=== PATIENT | female | born 1955 | race Caucasian/White ===

== ENCOUNTER 2017-09-29 22:50 | Inpatient (IN) | payer MEDICARE, OTHER ==
[~2017-09-29] VITALS: Ht 162.6 cm; Wt 61.0 kg
[~2017-09-29 22:50] MED LIST: ACET325T9 PO; ASPI-612 PO; BISA10SU2 RC; CALC500T54 PO; CITA20TA9 PO; DOCU-109 PO; FELB400T2 PO; FERR325T14 PO; LACO150T PO; LEVE250T30 PO; LOPE2CAP PO; PHEN32.424 PO; SENN1TAB15 PO; TRAM50TA PO; [UNRECOGNIZED DRUG - CODE] PO
[2017-09-29] MEDS ORDERED: ACETAMINOPHEN 325 MG TABLET PO PRN (23:15)
[2017-09-29] MEDS ORDERED: MAG HYDROX/AL HYDROX/SIMETH 30 ML ORAL.SUSP PO PRN (23:15)
[2017-09-29] MEDS ORDERED: MAGNESIUM HYDROXIDE 2,400 MG/30 ML ORAL.SUSP. PO PRN (23:15)
[2017-09-29] MEDS ORDERED: METHYL SALICYLATE/MENTHOL TOPICAL OINTMENT 29GM TUBE. TP PRN (23:15)
[2017-09-30] MEDS ORDERED: PHEN64.8 PO (00:02)
[2017-09-30] MEDS ORDERED: MULT1TAB57 PO (00:02)
[2017-09-30] MEDS ORDERED: CHOL10003 PO (00:02)
[2017-09-30] MEDS ORDERED: CALC500O PO (00:02)
[2017-09-30] MEDS ORDERED: MAGN400T3 PO (00:02)
[2017-09-30] MEDS ORDERED: POTA10TA10 PO (00:02)
[2017-09-30] MEDS ORDERED: LEVO75TA5 PO (00:02)
[2017-09-30] MEDS ORDERED: PANT40TA5 PO (00:03)
[2017-09-30] MEDS ORDERED: SULF1TAB24 PO (00:03)
[2017-09-30] MEDS ORDERED: MAGN2400 PO (00:03)
[2017-09-30] MEDS ORDERED: VENL37.57 PO (00:03)
[2017-09-30] MEDS ORDERED: ATOR10TA60 PO (00:03)
[2017-09-30] MEDS ORDERED: POLY17PO5 PO (00:03)
[2017-09-30] MEDS ORDERED: QUET25TA5 PO (00:03)
[2017-09-30] MEDS ORDERED: HALO1TAB PO (00:03)
[2017-09-30] MEDS ORDERED: MAGNESIUM OXIDE 400 MG PO SCH (00:15)
[2017-09-30] MEDS ORDERED: NON FORMULARY ITEM (Quetiapine Fumarate (Seroquel) 25 MG) PO SCH (00:15)
[2017-09-30] MEDS ORDERED: SENNOSIDES/DOCUSATE 8.6/50MG TABLET. PO PRN (00:15)
[2017-09-30] MEDS ORDERED: NON FORMULARY ITEM (Polyethylene Glycol 3350 (Miralax) 17 GM) PO PRN (00:15)
[2017-09-30] MEDS ORDERED: CALCIUM CARBONATE PO SCH (00:15)
[2017-09-30] MEDS ORDERED: traMADol 50 MG TABLET PO PRN (00:15)
[2017-09-30] MEDS ORDERED: LACOSAMIDE 150 MG PO SCH (00:15)
[2017-09-30] MEDS ORDERED: LEVETIRACETAM 750 MG PO SCH (00:15)
[2017-09-30] MEDS ORDERED: HALOPERIDOL 1 MG PO SCH (00:15)
[2017-09-30] MEDS ORDERED: NON FORMULARY ITEM (Bisacodyl 10 MG) RC PRN (00:15)
[2017-09-30] MEDS ORDERED: POLYETHYLENE GLYCOL 3350 17 GM PACKET. PO PRN (01:15)
[2017-09-30] MEDS ORDERED: BISACODYL 10 MG SUPP.RECT PR PRN (01:15)
[2017-09-30] MEDS: LEVOTHYROXINE 75 MCG TABLET PO SCH (04:27)
[2017-09-30 08:30] LABS: BASO % 1 % (0-3); EOS # 0.5 x10^3/uL (0.0-0.7); EOS % 12 % (0-3); HEMATOCRIT 37.8 % (36.0-47.0); HEMOGLOBIN 12.9 g/dL (12.0-15.5); LYMPH # 1.4 x10^3/uL (1.0-4.8); LYMPH % 34 % (24-48); MEAN CORPUSCULAR HEMOGLOBIN 31 pg (25-35); MEAN CORPUSCULAR HGB CONC 34 g/dL (31-37); MEAN CORPUSCULAR VOLUME 91 fL (79-100); MONO # 0.4 x10^3/uL (0.0-1.1); MONO % 10 % (0-9); NEUT # 1.8 x10^3uL (1.8-7.7); NEUT % 43 % (31-73); PLATELET COUNT 201 x10^3/uL (140-400); RED BLOOD COUNT 4.14 x10^6/uL (3.50-5.40); RED CELL DISTRIBUTION WIDTH 13.4 % (11.5-14.5); WHITE BLOOD COUNT 4.1 x10^3/uL (4.0-11.0)
[2017-09-30] MEDS ORDERED: NON FORMULARY ITEM (Potassium Chloride 10 MEQ) PO SCH (09:00)
[2017-09-30] MEDS ORDERED: MULTIVITS TH W FE OTHER MIN PO SCH (09:00)
[2017-09-30] MEDS ORDERED: PANTOPRAZOLE SODIUM 40 MG PO SCH (09:00)
[2017-09-30 09:50] LABS: ALBUMIN 3.2 g/dL (3.4-5.0); ALBUMIN/GLOBULIN RATIO 0.9 (1.0-1.7); CALCIUM 9.3 mg/dL (8.5-10.1); CREATININE 0.5 mg/dL (0.6-1.0); GFR 124.2; MAGNESIUM 1.8 mg/dL (1.8-2.4); POTASSIUM 3.8 mmol/L (3.5-5.1); TOTAL BILIRUBIN 0.2 mg/dL (0.2-1.0); TOTAL PROTEIN 6.9 g/dL (6.4-8.2)
[2017-09-30] MEDS: FELBAMATE 400 MG TABLET PO SCH ×3 (10:00→19:47)
[2017-09-30] MEDS: SMZ/TMP 800/160MG TABLET. PO SCH ×2 (10:01→19:47)
[2017-09-30] MEDS: PANTOPRAZOLE 40 MG TABLET. PO SCH ×2 (10:02→16:32)
[2017-09-30] MEDS: HALOPERIDOL 1 MG TABLET PO SCH ×3 (10:02→16:32)
[2017-09-30] MEDS: CHOLECALCIFEROL (VITAMIN D3) 1,000 UNIT TABLET PO SCH (10:02)
[2017-09-30] MEDS: LACOSAMIDE 50 MG TABLET PO SCH ×2 (10:02→16:32)
[2017-09-30] MEDS: levETIRAcetam 250 MG TABLET PO SCH ×2 (10:02→16:32)
[2017-09-30] MEDS: MAGNESIUM OXIDE 400 MG TABLET PO SCH ×3 (10:03→19:43)
[2017-09-30] MEDS: VENLAFAXINE XR 37.5 MG CAP.ER.24H. PO SCH (10:03)
[2017-09-30] MEDS: QUEtiapine 25 MG TABLET. PO SCH ×3 (10:03→19:44)
[2017-09-30] MEDS: FERROUS SULFATE 325 MG TABLET. PO SCH ×2 (10:03→16:32)
[2017-09-30] MEDS: CALCIUM CARBONATE 500 MG TABLET PO SCH ×2 (10:04→16:34)
[2017-09-30 11:46] VITALS: BP 121/76
[2017-09-30 13:52] LABS: THYROID STIM HORMONE (TSH) 0.042 uIU/mL (0.358-3.740)
[2017-09-30 13:54] LABS: PHENOBARB 14.8 mcg/mL (15.0-40.0)
[2017-09-30 16:16] VITALS: BP 102/66
--- NOTE | 2017-09-30 16:58 | EKG ---
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
[2017-09-30] MEDS ORDERED: traZODone 50 MG TABLET. PO PRN (18:45)
[2017-09-30] MEDS: ATORVASTATIN CALCIUM 10 MG TABLET. PO SCH (19:47)
[2017-09-30] MEDS: PHENobarbital 32.4 MG TABLET. PO SCH (19:48)
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
[2017-09-30] MEDS ORDERED: VENLAFAXINE HCL PO SCH (21:00)
[2017-09-30] MEDS ORDERED: ATORVASTATIN CALCIUM 5 MG PO SCH (21:00)
[2017-09-30] MEDS ORDERED: PHENOBARBITAL 64.8 MG PO SCH (21:00)
--- NOTE | 2017-09-30 21:01 | PDOC ---
Exam Note: David Note: Please also refer to the separate dictated note~for this date of service dictated separately.~Patient seen individually. Discussed the patient with Nursing staff reviewed the chart.~Reviewed interim history and current functioning. Reviewed vital signs,~Labs/ Radiology~and current medications noted below. Continue current treatment with the changes noted in the dictated addendum note Assessment: Vital Signs: Vital Signs Date Time Temp Pulse Resp B/P (MAP) Pulse Ox O2 Delivery O2 Flow Rate FiO2 09/30/17 16:16 98.1 68 16 102/66 (78) 95 Room Air 09/30/17 11:46 96.0 Labs: Laboratory Tests Test 09/30/17 08:12 White Blood Count 4.1 x10^3/uL (4.0-11.0) Red Blood Count 4.14 x10^6/uL (3.50-5.40) Hemoglobin 12.9 g/dL (12.0-15.5) Hematocrit 37.8 % (36.0-47.0) Mean Corpuscular Volume 91 fL (79-100) Mean Corpuscular Hemoglobin 31 pg (25-35) Mean Corpuscular Hemoglobin Concent 34 g/dL (31-37) Red Cell Distribution Width 13.4 % (11.5-14.5) Platelet Count 201 x10^3/uL (140-400) Neutrophils (%) (Auto) 43 % (31-73) Lymphocytes (%) (Auto) 34 % (24-48) Monocytes (%) (Auto) 10 % (0-9) H Eosinophils (%) (Auto) 12 % (0-3) H Basophils (%) (Auto) 1 % (0-3) Neutrophils # (Auto) 1.8 x10^3uL (1.8-7.7) Lymphocytes # (Auto) 1.4 x10^3/uL (1.0-4.8) Monocytes # (Auto) 0.4 x10^3/uL (0.0-1.1) Eosinophils # (Auto) 0.5 x10^3/uL (0.0-0.7) Basophils # (Auto) 0.0 x10^3/uL (0.0-0.2) Sodium Level 143 mmol/L (136-145) Potassium Level 3.8 mmol/L (3.5-5.1) Chloride Level 105 mmol/L (98-107) Carbon Dioxide Level 32 mmol/L (21-32) Anion Gap 6 (6-14) Blood Urea Nitrogen 14 mg/dL (7-20) Creatinine 0.5 mg/dL (0.6-1.0) L Estimated GFR (Cockcroft-Gault) 124.2 BUN/Creatinine Ratio 28 (6-20) H Glucose Level 98 mg/dL (70-99) Calcium Level 9.3 mg/dL (8.5-10.1) Magnesium Level 1.8 mg/dL (1.8-2.4) Iron Level 77 ug/dL (50-170) Total Iron Binding Capacity 257 ug/dL (250-450) Iron Saturation 30 % (15-34) Total Bilirubin 0.2 mg/dL (0.2-1.0) Aspartate Amino Transferase (AST) 17 U/L (15-37) Alanine Aminotransferase (ALT) 20 U/L (14-59) Alkaline Phosphatase 136 U/L (46-116) H Total Protein 6.9 g/dL (6.4-8.2) Albumin 3.2 g/dL (3.4-5.0) L Albumin/Globulin Ratio 0.9 (1.0-1.7) L Triglycerides Level 80 mg/dL (0-150) Cholesterol Level 207 mg/dL (0-200) H LDL Cholesterol, Calculated 126 mg/dL (0-100) H VLDL Cholesterol, Calculated 16 mg/dL (0-40) Non-HDL Cholesterol Calculated 142 mg/dL (0-129) H HDL Cholesterol 65 mg/dL (40-60) H Cholesterol/HDL Ratio 3.0 Vitamin B12 Level 263 pg/mL (247-911) 25-Hydroxy Vitamin D Total 37.6 ng/mL (30-100) Thyroid Stimulating Hormone (TSH) 0.042 uIU/mL (0.358-3.740) Phenobarbital Level 14.8 mcg/mL (15.0-40.0) L Phenobarbital Last Dose Date 09/28/17 Phenobarbital Last Dose Time 21:00 Treponema pallidum Antibody Nonreactive (Nonreactive) Current Medications: Meds: Current Medications Acetaminophen (Tylenol) 650 mg PRN Q6HRS PRN PO PAIN / TEMP; Start 09/29/17 at 23:15 Multi-Ingredient Ointment (Analgesic [place]) 1 vale PRN QID PRN TP MUSCLE PAIN; Start 09/29/17 at 23:15 Al Hydroxide/Mg Hydroxide (Mylanta Plus Xs) 15 ml PRN AFTMEALHC PRN PO DYSPEPSIA; Start 09/29/17 at 23:15 Magnesium Hydroxide (Milk Of Magnesia) 2,400 mg PRN QHS PRN PO CONSTIPATION; Start 09/29/17 at 23:15 Non-Formulary Medication (Haloperidol ) 1 mg TID AT 12/26/1699 PO ; Start at 00:15; Stop 09/30/17 at 00:58; Status DC Non-Formulary Medication (Quetiapine Fumarate (Seroquel)) 25 mg TID AT 1999 PO ; Start 09/30/17 at 00:15; Stop 09/30/17 at 00:58; Status DC Non-Formulary Medication (Venlafaxine Hcl (Venlafaxine Hcl Er)) 112.5 mg HS PO ; Start 09/30/17 at 21:00; Stop 09/30/17 at 21:00; Status DC Vitamin D (Vitamin D3) 1,000 unit DAILY PO Last administered on 09/30/17at 10:02 ; Start 09/30/17 at 09:00 Felbamate (Felbatol) 800 mg TID PO Last administered on 09/30/17at 19:47; Start 09/30/17 at 09:00 Ferrous Sulfate (Feosol) 325 mg BIDAFTMEAL PO Last administered on 09/30/17at 16 :32; Start 09/30/17 at 09:00 Levothyroxine Sodium (Synthroid) 75 mcg DAILY06 PO Last administered on at 04:27; Start 09/30/17 at 06:00 Senna/Docusate Sodium (Senna Plus) 1 tab PRN BID PRN PO CONSTIPATION; Start at 00:15 Trimethoprim/ Sulfamethoxazole (Bactrim Ds) 1 tab BID PO Last administered on at 19:47; Start 09/30/17 at 09:00 Tramadol HCl (Ultram) 50 mg PRN Q6HRS PRN PO PAIN; Start 09/30/17 at 00:15 Non-Formulary Medication (Atorvastatin Calcium ) 5 mg QHS PO ; Start 09/30/17 at 21:00; Stop 09/30/17 at 21:00; Status DC Non-Formulary Medication (Bisacodyl ) 10 mg PRN DAILY PRN RC CONSTIPATION; Start 09/30/17 at 00:15; Stop 09/30/17 at 00:58; Status DC Non-Formulary Medication (Calcium Carbonate ) 5 ml BID AT 0600, 1800 PO ; Start 09/30/17 at 00:15; Stop 09/30/17 at 00:58; Status DC Non-Formulary Medication (Lacosamide (Vimpat)) 150 mg BID AT 0900, 1700 PO ; Start 09/30/17 at 00:15; Stop 09/30/17 at 00:58; Status DC Non-Formulary Medication (Levetiracetam (Keppra)) 750 mg BID AT 0900, 1700 PO ; Start 09/30/17 at 00:15; Stop 09/30/17 at 00:58; Status DC Non-Formulary Medication (Magnesium Oxide ) 400 mg TID AT 12/30/2099 PO ; Start 09/30/17 at 00:15; Stop 09/30/17 at 00:58; Status DC Non-Formulary Medication (Multivits,Th W-Fe,Other Min (Therems-M)) 1 tab DAILY PO ; Start 09/30/17 at 09:00; Stop 09/30/17 at 09:00; Status DC Non-Formulary Medication (Pantoprazole Sodium ) 40 mg BID PO ; Start 09/30/17 at 09:00; Stop 09/30/17 at 09:00; Status DC Non-Formulary Medication (Phenobarbital ) 64.8 mg HS PO ; Start 09/30/17 at 21: 00; Stop 09/30/17 at 21:00; Status DC Non-Formulary Medication (Polyethylene Glycol 3350 (Miralax)) 17 gm PRN DAILY PRN PO CONSTIPATION; Start 09/30/17 at 00:15; Stop 09/30/17 at 00:58; Status DC Non-Formulary Medication (Potassium Chloride ) 10 meq DAILY PO ; Start 09/30/17 at 09:00; Stop 09/30/17 at 09:00; Status DC Haloperidol (Haldol) 1 mg TIDPC PO Last administered on 09/30/17 16:32; Start 09/30/17 at 08:30 Quetiapine Fumarate (SEROquel) 25 mg TID PO Last administered on 09/30/17 19: 44; Start 09/30/17 at 09:00 Venlafaxine HCl (Effexor Xr) 112.5 mg DAILY PO Last administered on 09/30/17 10:03; Start 09/30/17 at 09:00 Calcium Carbonate/ Glycine (Oscal) 1,250 mg BID66 PO Last administered on 16:34; Start 09/30/17 at 06:00 Pantoprazole Sodium (Protonix) 40 mg BIDBFRMEAL PO Last administered on 16:32; Start 09/30/17 at 07:30 Magnesium Oxide (Magnesium Oxide) 400 mg TID PO Last administered on 09/30/17 19:43; Start 09/30/17 at 09:00 Atorvastatin Calcium (Lipitor) 5 mg QHS PO Last administered on 09/30/17 19:47 ; Start 09/30/17 at 21:00 Lacosamide (Vimpat) 200 mg BIDAFTMEAL PO Last administered on 09/30/17 16:32; Start 09/30/17 at 09:00 Levetiracetam (Keppra) 750 mg BIDAFTMEAL PO Last administered on 09/30/17 16: 32; Start 09/30/17 at 09:00 Phenobarbital (Luminal) 64.8 mg QHS PO Last administered on 09/30/17 19:48; Start 09/30/17 at 21:00 Polyethylene Glycol (miraLAX) 17 gm PRN DAILY PRN PO CONSTIPATION; Start at 01:15 Bisacodyl (Dulcolax Supp) 10 mg PRN DAILY PRN [place] CONSTIPATION; Start 09/30/17 at 01:15 Trazodone HCl (Desyrel) 50 mg PRN QHS PRN PO INSOMNIA; Start 09/30/17 at 18:45 Active Scripts Active Reported Bactrim Ds Tablet (Sulfamethoxazole/Trimethoprim) 1 Each Tablet 1 Tab PO BID X3 DAYS Miralax (Polyethylene Glycol 3350) 17 Gm Powd.pack 17 Gm PO PRN DAILY PRN Milk Of Magnesia (Magnesium Hydroxide) 2,400 Mg/10 Ml Oral.susp 2,400 Mg PO PRN DAILY PRN Venlafaxine Hcl Er (Venlafaxine Hcl) 37.5 Mg Cap.er.24h 112.5 Mg PO HS Atorvastatin Calcium 10 Mg Tablet 5 Mg PO QHS Seroquel (Quetiapine Fumarate) 25 Mg Tablet 25 Mg PO TID AT 12/28/1999 Haloperidol 1 Mg Tablet 1 Mg PO TID AT 12/26/1699 Pantoprazole Sodium 40 Mg Tablet.dr 40 Mg PO BID Vitamin D3 (Cholecalciferol (Vitamin D3)) 1,000 Unit Tablet 1,000 Unit PO DAILY Therems-M (Multivits, W-,Other Min) 1 Each Tablet 1 Tab PO DAILY Potassium Chloride 10 Meq Tablet.er 10 Meq PO DAILY Levothyroxine Sodium 75 Mcg Tablet 75 Mcg PO DAILYAC Phenobarbital 64.8 Mg Tablet 64.8 Mg PO HS Calcium Carbonate 500 Mg/5 Ml Oral.susp 5 Ml PO BID AT 0600, 1800 Magnesium Oxide 400 Mg Tablet 400 Mg PO TID AT 12/30/2099 Vimpat (Lacosamide) 150 Mg Tablet 150 Mg PO BID AT 0900, 1700 Tylenol (Acetaminophen) 325 Mg Tablet 650 Mg PO PRN Q6HRS PRN Tramadol Hcl (Tramadol HCl) 50 Mg Tablet 50 Mg PO PRN Q6HRS PRN Senna-S Tablet (Sennosides/Docusate Sodium) 1 Each Tablet 1 Tab PO PRN BID PRN Keppra (Levetiracetam) 250 Mg Tablet 750 Mg PO BID AT 0900, 1700 Ferrous Sulfate 325 Mg Tablet 325 Mg PO BIDAFTMEAL Bisacodyl 10 Mg Supp.rect 10 Mg RC PRN DAILY PRN Felbamate 400 Mg Tablet 800 Mg PO TID AT 12/26/1699 I have reviewed the current psychotropics carefully including drug interactions. Risk benefit ratio favors no change other than as noted in my dictated progress note. Diagnosis: Problems: (1) Functional diarrhea (2) urinary tract infection (3) Left hip arthroplasty (4) Severe major depression with psychotic features (5) Adjustment disorder with depressed mood (6) Bipolar affective, mixed (7) Impulse control disorder (8) Dementia, vascular, with delusions (9) Dementia, vascular, with depression HARVEY QUIJANO MD Sep 30, 2017 21:01
[2017-10-01 01:10] LABS: HEMOGLOBIN A1C 5.1 % (4.8-5.6)
[2017-10-01 02:08] LABS: THYROXINE 8.2 ug/dL (4.5-12.0)
[2017-10-01] MEDS: LEVOTHYROXINE 75 MCG TABLET PO SCH (05:58)
[2017-10-01] MEDS: CALCIUM CARBONATE 500 MG TABLET PO SCH ×2 (05:58→17:49)
[2017-10-01 06:08] VITALS: BP 91/61
[2017-10-01] MEDS: MAGNESIUM OXIDE 400 MG TABLET PO SCH ×3 (08:22→20:07)
[2017-10-01] MEDS: SMZ/TMP 800/160MG TABLET. PO SCH ×2 (08:22→20:07)
[2017-10-01] MEDS: HALOPERIDOL 1 MG TABLET PO SCH ×4 (08:22→20:10)
[2017-10-01] MEDS: CHOLECALCIFEROL (VITAMIN D3) 1,000 UNIT TABLET PO SCH (08:23)
[2017-10-01] MEDS: QUEtiapine 25 MG TABLET. PO SCH ×3 (08:23→20:07)
[2017-10-01] MEDS: LACOSAMIDE 50 MG TABLET PO SCH ×2 (08:27→17:48)
[2017-10-01] MEDS: levETIRAcetam 250 MG TABLET PO SCH ×2 (08:27→17:49)
[2017-10-01] MEDS: VENLAFAXINE XR 37.5 MG CAP.ER.24H. PO SCH (08:27)
[2017-10-01] MEDS: FELBAMATE 400 MG TABLET PO SCH ×3 (08:28→20:13)
[2017-10-01] MEDS: PANTOPRAZOLE 40 MG TABLET. PO SCH ×2 (08:30→17:49)
[2017-10-01] MEDS: FERROUS SULFATE 325 MG TABLET. PO SCH ×2 (08:30→17:49)
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
[2017-10-01 15:51] VITALS: BP 102/71
[2017-10-01] MEDS: ATORVASTATIN CALCIUM 10 MG TABLET. PO SCH (20:07)
[2017-10-01] MEDS: PHENobarbital 32.4 MG TABLET. PO SCH (20:10)
[2017-10-01] MEDS: LACTOBACILLUS RHAMNOSUS GG 1 CAPSULE. PO SCH (20:10)
--- NOTE | 2017-10-01 21:01 | PDOC ---
Exam Note: David Note: Please also refer to the separate dictated note~for this date of service dictated separately.~Patient seen individually. Discussed the patient with Nursing staff reviewed the chart.~Reviewed interim history and current functioning. Reviewed vital signs,~Labs/ Radiology~and current medications noted below. Continue current treatment with the changes noted in the dictated addendum note Assessment: Vital Signs: Vital Signs Date Time Temp Pulse Resp B/P (MAP) Pulse Ox O2 Delivery O2 Flow Rate FiO2 10/01/17 15:51 97.8 85 17 102/71 (81) 97 09/30/17 16:16 Room Air 09/30/17 11:46 96.0 I&O Intake and Output 10/01/17 07:00 Intake Total 300 ml Balance 300 ml Intake Oral 300 ml # Bowel Movements 1 Current Medications: Meds: Current Medications Acetaminophen (Tylenol) 650 mg PRN Q6HRS PRN PO PAIN / TEMP; Start 09/29/17 at 23:15 Multi-Ingredient Ointment (Analgesic [place]) 1 vale PRN QID PRN TP MUSCLE PAIN; Start 09/29/17 at 23:15 Al Hydroxide/Mg Hydroxide (Mylanta Plus Xs) 15 ml PRN AFTMEALHC PRN PO DYSPEPSIA; Start 09/29/17 at 23:15 Magnesium Hydroxide (Milk Of Magnesia) 2,400 mg PRN QHS PRN PO CONSTIPATION; Start 09/29/17 at 23:15 Non-Formulary Medication (Haloperidol ) 1 mg TID AT 12/26/1699 PO ; Start at 00:15; Stop 09/30/17 at 00:58; Status DC Non-Formulary Medication (Quetiapine Fumarate (Seroquel)) 25 mg TID AT 1999 PO ; Start 09/30/17 at 00:15; Stop 09/30/17 at 00:58; Status DC Non-Formulary Medication (Venlafaxine Hcl (Venlafaxine Hcl Er)) 112.5 mg HS PO ; Start 09/30/17 at 21:00; Stop 09/30/17 at 21:00; Status DC Vitamin D (Vitamin D3) 1,000 unit DAILY PO Last administered on 10/01/17at 08:23 ; Start 09/30/17 at 09:00 Felbamate (Felbatol) 800 mg TID PO Last administered on 10/01/17at 20:13; Start 09/30/17 at 09:00 Ferrous Sulfate (Feosol) 325 mg BIDAFTMEAL PO Last administered on 10/01/17at 17 :49; Start 09/30/17 at 09:00 Levothyroxine Sodium (Synthroid) 75 mcg DAILY06 PO Last administered on at 05:58; Start 09/30/17 at 06:00 Senna/Docusate Sodium (Senna Plus) 1 tab PRN BID PRN PO CONSTIPATION; Start at 00:15 Trimethoprim/ Sulfamethoxazole (Bactrim Ds) 1 tab BID PO Last administered on at 20:07; Start 09/30/17 at 09:00 Tramadol HCl (Ultram) 50 mg PRN Q6HRS PRN PO PAIN; Start 09/30/17 at 00:15 Non-Formulary Medication (Atorvastatin Calcium ) 5 mg QHS PO ; Start 09/30/17 at 21:00; Stop 09/30/17 at 21:00; Status DC Non-Formulary Medication (Bisacodyl ) 10 mg PRN DAILY PRN RC CONSTIPATION; Start 09/30/17 at 00:15; Stop 09/30/17 at 00:58; Status DC Non-Formulary Medication (Calcium Carbonate ) 5 ml BID AT 0600, 1800 PO ; Start 09/30/17 at 00:15; Stop 09/30/17 at 00:58; Status DC Non-Formulary Medication (Lacosamide (Vimpat)) 150 mg BID AT 0900, 1700 PO ; Start 09/30/17 at 00:15; Stop 09/30/17 at 00:58; Status DC Non-Formulary Medication (Levetiracetam (Keppra)) 750 mg BID AT 0900, 1700 PO ; Start 09/30/17 at 00:15; Stop 09/30/17 at 00:58; Status DC Non-Formulary Medication (Magnesium Oxide ) 400 mg TID AT 12/30/2099 PO ; Start 09/30/17 at 00:15; Stop 09/30/17 at 00:58; Status DC Non-Formulary Medication (Multivits,Th W-Fe,Other Min (Therems-M)) 1 tab DAILY PO ; Start 09/30/17 at 09:00; Stop 09/30/17 at 09:00; Status DC Non-Formulary Medication (Pantoprazole Sodium ) 40 mg BID PO ; Start 09/30/17 at 09:00; Stop 09/30/17 at 09:00; Status DC Non-Formulary Medication (Phenobarbital ) 64.8 mg HS PO ; Start 09/30/17 at 21: 00; Stop 09/30/17 at 21:00; Status DC Non-Formulary Medication (Polyethylene Glycol 3350 (Miralax)) 17 gm PRN DAILY PRN PO CONSTIPATION; Start 09/30/17 at 00:15; Stop 09/30/17 at 00:58; Status DC Non-Formulary Medication (Potassium Chloride ) 10 meq DAILY PO ; Start 09/30/17 at 09:00; Stop 09/30/17 at 09:00; Status DC Haloperidol (Haldol) 1 mg TIDPC PO Last administered on 10/01/17at 17:48; Start 09/30/17 at 08:30; Stop 10/01/17 at 18:14; Status DC Quetiapine Fumarate (SEROquel) 25 mg TID PO Last administered on 10/01/17at 20: 07; Start 09/30/17 at 09:00 Venlafaxine HCl (Effexor Xr) 112.5 mg DAILY PO Last administered on 10/01/17at 08:27; Start 09/30/17 at 09:00; Stop 10/01/17 at 18:14; Status DC Calcium Carbonate/ Glycine (Oscal) 1,250 mg BID66 PO Last administered on at 17:49; Start 09/30/17 at 06:00 Pantoprazole Sodium (Protonix) 40 mg BIDBFRMEAL PO Last administered on at 17:49; Start 09/30/17 at 07:30 Magnesium Oxide (Magnesium Oxide) 400 mg TID PO Last administered on 10/01/17at 20:07; Start 09/30/17 at 09:00 Atorvastatin Calcium (Lipitor) 5 mg QHS PO Last administered on 10/01/17at 20:07 ; Start 09/30/17 at 21:00 Lacosamide (Vimpat) 200 mg BIDAFTMEAL PO Last administered on 10/01/17at 17:48; Start 09/30/17 at 09:00 Levetiracetam (Keppra) 750 mg BIDAFTMEAL PO Last administered on 10/01/17at 17: 49; Start 09/30/17 at 09:00 Phenobarbital (Luminal) 64.8 mg QHS PO Last administered on 10/01/17at 20:10; Start 09/30/17 at 21:00 Polyethylene Glycol (miraLAX) 17 gm PRN DAILY PRN PO CONSTIPATION; Start at 01:15 Bisacodyl (Dulcolax Supp) 10 mg PRN DAILY PRN [place] CONSTIPATION; Start 09/30/17 at 01:15 Trazodone HCl (Desyrel) 50 mg PRN QHS PRN PO INSOMNIA; Start 09/30/17 at 18:45 Lactobacillus Rhamnosus (Culturelle) 1 cap BID PO Last administered on at 20:10; Start 10/01/17 at 21:00 Haloperidol (Haldol) 1 mg BID PO Last administered on 10/01/17at 20:10; Start at 21:00; Stop 10/03/17 at 21:01 Duloxetine HCl (Cymbalta) 30 mg DAILY PO ; Start 10/02/17 at 09:00; Stop at 09:01 Duloxetine HCl (Cymbalta) 60 mg DAILY PO ; Start 10/05/17 at 09:00 Haloperidol (Haldol) 1 mg DAILY PO ; Start 10/04/17 at 09:00; Stop 10/05/17 at 09:01 Active Scripts Active Reported Bactrim Ds Tablet (Sulfamethoxazole/Trimethoprim) 1 Each Tablet 1 Tab PO BID X3 DAYS Miralax (Polyethylene Glycol 3350) 17 Gm Powd.pack 17 Gm PO PRN DAILY PRN Milk Of Magnesia (Magnesium Hydroxide) 2,400 Mg/10 Ml Oral.susp 2,400 Mg PO PRN DAILY PRN Venlafaxine Hcl Er (Venlafaxine Hcl) 37.5 Mg Cap.er.24h 112.5 Mg PO HS Atorvastatin Calcium 10 Mg Tablet 5 Mg PO QHS Seroquel (Quetiapine Fumarate) 25 Mg Tablet 25 Mg PO TID AT 12/28/1999 Haloperidol 1 Mg Tablet 1 Mg PO TID AT 12/26/1699 Pantoprazole Sodium 40 Mg Tablet.dr 40 Mg PO BID Vitamin D3 (Cholecalciferol (Vitamin D3)) 1,000 Unit Tablet 1,000 Unit PO DAILY Therems-M (Multivits,Th W-Fe,Other Min) 1 Each Tablet 1 Tab PO DAILY Potassium Chloride 10 Meq Tablet.er 10 Meq PO DAILY Levothyroxine Sodium 75 Mcg Tablet 75 Mcg PO DAILYAC Phenobarbital 64.8 Mg Tablet 64.8 Mg PO HS Calcium Carbonate 500 Mg/5 Ml Oral.susp 5 Ml PO BID AT 0600, 1800 Magnesium Oxide 400 Mg Tablet 400 Mg PO TID AT 12/30/2099 Vimpat (Lacosamide) 150 Mg Tablet 150 Mg PO BID AT 0900, 1700 Tylenol (Acetaminophen) 325 Mg Tablet 650 Mg PO PRN Q6HRS PRN Tramadol Hcl (Tramadol HCl) 50 Mg Tablet 50 Mg PO PRN Q6HRS PRN Senna-S Tablet (Sennosides/Docusate Sodium) 1 Each Tablet 1 Tab PO PRN BID PRN Keppra (Levetiracetam) 250 Mg Tablet 750 Mg PO BID AT 0900, 1700 Ferrous Sulfate 325 Mg Tablet 325 Mg PO BIDAFTMEAL Bisacodyl 10 Mg Supp.rect 10 Mg RC PRN DAILY PRN Felbamate 400 Mg Tablet 800 Mg PO TID AT 12/26/1699 I have reviewed the current psychotropics carefully including drug interactions. Risk benefit ratio favors no change other than as noted in my dictated progress note. Diagnosis: Problems: (1) Functional diarrhea (2) urinary tract infection (3) Left hip arthroplasty (4) Severe major depression with psychotic features (5) Adjustment disorder with depressed mood (6) Bipolar affective, mixed (7) Impulse control disorder (8) Dementia, vascular, with delusions (9) Dementia, vascular, with depression HARVEY QUIJANO MD Oct 01, 2017 21:01
[2017-10-02 06:03] VITALS: BP 102/65
[2017-10-02] MEDS: LEVOTHYROXINE 75 MCG TABLET PO SCH (06:16)
[2017-10-02] MEDS: CALCIUM CARBONATE 500 MG TABLET PO SCH ×2 (06:17→16:50)
[2017-10-02] MEDS: LACOSAMIDE 50 MG TABLET PO SCH ×2 (09:07→16:54)
[2017-10-02] MEDS: FERROUS SULFATE 325 MG TABLET. PO SCH ×2 (09:07→16:36)
[2017-10-02] MEDS: LACTOBACILLUS RHAMNOSUS GG 1 CAPSULE. PO SCH ×2 (09:07→20:16)
[2017-10-02] MEDS: CHOLECALCIFEROL (VITAMIN D3) 1,000 UNIT TABLET PO SCH (09:07)
[2017-10-02] MEDS: levETIRAcetam 250 MG TABLET PO SCH ×2 (09:07→16:50)
[2017-10-02] MEDS: MAGNESIUM OXIDE 400 MG TABLET PO SCH ×3 (09:07→20:17)
[2017-10-02] MEDS: PANTOPRAZOLE 40 MG TABLET. PO SCH ×2 (09:07→16:30)
[2017-10-02] MEDS: SMZ/TMP 800/160MG TABLET. PO SCH ×2 (09:07→20:16)
[2017-10-02] MEDS: HALOPERIDOL 1 MG TABLET PO SCH ×2 (09:08→20:16)
[2017-10-02] MEDS: QUEtiapine 25 MG TABLET. PO SCH ×3 (09:08→20:17)
[2017-10-02] MEDS: DULoxetine HCL 30 MG CAPSULE.DR PO SCH (09:11)
[2017-10-02] MEDS: FELBAMATE 400 MG TABLET PO SCH ×3 (09:11→16:34)
--- NOTE | 2017-10-02 14:03 | PN ---
DATE: 10/01/2017 PSYCHIATRIC PROGRESS NOTE This late entry 10/01/2017 covers the elements not covered in my initial note. SUBJECTIVE: Per nursing report, the patient has been argumentative, irritable, rude, resistive but compliant to medications at times. Refused her morning meds and assessment. REVIEW OF SYSTEMS: No CV, , pulmonary, eye, ENT system symptoms on review. MENTAL STATUS EXAM: Oriented to herself and situation. Speech moderate latency, often responses monosyllabic. Abstraction fair, computation impaired, language function intact, attention span short. Mood and affect, somewhat depressed. LABORATORY DATA: Reviewed. IMPRESSION: Major depressive disorder with psychotic features; major neurocognitive disorder, Alzheimer, vascular with delusion, depression; anxiety disorder, unspecified. PLAN: We will go ahead and taper the Haldol, which she is currently on 1 mg 3 times a day down to twice a day for 2 days once a day for 2 days and stop it since she is also on Seroquel 25 mg 3 times a day. Stopping the Haldol would avoid unnecessary duplication of antipsychotics. Change the Effexor to Cymbalta 30 mg a day for 3 days and 60 mg a day for her mood, anxiety symptoms. HARVEY QUIJANO MD DR: LOYD/eboni JOB#: [id number] / [id number]
[2017-10-02 17:08] VITALS: BP 90/61
[2017-10-02] MEDS: ATORVASTATIN CALCIUM 10 MG TABLET. PO SCH (20:17)
[2017-10-02] MEDS: PHENobarbital 32.4 MG TABLET. PO SCH (20:17)
--- NOTE | 2017-10-02 20:50 | PDOC ---
Exam Note: David Note: Please also refer to the separate dictated note~for this date of service dictated separately.~Patient seen individually. Discussed the patient with Nursing staff reviewed the chart.~Reviewed interim history and current functioning. Reviewed vital signs,~Labs/ Radiology~and current medications noted below. Continue current treatment with the changes noted in the dictated addendum note Assessment: Vital Signs: Vital Signs Date Time Temp Pulse Resp B/P (MAP) Pulse Ox O2 Delivery O2 Flow Rate FiO2 10/02/17 17:08 97.7 73 18 90/61 (71) 98 09/30/17 16:16 Room Air 09/30/17 11:46 96.0 I&O Intake and Output 10/02/17 07:00 Intake Total 960 ml Balance 960 ml Intake Oral 960 ml # Voids 2 Current Medications: Meds: Current Medications Acetaminophen (Tylenol) 650 mg PRN Q6HRS PRN PO PAIN / TEMP; Start 09/29/17 at 23:15 Multi-Ingredient Ointment (Analgesic [place]) 1 vale PRN QID PRN TP MUSCLE PAIN; Start 09/29/17 at 23:15 Al Hydroxide/Mg Hydroxide (Mylanta Plus Xs) 15 ml PRN AFTMEALHC PRN PO DYSPEPSIA; Start 09/29/17 at 23:15 Magnesium Hydroxide (Milk Of Magnesia) 2,400 mg PRN QHS PRN PO CONSTIPATION; Start 09/29/17 at 23:15 Non-Formulary Medication (Haloperidol ) 1 mg TID AT 12/26/1699 PO ; Start at 00:15; Stop 09/30/17 at 00:58; Status DC Non-Formulary Medication (Quetiapine Fumarate (Seroquel)) 25 mg TID AT 1999 PO ; Start 09/30/17 at 00:15; Stop 09/30/17 at 00:58; Status DC Non-Formulary Medication (Venlafaxine Hcl (Venlafaxine Hcl Er)) 112.5 mg HS PO ; Start 09/30/17 at 21:00; Stop 09/30/17 at 21:00; Status DC Vitamin D (Vitamin D3) 1,000 unit DAILY PO Last administered on 10/02/17at 09:07 ; Start 09/30/17 at 09:00 Felbamate (Felbatol) 800 mg TID PO Last administered on 10/02/17at 16:34; Start 09/30/17 at 09:00 Ferrous Sulfate (Feosol) 325 mg BIDAFTMEAL PO Last administered on 10/02/17at 16 :36; Start 09/30/17 at 09:00 Levothyroxine Sodium (Synthroid) 75 mcg DAILY06 PO Last administered on at 06:16; Start 09/30/17 at 06:00 Senna/Docusate Sodium (Senna Plus) 1 tab PRN BID PRN PO CONSTIPATION; Start at 00:15 Trimethoprim/ Sulfamethoxazole (Bactrim Ds) 1 tab BID PO Last administered on at 20:16; Start 09/30/17 at 09:00 Tramadol HCl (Ultram) 50 mg PRN Q6HRS PRN PO PAIN; Start 09/30/17 at 00:15 Non-Formulary Medication (Atorvastatin Calcium ) 5 mg QHS PO ; Start 09/30/17 at 21:00; Stop 09/30/17 at 21:00; Status DC Non-Formulary Medication (Bisacodyl ) 10 mg PRN DAILY PRN RC CONSTIPATION; Start 09/30/17 at 00:15; Stop 09/30/17 at 00:58; Status DC Non-Formulary Medication (Calcium Carbonate ) 5 ml BID AT 0600, 1800 PO ; Start 09/30/17 at 00:15; Stop 09/30/17 at 00:58; Status DC Non-Formulary Medication (Lacosamide (Vimpat)) 150 mg BID AT 0900, 1700 PO ; Start 09/30/17 at 00:15; Stop 09/30/17 at 00:58; Status DC Non-Formulary Medication (Levetiracetam (Keppra)) 750 mg BID AT 0900, 1700 PO ; Start 09/30/17 at 00:15; Stop 09/30/17 at 00:58; Status DC Non-Formulary Medication (Magnesium Oxide ) 400 mg TID AT 12/30/2099 PO ; Start 09/30/17 at 00:15; Stop 09/30/17 at 00:58; Status DC Non-Formulary Medication (Multivits,Th W-Fe,Other Min (Therems-M)) 1 tab DAILY PO ; Start 09/30/17 at 09:00; Stop 09/30/17 at 09:00; Status DC Non-Formulary Medication (Pantoprazole Sodium ) 40 mg BID PO ; Start 09/30/17 at 09:00; Stop 09/30/17 at 09:00; Status DC Non-Formulary Medication (Phenobarbital ) 64.8 mg HS PO ; Start 09/30/17 at 21: 00; Stop 09/30/17 at 21:00; Status DC Non-Formulary Medication (Polyethylene Glycol 3350 (Miralax)) 17 gm PRN DAILY PRN PO CONSTIPATION; Start 09/30/17 at 00:15; Stop 09/30/17 at 00:58; Status DC Non-Formulary Medication (Potassium Chloride ) 10 meq DAILY PO ; Start 09/30/17 at 09:00; Stop 09/30/17 at 09:00; Status DC Haloperidol (Haldol) 1 mg TIDPC PO Last administered on 10/01/17at 17:48; Start 09/30/17 at 08:30; Stop 10/01/17 at 18:14; Status DC Quetiapine Fumarate (SEROquel) 25 mg TID PO Last administered on 10/02/17at 12: 22; Start 09/30/17 at 09:00; Stop 10/02/17 at 18:09; Status DC Venlafaxine HCl (Effexor Xr) 112.5 mg DAILY PO Last administered on 10/01/17at 08:27; Start 09/30/17 at 09:00; Stop 10/01/17 at 18:14; Status DC Calcium Carbonate/ Glycine (Oscal) 1,250 mg BID66 PO Last administered on at 16:50; Start 09/30/17 at 06:00 Pantoprazole Sodium (Protonix) 40 mg BIDBFRMEAL PO Last administered on at 16:30; Start 09/30/17 at 07:30 Magnesium Oxide (Magnesium Oxide) 400 mg TID PO Last administered on 10/02/17at 20:17; Start 09/30/17 at 09:00 Atorvastatin Calcium (Lipitor) 5 mg QHS PO Last administered on 10/02/17at 20:17 ; Start 09/30/17 at 21:00 Lacosamide (Vimpat) 200 mg BIDAFTMEAL PO Last administered on 10/02/17at 16:54; Start 09/30/17 at 09:00 Levetiracetam (Keppra) 750 mg BIDAFTMEAL PO Last administered on 10/02/17at 16: 50; Start 09/30/17 at 09:00 Phenobarbital (Luminal) 64.8 mg QHS PO Last administered on 10/02/17at 20:17; Start 09/30/17 at 21:00 Polyethylene Glycol (miraLAX) 17 gm PRN DAILY PRN PO CONSTIPATION; Start at 01:15 Bisacodyl (Dulcolax Supp) 10 mg PRN DAILY PRN [place] CONSTIPATION; Start 09/30/17 at 01:15 Trazodone HCl (Desyrel) 50 mg PRN QHS PRN PO INSOMNIA; Start 09/30/17 at 18:45 Lactobacillus Rhamnosus (Culturelle) 1 cap BID PO Last administered on at 20:16; Start 10/01/17 at 21:00 Haloperidol (Haldol) 1 mg BID PO Last administered on 10/02/17at 20:16; Start at 21:00; Stop 10/03/17 at 21:01 Duloxetine HCl (Cymbalta) 30 mg DAILY PO Last administered on 10/02/17at 09:11; Start 10/02/17 at 09:00; Stop 10/04/17 at 09:01 Duloxetine HCl (Cymbalta) 60 mg DAILY PO ; Start 10/05/17 at 09:00 Haloperidol (Haldol) 1 mg DAILY PO ; Start 10/04/17 at 09:00; Stop 10/05/17 at 09:01 Quetiapine Fumarate (SEROquel) 25 mg [id number] PO Last administered on 10/02/17at 20:17; Start 10/02/17 at 21:00 Active Scripts Active Reported Bactrim Ds Tablet (Sulfamethoxazole/Trimethoprim) 1 Each Tablet 1 Tab PO BID X3 DAYS Miralax (Polyethylene Glycol 3350) 17 Gm Powd.pack 17 Gm PO PRN DAILY PRN Milk Of Magnesia (Magnesium Hydroxide) 2,400 Mg/10 Ml Oral.susp 2,400 Mg PO PRN DAILY PRN Venlafaxine Hcl Er (Venlafaxine Hcl) 37.5 Mg Cap.er.24h 112.5 Mg PO HS Atorvastatin Calcium 10 Mg Tablet 5 Mg PO QHS Seroquel (Quetiapine Fumarate) 25 Mg Tablet 25 Mg PO TID AT 12/28/1999 Haloperidol 1 Mg Tablet 1 Mg PO TID AT 12/26/1699 Pantoprazole Sodium 40 Mg Tablet.dr 40 Mg PO BID Vitamin D3 (Cholecalciferol (Vitamin D3)) 1,000 Unit Tablet 1,000 Unit PO DAILY Therems-M (Multivits,Th W-Fe,Other Min) 1 Each Tablet 1 Tab PO DAILY Potassium Chloride 10 Meq Tablet.er 10 Meq PO DAILY Levothyroxine Sodium 75 Mcg Tablet 75 Mcg PO DAILYAC Phenobarbital 64.8 Mg Tablet 64.8 Mg PO HS Calcium Carbonate 500 Mg/5 Ml Oral.susp 5 Ml PO BID AT 0600, 1800 Magnesium Oxide 400 Mg Tablet 400 Mg PO TID AT 12/30/2099 Vimpat (Lacosamide) 150 Mg Tablet 150 Mg PO BID AT 0900, 1700 Tylenol (Acetaminophen) 325 Mg Tablet 650 Mg PO PRN Q6HRS PRN Tramadol Hcl (Tramadol HCl) 50 Mg Tablet 50 Mg PO PRN Q6HRS PRN Senna-S Tablet (Sennosides/Docusate Sodium) 1 Each Tablet 1 Tab PO PRN BID PRN Keppra (Levetiracetam) 250 Mg Tablet 750 Mg PO BID AT 0900, 1700 Ferrous Sulfate 325 Mg Tablet 325 Mg PO BIDAFTMEAL Bisacodyl 10 Mg Supp.rect 10 Mg RC PRN DAILY PRN Felbamate 400 Mg Tablet 800 Mg PO TID AT 12/26/1699 I have reviewed the current psychotropics carefully including drug interactions. Risk benefit ratio favors no change other than as noted in my dictated progress note. Diagnosis: Problems: (1) Functional diarrhea (2) urinary tract infection (3) Left hip arthroplasty (4) Severe major depression with psychotic features (5) Adjustment disorder with depressed mood (6) Bipolar affective, mixed (7) Impulse control disorder (8) Dementia, vascular, with delusions (9) Dementia, vascular, with depression HARVEY QUIJANO MD Oct 02, 2017 20:50
[2017-10-03 05:52] VITALS: BP 94/61
[2017-10-03] MEDS: LEVOTHYROXINE 75 MCG TABLET PO SCH (06:33)
[2017-10-03] MEDS: CALCIUM CARBONATE 500 MG TABLET PO SCH ×2 (06:33→17:08)
[2017-10-03] MEDS: PANTOPRAZOLE 40 MG TABLET. PO SCH ×2 (07:38→16:05)
[2017-10-03] MEDS: FERROUS SULFATE 325 MG TABLET. PO SCH ×2 (09:44→17:08)
[2017-10-03] MEDS: QUEtiapine 25 MG TABLET. PO SCH ×4 (09:44→20:45)
[2017-10-03] MEDS: LACTOBACILLUS RHAMNOSUS GG 1 CAPSULE. PO SCH ×2 (09:44→20:45)
[2017-10-03] MEDS: HALOPERIDOL 1 MG TABLET PO SCH ×2 (09:45→20:45)
[2017-10-03] MEDS: levETIRAcetam 250 MG TABLET PO SCH ×2 (09:46→17:09)
[2017-10-03] MEDS: CHOLECALCIFEROL (VITAMIN D3) 1,000 UNIT TABLET PO SCH (09:46)
[2017-10-03] MEDS: SMZ/TMP 800/160MG TABLET. PO SCH ×2 (09:46→20:45)
[2017-10-03] MEDS: DULoxetine HCL 30 MG CAPSULE.DR PO SCH (09:47)
[2017-10-03] MEDS: MAGNESIUM OXIDE 400 MG TABLET PO SCH ×3 (09:47→20:45)
[2017-10-03] MEDS: FELBAMATE 400 MG TABLET PO SCH ×3 (10:01→20:50)
[2017-10-03] MEDS: LACOSAMIDE 50 MG TABLET PO SCH ×2 (10:01→17:09)
[2017-10-03 16:04] VITALS: BP 109/76
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
[2017-10-03] MEDS: ATORVASTATIN CALCIUM 10 MG TABLET. PO SCH (20:45)
--- NOTE | 2017-10-03 20:48 | PDOC ---
Exam Note: David Note: Please also refer to the separate dictated note~for this date of service dictated separately.~Patient seen individually. Discussed the patient with Nursing staff reviewed the chart.~Reviewed interim history and current functioning. Reviewed vital signs,~Labs/ Radiology~and current medications noted below. Continue current treatment with the changes noted in the dictated addendum note Assessment: Vital Signs: Vital Signs Date Time Temp Pulse Resp B/P (MAP) Pulse Ox O2 Delivery O2 Flow Rate FiO2 10/03/17 16:04 98.0 76 16 109/76 (87) 97 09/30/17 16:16 Room Air 09/30/17 11:46 96.0 I&O Intake and Output 10/03/17 07:00 Intake Total 480 ml Balance 480 ml Intake Oral 480 ml Current Medications: Meds: Current Medications Acetaminophen (Tylenol) 650 mg PRN Q6HRS PRN PO PAIN / TEMP; Start 09/29/17 at 23:15 Multi-Ingredient Ointment (Analgesic [place]) 1 vale PRN QID PRN TP MUSCLE PAIN; Start 09/29/17 at 23:15 Al Hydroxide/Mg Hydroxide (Mylanta Plus Xs) 15 ml PRN AFTMEALHC PRN PO DYSPEPSIA; Start 09/29/17 at 23:15 Magnesium Hydroxide (Milk Of Magnesia) 2,400 mg PRN QHS PRN PO CONSTIPATION; Start 09/29/17 at 23:15 Non-Formulary Medication (Haloperidol ) 1 mg TID AT 12/26/1699 PO ; Start at 00:15; Stop 09/30/17 at 00:58; Status DC Non-Formulary Medication (Quetiapine Fumarate (Seroquel)) 25 mg TID AT 1999 PO ; Start 09/30/17 at 00:15; Stop 09/30/17 at 00:58; Status DC Non-Formulary Medication (Venlafaxine Hcl (Venlafaxine Hcl Er)) 112.5 mg HS PO ; Start 09/30/17 at 21:00; Stop 09/30/17 at 21:00; Status DC Vitamin D (Vitamin D3) 1,000 unit DAILY PO Last administered on 10/03/17at 09:46 ; Start 09/30/17 at 09:00 Felbamate (Felbatol) 800 mg TID PO Last administered on 10/03/17at 13:58; Start 09/30/17 at 09:00 Ferrous Sulfate (Feosol) 325 mg BIDAFTMEAL PO Last administered on 10/03/17at 17 :08; Start 09/30/17 at 09:00 Levothyroxine Sodium (Synthroid) 75 mcg DAILY06 PO Last administered on at 06:33; Start 09/30/17 at 06:00 Senna/Docusate Sodium (Senna Plus) 1 tab PRN BID PRN PO CONSTIPATION; Start at 00:15 Trimethoprim/ Sulfamethoxazole (Bactrim Ds) 1 tab BID PO Last administered on at 09:46; Start 09/30/17 at 09:00 Tramadol HCl (Ultram) 50 mg PRN Q6HRS PRN PO PAIN; Start 09/30/17 at 00:15 Non-Formulary Medication (Atorvastatin Calcium ) 5 mg QHS PO ; Start 09/30/17 at 21:00; Stop 09/30/17 at 21:00; Status DC Non-Formulary Medication (Bisacodyl ) 10 mg PRN DAILY PRN RC CONSTIPATION; Start 09/30/17 at 00:15; Stop 09/30/17 at 00:58; Status DC Non-Formulary Medication (Calcium Carbonate ) 5 ml BID AT 0600, 1800 PO ; Start 09/30/17 at 00:15; Stop 09/30/17 at 00:58; Status DC Non-Formulary Medication (Lacosamide (Vimpat)) 150 mg BID AT 0900, 1700 PO ; Start 09/30/17 at 00:15; Stop 09/30/17 at 00:58; Status DC Non-Formulary Medication (Levetiracetam (Keppra)) 750 mg BID AT 0900, 1700 PO ; Start 09/30/17 at 00:15; Stop 09/30/17 at 00:58; Status DC Non-Formulary Medication (Magnesium Oxide ) 400 mg TID AT 12/30/2099 PO ; Start 09/30/17 at 00:15; Stop 09/30/17 at 00:58; Status DC Non-Formulary Medication (Multivits,Th W-Fe,Other Min (Therems-M)) 1 tab DAILY PO ; Start 09/30/17 at 09:00; Stop 09/30/17 at 09:00; Status DC Non-Formulary Medication (Pantoprazole Sodium ) 40 mg BID PO ; Start 09/30/17 at 09:00; Stop 09/30/17 at 09:00; Status DC Non-Formulary Medication (Phenobarbital ) 64.8 mg HS PO ; Start 09/30/17 at 21: 00; Stop 09/30/17 at 21:00; Status DC Non-Formulary Medication (Polyethylene Glycol 3350 (Miralax)) 17 gm PRN DAILY PRN PO CONSTIPATION; Start 09/30/17 at 00:15; Stop 09/30/17 at 00:58; Status DC Non-Formulary Medication (Potassium Chloride ) 10 meq DAILY PO ; Start 09/30/17 at 09:00; Stop 09/30/17 at 09:00; Status DC Haloperidol (Haldol) 1 mg TIDPC PO Last administered on 10/01/17at 17:48; Start 09/30/17 at 08:30; Stop 10/01/17 at 18:14; Status DC Quetiapine Fumarate (SEROquel) 25 mg TID PO Last administered on 10/02/17at 12: 22; Start 09/30/17 at 09:00; Stop 10/02/17 at 18:09; Status DC Venlafaxine HCl (Effexor Xr) 112.5 mg DAILY PO Last administered on 10/01/17at 08:27; Start 09/30/17 at 09:00; Stop 10/01/17 at 18:14; Status DC Calcium Carbonate/ Glycine (Oscal) 1,250 mg BID66 PO Last administered on at 17:08; Start 09/30/17 at 06:00 Pantoprazole Sodium (Protonix) 40 mg BIDBFRMEAL PO Last administered on at 16:05; Start 09/30/17 at 07:30 Magnesium Oxide (Magnesium Oxide) 400 mg TID PO Last administered on 10/03/17at 13:58; Start 09/30/17 at 09:00 Atorvastatin Calcium (Lipitor) 5 mg QHS PO Last administered on 10/02/17at 20:17 ; Start 09/30/17 at 21:00 Lacosamide (Vimpat) 200 mg BIDAFTMEAL PO Last administered on 10/03/17 17:09; Start 09/30/17 at 09:00 Levetiracetam (Keppra) 750 mg BIDAFTMEAL PO Last administered on 10/03/17at 17: 09; Start 09/30/17 at 09:00 Phenobarbital (Luminal) 64.8 mg QHS PO Last administered on 10/02/17at 20:17; Start 09/30/17 at 21:00 Polyethylene Glycol (miraLAX) 17 gm PRN DAILY PRN PO CONSTIPATION; Start at 01:15 Bisacodyl (Dulcolax Supp) 10 mg PRN DAILY PRN [place] CONSTIPATION; Start 09/30/17 at 01:15 Trazodone HCl (Desyrel) 50 mg PRN QHS PRN PO INSOMNIA; Start 09/30/17 at 18:45 Lactobacillus Rhamnosus (Culturelle) 1 cap BID PO Last administered on at 09:44; Start 10/01/17 at 21:00 Haloperidol (Haldol) 1 mg BID PO Last administered on 10/03/17at 09:45; Start at 21:00; Stop 10/03/17 at 21:01 Duloxetine HCl (Cymbalta) 30 mg DAILY PO Last administered on 10/03/17at 09:47; Start 10/02/17 at 09:00; Stop 10/04/17 at 09:01 Duloxetine HCl (Cymbalta) 60 mg DAILY PO ; Start 10/05/17 at 09:00 Haloperidol (Haldol) 1 mg DAILY PO ; Start 10/04/17 at 09:00; Stop 10/05/17 at 09:01 Quetiapine Fumarate (SEROquel) 25 mg [id number] PO Last administered on 10/03/17at 17:08; Start 10/02/17 at 21:00 Active Scripts Active Reported Bactrim Ds Tablet (Sulfamethoxazole/Trimethoprim) 1 Each Tablet 1 Tab PO BID X3 DAYS Miralax (Polyethylene Glycol 3350) 17 Gm Powd.pack 17 Gm PO PRN DAILY PRN Milk Of Magnesia (Magnesium Hydroxide) 2,400 Mg/10 Ml Oral.susp 2,400 Mg PO PRN DAILY PRN Venlafaxine Hcl Er (Venlafaxine Hcl) 37.5 Mg Cap.er.24h 112.5 Mg PO HS Atorvastatin Calcium 10 Mg Tablet 5 Mg PO QHS Seroquel (Quetiapine Fumarate) 25 Mg Tablet 25 Mg PO TID AT 12/28/1999 Haloperidol 1 Mg Tablet 1 Mg PO TID AT 12/26/1699 Pantoprazole Sodium 40 Mg Tablet.dr 40 Mg PO BID Vitamin D3 (Cholecalciferol (Vitamin D3)) 1,000 Unit Tablet 1,000 Unit PO DAILY Therems-M (Multivits, W-Fe,Other Min) 1 Each Tablet 1 Tab PO DAILY Potassium Chloride 10 Meq Tablet.er 10 Meq PO DAILY Levothyroxine Sodium 75 Mcg Tablet 75 Mcg PO DAILYAC Phenobarbital 64.8 Mg Tablet 64.8 Mg PO HS Calcium Carbonate 500 Mg/5 Ml Oral.susp 5 Ml PO BID AT 0600, 1800 Magnesium Oxide 400 Mg Tablet 400 Mg PO TID AT 12/30/2099 Vimpat (Lacosamide) 150 Mg Tablet 150 Mg PO BID AT 0900, 1700 Tylenol (Acetaminophen) 325 Mg Tablet 650 Mg PO PRN Q6HRS PRN Tramadol Hcl (Tramadol HCl) 50 Mg Tablet 50 Mg PO PRN Q6HRS PRN Senna-S Tablet (Sennosides/Docusate Sodium) 1 Each Tablet 1 Tab PO PRN BID PRN Keppra (Levetiracetam) 250 Mg Tablet 750 Mg PO BID AT 0900, 1700 Ferrous Sulfate 325 Mg Tablet 325 Mg PO BIDAFTMEAL Bisacodyl 10 Mg Supp.rect 10 Mg RC PRN DAILY PRN Felbamate 400 Mg Tablet 800 Mg PO TID AT 12/26/1699 I have reviewed the current psychotropics carefully including drug interactions. Risk benefit ratio favors no change other than as noted in my dictated progress note. Diagnosis: Problems: (1) Functional diarrhea (2) urinary tract infection (3) Left hip arthroplasty (4) Severe major depression with psychotic features (5) Adjustment disorder with depressed mood (6) Bipolar affective, mixed (7) Impulse control disorder (8) Dementia, vascular, with delusions (9) Dementia, vascular, with depression HARVEY QUIJANO MD Oct 03, 2017 20:48
[2017-10-03] MEDS: PHENobarbital 32.4 MG TABLET. PO SCH (20:50)
[2017-10-04 05:46] VITALS: BP 94/54
[2017-10-04] MEDS: LEVOTHYROXINE 75 MCG TABLET PO SCH (06:00)
[2017-10-04] MEDS: CALCIUM CARBONATE 500 MG TABLET PO SCH ×2 (06:00→16:56)
[2017-10-04] MEDS: levETIRAcetam 250 MG TABLET PO SCH ×2 (08:30→16:55)
[2017-10-04] MEDS: LACTOBACILLUS RHAMNOSUS GG 1 CAPSULE. PO SCH ×2 (08:30→19:19)
[2017-10-04] MEDS: PANTOPRAZOLE 40 MG TABLET. PO SCH ×2 (08:30→16:55)
[2017-10-04] MEDS: CHOLECALCIFEROL (VITAMIN D3) 1,000 UNIT TABLET PO SCH (08:30)
[2017-10-04] MEDS: DULoxetine HCL 30 MG CAPSULE.DR PO SCH (08:31)
[2017-10-04] MEDS: QUEtiapine 25 MG TABLET. PO SCH ×4 (08:31→19:26)
[2017-10-04] MEDS: FELBAMATE 400 MG TABLET PO SCH ×3 (08:31→19:32)
[2017-10-04] MEDS: FERROUS SULFATE 325 MG TABLET. PO SCH ×2 (08:32→16:55)
[2017-10-04] MEDS: MAGNESIUM OXIDE 400 MG TABLET PO SCH ×3 (08:32→19:19)
[2017-10-04] MEDS: SMZ/TMP 800/160MG TABLET. PO SCH (08:32)
[2017-10-04] MEDS: HALOPERIDOL 1 MG TABLET PO SCH (08:34)
[2017-10-04] MEDS: LACOSAMIDE 50 MG TABLET PO SCH ×2 (08:36→16:55)
[2017-10-04 16:09] VITALS: BP 98/64
--- NOTE | 2017-10-04 18:34 | PN ---
DATE: 10/03/2017 PSYCHIATRIC PROGRESS NOTE This is a late entry, 10/03/2017, covers elements not covered in my initial note. SUBJECTIVE: I met with the patient in the evening. The patient slept 7-1/2 hours previous evening, was found limp in the morning, later seemed to recover. She does have a history of seizure disorder. We will request consultation with Dr. York for followup and check an EKG. Alert to herself, knew she was in the hospital, not sure where she was, resistive to medications, but takes it in Ensure, later took them whole. REVIEW OF SYSTEMS: No CV, , pulmonary, eye system symptoms on review. Gait is somewhat unsteady. MENTAL STATUS EXAM: Oriented to herself and situation. Speech moderate latency, often responses monosyllabic. Abstraction fair, computation impaired, language function intact, attention span short. Mood and affect remain somewhat labile. LABORATORY DATA: Labs reviewed. IMPRESSION: Major depressive disorder with psychotic features; major neurocognitive disorder, Alzheimer, vascular with delusion, depression, seizure disorder. PLAN: In addition to above, continue psychotropics from initial note. Treat the UTI. Adjust further as clinically indicated. MAN Luis QUIJANO MD DR: LOYD/eboni JOB#: [id number] / [id number]
[2017-10-04] MEDS: ATORVASTATIN CALCIUM 10 MG TABLET. PO SCH (19:19)
[2017-10-04] MEDS: PHENobarbital 32.4 MG TABLET. PO SCH (19:26)
--- NOTE | 2017-10-04 20:48 | PDOC ---
Exam Note: David Note: Please also refer to the separate dictated note~for this date of service dictated separately.~Patient seen individually. Discussed the patient with Nursing staff reviewed the chart.~Reviewed interim history and current functioning. Reviewed vital signs,~Labs/ Radiology~and current medications noted below. Continue current treatment with the changes noted in the dictated addendum note Assessment: Vital Signs: Vital Signs Date Time Temp Pulse Resp B/P (MAP) Pulse Ox O2 Delivery O2 Flow Rate FiO2 10/04/17 16:09 79 18 98/64 (75) 99 10/04/17 05:46 96.9 09/30/17 16:16 Room Air 09/30/17 11:46 96.0 I&O Intake and Output 10/04/17 07:00 Intake Total 660 ml Balance 660 ml Intake Oral 660 ml Current Medications: Meds: Current Medications Acetaminophen (Tylenol) 650 mg PRN Q6HRS PRN PO PAIN / TEMP; Start 09/29/17 at 23:15 Multi-Ingredient Ointment (Analgesic [place]) 1 vale PRN QID PRN TP MUSCLE PAIN; Start 09/29/17 at 23:15 Al Hydroxide/Mg Hydroxide (Mylanta Plus Xs) 15 ml PRN AFTMEALHC PRN PO DYSPEPSIA; Start 09/29/17 at 23:15 Magnesium Hydroxide (Milk Of Magnesia) 2,400 mg PRN QHS PRN PO CONSTIPATION; Start 09/29/17 at 23:15 Non-Formulary Medication (Haloperidol ) 1 mg TID AT 12/26/1699 PO ; Start at 00:15; Stop 09/30/17 at 00:58; Status DC Non-Formulary Medication (Quetiapine Fumarate (Seroquel)) 25 mg TID AT 1999 PO ; Start 09/30/17 at 00:15; Stop 09/30/17 at 00:58; Status DC Non-Formulary Medication (Venlafaxine Hcl (Venlafaxine Hcl Er)) 112.5 mg HS PO ; Start 09/30/17 at 21:00; Stop 09/30/17 at 21:00; Status DC Vitamin D (Vitamin D3) 1,000 unit DAILY PO Last administered on 10/04/17at 08:30 ; Start 09/30/17 at 09:00 Felbamate (Felbatol) 800 mg TID PO Last administered on 10/04/17at 19:32; Start 09/30/17 at 09:00 Ferrous Sulfate (Feosol) 325 mg BIDAFTMEAL PO Last administered on 10/04/17at 16 :55; Start 09/30/17 at 09:00 Levothyroxine Sodium (Synthroid) 75 mcg DAILY06 PO Last administered on at 06:33; Start 09/30/17 at 06:00 Senna/Docusate Sodium (Senna Plus) 1 tab PRN BID PRN PO CONSTIPATION; Start at 00:15 Trimethoprim/ Sulfamethoxazole (Bactrim Ds) 1 tab BID PO Last administered on at 08:32; Start 09/30/17 at 09:00; Stop 10/04/17 at 17:32; Status DC Tramadol HCl (Ultram) 50 mg PRN Q6HRS PRN PO PAIN; Start 09/30/17 at 00:15 Non-Formulary Medication (Atorvastatin Calcium ) 5 mg QHS PO ; Start 09/30/17 at 21:00; Stop 09/30/17 at 21:00; Status DC Non-Formulary Medication (Bisacodyl ) 10 mg PRN DAILY PRN RC CONSTIPATION; Start 09/30/17 at 00:15; Stop 09/30/17 at 00:58; Status DC Non-Formulary Medication (Calcium Carbonate ) 5 ml BID AT 0600, 1800 PO ; Start 09/30/17 at 00:15; Stop 09/30/17 at 00:58; Status DC Non-Formulary Medication (Lacosamide (Vimpat)) 150 mg BID AT 0900, 1700 PO ; Start 09/30/17 at 00:15; Stop 09/30/17 at 00:58; Status DC Non-Formulary Medication (Levetiracetam (Keppra)) 750 mg BID AT 0900, 1700 PO ; Start 09/30/17 at 00:15; Stop 09/30/17 at 00:58; Status DC Non-Formulary Medication (Magnesium Oxide ) 400 mg TID AT 12/30/2099 PO ; Start 09/30/17 at 00:15; Stop 09/30/17 at 00:58; Status DC Non-Formulary Medication (Multivits,Th W-Fe,Other Min (Therems-M)) 1 tab DAILY PO ; Start 09/30/17 at 09:00; Stop 09/30/17 at 09:00; Status DC Non-Formulary Medication (Pantoprazole Sodium ) 40 mg BID PO ; Start 09/30/17 at 09:00; Stop 09/30/17 at 09:00; Status DC Non-Formulary Medication (Phenobarbital ) 64.8 mg HS PO ; Start 09/30/17 at 21: 00; Stop 09/30/17 at 21:00; Status DC Non-Formulary Medication (Polyethylene Glycol 3350 (Miralax)) 17 gm PRN DAILY PRN PO CONSTIPATION; Start 09/30/17 at 00:15; Stop 09/30/17 at 00:58; Status DC Non-Formulary Medication (Potassium Chloride ) 10 meq DAILY PO ; Start 09/30/17 at 09:00; Stop 09/30/17 at 09:00; Status DC Haloperidol (Haldol) 1 mg TIDPC PO Last administered on 10/01/17at 17:48; Start 09/30/17 at 08:30; Stop 10/01/17 at 18:14; Status DC Quetiapine Fumarate (SEROquel) 25 mg TID PO Last administered on 10/02/17at 12: 22; Start 09/30/17 at 09:00; Stop 10/02/17 at 18:09; Status DC Venlafaxine HCl (Effexor Xr) 112.5 mg DAILY PO Last administered on 10/01/17at 08:27; Start 09/30/17 at 09:00; Stop 10/01/17 at 18:14; Status DC Calcium Carbonate/ Glycine (Oscal) 1,250 mg BID66 PO Last administered on at 16:56; Start 09/30/17 at 06:00 Pantoprazole Sodium (Protonix) 40 mg BIDBFRMEAL PO Last administered on at 16:55; Start 09/30/17 at 07:30 Magnesium Oxide (Magnesium Oxide) 400 mg TID PO Last administered on 10/04/17at 19:19; Start 09/30/17 at 09:00 Atorvastatin Calcium (Lipitor) 5 mg QHS PO Last administered on 10/04/17 19:19 ; Start 09/30/17 at 21:00 Lacosamide (Vimpat) 200 mg BIDAFTMEAL PO Last administered on 10/04/17 16:55; Start 09/30/17 at 09:00 Levetiracetam (Keppra) 750 mg BIDAFTMEAL PO Last administered on 10/04/17 16: 55; Start 09/30/17 at 09:00 Phenobarbital (Luminal) 64.8 mg QHS PO Last administered on 10/04/17 19:26; Start 09/30/17 at 21:00 Polyethylene Glycol (miraLAX) 17 gm PRN DAILY PRN PO CONSTIPATION; Start at 01:15 Bisacodyl (Dulcolax Supp) 10 mg PRN DAILY PRN [place] CONSTIPATION; Start 09/30/17 at 01:15 Trazodone HCl (Desyrel) 50 mg PRN QHS PRN PO INSOMNIA; Start 09/30/17 at 18:45 Lactobacillus Rhamnosus (Culturelle) 1 cap BID PO Last administered on 19:19; Start 10/01/17 at 21:00 Haloperidol (Haldol) 1 mg BID PO Last administered on 10/03/17at 20:45; Start at 21:00; Stop 10/03/17 at 21:01; Status DC Duloxetine HCl (Cymbalta) 30 mg DAILY PO Last administered on 10/04/17at 08:31; Start 10/02/17 at 09:00; Stop 10/04/17 at 09:01; Status DC Duloxetine HCl (Cymbalta) 60 mg DAILY PO ; Start 10/05/17 at 09:00 Haloperidol (Haldol) 1 mg DAILY PO Last administered on 10/04/17at 08:34; Start 10/04/17 at 09:00; Stop 10/05/17 at 09:01 Quetiapine Fumarate (SEROquel) 25 mg [id number] PO Last administered on 10/04/17 19:26; Start 10/02/17 at 21:00 Divalproex Sodium (Depakote Sprinkles) 250 mg BID94 PO ; Start 10/05/17 at 09:00 Active Scripts Active Reported Bactrim Ds Tablet (Sulfamethoxazole/Trimethoprim) 1 Each Tablet 1 Tab PO BID X3 DAYS Miralax (Polyethylene Glycol 3350) 17 Gm Powd.pack 17 Gm PO PRN DAILY PRN Milk Of Magnesia (Magnesium Hydroxide) 2,400 Mg/10 Ml Oral.susp 2,400 Mg PO PRN DAILY PRN Venlafaxine Hcl Er (Venlafaxine Hcl) 37.5 Mg Cap.er.24h 112.5 Mg PO HS Atorvastatin Calcium 10 Mg Tablet 5 Mg PO QHS Seroquel (Quetiapine Fumarate) 25 Mg Tablet 25 Mg PO TID AT 12/28/1999 Haloperidol 1 Mg Tablet 1 Mg PO TID AT 12/26/1699 Pantoprazole Sodium 40 Mg Tablet.dr 40 Mg PO BID Vitamin D3 (Cholecalciferol (Vitamin D3)) 1,000 Unit Tablet 1,000 Unit PO DAILY Therems-M (Multivits, W-,Other Min) 1 Each Tablet 1 Tab PO DAILY Potassium Chloride 10 Meq Tablet.er 10 Meq PO DAILY Levothyroxine Sodium 75 Mcg Tablet 75 Mcg PO DAILYAC Phenobarbital 64.8 Mg Tablet 64.8 Mg PO HS Calcium Carbonate 500 Mg/5 Ml Oral.susp 5 Ml PO BID AT 0600, 1800 Magnesium Oxide 400 Mg Tablet 400 Mg PO TID AT 12/30/2099 Vimpat (Lacosamide) 150 Mg Tablet 150 Mg PO BID AT 0900, 1700 Tylenol (Acetaminophen) 325 Mg Tablet 650 Mg PO PRN Q6HRS PRN Tramadol Hcl (Tramadol HCl) 50 Mg Tablet 50 Mg PO PRN Q6HRS PRN Senna-S Tablet (Sennosides/Docusate Sodium) 1 Each Tablet 1 Tab PO PRN BID PRN Keppra (Levetiracetam) 250 Mg Tablet 750 Mg PO BID AT 0900, 1700 Ferrous Sulfate 325 Mg Tablet 325 Mg PO BIDAFTMEAL Bisacodyl 10 Mg Supp.rect 10 Mg RC PRN DAILY PRN Felbamate 400 Mg Tablet 800 Mg PO TID AT 12/26/1699 I have reviewed the current psychotropics carefully including drug interactions. Risk benefit ratio favors no change other than as noted in my dictated progress note. Diagnosis: Problems: (1) Functional diarrhea (2) urinary tract infection (3) Left hip arthroplasty (4) Severe major depression with psychotic features (5) Adjustment disorder with depressed mood (6) Bipolar affective, mixed (7) Impulse control disorder (8) Dementia, vascular, with delusions (9) Dementia, vascular, with depression HARVEY QUIJANO MD Oct 04, 2017 20:48
[2017-10-05 05:49] VITALS: BP 110/62
[2017-10-05] MEDS: CALCIUM CARBONATE 500 MG TABLET PO SCH ×3 (06:09→19:30)
[2017-10-05] MEDS: LEVOTHYROXINE 75 MCG TABLET PO SCH (06:09)
[2017-10-05] MEDS: FELBAMATE 400 MG TABLET PO SCH ×3 (08:57→19:34)
[2017-10-05] MEDS: PANTOPRAZOLE 40 MG TABLET. PO SCH ×2 (08:57→17:30)
[2017-10-05] MEDS: CHOLECALCIFEROL (VITAMIN D3) 1,000 UNIT TABLET PO SCH (08:57)
[2017-10-05] MEDS: QUEtiapine 25 MG TABLET. PO SCH ×4 (08:57→19:32)
[2017-10-05] MEDS: HALOPERIDOL 1 MG TABLET PO SCH (08:57)
[2017-10-05] MEDS: FERROUS SULFATE 325 MG TABLET. PO SCH ×2 (08:58→17:30)
[2017-10-05] MEDS: MAGNESIUM OXIDE 400 MG TABLET PO SCH ×3 (08:58→19:37)
[2017-10-05] MEDS: levETIRAcetam 250 MG TABLET PO SCH ×2 (08:58→17:30)
[2017-10-05] MEDS: LACTOBACILLUS RHAMNOSUS GG 1 CAPSULE. PO SCH ×2 (08:58→19:30)
[2017-10-05] MEDS: LACOSAMIDE 50 MG TABLET PO SCH ×2 (08:59→17:29)
[2017-10-05] MEDS: DULoxetine HCL 60 MG CAPSULE.DR PO SCH (08:59)
[2017-10-05] MEDS: DIVALPROEX 125 MG CAP.SPRINK PO SCH ×2 (08:59→17:29)
[2017-10-05 16:01] VITALS: BP 103/52
[2017-10-05] MEDS: ATORVASTATIN CALCIUM 10 MG TABLET. PO SCH (19:32)
[2017-10-05] MEDS: PHENobarbital 32.4 MG TABLET. PO SCH (19:37)
--- NOTE | 2017-10-05 22:47 | PDOC ---
Exam Note: David Note: Please also refer to the separate dictated note~for this date of service dictated separately.~Patient seen individually. Discussed the patient with Nursing staff reviewed the chart.~Reviewed interim history and current functioning. Reviewed vital signs,~Labs/ Radiology~and current medications noted below. Continue current treatment with the changes noted in the dictated addendum note Assessment: Vital Signs: Vital Signs Date Time Temp Pulse Resp B/P (MAP) Pulse Ox O2 Delivery O2 Flow Rate FiO2 10/05/17 16:01 98.5 84 18 103/52 (69) 98 09/30/17 16:16 Room Air 09/30/17 11:46 96.0 I&O Intake and Output 10/05/17 07:00 Intake Total 840 ml Balance 840 ml Intake Oral 840 ml # Bowel Movements 1 Current Medications: Meds: Current Medications Acetaminophen (Tylenol) 650 mg PRN Q6HRS PRN PO PAIN / TEMP; Start 09/29/17 at 23:15 Multi-Ingredient Ointment (Analgesic [place]) 1 vale PRN QID PRN TP MUSCLE PAIN; Start 09/29/17 at 23:15 Al Hydroxide/Mg Hydroxide (Mylanta Plus Xs) 15 ml PRN AFTMEALHC PRN PO DYSPEPSIA; Start 09/29/17 at 23:15 Magnesium Hydroxide (Milk Of Magnesia) 2,400 mg PRN QHS PRN PO CONSTIPATION; Start 09/29/17 at 23:15 Non-Formulary Medication (Haloperidol ) 1 mg TID AT 12/26/1699 PO ; Start at 00:15; Stop 09/30/17 at 00:58; Status DC Non-Formulary Medication (Quetiapine Fumarate (Seroquel)) 25 mg TID AT 1999 PO ; Start 09/30/17 at 00:15; Stop 09/30/17 at 00:58; Status DC Non-Formulary Medication (Venlafaxine Hcl (Venlafaxine Hcl Er)) 112.5 mg HS PO ; Start 09/30/17 at 21:00; Stop 09/30/17 at 21:00; Status DC Vitamin D (Vitamin D3) 1,000 unit DAILY PO Last administered on 10/05/17at 08:57 ; Start 09/30/17 at 09:00 Felbamate (Felbatol) 800 mg TID PO Last administered on 10/05/17at 19:34; Start 09/30/17 at 09:00 Ferrous Sulfate (Feosol) 325 mg BIDAFTMEAL PO Last administered on 10/05/17at 17 :30; Start 09/30/17 at 09:00 Levothyroxine Sodium (Synthroid) 75 mcg DAILY06 PO Last administered on at 06:09; Start 09/30/17 at 06:00 Senna/Docusate Sodium (Senna Plus) 1 tab PRN BID PRN PO CONSTIPATION; Start at 00:15 Trimethoprim/ Sulfamethoxazole (Bactrim Ds) 1 tab BID PO Last administered on at 08:32; Start 09/30/17 at 09:00; Stop 10/04/17 at 17:32; Status DC Tramadol HCl (Ultram) 50 mg PRN Q6HRS PRN PO PAIN; Start 09/30/17 at 00:15 Non-Formulary Medication (Atorvastatin Calcium ) 5 mg QHS PO ; Start 09/30/17 at 21:00; Stop 09/30/17 at 21:00; Status DC Non-Formulary Medication (Bisacodyl ) 10 mg PRN DAILY PRN RC CONSTIPATION; Start 09/30/17 at 00:15; Stop 09/30/17 at 00:58; Status DC Non-Formulary Medication (Calcium Carbonate ) 5 ml BID AT 0600, 1800 PO ; Start 09/30/17 at 00:15; Stop 09/30/17 at 00:58; Status DC Non-Formulary Medication (Lacosamide (Vimpat)) 150 mg BID AT 0900, 1700 PO ; Start 09/30/17 at 00:15; Stop 09/30/17 at 00:58; Status DC Non-Formulary Medication (Levetiracetam (Keppra)) 750 mg BID AT 0900, 1700 PO ; Start 09/30/17 at 00:15; Stop 09/30/17 at 00:58; Status DC Non-Formulary Medication (Magnesium Oxide ) 400 mg TID AT 12/30/2099 PO ; Start 09/30/17 at 00:15; Stop 09/30/17 at 00:58; Status DC Non-Formulary Medication (Multivits,Th W-Fe,Other Min (Therems-M)) 1 tab DAILY PO ; Start 09/30/17 at 09:00; Stop 09/30/17 at 09:00; Status DC Non-Formulary Medication (Pantoprazole Sodium ) 40 mg BID PO ; Start 09/30/17 at 09:00; Stop 09/30/17 at 09:00; Status DC Non-Formulary Medication (Phenobarbital ) 64.8 mg HS PO ; Start 09/30/17 at 21: 00; Stop 09/30/17 at 21:00; Status DC Non-Formulary Medication (Polyethylene Glycol 3350 (Miralax)) 17 gm PRN DAILY PRN PO CONSTIPATION; Start 09/30/17 at 00:15; Stop 09/30/17 at 00:58; Status DC Non-Formulary Medication (Potassium Chloride ) 10 meq DAILY PO ; Start 09/30/17 at 09:00; Stop 09/30/17 at 09:00; Status DC Haloperidol (Haldol) 1 mg TIDPC PO Last administered on 10/01/17at 17:48; Start 09/30/17 at 08:30; Stop 10/01/17 at 18:14; Status DC Quetiapine Fumarate (SEROquel) 25 mg TID PO Last administered on 10/02/17at 12: 22; Start 09/30/17 at 09:00; Stop 10/02/17 at 18:09; Status DC Venlafaxine HCl (Effexor Xr) 112.5 mg DAILY PO Last administered on 10/01/17at 08:27; Start 09/30/17 at 09:00; Stop 10/01/17 at 18:14; Status DC Calcium Carbonate/ Glycine (Oscal) 1,250 mg [id number] PO Last administered on 19:30; Start 09/30/17 at 06:00 Pantoprazole Sodium (Protonix) 40 mg BIDBFRMEAL PO Last administered on 17:30; Start 09/30/17 at 07:30 Magnesium Oxide (Magnesium Oxide) 400 mg TID PO Last administered on 10/05/17 19:37; Start 09/30/17 at 09:00 Atorvastatin Calcium (Lipitor) 5 mg QHS PO Last administered on 10/05/17 19:32 ; Start 09/30/17 at 21:00 Lacosamide (Vimpat) 200 mg BIDAFTMEAL PO Last administered on 10/05/17 17:29; Start 09/30/17 at 09:00 Levetiracetam (Keppra) 750 mg BIDAFTMEAL PO Last administered on 10/05/17 17: 30; Start 09/30/17 at 09:00 Phenobarbital (Luminal) 64.8 mg QHS PO Last administered on 10/05/17 19:37; Start 09/30/17 at 21:00 Polyethylene Glycol (miraLAX) 17 gm PRN DAILY PRN PO CONSTIPATION; Start at 01:15 Bisacodyl (Dulcolax Supp) 10 mg PRN DAILY PRN [place] CONSTIPATION; Start 09/30/17 at 01:15 Trazodone HCl (Desyrel) 50 mg PRN QHS PRN PO INSOMNIA; Start 09/30/17 at 18:45 Lactobacillus Rhamnosus (Culturelle) 1 cap BID PO Last administered on 19:30; Start 10/01/17 at 21:00 Haloperidol (Haldol) 1 mg BID PO Last administered on 10/03/17 20:45; Start at 21:00; Stop 10/03/17 at 21:01; Status DC Duloxetine HCl (Cymbalta) 30 mg DAILY PO Last administered on 10/04/17 08:31; Start 10/02/17 at 09:00; Stop 10/04/17 at 09:01; Status DC Duloxetine HCl (Cymbalta) 60 mg DAILY PO Last administered on 10/05/17 08:59; Start 10/05/17 at 09:00 Haloperidol (Haldol) 1 mg DAILY PO Last administered on 10/05/17 08:57; Start 10/04/17 at 09:00; Stop 10/05/17 at 09:02; Status DC Quetiapine Fumarate (SEROquel) 25 mg [id number] PO Last administered on 10/05/17 19:32; Start 10/02/17 at 21:00 Divalproex Sodium (Depakote Sprinkles) 250 mg [id number] PO Last administered on 6/ 23/18at 17:29; Start 10/05/17 at 09:00 Active Scripts Active Reported Bactrim Ds Tablet (Sulfamethoxazole/Trimethoprim) 1 Each Tablet 1 Tab PO BID X3 DAYS Miralax (Polyethylene Glycol 3350) 17 Gm Powd.pack 17 Gm PO PRN DAILY PRN Milk Of Magnesia (Magnesium Hydroxide) 2,400 Mg/10 Ml Oral.susp 2,400 Mg PO PRN DAILY PRN Venlafaxine Hcl Er (Venlafaxine Hcl) 37.5 Mg Cap.er.24h 112.5 Mg PO HS Atorvastatin Calcium 10 Mg Tablet 5 Mg PO QHS Seroquel (Quetiapine Fumarate) 25 Mg Tablet 25 Mg PO TID AT 12/28/1999 Haloperidol 1 Mg Tablet 1 Mg PO TID AT 12/26/1699 Pantoprazole Sodium 40 Mg Tablet.dr 40 Mg PO BID Vitamin D3 (Cholecalciferol (Vitamin D3)) 1,000 Unit Tablet 1,000 Unit PO DAILY Therems-M (Multivits, W-Fe,Other Min) 1 Each Tablet 1 Tab PO DAILY Potassium Chloride 10 Meq Tablet.er 10 Meq PO DAILY Levothyroxine Sodium 75 Mcg Tablet 75 Mcg PO DAILYAC Phenobarbital 64.8 Mg Tablet 64.8 Mg PO HS Calcium Carbonate 500 Mg/5 Ml Oral.susp 5 Ml PO BID AT 0600, 1800 Magnesium Oxide 400 Mg Tablet 400 Mg PO TID AT 12/30/2099 Vimpat (Lacosamide) 150 Mg Tablet 150 Mg PO BID AT 0900, 1700 Tylenol (Acetaminophen) 325 Mg Tablet 650 Mg PO PRN Q6HRS PRN Tramadol Hcl (Tramadol HCl) 50 Mg Tablet 50 Mg PO PRN Q6HRS PRN Senna-S Tablet (Sennosides/Docusate Sodium) 1 Each Tablet 1 Tab PO PRN BID PRN Keppra (Levetiracetam) 250 Mg Tablet 750 Mg PO BID AT 0900, 1700 Ferrous Sulfate 325 Mg Tablet 325 Mg PO BIDAFTMEAL Bisacodyl 10 Mg Supp.rect 10 Mg RC PRN DAILY PRN Felbamate 400 Mg Tablet 800 Mg PO TID AT 12/26/1699 I have reviewed the current psychotropics carefully including drug interactions. Risk benefit ratio favors no change other than as noted in my dictated progress note. Diagnosis: Problems: (1) Severe major depression with psychotic features (2) Adjustment disorder with depressed mood (3) Bipolar affective, mixed (4) Impulse control disorder (5) Dementia, vascular, with delusions (6) Dementia, vascular, with depression HARVEY QUIJANO MD Oct 05, 2017 22:47
--- NOTE | 2017-10-06 00:38 | PN ---
DATE: SUBJECTIVE: The patient denies any new medical or neurological complaints. She has not had any seizures since admission. The patient sometimes becomes more agitated and refused taking her medications. She also refused to walk with assistance. Currently, she denies headaches, visual disturbances, nausea, vomiting, chest pain, shortness of breath, palpitation, dysarthria, dysphagia. OBJECTIVE: GENERAL: Well-developed, well-nourished white female, not in acute distress. VITAL SIGNS: Blood pressure 110/62, respiratory rate 20, pulse is 95 regular, temperature 97.6, oxygen saturation is 93% on room air. HEENT: Normocephalic, atraumatic, otherwise unremarkable. NECK: Supple. Negative for carotid bruit, lymphadenopathy or thyromegaly. LUNGS: Clear to A and P. CARDIOVASCULAR: Regular rate and rhythm, normal S1, S2. ABDOMEN: Soft. Bowel sounds positive. EXTREMITIES: Negative for cyanosis, clubbing or pitting edema. NEUROLOGICAL EXAM: Mental Status: The patient is alert and she follows 1-step simple commands. She started talking somewhat, but she could not finish sentences, otherwise unremarkable. Cranial nerves are intact. Motor: No focal muscle bulk was seen. The tone is normal. The strength is 4/5 throughout. Sensory examination revealed normal pinprick and light touch senses throughout. Deep tendon reflexes were symmetric and hypoactive with absent Achilles responses. Gait: The patient is able to stand and walk few steps with assistance. LABORATORY DATA: Initial nonenhanced CT scan revealed no evidence of subdural hematoma at this time, but it showed small vessel ischemic changes along ____ with left basal ganglia, small lacunar infarct, otherwise consistent with generalized atrophy. IMPRESSION: 1. Seizure disorder - stable on current anticonvulsants. 2. Continue with psychiatric care. 3. Physical therapy evaluation. M Fabi MONTIEL MD DR: MURALI/eboni JOB#: [id number] / [id number]
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
[2017-10-06] MEDS: LEVOTHYROXINE 75 MCG TABLET PO SCH (06:08)
[2017-10-06 06:22] VITALS: BP 100/63
[2017-10-06] MEDS: levETIRAcetam 250 MG TABLET PO SCH ×2 (07:42→16:24)
[2017-10-06] MEDS: FERROUS SULFATE 325 MG TABLET. PO SCH ×2 (07:42→16:23)
[2017-10-06] MEDS: DIVALPROEX 125 MG CAP.SPRINK PO SCH ×2 (07:42→16:24)
[2017-10-06] MEDS: CHOLECALCIFEROL (VITAMIN D3) 1,000 UNIT TABLET PO SCH (07:42)
[2017-10-06] MEDS: FELBAMATE 400 MG TABLET PO SCH ×3 (07:42→19:46)
[2017-10-06] MEDS: DULoxetine HCL 60 MG CAPSULE.DR PO SCH (07:42)
[2017-10-06] MEDS: QUEtiapine 25 MG TABLET. PO SCH ×4 (07:42→19:42)
[2017-10-06] MEDS: MAGNESIUM OXIDE 400 MG TABLET PO SCH ×3 (07:42→19:42)
[2017-10-06] MEDS: LACTOBACILLUS RHAMNOSUS GG 1 CAPSULE. PO SCH ×2 (07:42→19:42)
[2017-10-06] MEDS: PANTOPRAZOLE 40 MG TABLET. PO SCH ×2 (07:42→16:23)
[2017-10-06] MEDS: LACOSAMIDE 50 MG TABLET PO SCH ×2 (07:44→16:24)
[2017-10-06 16:13] VITALS: BP 96/58
[2017-10-06] MEDS: CALCIUM CARBONATE 500 MG TABLET PO SCH (16:24)
--- NOTE | 2017-10-06 17:58 | PN ---
DATE: 10/04/2017 This is a late entry for 10/04/2017 and covers the elements not covered in my initial note. SUBJECTIVE: I met with the patient in the evening. Overall, the patient was quite agitated, restless, had to be placed in the West hallway to remove her from external stimuli. She slept 7-1/2 hours. REVIEW OF SYSTEMS: No CV, , pulmonary, eye, ENT system symptoms on review. MENTAL STATUS EXAM: Oriented to herself and situation. Speech is moderate latency, often responses monosyllabic. Abstraction fair, computation impaired, language function intact. Mood and affect remains somewhat labile. LABORATORY DATA: Reviewed. IMPRESSION: Unchanged from initial note including urinary tract infection. PLAN: Treat the UTI. Start Depakote 250 mg twice a day. Check CBC, CMP, valproic acid level in 3 days. Rest unchanged from initial note. MAN Luis QUIJANO MD DR: LOYD/eboni JOB#: [id number] / [id number]
[2017-10-06] MEDS: PHENobarbital 32.4 MG TABLET. PO SCH (19:42)
[2017-10-06] MEDS: ATORVASTATIN CALCIUM 10 MG TABLET. PO SCH (19:42)
--- NOTE | 2017-10-06 20:55 | PDOC ---
Exam Note: David Note: Please also refer to the separate dictated note~for this date of service dictated separately.~Patient seen individually. Discussed the patient with Nursing staff reviewed the chart.~Reviewed interim history and current functioning. Reviewed vital signs,~Labs/ Radiology~and current medications noted below. Continue current treatment with the changes noted in the dictated addendum note Assessment: Vital Signs: Vital Signs Date Time Temp Pulse Resp B/P (MAP) Pulse Ox O2 Delivery O2 Flow Rate FiO2 10/06/17 16:13 97.6 80 20 96/58 (71) 97 09/30/17 16:16 Room Air 09/30/17 11:46 96.0 I&O Intake and Output 10/06/17 07:00 Intake Total 1200 ml Balance 1200 ml Intake Oral 1200 ml Current Medications: Meds: Current Medications Acetaminophen (Tylenol) 650 mg PRN Q6HRS PRN PO PAIN / TEMP; Start 09/29/17 at 23:15 Multi-Ingredient Ointment (Analgesic [place]) 1 vale PRN QID PRN TP MUSCLE PAIN; Start 09/29/17 at 23:15 Al Hydroxide/Mg Hydroxide (Mylanta Plus Xs) 15 ml PRN AFTMEALHC PRN PO DYSPEPSIA; Start 09/29/17 at 23:15 Magnesium Hydroxide (Milk Of Magnesia) 2,400 mg PRN QHS PRN PO CONSTIPATION; Start 09/29/17 at 23:15 Non-Formulary Medication (Haloperidol ) 1 mg TID AT 12/26/1699 PO ; Start at 00:15; Stop 09/30/17 at 00:58; Status DC Non-Formulary Medication (Quetiapine Fumarate (Seroquel)) 25 mg TID AT 1999 PO ; Start 09/30/17 at 00:15; Stop 09/30/17 at 00:58; Status DC Non-Formulary Medication (Venlafaxine Hcl (Venlafaxine Hcl Er)) 112.5 mg HS PO ; Start 09/30/17 at 21:00; Stop 09/30/17 at 21:00; Status DC Vitamin D (Vitamin D3) 1,000 unit DAILY PO Last administered on 10/06/17at 07:42 ; Start 09/30/17 at 09:00 Felbamate (Felbatol) 800 mg TID PO Last administered on 10/06/17 19:46; Start 09/30/17 at 09:00 Ferrous Sulfate (Feosol) 325 mg BIDAFTMEAL PO Last administered on 10/06/17 16 :23; Start 09/30/17 at 09:00 Levothyroxine Sodium (Synthroid) 75 mcg DAILY06 PO Last administered on at 06:08; Start 09/30/17 at 06:00 Senna/Docusate Sodium (Senna Plus) 1 tab PRN BID PRN PO CONSTIPATION; Start at 00:15 Trimethoprim/ Sulfamethoxazole (Bactrim Ds) 1 tab BID PO Last administered on at 08:32; Start 09/30/17 at 09:00; Stop 10/04/17 at 17:32; Status DC Tramadol HCl (Ultram) 50 mg PRN Q6HRS PRN PO PAIN; Start 09/30/17 at 00:15 Non-Formulary Medication (Atorvastatin Calcium ) 5 mg QHS PO ; Start 09/30/17 at 21:00; Stop 09/30/17 at 21:00; Status DC Non-Formulary Medication (Bisacodyl ) 10 mg PRN DAILY PRN RC CONSTIPATION; Start 09/30/17 at 00:15; Stop 09/30/17 at 00:58; Status DC Non-Formulary Medication (Calcium Carbonate ) 5 ml BID AT 0600, 1800 PO ; Start 09/30/17 at 00:15; Stop 09/30/17 at 00:58; Status DC Non-Formulary Medication (Lacosamide (Vimpat)) 150 mg BID AT 0900, 1700 PO ; Start 09/30/17 at 00:15; Stop 09/30/17 at 00:58; Status DC Non-Formulary Medication (Levetiracetam (Keppra)) 750 mg BID AT 0900, 1700 PO ; Start 09/30/17 at 00:15; Stop 09/30/17 at 00:58; Status DC Non-Formulary Medication (Magnesium Oxide ) 400 mg TID AT 12/30/2099 PO ; Start 09/30/17 at 00:15; Stop 09/30/17 at 00:58; Status DC Non-Formulary Medication (Multivits,Th W-Fe,Other Min (Therems-M)) 1 tab DAILY PO ; Start 09/30/17 at 09:00; Stop 09/30/17 at 09:00; Status DC Non-Formulary Medication (Pantoprazole Sodium ) 40 mg BID PO ; Start 09/30/17 at 09:00; Stop 09/30/17 at 09:00; Status DC Non-Formulary Medication (Phenobarbital ) 64.8 mg HS PO ; Start 09/30/17 at 21: 00; Stop 09/30/17 at 21:00; Status DC Non-Formulary Medication (Polyethylene Glycol 3350 (Miralax)) 17 gm PRN DAILY PRN PO CONSTIPATION; Start 09/30/17 at 00:15; Stop 09/30/17 at 00:58; Status DC Non-Formulary Medication (Potassium Chloride ) 10 meq DAILY PO ; Start 09/30/17 at 09:00; Stop 09/30/17 at 09:00; Status DC Haloperidol (Haldol) 1 mg TIDPC PO Last administered on 10/01/17at 17:48; Start 09/30/17 at 08:30; Stop 10/01/17 at 18:14; Status DC Quetiapine Fumarate (SEROquel) 25 mg TID PO Last administered on 10/02/17at 12: 22; Start 09/30/17 at 09:00; Stop 10/02/17 at 18:09; Status DC Venlafaxine HCl (Effexor Xr) 112.5 mg DAILY PO Last administered on 10/01/17at 08:27; Start 09/30/17 at 09:00; Stop 10/01/17 at 18:14; Status DC Calcium Carbonate/ Glycine (Oscal) 1,250 mg BID66 PO Last administered on 16:24; Start 09/30/17 at 06:00 Pantoprazole Sodium (Protonix) 40 mg BIDBFRMEAL PO Last administered on 16:23; Start 09/30/17 at 07:30 Magnesium Oxide (Magnesium Oxide) 400 mg TID PO Last administered on 10/06/17 19:42; Start 09/30/17 at 09:00 Atorvastatin Calcium (Lipitor) 5 mg QHS PO Last administered on 10/06/17 19:42 ; Start 09/30/17 at 21:00 Lacosamide (Vimpat) 200 mg BIDAFTMEAL PO Last administered on 10/06/17 16:24; Start 09/30/17 at 09:00 Levetiracetam (Keppra) 750 mg BIDAFTMEAL PO Last administered on 10/06/17 16: 24; Start 09/30/17 at 09:00 Phenobarbital (Luminal) 64.8 mg QHS PO Last administered on 10/06/17 19:42; Start 09/30/17 at 21:00 Polyethylene Glycol (miraLAX) 17 gm PRN DAILY PRN PO CONSTIPATION; Start at 01:15 Bisacodyl (Dulcolax Supp) 10 mg PRN DAILY PRN [place] CONSTIPATION; Start 09/30/17 at 01:15 Trazodone HCl (Desyrel) 50 mg PRN QHS PRN PO INSOMNIA; Start 09/30/17 at 18:45 Lactobacillus Rhamnosus (Culturelle) 1 cap BID PO Last administered on 19:42; Start 10/01/17 at 21:00 Haloperidol (Haldol) 1 mg BID PO Last administered on 10/03/17 20:45; Start at 21:00; Stop 10/03/17 at 21:01; Status DC Duloxetine HCl (Cymbalta) 30 mg DAILY PO Last administered on 10/04/17 08:31; Start 10/02/17 at 09:00; Stop 10/04/17 at 09:01; Status DC Duloxetine HCl (Cymbalta) 60 mg DAILY PO Last administered on 10/06/17 07:42; Start 10/05/17 at 09:00 Haloperidol (Haldol) 1 mg DAILY PO Last administered on 10/05/17 08:57; Start 10/04/17 at 09:00; Stop 10/05/17 at 09:02; Status DC Quetiapine Fumarate (SEROquel) 25 mg [id number] PO Last administered on 10/06/17 19:42; Start 10/02/17 at 21:00 Divalproex Sodium (Depakote Sprinkles) 250 mg [id number] PO Last administered on 16:24; Start 10/05/17 at 09:00 Active Scripts Active Reported Bactrim Ds Tablet (Sulfamethoxazole/Trimethoprim) 1 Each Tablet 1 Tab PO BID X3 DAYS Miralax (Polyethylene Glycol 3350) 17 Gm Powd.pack 17 Gm PO PRN DAILY PRN Milk Of Magnesia (Magnesium Hydroxide) 2,400 Mg/10 Ml Oral.susp 2,400 Mg PO PRN DAILY PRN Venlafaxine Hcl Er (Venlafaxine Hcl) 37.5 Mg Cap.er.24h 112.5 Mg PO HS Atorvastatin Calcium 10 Mg Tablet 5 Mg PO QHS Seroquel (Quetiapine Fumarate) 25 Mg Tablet 25 Mg PO TID AT 12/28/1999 Haloperidol 1 Mg Tablet 1 Mg PO TID AT 12/26/1699 Pantoprazole Sodium 40 Mg Tablet.dr 40 Mg PO BID Vitamin D3 (Cholecalciferol (Vitamin D3)) 1,000 Unit Tablet 1,000 Unit PO DAILY Therems-M (Multivits, W-Fe,Other Min) 1 Each Tablet 1 Tab PO DAILY Potassium Chloride 10 Meq Tablet.er 10 Meq PO DAILY Levothyroxine Sodium 75 Mcg Tablet 75 Mcg PO DAILYAC Phenobarbital 64.8 Mg Tablet 64.8 Mg PO HS Calcium Carbonate 500 Mg/5 Ml Oral.susp 5 Ml PO BID AT 0600, 1800 Magnesium Oxide 400 Mg Tablet 400 Mg PO TID AT 12/30/2099 Vimpat (Lacosamide) 150 Mg Tablet 150 Mg PO BID AT 0900, 1700 Tylenol (Acetaminophen) 325 Mg Tablet 650 Mg PO PRN Q6HRS PRN Tramadol Hcl (Tramadol HCl) 50 Mg Tablet 50 Mg PO PRN Q6HRS PRN Senna-S Tablet (Sennosides/Docusate Sodium) 1 Each Tablet 1 Tab PO PRN BID PRN Keppra (Levetiracetam) 250 Mg Tablet 750 Mg PO BID AT 0900, 1700 Ferrous Sulfate 325 Mg Tablet 325 Mg PO BIDAFTMEAL Bisacodyl 10 Mg Supp.rect 10 Mg RC PRN DAILY PRN Felbamate 400 Mg Tablet 800 Mg PO TID AT 12/26/1699 I have reviewed the current psychotropics carefully including drug interactions. Risk benefit ratio favors no change other than as noted in my dictated progress note. Diagnosis: Problems: (1) Functional diarrhea (2) urinary tract infection (3) Left hip arthroplasty (4) Severe major depression with psychotic features (5) Adjustment disorder with depressed mood (6) Bipolar affective, mixed (7) Impulse control disorder (8) Dementia, vascular, with delusions (9) Dementia, vascular, with depression HARVEY QUIJANO MD Oct 06, 2017 20:55
--- NOTE | 2017-10-06 22:46 | PN ---
DATE: 10/05/2017 This late entry 10/05/2017 covers elements not covered in my initial note. SUBJECTIVE: Met with the patient in the evening. She has been less irritable, less name calling, somewhat better. Takes her medications whole. No CV, , pulmonary, eye, ENT system symptoms on review. Gait unsteady, in wheelchair. Reliability poor. MENTAL STATUS EXAM: Oriented to herself. Insight, judgment, recent memory is impaired. Language function intact. Attention span short. Mood and affect, lability is improved. LABORATORY DATA: Reviewed. IMPRESSION: Unchanged from initial note. PLAN: Start Depakote 250 mg twice a day. Check CBC, CMP, valproic acid level in 3 days. Continue rest unchanged. Treat the UTI. MAN Luis QUIJANO MD DR: LOYD/eboni JOB#: [id number] / [id number]
--- NOTE | 2017-10-06 23:26 | PN ---
DATE: 10/06/2017 This note covers elements not covered in my initial note. SUBJECTIVE: I met with the patient in the evening. She states she is doing better, but is distressed that she has to come out to the group room. She prefers to work on crossword puzzles and I have discussed with Ismael, nursing staff to provide these for her. REVIEW OF SYSTEMS: Ambulation impaired, in wheelchair. No CV, , pulmonary, eye, ENT system symptoms on review. Reliability poor. MENTAL STATUS EXAM: Oriented to herself and situation. Speech coherent, abstraction fair, computation impaired, language function intact. Mood and affect, lability is improved. Quite verbal forthcoming as I met with her. LABORATORY DATA: Reviewed. IMPRESSION: Unchanged from initial note. PLAN: No change from a psychiatric standpoint. Follow labs level on the Depakote on 10/07/2017. MAN Luis QUIJANO MD DR: LOYD/ebnoi JOB#: [id number] / [id number]
[2017-10-07] MEDS: LEVOTHYROXINE 75 MCG TABLET PO SCH (05:39)
[2017-10-07] MEDS: MAGNESIUM OXIDE 400 MG TABLET PO SCH ×3 (05:39→19:45)
[2017-10-07] MEDS: CALCIUM CARBONATE 500 MG TABLET PO SCH ×2 (05:41→17:30)
[2017-10-07 05:59] VITALS: BP 99/67
[2017-10-07 06:52] LABS: BASO % 1 % (0-3); EOS # 0.3 x10^3/uL (0.0-0.7); EOS % 9 % (0-3); HEMATOCRIT 32.1 % (36.0-47.0); HEMOGLOBIN 10.9 g/dL (12.0-15.5); LYMPH # 1.4 x10^3/uL (1.0-4.8); LYMPH % 39 % (24-48); MEAN CORPUSCULAR HEMOGLOBIN 31 pg (25-35); MEAN CORPUSCULAR HGB CONC 34 g/dL (31-37); MEAN CORPUSCULAR VOLUME 92 fL (79-100); MONO # 0.4 x10^3/uL (0.0-1.1); MONO % 12 % (0-9); NEUT # 1.4 x10^3uL (1.8-7.7); NEUT % 39 % (31-73); PLATELET COUNT 168 x10^3/uL (140-400); RED BLOOD COUNT 3.47 x10^6/uL (3.50-5.40); RED CELL DISTRIBUTION WIDTH 13.6 % (11.5-14.5); WHITE BLOOD COUNT 3.5 x10^3/uL (4.0-11.0)
[2017-10-07 07:05] LABS: ALBUMIN 2.7 g/dL (3.4-5.0); ALBUMIN/GLOBULIN RATIO 0.9 (1.0-1.7); ALK PHOS 127 U/L (46-116); ALT (SGPT) 15 U/L (14-59); ANION GAP 1 (6-14); AST (SGOT) 12 U/L (15-37); BLOOD UREA NITROGEN 30 mg/dL (7-20); BUN/CREATININE RATIO 50 (6-20); CALCIUM 8.6 mg/dL (8.5-10.1); CARBON DIOXIDE 34 mmol/L (21-32); CHLORIDE 107 mmol/L (98-107); CREATININE 0.6 mg/dL (0.6-1.0); GFR 100.6; GLUCOSE 88 mg/dL (70-99); POTASSIUM 3.8 mmol/L (3.5-5.1); SODIUM 142 mmol/L (136-145); TOTAL BILIRUBIN 0.2 mg/dL (0.2-1.0); TOTAL PROTEIN 5.8 g/dL (6.4-8.2)
[2017-10-07 07:12] LABS: VAL ACID 31 mcg/mL (50-100)
[2017-10-07] MEDS: QUEtiapine 25 MG TABLET. PO SCH ×4 (09:52→19:45)
[2017-10-07] MEDS: DULoxetine HCL 60 MG CAPSULE.DR PO SCH (09:52)
[2017-10-07] MEDS: CHOLECALCIFEROL (VITAMIN D3) 1,000 UNIT TABLET PO SCH (09:52)
[2017-10-07] MEDS: FERROUS SULFATE 325 MG TABLET. PO SCH ×2 (09:52→17:31)
[2017-10-07] MEDS: DIVALPROEX 125 MG CAP.SPRINK PO SCH ×2 (09:52→17:31)
[2017-10-07] MEDS: PANTOPRAZOLE 40 MG TABLET. PO SCH ×2 (09:52→17:31)
[2017-10-07] MEDS: levETIRAcetam 250 MG TABLET PO SCH ×2 (09:52→17:37)
[2017-10-07] MEDS: LACTOBACILLUS RHAMNOSUS GG 1 CAPSULE. PO SCH ×2 (09:53→19:45)
[2017-10-07] MEDS: LACOSAMIDE 50 MG TABLET PO SCH ×2 (09:53→17:31)
[2017-10-07] MEDS: FELBAMATE 400 MG TABLET PO SCH ×3 (09:58→19:47)
[2017-10-07 16:26] VITALS: BP 93/71
[2017-10-07] MEDS: ATORVASTATIN CALCIUM 10 MG TABLET. PO SCH (19:44)
[2017-10-07] MEDS: PHENobarbital 32.4 MG TABLET. PO SCH (19:46)
--- NOTE | 2017-10-07 20:54 | PDOC ---
Exam Note: David Note: Please also refer to the separate dictated note~for this date of service dictated separately.~Patient seen individually. Discussed the patient with Nursing staff reviewed the chart.~Reviewed interim history and current functioning. Reviewed vital signs,~Labs/ Radiology~and current medications noted below. Continue current treatment with the changes noted in the dictated addendum note Assessment: Vital Signs: Vital Signs Date Time Temp Pulse Resp B/P (MAP) Pulse Ox O2 Delivery O2 Flow Rate FiO2 10/07/17 16:26 98.1 84 17 93/71 (78) 94 Room Air I&O Intake and Output 10/07/17 07:00 Intake Total 480 ml Balance 480 ml Intake Oral 480 ml # Bowel Movements 1 Labs: Laboratory Tests Test 10/07/17 06:35 White Blood Count 3.5 x10^3/uL (4.0-11.0) L Red Blood Count 3.47 x10^6/uL (3.50-5.40) L Hemoglobin 10.9 g/dL (12.0-15.5) L Hematocrit 32.1 % (36.0-47.0) L Mean Corpuscular Volume 92 fL (79-100) Mean Corpuscular Hemoglobin 31 pg (25-35) Mean Corpuscular Hemoglobin Concent 34 g/dL (31-37) Red Cell Distribution Width 13.6 % (11.5-14.5) Platelet Count 168 x10^3/uL (140-400) Neutrophils (%) (Auto) 39 % (31-73) Lymphocytes (%) (Auto) 39 % (24-48) Monocytes (%) (Auto) 12 % (0-9) H Eosinophils (%) (Auto) 9 % (0-3) H Basophils (%) (Auto) 1 % (0-3) Neutrophils # (Auto) 1.4 x10^3uL (1.8-7.7) L Lymphocytes # (Auto) 1.4 x10^3/uL (1.0-4.8) Monocytes # (Auto) 0.4 x10^3/uL (0.0-1.1) Eosinophils # (Auto) 0.3 x10^3/uL (0.0-0.7) Basophils # (Auto) 0.0 x10^3/uL (0.0-0.2) Sodium Level 142 mmol/L (136-145) Potassium Level 3.8 mmol/L (3.5-5.1) Chloride Level 107 mmol/L (98-107) Carbon Dioxide Level 34 mmol/L (21-32) H Anion Gap 1 (6-14) L Blood Urea Nitrogen 30 mg/dL (7-20) H Creatinine 0.6 mg/dL (0.6-1.0) Estimated GFR (Cockcroft-Gault) 100.6 BUN/Creatinine Ratio 50 (6-20) H Glucose Level 88 mg/dL (70-99) Calcium Level 8.6 mg/dL (8.5-10.1) Total Bilirubin 0.2 mg/dL (0.2-1.0) Aspartate Amino Transferase (AST) 12 U/L (15-37) L Alanine Aminotransferase (ALT) 15 U/L (14-59) Alkaline Phosphatase 127 U/L (46-116) H Total Protein 5.8 g/dL (6.4-8.2) L Albumin 2.7 g/dL (3.4-5.0) L Albumin/Globulin Ratio 0.9 (1.0-1.7) L Valproic Acid Level 31 mcg/mL (50-100) L Valproic Acid Last Dose Date 10/06/2017 Valproic Acid Last Dose Time 0900 Current Medications: Meds: Current Medications Acetaminophen (Tylenol) 650 mg PRN Q6HRS PRN PO PAIN / TEMP; Start 09/29/17 at 23:15 Multi-Ingredient Ointment (Analgesic [place]) 1 vale PRN QID PRN TP MUSCLE PAIN; Start 09/29/17 at 23:15 Al Hydroxide/Mg Hydroxide (Mylanta Plus Xs) 15 ml PRN AFTMEALHC PRN PO DYSPEPSIA; Start 09/29/17 at 23:15 Magnesium Hydroxide (Milk Of Magnesia) 2,400 mg PRN QHS PRN PO CONSTIPATION; Start 09/29/17 at 23:15 Non-Formulary Medication (Haloperidol ) 1 mg TID AT 12/26/1699 PO ; Start at 00:15; Stop 09/30/17 at 00:58; Status DC Non-Formulary Medication (Quetiapine Fumarate (Seroquel)) 25 mg TID AT 1999 PO ; Start 09/30/17 at 00:15; Stop 09/30/17 at 00:58; Status DC Non-Formulary Medication (Venlafaxine Hcl (Venlafaxine Hcl Er)) 112.5 mg HS PO ; Start 09/30/17 at 21:00; Stop 09/30/17 at 21:00; Status DC Vitamin D (Vitamin D3) 1,000 unit DAILY PO Last administered on 10/07/17 09:52 ; Start 09/30/17 at 09:00 Felbamate (Felbatol) 800 mg TID PO Last administered on 10/07/17 19:47; Start 09/30/17 at 09:00 Ferrous Sulfate (Feosol) 325 mg BIDAFTMEAL PO Last administered on 10/07/17 17 :31; Start 09/30/17 at 09:00 Levothyroxine Sodium (Synthroid) 75 mcg DAILY06 PO Last administered on 05:39; Start 09/30/17 at 06:00 Senna/Docusate Sodium (Senna Plus) 1 tab PRN BID PRN PO CONSTIPATION; Start at 00:15 Trimethoprim/ Sulfamethoxazole (Bactrim Ds) 1 tab BID PO Last administered on at 08:32; Start 09/30/17 at 09:00; Stop 10/04/17 at 17:32; Status DC Tramadol HCl (Ultram) 50 mg PRN Q6HRS PRN PO PAIN; Start 09/30/17 at 00:15 Non-Formulary Medication (Atorvastatin Calcium ) 5 mg QHS PO ; Start 09/30/17 at 21:00; Stop 09/30/17 at 21:00; Status DC Non-Formulary Medication (Bisacodyl ) 10 mg PRN DAILY PRN RC CONSTIPATION; Start 09/30/17 at 00:15; Stop 09/30/17 at 00:58; Status DC Non-Formulary Medication (Calcium Carbonate ) 5 ml BID AT 0600, 1800 PO ; Start 09/30/17 at 00:15; Stop 09/30/17 at 00:58; Status DC Non-Formulary Medication (Lacosamide (Vimpat)) 150 mg BID AT 0900, 1700 PO ; Start 09/30/17 at 00:15; Stop 09/30/17 at 00:58; Status DC Non-Formulary Medication (Levetiracetam (Keppra)) 750 mg BID AT 0900, 1700 PO ; Start 09/30/17 at 00:15; Stop 09/30/17 at 00:58; Status DC Non-Formulary Medication (Magnesium Oxide ) 400 mg TID AT 12/30/2099 PO ; Start 09/30/17 at 00:15; Stop 09/30/17 at 00:58; Status DC Non-Formulary Medication (Multivits,Th W-Fe,Other Min (Therems-M)) 1 tab DAILY PO ; Start 09/30/17 at 09:00; Stop 09/30/17 at 09:00; Status DC Non-Formulary Medication (Pantoprazole Sodium ) 40 mg BID PO ; Start 09/30/17 at 09:00; Stop 09/30/17 at 09:00; Status DC Non-Formulary Medication (Phenobarbital ) 64.8 mg HS PO ; Start 09/30/17 at 21: 00; Stop 09/30/17 at 21:00; Status DC Non-Formulary Medication (Polyethylene Glycol 3350 (Miralax)) 17 gm PRN DAILY PRN PO CONSTIPATION; Start 09/30/17 at 00:15; Stop 09/30/17 at 00:58; Status DC Non-Formulary Medication (Potassium Chloride ) 10 meq DAILY PO ; Start 09/30/17 at 09:00; Stop 09/30/17 at 09:00; Status DC Haloperidol (Haldol) 1 mg TIDPC PO Last administered on 10/01/17at 17:48; Start 09/30/17 at 08:30; Stop 10/01/17 at 18:14; Status DC Quetiapine Fumarate (SEROquel) 25 mg TID PO Last administered on 10/02/17at 12: 22; Start 09/30/17 at 09:00; Stop 10/02/17 at 18:09; Status DC Venlafaxine HCl (Effexor Xr) 112.5 mg DAILY PO Last administered on 10/01/17at 08:27; Start 09/30/17 at 09:00; Stop 10/01/17 at 18:14; Status DC Calcium Carbonate/ Glycine (Oscal) 1,250 mg BID66 PO Last administered on 17:30; Start 09/30/17 at 06:00 Pantoprazole Sodium (Protonix) 40 mg BIDBFRMEAL PO Last administered on 17:31; Start 09/30/17 at 07:30 Magnesium Oxide (Magnesium Oxide) 400 mg TID PO Last administered on 10/07/17 19:45; Start 09/30/17 at 09:00 Atorvastatin Calcium (Lipitor) 5 mg QHS PO Last administered on 10/07/17 19:44 ; Start 09/30/17 at 21:00 Lacosamide (Vimpat) 200 mg BIDAFTMEAL PO Last administered on 10/07/17 17:31; Start 09/30/17 at 09:00 Levetiracetam (Keppra) 750 mg BIDAFTMEAL PO Last administered on 10/07/17 17: 37; Start 09/30/17 at 09:00 Phenobarbital (Luminal) 64.8 mg QHS PO Last administered on 10/07/17 19:46; Start 09/30/17 at 21:00 Polyethylene Glycol (miraLAX) 17 gm PRN DAILY PRN PO CONSTIPATION; Start at 01:15 Bisacodyl (Dulcolax Supp) 10 mg PRN DAILY PRN [place] CONSTIPATION; Start 09/30/17 at 01:15 Trazodone HCl (Desyrel) 50 mg PRN QHS PRN PO INSOMNIA; Start 09/30/17 at 18:45 Lactobacillus Rhamnosus (Culturelle) 1 cap BID PO Last administered on 19:45; Start 10/01/17 at 21:00 Haloperidol (Haldol) 1 mg BID PO Last administered on 10/03/17 20:45; Start at 21:00; Stop 10/03/17 at 21:01; Status DC Duloxetine HCl (Cymbalta) 30 mg DAILY PO Last administered on 10/04/17 08:31; Start 10/02/17 at 09:00; Stop 10/04/17 at 09:01; Status DC Duloxetine HCl (Cymbalta) 60 mg DAILY PO Last administered on 10/07/17 09:52; Start 10/05/17 at 09:00 Haloperidol (Haldol) 1 mg DAILY PO Last administered on 10/05/17at 08:57; Start 10/04/17 at 09:00; Stop 10/05/17 at 09:02; Status DC Quetiapine Fumarate (SEROquel) 25 mg [id number] PO Last administered on 10/07/17at 19:45; Start 10/02/17 at 21:00 Divalproex Sodium (Depakote Sprinkles) 250 mg [id number] PO Last administered on at 17:31; Start 10/05/17 at 09:00 Active Scripts Active Reported Bactrim Ds Tablet (Sulfamethoxazole/Trimethoprim) 1 Each Tablet 1 Tab PO BID X3 DAYS Miralax (Polyethylene Glycol 3350) 17 Gm Powd.pack 17 Gm PO PRN DAILY PRN Milk Of Magnesia (Magnesium Hydroxide) 2,400 Mg/10 Ml Oral.susp 2,400 Mg PO PRN DAILY PRN Venlafaxine Hcl Er (Venlafaxine Hcl) 37.5 Mg Cap.er.24h 112.5 Mg PO HS Atorvastatin Calcium 10 Mg Tablet 5 Mg PO QHS Seroquel (Quetiapine Fumarate) 25 Mg Tablet 25 Mg PO TID AT 12/28/1999 Haloperidol 1 Mg Tablet 1 Mg PO TID AT 12/26/1699 Pantoprazole Sodium 40 Mg Tablet.dr 40 Mg PO BID Vitamin D3 (Cholecalciferol (Vitamin D3)) 1,000 Unit Tablet 1,000 Unit PO DAILY Therems-M (Multivits,Th W-Fe,Other Min) 1 Each Tablet 1 Tab PO DAILY Potassium Chloride 10 Meq Tablet.er 10 Meq PO DAILY Levothyroxine Sodium 75 Mcg Tablet 75 Mcg PO DAILYAC Phenobarbital 64.8 Mg Tablet 64.8 Mg PO HS Calcium Carbonate 500 Mg/5 Ml Oral.susp 5 Ml PO BID AT 0600, 1800 Magnesium Oxide 400 Mg Tablet 400 Mg PO TID AT 12/30/2099 Vimpat (Lacosamide) 150 Mg Tablet 150 Mg PO BID AT 0900, 1700 Tylenol (Acetaminophen) 325 Mg Tablet 650 Mg PO PRN Q6HRS PRN Tramadol Hcl (Tramadol HCl) 50 Mg Tablet 50 Mg PO PRN Q6HRS PRN Senna-S Tablet (Sennosides/Docusate Sodium) 1 Each Tablet 1 Tab PO PRN BID PRN Keppra (Levetiracetam) 250 Mg Tablet 750 Mg PO BID AT 0900, 1700 Ferrous Sulfate 325 Mg Tablet 325 Mg PO BIDAFTMEAL Bisacodyl 10 Mg Supp.rect 10 Mg RC PRN DAILY PRN Felbamate 400 Mg Tablet 800 Mg PO TID AT 12/26/1699 I have reviewed the current psychotropics carefully including drug interactions. Risk benefit ratio favors no change other than as noted in my dictated progress note. Diagnosis: Problems: (1) Functional diarrhea (2) urinary tract infection (3) Left hip arthroplasty (4) Severe major depression with psychotic features (5) Adjustment disorder with depressed mood (6) Bipolar affective, mixed (7) Impulse control disorder (8) Dementia, vascular, with delusions (9) Dementia, vascular, with depression HARVEY QUIJANO MD Oct 07, 2017 20:54
[2017-10-08] MEDS: LEVOTHYROXINE 75 MCG TABLET PO SCH (05:45)
[2017-10-08] MEDS: CALCIUM CARBONATE 500 MG TABLET PO SCH ×2 (05:45→16:53)
[2017-10-08 07:27] VITALS: BP 99/61
[2017-10-08] MEDS: DIVALPROEX 125 MG CAP.SPRINK PO SCH ×2 (08:09→16:53)
[2017-10-08] MEDS: levETIRAcetam 250 MG TABLET PO SCH ×2 (08:09→16:54)
[2017-10-08] MEDS: FELBAMATE 400 MG TABLET PO SCH ×3 (08:09→19:56)
[2017-10-08] MEDS: FERROUS SULFATE 325 MG TABLET. PO SCH ×2 (08:10→16:53)
[2017-10-08] MEDS: PANTOPRAZOLE 40 MG TABLET. PO SCH ×2 (08:10→16:53)
[2017-10-08] MEDS: DULoxetine HCL 60 MG CAPSULE.DR PO SCH (08:10)
[2017-10-08] MEDS: CHOLECALCIFEROL (VITAMIN D3) 1,000 UNIT TABLET PO SCH (08:10)
[2017-10-08] MEDS: QUEtiapine 25 MG TABLET. PO SCH ×4 (08:10→19:56)
[2017-10-08] MEDS: MAGNESIUM OXIDE 400 MG TABLET PO SCH ×3 (08:10→16:52)
[2017-10-08] MEDS: LACTOBACILLUS RHAMNOSUS GG 1 CAPSULE. PO SCH ×2 (08:10→19:56)
[2017-10-08] MEDS: LACOSAMIDE 50 MG TABLET PO SCH ×2 (08:13→16:52)
[2017-10-08 16:38] VITALS: BP 99/63
[2017-10-08] MEDS: ATORVASTATIN CALCIUM 10 MG TABLET. PO SCH (19:56)
--- NOTE | 2017-10-08 19:56 | PN ---
DATE: 10/07/2017 PSYCHIATRIC PROGRESS NOTE This is a late entry 10/07/2017 covers elements not covered in my initial note. SUBJECTIVE: I met with the patient in the evening. The patient is compliant with her medications, was somewhat demanding in the morning, but better rest of the day. She is wanting to work on puzzles, nursing staff are arranging this. REVIEW OF SYSTEMS: Ambulation impaired with a wheelchair. No CV, , pulmonary, eye, ENT system symptoms on review. MENTAL STATUS EXAM: Oriented to herself. Insight, judgment, recent and remote memory, attention, concentration, fund of knowledge poor, consistent with her diagnosis mentioned in my initial note. PLAN: Continue current psychotropics including Depakote. Follow labs level. Adjust Depakote to reach therapeutic level. Labs will be repeated on 10/07/2017. MAN Luis QUIJANO MD DR: LOYD/eboni JOB#: [id number] / [id number]
[2017-10-08] MEDS: PHENobarbital 32.4 MG TABLET. PO SCH (19:59)
[2017-10-08] MEDS: DIVALPROEX SODIUM 125 MG TABLET.DR. PO SCH (19:59)
[2017-10-09 05:36] VITALS: BP 102/62
[2017-10-09] MEDS: LEVOTHYROXINE 75 MCG TABLET PO SCH (05:40)
[2017-10-09] MEDS: CALCIUM CARBONATE 500 MG TABLET PO SCH ×2 (05:40→16:49)
[2017-10-09] MEDS: QUEtiapine 25 MG TABLET. PO SCH ×4 (07:45→19:30)
[2017-10-09] MEDS: DIVALPROEX SODIUM 125 MG TABLET.DR. PO SCH ×2 (07:46→19:30)
[2017-10-09] MEDS: levETIRAcetam 250 MG TABLET PO SCH ×2 (07:46→16:48)
[2017-10-09] MEDS: MAGNESIUM OXIDE 400 MG TABLET PO SCH ×3 (07:46→16:49)
[2017-10-09] MEDS: PANTOPRAZOLE 40 MG TABLET. PO SCH ×2 (07:47→16:49)
[2017-10-09] MEDS: FELBAMATE 400 MG TABLET PO SCH ×3 (07:47→19:33)
[2017-10-09] MEDS: FERROUS SULFATE 325 MG TABLET. PO SCH ×2 (07:47→16:49)
[2017-10-09] MEDS: LACTOBACILLUS RHAMNOSUS GG 1 CAPSULE. PO SCH ×2 (07:47→19:30)
[2017-10-09] MEDS: CHOLECALCIFEROL (VITAMIN D3) 1,000 UNIT TABLET PO SCH (07:47)
[2017-10-09] MEDS: DULoxetine HCL 60 MG CAPSULE.DR PO SCH (07:47)
[2017-10-09] MEDS: LACOSAMIDE 50 MG TABLET PO SCH ×2 (07:49→16:48)
[2017-10-09 15:57] VITALS: BP 90/54
[2017-10-09] MEDS: ATORVASTATIN CALCIUM 10 MG TABLET. PO SCH (19:30)
[2017-10-09] MEDS: PHENobarbital 32.4 MG TABLET. PO SCH (19:32)
--- NOTE | 2017-10-09 20:10 | PDOC ---
Exam Note: David Note: Late entry for date of service 08 October 2017. Please also refer to the separate dictated note~for this date of service dictated separately.~Patient seen individually. Discussed the patient with Nursing staff reviewed the chart.~ Reviewed interim history and current functioning. Reviewed vital signs,~Labs/ Radiology~and current medications noted below. Continue current treatment with the changes noted in the dictated addendum note Assessment: Vital Signs: VS - Last 72 Hours, by Label Date Time Temp Pulse Resp B/P (MAP) Pulse Ox O2 Delivery O2 Flow Rate FiO2 10/09/17 15:57 98.3 73 20 90/54 (66) 97 Room Air 10/09/17 05:36 98.4 66 12 102/62 (75) 97 Room Air 10/08/17 16:38 98.0 70 18 99/63 (75) 95 10/08/17 07:27 97.5 72 22 99/61 (74) 96 Room Air 10/07/17 16:26 98.1 84 17 93/71 (78) 94 Room Air 10/07/17 05:59 98.2 76 12 99/67 (78) 97 Room Air Vital Signs Date Time Temp Pulse Resp B/P (MAP) Pulse Ox O2 Delivery O2 Flow Rate FiO2 10/09/17 15:57 98.3 73 20 90/54 (66) 97 Room Air I&O Intake and Output 10/09/17 07:00 Intake Total 360 ml Balance 360 ml Intake Oral 360 ml # Bowel Movements 1 Current Medications: Meds: Current Medications Acetaminophen (Tylenol) 650 mg PRN Q6HRS PRN PO PAIN / TEMP; Start 09/29/17 at 23:15 Multi-Ingredient Ointment (Analgesic [place]) 1 vale PRN QID PRN TP MUSCLE PAIN; Start 09/29/17 at 23:15 Al Hydroxide/Mg Hydroxide (Mylanta Plus Xs) 15 ml PRN AFTMEALHC PRN PO DYSPEPSIA; Start 09/29/17 at 23:15 Magnesium Hydroxide (Milk Of Magnesia) 2,400 mg PRN QHS PRN PO CONSTIPATION; Start 09/29/17 at 23:15 Non-Formulary Medication (Haloperidol ) 1 mg TID AT 12/26/1699 PO ; Start at 00:15; Stop 09/30/17 at 00:58; Status DC Non-Formulary Medication (Quetiapine Fumarate (Seroquel)) 25 mg TID AT 1999 PO ; Start 09/30/17 at 00:15; Stop 09/30/17 at 00:58; Status DC Non-Formulary Medication (Venlafaxine Hcl (Venlafaxine Hcl Er)) 112.5 mg HS PO ; Start 09/30/17 at 21:00; Stop 09/30/17 at 21:00; Status DC Vitamin D (Vitamin D3) 1,000 unit DAILY PO Last administered on 10/09/17at 07:47 ; Start 09/30/17 at 09:00 Felbamate (Felbatol) 800 mg TID PO Last administered on 10/09/17at 19:33; Start 09/30/17 at 09:00 Ferrous Sulfate (Feosol) 325 mg BIDAFTMEAL PO Last administered on 10/09/17at 16 :49; Start 09/30/17 at 09:00 Levothyroxine Sodium (Synthroid) 75 mcg DAILY06 PO Last administered on at 05:40; Start 09/30/17 at 06:00 Senna/Docusate Sodium (Senna Plus) 1 tab PRN BID PRN PO CONSTIPATION; Start at 00:15 Trimethoprim/ Sulfamethoxazole (Bactrim Ds) 1 tab BID PO Last administered on at 08:32; Start 09/30/17 at 09:00; Stop 10/04/17 at 17:32; Status DC Tramadol HCl (Ultram) 50 mg PRN Q6HRS PRN PO PAIN; Start 09/30/17 at 00:15 Non-Formulary Medication (Atorvastatin Calcium ) 5 mg QHS PO ; Start 09/30/17 at 21:00; Stop 09/30/17 at 21:00; Status DC Non-Formulary Medication (Bisacodyl ) 10 mg PRN DAILY PRN RC CONSTIPATION; Start 09/30/17 at 00:15; Stop 09/30/17 at 00:58; Status DC Non-Formulary Medication (Calcium Carbonate ) 5 ml BID AT 0600, 1800 PO ; Start 09/30/17 at 00:15; Stop 09/30/17 at 00:58; Status DC Non-Formulary Medication (Lacosamide (Vimpat)) 150 mg BID AT 0900, 1700 PO ; Start 09/30/17 at 00:15; Stop 09/30/17 at 00:58; Status DC Non-Formulary Medication (Levetiracetam (Keppra)) 750 mg BID AT 0900, 1700 PO ; Start 09/30/17 at 00:15; Stop 09/30/17 at 00:58; Status DC Non-Formulary Medication (Magnesium Oxide ) 400 mg TID AT 12/30/2099 PO ; Start 09/30/17 at 00:15; Stop 09/30/17 at 00:58; Status DC Non-Formulary Medication (Multivits,Th W-Fe,Other Min (Therems-M)) 1 tab DAILY PO ; Start 09/30/17 at 09:00; Stop 09/30/17 at 09:00; Status DC Non-Formulary Medication (Pantoprazole Sodium ) 40 mg BID PO ; Start 09/30/17 at 09:00; Stop 09/30/17 at 09:00; Status DC Non-Formulary Medication (Phenobarbital ) 64.8 mg HS PO ; Start 09/30/17 at 21: 00; Stop 09/30/17 at 21:00; Status DC Non-Formulary Medication (Polyethylene Glycol 3350 (Miralax)) 17 gm PRN DAILY PRN PO CONSTIPATION; Start 09/30/17 at 00:15; Stop 09/30/17 at 00:58; Status DC Non-Formulary Medication (Potassium Chloride ) 10 meq DAILY PO ; Start 09/30/17 at 09:00; Stop 09/30/17 at 09:00; Status DC Haloperidol (Haldol) 1 mg TIDPC PO Last administered on 10/01/17at 17:48; Start 09/30/17 at 08:30; Stop 10/01/17 at 18:14; Status DC Quetiapine Fumarate (SEROquel) 25 mg TID PO Last administered on 10/02/17at 12: 22; Start 09/30/17 at 09:00; Stop 10/02/17 at 18:09; Status DC Venlafaxine HCl (Effexor Xr) 112.5 mg DAILY PO Last administered on 10/01/17at 08:27; Start 09/30/17 at 09:00; Stop 10/01/17 at 18:14; Status DC Calcium Carbonate/ Glycine (Oscal) 1,250 mg BID66 PO Last administered on 16:49; Start 09/30/17 at 06:00 Pantoprazole Sodium (Protonix) 40 mg BIDBFRMEAL PO Last administered on 16:49; Start 09/30/17 at 07:30 Magnesium Oxide (Magnesium Oxide) 400 mg TID PO Last administered on 10/09/17 16:49; Start 09/30/17 at 09:00 Atorvastatin Calcium (Lipitor) 5 mg QHS PO Last administered on 10/09/17 19:30 ; Start 09/30/17 at 21:00 Lacosamide (Vimpat) 200 mg BIDAFTMEAL PO Last administered on 10/09/17 16:48; Start 09/30/17 at 09:00 Levetiracetam (Keppra) 750 mg BIDAFTMEAL PO Last administered on 10/09/17 16: 48; Start 09/30/17 at 09:00 Phenobarbital (Luminal) 64.8 mg QHS PO Last administered on 10/09/17 19:32; Start 09/30/17 at 21:00 Polyethylene Glycol (miraLAX) 17 gm PRN DAILY PRN PO CONSTIPATION; Start at 01:15 Bisacodyl (Dulcolax Supp) 10 mg PRN DAILY PRN [place] CONSTIPATION; Start 09/30/17 at 01:15 Trazodone HCl (Desyrel) 50 mg PRN QHS PRN PO INSOMNIA; Start 09/30/17 at 18:45 Lactobacillus Rhamnosus (Culturelle) 1 cap BID PO Last administered on 19:30; Start 10/01/17 at 21:00 Haloperidol (Haldol) 1 mg BID PO Last administered on 10/03/17at 20:45; Start at 21:00; Stop 10/03/17 at 21:01; Status DC Duloxetine HCl (Cymbalta) 30 mg DAILY PO Last administered on 10/04/17at 08:31; Start 10/02/17 at 09:00; Stop 10/04/17 at 09:01; Status DC Duloxetine HCl (Cymbalta) 60 mg DAILY PO Last administered on 10/09/17at 07:47; Start 10/05/17 at 09:00 Haloperidol (Haldol) 1 mg DAILY PO Last administered on 10/05/17at 08:57; Start 10/04/17 at 09:00; Stop 10/05/17 at 09:02; Status DC Quetiapine Fumarate (SEROquel) 25 mg [id number] PO Last administered on 10/09/17at 19:30; Start 10/02/17 at 21:00 Divalproex Sodium (Depakote Sprinkles) 250 mg [id number] PO Last administered on at 16:53; Start 10/05/17 at 09:00; Stop 10/08/17 at 18:28; Status DC Divalproex Sodium (Depakote) 375 mg BID PO Last administered on 10/09/17at 19:30 ; Start 10/08/17 at 21:00 Active Scripts Active Reported Bactrim Ds Tablet (Sulfamethoxazole/Trimethoprim) 1 Each Tablet 1 Tab PO BID X3 DAYS Miralax (Polyethylene Glycol 3350) 17 Gm Powd.pack 17 Gm PO PRN DAILY PRN Milk Of Magnesia (Magnesium Hydroxide) 2,400 Mg/10 Ml Oral.susp 2,400 Mg PO PRN DAILY PRN Venlafaxine Hcl Er (Venlafaxine Hcl) 37.5 Mg Cap.er.24h 112.5 Mg PO HS Atorvastatin Calcium 10 Mg Tablet 5 Mg PO QHS Seroquel (Quetiapine Fumarate) 25 Mg Tablet 25 Mg PO TID AT 12/28/1999 Haloperidol 1 Mg Tablet 1 Mg PO TID AT 12/26/1699 Pantoprazole Sodium 40 Mg Tablet.dr 40 Mg PO BID Vitamin D3 (Cholecalciferol (Vitamin D3)) 1,000 Unit Tablet 1,000 Unit PO DAILY Therems-M (Multivits, W-Fe,Other Min) 1 Each Tablet 1 Tab PO DAILY Potassium Chloride 10 Meq Tablet.er 10 Meq PO DAILY Levothyroxine Sodium 75 Mcg Tablet 75 Mcg PO DAILYAC Phenobarbital 64.8 Mg Tablet 64.8 Mg PO HS Calcium Carbonate 500 Mg/5 Ml Oral.susp 5 Ml PO BID AT 0600, 1800 Magnesium Oxide 400 Mg Tablet 400 Mg PO TID AT 12/30/2099 Vimpat (Lacosamide) 150 Mg Tablet 150 Mg PO BID AT 0900, 1700 Tylenol (Acetaminophen) 325 Mg Tablet 650 Mg PO PRN Q6HRS PRN Tramadol Hcl (Tramadol HCl) 50 Mg Tablet 50 Mg PO PRN Q6HRS PRN Senna-S Tablet (Sennosides/Docusate Sodium) 1 Each Tablet 1 Tab PO PRN BID PRN Keppra (Levetiracetam) 250 Mg Tablet 750 Mg PO BID AT 0900, 1700 Ferrous Sulfate 325 Mg Tablet 325 Mg PO BIDAFTMEAL Bisacodyl 10 Mg Supp.rect 10 Mg RC PRN DAILY PRN Felbamate 400 Mg Tablet 800 Mg PO TID AT 12/26/1699 I have reviewed the current psychotropics carefully including drug interactions. Risk benefit ratio favors no change other than as noted in my dictated progress note. Diagnosis: Problems: (1) Functional diarrhea (2) urinary tract infection (3) Left hip arthroplasty (4) Severe major depression with psychotic features (5) Adjustment disorder with depressed mood (6) Bipolar affective, mixed (7) Impulse control disorder (8) Dementia, vascular, with delusions (9) Dementia, vascular, with depression HARVEY QUIJANO MD Oct 09, 2017 20:10
--- NOTE | 2017-10-09 20:11 | PDOC ---
Exam Note: David Note: Please also refer to the separate dictated note~for this date of service dictated separately.~Patient seen individually. Discussed the patient with Nursing staff reviewed the chart.~Reviewed interim history and current functioning. Reviewed vital signs,~Labs/ Radiology~and current medications noted below. Continue current treatment with the changes noted in the dictated addendum note Assessment: Vital Signs: Vital Signs Date Time Temp Pulse Resp B/P (MAP) Pulse Ox O2 Delivery O2 Flow Rate FiO2 10/09/17 15:57 98.3 73 20 90/54 (66) 97 Room Air I&O Intake and Output 10/09/17 07:00 Intake Total 360 ml Balance 360 ml Intake Oral 360 ml # Bowel Movements 1 Current Medications: Meds: Current Medications Acetaminophen (Tylenol) 650 mg PRN Q6HRS PRN PO PAIN / TEMP; Start 09/29/17 at 23:15 Multi-Ingredient Ointment (Analgesic [place]) 1 vale PRN QID PRN TP MUSCLE PAIN; Start 09/29/17 at 23:15 Al Hydroxide/Mg Hydroxide (Mylanta Plus Xs) 15 ml PRN AFTMEALHC PRN PO DYSPEPSIA; Start 09/29/17 at 23:15 Magnesium Hydroxide (Milk Of Magnesia) 2,400 mg PRN QHS PRN PO CONSTIPATION; Start 09/29/17 at 23:15 Non-Formulary Medication (Haloperidol ) 1 mg TID AT 12/26/1699 PO ; Start at 00:15; Stop 09/30/17 at 00:58; Status DC Non-Formulary Medication (Quetiapine Fumarate (Seroquel)) 25 mg TID AT 1999 PO ; Start 09/30/17 at 00:15; Stop 09/30/17 at 00:58; Status DC Non-Formulary Medication (Venlafaxine Hcl (Venlafaxine Hcl Er)) 112.5 mg HS PO ; Start 09/30/17 at 21:00; Stop 09/30/17 at 21:00; Status DC Vitamin D (Vitamin D3) 1,000 unit DAILY PO Last administered on 10/09/17at 07:47 ; Start 09/30/17 at 09:00 Felbamate (Felbatol) 800 mg TID PO Last administered on 10/09/17at 19:33; Start 09/30/17 at 09:00 Ferrous Sulfate (Feosol) 325 mg BIDAFTMEAL PO Last administered on 10/09/17at 16 :49; Start 09/30/17 at 09:00 Levothyroxine Sodium (Synthroid) 75 mcg DAILY06 PO Last administered on at 05:40; Start 09/30/17 at 06:00 Senna/Docusate Sodium (Senna Plus) 1 tab PRN BID PRN PO CONSTIPATION; Start at 00:15 Trimethoprim/ Sulfamethoxazole (Bactrim Ds) 1 tab BID PO Last administered on at 08:32; Start 09/30/17 at 09:00; Stop 10/04/17 at 17:32; Status DC Tramadol HCl (Ultram) 50 mg PRN Q6HRS PRN PO PAIN; Start 09/30/17 at 00:15 Non-Formulary Medication (Atorvastatin Calcium ) 5 mg QHS PO ; Start 09/30/17 at 21:00; Stop 09/30/17 at 21:00; Status DC Non-Formulary Medication (Bisacodyl ) 10 mg PRN DAILY PRN [place] CONSTIPATION; Start 09/30/17 at 00:15; Stop 09/30/17 at 00:58; Status DC Non-Formulary Medication (Calcium Carbonate ) 5 ml BID AT 0600, 1800 PO ; Start 09/30/17 at 00:15; Stop 09/30/17 at 00:58; Status DC Non-Formulary Medication (Lacosamide (Vimpat)) 150 mg BID AT 0900, 1700 PO ; Start 09/30/17 at 00:15; Stop 09/30/17 at 00:58; Status DC Non-Formulary Medication (Levetiracetam (Keppra)) 750 mg BID AT 0900, 1700 PO ; Start 09/30/17 at 00:15; Stop 09/30/17 at 00:58; Status DC Non-Formulary Medication (Magnesium Oxide ) 400 mg TID AT 12/30/2099 PO ; Start 09/30/17 at 00:15; Stop 09/30/17 at 00:58; Status DC Non-Formulary Medication (Multivits,Th W-Fe,Other Min (Therems-M)) 1 tab DAILY PO ; Start 09/30/17 at 09:00; Stop 09/30/17 at 09:00; Status DC Non-Formulary Medication (Pantoprazole Sodium ) 40 mg BID PO ; Start 09/30/17 at 09:00; Stop 09/30/17 at 09:00; Status DC Non-Formulary Medication (Phenobarbital ) 64.8 mg HS PO ; Start 09/30/17 at 21: 00; Stop 09/30/17 at 21:00; Status DC Non-Formulary Medication (Polyethylene Glycol 3350 (Miralax)) 17 gm PRN DAILY PRN PO CONSTIPATION; Start 09/30/17 at 00:15; Stop 09/30/17 at 00:58; Status DC Non-Formulary Medication (Potassium Chloride ) 10 meq DAILY PO ; Start 09/30/17 at 09:00; Stop 09/30/17 at 09:00; Status DC Haloperidol (Haldol) 1 mg TIDPC PO Last administered on 10/01/17at 17:48; Start 09/30/17 at 08:30; Stop 10/01/17 at 18:14; Status DC Quetiapine Fumarate (SEROquel) 25 mg TID PO Last administered on 10/02/17at 12: 22; Start 09/30/17 at 09:00; Stop 10/02/17 at 18:09; Status DC Venlafaxine HCl (Effexor Xr) 112.5 mg DAILY PO Last administered on 10/01/17at 08:27; Start 09/30/17 at 09:00; Stop 10/01/17 at 18:14; Status DC Calcium Carbonate/ Glycine (Oscal) 1,250 mg BID66 PO Last administered on at 16:49; Start 09/30/17 at 06:00 Pantoprazole Sodium (Protonix) 40 mg BIDBFRMEAL PO Last administered on at 16:49; Start 09/30/17 at 07:30 Magnesium Oxide (Magnesium Oxide) 400 mg TID PO Last administered on 10/09/17at 16:49; Start 09/30/17 at 09:00 Atorvastatin Calcium (Lipitor) 5 mg QHS PO Last administered on 10/09/17at 19:30 ; Start 09/30/17 at 21:00 Lacosamide (Vimpat) 200 mg BIDAFTMEAL PO Last administered on 10/09/17 16:48; Start 09/30/17 at 09:00 Levetiracetam (Keppra) 750 mg BIDAFTMEAL PO Last administered on 10/09/17 16: 48; Start 09/30/17 at 09:00 Phenobarbital (Luminal) 64.8 mg QHS PO Last administered on 10/09/17 19:32; Start 09/30/17 at 21:00 Polyethylene Glycol (miraLAX) 17 gm PRN DAILY PRN PO CONSTIPATION; Start at 01:15 Bisacodyl (Dulcolax Supp) 10 mg PRN DAILY PRN [place] CONSTIPATION; Start 09/30/17 at 01:15 Trazodone HCl (Desyrel) 50 mg PRN QHS PRN PO INSOMNIA; Start 09/30/17 at 18:45 Lactobacillus Rhamnosus (Culturelle) 1 cap BID PO Last administered on 19:30; Start 10/01/17 at 21:00 Haloperidol (Haldol) 1 mg BID PO Last administered on 10/03/17at 20:45; Start at 21:00; Stop 10/03/17 at 21:01; Status DC Duloxetine HCl (Cymbalta) 30 mg DAILY PO Last administered on 10/04/17at 08:31; Start 10/02/17 at 09:00; Stop 10/04/17 at 09:01; Status DC Duloxetine HCl (Cymbalta) 60 mg DAILY PO Last administered on 10/09/17at 07:47; Start 10/05/17 at 09:00 Haloperidol (Haldol) 1 mg DAILY PO Last administered on 10/05/17 08:57; Start 10/04/17 at 09:00; Stop 10/05/17 at 09:02; Status DC Quetiapine Fumarate (SEROquel) 25 mg [id number] PO Last administered on 10/09/17 19:30; Start 10/02/17 at 21:00 Divalproex Sodium (Depakote Sprinkles) 250 mg [id number] PO Last administered on at 16:53; Start 10/05/17 at 09:00; Stop 10/08/17 at 18:28; Status DC Divalproex Sodium (Depakote) 375 mg BID PO Last administered on 10/09/17at 19:30 ; Start 10/08/17 at 21:00 Active Scripts Active Reported Bactrim Ds Tablet (Sulfamethoxazole/Trimethoprim) 1 Each Tablet 1 Tab PO BID X3 DAYS Miralax (Polyethylene Glycol 3350) 17 Gm Powd.pack 17 Gm PO PRN DAILY PRN Milk Of Magnesia (Magnesium Hydroxide) 2,400 Mg/10 Ml Oral.susp 2,400 Mg PO PRN DAILY PRN Venlafaxine Hcl Er (Venlafaxine Hcl) 37.5 Mg Cap.er.24h 112.5 Mg PO HS Atorvastatin Calcium 10 Mg Tablet 5 Mg PO QHS Seroquel (Quetiapine Fumarate) 25 Mg Tablet 25 Mg PO TID AT 12/28/1999 Haloperidol 1 Mg Tablet 1 Mg PO TID AT 12/26/1699 Pantoprazole Sodium 40 Mg Tablet.dr 40 Mg PO BID Vitamin D3 (Cholecalciferol (Vitamin D3)) 1,000 Unit Tablet 1,000 Unit PO DAILY Therems-M (Multivits,Th W-Fe,Other Min) 1 Each Tablet 1 Tab PO DAILY Potassium Chloride 10 Meq Tablet.er 10 Meq PO DAILY Levothyroxine Sodium 75 Mcg Tablet 75 Mcg PO DAILYAC Phenobarbital 64.8 Mg Tablet 64.8 Mg PO HS Calcium Carbonate 500 Mg/5 Ml Oral.susp 5 Ml PO BID AT 0600, 1800 Magnesium Oxide 400 Mg Tablet 400 Mg PO TID AT 12/30/2099 Vimpat (Lacosamide) 150 Mg Tablet 150 Mg PO BID AT 0900, 1700 Tylenol (Acetaminophen) 325 Mg Tablet 650 Mg PO PRN Q6HRS PRN Tramadol Hcl (Tramadol HCl) 50 Mg Tablet 50 Mg PO PRN Q6HRS PRN Senna-S Tablet (Sennosides/Docusate Sodium) 1 Each Tablet 1 Tab PO PRN BID PRN Keppra (Levetiracetam) 250 Mg Tablet 750 Mg PO BID AT 0900, 1700 Ferrous Sulfate 325 Mg Tablet 325 Mg PO BIDAFTMEAL Bisacodyl 10 Mg Supp.rect 10 Mg RC PRN DAILY PRN Felbamate 400 Mg Tablet 800 Mg PO TID AT 12/26/1699 I have reviewed the current psychotropics carefully including drug interactions. Risk benefit ratio favors no change other than as noted in my dictated progress note. Diagnosis: Problems: (1) Functional diarrhea (2) urinary tract infection (3) Left hip arthroplasty (4) Severe major depression with psychotic features (5) Adjustment disorder with depressed mood (6) Bipolar affective, mixed (7) Impulse control disorder (8) Dementia, vascular, with delusions (9) Dementia, vascular, with depression HARVEY QUIJANO MD Oct 09, 2017 20:11
--- NOTE | 2017-10-09 20:58 | PN ---
DATE: 10/08/2017 PSYCHIATRIC PROGRESS NOTE This is a late entry for 10/08/2017 covers elements not covered in my initial note. SUBJECTIVE: I met with the patient in the evening. The patient slept 6 hours previous evening, somewhat anxious, restless, but overall better, less impulsive and less abrasive. The patient's sister has brought her some puzzle books and she seems to enjoy this. Sister encouraged the patient to walk and nursing staff will follow through on this. REVIEW OF SYSTEMS: No CV, , pulmonary, eye system symptoms on review. Gait unsteady with walker. MENTAL STATUS EXAM: Oriented to herself, situation. Insight, judgment, recent memory is impaired. Language function intact. Attention span short. Mood and affect remain somewhat withdrawn at times, labile, but improved. LABORATORY DATA: Valproic acid level 10/07/2017 was 31, subtherapeutic on Depakote 250 b.i.d. IMPRESSION: Unchanged from initial note. PLAN: Increase Depakote sprinkles to 375 mg twice a day. Check CBC, CMP, valproic acid level in 3 days. Rest unchanged from initial note. MAN Luis QUIJANO MD DR: LOYD/eboni JOB#: [id number] / [id number]
[2017-10-10 05:31] VITALS: BP 86/54
[2017-10-10] MEDS: LEVOTHYROXINE 75 MCG TABLET PO SCH (05:38)
[2017-10-10] MEDS: CALCIUM CARBONATE 500 MG TABLET PO SCH ×2 (05:38→16:44)
[2017-10-10] MEDS: levETIRAcetam 250 MG TABLET PO SCH ×2 (07:25→16:44)
[2017-10-10] MEDS: LACTOBACILLUS RHAMNOSUS GG 1 CAPSULE. PO SCH ×2 (07:26→19:33)
[2017-10-10] MEDS: CHOLECALCIFEROL (VITAMIN D3) 1,000 UNIT TABLET PO SCH (07:26)
[2017-10-10] MEDS: QUEtiapine 25 MG TABLET. PO SCH ×4 (07:26→19:35)
[2017-10-10] MEDS: MAGNESIUM OXIDE 400 MG TABLET PO SCH ×3 (07:26→19:35)
[2017-10-10] MEDS: DULoxetine HCL 60 MG CAPSULE.DR PO SCH (07:26)
[2017-10-10] MEDS: PANTOPRAZOLE 40 MG TABLET. PO SCH ×2 (07:26→16:45)
[2017-10-10] MEDS: FELBAMATE 400 MG TABLET PO SCH ×3 (07:26→19:37)
[2017-10-10] MEDS: LACOSAMIDE 50 MG TABLET PO SCH ×2 (07:26→16:45)
[2017-10-10] MEDS: FERROUS SULFATE 325 MG TABLET. PO SCH ×2 (07:26→16:44)
[2017-10-10] MEDS: DIVALPROEX SODIUM 125 MG TABLET.DR. PO SCH ×2 (07:26→19:33)
[2017-10-10 16:01] VITALS: BP 98/58
[2017-10-10] MEDS: PHENobarbital 32.4 MG TABLET. PO SCH (19:34)
[2017-10-10] MEDS: ATORVASTATIN CALCIUM 10 MG TABLET. PO SCH (19:34)
--- NOTE | 2017-10-10 20:52 | PDOC ---
Exam Note: David Note: Please also refer to the separate dictated note~for this date of service dictated separately.~Patient seen individually. Discussed the patient with Nursing staff reviewed the chart.~Reviewed interim history and current functioning. Reviewed vital signs,~Labs/ Radiology~and current medications noted below. Continue current treatment with the changes noted in the dictated addendum note Assessment: Vital Signs: Vital Signs Date Time Temp Pulse Resp B/P (MAP) Pulse Ox O2 Delivery O2 Flow Rate FiO2 10/10/17 16:01 98.4 72 18 98/58 (71) 98 Room Air I&O Intake and Output 10/10/17 06:59 Intake Total 480 ml Balance 480 ml Intake Oral 480 ml Current Medications: Meds: Current Medications Acetaminophen (Tylenol) 650 mg PRN Q6HRS PRN PO PAIN / TEMP; Start 09/29/17 at 23:15 Multi-Ingredient Ointment (Analgesic [place]) 1 vale PRN QID PRN TP MUSCLE PAIN; Start 09/29/17 at 23:15 Al Hydroxide/Mg Hydroxide (Mylanta Plus Xs) 15 ml PRN AFTMEALHC PRN PO DYSPEPSIA; Start 09/29/17 at 23:15 Magnesium Hydroxide (Milk Of Magnesia) 2,400 mg PRN QHS PRN PO CONSTIPATION; Start 09/29/17 at 23:15 Non-Formulary Medication (Haloperidol ) 1 mg TID AT 12/26/1699 PO ; Start at 00:15; Stop 09/30/17 at 00:58; Status DC Non-Formulary Medication (Quetiapine Fumarate (Seroquel)) 25 mg TID AT 1999 PO ; Start 09/30/17 at 00:15; Stop 09/30/17 at 00:58; Status DC Non-Formulary Medication (Venlafaxine Hcl (Venlafaxine Hcl Er)) 112.5 mg HS PO ; Start 09/30/17 at 21:00; Stop 09/30/17 at 21:00; Status DC Vitamin D (Vitamin D3) 1,000 unit DAILY PO Last administered on 10/10/17at 07:26 ; Start 09/30/17 at 09:00 Felbamate (Felbatol) 800 mg TID PO Last administered on 10/10/17at 19:37; Start 09/30/17 at 09:00 Ferrous Sulfate (Feosol) 325 mg BIDAFTMEAL PO Last administered on 10/10/17at 16 :44; Start 09/30/17 at 09:00 Levothyroxine Sodium (Synthroid) 75 mcg DAILY06 PO Last administered on at 05:38; Start 09/30/17 at 06:00 Senna/Docusate Sodium (Senna Plus) 1 tab PRN BID PRN PO CONSTIPATION; Start at 00:15 Trimethoprim/ Sulfamethoxazole (Bactrim Ds) 1 tab BID PO Last administered on at 08:32; Start 09/30/17 at 09:00; Stop 10/04/17 at 17:32; Status DC Tramadol HCl (Ultram) 50 mg PRN Q6HRS PRN PO PAIN; Start 09/30/17 at 00:15 Non-Formulary Medication (Atorvastatin Calcium ) 5 mg QHS PO ; Start 09/30/17 at 21:00; Stop 09/30/17 at 21:00; Status DC Non-Formulary Medication (Bisacodyl ) 10 mg PRN DAILY PRN RC CONSTIPATION; Start 09/30/17 at 00:15; Stop 09/30/17 at 00:58; Status DC Non-Formulary Medication (Calcium Carbonate ) 5 ml BID AT 0600, 1800 PO ; Start 09/30/17 at 00:15; Stop 09/30/17 at 00:58; Status DC Non-Formulary Medication (Lacosamide (Vimpat)) 150 mg BID AT 0900, 1700 PO ; Start 09/30/17 at 00:15; Stop 09/30/17 at 00:58; Status DC Non-Formulary Medication (Levetiracetam (Keppra)) 750 mg BID AT 0900, 1700 PO ; Start 09/30/17 at 00:15; Stop 09/30/17 at 00:58; Status DC Non-Formulary Medication (Magnesium Oxide ) 400 mg TID AT 12/30/2099 PO ; Start 09/30/17 at 00:15; Stop 09/30/17 at 00:58; Status DC Non-Formulary Medication (Multivits,Th W-Fe,Other Min (Therems-M)) 1 tab DAILY PO ; Start 09/30/17 at 09:00; Stop 09/30/17 at 09:00; Status DC Non-Formulary Medication (Pantoprazole Sodium ) 40 mg BID PO ; Start 09/30/17 at 09:00; Stop 09/30/17 at 09:00; Status DC Non-Formulary Medication (Phenobarbital ) 64.8 mg HS PO ; Start 09/30/17 at 21: 00; Stop 09/30/17 at 21:00; Status DC Non-Formulary Medication (Polyethylene Glycol 3350 (Miralax)) 17 gm PRN DAILY PRN PO CONSTIPATION; Start 09/30/17 at 00:15; Stop 09/30/17 at 00:58; Status DC Non-Formulary Medication (Potassium Chloride ) 10 meq DAILY PO ; Start 09/30/17 at 09:00; Stop 09/30/17 at 09:00; Status DC Haloperidol (Haldol) 1 mg TIDPC PO Last administered on 10/01/17at 17:48; Start 09/30/17 at 08:30; Stop 10/01/17 at 18:14; Status DC Quetiapine Fumarate (SEROquel) 25 mg TID PO Last administered on 10/02/17at 12: 22; Start 09/30/17 at 09:00; Stop 10/02/17 at 18:09; Status DC Venlafaxine HCl (Effexor Xr) 112.5 mg DAILY PO Last administered on 10/01/17at 08:27; Start 09/30/17 at 09:00; Stop 10/01/17 at 18:14; Status DC Calcium Carbonate/ Glycine (Oscal) 1,250 mg BID66 PO Last administered on at 16:44; Start 09/30/17 at 06:00 Pantoprazole Sodium (Protonix) 40 mg BIDBFRMEAL PO Last administered on at 16:45; Start 09/30/17 at 07:30 Magnesium Oxide (Magnesium Oxide) 400 mg TID PO Last administered on 10/10/17at 19:35; Start 09/30/17 at 09:00 Atorvastatin Calcium (Lipitor) 5 mg QHS PO Last administered on 10/10/17at 19:34 ; Start 09/30/17 at 21:00 Lacosamide (Vimpat) 200 mg BIDAFTMEAL PO Last administered on 10/10/17 16:45; Start 09/30/17 at 09:00 Levetiracetam (Keppra) 750 mg BIDAFTMEAL PO Last administered on 10/10/17 16: 44; Start 09/30/17 at 09:00 Phenobarbital (Luminal) 64.8 mg QHS PO Last administered on 10/10/17 19:34; Start 09/30/17 at 21:00 Polyethylene Glycol (miraLAX) 17 gm PRN DAILY PRN PO CONSTIPATION; Start at 01:15 Bisacodyl (Dulcolax Supp) 10 mg PRN DAILY PRN [place] CONSTIPATION; Start 09/30/17 at 01:15 Trazodone HCl (Desyrel) 50 mg PRN QHS PRN PO INSOMNIA; Start 09/30/17 at 18:45 Lactobacillus Rhamnosus (Culturelle) 1 cap BID PO Last administered on 19:33; Start 10/01/17 at 21:00 Haloperidol (Haldol) 1 mg BID PO Last administered on 10/03/17at 20:45; Start at 21:00; Stop 10/03/17 at 21:01; Status DC Duloxetine HCl (Cymbalta) 30 mg DAILY PO Last administered on 10/04/17 08:31; Start 10/02/17 at 09:00; Stop 10/04/17 at 09:01; Status DC Duloxetine HCl (Cymbalta) 60 mg DAILY PO Last administered on 10/10/17at 07:26; Start 10/05/17 at 09:00 Haloperidol (Haldol) 1 mg DAILY PO Last administered on 10/05/17 08:57; Start 10/04/17 at 09:00; Stop 10/05/17 at 09:02; Status DC Quetiapine Fumarate (SEROquel) 25 mg [id number] PO Last administered on 10/10/17 19:35; Start 10/02/17 at 21:00 Divalproex Sodium (Depakote Sprinkles) 250 mg [id number] PO Last administered on 16:53; Start 10/05/17 at 09:00; Stop 6/26/18 at 18:28; Status DC Divalproex Sodium (Depakote) 375 mg BID PO Last administered on 10/10/17at 19:33 ; Start 10/08/17 at 21:00 Active Scripts Active Reported Bactrim Ds Tablet (Sulfamethoxazole/Trimethoprim) 1 Each Tablet 1 Tab PO BID X3 DAYS Miralax (Polyethylene Glycol 3350) 17 Gm Powd.pack 17 Gm PO PRN DAILY PRN Milk Of Magnesia (Magnesium Hydroxide) 2,400 Mg/10 Ml Oral.susp 2,400 Mg PO PRN DAILY PRN Venlafaxine Hcl Er (Venlafaxine Hcl) 37.5 Mg Cap.er.24h 112.5 Mg PO HS Atorvastatin Calcium 10 Mg Tablet 5 Mg PO QHS Seroquel (Quetiapine Fumarate) 25 Mg Tablet 25 Mg PO TID AT 12/28/1999 Haloperidol 1 Mg Tablet 1 Mg PO TID AT 12/26/1699 Pantoprazole Sodium 40 Mg Tablet.dr 40 Mg PO BID Vitamin D3 (Cholecalciferol (Vitamin D3)) 1,000 Unit Tablet 1,000 Unit PO DAILY Therems-M (Multivits, W-Fe,Other Min) 1 Each Tablet 1 Tab PO DAILY Potassium Chloride 10 Meq Tablet.er 10 Meq PO DAILY Levothyroxine Sodium 75 Mcg Tablet 75 Mcg PO DAILYAC Phenobarbital 64.8 Mg Tablet 64.8 Mg PO HS Calcium Carbonate 500 Mg/5 Ml Oral.susp 5 Ml PO BID AT 0600, 1800 Magnesium Oxide 400 Mg Tablet 400 Mg PO TID AT 12/30/2099 Vimpat (Lacosamide) 150 Mg Tablet 150 Mg PO BID AT 0900, 1700 Tylenol (Acetaminophen) 325 Mg Tablet 650 Mg PO PRN Q6HRS PRN Tramadol Hcl (Tramadol HCl) 50 Mg Tablet 50 Mg PO PRN Q6HRS PRN Senna-S Tablet (Sennosides/Docusate Sodium) 1 Each Tablet 1 Tab PO PRN BID PRN Keppra (Levetiracetam) 250 Mg Tablet 750 Mg PO BID AT 0900, 1700 Ferrous Sulfate 325 Mg Tablet 325 Mg PO BIDAFTMEAL Bisacodyl 10 Mg Supp.rect 10 Mg RC PRN DAILY PRN Felbamate 400 Mg Tablet 800 Mg PO TID AT 12/26/1699 I have reviewed the current psychotropics carefully including drug interactions. Risk benefit ratio favors no change other than as noted in my dictated progress note. Diagnosis: Problems: (1) Functional diarrhea (2) urinary tract infection (3) Left hip arthroplasty (4) Severe major depression with psychotic features (5) Adjustment disorder with depressed mood (6) Bipolar affective, mixed (7) Impulse control disorder (8) Dementia, vascular, with delusions (9) Dementia, vascular, with depression HARVEY QUIJANO MD Oct 10, 2017 20:52
[2017-10-11 05:50] VITALS: BP 90/57
[2017-10-11] MEDS: LEVOTHYROXINE 75 MCG TABLET PO SCH (06:05)
[2017-10-11] MEDS: CALCIUM CARBONATE 500 MG TABLET PO SCH ×2 (06:05→17:38)
[2017-10-11 07:16] LABS: HEMATOCRIT 31.7 % (36.0-47.0); HEMOGLOBIN 10.8 g/dL (12.0-15.5); RED BLOOD COUNT 3.42 x10^6/uL (3.50-5.40); RED CELL DISTRIBUTION WIDTH 13.5 % (11.5-14.5); WHITE BLOOD COUNT 3.4 x10^3/uL (4.0-11.0)
[2017-10-11 07:35] LABS: ALBUMIN 2.8 g/dL (3.4-5.0); ALBUMIN/GLOBULIN RATIO 0.9 (1.0-1.7); ALK PHOS 107 U/L (46-116); ALT (SGPT) 14 U/L (14-59); ANION GAP 2 (6-14); AST (SGOT) 13 U/L (15-37); BLOOD UREA NITROGEN 26 mg/dL (7-20); BUN/CREATININE RATIO 43 (6-20); CALCIUM 8.8 mg/dL (8.5-10.1); CARBON DIOXIDE 34 mmol/L (21-32); CHLORIDE 106 mmol/L (98-107); CREATININE 0.6 mg/dL (0.6-1.0); GFR 100.6; GLUCOSE 92 mg/dL (70-99); POTASSIUM 3.8 mmol/L (3.5-5.1); SODIUM 142 mmol/L (136-145); TOTAL BILIRUBIN 0.2 mg/dL (0.2-1.0); TOTAL PROTEIN 5.8 g/dL (6.4-8.2)
[2017-10-11 07:42] LABS: VAL ACID 38 mcg/mL (50-100)
[2017-10-11] MEDS: PANTOPRAZOLE 40 MG TABLET. PO SCH ×2 (08:15→17:37)
[2017-10-11] MEDS: FERROUS SULFATE 325 MG TABLET. PO SCH ×2 (08:15→17:37)
[2017-10-11] MEDS: QUEtiapine 25 MG TABLET. PO SCH ×4 (08:15→19:46)
[2017-10-11] MEDS: MAGNESIUM OXIDE 400 MG TABLET PO SCH ×3 (08:15→19:46)
[2017-10-11] MEDS: DULoxetine HCL 60 MG CAPSULE.DR PO SCH (08:15)
[2017-10-11] MEDS: CHOLECALCIFEROL (VITAMIN D3) 1,000 UNIT TABLET PO SCH (08:15)
[2017-10-11] MEDS: LACTOBACILLUS RHAMNOSUS GG 1 CAPSULE. PO SCH ×2 (08:15→19:45)
[2017-10-11] MEDS: levETIRAcetam 250 MG TABLET PO SCH ×2 (08:16→17:38)
[2017-10-11] MEDS: FELBAMATE 400 MG TABLET PO SCH ×3 (08:16→19:46)
[2017-10-11] MEDS: DIVALPROEX SODIUM 125 MG TABLET.DR. PO SCH ×2 (08:16→19:45)
[2017-10-11] MEDS: LACOSAMIDE 50 MG TABLET PO SCH ×2 (08:17→17:37)
[2017-10-11 15:55] VITALS: BP 106/60
[2017-10-11] MEDS: PHENobarbital 32.4 MG TABLET. PO SCH (19:45)
[2017-10-11] MEDS: ATORVASTATIN CALCIUM 10 MG TABLET. PO SCH (19:45)
--- NOTE | 2017-10-11 19:57 | PDOC ---
Exam Note: David Note: Please also refer to the separate dictated note~for this date of service dictated separately.~Patient seen individually. Discussed the patient with Nursing staff reviewed the chart.~Reviewed interim history and current functioning. Reviewed vital signs,~Labs/ Radiology~and current medications noted below. Continue current treatment with the changes noted in the dictated addendum note Assessment: Vital Signs: Vital Signs Date Time Temp Pulse Resp B/P (MAP) Pulse Ox O2 Delivery O2 Flow Rate FiO2 10/11/17 15:55 98.0 72 16 106/60 (75) 99 10/10/17 16:01 Room Air I&O Intake and Output 10/11/17 06:59 Intake Total 480 ml Balance 480 ml Intake Oral 480 ml # Voids 2 # Bowel Movements 1 Labs: Laboratory Tests Test 10/11/17 06:57 White Blood Count 3.4 x10^3/uL (4.0-11.0) L Red Blood Count 3.42 x10^6/uL (3.50-5.40) L Hemoglobin 10.8 g/dL (12.0-15.5) L Hematocrit 31.7 % (36.0-47.0) L Mean Corpuscular Volume 93 fL (79-100) Mean Corpuscular Hemoglobin 31 pg (25-35) Mean Corpuscular Hemoglobin Concent 34 g/dL (31-37) Red Cell Distribution Width 13.5 % (11.5-14.5) Platelet Count 147 x10^3/uL (140-400) Sodium Level 142 mmol/L (136-145) Potassium Level 3.8 mmol/L (3.5-5.1) Chloride Level 106 mmol/L (98-107) Carbon Dioxide Level 34 mmol/L (21-32) H Anion Gap 2 (6-14) L Blood Urea Nitrogen 26 mg/dL (7-20) H Creatinine 0.6 mg/dL (0.6-1.0) Estimated GFR (Cockcroft-Gault) 100.6 BUN/Creatinine Ratio 43 (6-20) H Glucose Level 92 mg/dL (70-99) Calcium Level 8.8 mg/dL (8.5-10.1) Total Bilirubin 0.2 mg/dL (0.2-1.0) Aspartate Amino Transferase (AST) 13 U/L (15-37) L Alanine Aminotransferase (ALT) 14 U/L (14-59) Alkaline Phosphatase 107 U/L (46-116) Total Protein 5.8 g/dL (6.4-8.2) L Albumin 2.8 g/dL (3.4-5.0) L Albumin/Globulin Ratio 0.9 (1.0-1.7) L Valproic Acid Level 38 mcg/mL (50-100) L Valproic Acid Last Dose Date 10/10/17 Valproic Acid Last Dose Time 2100 Current Medications: Meds: Current Medications Acetaminophen (Tylenol) 650 mg PRN Q6HRS PRN PO PAIN / TEMP; Start 09/29/17 at 23:15 Multi-Ingredient Ointment (Analgesic Alice) 1 vale PRN QID PRN TP MUSCLE PAIN; Start 09/29/17 at 23:15 Al Hydroxide/Mg Hydroxide (Mylanta Plus Xs) 15 ml PRN AFTMEALHC PRN PO DYSPEPSIA; Start 09/29/17 at 23:15 Magnesium Hydroxide (Milk Of Magnesia) 2,400 mg PRN QHS PRN PO CONSTIPATION; Start 09/29/17 at 23:15 Non-Formulary Medication (Haloperidol ) 1 mg TID AT 12/26/1699 PO ; Start at 00:15; Stop 09/30/17 at 00:58; Status DC Non-Formulary Medication (Quetiapine Fumarate (Seroquel)) 25 mg TID AT 1999 PO ; Start 09/30/17 at 00:15; Stop 09/30/17 at 00:58; Status DC Non-Formulary Medication (Venlafaxine Hcl (Venlafaxine Hcl Er)) 112.5 mg HS PO ; Start 09/30/17 at 21:00; Stop 09/30/17 at 21:00; Status DC Vitamin D (Vitamin D3) 1,000 unit DAILY PO Last administered on 10/11/17at 08:15 ; Start 09/30/17 at 09:00 Felbamate (Felbatol) 800 mg TID PO Last administered on 10/11/17at 19:46; Start 09/30/17 at 09:00 Ferrous Sulfate (Feosol) 325 mg BIDAFTMEAL PO Last administered on 10/11/17at 17 :37; Start 09/30/17 at 09:00 Levothyroxine Sodium (Synthroid) 75 mcg DAILY06 PO Last administered on at 06:05; Start 09/30/17 at 06:00 Senna/Docusate Sodium (Senna Plus) 1 tab PRN BID PRN PO CONSTIPATION; Start at 00:15 Trimethoprim/ Sulfamethoxazole (Bactrim Ds) 1 tab BID PO Last administered on at 08:32; Start 09/30/17 at 09:00; Stop 10/04/17 at 17:32; Status DC Tramadol HCl (Ultram) 50 mg PRN Q6HRS PRN PO PAIN; Start 09/30/17 at 00:15 Non-Formulary Medication (Atorvastatin Calcium ) 5 mg QHS PO ; Start 09/30/17 at 21:00; Stop 09/30/17 at 21:00; Status DC Non-Formulary Medication (Bisacodyl ) 10 mg PRN DAILY PRN RC CONSTIPATION; Start 09/30/17 at 00:15; Stop 09/30/17 at 00:58; Status DC Non-Formulary Medication (Calcium Carbonate ) 5 ml BID AT 0600, 1800 PO ; Start 09/30/17 at 00:15; Stop 09/30/17 at 00:58; Status DC Non-Formulary Medication (Lacosamide (Vimpat)) 150 mg BID AT 0900, 1700 PO ; Start 09/30/17 at 00:15; Stop 09/30/17 at 00:58; Status DC Non-Formulary Medication (Levetiracetam (Keppra)) 750 mg BID AT 0900, 1700 PO ; Start 09/30/17 at 00:15; Stop 09/30/17 at 00:58; Status DC Non-Formulary Medication (Magnesium Oxide ) 400 mg TID AT 12/30/2099 PO ; Start 09/30/17 at 00:15; Stop 09/30/17 at 00:58; Status DC Non-Formulary Medication (Multivits,Th W-Fe,Other Min (Therems-M)) 1 tab DAILY PO ; Start 09/30/17 at 09:00; Stop 09/30/17 at 09:00; Status DC Non-Formulary Medication (Pantoprazole Sodium ) 40 mg BID PO ; Start 09/30/17 at 09:00; Stop 09/30/17 at 09:00; Status DC Non-Formulary Medication (Phenobarbital ) 64.8 mg HS PO ; Start 09/30/17 at 21: 00; Stop 09/30/17 at 21:00; Status DC Non-Formulary Medication (Polyethylene Glycol 3350 (Miralax)) 17 gm PRN DAILY PRN PO CONSTIPATION; Start 09/30/17 at 00:15; Stop 09/30/17 at 00:58; Status DC Non-Formulary Medication (Potassium Chloride ) 10 meq DAILY PO ; Start 09/30/17 at 09:00; Stop 09/30/17 at 09:00; Status DC Haloperidol (Haldol) 1 mg TIDPC PO Last administered on 10/01/17at 17:48; Start 09/30/17 at 08:30; Stop 10/01/17 at 18:14; Status DC Quetiapine Fumarate (SEROquel) 25 mg TID PO Last administered on 10/02/17at 12: 22; Start 09/30/17 at 09:00; Stop 10/02/17 at 18:09; Status DC Venlafaxine HCl (Effexor Xr) 112.5 mg DAILY PO Last administered on 10/01/17at 08:27; Start 09/30/17 at 09:00; Stop 10/01/17 at 18:14; Status DC Calcium Carbonate/ Glycine (Oscal) 1,250 mg BID66 PO Last administered on at 17:38; Start 09/30/17 at 06:00 Pantoprazole Sodium (Protonix) 40 mg BIDBFRMEAL PO Last administered on 17:37; Start 09/30/17 at 07:30 Magnesium Oxide (Magnesium Oxide) 400 mg TID PO Last administered on 10/11/17 19:46; Start 09/30/17 at 09:00 Atorvastatin Calcium (Lipitor) 5 mg QHS PO Last administered on 10/11/17 19:45 ; Start 09/30/17 at 21:00 Lacosamide (Vimpat) 200 mg BIDAFTMEAL PO Last administered on 10/11/17 17:37; Start 09/30/17 at 09:00 Levetiracetam (Keppra) 750 mg BIDAFTMEAL PO Last administered on 10/11/17 17: 38; Start 09/30/17 at 09:00 Phenobarbital (Luminal) 64.8 mg QHS PO Last administered on 10/11/17 19:45; Start 09/30/17 at 21:00 Polyethylene Glycol (miraLAX) 17 gm PRN DAILY PRN PO CONSTIPATION; Start at 01:15 Bisacodyl (Dulcolax Supp) [address] CONSTIPATION; Start 09/30/17 at 01:15 Trazodone HCl (Desyrel) 50 mg PRN QHS PRN PO INSOMNIA; Start 09/30/17 at 18:45 Lactobacillus Rhamnosus (Culturelle) 1 cap BID PO Last administered on 19:45; Start 10/01/17 at 21:00 Haloperidol (Haldol) 1 mg BID PO Last administered on 10/03/17at 20:45; Start at 21:00; Stop 10/03/17 at 21:01; Status DC Duloxetine HCl (Cymbalta) 30 mg DAILY PO Last administered on 10/04/17at 08:31; Start 10/02/17 at 09:00; Stop 10/04/17 at 09:01; Status DC Duloxetine HCl (Cymbalta) 60 mg DAILY PO Last administered on 10/11/17 08:15; Start 10/05/17 at 09:00 Haloperidol (Haldol) 1 mg DAILY PO Last administered on 10/05/17at 08:57; Start 10/04/17 at 09:00; Stop 10/05/17 at 09:02; Status DC Quetiapine Fumarate (SEROquel) 25 mg [id number] PO Last administered on 10/11/17 19:46; Start 10/02/17 at 21:00 Divalproex Sodium (Depakote Sprinkles) 250 mg [id number] PO Last administered on at 16:53; Start 10/05/17 at 09:00; Stop 10/08/17 at 18:28; Status DC Divalproex Sodium (Depakote) 375 mg BID PO Last administered on 10/11/17at 08:16 ; Start 10/08/17 at 21:00; Stop 10/11/17 at 18:19; Status DC Divalproex Sodium (Depakote) 500 mg BID PO Last administered on 10/11/17at 19:45 ; Start 10/11/17 at 21:00 Active Scripts Active Reported Bactrim Ds Tablet (Sulfamethoxazole/Trimethoprim) 1 Each Tablet 1 Tab PO BID X3 DAYS Miralax (Polyethylene Glycol 3350) 17 Gm Powd.pack 17 Gm PO PRN DAILY PRN Milk Of Magnesia (Magnesium Hydroxide) 2,400 Mg/10 Ml Oral.susp 2,400 Mg PO PRN DAILY PRN Venlafaxine Hcl Er (Venlafaxine Hcl) 37.5 Mg Cap.er.24h 112.5 Mg PO HS Atorvastatin Calcium 10 Mg Tablet 5 Mg PO QHS Seroquel (Quetiapine Fumarate) 25 Mg Tablet 25 Mg PO TID AT 12/28/1999 Haloperidol 1 Mg Tablet 1 Mg PO TID AT 12/26/1699 Pantoprazole Sodium 40 Mg Tablet.dr 40 Mg PO BID Vitamin D3 (Cholecalciferol (Vitamin D3)) 1,000 Unit Tablet 1,000 Unit PO DAILY Therems-M (Multivits,Th W-Fe,Other Min) 1 Each Tablet 1 Tab PO DAILY Potassium Chloride 10 Meq Tablet.er 10 Meq PO DAILY Levothyroxine Sodium 75 Mcg Tablet 75 Mcg PO DAILYAC Phenobarbital 64.8 Mg Tablet 64.8 Mg PO HS Calcium Carbonate 500 Mg/5 Ml Oral.susp 5 Ml PO BID AT 0600, 1800 Magnesium Oxide 400 Mg Tablet 400 Mg PO TID AT 12/30/2099 Vimpat (Lacosamide) 150 Mg Tablet 150 Mg PO BID AT 0900, 1700 Tylenol (Acetaminophen) 325 Mg Tablet 650 Mg PO PRN Q6HRS PRN Tramadol Hcl (Tramadol HCl) 50 Mg Tablet 50 Mg PO PRN Q6HRS PRN Senna-S Tablet (Sennosides/Docusate Sodium) 1 Each Tablet 1 Tab PO PRN BID PRN Keppra (Levetiracetam) 250 Mg Tablet 750 Mg PO BID AT 0900, 1700 Ferrous Sulfate 325 Mg Tablet 325 Mg PO BIDAFTMEAL Bisacodyl 10 Mg Supp.rect 10 Mg RC PRN DAILY PRN Felbamate 400 Mg Tablet 800 Mg PO TID AT 12/26/1699 I have reviewed the current psychotropics carefully including drug interactions. Risk benefit ratio favors no change other than as noted in my dictated progress note. Diagnosis: Problems: (1) Functional diarrhea (2) urinary tract infection (3) Left hip arthroplasty (4) Severe major depression with psychotic features (5) Adjustment disorder with depressed mood (6) Bipolar affective, mixed (7) Impulse control disorder (8) Dementia, vascular, with delusions (9) Dementia, vascular, with depression HARVEY QUIJANO MD Oct 11, 2017 19:57
--- NOTE | 2017-10-11 23:54 | PN ---
DATE: 10/10/2017 PSYCHIATRIC PROGRESS NOTE This is a late entry 10/10/2017 covers elements not covered in my initial note. SUBJECTIVE: I met with the patient in the evening, staffed at a treatment team meeting with the entire team in the morning. The patient's appetite around 70%, slept 6-1/4 hours. She has been less agitated working on her crossword puzzles as I met with her. REVIEW OF SYSTEMS: Ambulation impaired, in wheelchair. No CV, , pulmonary, eye, ENT system symptoms on review. Reliability poor. MENTAL STATUS EXAM: Oriented to herself. Insight, judgment, recent memory is impaired. Language function intact. Attention span short. Mood and affect withdrawn. Speech moderate latency, often responses monosyllabic, low in volume. IMPRESSION: Bipolar 1 disorder, mixed versus depressed with history of psychotic features. Major neurocognitive disorder, Alzheimer, vascular with depression, delusions. PLAN: Continue current psychotropics. Check CBC, CMP, valproic acid level 10/11/2017. Adjust Depakote thereafter to reach therapeutic level. MAN Luis QUIJANO MD DR: LOYD/eboni JOB#: [id number] / [id number]
--- NOTE | 2017-10-12 00:04 | PN ---
DATE: 10/09/2017 PSYCHIATRIC PROGRESS NOTE This is a late entry of 10/09/2017, covers elements not covered in my initial note. SUBJECTIVE: I met with the patient in the evening. The patient slept 6-3/4 hours previous evening. Her sister has brought her some crossword puzzles and she is working on these, seemed calmer, both with this and having had her UTI treated. REVIEW OF SYSTEMS: Ambulation impaired, in wheelchair. No CV, , pulmonary, eye system symptoms on review. Reliability is poor. She is not very verbal. MENTAL STATUS EXAM: Oriented to herself. Insight, judgment, recent and remote memory, attention, concentration, fund of knowledge poor, consistent with her diagnosis. IMPRESSION: Major depressive disorder versus bipolar 1 disorder, mixed with psychotic features; major neurocognitive disorder, Alzheimer, vascular with delusion, depression. Rest unchanged. PLAN: Continue psychotropics from initial note including Keppra and phenobarbital for her seizure disorder. MAN Luis QUIJANO MD DR: LOYD/eboni JOB#: [id number] / [id number]
[2017-10-12 05:55] VITALS: BP 93/59
[2017-10-12] MEDS: CALCIUM CARBONATE 500 MG TABLET PO SCH ×2 (06:00→16:36)
[2017-10-12] MEDS: LEVOTHYROXINE 75 MCG TABLET PO SCH (06:00)
[2017-10-12] MEDS: LACOSAMIDE 50 MG TABLET PO SCH ×2 (08:07→16:36)
[2017-10-12] MEDS: DULoxetine HCL 60 MG CAPSULE.DR PO SCH (08:07)
[2017-10-12] MEDS: PANTOPRAZOLE 40 MG TABLET. PO SCH ×2 (08:07→16:36)
[2017-10-12] MEDS: FERROUS SULFATE 325 MG TABLET. PO SCH ×2 (08:07→16:38)
[2017-10-12] MEDS: QUEtiapine 25 MG TABLET. PO SCH ×4 (08:07→19:52)
[2017-10-12] MEDS: LACTOBACILLUS RHAMNOSUS GG 1 CAPSULE. PO SCH ×2 (08:07→19:53)
[2017-10-12] MEDS: CHOLECALCIFEROL (VITAMIN D3) 1,000 UNIT TABLET PO SCH (08:08)
[2017-10-12] MEDS: DIVALPROEX SODIUM 125 MG TABLET.DR. PO SCH ×2 (08:08→19:52)
[2017-10-12] MEDS: MAGNESIUM OXIDE 400 MG TABLET PO SCH ×3 (08:08→16:36)
[2017-10-12] MEDS: levETIRAcetam 250 MG TABLET PO SCH ×2 (08:08→16:36)
[2017-10-12] MEDS: FELBAMATE 400 MG TABLET PO SCH ×3 (08:09→16:35)
[2017-10-12 16:14] VITALS: BP 99/67
[2017-10-12] MEDS: ATORVASTATIN CALCIUM 10 MG TABLET. PO SCH (19:52)
[2017-10-12] MEDS: PHENobarbital 32.4 MG TABLET. PO SCH (19:53)
--- NOTE | 2017-10-12 22:26 | PDOC ---
Exam Note: David Note: Please also refer to the separate dictated note~for this date of service dictated separately.~Patient seen individually. Discussed the patient with Nursing staff reviewed the chart.~Reviewed interim history and current functioning. Reviewed vital signs,~Labs/ Radiology~and current medications noted below. Continue current treatment with the changes noted in the dictated addendum note Assessment: Vital Signs: Vital Signs Date Time Temp Pulse Resp B/P (MAP) Pulse Ox O2 Delivery O2 Flow Rate FiO2 10/12/17 16:14 97.8 67 18 99/67 (78) 97 10/10/17 16:01 Room Air I&O Intake and Output 10/12/17 06:59 Intake Total 360 ml Balance 360 ml Intake Oral 360 ml # Voids 2 # Bowel Movements 1 Current Medications: Meds: Current Medications Acetaminophen (Tylenol) 650 mg PRN Q6HRS PRN PO PAIN / TEMP; Start 09/29/17 at 23:15 Multi-Ingredient Ointment (Analgesic Bryant) 1 vale PRN QID PRN TP MUSCLE PAIN; Start 09/29/17 at 23:15 Al Hydroxide/Mg Hydroxide (Mylanta Plus Xs) 15 ml PRN AFTMEALHC PRN PO DYSPEPSIA; Start 09/29/17 at 23:15 Magnesium Hydroxide (Milk Of Magnesia) 2,400 mg PRN QHS PRN PO CONSTIPATION; Start 09/29/17 at 23:15 Non-Formulary Medication (Haloperidol ) 1 mg TID AT 12/26/1699 PO ; Start at 00:15; Stop 09/30/17 at 00:58; Status DC Non-Formulary Medication (Quetiapine Fumarate (Seroquel)) 25 mg TID AT 1999 PO ; Start 09/30/17 at 00:15; Stop 09/30/17 at 00:58; Status DC Non-Formulary Medication (Venlafaxine Hcl (Venlafaxine Hcl Er)) 112.5 mg HS PO ; Start 09/30/17 at 21:00; Stop 09/30/17 at 21:00; Status DC Vitamin D (Vitamin D3) 1,000 unit DAILY PO Last administered on 10/12/17at 08:08 ; Start 09/30/17 at 09:00 Felbamate (Felbatol) 800 mg TID PO Last administered on 10/12/17 16:35; Start 09/30/17 at 09:00 Ferrous Sulfate (Feosol) 325 mg BIDAFTMEAL PO Last administered on 10/12/17 16 :38; Start 09/30/17 at 09:00 Levothyroxine Sodium (Synthroid) 75 mcg DAILY06 PO Last administered on 06:00; Start 09/30/17 at 06:00 Senna/Docusate Sodium (Senna Plus) 1 tab PRN BID PRN PO CONSTIPATION; Start at 00:15 Trimethoprim/ Sulfamethoxazole (Bactrim Ds) 1 tab BID PO Last administered on 08:32; Start 09/30/17 at 09:00; Stop 10/04/17 at 17:32; Status DC Tramadol HCl (Ultram) 50 mg PRN Q6HRS PRN PO PAIN; Start 09/30/17 at 00:15 Non-Formulary Medication (Atorvastatin Calcium ) 5 mg QHS PO ; Start 09/30/17 at 21:00; Stop 09/30/17 at 21:00; Status DC Non-Formulary Medication (Bisacodyl ) 10 mg PRN DAILY PRN RC CONSTIPATION; Start 09/30/17 at 00:15; Stop 09/30/17 at 00:58; Status DC Non-Formulary Medication (Calcium Carbonate ) 5 ml BID AT 0600, 1800 PO ; Start 09/30/17 at 00:15; Stop 09/30/17 at 00:58; Status DC Non-Formulary Medication (Lacosamide (Vimpat)) 150 mg BID AT 0900, 1700 PO ; Start 09/30/17 at 00:15; Stop 09/30/17 at 00:58; Status DC Non-Formulary Medication (Levetiracetam (Keppra)) 750 mg BID AT 0900, 1700 PO ; Start 09/30/17 at 00:15; Stop 09/30/17 at 00:58; Status DC Non-Formulary Medication (Magnesium Oxide ) 400 mg TID AT 12/30/2099 PO ; Start 09/30/17 at 00:15; Stop 09/30/17 at 00:58; Status DC Non-Formulary Medication (Multivits,Th W-Fe,Other Min (Therems-M)) 1 tab DAILY PO ; Start 09/30/17 at 09:00; Stop 09/30/17 at 09:00; Status DC Non-Formulary Medication (Pantoprazole Sodium ) 40 mg BID PO ; Start 09/30/17 at 09:00; Stop 09/30/17 at 09:00; Status DC Non-Formulary Medication (Phenobarbital ) 64.8 mg HS PO ; Start 09/30/17 at 21: 00; Stop 09/30/17 at 21:00; Status DC Non-Formulary Medication (Polyethylene Glycol 3350 (Miralax)) 17 gm PRN DAILY PRN PO CONSTIPATION; Start 09/30/17 at 00:15; Stop 09/30/17 at 00:58; Status DC Non-Formulary Medication (Potassium Chloride ) 10 meq DAILY PO ; Start 09/30/17 at 09:00; Stop 09/30/17 at 09:00; Status DC Haloperidol (Haldol) 1 mg TIDPC PO Last administered on 10/01/17at 17:48; Start 09/30/17 at 08:30; Stop 10/01/17 at 18:14; Status DC Quetiapine Fumarate (SEROquel) 25 mg TID PO Last administered on 10/02/17at 12: 22; Start 09/30/17 at 09:00; Stop 10/02/17 at 18:09; Status DC Venlafaxine HCl (Effexor Xr) 112.5 mg DAILY PO Last administered on 10/01/17at 08:27; Start 09/30/17 at 09:00; Stop 10/01/17 at 18:14; Status DC Calcium Carbonate/ Glycine (Oscal) 1,250 mg BID66 PO Last administered on at 16:36; Start 09/30/17 at 06:00 Pantoprazole Sodium (Protonix) 40 mg BIDBFRMEAL PO Last administered on 16:36; Start 09/30/17 at 07:30 Magnesium Oxide (Magnesium Oxide) 400 mg TID PO Last administered on 10/12/17 16:36; Start 09/30/17 at 09:00 Atorvastatin Calcium (Lipitor) 5 mg QHS PO Last administered on 10/12/17at 19:52 ; Start 09/30/17 at 21:00 Lacosamide (Vimpat) 200 mg BIDAFTMEAL PO Last administered on 10/12/17 16:36; Start 09/30/17 at 09:00 Levetiracetam (Keppra) 750 mg BIDAFTMEAL PO Last administered on 10/12/17 16: 36; Start 09/30/17 at 09:00 Phenobarbital (Luminal) 64.8 mg QHS PO Last administered on 10/12/17 19:53; Start 09/30/17 at 21:00 Polyethylene Glycol (miraLAX) 17 gm PRN DAILY PRN PO CONSTIPATION; Start at 01:15 Bisacodyl (Dulcolax Supp) 10 mg PRN DAILY PRN [place] CONSTIPATION; Start 09/30/17 at 01:15 Trazodone HCl (Desyrel) 50 mg PRN QHS PRN PO INSOMNIA; Start 09/30/17 at 18:45 Lactobacillus Rhamnosus (Culturelle) 1 cap BID PO Last administered on 19:53; Start 10/01/17 at 21:00 Haloperidol (Haldol) 1 mg BID PO Last administered on 10/03/17 20:45; Start at 21:00; Stop 10/03/17 at 21:01; Status DC Duloxetine HCl (Cymbalta) 30 mg DAILY PO Last administered on 10/04/17 08:31; Start 10/02/17 at 09:00; Stop 10/04/17 at 09:01; Status DC Duloxetine HCl (Cymbalta) 60 mg DAILY PO Last administered on 10/12/17 08:07; Start 10/05/17 at 09:00 Haloperidol (Haldol) 1 mg DAILY PO Last administered on 10/05/17 08:57; Start 10/04/17 at 09:00; Stop 10/05/17 at 09:02; Status DC Quetiapine Fumarate (SEROquel) 25 mg [id number] PO Last administered on 10/12/17 19:52; Start 10/02/17 at 21:00 Divalproex Sodium (Depakote Sprinkles) 250 mg BID94 PO Last administered on at 16:53; Start 10/05/17 at 09:00; Stop 10/08/17 at 18:28; Status DC Divalproex Sodium (Depakote) 375 mg BID PO Last administered on 10/11/17at 08:16 ; Start 10/08/17 at 21:00; Stop 10/11/17 at 18:19; Status DC Divalproex Sodium (Depakote) 500 mg BID PO Last administered on 10/12/17at 19:52 ; Start 10/11/17 at 21:00 Active Scripts Active Reported Bactrim Ds Tablet (Sulfamethoxazole/Trimethoprim) 1 Each Tablet 1 Tab PO BID X3 DAYS Miralax (Polyethylene Glycol 3350) 17 Gm Powd.pack 17 Gm PO PRN DAILY PRN Milk Of Magnesia (Magnesium Hydroxide) 2,400 Mg/10 Ml Oral.susp 2,400 Mg PO PRN DAILY PRN Venlafaxine Hcl Er (Venlafaxine Hcl) 37.5 Mg Cap.er.24h 112.5 Mg PO HS Atorvastatin Calcium 10 Mg Tablet 5 Mg PO QHS Seroquel (Quetiapine Fumarate) 25 Mg Tablet 25 Mg PO TID AT 12/28/1999 Haloperidol 1 Mg Tablet 1 Mg PO TID AT 12/26/1699 Pantoprazole Sodium 40 Mg Tablet.dr 40 Mg PO BID Vitamin D3 (Cholecalciferol (Vitamin D3)) 1,000 Unit Tablet 1,000 Unit PO DAILY Therems-M (Multivits, W-Fe,Other Min) 1 Each Tablet 1 Tab PO DAILY Potassium Chloride 10 Meq Tablet.er 10 Meq PO DAILY Levothyroxine Sodium 75 Mcg Tablet 75 Mcg PO DAILYAC Phenobarbital 64.8 Mg Tablet 64.8 Mg PO HS Calcium Carbonate 500 Mg/5 Ml Oral.susp 5 Ml PO BID AT 0600, 1800 Magnesium Oxide 400 Mg Tablet 400 Mg PO TID AT 12/30/2099 Vimpat (Lacosamide) 150 Mg Tablet 150 Mg PO BID AT 0900, 1700 Tylenol (Acetaminophen) 325 Mg Tablet 650 Mg PO PRN Q6HRS PRN Tramadol Hcl (Tramadol HCl) 50 Mg Tablet 50 Mg PO PRN Q6HRS PRN Senna-S Tablet (Sennosides/Docusate Sodium) 1 Each Tablet 1 Tab PO PRN BID PRN Keppra (Levetiracetam) 250 Mg Tablet 750 Mg PO BID AT 0900, 1700 Ferrous Sulfate 325 Mg Tablet 325 Mg PO BIDAFTMEAL Bisacodyl 10 Mg Supp.rect 10 Mg RC PRN DAILY PRN Felbamate 400 Mg Tablet 800 Mg PO TID AT 12/26/1699 I have reviewed the current psychotropics carefully including drug interactions. Risk benefit ratio favors no change other than as noted in my dictated progress note. Diagnosis: Problems: (1) Severe major depression with psychotic features (2) Adjustment disorder with depressed mood (3) Bipolar affective, mixed (4) Impulse control disorder (5) Dementia, vascular, with delusions (6) Dementia, vascular, with depression HARVEY QUIJANO MD Oct 12, 2017 22:26
[2017-10-13 06:05] VITALS: BP 93/60
[2017-10-13] MEDS: LEVOTHYROXINE 75 MCG TABLET PO SCH (06:17)
[2017-10-13] MEDS: CALCIUM CARBONATE 500 MG TABLET PO SCH ×2 (06:18→08:45)
[2017-10-13] MEDS: DULoxetine HCL 60 MG CAPSULE.DR PO SCH (08:40)
[2017-10-13] MEDS: PANTOPRAZOLE 40 MG TABLET. PO SCH ×2 (08:40→17:13)
[2017-10-13] MEDS: DIVALPROEX SODIUM 125 MG TABLET.DR. PO SCH ×2 (08:40→20:51)
[2017-10-13] MEDS: LACTOBACILLUS RHAMNOSUS GG 1 CAPSULE. PO SCH ×2 (08:40→20:51)
[2017-10-13] MEDS: FELBAMATE 400 MG TABLET PO SCH ×3 (08:42→20:50)
[2017-10-13] MEDS: FERROUS SULFATE 325 MG TABLET. PO SCH ×2 (08:43→17:14)
[2017-10-13] MEDS: levETIRAcetam 250 MG TABLET PO SCH ×2 (08:43→17:14)
[2017-10-13] MEDS: CHOLECALCIFEROL (VITAMIN D3) 1,000 UNIT TABLET PO SCH (08:43)
[2017-10-13] MEDS: MAGNESIUM OXIDE 400 MG TABLET PO SCH ×3 (08:43→20:52)
[2017-10-13] MEDS: QUEtiapine 25 MG TABLET. PO SCH ×4 (08:43→20:51)
[2017-10-13] MEDS: LACOSAMIDE 50 MG TABLET PO SCH ×2 (08:45→17:14)
[2017-10-13 16:19] VITALS: BP 94/61
[2017-10-13] MEDS: PHENobarbital 32.4 MG TABLET. PO SCH (20:50)
[2017-10-13] MEDS: ATORVASTATIN CALCIUM 10 MG TABLET. PO SCH (20:52)
--- NOTE | 2017-10-13 20:58 | PDOC ---
Exam Note: David Note: Please also refer to the separate dictated note~for this date of service dictated separately.~Patient seen individually. Discussed the patient with Nursing staff reviewed the chart.~Reviewed interim history and current functioning. Reviewed vital signs,~Labs/ Radiology~and current medications noted below. Continue current treatment with the changes noted in the dictated addendum note Assessment: Vital Signs: Vital Signs Date Time Temp Pulse Resp B/P (MAP) Pulse Ox O2 Delivery O2 Flow Rate FiO2 10/13/17 16:19 97.4 71 18 94/61 (72) 97 10/13/17 06:05 Room Air I&O Intake and Output 10/13/17 07:00 Intake Total 360 ml Balance 360 ml Intake Oral 360 ml # Voids 2 # Bowel Movements 2 Current Medications: Meds: Current Medications Acetaminophen (Tylenol) 650 mg PRN Q6HRS PRN PO PAIN / TEMP; Start 09/29/17 at 23:15 Multi-Ingredient Ointment (Analgesic Carmen) 1 vale PRN QID PRN TP MUSCLE PAIN; Start 09/29/17 at 23:15 Al Hydroxide/Mg Hydroxide (Mylanta Plus Xs) 15 ml PRN AFTMEALHC PRN PO DYSPEPSIA; Start 09/29/17 at 23:15 Magnesium Hydroxide (Milk Of Magnesia) 2,400 mg PRN QHS PRN PO CONSTIPATION; Start 09/29/17 at 23:15 Non-Formulary Medication (Haloperidol ) 1 mg TID AT 12/26/1699 PO ; Start at 00:15; Stop 09/30/17 at 00:58; Status DC Non-Formulary Medication (Quetiapine Fumarate (Seroquel)) 25 mg TID AT 1999 PO ; Start 09/30/17 at 00:15; Stop 09/30/17 at 00:58; Status DC Non-Formulary Medication (Venlafaxine Hcl (Venlafaxine Hcl Er)) 112.5 mg HS PO ; Start 09/30/17 at 21:00; Stop 09/30/17 at 21:00; Status DC Vitamin D (Vitamin D3) 1,000 unit DAILY PO Last administered on 10/13/17at 08:43 ; Start 09/30/17 at 09:00 Felbamate (Felbatol) 800 mg TID PO Last administered on 10/13/17at 20:50; Start 09/30/17 at 09:00 Ferrous Sulfate (Feosol) 325 mg BIDAFTMEAL PO Last administered on 10/13/17 17: 14; Start 09/30/17 at 09:00 Levothyroxine Sodium (Synthroid) 75 mcg DAILY06 PO Last administered on at 06:17; Start 09/30/17 at 06:00 Senna/Docusate Sodium (Senna Plus) 1 tab PRN BID PRN PO CONSTIPATION; Start at 00:15 Trimethoprim/ Sulfamethoxazole (Bactrim Ds) 1 tab BID PO Last administered on at 08:32; Start 09/30/17 at 09:00; Stop 10/04/17 at 17:32; Status DC Tramadol HCl (Ultram) 50 mg PRN Q6HRS PRN PO PAIN; Start 09/30/17 at 00:15 Non-Formulary Medication (Atorvastatin Calcium ) 5 mg QHS PO ; Start 09/30/17 at 21:00; Stop 09/30/17 at 21:00; Status DC Non-Formulary Medication (Bisacodyl ) 10 mg PRN DAILY PRN RC CONSTIPATION; Start 09/30/17 at 00:15; Stop 09/30/17 at 00:58; Status DC Non-Formulary Medication (Calcium Carbonate ) 5 ml BID AT 0600, 1800 PO ; Start 09/30/17 at 00:15; Stop 09/30/17 at 00:58; Status DC Non-Formulary Medication (Lacosamide (Vimpat)) 150 mg BID AT 0900, 1700 PO ; Start 09/30/17 at 00:15; Stop 09/30/17 at 00:58; Status DC Non-Formulary Medication (Levetiracetam (Keppra)) 750 mg BID AT 0900, 1700 PO ; Start 09/30/17 at 00:15; Stop 09/30/17 at 00:58; Status DC Non-Formulary Medication (Magnesium Oxide ) 400 mg TID AT 12/30/2099 PO ; Start 09/30/17 at 00:15; Stop 09/30/17 at 00:58; Status DC Non-Formulary Medication (Multivits,Th W-Fe,Other Min (Therems-M)) 1 tab DAILY PO ; Start 09/30/17 at 09:00; Stop 09/30/17 at 09:00; Status DC Non-Formulary Medication (Pantoprazole Sodium ) 40 mg BID PO ; Start 09/30/17 at 09:00; Stop 09/30/17 at 09:00; Status DC Non-Formulary Medication (Phenobarbital ) 64.8 mg HS PO ; Start 09/30/17 at 21: 00; Stop 09/30/17 at 21:00; Status DC Non-Formulary Medication (Polyethylene Glycol 3350 (Miralax)) 17 gm PRN DAILY PRN PO CONSTIPATION; Start 09/30/17 at 00:15; Stop 09/30/17 at 00:58; Status DC Non-Formulary Medication (Potassium Chloride ) 10 meq DAILY PO ; Start 09/30/17 at 09:00; Stop 09/30/17 at 09:00; Status DC Haloperidol (Haldol) 1 mg TIDPC PO Last administered on 10/01/17at 17:48; Start 09/30/17 at 08:30; Stop 10/01/17 at 18:14; Status DC Quetiapine Fumarate (SEROquel) 25 mg TID PO Last administered on 10/02/17at 12: 22; Start 09/30/17 at 09:00; Stop 10/02/17 at 18:09; Status DC Venlafaxine HCl (Effexor Xr) 112.5 mg DAILY PO Last administered on 10/01/17at 08:27; Start 09/30/17 at 09:00; Stop 10/01/17 at 18:14; Status DC Calcium Carbonate/ Glycine (Oscal) 1,250 mg BID66 PO Last administered on at 08:45; Start 09/30/17 at 06:00 Pantoprazole Sodium (Protonix) 40 mg BIDBFRMEAL PO Last administered on at 17:13; Start 09/30/17 at 07:30 Magnesium Oxide (Magnesium Oxide) 400 mg TID PO Last administered on 10/13/17 20:52; Start 09/30/17 at 09:00 Atorvastatin Calcium (Lipitor) 5 mg QHS PO Last administered on 10/13/17at 20:52 ; Start 09/30/17 at 21:00 Lacosamide (Vimpat) 200 mg BIDAFTMEAL PO Last administered on 10/13/17 17:14; Start 09/30/17 at 09:00 Levetiracetam (Keppra) 750 mg BIDAFTMEAL PO Last administered on 10/13/17 17:14 ; Start 09/30/17 at 09:00 Phenobarbital (Luminal) 64.8 mg QHS PO Last administered on 10/13/17 20:50; Start 09/30/17 at 21:00 Polyethylene Glycol (miraLAX) 17 gm PRN DAILY PRN PO CONSTIPATION; Start at 01:15 Bisacodyl (Dulcolax Supp) 10 mg PRN DAILY PRN DC CONSTIPATION; Start 09/30/17 at 01:15 Trazodone HCl (Desyrel) 50 mg PRN QHS PRN PO INSOMNIA; Start 09/30/17 at 18:45 Lactobacillus Rhamnosus (Culturelle) 1 cap BID PO Last administered on 20:51; Start 10/01/17 at 21:00 Haloperidol (Haldol) 1 mg BID PO Last administered on 10/03/17at 20:45; Start at 21:00; Stop 10/03/17 at 21:01; Status DC Duloxetine HCl (Cymbalta) 30 mg DAILY PO Last administered on 10/04/17at 08:31; Start 10/02/17 at 09:00; Stop 10/04/17 at 09:01; Status DC Duloxetine HCl (Cymbalta) 60 mg DAILY PO Last administered on 10/13/17at 08:40; Start 10/05/17 at 09:00 Haloperidol (Haldol) 1 mg DAILY PO Last administered on 10/05/17 08:57; Start 10/04/17 at 09:00; Stop 10/05/17 at 09:02; Status DC Quetiapine Fumarate (SEROquel) 25 mg [id number] PO Last administered on 10/13/17 20:51; Start 10/02/17 at 21:00 Divalproex Sodium (Depakote Sprinkles) 250 mg [id number] PO Last administered on at 16:53; Start 10/05/17 at 09:00; Stop 10/08/17 at 18:28; Status DC Divalproex Sodium (Depakote) 375 mg BID PO Last administered on 10/11/17at 08:16 ; Start 10/08/17 at 21:00; Stop 10/11/17 at 18:19; Status DC Divalproex Sodium (Depakote) 500 mg BID PO Last administered on 10/13/17at 20:51 ; Start 10/11/17 at 21:00 Active Scripts Active Reported Bactrim Ds Tablet (Sulfamethoxazole/Trimethoprim) 1 Each Tablet 1 Tab PO BID X3 DAYS Miralax (Polyethylene Glycol 3350) 17 Gm Powd.pack 17 Gm PO PRN DAILY PRN Milk Of Magnesia (Magnesium Hydroxide) 2,400 Mg/10 Ml Oral.susp 2,400 Mg PO PRN DAILY PRN Venlafaxine Hcl Er (Venlafaxine Hcl) 37.5 Mg Cap.er.24h 112.5 Mg PO HS Atorvastatin Calcium 10 Mg Tablet 5 Mg PO QHS Seroquel (Quetiapine Fumarate) 25 Mg Tablet 25 Mg PO TID AT 12/28/1999 Haloperidol 1 Mg Tablet 1 Mg PO TID AT 12/26/1699 Pantoprazole Sodium 40 Mg Tablet.dr 40 Mg PO BID Vitamin D3 (Cholecalciferol (Vitamin D3)) 1,000 Unit Tablet 1,000 Unit PO DAILY Therems-M (Multivits, W-Fe,Other Min) 1 Each Tablet 1 Tab PO DAILY Potassium Chloride 10 Meq Tablet.er 10 Meq PO DAILY Levothyroxine Sodium 75 Mcg Tablet 75 Mcg PO DAILYAC Phenobarbital 64.8 Mg Tablet 64.8 Mg PO HS Calcium Carbonate 500 Mg/5 Ml Oral.susp 5 Ml PO BID AT 0600, 1800 Magnesium Oxide 400 Mg Tablet 400 Mg PO TID AT 12/30/2099 Vimpat (Lacosamide) 150 Mg Tablet 150 Mg PO BID AT 0900, 1700 Tylenol (Acetaminophen) 325 Mg Tablet 650 Mg PO PRN Q6HRS PRN Tramadol Hcl (Tramadol HCl) 50 Mg Tablet 50 Mg PO PRN Q6HRS PRN Senna-S Tablet (Sennosides/Docusate Sodium) 1 Each Tablet 1 Tab PO PRN BID PRN Keppra (Levetiracetam) 250 Mg Tablet 750 Mg PO BID AT 0900, 1700 Ferrous Sulfate 325 Mg Tablet 325 Mg PO BIDAFTMEAL Bisacodyl 10 Mg Supp.rect 10 Mg RC PRN DAILY PRN Felbamate 400 Mg Tablet 800 Mg PO TID AT 12/26/1699 I have reviewed the current psychotropics carefully including drug interactions. Risk benefit ratio favors no change other than as noted in my dictated progress note. Diagnosis: Problems: (1) Functional diarrhea (2) urinary tract infection (3) Left hip arthroplasty (4) Severe major depression with psychotic features (5) Adjustment disorder with depressed mood (6) Bipolar affective, mixed (7) Impulse control disorder (8) Dementia, vascular, with delusions (9) Dementia, vascular, with depression HARVEY QUIJANO MD Oct 13, 2017 20:58
--- NOTE | 2017-10-14 00:02 | PN ---
DATE: 10/11/2017 PSYCHIATRIC PROGRESS NOTE This is a late entry 10/11/2017, covers elements not covered in my initial note. SUBJECTIVE: I met with the patient evening of 10/11/2017. The patient slept 8 hours previous evening, somewhat irritable, sarcastic at times, refusing medications. REVIEW OF SYSTEMS: Ambulation impaired, in wheelchair. No CV, , pulmonary, eye, ENT system symptoms on review. MENTAL STATUS EXAM: Oriented to herself and situation. Speech moderate latency, often responses monosyllabic. Abstraction fair, computation impaired, language function intact, attention span short. Mood and affect remain somewhat labile. LABORATORY DATA: Reviewed. IMPRESSION: Unchanged from initial note. PLAN: Valproic acid level is 38, on Depakote 375 b.i.d. We will increase this to 500 mg b.i.d. Check CBC, CMP, valproic acid level in 3 days. Rest unchanged from initial note. HARVEY QUIJANO MD DR: LOYD/eboni JOB#: [id number] / [id number]
--- NOTE | 2017-10-14 00:05 | PN ---
DATE: 10/13/2017 PSYCHIATRIC PROGRESS NOTE This note covers elements not covered in my initial note 10/13/2017. SUBJECTIVE: I met with the patient in the evening of 10/13/2017. Per nursing report, the patient slept 9-1/4 hours previous evening. She is somewhat resistive to medications, but less irritable, less labile. REVIEW OF SYSTEMS: Ambulation impaired, in wheelchair. No CV, , pulmonary, eye, ENT system symptoms on review. MENTAL STATUS EXAM: Oriented to herself and situation. Speech has some latency, coherent, often responses monosyllabic. Abstraction fair, computation impaired, language function intact, attention span short. Mood and affect less labile and irritable. LABORATORY DATA: Labs to be repeated on 10/14/2017. IMPRESSION: Unchanged from initial note. PLAN: Continue current psychotropics. Repeat valproic acid level on 10/14/2017 and adjust further. MAN Luis QUIJANO MD DR: LOYD/eboni JOB#: [id number] / [id number]
--- NOTE | 2017-10-14 00:12 | PN ---
DATE: 10/12/2017 This is a late entry, 10/12/2017, covers the elements not covered in my initial note. SUBJECTIVE: I met with the patient evening of 10/12/2017. The patient slept 7 hours the previous evening, compliant with medications, irritable, isolated, sarcastic at times, but improved from before. REVIEW OF SYSTEMS: No CV, , pulmonary, eye, ENT system symptoms on review. Reliability poor. MENTAL STATUS EXAM: Oriented to herself and situation. Speech moderate latency, often response is monosyllabic. Abstraction fair, computation impaired, language function intact. Mood and affect remained somewhat withdrawn. LABORATORY DATA: Reviewed. IMPRESSION: Unchanged from initial note. PLAN: Continue psychotropics from initial note. Repeat valproic acid level and labs for the Depakote before adjusting further. MAN Luis QUIJANO MD DR: LOYD/eboni JOB#: [id number] / [id number]
--- NOTE | 2017-10-14 01:29 | PN ---
DATE: 10/07/2017 SUBJECTIVE: The patient denies any recurrent seizures since admission. She denies any other new medical complaints. OBJECTIVE: GENERAL: Well-developed, well-nourished white female, not in acute distress. VITAL SIGNS: Blood pressure 103/52, respiratory rate 18, pulse is 84 regular, temperature 98.5, and oxygen saturation 98% on room air. HEENT: Normocephalic, atraumatic, otherwise unremarkable. NECK: Supple. Negative for carotid bruit, lymphadenopathy or thyromegaly. LUNGS: Clear to A and P. CARDIOVASCULAR: Regular rate and rhythm, normal S1, S2. There is no S3, S4, or murmur. ABDOMEN: Soft. Bowel sounds positive. EXTREMITIES: Negative for cyanosis, clubbing or pitting edema. NEUROLOGICAL EXAM: Mental Status: The patient is alert and disoriented to time. Speech is fluent, but slow. There is no language dysfunction. Cranial nerves are grossly intact. No focal muscle bulk was seen. The strength was 4/5 throughout. Sensory examination revealed normal pinprick and light touch senses throughout. Deep tendon reflexes were symmetric and hypoactive with absent Achilles responses. Gait: The patient refused to stand up and walk. LABORATORY DATA: CBC revealed white blood cells of 3500, hemoglobin 10.9, hematocrit 32.1, platelet count 168,000. Chemistry revealed a sodium of 142, potassium 3.8, chloride 107, CO2 of 34, BUN 30, creatinine 0.6, glucose is 88, calcium 8.6. Vitamin B12 is low at 263. Vitamin D is 37.6, with a normal free T4. IMPRESSION: 1. A longstanding history of seizure disorder. Currently, she is stable on anticonvulsants. 2. Multiple psychiatric problems, anxiety, dementia, and depression. 3. Multiple medical problems include dehydration/renal insufficiency, gastroesophageal reflux disease, urinary tract infections, and vitamin B12 deficiency. RECOMMENDATIONS: 1. Continue with current medical and psychiatric care. 2. Vitamin B12 supplements. 3. Physical therapy as tolerated. . M Fabi MONTIEL MD DR: MURALI/eboni JOB#: [id number] / [id number]
--- NOTE | 2017-10-14 01:38 | PN ---
DATE: 10/11/2017 SUBJECTIVE: The patient denies any new medical or neurological complaints. She has not had any recurrent seizures since admission; however, the patient has been less agitated. OBJECTIVE: GENERAL: Well-developed, well-nourished right-handed female, not in acute distress. VITAL SIGNS: Blood pressure 106/60, respiratory rate 16, pulse is 72, temperature 98 and oxygen saturation 99% on room air. HEENT: Normocephalic, atraumatic, otherwise unremarkable. NECK: Supple, negative for carotid bruit, lymphadenopathy or thyromegaly. LUNGS: Clear to A and P. CARDIOVASCULAR: Regular rhythm, normal S1, S2. ABDOMEN: Soft. Bowel sounds positive. EXTREMITIES: Negative for cyanosis, clubbing or pitting edema. NEUROLOGICAL EXAM: Mental Status: The patient is alert and oriented to herself and place. She is disoriented to time. Speech is slow, but coherent. There is no language dysfunction. Memory, judgment, and abstract thinking are fair. The patient denies hallucinations or delusions. Cranial nerves are grossly intact. No focal motor or sensory deficit. Deep tendon reflexes are symmetric and active with absent acute responses. Sensory examination revealed normal pinprick and light touch senses throughout. Gait: The patient stays in the chair all the time, but she is able to stand up and walk a few steps in the room. LABORATORY DATA: CBC reveals white blood cells of 3.4 thousands, hemoglobin 10.8, hematocrit 31.7 and platelet count 147,000. Chemistry revealed sodium of 142, potassium 3.8, chloride 106, CO2 of 34, BUN 26, creatinine 0.6, glucose 92 and calcium is 8.8. Valproic acid is low at 38 from today. IMPRESSION: 1. History of seizure disorder, no recurrence since admission. 2. Multiple psychiatric problems including dementia, depression and anxiety. 3. Multiple medical problems include gastroesophageal reflux disease, renal insufficiency, history of urinary tract infections, history of subdural hematoma may have contributed to the current ones in the past. RECOMMENDATIONS: 1. Continue with current medical and psychiatric care. 2. Physical therapy as tolerated. M Fabi MONTIEL MD DR: MURALI/eboni JOB#: [id number] / [id number]
--- NOTE | 2017-10-14 01:55 | PN ---
DATE: 10/13/2017 SUBJECTIVE: The patient denies any new medical or neurological complaints. She has not had any recurrent seizures since admission. The patient has been less agitated. She is more cooperative. OBJECTIVE: GENERAL: Well-developed, well-nourished female, not in any acute distress. VITAL SIGNS: Blood pressure 93/60, respiratory rate 20, pulse is 73, oxygen saturation is 97% on room air and temperature is 97.5. HEENT: Normocephalic, atraumatic, otherwise unremarkable. NECK: Supple. Negative for carotid bruit, lymphadenopathy or thyromegaly. LUNGS: Clear to A and P. CARDIOVASCULAR: Regular rhythm. Normal S1, S2. ABDOMEN: Soft. Bowel sounds positive. EXTREMITIES: Negative for cyanosis, clubbing or pitting edema. NEUROLOGICAL EXAMINATION: Mental Status, the patient is alert and oriented to herself. She is not oriented to time and place and to date. She is busy with a puzzle. Cranial nerves, pupils are reactive to light and accommodation. The extraocular movements are intact. There is no nystagmus. There is no facial, motor or sensory deficit. Motor examination revealed no focal muscle bulk was seen. The tone is normal. The strength is 4/5 throughout. The sensory examination revealed normal pinprick and light touch senses throughout. Deep tendon reflexes were symmetric and hypoactive with absent Achilles responses. Gait, the patient is able to stand up, but she is unsteady. ____ IMPRESSION: 1. History of subdural hematoma and seizure disorder, which have been stable since admission. 2. Multiple psychiatric problems to include depressions, dementia, anxiety disorder. 3. Multiple medical problems to include gastroesophageal reflux disease and a history of urinary tract infections. RECOMMENDATION: We will continue with current medical and psychiatric care. The patient is neurologically stable. M Fabi MONTIEL MD DR: MURALI/eboni JOB#: [id number] / [id number]
[2017-10-14] MEDS ORDERED: CALC500T13 PO (02:09)
[2017-10-14] MEDS ORDERED: DIVA-53 PO (02:11)
[2017-10-14] MEDS ORDERED: DULO60CA6 PO (02:12)
[2017-10-14] MEDS ORDERED: LACO200T PO (02:15)
[2017-10-14] MEDS ORDERED: LACT1CAP21 PO (02:16)
[2017-10-14] MEDS ORDERED: MAG30ORA2 PO (02:19)
[2017-10-14] MEDS ORDERED: METH29OI TP (02:21)
[2017-10-14] MEDS ORDERED: TRAZ-85 PO (02:26)
[2017-10-14] MEDS: CALCIUM CARBONATE 500 MG TABLET PO SCH ×2 (06:00→08:38)
[2017-10-14] MEDS: LEVOTHYROXINE 75 MCG TABLET PO SCH (06:07)
[2017-10-14 06:19] VITALS: BP 101/55
[2017-10-14 07:27] LABS: BASO % 1 % (0-3); EOS # 0.4 x10^3/uL (0.0-0.7); EOS % 12 % (0-3); HEMATOCRIT 32.7 % (36.0-47.0); HEMOGLOBIN 11.2 g/dL (12.0-15.5); LYMPH # 1.4 x10^3/uL (1.0-4.8); LYMPH % 43 % (24-48); MEAN CORPUSCULAR HEMOGLOBIN 32 pg (25-35); MEAN CORPUSCULAR HGB CONC 34 g/dL (31-37); MEAN CORPUSCULAR VOLUME 92 fL (79-100); MONO # 0.4 x10^3/uL (0.0-1.1); MONO % 12 % (0-9); NEUT % 32 % (31-73); PLATELET COUNT 158 x10^3/uL (140-400); RED BLOOD COUNT 3.54 x10^6/uL (3.50-5.40); RED CELL DISTRIBUTION WIDTH 13.5 % (11.5-14.5); WHITE BLOOD COUNT 3.2 x10^3/uL (4.0-11.0)
[2017-10-14 07:36] LABS: ALBUMIN 2.8 g/dL (3.4-5.0); ALBUMIN/GLOBULIN RATIO 0.9 (1.0-1.7); ALK PHOS 104 U/L (46-116); ALT (SGPT) 16 U/L (14-59); ANION GAP 1 (6-14); AST (SGOT) 13 U/L (15-37); BLOOD UREA NITROGEN 30 mg/dL (7-20); BUN/CREATININE RATIO 50 (6-20); CALCIUM 9.1 mg/dL (8.5-10.1); CARBON DIOXIDE 34 mmol/L (21-32); CHLORIDE 108 mmol/L (98-107); CREATININE 0.6 mg/dL (0.6-1.0); GFR 100.6; GLUCOSE 90 mg/dL (70-99); POTASSIUM 3.9 mmol/L (3.5-5.1); SODIUM 143 mmol/L (136-145); TOTAL BILIRUBIN 0.2 mg/dL (0.2-1.0); TOTAL PROTEIN 5.8 g/dL (6.4-8.2)
[2017-10-14 07:44] LABS: VAL ACID 47 mcg/mL (50-100)
[2017-10-14] MEDS: DULoxetine HCL 60 MG CAPSULE.DR PO SCH (08:28)
[2017-10-14] MEDS: PANTOPRAZOLE 40 MG TABLET. PO SCH (08:28)
[2017-10-14] MEDS: LACTOBACILLUS RHAMNOSUS GG 1 CAPSULE. PO SCH (08:28)
[2017-10-14] MEDS: DIVALPROEX SODIUM 125 MG TABLET.DR. PO SCH (08:29)
[2017-10-14] MEDS: FERROUS SULFATE 325 MG TABLET. PO SCH (08:30)
[2017-10-14] MEDS: FELBAMATE 400 MG TABLET PO SCH ×2 (08:30→12:32)
[2017-10-14] MEDS: levETIRAcetam 250 MG TABLET PO SCH (08:36)
[2017-10-14] MEDS: MAGNESIUM OXIDE 400 MG TABLET PO SCH ×2 (08:36→12:32)
[2017-10-14] MEDS: QUEtiapine 25 MG TABLET. PO SCH ×2 (08:36→12:32)
[2017-10-14] MEDS: CHOLECALCIFEROL (VITAMIN D3) 1,000 UNIT TABLET PO SCH (08:37)
[2017-10-14] MEDS: LACOSAMIDE 50 MG TABLET PO SCH (08:37)
--- NOTE | 2017-10-14 18:38 | PDOC ---
Exam Note: David Note: Please also refer to the separate dictated note~for this date of service dictated separately.~Patient seen individually. Discussed the patient with Nursing staff reviewed the chart.~Reviewed interim history and current functioning. Reviewed vital signs,~Labs/ Radiology~and current medications noted below. Continue current treatment with the changes noted in the dictated addendum note Assessment: Vital Signs: Vital Signs Date Time Temp Pulse Resp B/P (MAP) Pulse Ox O2 Delivery O2 Flow Rate FiO2 10/14/17 06:19 98.0 69 16 101/55 (70) 96 Room Air I&O Intake and Output 10/14/17 07:00 Intake Total 460 ml Balance 460 ml Intake Oral 460 ml # Voids 2 # Bowel Movements 1 Labs: Laboratory Tests Test 10/14/17 07:02 White Blood Count 3.2 x10^3/uL (4.0-11.0) L Red Blood Count 3.54 x10^6/uL (3.50-5.40) Hemoglobin 11.2 g/dL (12.0-15.5) L Hematocrit 32.7 % (36.0-47.0) L Mean Corpuscular Volume 92 fL (79-100) Mean Corpuscular Hemoglobin 32 pg (25-35) Mean Corpuscular Hemoglobin Concent 34 g/dL (31-37) Red Cell Distribution Width 13.5 % (11.5-14.5) Platelet Count 158 x10^3/uL (140-400) Neutrophils (%) (Auto) 32 % (31-73) Lymphocytes (%) (Auto) 43 % (24-48) Monocytes (%) (Auto) 12 % (0-9) H Eosinophils (%) (Auto) 12 % (0-3) H Basophils (%) (Auto) 1 % (0-3) Neutrophils # (Auto) 1.0 x10^3uL (1.8-7.7) L Lymphocytes # (Auto) 1.4 x10^3/uL (1.0-4.8) Monocytes # (Auto) 0.4 x10^3/uL (0.0-1.1) Eosinophils # (Auto) 0.4 x10^3/uL (0.0-0.7) Basophils # (Auto) 0.0 x10^3/uL (0.0-0.2) Sodium Level 143 mmol/L (136-145) Potassium Level 3.9 mmol/L (3.5-5.1) Chloride Level 108 mmol/L (98-107) H Carbon Dioxide Level 34 mmol/L (21-32) H Anion Gap 1 (6-14) L Blood Urea Nitrogen 30 mg/dL (7-20) H Creatinine 0.6 mg/dL (0.6-1.0) Estimated GFR (Cockcroft-Gault) 100.6 BUN/Creatinine Ratio 50 (6-20) H Glucose Level 90 mg/dL (70-99) Calcium Level 9.1 mg/dL (8.5-10.1) Total Bilirubin 0.2 mg/dL (0.2-1.0) Aspartate Amino Transferase (AST) 13 U/L (15-37) L Alanine Aminotransferase (ALT) 16 U/L (14-59) Alkaline Phosphatase 104 U/L (46-116) Total Protein 5.8 g/dL (6.4-8.2) L Albumin 2.8 g/dL (3.4-5.0) L Albumin/Globulin Ratio 0.9 (1.0-1.7) L Valproic Acid Level 47 mcg/mL (50-100) L Valproic Acid Last Dose Date 10/13/17 Valproic Acid Last Dose Time 2100 Current Medications: Meds: Current Medications Acetaminophen (Tylenol) 650 mg PRN Q6HRS PRN PO PAIN / TEMP; Start 09/29/17 at 23:15; Stop 10/14/17 at 14:23; Status DC Multi-Ingredient Ointment (Analgesic [place]) 1 radha PRN QID PRN TP MUSCLE PAIN; Start 09/29/17 at 23:15; Stop 10/14/17 at 14:23; Status DC Al Hydroxide/Mg Hydroxide (Mylanta Plus Xs) 15 ml PRN AFTMEALHC PRN PO DYSPEPSIA; Start 09/29/17 at 23:15; Stop 10/14/17 at 14:23; Status DC Magnesium Hydroxide (Milk Of Magnesia) 2,400 mg PRN QHS PRN PO CONSTIPATION; Start 09/29/17 at 23:15; Stop 10/14/17 at 14:23; Status DC Non-Formulary Medication (Haloperidol ) 1 mg TID AT 12/26/1699 PO ; Start at 00:15; Stop 09/30/17 at 00:58; Status DC Non-Formulary Medication (Quetiapine Fumarate (Seroquel)) 25 mg TID AT 1999 PO ; Start 09/30/17 at 00:15; Stop 09/30/17 at 00:58; Status DC Non-Formulary Medication (Venlafaxine Hcl (Venlafaxine Hcl Er)) 112.5 mg HS PO ; Start 09/30/17 at 21:00; Stop 09/30/17 at 21:00; Status DC Vitamin D (Vitamin D3) 1,000 unit DAILY PO Last administered on 10/14/17at 08:37 ; Start 09/30/17 at 09:00; Stop 10/14/17 at 14:23; Status DC Felbamate (Felbatol) 800 mg TID PO Last administered on 10/14/17at 12:32; Start 09/30/17 at 09:00; Stop 10/14/17 at 14:23; Status DC Ferrous Sulfate (Feosol) 325 mg BIDAFTMEAL PO Last administered on 10/14/17at 08: 30; Start 09/30/17 at 09:00; Stop 10/14/17 at 14:23; Status DC Levothyroxine Sodium (Synthroid) 75 mcg DAILY06 PO Last administered on at 06:07; Start 09/30/17 at 06:00; Stop 10/14/17 at 14:23; Status DC Senna/Docusate Sodium (Senna Plus) 1 tab PRN BID PRN PO CONSTIPATION; Start at 00:15; Stop 10/14/17 at 14:23; Status DC Trimethoprim/ Sulfamethoxazole (Bactrim Ds) 1 tab BID PO Last administered on at 08:32; Start 09/30/17 at 09:00; Stop 10/04/17 at 17:32; Status DC Tramadol HCl (Ultram) 50 mg PRN Q6HRS PRN PO PAIN; Start 09/30/17 at 00:15; Stop 10/14/17 at 14:23; Status DC Non-Formulary Medication (Atorvastatin Calcium ) 5 mg QHS PO ; Start 09/30/17 at 21:00; Stop 09/30/17 at 21:00; Status DC Non-Formulary Medication (Bisacodyl ) 10 mg PRN DAILY PRN RC CONSTIPATION; Start 09/30/17 at 00:15; Stop 09/30/17 at 00:58; Status DC Non-Formulary Medication (Calcium Carbonate ) 5 ml BID AT 0600, 1800 PO ; Start 09/30/17 at 00:15; Stop 09/30/17 at 00:58; Status DC Non-Formulary Medication (Lacosamide (Vimpat)) 150 mg BID AT 0900, 1700 PO ; Start 09/30/17 at 00:15; Stop 09/30/17 at 00:58; Status DC Non-Formulary Medication (Levetiracetam (Keppra)) 750 mg BID AT 0900, 1700 PO ; Start 09/30/17 at 00:15; Stop 09/30/17 at 00:58; Status DC Non-Formulary Medication (Magnesium Oxide ) 400 mg TID AT 12/30/2099 PO ; Start 09/30/17 at 00:15; Stop 09/30/17 at 00:58; Status DC Non-Formulary Medication (Multivits,Th W-Fe,Other Min (Therems-M)) 1 tab DAILY PO ; Start 09/30/17 at 09:00; Stop 09/30/17 at 09:00; Status DC Non-Formulary Medication (Pantoprazole Sodium ) 40 mg BID PO ; Start 09/30/17 at 09:00; Stop 09/30/17 at 09:00; Status DC Non-Formulary Medication (Phenobarbital ) 64.8 mg HS PO ; Start 09/30/17 at 21: 00; Stop 09/30/17 at 21:00; Status DC Non-Formulary Medication (Polyethylene Glycol 3350 (Miralax)) 17 gm PRN DAILY PRN PO CONSTIPATION; Start 09/30/17 at 00:15; Stop 09/30/17 at 00:58; Status DC Non-Formulary Medication (Potassium Chloride ) 10 meq DAILY PO ; Start 09/30/17 at 09:00; Stop 09/30/17 at 09:00; Status DC Haloperidol (Haldol) 1 mg TIDPC PO Last administered on 10/01/17at 17:48; Start 09/30/17 at 08:30; Stop 10/01/17 at 18:14; Status DC Quetiapine Fumarate (SEROquel) 25 mg TID PO Last administered on 10/02/17at 12: 22; Start 09/30/17 at 09:00; Stop 10/02/17 at 18:09; Status DC Venlafaxine HCl (Effexor Xr) 112.5 mg DAILY PO Last administered on 10/01/17at 08:27; Start 09/30/17 at 09:00; Stop 10/01/17 at 18:14; Status DC Calcium Carbonate/ Glycine (Oscal) 1,250 mg BID66 PO Last administered on 08:38; Start 09/30/17 at 06:00; Stop 10/14/17 at 14:23; Status DC Pantoprazole Sodium (Protonix) 40 mg BIDBFRMEAL PO Last administered on 08:28; Start 09/30/17 at 07:30; Stop 10/14/17 at 14:23; Status DC Magnesium Oxide (Magnesium Oxide) 400 mg TID PO Last administered on 10/14/17 12:32; Start 09/30/17 at 09:00; Stop 10/14/17 at 14:23; Status DC Atorvastatin Calcium (Lipitor) 5 mg QHS PO Last administered on 10/13/17 20:52 ; Start 09/30/17 at 21:00; Stop 10/14/17 at 14:23; Status DC Lacosamide (Vimpat) 200 mg BIDAFTMEAL PO Last administered on 10/14/17at 08:37; Start 09/30/17 at 09:00; Stop 10/14/17 at 14:23; Status DC Levetiracetam (Keppra) 750 mg BIDAFTMEAL PO Last administered on 10/14/17 08:36 ; Start 09/30/17 at 09:00; Stop 10/14/17 at 14:23; Status DC Phenobarbital (Luminal) 64.8 mg QHS PO Last administered on 10/13/17 20:50; Start 09/30/17 at 21:00; Stop 10/14/17 at 14:23; Status DC Polyethylene Glycol (miraLAX) 17 gm PRN DAILY PRN PO CONSTIPATION; Start at 01:15; Stop 10/14/17 at 14:23; Status DC Bisacodyl (Dulcolax Supp) 10 mg PRN DAILY PRN WI CONSTIPATION; Start 09/30/17 at 01:15; Stop 10/14/17 at 14:23; Status DC Trazodone HCl (Desyrel) 50 mg PRN QHS PRN PO INSOMNIA; Start 09/30/17 at 18:45 ; Stop 10/14/17 at 14:23; Status DC Lactobacillus Rhamnosus (Culturelle) 1 cap BID PO Last administered on at 08:28; Start 10/01/17 at 21:00; Stop 10/14/17 at 14:23; Status DC Haloperidol (Haldol) 1 mg BID PO Last administered on 10/03/17at 20:45; Start at 21:00; Stop 10/03/17 at 21:01; Status DC Duloxetine HCl (Cymbalta) 30 mg DAILY PO Last administered on 10/04/17at 08:31; Start 10/02/17 at 09:00; Stop 10/04/17 at 09:01; Status DC Duloxetine HCl (Cymbalta) 60 mg DAILY PO Last administered on 10/14/17at 08:28; Start 10/05/17 at 09:00; Stop 10/14/17 at 14:23; Status DC Haloperidol (Haldol) 1 mg DAILY PO Last administered on 10/05/17at 08:57; Start 10/04/17 at 09:00; Stop 10/05/17 at 09:02; Status DC Quetiapine Fumarate (SEROquel) 25 mg [id number] PO Last administered on 10/14/17at 12:32; Start 10/02/17 at 21:00; Stop 10/14/17 at 14:23; Status DC Divalproex Sodium (Depakote Sprinkles) 250 mg BID94 PO Last administered on at 16:53; Start 10/05/17 at 09:00; Stop 10/08/17 at 18:28; Status DC Divalproex Sodium (Depakote) 375 mg BID PO Last administered on 10/11/17at 08:16 ; Start 10/08/17 at 21:00; Stop 10/11/17 at 18:19; Status DC Divalproex Sodium (Depakote) 500 mg BID PO Last administered on 10/14/17at 08:29 ; Start 10/11/17 at 21:00; Stop 10/14/17 at 14:23; Status DC Active Scripts Active Reported Trazodone Hcl 50 Mg Tablet 50 Mg PO PRN QHS PRN Analgesic [place] (Methyl Salicylate/Menthol) 28 Gm Oint...g. 1 Radha TP PRN QID PRN Mag-Al Plus Xs Suspension (Mag Hydrox/Al Hydrox/Simeth) 30 Ml Oral.susp 15 Ml PO PRN AFTMEALHC PRN Culturelle (Lactobacillus Rhamnosus Gg) 1 Each Capsule 1 Each PO BID Vimpat (Lacosamide) 200 Mg Tablet 200 Mg PO BIDAFTMEAL Cymbalta (Duloxetine Hcl) 60 Mg Capsule.dr 60 Mg PO DAILY06 Divalproex Sodium 500 Mg Tablet.dr 500 Mg PO BID Oyster Shell Calcium (Calcium Carbonate) 500 Mg Tablet 1,250 Mg PO BID66 Miralax (Polyethylene Glycol 3350) 17 Gm Powd.pack 17 Gm PO PRN DAILY PRN Milk Of Magnesia (Magnesium Hydroxide) 2,400 Mg/10 Ml Oral.susp 2,400 Mg PO PRN QHS PRN Atorvastatin Calcium 10 Mg Tablet 5 Mg PO QHS Seroquel (Quetiapine Fumarate) 25 Mg Tablet 25 Mg PO [id number] Pantoprazole Sodium 40 Mg Tablet.dr 40 Mg PO BIDBFRMEAL Vitamin D3 (Cholecalciferol (Vitamin D3)) 1,000 Unit Tablet 1,000 Unit PO DAILY Levothyroxine Sodium 75 Mcg Tablet 75 Mcg PO DAILY06 Phenobarbital 64.8 Mg Tablet 64.8 Mg PO HS Magnesium Oxide 400 Mg Tablet 400 Mg PO TID Tylenol (Acetaminophen) 325 Mg Tablet 650 Mg PO PRN Q6HRS PRN Tramadol Hcl (Tramadol HCl) 50 Mg Tablet 50 Mg PO PRN Q6HRS PRN Senna-S Tablet (Sennosides/Docusate Sodium) 1 Each Tablet 1 Tab PO PRN BID PRN Keppra (Levetiracetam) 250 Mg Tablet 750 Mg PO BIDAFTMEAL Ferrous Sulfate 325 Mg Tablet 325 Mg PO BIDAFTMEAL Bisacodyl 10 Mg Supp.rect 10 Mg RC PRN DAILY PRN Felbamate 400 Mg Tablet 800 Mg PO TID I have reviewed the current psychotropics carefully including drug interactions. Risk benefit ratio favors no change other than as noted in my dictated progress note. Diagnosis: Problems: (1) Bipolar affective, mixed (2) Impulse control disorder (3) Dementia, vascular, with delusions (4) Severe major depression with psychotic features (5) Adjustment disorder with depressed mood HARVEY QUIJANO MD Oct 14, 2017 18:38
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
== END 2017-10-14 14:22 | DRG 885 ==
LOC: GEROPSY 22:58
PROVIDERS: ADMIT Psychiatry & Neurology Psychiatry; ATTEND Psychiatry & Neurology Psychiatry
DX: F31.64 Bipolar disorder, current episode mixed, severe, with psychotic features (principal); N39.0 Urinary tract infection, site not specified; F01.51 Vascular dementia, unspecified severity, with behavioral disturbance; F02.81 Dementia in other diseases classified elsewhere, unspecified severity, with behavioral disturbance; E53.8 Deficiency of other specified B group vitamins; E86.0 Dehydration; F43.21 Adjustment disorder with depressed mood; F63.9 Impulse disorder, unspecified; F41.9 Anxiety disorder, unspecified; G30.9 Alzheimer's disease, unspecified; G40.909 Epilepsy, unspecified, not intractable, without status epilepticus; G47.00 Insomnia, unspecified; K21.9 Gastro-esophageal reflux disease without esophagitis; K59.1 Functional diarrhea; Z96.642 Presence of left artificial hip joint; Z96.653 Presence of artificial knee joint, bilateral; N28.9 Disorder of kidney and ureter, unspecified; Z79.899 Other long term (current) drug therapy; Z87.440 Personal history of urinary (tract) infections
CPT/HCPCS: 36415; 80053; 80061; 80164; 80177; 80184; 82306; 82607; 83036; 83540; 83550; 83735; 84436; 84439; 84443; 84480; 85025; 85027; 86592; 93005

== ENCOUNTER 2017-10-27 15:07 | Inpatient (IN) | payer MEDICARE, OTHER ==
[~2017-10-27] VITALS: Ht 162.6 cm; Wt 58.2 kg
[~2017-10-27 15:07] MED LIST changes: +ATOR10TA60 PO; +CALC500O PO; +CALC500T13 PO; +CHOL10003 PO; +DIVA-53 PO; +DULO60CA6 PO; +HALO1TAB PO; +LACO200T PO; +LACT1CAP21 PO; +LEVO75TA5 PO; +MAG30ORA2 PO; +MAGN2400 PO; +MAGN400T3 PO; +METH29OI TP; +MULT1TAB57 PO; +PANT40TA5 PO; +PHEN64.8 PO; +POLY17PO5 PO; +POTA10TA10 PO; +QUET25TA5 PO; +SULF1TAB24 PO; +TRAZ-85 PO; +VENL37.57 PO
[2017-10-27 15:47] LABS: BASO # 0.1 x10^3/uL (0.0-0.2); BASO % 1 % (0-3); EOS # 0.2 x10^3/uL (0.0-0.7); EOS % 4 % (0-3); HEMATOCRIT 34.5 % (36.0-47.0); HEMOGLOBIN 11.7 g/dL (12.0-15.5); LYMPH # 1.2 x10^3/uL (1.0-4.8); LYMPH % 21 % (24-48); MEAN CORPUSCULAR HEMOGLOBIN 31 pg (25-35); MEAN CORPUSCULAR HGB CONC 34 g/dL (31-37); MEAN CORPUSCULAR VOLUME 92 fL (79-100); MONO # 0.9 x10^3/uL (0.0-1.1); MONO % 16 % (0-9); NEUT # 3.3 x10^3uL (1.8-7.7); NEUT % 58 % (31-73); PLATELET COUNT 233 x10^3/uL (140-400); RED BLOOD COUNT 3.77 x10^6/uL (3.50-5.40); RED CELL DISTRIBUTION WIDTH 13.3 % (11.5-14.5); WHITE BLOOD COUNT 5.7 x10^3/uL (4.0-11.0)
[2017-10-27 16:00] LABS: ALBUMIN 2.8 g/dL (3.4-5.0); ALBUMIN/GLOBULIN RATIO 0.7 (1.0-1.7); CALCIUM 8.7 mg/dL (8.5-10.1); CREATININE 0.9 mg/dL (0.6-1.0); POTASSIUM 3.8 mmol/L (3.5-5.1); TOTAL BILIRUBIN 0.2 mg/dL (0.2-1.0); TOTAL PROTEIN 6.7 g/dL (6.4-8.2)
--- NOTE | 2017-10-27 16:37 | PHYS DOC ---
Past History Past Medical History: Anemia, Constipation, Dementia, Depression, Seizure Past Surgical History: Hip Replacement Adult General Chief Complaint Chief Complaint: PSYCH EVALUATION HPI HPI 62-year-old female presents [facility] brought in by EMS for medical clearance for psych admission. Patient cussing to staff and refused to answer the question or co- operate for physical exam. Review of Systems Review of Systems Patient refuses to answer Allergies Allergies Allergies Coded Allergies Type Severity Reaction Last Updated Verified clobazam Allergy Intermediate 10/10/17 Yes hydrocodone Allergy Intermediate 10/10/17 Yes vancomycin Allergy Intermediate 10/10/17 Yes Physical Exam Physical Exam Constitutional: Well l nourished, anxious HENT: Normocephalic, atraumatic Eyes: PERRLA, EOMI, conjunctiva normal, no discharge. [] Neck: Normal range of motion Cardiovascular:Heart rate regular rhythm, no murmur [] Lungs & Thorax: Bilateral breath sounds clear to auscultation [] Extremities: No tenderness, no cyanosis, no clubbing, ROM intact, no edema. [] Neurologic: Alert and oriented , normal motor function,, limited exam because of uncooperative patient Current Patient Data Lab Results Laboratory Tests Test 10/27/17 15:30 White Blood Count 5.7 x10^3/uL (4.0-11.0) Red Blood Count 3.77 x10^6/uL (3.50-5.40) Hemoglobin 11.7 g/dL (12.0-15.5) L Hematocrit 34.5 % (36.0-47.0) L Mean Corpuscular Volume 92 fL (79-100) Mean Corpuscular Hemoglobin 31 pg (25-35) Mean Corpuscular Hemoglobin Concent 34 g/dL (31-37) Red Cell Distribution Width 13.3 % (11.5-14.5) Platelet Count 233 x10^3/uL (140-400) Neutrophils (%) (Auto) 58 % (31-73) Lymphocytes (%) (Auto) 21 % (24-48) L Monocytes (%) (Auto) 16 % (0-9) H Eosinophils (%) (Auto) 4 % (0-3) H Basophils (%) (Auto) 1 % (0-3) Neutrophils # (Auto) 3.3 x10^3uL (1.8-7.7) Lymphocytes # (Auto) 1.2 x10^3/uL (1.0-4.8) Monocytes # (Auto) 0.9 x10^3/uL (0.0-1.1) Eosinophils # (Auto) 0.2 x10^3/uL (0.0-0.7) Basophils # (Auto) 0.1 x10^3/uL (0.0-0.2) Sodium Level 139 mmol/L (136-145) Potassium Level 3.8 mmol/L (3.5-5.1) Chloride Level 104 mmol/L (98-107) Carbon Dioxide Level 32 mmol/L (21-32) Anion Gap 3 (6-14) L Blood Urea Nitrogen 24 mg/dL (7-20) H Creatinine 0.9 mg/dL (0.6-1.0) Estimated GFR (Cockcroft-Gault) 63.0 BUN/Creatinine Ratio 27 (6-20) H Glucose Level 166 mg/dL (70-99) H Calcium Level 8.7 mg/dL (8.5-10.1) Magnesium Level 2.0 mg/dL (1.8-2.4) Total Bilirubin 0.2 mg/dL (0.2-1.0) Aspartate Amino Transferase (AST) 19 U/L (15-37) Alanine Aminotransferase (ALT) 18 U/L (14-59) Alkaline Phosphatase 104 U/L (46-116) Total Protein 6.7 g/dL (6.4-8.2) Albumin 2.8 g/dL (3.4-5.0) L Albumin/Globulin Ratio 0.7 (1.0-1.7) L EKG EKG Patient refused to have EKG[] Radiology/Procedures Radiology/Procedures [] Course & Med Decision Making Course & Med Decision Making Pertinent Labs reviewed. (See chart for details) She refused EKG. Patient did not have urine sample and [facility] informed about following the results. She was medically cleared for psych admission except for EKG and UA pending results. Dragon Disclaimer Dragon Disclaimer This electronic medical record was generated, in whole or in part, using a voice recognition dictation system. Departure Departure: Impression: Primary Impression: Medical clearance for psychiatric admission Additional Impressions: Behavior disturbance Uncooperative behavior Disposition: ADMITTED INPATIENT (to senior behavioral unit) Condition: STABLE Referrals: PEGGY ENGLE MPH, MD (PCP) Problem Qualifiers JOSE DELGADO MD Oct 27, 2017 16:37
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
[2017-10-27 18:50] LABS: VAL ACID 48 mcg/mL (50-100)
[2017-10-27] MEDS ORDERED: traMADol 50 MG TABLET PO PRN (20:00)
[2017-10-27] MEDS ORDERED: ACETAMINOPHEN 325 MG TABLET PO PRN (20:00)
[2017-10-27] MEDS ORDERED: METHYL SALICYLATE/MENTHOL TOPICAL OINTMENT 29GM TUBE. TP PRN (20:00)
[2017-10-27] MEDS ORDERED: SENNOSIDES/DOCUSATE 8.6/50MG TABLET. PO PRN (20:00)
[2017-10-27] MEDS ORDERED: MAG HYDROX/AL HYDROX/SIMETH 30 ML ORAL.SUSP PO PRN (20:00)
[2017-10-27] MEDS ORDERED: traZODone 50 MG TABLET. PO PRN (20:15)
[2017-10-27] MEDS ORDERED: BISACODYL 10 MG SUPP.RECT PR PRN (20:15)
[2017-10-27] MEDS ORDERED: MAGNESIUM HYDROXIDE 2,400 MG/30 ML ORAL.SUSP. PO PRN (20:15)
--- NOTE | 2017-10-27 20:54 | PDOC ---
Exam Note: David Note: Please also refer to the separate dictated note~for this date of service dictated separately.~Patient seen individually. Discussed the patient with Nursing staff reviewed the chart.~Reviewed interim history and current functioning. Reviewed vital signs,~Labs/ Radiology~and current medications noted below. Continue current treatment with the changes noted in the dictated addendum note Assessment: Vital Signs: Vital Signs Date Time Temp Pulse Resp B/P (MAP) Pulse Ox O2 Delivery O2 Flow Rate FiO2 10/27/17 17:08 80 18 95/51 (66) 97 Room Air 10/27/17 17:07 97.8 Labs: Laboratory Tests Test 10/27/17 15:30 White Blood Count 5.7 x10^3/uL (4.0-11.0) Red Blood Count 3.77 x10^6/uL (3.50-5.40) Hemoglobin 11.7 g/dL (12.0-15.5) L Hematocrit 34.5 % (36.0-47.0) L Mean Corpuscular Volume 92 fL (79-100) Mean Corpuscular Hemoglobin 31 pg (25-35) Mean Corpuscular Hemoglobin Concent 34 g/dL (31-37) Red Cell Distribution Width 13.3 % (11.5-14.5) Platelet Count 233 x10^3/uL (140-400) Neutrophils (%) (Auto) 58 % (31-73) Lymphocytes (%) (Auto) 21 % (24-48) L Monocytes (%) (Auto) 16 % (0-9) H Eosinophils (%) (Auto) 4 % (0-3) H Basophils (%) (Auto) 1 % (0-3) Neutrophils # (Auto) 3.3 x10^3uL (1.8-7.7) Lymphocytes # (Auto) 1.2 x10^3/uL (1.0-4.8) Monocytes # (Auto) 0.9 x10^3/uL (0.0-1.1) Eosinophils # (Auto) 0.2 x10^3/uL (0.0-0.7) Basophils # (Auto) 0.1 x10^3/uL (0.0-0.2) Sodium Level 139 mmol/L (136-145) Potassium Level 3.8 mmol/L (3.5-5.1) Chloride Level 104 mmol/L (98-107) Carbon Dioxide Level 32 mmol/L (21-32) Anion Gap 3 (6-14) L Blood Urea Nitrogen 24 mg/dL (7-20) H Creatinine 0.9 mg/dL (0.6-1.0) Estimated GFR (Cockcroft-Gault) 63.0 BUN/Creatinine Ratio 27 (6-20) H Glucose Level 166 mg/dL (70-99) H Calcium Level 8.7 mg/dL (8.5-10.1) Magnesium Level 2.0 mg/dL (1.8-2.4) Total Bilirubin 0.2 mg/dL (0.2-1.0) Aspartate Amino Transferase (AST) 19 U/L (15-37) Alanine Aminotransferase (ALT) 18 U/L (14-59) Alkaline Phosphatase 104 U/L (46-116) Total Protein 6.7 g/dL (6.4-8.2) Albumin 2.8 g/dL (3.4-5.0) L Albumin/Globulin Ratio 0.7 (1.0-1.7) L Valproic Acid Level 48 mcg/mL (50-100) L Valproic Acid Last Dose Date 10/27/17 Valproic Acid Last Dose Time 0800 Current Medications: Meds: Current Medications Divalproex Sodium (Depakote) 500 mg BID PO ; Start 10/27/17 at 21:00 Duloxetine HCl (Cymbalta) 60 mg DAILY06 PO ; Start 10/28/17 at 06:00 Quetiapine Fumarate (SEROquel) 25 mg [id number] PO ; Start 10/27/17 at 21:00 Trazodone HCl (Desyrel) 50 mg PRN QHS PRN PO INSOMNIA, MAY REPEAT X1; Start at 20:15 Acetaminophen (Tylenol) 650 mg PRN Q6HRS PRN PO MILD PAIN / TEMP; Start at 20:00 Calcium Carbonate/ Glycine (Oscal) 1,250 mg BID66 PO ; Start 10/28/17 at 06:00 Vitamin D (Vitamin D3) 1,000 unit DAILY PO ; Start 10/28/17 at 09:00 Felbamate (Felbatol) 800 mg TID PO ; Start 10/27/17 at 21:00 Ferrous Sulfate (Feosol) 325 mg BIDAFTMEAL PO ; Start 10/28/17 at 09:00 Levothyroxine Sodium (Synthroid) 75 mcg DAILY06 PO ; Start 10/28/17 at 06:00 Al Hydroxide/Mg Hydroxide (Mylanta Plus Xs) 15 ml PRN AFTMEALHC PRN PO DYSPEPSIA; Start 10/27/17 at 20:00 Multi-Ingredient Ointment (Analgesic Independence) 1 radha PRN QID PRN TP MUSCLE PAIN; Start 10/27/17 at 20:00 Senna/Docusate Sodium (Senna Plus) 1 tab PRN BID PRN PO CONSTIPATION 3RD CHOICE ; Start 10/27/17 at 20:00 Tramadol HCl (Ultram) 50 mg PRN Q6HRS PRN PO MODERATE PAIN; Start 10/27/17 at 20:00 Atorvastatin Calcium (Lipitor) 5 mg QHS PO ; Start 10/27/17 at 21:00 Bisacodyl (Dulcolax Supp) 10 mg PRN DAILY PRN ND CONSTIPATION; Start 10/27/17 at 20:15 Lacosamide (Vimpat) 200 mg BIDAFTMEAL PO ; Start 10/27/17 at 21:00 Lactobacillus Rhamnosus (Culturelle) 1 cap BID PO ; Start 10/27/17 at 21:00 Levetiracetam (Keppra) 750 mg BIDAFTMEAL PO ; Start 10/27/17 at 21:00 Magnesium Hydroxide (Milk Of Magnesia) 2,400 mg PRN Q4HRS PRN PO CONSTIPATION 2ND CHOICE; Start 10/27/17 at 20:15 Magnesium Oxide (Magnesium Oxide) 400 mg TID PO ; Start 10/27/17 at 21:00 Pantoprazole Sodium (Protonix) 40 mg BIDBFRMEAL PO ; Start 10/28/17 at 07:30 Phenobarbital (Luminal) 64.8 mg QHS PO ; Start 10/27/17 at 21:00 Polyethylene Glycol (miraLAX) 17 gm PRN DAILY PRN PO CONSTIPATION 1ST CHOICE; Start 10/28/17 at 09:00 Active Scripts Active Reported Trazodone Hcl 50 Mg Tablet 50 Mg PO PRN QHS PRN Analgesic Independence (Methyl Salicylate/Menthol) 28 Gm Oint...g. 1 Radha TP PRN QID PRN Mag-Al Plus Xs Suspension (Mag Hydrox/Al Hydrox/Simeth) 30 Ml Oral.susp 15 Ml PO PRN AFTMEALHC PRN Culturelle (Lactobacillus Rhamnosus Gg) 1 Each Capsule 1 Each PO BID Vimpat (Lacosamide) 200 Mg Tablet 200 Mg PO BIDAFTMEAL Cymbalta (Duloxetine Hcl) 60 Mg Capsule.dr 60 Mg PO DAILY06 Divalproex Sodium 500 Mg Tablet.dr 500 Mg PO BID Oyster Shell Calcium (Calcium Carbonate) 500 Mg Tablet 1,250 Mg PO BID66 Miralax (Polyethylene Glycol 3350) 17 Gm Powd.pack 17 Gm PO PRN DAILY PRN Milk Of Magnesia (Magnesium Hydroxide) 2,400 Mg/10 Ml Oral.susp 2,400 Mg PO PRN QHS PRN Atorvastatin Calcium 10 Mg Tablet 5 Mg PO QHS Seroquel (Quetiapine Fumarate) 25 Mg Tablet 25 Mg PO [id number] Pantoprazole Sodium 40 Mg Tablet.dr 40 Mg PO BIDBFRMEAL Vitamin D3 (Cholecalciferol (Vitamin D3)) 1,000 Unit Tablet 1,000 Unit PO DAILY Levothyroxine Sodium 75 Mcg Tablet 75 Mcg PO DAILY06 Phenobarbital 64.8 Mg Tablet 64.8 Mg PO HS Magnesium Oxide 400 Mg Tablet 400 Mg PO TID Tylenol (Acetaminophen) 325 Mg Tablet 650 Mg PO PRN Q6HRS PRN Tramadol Hcl (Tramadol HCl) 50 Mg Tablet 50 Mg PO PRN Q6HRS PRN Senna-S Tablet (Sennosides/Docusate Sodium) 1 Each Tablet 1 Tab PO PRN BID PRN Keppra (Levetiracetam) 250 Mg Tablet 750 Mg PO BIDAFTMEAL Ferrous Sulfate 325 Mg Tablet 325 Mg PO BIDAFTMEAL Bisacodyl 10 Mg Supp.rect 10 Mg RC PRN DAILY PRN Felbamate 400 Mg Tablet 800 Mg PO TID I have reviewed the current psychotropics carefully including drug interactions. Risk benefit ratio favors no change other than as noted in my dictated progress note. Diagnosis: Problems: (1) Functional diarrhea (2) urinary tract infection (3) Left hip arthroplasty (4) Severe major depression with psychotic features (5) Adjustment disorder with depressed mood (6) Bipolar affective, mixed (7) Impulse control disorder (8) Dementia, vascular, with delusions (9) Dementia, vascular, with depression (10) Uncooperative behavior (11) Behavior disturbance (12) Medical clearance for psychiatric admission HARVEY QUIJANO MD Oct 27, 2017 20:54
[2017-10-27] MEDS: MAGNESIUM OXIDE 400 MG TABLET PO SCH (20:56)
[2017-10-27] MEDS: ATORVASTATIN CALCIUM 10 MG TABLET. PO SCH (20:57)
[2017-10-27] MEDS: LACTOBACILLUS RHAMNOSUS GG 1 CAPSULE. PO SCH (20:57)
[2017-10-27] MEDS: PHENobarbital 32.4 MG TABLET. PO SCH (20:58)
[2017-10-27] MEDS: FELBAMATE 400 MG TABLET PO SCH (21:00)
[2017-10-27] MEDS ORDERED: DIVALPROEX SODIUM 250 MG TABLET.DR. PO SCH (21:00)
[2017-10-27] MEDS: levETIRAcetam 250 MG TABLET PO SCH (21:00)
[2017-10-27] MEDS: LACOSAMIDE 50 MG TABLET PO SCH (21:00)
[2017-10-27] MEDS: QUEtiapine 25 MG TABLET. PO SCH (21:00)
[2017-10-27] MEDS: DIVALPROEX 125 MG CAP.SPRINK PO SCH (21:06)
[2017-10-27 21:12] LABS: BACTERIA,URINE 0 /HPF (0-FEW); BILIRUBIN,URINE NEG (NEG); CLARITY,URINE HAZY; COLOR,URINE YELLOW; GLUCOSE,URINE NEG (NEG); NITRITE,URINE NEG (NEG); SQUAMOUS EPITHELIAL CELL,UR FEW /LPF; UROBILINOGEN,URINE 2 mg/dL (0.2 mg/dL)
[2017-10-28 00:51] VITALS: BP 98/60
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
[2017-10-28 05:59] VITALS: BP 106/65
[2017-10-28] MEDS: DULoxetine HCL 60 MG CAPSULE.DR PO SCH (06:13)
[2017-10-28] MEDS: LEVOTHYROXINE 75 MCG TABLET PO SCH (06:13)
[2017-10-28] MEDS: CALCIUM CARBONATE 500 MG TABLET PO SCH ×2 (06:13→18:02)
--- NOTE | 2017-10-28 06:34 | EKG ---
[address] [address] Test Date: 2017-10-28 Test Time: 06:21:47 Pat Name: LUZMA BALDERAS Department: Room: [address] [place] [address] Gender: F Rn Ortho: BRE : 1955 Requested By: JOSE DELGADO Order Number: [id number] Reading MD: Chato Dugan MD Measurements Intervals [place] Rate: 62 P: 59 MO: 184 QRS: 70 QRSD: 88 T: 77 QT: 422 QTc: 431 Interpretive Statements SINUS RHYTHM Electronically Signed On 11-05-2017 11:55:14 CDT by Chato Dugan MD
[2017-10-28] MEDS: LACOSAMIDE 50 MG TABLET PO SCH ×2 (08:28→18:04)
[2017-10-28] MEDS: levETIRAcetam 250 MG TABLET PO SCH ×2 (08:28→18:02)
[2017-10-28] MEDS: DIVALPROEX 125 MG CAP.SPRINK PO SCH ×2 (08:28→19:50)
[2017-10-28] MEDS: MAGNESIUM OXIDE 400 MG TABLET PO SCH ×3 (08:28→19:50)
[2017-10-28] MEDS: LACTOBACILLUS RHAMNOSUS GG 1 CAPSULE. PO SCH ×2 (08:28→19:50)
[2017-10-28] MEDS: CHOLECALCIFEROL (VITAMIN D3) 1,000 UNIT TABLET PO SCH (08:31)
[2017-10-28] MEDS: PANTOPRAZOLE 40 MG TABLET. PO SCH ×2 (08:31→18:02)
[2017-10-28] MEDS: FERROUS SULFATE 325 MG TABLET. PO SCH ×2 (08:31→18:02)
[2017-10-28] MEDS: FELBAMATE 400 MG TABLET PO SCH ×4 (08:48→19:53)
[2017-10-28] MEDS: QUEtiapine 25 MG TABLET. PO SCH ×4 (08:48→19:50)
[2017-10-28] MEDS ORDERED: POLYETHYLENE GLYCOL 3350 17 GM PACKET. PO PRN (09:00)
--- NOTE | 2017-10-28 10:00 | NUR ---
Dr. Ackerman notified of pt's Left hand xray. No new orders received.
--- NOTE | 2017-10-28 10:26 | RAD ---
History: Possible injury to the hand. Swelling and redness. Comparison: None. Findings: PA, lateral, and oblique views of the left hand. Slightly displaced fracture of the distal 4th metacarpal shaft is seen, best appreciated on the frontal and oblique images. Acuity is uncertain, but no convincing calcification is identified, suggesting that it may be acute. There is soft tissue swelling of the hand. There is evidence of volar subluxation at the 1st MCP joint. Impression: 1. Slightly displaced 4th metacarpal shaft fracture, may be acute. 2. Subluxation at the 1st MCP joint. Electronically signed by: Tez Randolph MD (10/28/2017 10:23 AM) [facility]
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
--- NOTE | 2017-10-28 11:08 | NUR ---
Behavior Intervention Response and Plan: BIRP Note: Behavior: Assumed Care of patient, patient located in Dining Room at shift change. Patient exhibited the following behavior Disorganized, Irritable, Resistive. Brief assessment on rounds of vital signs, medication needs, lab studies, and pain. Treatment plan problems 1-2. Intervention: Patient assessed and the following interventions initiated safety checks 15 Minute Checks Personal Alarm in place , Cognitive Assessment , Head to toe Assessment. Response: After interactions and interventions patient responded in the following manner, Disorganized , Withdrawn ,Compulsive. Continue to assess behaviors and condition will continue to monitor throughout the shift as needed. Patient educated on ADL's, and hand hygiene. Plan: Continue to monitor Master Treatment Plan for patient's progress toward short term goals of Decreased Agitation, Decreased Aggression, manager terminal goals to return to previous living setting vs placement. Continue to assess patient for changes in above assessment. Monitor for medication needs, pain, and safety concerns. Hourly rounding performed to ensure safe environment.
[2017-10-28 16:02] VITALS: BP 94/66
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
--- NOTE | 2017-10-28 17:37 | NUR ---
Pt has been compliant w whole medications. Pt withdrawn most of the day, making rude/ sarcastic comments at times.
[2017-10-28] MEDS: ATORVASTATIN CALCIUM 10 MG TABLET. PO SCH (19:51)
[2017-10-28] MEDS: PHENobarbital 32.4 MG TABLET. PO SCH (19:53)
--- NOTE | 2017-10-28 20:26 | PDOC ---
Exam Note: David Note: Please also refer to the separate dictated note~for this date of service dictated separately.~Patient seen individually. Discussed the patient with Nursing staff reviewed the chart.~Reviewed interim history and current functioning. Reviewed vital signs,~Labs/ Radiology~and current medications noted below. Continue current treatment with the changes noted in the dictated addendum note Assessment: Vital Signs: Vital Signs Date Time Temp Pulse Resp B/P (MAP) Pulse Ox O2 Delivery O2 Flow Rate FiO2 10/28/17 16:02 96.9 70 18 94/66 (75) 98 10/28/17 05:59 Room Air I&O Intake and Output 10/28/17 06:59 Intake Total 120 ml Output Total 40 ml Balance 80 ml Intake Oral 120 ml Output Urine Total 40 ml # Bowel Movements 1 Current Medications: Meds: Current Medications Divalproex Sodium (Depakote) 500 mg BID PO ; Start 10/27/17 at 21:00; Stop 10/27 at 21:00; Status DC Duloxetine HCl (Cymbalta) 60 mg DAILY06 PO Last administered on 10/28/17at 06:13 ; Start 10/28/17 at 06:00 Quetiapine Fumarate (SEROquel) 25 mg [id number] PO Last administered on 10/28/17at 19:50; Start 10/27/17 at 21:00 Trazodone HCl (Desyrel) 50 mg PRN QHS PRN PO INSOMNIA, MAY REPEAT X1 Last administered on 10/27/17at 20:56; Start 10/27/17 at 20:15 Acetaminophen (Tylenol) 650 mg PRN Q6HRS PRN PO MILD PAIN / TEMP; Start at 20:00 Calcium Carbonate/ Glycine (Oscal) 1,250 mg BID66 PO Last administered on at 18:02; Start 10/28/17 at 06:00 Vitamin D (Vitamin D3) 1,000 unit DAILY PO Last administered on 10/28/17at 08:31 ; Start 10/28/17 at 09:00 Felbamate (Felbatol) 800 mg TID PO Last administered on 10/28/17at 19:53; Start 10/27/17 at 21:00 Ferrous Sulfate (Feosol) 325 mg BIDAFTMEAL PO Last administered on 10/28/17 18 :02; Start 10/28/17 at 09:00 Levothyroxine Sodium (Synthroid) 75 mcg DAILY06 PO Last administered on at 06:13; Start 10/28/17 at 06:00 Al Hydroxide/Mg Hydroxide (Mylanta Plus Xs) 15 ml PRN AFTMEALHC PRN PO DYSPEPSIA; Start 10/27/17 at 20:00 Multi-Ingredient Ointment (Analgesic [place]) 1 radha PRN QID PRN TP MUSCLE PAIN; Start 10/27/17 at 20:00 Senna/Docusate Sodium (Senna Plus) 1 tab PRN BID PRN PO CONSTIPATION 3RD CHOICE ; Start 10/27/17 at 20:00 Tramadol HCl (Ultram) 50 mg PRN Q6HRS PRN PO MODERATE PAIN Last administered on 10/27/17at 20:57; Start 10/27/17 at 20:00 Atorvastatin Calcium (Lipitor) 5 mg QHS PO Last administered on 10/28/17at 19:51 ; Start 10/27/17 at 21:00 Bisacodyl (Dulcolax Supp) 10 mg PRN DAILY PRN [place] CONSTIPATION; Start 10/27/17 at 20:15 Lacosamide (Vimpat) 200 mg BIDAFTMEAL PO Last administered on 10/28/17at 18:04; Start 10/27/17 at 21:00 Lactobacillus Rhamnosus (Culturelle) 1 cap BID PO Last administered on at 19:50; Start 10/27/17 at 21:00 Levetiracetam (Keppra) 750 mg BIDAFTMEAL PO Last administered on 10/28/17at 18: 02; Start 10/27/17 at 21:00 Magnesium Hydroxide (Milk Of Magnesia) 2,400 mg PRN Q4HRS PRN PO CONSTIPATION 2ND CHOICE; Start 10/27/17 at 20:15 Magnesium Oxide (Magnesium Oxide) 400 mg TID PO Last administered on 10/28/17at 19:50; Start 10/27/17 at 21:00 Pantoprazole Sodium (Protonix) 40 mg BIDBFRMEAL PO Last administered on at 18:02; Start 10/28/17 at 07:30 Phenobarbital (Luminal) 64.8 mg QHS PO Last administered on 10/28/17at 19:53; Start 10/27/17 at 21:00 Polyethylene Glycol (miraLAX) 17 gm PRN DAILY PRN PO CONSTIPATION 1ST CHOICE; Start 10/28/17 at 09:00 Divalproex Sodium (Depakote Sprinkles) 500 mg BID PO Last administered on at 08:28; Start 10/27/17 at 21:00; Stop 10/28/17 at 18:25; Status DC Divalproex Sodium (Depakote Sprinkles) 500 mg DAILY PO ; Start 10/29/17 at 09:00 Divalproex Sodium (Depakote Sprinkles) 750 mg HS PO Last administered on at 19:50; Start 10/28/17 at 21:00 Active Scripts Active Reported Trazodone Hcl 50 Mg Tablet 50 Mg PO PRN QHS PRN Analgesic [place] (Methyl Salicylate/Menthol) 28 Gm Oint...g. 1 Radha TP PRN QID PRN Mag-Al Plus Xs Suspension (Mag Hydrox/Al Hydrox/Simeth) 30 Ml Oral.susp 15 Ml PO PRN AFTMEALHC PRN Culturelle (Lactobacillus Rhamnosus Gg) 1 Each Capsule 1 Each PO BID Vimpat (Lacosamide) 200 Mg Tablet 200 Mg PO BIDAFTMEAL Cymbalta (Duloxetine Hcl) 60 Mg Capsule.dr 60 Mg PO DAILY06 Divalproex Sodium 500 Mg Tablet.dr 500 Mg PO BID Oyster Shell Calcium (Calcium Carbonate) 500 Mg Tablet 1,250 Mg PO BID66 Miralax (Polyethylene Glycol 3350) 17 Gm Powd.pack 17 Gm PO PRN DAILY PRN Milk Of Magnesia (Magnesium Hydroxide) 2,400 Mg/10 Ml Oral.susp 2,400 Mg PO PRN QHS PRN Atorvastatin Calcium 10 Mg Tablet 5 Mg PO QHS Seroquel (Quetiapine Fumarate) 25 Mg Tablet 25 Mg PO [id number] Pantoprazole Sodium 40 Mg Tablet.dr 40 Mg PO BIDBFRMEAL Vitamin D3 (Cholecalciferol (Vitamin D3)) 1,000 Unit Tablet 1,000 Unit PO DAILY Levothyroxine Sodium 75 Mcg Tablet 75 Mcg PO DAILY06 Phenobarbital 64.8 Mg Tablet 64.8 Mg PO HS Magnesium Oxide 400 Mg Tablet 400 Mg PO TID Tylenol (Acetaminophen) 325 Mg Tablet 650 Mg PO PRN Q6HRS PRN Tramadol Hcl (Tramadol HCl) 50 Mg Tablet 50 Mg PO PRN Q6HRS PRN Senna-S Tablet (Sennosides/Docusate Sodium) 1 Each Tablet 1 Tab PO PRN BID PRN Keppra (Levetiracetam) 250 Mg Tablet 750 Mg PO BIDAFTMEAL Ferrous Sulfate 325 Mg Tablet 325 Mg PO BIDAFTMEAL Bisacodyl 10 Mg Supp.rect 10 Mg RC PRN DAILY PRN Felbamate 400 Mg Tablet 800 Mg PO TID I have reviewed the current psychotropics carefully including drug interactions. Risk benefit ratio favors no change other than as noted in my dictated progress note. Diagnosis: Problems: (1) Functional diarrhea (2) urinary tract infection (3) Left hip arthroplasty (4) Severe major depression with psychotic features (5) Adjustment disorder with depressed mood (6) Bipolar affective, mixed (7) Impulse control disorder (8) Dementia, vascular, with delusions (9) Dementia, vascular, with depression (10) Uncooperative behavior (11) Behavior disturbance (12) Medical clearance for psychiatric admission HARVEY QUIJANO MD Oct 28, 2017 20:26
--- NOTE | 2017-10-29 00:47 | NUR ---
Behavior Intervention Response and Plan: BIRP Note: Behavior: Assumed Care of patient, patient located in Patient Room at shift change. Patient exhibited the following behavior Calm, Disorganized, Compliant. Brief assessment on rounds of vital signs, medication needs, lab studies, and pain. Treatment plan problems . Intervention: Patient assessed and the following interventions initiated safety checks 15 Minute Checks Cognitive Assessment , Head to toe Assessment , Medications. Response: After interactions and interventions patient responded in the following manner, Drowsy , Withdrawn ,Sleeping. Continue to assess behaviors and condition will continue to monitor throughout the shift as needed. Patient educated on ADL's, and hand hygiene. 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 Continue to assess patient for changes in above assessment. Monitor for medication needs, pain, and safety concerns. Hourly rounding performed to ensure safe environment.
[2017-10-29] MEDS: CALCIUM CARBONATE 500 MG TABLET PO SCH ×2 (05:52→17:56)
[2017-10-29] MEDS: DULoxetine HCL 60 MG CAPSULE.DR PO SCH (05:52)
[2017-10-29] MEDS: LEVOTHYROXINE 75 MCG TABLET PO SCH (05:52)
[2017-10-29 06:30] VITALS: BP 108/69
[2017-10-29 06:54] LABS: CALCIUM 9.4 mg/dL (8.5-10.1); CREATININE 0.6 mg/dL (0.6-1.0); GFR 100.6; POTASSIUM 3.8 mmol/L (3.5-5.1)
[2017-10-29] MEDS: MAGNESIUM OXIDE 400 MG TABLET PO SCH ×3 (07:55→20:10)
[2017-10-29] MEDS: QUEtiapine 25 MG TABLET. PO SCH ×4 (07:55→20:10)
[2017-10-29] MEDS: PANTOPRAZOLE 40 MG TABLET. PO SCH ×2 (07:55→17:55)
[2017-10-29] MEDS: FERROUS SULFATE 325 MG TABLET. PO SCH ×2 (07:55→17:55)
[2017-10-29] MEDS: LACTOBACILLUS RHAMNOSUS GG 1 CAPSULE. PO SCH ×2 (07:55→20:10)
[2017-10-29] MEDS: CHOLECALCIFEROL (VITAMIN D3) 1,000 UNIT TABLET PO SCH (07:55)
[2017-10-29] MEDS: levETIRAcetam 250 MG TABLET PO SCH ×2 (07:56→17:55)
[2017-10-29] MEDS: FELBAMATE 400 MG TABLET PO SCH ×3 (07:56→20:12)
[2017-10-29] MEDS: DIVALPROEX 125 MG CAP.SPRINK PO SCH ×2 (07:58→20:09)
[2017-10-29] MEDS: LACOSAMIDE 50 MG TABLET PO SCH ×2 (08:04→17:56)
--- NOTE | 2017-10-29 09:43 | NUR ---
SW reviewed pt insurance, per facesheet, [employer] and intake pt has Medicare primary.
--- NOTE | 2017-10-29 11:27 | NUR ---
Behavior Intervention Response and Plan: BIRP Note: Behavior: Assumed Care of patient, patient located in Hallway at shift change. Patient exhibited the following behavior Disorganized, Calm, Irritable. Brief assessment on rounds of vital signs, medication needs, lab studies, and pain. Treatment plan problems 1-2. Intervention: Patient assessed and the following interventions initiated safety checks 15 Minute Checks Personal Alarm in place , Cognitive Assessment , Head to toe Assessment. Response: After interactions and interventions patient responded in the following manner, Disorganized , Withdrawn ,Irritable. Continue to assess behaviors and condition will continue to monitor throughout the shift as needed. Patient educated on ADL's, and hand hygiene. 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 Continue to assess patient for changes in above assessment. Monitor for medication needs, pain, and safety concerns. Hourly rounding performed to ensure safe environment.
--- NOTE | 2017-10-29 13:35 | NUR ---
ACTIVITY THERAPY ASSESSMENT Completed based on interview, observation and information from previous admission on 09/30/2017. On this day at this time, Pt. seemed to move and talk very slowly. She stated she is "tired all the time." She had poor eye contact and stared throughout the assessment. Pt. was able to answer yes or no questions about leisure interests. She said she liked: making things and arts/ crafts. She stated she did not like watching TV and not very interested in music. Pt's sister, , chat with INTERNET AND E BUSINESS PROJECT MANAGER during visiting hours that afternoon and explained her sister liked to read and work on wordsearches. Her sister did not know what she meant by make things. Early in this day, Pt. was more alert, made negative remarks, answered questions that were not directed towards her, moves self around, rolls back and forth in wheelchair and often puts self in the middle of groups. Initial goal aimed to increase engagement and healthy social interaction: Pt. will participate in two individual activities fully before discharge. Activity Therapy Assessment from 10/04/2017 at 1055 from admission on 09/30/2017- Completed based on observation and interview . Pt. was in the secured hallway following a behavioral incident that therapist did not observe. Pt. was teary and upset with having to have her nails trimmed. She expressed disliking men and that the other staff are 'being mean to her'. Throughout assessment, Pt. was able to answer all questions and respond to prompts. She told therapist that her son and two grandchildren live far away and she does not see them often. She expressed that she does not have many friends and does not like being here. Pt. answer assessment questions while roaming in her wheelchair in a clear pattern that indicates a stimming-like behavior. She expressed that she likes to color, 'make things', and read but 'can't do that here'. Pt. is able to articulate wants/needs clearly and identify problems but faces difficulty in finding solutions to them. Overall affect is negative; Pt. seems lonely, depressed, and unmotivated/disinterested. During groups, Pt. frequently makes negative comments and has been observed kicking, running into, and scratching other patients. Initial goal aimed to increase engagement and healthy social interaction: Pt. will participate in two individual activities fully before discharge. Addendum: 10/30/17 at 0857 by ANDREW ABARCA ACT Pt's sister Frannie. Addendum: 11/07/17 at 1633 by NANCY RIDER ACT Goal changed 11/06: Pt. will participate in at least one group or individual activity per day, with staff assistance as need be
--- NOTE | 2017-10-29 14:32 | PN ---
DATE: 10/28/2017 PSYCHIATRIC PROGRESS NOTE This is a late entry 10/28/2017, covers elements not covered in my initial note. SUBJECTIVE: I met with the patient in the evening. The patient slept 6 hours previous evening, had a very "bad night" per nursing report. She came in and was dirty, refused a shower, was cursing at staff, hitting striking out, then did better. She has done better during the day 10/28/2017. REVIEW OF SYSTEMS: Ambulation impaired, in wheelchair. No CV, , pulmonary, eye, ENT system symptoms on review. MENTAL STATUS EXAM: Oriented to herself. Insight, judgment, recent and remote memory, attention, concentration, fund of knowledge poor, consistent with her diagnoses mentioned in my initial note. Valproic acid level subtherapeutic at 48. PLAN: Increase Depakote from 500 mg b.i.d. to 500 a.m., 750 at bedtime. Check CBC, CMP, valproic acid level in 3 days to reach therapeutic level. Continue Cymbalta 60 mg a day, Seroquel 25 mg 4 times a day and she is on Keppra 250 b.i.d. for seizures, trazodone 50 mg at bedtime p.r.n., may repeat x 1 for insomnia. HARVEY QUIJANO MD DR: LOYD/eboni JOB#: [id number] / [id number]
[2017-10-29 16:47] VITALS: BP 96/64
--- NOTE | 2017-10-29 20:00 | NUR ---
Behavior Intervention Response and Plan: BIRP Note: Behavior: Assumed Care of patient, patient located in Day Room at shift change. Patient exhibited the following behavior Calm, Social, Cooperative. Brief assessment on rounds of vital signs, medication needs, lab studies, and pain. Treatment plan problems . Intervention: Patient assessed and the following interventions initiated safety checks 15 Minute Checks Cognitive Assessment , Head to toe Assessment , Medications. Response: After interactions and interventions patient responded in the following manner, Compliant , Cooperative ,Social. Continue to assess behaviors and condition will continue to monitor throughout the shift as needed. Patient educated on ADL's, and hand hygiene. 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 Continue to assess patient for changes in above assessment. Monitor for medication needs, pain, and safety concerns. Hourly rounding performed to ensure safe environment.
[2017-10-29] MEDS: ATORVASTATIN CALCIUM 10 MG TABLET. PO SCH (20:10)
--- NOTE | 2017-10-29 20:57 | PDOC ---
Exam Note: David Note: Please also refer to the separate dictated note~for this date of service dictated separately.~Patient seen individually. Discussed the patient with Nursing staff reviewed the chart.~Reviewed interim history and current functioning. Reviewed vital signs,~Labs/ Radiology~and current medications noted below. Continue current treatment with the changes noted in the dictated addendum note Assessment: Vital Signs: Vital Signs Date Time Temp Pulse Resp B/P (MAP) Pulse Ox O2 Delivery O2 Flow Rate FiO2 10/29/17 16:47 97.0 69 18 96/64 (75) 97 10/28/17 05:59 Room Air I&O Intake and Output 10/29/17 06:59 Intake Total 940 ml Balance 940 ml Intake Oral 940 ml Labs: Laboratory Tests Test 10/29/17 06:25 Sodium Level 142 mmol/L (136-145) Potassium Level 3.8 mmol/L (3.5-5.1) Chloride Level 105 mmol/L (98-107) Carbon Dioxide Level 31 mmol/L (21-32) Anion Gap 6 (6-14) Blood Urea Nitrogen 17 mg/dL (7-20) Creatinine 0.6 mg/dL (0.6-1.0) Estimated GFR (Cockcroft-Gault) 100.6 Glucose Level 82 mg/dL (70-99) Calcium Level 9.4 mg/dL (8.5-10.1) Current Medications: Meds: Current Medications Divalproex Sodium (Depakote) 500 mg BID PO ; Start 10/27/17 at 21:00; Stop 10/27 at 21:00; Status DC Duloxetine HCl (Cymbalta) 60 mg DAILY06 PO Last administered on 10/29/17at 05:52 ; Start 10/28/17 at 06:00 Quetiapine Fumarate (SEROquel) 25 mg [id number] PO Last administered on 10/29/17at 20:10; Start 10/27/17 at 21:00 Trazodone HCl (Desyrel) 50 mg PRN QHS PRN PO INSOMNIA, MAY REPEAT X1 Last administered on 10/27/17at 20:56; Start 10/27/17 at 20:15 Acetaminophen (Tylenol) 650 mg PRN Q6HRS PRN PO MILD PAIN / TEMP; Start at 20:00 Calcium Carbonate/ Glycine (Oscal) 1,250 mg BID66 PO Last administered on at 17:56; Start 10/28/17 at 06:00 Vitamin D (Vitamin D3) 1,000 unit DAILY PO Last administered on 10/29/17at 07:55 ; Start 10/28/17 at 09:00 Felbamate (Felbatol) 800 mg TID PO Last administered on 10/29/17at 20:12; Start 10/27/17 at 21:00 Ferrous Sulfate (Feosol) 325 mg BIDAFTMEAL PO Last administered on 10/29/17at 17 :55; Start 10/28/17 at 09:00 Levothyroxine Sodium (Synthroid) 75 mcg DAILY06 PO Last administered on at 05:52; Start 10/28/17 at 06:00 Al Hydroxide/Mg Hydroxide (Mylanta Plus Xs) 15 ml PRN AFTMEALHC PRN PO DYSPEPSIA; Start 10/27/17 at 20:00 Multi-Ingredient Ointment (Analgesic [place]) 1 radha PRN QID PRN TP MUSCLE PAIN; Start 10/27/17 at 20:00 Senna/Docusate Sodium (Senna Plus) 1 tab PRN BID PRN PO CONSTIPATION 3RD CHOICE ; Start 10/27/17 at 20:00 Tramadol HCl (Ultram) 50 mg PRN Q6HRS PRN PO MODERATE PAIN Last administered on 10/27/17at 20:57; Start 10/27/17 at 20:00 Atorvastatin Calcium (Lipitor) 5 mg QHS PO Last administered on 10/29/17at 20:10 ; Start 10/27/17 at 21:00 Bisacodyl (Dulcolax Supp) 10 mg PRN DAILY PRN [place] CONSTIPATION; Start 10/27/17 at 20:15 Lacosamide (Vimpat) 200 mg BIDAFTMEAL PO Last administered on 10/29/17at 17:56; Start 10/27/17 at 21:00 Lactobacillus Rhamnosus (Culturelle) 1 cap BID PO Last administered on at 20:10; Start 10/27/17 at 21:00 Levetiracetam (Keppra) 750 mg BIDAFTMEAL PO Last administered on 10/29/17at 17: 55; Start 10/27/17 at 21:00 Magnesium Hydroxide (Milk Of Magnesia) 2,400 mg PRN Q4HRS PRN PO CONSTIPATION 2ND CHOICE; Start 10/27/17 at 20:15 Magnesium Oxide (Magnesium Oxide) 400 mg TID PO Last administered on 10/29/17at 20:10; Start 10/27/17 at 21:00 Pantoprazole Sodium (Protonix) 40 mg BIDBFRMEAL PO Last administered on at 17:55; Start 10/28/17 at 07:30 Phenobarbital (Luminal) 64.8 mg QHS PO Last administered on 10/28/17at 19:53; Start 10/27/17 at 21:00 Polyethylene Glycol (miraLAX) 17 gm PRN DAILY PRN PO CONSTIPATION 1ST CHOICE; Start 10/28/17 at 09:00 Divalproex Sodium (Depakote Sprinkles) 500 mg BID PO Last administered on at 08:28; Start 10/27/17 at 21:00; Stop 10/28/17 at 18:25; Status DC Divalproex Sodium (Depakote Sprinkles) 500 mg DAILY PO Last administered on at 07:58; Start 10/29/17 at 09:00 Divalproex Sodium (Depakote Sprinkles) 750 mg HS PO Last administered on at 20:09; Start 10/28/17 at 21:00 Active Scripts Active Reported Trazodone Hcl 50 Mg Tablet 50 Mg PO PRN QHS PRN Analgesic [place] (Methyl Salicylate/Menthol) 28 Gm Oint...g. 1 Radha TP PRN QID PRN Mag-Al Plus Xs Suspension (Mag Hydrox/Al Hydrox/Simeth) 30 Ml Oral.susp 15 Ml PO PRN AFTMEALHC PRN Culturelle (Lactobacillus Rhamnosus Gg) 1 Each Capsule 1 Each PO BID Vimpat (Lacosamide) 200 Mg Tablet 200 Mg PO BIDAFTMEAL Cymbalta (Duloxetine Hcl) 60 Mg Capsule.dr 60 Mg PO DAILY06 Divalproex Sodium 500 Mg Tablet.dr 500 Mg PO BID Oyster Shell Calcium (Calcium Carbonate) 500 Mg Tablet 1,250 Mg PO BID66 Miralax (Polyethylene Glycol 3350) 17 Gm Powd.pack 17 Gm PO PRN DAILY PRN Milk Of Magnesia (Magnesium Hydroxide) 2,400 Mg/10 Ml Oral.susp 2,400 Mg PO PRN QHS PRN Atorvastatin Calcium 10 Mg Tablet 5 Mg PO QHS Seroquel (Quetiapine Fumarate) 25 Mg Tablet 25 Mg PO [id number] Pantoprazole Sodium 40 Mg Tablet.dr 40 Mg PO BIDBFRMEAL Vitamin D3 (Cholecalciferol (Vitamin D3)) 1,000 Unit Tablet 1,000 Unit PO DAILY Levothyroxine Sodium 75 Mcg Tablet 75 Mcg PO DAILY06 Phenobarbital 64.8 Mg Tablet 64.8 Mg PO HS Magnesium Oxide 400 Mg Tablet 400 Mg PO TID Tylenol (Acetaminophen) 325 Mg Tablet 650 Mg PO PRN Q6HRS PRN Tramadol Hcl (Tramadol HCl) 50 Mg Tablet 50 Mg PO PRN Q6HRS PRN Senna-S Tablet (Sennosides/Docusate Sodium) 1 Each Tablet 1 Tab PO PRN BID PRN Keppra (Levetiracetam) 250 Mg Tablet 750 Mg PO BIDAFTMEAL Ferrous Sulfate 325 Mg Tablet 325 Mg PO BIDAFTMEAL Bisacodyl 10 Mg Supp.rect 10 Mg RC PRN DAILY PRN Felbamate 400 Mg Tablet 800 Mg PO TID I have reviewed the current psychotropics carefully including drug interactions. Risk benefit ratio favors no change other than as noted in my dictated progress note. Diagnosis: Problems: (1) Functional diarrhea (2) urinary tract infection (3) Left hip arthroplasty (4) Severe major depression with psychotic features (5) Adjustment disorder with depressed mood (6) Bipolar affective, mixed (7) Impulse control disorder (8) Dementia, vascular, with delusions (9) Dementia, vascular, with depression (10) Uncooperative behavior (11) Behavior disturbance (12) Medical clearance for psychiatric admission HARVEY QUIJANO MD Oct 29, 2017 20:57
[2017-10-29] MEDS: PHENobarbital 32.4 MG TABLET. PO SCH (21:13)
[2017-10-30 02:12] LABS: HEMOGLOBIN A1C 5.2 % (4.8-5.6)
[2017-10-30] MEDS: DULoxetine HCL 60 MG CAPSULE.DR PO SCH (05:50)
[2017-10-30] MEDS: LEVOTHYROXINE 75 MCG TABLET PO SCH (05:50)
[2017-10-30] MEDS: CALCIUM CARBONATE 500 MG TABLET PO SCH ×2 (05:51→17:04)
[2017-10-30 06:01] VITALS: BP 135/67
[2017-10-30] MEDS: LACTOBACILLUS RHAMNOSUS GG 1 CAPSULE. PO SCH ×2 (08:33→20:04)
[2017-10-30] MEDS: FERROUS SULFATE 325 MG TABLET. PO SCH ×2 (08:33→17:04)
[2017-10-30] MEDS: CHOLECALCIFEROL (VITAMIN D3) 1,000 UNIT TABLET PO SCH (08:33)
[2017-10-30] MEDS: QUEtiapine 25 MG TABLET. PO SCH ×4 (08:33→20:05)
[2017-10-30] MEDS: PANTOPRAZOLE 40 MG TABLET. PO SCH ×2 (08:33→17:04)
[2017-10-30] MEDS: MAGNESIUM OXIDE 400 MG TABLET PO SCH ×3 (08:33→20:04)
[2017-10-30] MEDS: DIVALPROEX 125 MG CAP.SPRINK PO SCH ×2 (08:37→20:04)
[2017-10-30] MEDS: levETIRAcetam 250 MG TABLET PO SCH ×2 (08:37→17:04)
[2017-10-30] MEDS: LACOSAMIDE 50 MG TABLET PO SCH ×2 (08:37→17:04)
[2017-10-30] MEDS: FELBAMATE 400 MG TABLET PO SCH ×3 (08:37→20:06)
--- NOTE | 2017-10-30 10:37 | NUR ---
Behavior Intervention Response and Plan: BIRP Note: Behavior: Assumed Care of patient, patient located in Hallway at shift change. Patient exhibited the following behavior Calm, Compliant, Withdrawn. Brief assessment on rounds of vital signs, medication needs, lab studies, and pain. Treatment plan problems 1-2. Intervention: Patient assessed and the following interventions initiated safety checks 15 Minute Checks Personal Alarm in place , Cognitive Assessment , Head to toe Assessment. Response: After interactions and interventions patient responded in the following manner, Cooperative , Calm ,Compliant. Continue to assess behaviors and condition will continue to monitor throughout the shift as needed. Patient educated on ADL's, and hand hygiene. 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 Continue to assess patient for changes in above assessment. Monitor for medication needs, pain, and safety concerns. Hourly rounding performed to ensure safe environment.
--- NOTE | 2017-10-30 12:00 | NUR ---
SW had message from pt son yesterday asking for SW to call him regarding discharge planning. SW returned son's call. Pt son states he would like SW to reach out to regarding pt possibly returning to them for care. He states his mother had been there for about 5 years prior to moving to [facility]. He states his mother is not happy at her current placement and would like to return back to . 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 Pt son states they had moved pt to [place] with him and his , however they could not find a place for her that she or they were happy with that wasn't private pay. Pt son reports they moved her back to [facility] into where his Aunt and other family members could visit. Pt son states only his aunt Visits and those visits have decreased recently due to other issues. Pt son states he would like to move her to the [place] area so pt could be close to him and his children. SW suggested that he look into the Medicaid rules prior to going any further. Pt son states if unable to accept pt back he would then like her to return back to [place] at this time.
--- NOTE | 2017-10-30 15:00 | NUR ---
WEEKLY ACTIVITY THERAPY NOTE Date of Admission: 10/27/2017 Date of AT Assessment: 10/29/2017 Goal aimed: to increase engagement and healthy social interaction Initial goal: Pt. will participate in two individual activities fully before discharge. Weekly progress towards goal: on track Group participation level: zero to minimal Behaviors observed: Saturday and Saturday, Pt. was more alert, often made negative remarks, rolled herself back and forth in her wheelchair, moved herself to be in the middle of groups. Saturday and Saturday, Pt. is more withdrawn, less alert, slower movements and quieter speech. Plan: no change to goal
[2017-10-30 15:51] VITALS: BP 98/71
--- NOTE | 2017-10-30 20:00 | NUR ---
Behavior Intervention Response and Plan: BIRP Note: Behavior: Assumed Care of patient, patient located in Day Room at shift change. Patient exhibited the following behavior Calm, Compliant, Drowsy. Brief assessment on rounds of vital signs, medication needs, lab studies, and pain. Treatment plan problems . Intervention: Patient assessed and the following interventions initiated safety checks 15 Minute Checks Cognitive Assessment , Head to toe Assessment , Medications. Response: After interactions and interventions patient responded in the following manner, Cooperative , Compliant ,Interactive. Continue to assess behaviors and condition will continue to monitor throughout the shift as needed. Patient educated on ADL's, and hand hygiene. Plan: Continue to monitor Master Treatment Plan for patient's progress toward short term goals of Decreased Agitation, Decreased Anxiety, care home goals to return to previous living setting vs placement. Continue to assess patient for changes in above assessment. Monitor for medication needs, pain, and safety concerns. Hourly rounding performed to ensure safe environment.
[2017-10-30] MEDS: ATORVASTATIN CALCIUM 10 MG TABLET. PO SCH (20:05)
[2017-10-30] MEDS: PHENobarbital 32.4 MG TABLET. PO SCH (20:05)
--- NOTE | 2017-10-30 20:18 | PN ---
DATE: 10/29/2017 This late entry 10/29/2017 covers elements not covered in my initial note. SUBJECTIVE: I met with the patient in the evening. The patient slept 5-1/2 hours previous evening, compliant with medications. Appetite fair. She has been somewhat withdrawn, tired. Family visited her. UA has reflex to culture. May need to be treated. REVIEW OF SYSTEMS: Ambulation impaired, in wheelchair. No CV, , pulmonary, eye, ENT system symptoms on review. Reliability varies. MENTAL STATUS EXAM: Oriented to herself and situation. Speech coherent, has some latency. Abstraction fair, computation impaired, language function intact, attention span short. Mood and affect remain somewhat withdrawn, little irritable at times. LABORATORY DATA: Reviewed. IMPRESSION: Bipolar 1 disorder, mixed with psychotic features; anxiety disorder, unspecified; cognitive disorder, unspecified. PLAN: Await urine culture. Treat UTI. Continue psychotropics per initial note. May need to increase Seroquel gradually. MAN Luis QUIJANO MD DR: LOYD/eboni JOB#: [id number] / [id number]
--- NOTE | 2017-10-30 20:37 | PDOC ---
Exam Note: David Note: Please also refer to the separate dictated note~for this date of service dictated separately.~Patient seen individually. Discussed the patient with Nursing staff reviewed the chart.~Reviewed interim history and current functioning. Reviewed vital signs,~Labs/ Radiology~and current medications noted below. Continue current treatment with the changes noted in the dictated addendum note Assessment: Vital Signs: Vital Signs Date Time Temp Pulse Resp B/P (MAP) Pulse Ox O2 Delivery O2 Flow Rate FiO2 10/30/17 15:51 97.8 77 16 98/71 (80) 98 10/28/17 05:59 Room Air I&O Intake and Output 10/30/17 06:59 Intake Total 940 ml Balance 940 ml Intake Oral 940 ml Current Medications: Meds: Current Medications Divalproex Sodium (Depakote) 500 mg BID PO ; Start 10/27/17 at 21:00; Stop 10/27 at 21:00; Status DC Duloxetine HCl (Cymbalta) 60 mg DAILY06 PO Last administered on 10/30/17at 05:50 ; Start 10/28/17 at 06:00 Quetiapine Fumarate (SEROquel) 25 mg [id number] PO Last administered on 10/30/17at 20:05; Start 10/27/17 at 21:00 Trazodone HCl (Desyrel) 50 mg PRN QHS PRN PO INSOMNIA, MAY REPEAT X1 Last administered on 10/27/17at 20:56; Start 10/27/17 at 20:15 Acetaminophen (Tylenol) 650 mg PRN Q6HRS PRN PO MILD PAIN / TEMP; Start at 20:00 Calcium Carbonate/ Glycine (Oscal) 1,250 mg BID66 PO Last administered on at 17:04; Start 10/28/17 at 06:00 Vitamin D (Vitamin D3) 1,000 unit DAILY PO Last administered on 10/30/17at 08:33 ; Start 10/28/17 at 09:00 Felbamate (Felbatol) 800 mg TID PO Last administered on 10/30/17at 20:06; Start 10/27/17 at 21:00 Ferrous Sulfate (Feosol) 325 mg BIDAFTMEAL PO Last administered on 10/30/17at 17 :04; Start 10/28/17 at 09:00 Levothyroxine Sodium (Synthroid) 75 mcg DAILY06 PO Last administered on at 05:50; Start 10/28/17 at 06:00 Al Hydroxide/Mg Hydroxide (Mylanta Plus Xs) 15 ml PRN AFTMEALHC PRN PO DYSPEPSIA; Start 10/27/17 at 20:00 Multi-Ingredient Ointment (Analgesic [place]) 1 radha PRN QID PRN TP MUSCLE PAIN; Start 10/27/17 at 20:00 Senna/Docusate Sodium (Senna Plus) 1 tab PRN BID PRN PO CONSTIPATION 3RD CHOICE ; Start 10/27/17 at 20:00 Tramadol HCl (Ultram) 50 mg PRN Q6HRS PRN PO MODERATE PAIN Last administered on 10/27/17at 20:57; Start 10/27/17 at 20:00 Atorvastatin Calcium (Lipitor) 5 mg QHS PO Last administered on 10/30/17at 20:05 ; Start 10/27/17 at 21:00 Bisacodyl (Dulcolax Supp) 10 mg PRN DAILY PRN [place] CONSTIPATION; Start 10/27/17 at 20:15 Lacosamide (Vimpat) 200 mg BIDAFTMEAL PO Last administered on 10/30/17at 17:04; Start 10/27/17 at 21:00 Lactobacillus Rhamnosus (Culturelle) 1 cap BID PO Last administered on at 20:04; Start 10/27/17 at 21:00 Levetiracetam (Keppra) 750 mg BIDAFTMEAL PO Last administered on 10/30/17at 17: 04; Start 10/27/17 at 21:00 Magnesium Hydroxide (Milk Of Magnesia) 2,400 mg PRN Q4HRS PRN PO CONSTIPATION 2ND CHOICE; Start 10/27/17 at 20:15 Magnesium Oxide (Magnesium Oxide) 400 mg TID PO Last administered on 10/30/17at 20:04; Start 10/27/17 at 21:00 Pantoprazole Sodium (Protonix) 40 mg BIDBFRMEAL PO Last administered on at 17:04; Start 10/28/17 at 07:30 Phenobarbital (Luminal) 64.8 mg QHS PO Last administered on 10/30/17at 20:05; Start 10/27/17 at 21:00 Polyethylene Glycol (miraLAX) 17 gm PRN DAILY PRN PO CONSTIPATION 1ST CHOICE; Start 10/28/17 at 09:00 Divalproex Sodium (Depakote Sprinkles) 500 mg BID PO Last administered on at 08:28; Start 10/27/17 at 21:00; Stop 10/28/17 at 18:25; Status DC Divalproex Sodium (Depakote Sprinkles) 500 mg DAILY PO Last administered on at 08:37; Start 10/29/17 at 09:00 Divalproex Sodium (Depakote Sprinkles) 750 mg HS PO Last administered on at 20:04; Start 10/28/17 at 21:00 Active Scripts Active Reported Trazodone Hcl 50 Mg Tablet 50 Mg PO PRN QHS PRN Analgesic [place] (Methyl Salicylate/Menthol) 28 Gm Oint...g. 1 Radha TP PRN QID PRN Mag-Al Plus Xs Suspension (Mag Hydrox/Al Hydrox/Simeth) 30 Ml Oral.susp 15 Ml PO PRN AFTMEALHC PRN Culturelle (Lactobacillus Rhamnosus Gg) 1 Each Capsule 1 Each PO BID Vimpat (Lacosamide) 200 Mg Tablet 200 Mg PO BIDAFTMEAL Cymbalta (Duloxetine Hcl) 60 Mg Capsule.dr 60 Mg PO DAILY06 Divalproex Sodium 500 Mg Tablet.dr 500 Mg PO BID Oyster Shell Calcium (Calcium Carbonate) 500 Mg Tablet 1,250 Mg PO BID66 Miralax (Polyethylene Glycol 3350) 17 Gm Powd.pack 17 Gm PO PRN DAILY PRN Milk Of Magnesia (Magnesium Hydroxide) 2,400 Mg/10 Ml Oral.susp 2,400 Mg PO PRN QHS PRN Atorvastatin Calcium 10 Mg Tablet 5 Mg PO QHS Seroquel (Quetiapine Fumarate) 25 Mg Tablet 25 Mg PO [id number] Pantoprazole Sodium 40 Mg Tablet.dr 40 Mg PO BIDBFRMEAL Vitamin D3 (Cholecalciferol (Vitamin D3)) 1,000 Unit Tablet 1,000 Unit PO DAILY Levothyroxine Sodium 75 Mcg Tablet 75 Mcg PO DAILY06 Phenobarbital 64.8 Mg Tablet 64.8 Mg PO HS Magnesium Oxide 400 Mg Tablet 400 Mg PO TID Tylenol (Acetaminophen) 325 Mg Tablet 650 Mg PO PRN Q6HRS PRN Tramadol Hcl (Tramadol HCl) 50 Mg Tablet 50 Mg PO PRN Q6HRS PRN Senna-S Tablet (Sennosides/Docusate Sodium) 1 Each Tablet 1 Tab PO PRN BID PRN Keppra (Levetiracetam) 250 Mg Tablet 750 Mg PO BIDAFTMEAL Ferrous Sulfate 325 Mg Tablet 325 Mg PO BIDAFTMEAL Bisacodyl 10 Mg Supp.rect 10 Mg RC PRN DAILY PRN Felbamate 400 Mg Tablet 800 Mg PO TID I have reviewed the current psychotropics carefully including drug interactions. Risk benefit ratio favors no change other than as noted in my dictated progress note. Diagnosis: Problems: (1) Functional diarrhea (2) urinary tract infection (3) Left hip arthroplasty (4) Severe major depression with psychotic features (5) Adjustment disorder with depressed mood (6) Bipolar affective, mixed (7) Impulse control disorder (8) Dementia, vascular, with delusions (9) Dementia, vascular, with depression (10) Uncooperative behavior (11) Behavior disturbance (12) Medical clearance for psychiatric admission HARVEY QUIJANO MD Oct 30, 2017 20:37
[2017-10-31 05:35] VITALS: BP 99/57
[2017-10-31] MEDS: DULoxetine HCL 60 MG CAPSULE.DR PO SCH (06:01)
[2017-10-31] MEDS: LEVOTHYROXINE 75 MCG TABLET PO SCH (06:01)
[2017-10-31] MEDS: CALCIUM CARBONATE 500 MG TABLET PO SCH ×2 (06:02→17:18)
[2017-10-31 07:37] LABS: BASO # 0.1 x10^3/uL (0.0-0.2); BASO % 1 % (0-3); EOS # 0.4 x10^3/uL (0.0-0.7); EOS % 10 % (0-3); HEMATOCRIT 35.7 % (36.0-47.0); LYMPH # 1.6 x10^3/uL (1.0-4.8); LYMPH % 44 % (24-48); MEAN CORPUSCULAR HEMOGLOBIN 31 pg (25-35); MEAN CORPUSCULAR HGB CONC 34 g/dL (31-37); MEAN CORPUSCULAR VOLUME 93 fL (79-100); MONO # 0.5 x10^3/uL (0.0-1.1); MONO % 14 % (0-9); NEUT # 1.1 x10^3uL (1.8-7.7); NEUT % 31 % (31-73); PLATELET COUNT 242 x10^3/uL (140-400); RED BLOOD COUNT 3.84 x10^6/uL (3.50-5.40); RED CELL DISTRIBUTION WIDTH 13.9 % (11.5-14.5); WHITE BLOOD COUNT 3.6 x10^3/uL (4.0-11.0)
[2017-10-31 07:40] LABS: ALBUMIN 2.7 g/dL (3.4-5.0); ALBUMIN/GLOBULIN RATIO 0.8 (1.0-1.7); ALK PHOS 91 U/L (46-116); ALT (SGPT) 15 U/L (14-59); ANION GAP 1 (6-14); AST (SGOT) 13 U/L (15-37); BLOOD UREA NITROGEN 19 mg/dL (7-20); BUN/CREATININE RATIO 32 (6-20); CALCIUM 9.1 mg/dL (8.5-10.1); CARBON DIOXIDE 38 mmol/L (21-32); CHLORIDE 107 mmol/L (98-107); CREATININE 0.6 mg/dL (0.6-1.0); GFR 100.6; GLUCOSE 86 mg/dL (70-99); POTASSIUM 3.7 mmol/L (3.5-5.1); SODIUM 146 mmol/L (136-145); TOTAL BILIRUBIN 0.2 mg/dL (0.2-1.0); TOTAL PROTEIN 6.3 g/dL (6.4-8.2)
[2017-10-31 07:42] LABS: VAL ACID 58 mcg/mL (50-100)
[2017-10-31] MEDS: LACOSAMIDE 50 MG TABLET PO SCH ×2 (08:14→17:17)
[2017-10-31] MEDS: DIVALPROEX 125 MG CAP.SPRINK PO SCH ×2 (08:14→19:57)
[2017-10-31] MEDS: FERROUS SULFATE 325 MG TABLET. PO SCH ×2 (08:15→17:18)
[2017-10-31] MEDS: CHOLECALCIFEROL (VITAMIN D3) 1,000 UNIT TABLET PO SCH (08:15)
[2017-10-31] MEDS: levETIRAcetam 250 MG TABLET PO SCH ×2 (08:15→17:17)
[2017-10-31] MEDS: QUEtiapine 25 MG TABLET. PO SCH ×4 (08:15→19:57)
[2017-10-31] MEDS: LACTOBACILLUS RHAMNOSUS GG 1 CAPSULE. PO SCH ×2 (08:15→19:56)
[2017-10-31] MEDS: MAGNESIUM OXIDE 400 MG TABLET PO SCH ×3 (08:15→19:58)
[2017-10-31] MEDS: PANTOPRAZOLE 40 MG TABLET. PO SCH ×2 (08:15→17:17)
[2017-10-31] MEDS: FELBAMATE 400 MG TABLET PO SCH ×3 (08:16→19:59)
--- NOTE | 2017-10-31 08:40 | NUR ---
Behavior Intervention Response and Plan: BIRP Note: Behavior: Assumed Care of patient, patient located in Dining Room at shift change. Patient exhibited the following behavior Restless, Disorganized, Compulsive. Brief assessment on rounds of vital signs, medication needs, lab studies, and pain. Treatment plan problems 1 & 2. Intervention: Patient assessed and the following interventions initiated safety checks 15 Minute Checks Cognitive Assessment , Head to toe Assessment , Medications. Response: After interactions and interventions patient responded in the following manner, Calm , Appropriate ,Compliant. Continue to assess behaviors and condition will continue to monitor throughout the shift as needed. Patient educated on ADL's, and hand hygiene. 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 Continue to assess patient for changes in above assessment. Monitor for medication needs, pain, and safety concerns. Hourly rounding performed to ensure safe environment.
--- NOTE | 2017-10-31 14:30 | NUR ---
1430 Group. In today's group, patient spent time doing a crossword puzzel with staff. She was able to engage 1 on 1 with staff while doing a word puzzel. Patient was quiet and spent most of her time focusing to find words, or conversing with staff for assistance.
[2017-10-31 16:13] VITALS: BP 100/70
--- NOTE | 2017-10-31 18:15 | NUR ---
Patient works great with 1 on 1 interaction with staff. Patient likes to do word searches and may need assistance but will enjoy the company.
[2017-10-31] MEDS: ATORVASTATIN CALCIUM 10 MG TABLET. PO SCH (19:57)
[2017-10-31] MEDS: PHENobarbital 32.4 MG TABLET. PO SCH (19:59)
--- NOTE | 2017-10-31 20:37 | PDOC ---
Exam Note: David Note: Please also refer to the separate dictated note~for this date of service dictated separately.~Patient seen individually. Discussed the patient with Nursing staff reviewed the chart.~Reviewed interim history and current functioning. Reviewed vital signs,~Labs/ Radiology~and current medications noted below. Continue current treatment with the changes noted in the dictated addendum note Assessment: Vital Signs: Vital Signs Date Time Temp Pulse Resp B/P (MAP) Pulse Ox O2 Delivery O2 Flow Rate FiO2 10/31/17 16:13 98.0 68 17 100/70 (80) 99 Room Air I&O Intake and Output 10/31/17 06:59 Intake Total 420 ml Balance 420 ml Intake Oral 420 ml # Voids 1 Labs: Laboratory Tests Test 10/31/17 07:10 White Blood Count 3.6 x10^3/uL (4.0-11.0) L Red Blood Count 3.84 x10^6/uL (3.50-5.40) Hemoglobin 12.0 g/dL (12.0-15.5) Hematocrit 35.7 % (36.0-47.0) L Mean Corpuscular Volume 93 fL (79-100) Mean Corpuscular Hemoglobin 31 pg (25-35) Mean Corpuscular Hemoglobin Concent 34 g/dL (31-37) Red Cell Distribution Width 13.9 % (11.5-14.5) Platelet Count 242 x10^3/uL (140-400) Neutrophils (%) (Auto) 31 % (31-73) Lymphocytes (%) (Auto) 44 % (24-48) Monocytes (%) (Auto) 14 % (0-9) H Eosinophils (%) (Auto) 10 % (0-3) H Basophils (%) (Auto) 1 % (0-3) Neutrophils # (Auto) 1.1 x10^3uL (1.8-7.7) L Lymphocytes # (Auto) 1.6 x10^3/uL (1.0-4.8) Monocytes # (Auto) 0.5 x10^3/uL (0.0-1.1) Eosinophils # (Auto) 0.4 x10^3/uL (0.0-0.7) Basophils # (Auto) 0.1 x10^3/uL (0.0-0.2) Sodium Level 146 mmol/L (136-145) H Potassium Level 3.7 mmol/L (3.5-5.1) Chloride Level 107 mmol/L (98-107) Carbon Dioxide Level 38 mmol/L (21-32) H Anion Gap 1 (6-14) L Blood Urea Nitrogen 19 mg/dL (7-20) Creatinine 0.6 mg/dL (0.6-1.0) Estimated GFR (Cockcroft-Gault) 100.6 BUN/Creatinine Ratio 32 (6-20) H Glucose Level 86 mg/dL (70-99) Calcium Level 9.1 mg/dL (8.5-10.1) Total Bilirubin 0.2 mg/dL (0.2-1.0) Aspartate Amino Transferase (AST) 13 U/L (15-37) L Alanine Aminotransferase (ALT) 15 U/L (14-59) Alkaline Phosphatase 91 U/L (46-116) Total Protein 6.3 g/dL (6.4-8.2) L Albumin 2.7 g/dL (3.4-5.0) L Albumin/Globulin Ratio 0.8 (1.0-1.7) L Valproic Acid Level 58 mcg/mL (50-100) Valproic Acid Last Dose Date 10/30/2017 Valproic Acid Last Dose Time 2100 Current Medications: Meds: Current Medications Divalproex Sodium (Depakote) 500 mg BID PO ; Start 10/27/17 at 21:00; Stop 10/27 at 21:00; Status DC Duloxetine HCl (Cymbalta) 60 mg DAILY06 PO Last administered on 10/31/17at 06:01 ; Start 10/28/17 at 06:00 Quetiapine Fumarate (SEROquel) 25 mg [id number] PO Last administered on 10/31/17at 19:57; Start 10/27/17 at 21:00 Trazodone HCl (Desyrel) 50 mg PRN QHS PRN PO INSOMNIA, MAY REPEAT X1 Last administered on 10/27/17at 20:56; Start 10/27/17 at 20:15 Acetaminophen (Tylenol) 650 mg PRN Q6HRS PRN PO MILD PAIN / TEMP; Start at 20:00 Calcium Carbonate/ Glycine (Oscal) 1,250 mg BID66 PO Last administered on 17:18; Start 10/28/17 at 06:00 Vitamin D (Vitamin D3) 1,000 unit DAILY PO Last administered on 10/31/17at 08:15 ; Start 10/28/17 at 09:00 Felbamate (Felbatol) 800 mg TID PO Last administered on 10/31/17at 19:59; Start 10/27/17 at 21:00 Ferrous Sulfate (Feosol) 325 mg BIDAFTMEAL PO Last administered on 10/31/17at 17 :18; Start 10/28/17 at 09:00 Levothyroxine Sodium (Synthroid) 75 mcg DAILY06 PO Last administered on at 06:01; Start 10/28/17 at 06:00 Al Hydroxide/Mg Hydroxide (Mylanta Plus Xs) 15 ml PRN AFTMEALHC PRN PO DYSPEPSIA; Start 10/27/17 at 20:00 Multi-Ingredient Ointment (Analgesic [place]) 1 radha PRN QID PRN TP MUSCLE PAIN; Start 10/27/17 at 20:00 Senna/Docusate Sodium (Senna Plus) 1 tab PRN BID PRN PO CONSTIPATION 3RD CHOICE ; Start 10/27/17 at 20:00 Tramadol HCl (Ultram) 50 mg PRN Q6HRS PRN PO MODERATE PAIN Last administered on 10/27/17at 20:57; Start 10/27/17 at 20:00 Atorvastatin Calcium (Lipitor) 5 mg QHS PO Last administered on 10/31/17at 19:57 ; Start 10/27/17 at 21:00 Bisacodyl (Dulcolax Supp) 10 mg PRN DAILY PRN [place] CONSTIPATION; Start 10/27/17 at 20:15 Lacosamide (Vimpat) 200 mg BIDAFTMEAL PO Last administered on 10/31/17at 17:17; Start 10/27/17 at 21:00 Lactobacillus Rhamnosus (Culturelle) 1 cap BID PO Last administered on at 19:56; Start 10/27/17 at 21:00 Levetiracetam (Keppra) 750 mg BIDAFTMEAL PO Last administered on 10/31/17at 17: 17; Start 10/27/17 at 21:00 Magnesium Hydroxide (Milk Of Magnesia) 2,400 mg PRN Q4HRS PRN PO CONSTIPATION 2ND CHOICE; Start 10/27/17 at 20:15 Magnesium Oxide (Magnesium Oxide) 400 mg TID PO Last administered on 10/31/17 19:58; Start 10/27/17 at 21:00 Pantoprazole Sodium (Protonix) 40 mg BIDBFRMEAL PO Last administered on at 17:17; Start 10/28/17 at 07:30 Phenobarbital (Luminal) 64.8 mg QHS PO Last administered on 10/31/17at 19:59; Start 10/27/17 at 21:00 Polyethylene Glycol (miraLAX) 17 gm PRN DAILY PRN PO CONSTIPATION 1ST CHOICE; Start 10/28/17 at 09:00 Divalproex Sodium (Depakote Sprinkles) 500 mg BID PO Last administered on at 08:28; Start 10/27/17 at 21:00; Stop 10/28/17 at 18:25; Status DC Divalproex Sodium (Depakote Sprinkles) 500 mg DAILY PO Last administered on at 08:14; Start 10/29/17 at 09:00 Divalproex Sodium (Depakote Sprinkles) 750 mg HS PO Last administered on 19:57; Start 10/28/17 at 21:00 Active Scripts Active Reported Trazodone Hcl 50 Mg Tablet 50 Mg PO PRN QHS PRN Analgesic [place] (Methyl Salicylate/Menthol) 28 Gm Oint...g. 1 Radha TP PRN QID PRN Mag-Al Plus Xs Suspension (Mag Hydrox/Al Hydrox/Simeth) 30 Ml Oral.susp 15 Ml PO PRN AFTMEALHC PRN Culturelle (Lactobacillus Rhamnosus Gg) 1 Each Capsule 1 Each PO BID Vimpat (Lacosamide) 200 Mg Tablet 200 Mg PO BIDAFTMEAL Cymbalta (Duloxetine Hcl) 60 Mg Capsule.dr 60 Mg PO DAILY06 Divalproex Sodium 500 Mg Tablet.dr 500 Mg PO BID Oyster Shell Calcium (Calcium Carbonate) 500 Mg Tablet 1,250 Mg PO BID66 Miralax (Polyethylene Glycol 3350) 17 Gm Powd.pack 17 Gm PO PRN DAILY PRN Milk Of Magnesia (Magnesium Hydroxide) 2,400 Mg/10 Ml Oral.susp 2,400 Mg PO PRN QHS PRN Atorvastatin Calcium 10 Mg Tablet 5 Mg PO QHS Seroquel (Quetiapine Fumarate) 25 Mg Tablet 25 Mg PO [id number] Pantoprazole Sodium 40 Mg Tablet.dr 40 Mg PO BIDBFRMEAL Vitamin D3 (Cholecalciferol (Vitamin D3)) 1,000 Unit Tablet 1,000 Unit PO DAILY Levothyroxine Sodium 75 Mcg Tablet 75 Mcg PO DAILY06 Phenobarbital 64.8 Mg Tablet 64.8 Mg PO HS Magnesium Oxide 400 Mg Tablet 400 Mg PO TID Tylenol (Acetaminophen) 325 Mg Tablet 650 Mg PO PRN Q6HRS PRN Tramadol Hcl (Tramadol HCl) 50 Mg Tablet 50 Mg PO PRN Q6HRS PRN Senna-S Tablet (Sennosides/Docusate Sodium) 1 Each Tablet 1 Tab PO PRN BID PRN Keppra (Levetiracetam) 250 Mg Tablet 750 Mg PO BIDAFTMEAL Ferrous Sulfate 325 Mg Tablet 325 Mg PO BIDAFTMEAL Bisacodyl 10 Mg Supp.rect 10 Mg RC PRN DAILY PRN Felbamate 400 Mg Tablet 800 Mg PO TID I have reviewed the current psychotropics carefully including drug interactions. Risk benefit ratio favors no change other than as noted in my dictated progress note. Diagnosis: Problems: (1) Functional diarrhea (2) urinary tract infection (3) Left hip arthroplasty (4) Severe major depression with psychotic features (5) Adjustment disorder with depressed mood (6) Bipolar affective, mixed (7) Impulse control disorder (8) Dementia, vascular, with delusions (9) Dementia, vascular, with depression (10) Uncooperative behavior (11) Behavior disturbance (12) Medical clearance for psychiatric admission HARVEY QUIJANO MD Oct 31, 2017 20:37
--- NOTE | 2017-10-31 23:11 | NUR ---
Behavior Intervention Response and Plan: BIRP Note: Behavior: Assumed Care of patient, patient located in Patient Room at shift change. Patient exhibited the following behavior Calm, Compliant, Drowsy. Brief assessment on rounds of vital signs, medication needs, lab studies, and pain. Treatment plan problems 1-2. Intervention: Patient assessed and the following interventions initiated safety checks 15 Minute Checks Cognitive Assessment , Head to toe Assessment , Medications. Response: After interactions and interventions patient responded in the following manner, Cooperative , Resting. Continue to assess behaviors and condition will continue to monitor throughout the shift as needed. Patient educated on ADL's, and hand hygiene. Plan: Continue to monitor Master Treatment Plan for patient's progress toward short term goals of Decreased Agitation, Decreased Anxiety, mcc goals to return to previous living setting vs placement. Continue to assess patient for changes in above assessment. Monitor for medication needs, pain, and safety concerns. Hourly rounding performed to ensure safe environment.
[2017-11-01] MEDS: LEVOTHYROXINE 75 MCG TABLET PO SCH (05:06)
[2017-11-01] MEDS: DULoxetine HCL 60 MG CAPSULE.DR PO SCH (05:06)
[2017-11-01] MEDS: CALCIUM CARBONATE 500 MG TABLET PO SCH ×2 (05:06→17:21)
[2017-11-01 06:23] VITALS: BP 106/71
[2017-11-01] MEDS: FERROUS SULFATE 325 MG TABLET. PO SCH ×2 (08:08→17:21)
[2017-11-01] MEDS: QUEtiapine 25 MG TABLET. PO SCH ×4 (08:08→19:44)
[2017-11-01] MEDS: DIVALPROEX 125 MG CAP.SPRINK PO SCH ×2 (08:08→19:44)
[2017-11-01] MEDS: PANTOPRAZOLE 40 MG TABLET. PO SCH ×2 (08:08→17:22)
[2017-11-01] MEDS: LACTOBACILLUS RHAMNOSUS GG 1 CAPSULE. PO SCH ×2 (08:08→19:44)
[2017-11-01] MEDS: FELBAMATE 400 MG TABLET PO SCH ×3 (08:08→19:47)
[2017-11-01] MEDS: CHOLECALCIFEROL (VITAMIN D3) 1,000 UNIT TABLET PO SCH (08:08)
[2017-11-01] MEDS: MAGNESIUM OXIDE 400 MG TABLET PO SCH ×3 (08:08→19:45)
[2017-11-01] MEDS: levETIRAcetam 250 MG TABLET PO SCH ×2 (08:09→17:21)
[2017-11-01] MEDS: LACOSAMIDE 50 MG TABLET PO SCH ×2 (08:13→17:21)
[2017-11-01 15:50] VITALS: BP 89/60
[2017-11-01] MEDS: ATORVASTATIN CALCIUM 10 MG TABLET. PO SCH (19:45)
[2017-11-01] MEDS: PHENobarbital 32.4 MG TABLET. PO SCH (19:47)
--- NOTE | 2017-11-01 20:00 | NUR ---
Behavior Intervention Response and Plan: BIRP Note: Behavior: Assumed Care of patient, patient located in Hallway at shift change. Patient exhibited the following behavior Wandering, Calm, Compliant. Brief assessment on rounds of vital signs, medication needs, lab studies, and pain. Treatment plan problems . Intervention: Patient assessed and the following interventions initiated safety checks 15 Minute Checks Cognitive Assessment , Head to toe Assessment , Medications. Response: After interactions and interventions patient responded in the following manner, Restless , Compliant ,Cooperative. Continue to assess behaviors and condition will continue to monitor throughout the shift as needed. Patient educated on ADL's, and hand hygiene. 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 Continue to assess patient for changes in above assessment. Monitor for medication needs, pain, and safety concerns. Hourly rounding performed to ensure safe environment.
--- NOTE | 2017-11-01 20:44 | PDOC ---
Exam Note: David Note: Please also refer to the separate dictated note~for this date of service dictated separately.~Patient seen individually. Discussed the patient with Nursing staff reviewed the chart.~Reviewed interim history and current functioning. Reviewed vital signs,~Labs/ Radiology~and current medications noted below. Continue current treatment with the changes noted in the dictated addendum note Assessment: Vital Signs: Vital Signs Date Time Temp Pulse Resp B/P (MAP) Pulse Ox O2 Delivery O2 Flow Rate FiO2 11/01/17 15:50 96.7 68 16 89/60 (70) 97 11/01/17 06:23 Room Air I&O Intake and Output 11/01/17 07:00 Intake Total 600 ml Balance 600 ml Intake Oral 600 ml Current Medications: Meds: Current Medications Divalproex Sodium (Depakote) 500 mg BID PO ; Start 10/27/17 at 21:00; Stop 10/27 at 21:00; Status DC Duloxetine HCl (Cymbalta) 60 mg DAILY06 PO Last administered on 11/01/17at 05:06 ; Start 10/28/17 at 06:00 Quetiapine Fumarate (SEROquel) 25 mg [id number] PO Last administered on 11/01/17at 19:44; Start 10/27/17 at 21:00 Trazodone HCl (Desyrel) 50 mg PRN QHS PRN PO INSOMNIA, MAY REPEAT X1 Last administered on 10/27/17at 20:56; Start 10/27/17 at 20:15 Acetaminophen (Tylenol) 650 mg PRN Q6HRS PRN PO MILD PAIN / TEMP; Start at 20:00 Calcium Carbonate/ Glycine (Oscal) 1,250 mg BID66 PO Last administered on 17:21; Start 10/28/17 at 06:00 Vitamin D (Vitamin D3) 1,000 unit DAILY PO Last administered on 11/01/17at 08:08 ; Start 10/28/17 at 09:00 Felbamate (Felbatol) 800 mg TID PO Last administered on 11/01/17at 19:47; Start 10/27/17 at 21:00 Ferrous Sulfate (Feosol) 325 mg BIDAFTMEAL PO Last administered on 11/01/17at 17 :21; Start 10/28/17 at 09:00 Levothyroxine Sodium (Synthroid) 75 mcg DAILY06 PO Last administered on at 05:06; Start 10/28/17 at 06:00 Al Hydroxide/Mg Hydroxide (Mylanta Plus Xs) 15 ml PRN AFTMEALHC PRN PO DYSPEPSIA; Start 10/27/17 at 20:00 Multi-Ingredient Ointment (Analgesic [place]) 1 radha PRN QID PRN TP MUSCLE PAIN; Start 10/27/17 at 20:00 Senna/Docusate Sodium (Senna Plus) 1 tab PRN BID PRN PO CONSTIPATION 3RD CHOICE ; Start 10/27/17 at 20:00 Tramadol HCl (Ultram) 50 mg PRN Q6HRS PRN PO MODERATE PAIN Last administered on 10/27/17at 20:57; Start 10/27/17 at 20:00 Atorvastatin Calcium (Lipitor) 5 mg QHS PO Last administered on 11/01/17at 19:45 ; Start 10/27/17 at 21:00 Bisacodyl (Dulcolax Supp) 10 mg PRN DAILY PRN [place] CONSTIPATION; Start 10/27/17 at 20:15 Lacosamide (Vimpat) 200 mg BIDAFTMEAL PO Last administered on 11/01/17 17:21; Start 10/27/17 at 21:00 Lactobacillus Rhamnosus (Culturelle) 1 cap BID PO Last administered on at 19:44; Start 10/27/17 at 21:00 Levetiracetam (Keppra) 750 mg BIDAFTMEAL PO Last administered on 11/01/17at 17: 21; Start 10/27/17 at 21:00 Magnesium Hydroxide (Milk Of Magnesia) 2,400 mg PRN Q4HRS PRN PO CONSTIPATION 2ND CHOICE; Start 10/27/17 at 20:15 Magnesium Oxide (Magnesium Oxide) 400 mg TID PO Last administered on 11/01/17at 19:45; Start 10/27/17 at 21:00 Pantoprazole Sodium (Protonix) 40 mg BIDBFRMEAL PO Last administered on at 17:22; Start 10/28/17 at 07:30 Phenobarbital (Luminal) 64.8 mg QHS PO Last administered on 11/01/17at 19:47; Start 10/27/17 at 21:00 Polyethylene Glycol (miraLAX) 17 gm PRN DAILY PRN PO CONSTIPATION 1ST CHOICE; Start 10/28/17 at 09:00 Divalproex Sodium (Depakote Sprinkles) 500 mg BID PO Last administered on at 08:28; Start 10/27/17 at 21:00; Stop 10/28/17 at 18:25; Status DC Divalproex Sodium (Depakote Sprinkles) 500 mg DAILY PO Last administered on at 08:08; Start 10/29/17 at 09:00 Divalproex Sodium (Depakote Sprinkles) 750 mg HS PO Last administered on at 19:44; Start 10/28/17 at 21:00 Active Scripts Active Reported Trazodone Hcl 50 Mg Tablet 50 Mg PO PRN QHS PRN Analgesic [place] (Methyl Salicylate/Menthol) 28 Gm Oint...g. 1 Radha TP PRN QID PRN Mag-Al Plus Xs Suspension (Mag Hydrox/Al Hydrox/Simeth) 30 Ml Oral.susp 15 Ml PO PRN AFTMEALHC PRN Culturelle (Lactobacillus Rhamnosus Gg) 1 Each Capsule 1 Each PO BID Vimpat (Lacosamide) 200 Mg Tablet 200 Mg PO BIDAFTMEAL Cymbalta (Duloxetine Hcl) 60 Mg Capsule.dr 60 Mg PO DAILY06 Divalproex Sodium 500 Mg Tablet.dr 500 Mg PO BID Oyster Shell Calcium (Calcium Carbonate) 500 Mg Tablet 1,250 Mg PO BID66 Miralax (Polyethylene Glycol 3350) 17 Gm Powd.pack 17 Gm PO PRN DAILY PRN Milk Of Magnesia (Magnesium Hydroxide) 2,400 Mg/10 Ml Oral.susp 2,400 Mg PO PRN QHS PRN Atorvastatin Calcium 10 Mg Tablet 5 Mg PO QHS Seroquel (Quetiapine Fumarate) 25 Mg Tablet 25 Mg PO [id number] Pantoprazole Sodium 40 Mg Tablet.dr 40 Mg PO BIDBFRMEAL Vitamin D3 (Cholecalciferol (Vitamin D3)) 1,000 Unit Tablet 1,000 Unit PO DAILY Levothyroxine Sodium 75 Mcg Tablet 75 Mcg PO DAILY06 Phenobarbital 64.8 Mg Tablet 64.8 Mg PO HS Magnesium Oxide 400 Mg Tablet 400 Mg PO TID Tylenol (Acetaminophen) 325 Mg Tablet 650 Mg PO PRN Q6HRS PRN Tramadol Hcl (Tramadol HCl) 50 Mg Tablet 50 Mg PO PRN Q6HRS PRN Senna-S Tablet (Sennosides/Docusate Sodium) 1 Each Tablet 1 Tab PO PRN BID PRN Keppra (Levetiracetam) 250 Mg Tablet 750 Mg PO BIDAFTMEAL Ferrous Sulfate 325 Mg Tablet 325 Mg PO BIDAFTMEAL Bisacodyl 10 Mg Supp.rect 10 Mg RC PRN DAILY PRN Felbamate 400 Mg Tablet 800 Mg PO TID I have reviewed the current psychotropics carefully including drug interactions. Risk benefit ratio favors no change other than as noted in my dictated progress note. Diagnosis: Problems: (1) Functional diarrhea (2) urinary tract infection (3) Left hip arthroplasty (4) Severe major depression with psychotic features (5) Adjustment disorder with depressed mood (6) Bipolar affective, mixed (7) Impulse control disorder (8) Dementia, vascular, with delusions (9) Dementia, vascular, with depression (10) Uncooperative behavior (11) Behavior disturbance (12) Medical clearance for psychiatric admission HARVEY QUIJANO MD Nov 01, 2017 20:44
--- NOTE | 2017-11-01 23:38 | PN ---
DATE: 10/31/2017 This is a late entry for 10/31/2017 covers elements not covered in my initial note. SUBJECTIVE: I met with the patient in the evening. The patient was staffed at a treatment team meeting with the entire team in the morning and the patient's son, Kaushik attended the treatment team meeting. We discussed the patient's diagnosis, progress, adjustments in her psychotropics causing some temporary sedation and we are adjusting this. She slept 6-1/4 hours, works on her crossword puzzles. REVIEW OF SYSTEMS: Ambulation impaired, in wheelchair. No CV, , pulmonary, eye, ENT system symptoms on review. MENTAL STATUS EXAM: Oriented to herself and situation. Speech, moderate latency, coherent, often responses monosyllabic. Abstraction fair, computation impaired, language function intact. Mood and affect somewhat withdrawn. LABORATORY DATA: Reviewed. IMPRESSION: Unchanged from initial note. PLAN: Continue psychotropics from initial note with the recent adjustments noted previously. HARVEY QUIJANO MD DR: LOYD/eboni JOB#: [id number] / [id number]
--- NOTE | 2017-11-01 23:39 | PN ---
DATE: 10/30/2017 This is a late entry, 10/30/2017, covers the elements not covered in my initial note. SUBJECTIVE: I met with the patient in the evening. The patient slept 6-1/2 hours previous evening, irritability is better. No active aggression. No suicidal ideation. Nursing staff reported the patient's niece feels the patient is overly sedated. We have discussed that we are adjusting her psychotropics and temporarily, we may deal with over sedation and the body should adjust to this. REVIEW OF SYSTEMS: Ambulation impaired, in wheelchair. No CV, , pulmonary, eye, ENT system symptoms on review. MENTAL STATUS EXAM: Oriented to herself and situation. Speech has some latency, often responses monosyllabic. Abstraction fair, computation impaired, language function intact, attention span short. Mood and affect remain somewhat withdrawn. LABORATORY DATA: Reviewed. IMPRESSION: Unchanged from initial note. PLAN: Continue psychotropics from my initial note. HARVEY QUIJANO MD DR: LOYD/eboni JOB#: [id number] / [id number]
[2017-11-02 05:41] VITALS: BP 94/62
[2017-11-02] MEDS: LEVOTHYROXINE 75 MCG TABLET PO SCH (06:12)
[2017-11-02] MEDS: DULoxetine HCL 60 MG CAPSULE.DR PO SCH (06:12)
[2017-11-02] MEDS: CALCIUM CARBONATE 500 MG TABLET PO SCH ×2 (06:13→17:54)
[2017-11-02] MEDS: MAGNESIUM OXIDE 400 MG TABLET PO SCH ×3 (07:33→20:08)
[2017-11-02] MEDS: PANTOPRAZOLE 40 MG TABLET. PO SCH ×2 (07:33→17:54)
[2017-11-02] MEDS: FERROUS SULFATE 325 MG TABLET. PO SCH ×2 (07:33→17:54)
[2017-11-02] MEDS: CHOLECALCIFEROL (VITAMIN D3) 1,000 UNIT TABLET PO SCH (07:33)
[2017-11-02] MEDS: levETIRAcetam 250 MG TABLET PO SCH ×2 (07:33→17:54)
[2017-11-02] MEDS: LACOSAMIDE 50 MG TABLET PO SCH ×2 (07:33→17:55)
[2017-11-02] MEDS: QUEtiapine 25 MG TABLET. PO SCH ×4 (07:33→20:09)
[2017-11-02] MEDS: DIVALPROEX 125 MG CAP.SPRINK PO SCH ×2 (07:33→20:07)
[2017-11-02] MEDS: LACTOBACILLUS RHAMNOSUS GG 1 CAPSULE. PO SCH ×2 (07:33→20:08)
[2017-11-02] MEDS: FELBAMATE 400 MG TABLET PO SCH ×3 (07:34→21:16)
--- NOTE | 2017-11-02 10:36 | NUR ---
Behavior Intervention Response and Plan: BIRP Note: Behavior: Assumed Care of patient, patient located in Dining Room at shift change. Patient exhibited the following behavior Disorganized, Calm, Withdrawn. Brief assessment on rounds of vital signs, medication needs, lab studies, and pain. Treatment plan problems . Intervention: Patient assessed and the following interventions initiated safety checks 15 Minute Checks Cognitive Assessment , Head to toe Assessment , Medications. Response: After interactions and interventions patient responded in the following manner, Disorganized , Calm ,Compliant. Continue to assess behaviors and condition will continue to monitor throughout the shift as needed. Patient educated on ADL's, and hand hygiene. 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 Continue to assess patient for changes in above assessment. Monitor for medication needs, pain, and safety concerns. Hourly rounding performed to ensure safe environment.
[2017-11-02 15:55] VITALS: BP 103/71
--- NOTE | 2017-11-02 16:43 | NUR ---
pt up in [place] for meals. out to day room for groups. participates in groups. quiet. withdrawn.
[2017-11-02] MEDS: ATORVASTATIN CALCIUM 10 MG TABLET. PO SCH (20:08)
[2017-11-02] MEDS: PHENobarbital 32.4 MG TABLET. PO SCH (20:08)
--- NOTE | 2017-11-02 22:03 | PN ---
DATE: 11/01/2017 PSYCHIATRIC PROGRESS NOTE This late entry 11/01/2017 covers elements not covered in my initial note. SUBJECTIVE: The patient slept 7-1/2 hours previous evening, somewhat quiet, withdrawn. REVIEW OF SYSTEMS: Ambulation is impaired, in wheelchair. No CV, , pulmonary, eye, ENT system symptoms on review. MENTAL STATUS EXAM: Oriented to herself, situation. Speech moderate latency, often responses monosyllabic. Abstraction fair, computation impaired, language function is intact, attention span short. Mood and affect somewhat withdrawn. She is quiet. LABORATORY DATA: Her labs reviewed. IMPRESSION: Unchanged from initial note. PLAN: Continue current psychotropics. Valproic acid level is therapeutic at 58. MAN Luis QUIJANO MD DR: LOYD/eboni JOB#: [id number] / [id number]
--- NOTE | 2017-11-02 22:09 | PN ---
DATE: 11/02/2017 PSYCHIATRIC PROGRESS NOTE This note covers elements not covered in my initial note of 11/02/2017. SUBJECTIVE: Met with the patient in the afternoon. The patient slept 8 hours previous evening, remains somewhat withdrawn, oriented to herself, situation, compliant with medication, does go for groups. REVIEW OF SYSTEMS: Ambulation is impaired, in wheelchair. No CV, , pulmonary, eye, ENT system symptoms on review. MENTAL STATUS EXAM: Oriented to herself, situation. Speech moderate latency, often responses monosyllabic, low in rate and rhythm, low in volume. Insight is somewhat limited, judgment marginal, language function intact, attention span short. Mood and affect somewhat dysphoric. LABORATORY DATA: Reviewed. IMPRESSION: Unchanged from initial note. PLAN: No change from initial note. MAN Luis QUIJANO MD DR: LOYD/eboni JOB#: [id number] / [id number]
--- NOTE | 2017-11-02 23:00 | PDOC ---
Exam Note: David Note: Please also refer to the separate dictated note~for this date of service dictated separately.~Patient seen individually. Discussed the patient with Nursing staff reviewed the chart.~Reviewed interim history and current functioning. Reviewed vital signs,~Labs/ Radiology~and current medications noted below. Continue current treatment with the changes noted in the dictated addendum note Assessment: Vital Signs: Vital Signs Date Time Temp Pulse Resp B/P (MAP) Pulse Ox O2 Delivery O2 Flow Rate FiO2 11/02/17 15:55 97.0 76 16 103/71 (82) 97 Room Air I&O Intake and Output 11/02/17 06:59 Intake Total 360 ml Balance 360 ml Intake Oral 360 ml Current Medications: Meds: Current Medications Divalproex Sodium (Depakote) 500 mg BID PO ; Start 10/27/17 at 21:00; Stop 10/27 at 21:00; Status DC Duloxetine HCl (Cymbalta) 60 mg DAILY06 PO Last administered on 11/02/17at 06:12 ; Start 10/28/17 at 06:00 Quetiapine Fumarate (SEROquel) 25 mg [id number] PO Last administered on 11/02/17at 20:09; Start 10/27/17 at 21:00 Trazodone HCl (Desyrel) 50 mg PRN QHS PRN PO INSOMNIA, MAY REPEAT X1 Last administered on 10/27/17at 20:56; Start 10/27/17 at 20:15 Acetaminophen (Tylenol) 650 mg PRN Q6HRS PRN PO MILD PAIN / TEMP; Start at 20:00 Calcium Carbonate/ Glycine (Oscal) 1,250 mg BID66 PO Last administered on at 17:54; Start 10/28/17 at 06:00 Vitamin D (Vitamin D3) 1,000 unit DAILY PO Last administered on 11/02/17at 07:33 ; Start 10/28/17 at 09:00 Felbamate (Felbatol) 800 mg TID PO Last administered on 11/02/17at 21:16; Start 10/27/17 at 21:00 Ferrous Sulfate (Feosol) 325 mg BIDAFTMEAL PO Last administered on 11/02/17at 17 :54; Start 10/28/17 at 09:00 Levothyroxine Sodium (Synthroid) 75 mcg DAILY06 PO Last administered on at 06:12; Start 10/28/17 at 06:00 Al Hydroxide/Mg Hydroxide (Mylanta Plus Xs) 15 ml PRN AFTMEALHC PRN PO DYSPEPSIA; Start 10/27/17 at 20:00 Multi-Ingredient Ointment (Analgesic [place]) 1 ardha PRN QID PRN TP MUSCLE PAIN; Start 10/27/17 at 20:00 Senna/Docusate Sodium (Senna Plus) 1 tab PRN BID PRN PO CONSTIPATION 3RD CHOICE ; Start 10/27/17 at 20:00 Tramadol HCl (Ultram) 50 mg PRN Q6HRS PRN PO MODERATE PAIN Last administered on 10/27/17at 20:57; Start 10/27/17 at 20:00 Atorvastatin Calcium (Lipitor) 5 mg QHS PO Last administered on 11/02/17at 20:08 ; Start 10/27/17 at 21:00 Bisacodyl (Dulcolax Supp) 10 mg PRN DAILY PRN [place] CONSTIPATION; Start 10/27/17 at 20:15 Lacosamide (Vimpat) 200 mg BIDAFTMEAL PO Last administered on 11/02/17at 17:55; Start 10/27/17 at 21:00 Lactobacillus Rhamnosus (Culturelle) 1 cap BID PO Last administered on at 20:08; Start 10/27/17 at 21:00 Levetiracetam (Keppra) 750 mg BIDAFTMEAL PO Last administered on 11/02/17at 17: 54; Start 10/27/17 at 21:00 Magnesium Hydroxide (Milk Of Magnesia) 2,400 mg PRN Q4HRS PRN PO CONSTIPATION 2ND CHOICE; Start 10/27/17 at 20:15 Magnesium Oxide (Magnesium Oxide) 400 mg TID PO Last administered on 11/02/17at 20:08; Start 10/27/17 at 21:00 Pantoprazole Sodium (Protonix) 40 mg BIDBFRMEAL PO Last administered on at 17:54; Start 10/28/17 at 07:30 Phenobarbital (Luminal) 64.8 mg QHS PO Last administered on 11/02/17at 20:08; Start 10/27/17 at 21:00 Polyethylene Glycol (miraLAX) 17 gm PRN DAILY PRN PO CONSTIPATION 1ST CHOICE; Start 10/28/17 at 09:00 Divalproex Sodium (Depakote Sprinkles) 500 mg BID PO Last administered on at 08:28; Start 10/27/17 at 21:00; Stop 10/28/17 at 18:25; Status DC Divalproex Sodium (Depakote Sprinkles) 500 mg DAILY PO Last administered on at 07:33; Start 10/29/17 at 09:00 Divalproex Sodium (Depakote Sprinkles) 750 mg HS PO Last administered on at 20:07; Start 10/28/17 at 21:00 Active Scripts Active Reported Trazodone Hcl 50 Mg Tablet 50 Mg PO PRN QHS PRN Analgesic [place] (Methyl Salicylate/Menthol) 28 Gm Oint...g. 1 Radha TP PRN QID PRN Mag-Al Plus Xs Suspension (Mag Hydrox/Al Hydrox/Simeth) 30 Ml Oral.susp 15 Ml PO PRN AFTMEALHC PRN Culturelle (Lactobacillus Rhamnosus Gg) 1 Each Capsule 1 Each PO BID Vimpat (Lacosamide) 200 Mg Tablet 200 Mg PO BIDAFTMEAL Cymbalta (Duloxetine Hcl) 60 Mg Capsule.dr 60 Mg PO DAILY06 Divalproex Sodium 500 Mg Tablet.dr 500 Mg PO BID Oyster Shell Calcium (Calcium Carbonate) 500 Mg Tablet 1,250 Mg PO BID66 Miralax (Polyethylene Glycol 3350) 17 Gm Powd.pack 17 Gm PO PRN DAILY PRN Milk Of Magnesia (Magnesium Hydroxide) 2,400 Mg/10 Ml Oral.susp 2,400 Mg PO PRN QHS PRN Atorvastatin Calcium 10 Mg Tablet 5 Mg PO QHS Seroquel (Quetiapine Fumarate) 25 Mg Tablet 25 Mg PO [id number] Pantoprazole Sodium 40 Mg Tablet.dr 40 Mg PO BIDBFRMEAL Vitamin D3 (Cholecalciferol (Vitamin D3)) 1,000 Unit Tablet 1,000 Unit PO DAILY Levothyroxine Sodium 75 Mcg Tablet 75 Mcg PO DAILY06 Phenobarbital 64.8 Mg Tablet 64.8 Mg PO HS Magnesium Oxide 400 Mg Tablet 400 Mg PO TID Tylenol (Acetaminophen) 325 Mg Tablet 650 Mg PO PRN Q6HRS PRN Tramadol Hcl (Tramadol HCl) 50 Mg Tablet 50 Mg PO PRN Q6HRS PRN Senna-S Tablet (Sennosides/Docusate Sodium) 1 Each Tablet 1 Tab PO PRN BID PRN Keppra (Levetiracetam) 250 Mg Tablet 750 Mg PO BIDAFTMEAL Ferrous Sulfate 325 Mg Tablet 325 Mg PO BIDAFTMEAL Bisacodyl 10 Mg Supp.rect 10 Mg RC PRN DAILY PRN Felbamate 400 Mg Tablet 800 Mg PO TID I have reviewed the current psychotropics carefully including drug interactions. Risk benefit ratio favors no change other than as noted in my dictated progress note. Diagnosis: Problems: (1) Severe major depression with psychotic features (2) Adjustment disorder with depressed mood (3) Bipolar affective, mixed (4) Impulse control disorder (5) Dementia, vascular, with delusions (6) Dementia, vascular, with depression (7) Uncooperative behavior (8) Behavior disturbance (9) Medical clearance for psychiatric admission HARVEY QUIJANO MD Nov 02, 2017 23:00
--- NOTE | 2017-11-03 | NUR ---
Pt in bed before start of this shift, pt woke up and was fully med compliant.
[2017-11-03] MEDS: DULoxetine HCL 60 MG CAPSULE.DR PO SCH (05:29)
[2017-11-03] MEDS: LEVOTHYROXINE 75 MCG TABLET PO SCH (05:29)
[2017-11-03] MEDS: CALCIUM CARBONATE 500 MG TABLET PO SCH ×2 (05:29→17:53)
[2017-11-03 05:34] VITALS: BP 98/59
[2017-11-03] MEDS: MAGNESIUM OXIDE 400 MG TABLET PO SCH ×3 (07:16→19:34)
[2017-11-03] MEDS: FERROUS SULFATE 325 MG TABLET. PO SCH ×2 (07:16→17:54)
[2017-11-03] MEDS: FELBAMATE 400 MG TABLET PO SCH ×3 (07:16→19:36)
[2017-11-03] MEDS: PANTOPRAZOLE 40 MG TABLET. PO SCH ×2 (07:16→17:54)
[2017-11-03] MEDS: LACTOBACILLUS RHAMNOSUS GG 1 CAPSULE. PO SCH ×2 (07:16→19:34)
[2017-11-03] MEDS: levETIRAcetam 250 MG TABLET PO SCH ×2 (07:16→17:54)
[2017-11-03] MEDS: QUEtiapine 25 MG TABLET. PO SCH ×4 (07:16→19:34)
[2017-11-03] MEDS: DIVALPROEX 125 MG CAP.SPRINK PO SCH ×2 (07:17→19:35)
[2017-11-03] MEDS: CHOLECALCIFEROL (VITAMIN D3) 1,000 UNIT TABLET PO SCH (07:17)
[2017-11-03] MEDS: LACOSAMIDE 50 MG TABLET PO SCH ×2 (07:20→17:53)
--- NOTE | 2017-11-03 10:13 | NUR ---
Behavior Intervention Response and Plan: BIRP Note: Behavior: Assumed Care of patient, patient located in Dining Room at shift change. Patient exhibited the following behavior Disorganized, Calm, Withdrawn. Brief assessment on rounds of vital signs, medication needs, lab studies, and pain. Treatment plan problems . Intervention: Patient assessed and the following interventions initiated safety checks 15 Minute Checks Cognitive Assessment , Head to toe Assessment , Medications. Response: After interactions and interventions patient responded in the following manner, Disorganized , Calm ,Compliant. Continue to assess behaviors and condition will continue to monitor throughout the shift as needed. Patient educated on ADL's, and hand hygiene. 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 Continue to assess patient for changes in above assessment. Monitor for medication needs, pain, and safety concerns. Hourly rounding performed to ensure safe environment.
[2017-11-03 15:58] VITALS: BP 107/74
--- NOTE | 2017-11-03 18:45 | NUR ---
pt up for meals. has been more drowsy today. appetite fair. compliant with meds. no behaviors.
[2017-11-03] MEDS: ATORVASTATIN CALCIUM 10 MG TABLET. PO SCH (19:34)
[2017-11-03] MEDS: PHENobarbital 32.4 MG TABLET. PO SCH (19:35)
--- NOTE | 2017-11-03 20:07 | PDOC ---
Exam Note: David Note: Please also refer to the separate dictated note~for this date of service dictated separately.~Patient seen individually. Discussed the patient with Nursing staff reviewed the chart.~Reviewed interim history and current functioning. Reviewed vital signs,~Labs/ Radiology~and current medications noted below. Continue current treatment with the changes noted in the dictated addendum note Assessment: Vital Signs: Vital Signs Date Time Temp Pulse Resp B/P (MAP) Pulse Ox O2 Delivery O2 Flow Rate FiO2 11/03/17 15:58 96.7 64 18 107/74 (85) 97 11/02/17 15:55 Room Air I&O Intake and Output 11/03/17 06:59 Intake Total 960 ml Balance 960 ml Intake Oral 960 ml Current Medications: Meds: Current Medications Divalproex Sodium (Depakote) 500 mg BID PO ; Start 10/27/17 at 21:00; Stop 10/27 at 21:00; Status DC Duloxetine HCl (Cymbalta) 60 mg DAILY06 PO Last administered on 11/03/17at 05:29 ; Start 10/28/17 at 06:00 Quetiapine Fumarate (SEROquel) 25 mg [id number] PO Last administered on 11/03/17 19:34; Start 10/27/17 at 21:00 Trazodone HCl (Desyrel) 50 mg PRN QHS PRN PO INSOMNIA, MAY REPEAT X1 Last administered on 10/27/17at 20:56; Start 10/27/17 at 20:15 Acetaminophen (Tylenol) 650 mg PRN Q6HRS PRN PO MILD PAIN / TEMP; Start at 20:00 Calcium Carbonate/ Glycine (Oscal) 1,250 mg BID66 PO Last administered on at 17:53; Start 10/28/17 at 06:00 Vitamin D (Vitamin D3) 1,000 unit DAILY PO Last administered on 11/03/17 07:17 ; Start 10/28/17 at 09:00 Felbamate (Felbatol) 800 mg TID PO Last administered on 11/03/17 19:36; Start 10/27/17 at 21:00 Ferrous Sulfate (Feosol) 325 mg BIDAFTMEAL PO Last administered on 11/03/17at 17 :54; Start 10/28/17 at 09:00 Levothyroxine Sodium (Synthroid) 75 mcg DAILY06 PO Last administered on 05:29; Start 10/28/17 at 06:00 Al Hydroxide/Mg Hydroxide (Mylanta Plus Xs) 15 ml PRN AFTMEALHC PRN PO DYSPEPSIA; Start 10/27/17 at 20:00 Multi-Ingredient Ointment (Analgesic [place]) 1 radha PRN QID PRN TP MUSCLE PAIN; Start 10/27/17 at 20:00 Senna/Docusate Sodium (Senna Plus) 1 tab PRN BID PRN PO CONSTIPATION 3RD CHOICE ; Start 10/27/17 at 20:00 Tramadol HCl (Ultram) 50 mg PRN Q6HRS PRN PO MODERATE PAIN Last administered on 10/27/17at 20:57; Start 10/27/17 at 20:00 Atorvastatin Calcium (Lipitor) 5 mg QHS PO Last administered on 11/03/17 19:34 ; Start 10/27/17 at 21:00 Bisacodyl (Dulcolax Supp) 10 mg PRN DAILY PRN [place] CONSTIPATION; Start 10/27/17 at 20:15 Lacosamide (Vimpat) 200 mg BIDAFTMEAL PO Last administered on 11/03/17 17:53; Start 10/27/17 at 21:00 Lactobacillus Rhamnosus (Culturelle) 1 cap BID PO Last administered on 19:34; Start 10/27/17 at 21:00 Levetiracetam (Keppra) 750 mg BIDAFTMEAL PO Last administered on 11/03/17 17: 54; Start 10/27/17 at 21:00 Magnesium Hydroxide (Milk Of Magnesia) 2,400 mg PRN Q4HRS PRN PO CONSTIPATION 2ND CHOICE; Start 10/27/17 at 20:15 Magnesium Oxide (Magnesium Oxide) 400 mg TID PO Last administered on 11/03/17 19:34; Start 10/27/17 at 21:00 Pantoprazole Sodium (Protonix) 40 mg BIDBFRMEAL PO Last administered on 17:54; Start 10/28/17 at 07:30 Phenobarbital (Luminal) 64.8 mg QHS PO Last administered on 7/22/18at 19:35; Start 10/27/17 at 21:00 Polyethylene Glycol (miraLAX) 17 gm PRN DAILY PRN PO CONSTIPATION 1ST CHOICE; Start 10/28/17 at 09:00 Divalproex Sodium (Depakote Sprinkles) 500 mg BID PO Last administered on at 08:28; Start 10/27/17 at 21:00; Stop 10/28/17 at 18:25; Status DC Divalproex Sodium (Depakote Sprinkles) 500 mg DAILY PO Last administered on at 07:17; Start 10/29/17 at 09:00 Divalproex Sodium (Depakote Sprinkles) 750 mg HS PO Last administered on at 19:35; Start 10/28/17 at 21:00 Active Scripts Active Reported Trazodone Hcl 50 Mg Tablet 50 Mg PO PRN QHS PRN Analgesic [place] (Methyl Salicylate/Menthol) 28 Gm Oint...g. 1 Radha TP PRN QID PRN Mag-Al Plus Xs Suspension (Mag Hydrox/Al Hydrox/Simeth) 30 Ml Oral.susp 15 Ml PO PRN AFTMEALHC PRN Culturelle (Lactobacillus Rhamnosus Gg) 1 Each Capsule 1 Each PO BID Vimpat (Lacosamide) 200 Mg Tablet 200 Mg PO BIDAFTMEAL Cymbalta (Duloxetine Hcl) 60 Mg Capsule.dr 60 Mg PO DAILY06 Divalproex Sodium 500 Mg Tablet.dr 500 Mg PO BID Oyster Shell Calcium (Calcium Carbonate) 500 Mg Tablet 1,250 Mg PO BID66 Miralax (Polyethylene Glycol 3350) 17 Gm Powd.pack 17 Gm PO PRN DAILY PRN Milk Of Magnesia (Magnesium Hydroxide) 2,400 Mg/10 Ml Oral.susp 2,400 Mg PO PRN QHS PRN Atorvastatin Calcium 10 Mg Tablet 5 Mg PO QHS Seroquel (Quetiapine Fumarate) 25 Mg Tablet 25 Mg PO [id number] Pantoprazole Sodium 40 Mg Tablet.dr 40 Mg PO BIDBFRMEAL Vitamin D3 (Cholecalciferol (Vitamin D3)) 1,000 Unit Tablet 1,000 Unit PO DAILY Levothyroxine Sodium 75 Mcg Tablet 75 Mcg PO DAILY06 Phenobarbital 64.8 Mg Tablet 64.8 Mg PO HS Magnesium Oxide 400 Mg Tablet 400 Mg PO TID Tylenol (Acetaminophen) 325 Mg Tablet 650 Mg PO PRN Q6HRS PRN Tramadol Hcl (Tramadol HCl) 50 Mg Tablet 50 Mg PO PRN Q6HRS PRN Senna-S Tablet (Sennosides/Docusate Sodium) 1 Each Tablet 1 Tab PO PRN BID PRN Keppra (Levetiracetam) 250 Mg Tablet 750 Mg PO BIDAFTMEAL Ferrous Sulfate 325 Mg Tablet 325 Mg PO BIDAFTMEAL Bisacodyl 10 Mg Supp.rect 10 Mg RC PRN DAILY PRN Felbamate 400 Mg Tablet 800 Mg PO TID I have reviewed the current psychotropics carefully including drug interactions. Risk benefit ratio favors no change other than as noted in my dictated progress note. Diagnosis: Problems: (1) Functional diarrhea (2) urinary tract infection (3) Left hip arthroplasty (4) Severe major depression with psychotic features (5) Adjustment disorder with depressed mood (6) Bipolar affective, mixed (7) Impulse control disorder (8) Dementia, vascular, with delusions (9) Dementia, vascular, with depression (10) Uncooperative behavior (11) Behavior disturbance (12) Medical clearance for psychiatric admission HARVEY QUIJANO MD Nov 03, 2017 20:07
--- NOTE | 2017-11-03 23:14 | NUR ---
Pt wheeled around in WC by other pts and staff. Pt social with staff and peers this shift, compliant with meds, no behaviors noted.
[2017-11-04] MEDS: LEVOTHYROXINE 75 MCG TABLET PO SCH (05:46)
[2017-11-04] MEDS: CALCIUM CARBONATE 500 MG TABLET PO SCH ×2 (05:46→16:38)
[2017-11-04] MEDS: DULoxetine HCL 60 MG CAPSULE.DR PO SCH (05:46)
[2017-11-04 06:15] VITALS: BP 94/60
[2017-11-04] MEDS: levETIRAcetam 250 MG TABLET PO SCH ×2 (08:34→16:39)
[2017-11-04] MEDS: CHOLECALCIFEROL (VITAMIN D3) 1,000 UNIT TABLET PO SCH (08:34)
[2017-11-04] MEDS: DIVALPROEX 125 MG CAP.SPRINK PO SCH ×2 (08:34→19:36)
[2017-11-04] MEDS: QUEtiapine 25 MG TABLET. PO SCH ×4 (08:34→19:38)
[2017-11-04] MEDS: LACTOBACILLUS RHAMNOSUS GG 1 CAPSULE. PO SCH ×2 (08:34→19:38)
[2017-11-04] MEDS: FELBAMATE 400 MG TABLET PO SCH ×3 (08:34→19:38)
[2017-11-04] MEDS: FERROUS SULFATE 325 MG TABLET. PO SCH ×2 (08:34→16:39)
[2017-11-04] MEDS: PANTOPRAZOLE 40 MG TABLET. PO SCH ×2 (08:34→16:38)
[2017-11-04] MEDS: MAGNESIUM OXIDE 400 MG TABLET PO SCH ×3 (08:34→19:38)
[2017-11-04] MEDS: LACOSAMIDE 50 MG TABLET PO SCH ×2 (08:36→16:38)
--- NOTE | 2017-11-04 15:12 | NUR ---
Behavior Intervention Response and Plan: BIRP Note: Behavior: Assumed Care of patient, patient located in Day Room at shift change. Patient exhibited the following behavior Calm, Withdrawn, . Brief assessment on rounds of vital signs, medication needs, lab studies, and pain. Treatment plan problems 1 and 2. Intervention: Patient assessed and the following interventions initiated safety checks 15 Minute Checks Cognitive Assessment , Head to toe Assessment , Medications. Response: After interactions and interventions patient responded in the following manner, Calm , Compliant ,Withdrawn. Continue to assess behaviors and condition will continue to monitor throughout the shift as needed. Patient educated on ADL's, and hand hygiene. 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 Continue to assess patient for changes in above assessment. Monitor for medication needs, pain, and safety concerns. Hourly rounding performed to ensure safe environment.
[2017-11-04 15:25] LABS: ALBUMIN 2.9 g/dL (3.4-5.0); ALBUMIN/GLOBULIN RATIO 0.8 (1.0-1.7); CALCIUM 9.3 mg/dL (8.5-10.1); CREATININE 0.6 mg/dL (0.6-1.0); GFR 100.6; POTASSIUM 3.8 mmol/L (3.5-5.1); TOTAL BILIRUBIN 0.2 mg/dL (0.2-1.0); TOTAL PROTEIN 6.6 g/dL (6.4-8.2)
[2017-11-04 15:58] VITALS: BP 98/66
[2017-11-04] MEDS: ATORVASTATIN CALCIUM 10 MG TABLET. PO SCH (19:39)
--- NOTE | 2017-11-04 20:00 | NUR ---
Behavior Intervention Response and Plan: BIRP Note: Behavior: Assumed Care of patient, patient located in Hallway at shift change. Patient exhibited the following behavior Calm, Withdrawn, Compliant. Brief assessment on rounds of vital signs, medication needs, lab studies, and pain. Treatment plan problems . Intervention: Patient assessed and the following interventions initiated safety checks 15 Minute Checks Cognitive Assessment , Head to toe Assessment , Medications. Response: After interactions and interventions patient responded in the following manner, Calm , Compliant ,Cooperative. Continue to assess behaviors and condition will continue to monitor throughout the shift as needed. Patient educated on ADL's, and hand hygiene. 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 Continue to assess patient for changes in above assessment. Monitor for medication needs, pain, and safety concerns. Hourly rounding performed to ensure safe environment.
--- NOTE | 2017-11-04 20:31 | PDOC ---
Exam Note: David Note: Please also refer to the separate dictated note~for this date of service dictated separately.~Patient seen individually. Discussed the patient with Nursing staff reviewed the chart.~Reviewed interim history and current functioning. Reviewed vital signs,~Labs/ Radiology~and current medications noted below. Continue current treatment with the changes noted in the dictated addendum note Assessment: Vital Signs: Vital Signs Date Time Temp Pulse Resp B/P (MAP) Pulse Ox O2 Delivery O2 Flow Rate FiO2 11/04/17 15:58 97.8 62 18 98/66 (77) 99 11/02/17 15:55 Room Air I&O Intake and Output 11/04/17 07:00 Intake Total 905 ml Balance 905 ml Intake Oral 905 ml # Bowel Movements 1 Labs: Laboratory Tests Test 11/04/17 14:30 Sodium Level 144 mmol/L (136-145) Potassium Level 3.8 mmol/L (3.5-5.1) Chloride Level 107 mmol/L (98-107) Carbon Dioxide Level 34 mmol/L (21-32) H Anion Gap 3 (6-14) L Blood Urea Nitrogen 34 mg/dL (7-20) H Creatinine 0.6 mg/dL (0.6-1.0) Estimated GFR (Cockcroft-Gault) 100.6 BUN/Creatinine Ratio 57 (6-20) H Glucose Level 125 mg/dL (70-99) H Calcium Level 9.3 mg/dL (8.5-10.1) Total Bilirubin 0.2 mg/dL (0.2-1.0) Aspartate Amino Transferase (AST) 13 U/L (15-37) L Alanine Aminotransferase (ALT) 15 U/L (14-59) Alkaline Phosphatase 94 U/L (46-116) Total Protein 6.6 g/dL (6.4-8.2) Albumin 2.9 g/dL (3.4-5.0) L Albumin/Globulin Ratio 0.8 (1.0-1.7) L Current Medications: Meds: Current Medications Divalproex Sodium (Depakote) 500 mg BID PO ; Start 10/27/17 at 21:00; Stop 10/27 at 21:00; Status DC Duloxetine HCl (Cymbalta) 60 mg DAILY06 PO Last administered on 11/04/17at 05:46 ; Start 10/28/17 at 06:00 Quetiapine Fumarate (SEROquel) 25 mg [id number] PO Last administered on 11/04/17at 16:39; Start 10/27/17 at 21:00; Stop 11/04/17 at 18:26; Status DC Trazodone HCl (Desyrel) 50 mg PRN QHS PRN PO INSOMNIA, MAY REPEAT X1 Last administered on 10/27/17at 20:56; Start 10/27/17 at 20:15 Acetaminophen (Tylenol) 650 mg PRN Q6HRS PRN PO MILD PAIN / TEMP Last administered on 11/04/17 08:52; Start 10/27/17 at 20:00 Calcium Carbonate/ Glycine (Oscal) 1,250 mg BID66 PO Last administered on at 16:38; Start 10/28/17 at 06:00 Vitamin D (Vitamin D3) 1,000 unit DAILY PO Last administered on 11/04/17at 08:34 ; Start 10/28/17 at 09:00 Felbamate (Felbatol) 800 mg TID PO Last administered on 11/04/17 19:38; Start 10/27/17 at 21:00 Ferrous Sulfate (Feosol) 325 mg BIDAFTMEAL PO Last administered on 11/04/17at 16 :39; Start 10/28/17 at 09:00 Levothyroxine Sodium (Synthroid) 75 mcg DAILY06 PO Last administered on at 05:46; Start 10/28/17 at 06:00 Al Hydroxide/Mg Hydroxide (Mylanta Plus Xs) 15 ml PRN AFTMEALHC PRN PO DYSPEPSIA; Start 10/27/17 at 20:00 Multi-Ingredient Ointment (Analgesic [place]) 1 radha PRN QID PRN TP MUSCLE PAIN; Start 10/27/17 at 20:00 Senna/Docusate Sodium (Senna Plus) 1 tab PRN BID PRN PO CONSTIPATION 3RD CHOICE ; Start 10/27/17 at 20:00 Tramadol HCl (Ultram) 50 mg PRN Q6HRS PRN PO MODERATE PAIN Last administered on 10/27/17at 20:57; Start 10/27/17 at 20:00 Atorvastatin Calcium (Lipitor) 5 mg QHS PO Last administered on 11/04/17 19:39 ; Start 10/27/17 at 21:00 Bisacodyl (Dulcolax Supp) 10 mg PRN DAILY PRN [place] CONSTIPATION; Start 10/27/17 at 20:15 Lacosamide (Vimpat) 200 mg BIDAFTMEAL PO Last administered on 11/04/17 16:38; Start 10/27/17 at 21:00 Lactobacillus Rhamnosus (Culturelle) 1 cap BID PO Last administered on 19:38; Start 10/27/17 at 21:00 Levetiracetam (Keppra) 750 mg BIDAFTMEAL PO Last administered on 11/04/17 16: 39; Start 10/27/17 at 21:00 Magnesium Hydroxide (Milk Of Magnesia) 2,400 mg PRN Q4HRS PRN PO CONSTIPATION 2ND CHOICE; Start 10/27/17 at 20:15 Magnesium Oxide (Magnesium Oxide) 400 mg TID PO Last administered on 11/04/17 19:38; Start 10/27/17 at 21:00 Pantoprazole Sodium (Protonix) 40 mg BIDBFRMEAL PO Last administered on 16:38; Start 10/28/17 at 07:30 Phenobarbital (Luminal) 64.8 mg QHS PO Last administered on 11/03/17 19:35; Start 10/27/17 at 21:00 Polyethylene Glycol (miraLAX) 17 gm PRN DAILY PRN PO CONSTIPATION 1ST CHOICE; Start 10/28/17 at 09:00 Divalproex Sodium (Depakote Sprinkles) 500 mg BID PO Last administered on 08:28; Start 10/27/17 at 21:00; Stop 10/28/17 at 18:25; Status DC Divalproex Sodium (Depakote Sprinkles) 500 mg DAILY PO Last administered on 08:34; Start 10/29/17 at 09:00 Divalproex Sodium (Depakote Sprinkles) 750 mg HS PO Last administered on 19:36; Start 10/28/17 at 21:00 Quetiapine Fumarate (SEROquel) 12.5 mg [id number] PO Last administered on 7/23/ 18at 19:38; Start 11/04/17 at 21:00 Active Scripts Active Reported Trazodone Hcl 50 Mg Tablet 50 Mg PO PRN QHS PRN Analgesic [place] (Methyl Salicylate/Menthol) 28 Gm Oint...g. 1 Radha TP PRN QID PRN Mag-Al Plus Xs Suspension (Mag Hydrox/Al Hydrox/Simeth) 30 Ml Oral.susp 15 Ml PO PRN AFTMEALHC PRN Culturelle (Lactobacillus Rhamnosus Gg) 1 Each Capsule 1 Each PO BID Vimpat (Lacosamide) 200 Mg Tablet 200 Mg PO BIDAFTMEAL Cymbalta (Duloxetine Hcl) 60 Mg Capsule.dr 60 Mg PO DAILY06 Divalproex Sodium 500 Mg Tablet.dr 500 Mg PO BID Oyster Shell Calcium (Calcium Carbonate) 500 Mg Tablet 1,250 Mg PO BID66 Miralax (Polyethylene Glycol 3350) 17 Gm Powd.pack 17 Gm PO PRN DAILY PRN Milk Of Magnesia (Magnesium Hydroxide) 2,400 Mg/10 Ml Oral.susp 2,400 Mg PO PRN QHS PRN Atorvastatin Calcium 10 Mg Tablet 5 Mg PO QHS Seroquel (Quetiapine Fumarate) 25 Mg Tablet 25 Mg PO [id number] Pantoprazole Sodium 40 Mg Tablet.dr 40 Mg PO BIDBFRMEAL Vitamin D3 (Cholecalciferol (Vitamin D3)) 1,000 Unit Tablet 1,000 Unit PO DAILY Levothyroxine Sodium 75 Mcg Tablet 75 Mcg PO DAILY06 Phenobarbital 64.8 Mg Tablet 64.8 Mg PO HS Magnesium Oxide 400 Mg Tablet 400 Mg PO TID Tylenol (Acetaminophen) 325 Mg Tablet 650 Mg PO PRN Q6HRS PRN Tramadol Hcl (Tramadol HCl) 50 Mg Tablet 50 Mg PO PRN Q6HRS PRN Senna-S Tablet (Sennosides/Docusate Sodium) 1 Each Tablet 1 Tab PO PRN BID PRN Keppra (Levetiracetam) 250 Mg Tablet 750 Mg PO BIDAFTMEAL Ferrous Sulfate 325 Mg Tablet 325 Mg PO BIDAFTMEAL Bisacodyl 10 Mg Supp.rect 10 Mg RC PRN DAILY PRN Felbamate 400 Mg Tablet 800 Mg PO TID I have reviewed the current psychotropics carefully including drug interactions. Risk benefit ratio favors no change other than as noted in my dictated progress note. Diagnosis: Problems: (1) Functional diarrhea (2) urinary tract infection (3) Left hip arthroplasty (4) Severe major depression with psychotic features (5) Adjustment disorder with depressed mood (6) Bipolar affective, mixed (7) Impulse control disorder (8) Dementia, vascular, with delusions (9) Dementia, vascular, with depression (10) Uncooperative behavior (11) Behavior disturbance (12) Medical clearance for psychiatric admission HARVEY QUIJANO MD Nov 04, 2017 20:31
--- NOTE | 2017-11-04 20:52 | PN ---
DATE: 11/03/2017 This is a late entry for 11/03/2017 covers elements not covered in my initial note. SUBJECTIVE: I met with the patient in the evening. The patient has been somewhat drowsy. Appetite is poor. We will check a CMP in the morning of 11/04/2017. She has not been aggressive; however. REVIEW OF SYSTEMS: Ambulation impaired, in wheelchair. No CV, , pulmonary, eye, ENT system symptoms on review. MENTAL STATUS EXAM: Oriented to herself and situation. Speech moderate latency, low in rate and rhythm, low in volume. Abstraction fair, computation impaired, language function intact. Mood and affect withdrawn. IMPRESSION: Unchanged from initial note. PLAN: No change from a psychiatric standpoint from initial note. MAN Luis QUIJANO MD DR: LOYD/eboni JOB#: [id number] / [id number]
[2017-11-04] MEDS: PHENobarbital 32.4 MG TABLET. PO SCH (21:04)
[2017-11-05 05:45] VITALS: BP 96/61
[2017-11-05] MEDS: CALCIUM CARBONATE 500 MG TABLET PO SCH ×2 (05:48→17:23)
[2017-11-05] MEDS: LEVOTHYROXINE 75 MCG TABLET PO SCH (05:48)
[2017-11-05] MEDS: DULoxetine HCL 60 MG CAPSULE.DR PO SCH (05:52)
[2017-11-05] MEDS: LACTOBACILLUS RHAMNOSUS GG 1 CAPSULE. PO SCH ×2 (08:05→20:52)
[2017-11-05] MEDS: FERROUS SULFATE 325 MG TABLET. PO SCH ×2 (08:06→17:25)
[2017-11-05] MEDS: QUEtiapine 25 MG TABLET. PO SCH ×4 (08:06→19:57)
[2017-11-05] MEDS: CHOLECALCIFEROL (VITAMIN D3) 1,000 UNIT TABLET PO SCH (08:06)
[2017-11-05] MEDS: levETIRAcetam 250 MG TABLET PO SCH ×2 (08:06→17:21)
[2017-11-05] MEDS: PANTOPRAZOLE 40 MG TABLET. PO SCH ×2 (08:07→17:21)
[2017-11-05] MEDS: LACOSAMIDE 50 MG TABLET PO SCH ×2 (08:07→17:24)
[2017-11-05] MEDS: MAGNESIUM OXIDE 400 MG TABLET PO SCH ×3 (08:07→20:52)
[2017-11-05] MEDS: DIVALPROEX 125 MG CAP.SPRINK PO SCH ×2 (08:08→19:55)
[2017-11-05] MEDS: FELBAMATE 400 MG TABLET PO SCH ×3 (08:11→20:52)
--- NOTE | 2017-11-05 15:14 | NUR ---
Behavior Intervention Response and Plan: BIRP Note: Behavior: Assumed Care of patient, patient located in Day Room at shift change. Patient exhibited the following behavior Calm, Withdrawn, compliant . Brief assessment on rounds of vital signs, medication needs, lab studies, and pain. Treatment plan problems 1 and 2. Intervention: Patient assessed and the following interventions initiated safety checks 15 Minute Checks Cognitive Assessment , Head to toe Assessment , Medications. Response: After interactions and interventions patient responded in the following manner, Calm , Compliant ,Withdrawn. Continue to assess behaviors and condition will continue to monitor throughout the shift as needed. Patient educated on ADL's, and hand hygiene. 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 Continue to assess patient for changes in above assessment. Monitor for medication needs, pain, and safety concerns. Hourly rounding performed to ensure safe environment.
[2017-11-05 15:55] VITALS: BP 96/65
[2017-11-05] MEDS: PHENobarbital 32.4 MG TABLET. PO SCH (19:56)
--- NOTE | 2017-11-05 20:00 | NUR ---
Behavior Intervention Response and Plan: BIRP Note: Behavior: Assumed Care of patient, patient located in Patient Room at shift change. Patient exhibited the following behavior Calm, Drowsy, Cooperative. Brief assessment on rounds of vital signs, medication needs, lab studies, and pain. Treatment plan problems . Intervention: Patient assessed and the following interventions initiated safety checks 15 Minute Checks Cognitive Assessment , Head to toe Assessment , Medications. Response: After interactions and interventions patient responded in the following manner, Drowsy , Calm ,Compliant. Continue to assess behaviors and condition will continue to monitor throughout the shift as needed. Patient educated on ADL's, and hand hygiene. 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 Continue to assess patient for changes in above assessment. Monitor for medication needs, pain, and safety concerns. Hourly rounding performed to ensure safe environment.
[2017-11-05] MEDS: ATORVASTATIN CALCIUM 10 MG TABLET. PO SCH (20:52)
--- NOTE | 2017-11-05 21:14 | PDOC ---
Exam Note: David Note: Please also refer to the separate dictated note~for this date of service dictated separately.~Patient seen individually. Discussed the patient with Nursing staff reviewed the chart.~Reviewed interim history and current functioning. Reviewed vital signs,~Labs/ Radiology~and current medications noted below. Continue current treatment with the changes noted in the dictated addendum note Assessment: Vital Signs: Vital Signs Date Time Temp Pulse Resp B/P (MAP) Pulse Ox O2 Delivery O2 Flow Rate FiO2 11/05/17 15:55 97.9 68 18 96/65 (75) 97 11/02/17 15:55 Room Air I&O Intake and Output 11/05/17 07:00 Intake Total 360 ml Balance 360 ml Intake Oral 360 ml Current Medications: Meds: Current Medications Divalproex Sodium (Depakote) 500 mg BID PO ; Start 10/27/17 at 21:00; Stop 10/27 at 21:00; Status DC Duloxetine HCl (Cymbalta) 60 mg DAILY06 PO Last administered on 11/05/17at 05:52 ; Start 10/28/17 at 06:00 Quetiapine Fumarate (SEROquel) 25 mg [id number] PO Last administered on 11/04/17at 16:39; Start 10/27/17 at 21:00; Stop 11/04/17 at 18:26; Status DC Trazodone HCl (Desyrel) 50 mg PRN QHS PRN PO INSOMNIA, MAY REPEAT X1 Last administered on 10/27/17at 20:56; Start 10/27/17 at 20:15 Acetaminophen (Tylenol) 650 mg PRN Q6HRS PRN PO MILD PAIN / TEMP Last administered on 11/04/17at 08:52; Start 10/27/17 at 20:00 Calcium Carbonate/ Glycine (Oscal) 1,250 mg BID66 PO Last administered on at 17:23; Start 10/28/17 at 06:00 Vitamin D (Vitamin D3) 1,000 unit DAILY PO Last administered on 11/05/17at 08:06 ; Start 10/28/17 at 09:00 Felbamate (Felbatol) 800 mg TID PO Last administered on 11/05/17at 20:52; Start 10/27/17 at 21:00 Ferrous Sulfate (Feosol) 325 mg BIDAFTMEAL PO Last administered on 11/05/17 17 :25; Start 10/28/17 at 09:00 Levothyroxine Sodium (Synthroid) 75 mcg DAILY06 PO Last administered on 05:48; Start 10/28/17 at 06:00 Al Hydroxide/Mg Hydroxide (Mylanta Plus Xs) 15 ml PRN AFTMEALHC PRN PO DYSPEPSIA; Start 10/27/17 at 20:00 Multi-Ingredient Ointment (Analgesic Iaeger) 1 radha PRN QID PRN TP MUSCLE PAIN; Start 10/27/17 at 20:00 Senna/Docusate Sodium (Senna Plus) 1 tab PRN BID PRN PO CONSTIPATION 3RD CHOICE ; Start 10/27/17 at 20:00 Tramadol HCl (Ultram) 50 mg PRN Q6HRS PRN PO MODERATE PAIN Last administered on 10/27/17 20:57; Start 10/27/17 at 20:00 Atorvastatin Calcium (Lipitor) 5 mg QHS PO Last administered on 11/05/17 20:52 ; Start 10/27/17 at 21:00 Bisacodyl (Dulcolax Supp) 10 mg PRN DAILY PRN DC CONSTIPATION; Start 10/27/17 at 20:15 Lacosamide (Vimpat) 200 mg BIDAFTMEAL PO Last administered on 11/05/17 17:24; Start 10/27/17 at 21:00 Lactobacillus Rhamnosus (Culturelle) 1 cap BID PO Last administered on 20:52; Start 10/27/17 at 21:00 Levetiracetam (Keppra) 750 mg BIDAFTMEAL PO Last administered on 11/05/17 17: 21; Start 10/27/17 at 21:00 Magnesium Hydroxide (Milk Of Magnesia) 2,400 mg PRN Q4HRS PRN PO CONSTIPATION 2ND CHOICE; Start 10/27/17 at 20:15 Magnesium Oxide (Magnesium Oxide) 400 mg TID PO Last administered on 11/05/17 20:52; Start 10/27/17 at 21:00 Pantoprazole Sodium (Protonix) 40 mg BIDBFRMEAL PO Last administered on 17:21; Start 7/16/18 at 07:30 Phenobarbital (Luminal) 64.8 mg QHS PO Last administered on 11/05/17 19:56; Start 10/27/17 at 21:00 Polyethylene Glycol (miraLAX) 17 gm PRN DAILY PRN PO CONSTIPATION 1ST CHOICE; Start 10/28/17 at 09:00 Divalproex Sodium (Depakote Sprinkles) 500 mg BID PO Last administered on 08:28; Start 10/27/17 at 21:00; Stop 10/28/17 at 18:25; Status DC Divalproex Sodium (Depakote Sprinkles) 500 mg DAILY PO Last administered on 08:08; Start 10/29/17 at 09:00 Divalproex Sodium (Depakote Sprinkles) 750 mg HS PO Last administered on 19:55; Start 10/28/17 at 21:00 Quetiapine Fumarate (SEROquel) 12.5 mg [id number] PO Last administered on 19:57; Start 11/04/17 at 21:00 Active Scripts Active Reported Trazodone Hcl 50 Mg Tablet 50 Mg PO PRN QHS PRN Analgesic Iaeger (Methyl Salicylate/Menthol) 28 Gm Oint...g. 1 Radha TP PRN QID PRN Mag-Al Plus Xs Suspension (Mag Hydrox/Al Hydrox/Simeth) 30 Ml Oral.susp 15 Ml PO PRN AFTMEALHC PRN Culturelle (Lactobacillus Rhamnosus Gg) 1 Each Capsule 1 Each PO BID Vimpat (Lacosamide) 200 Mg Tablet 200 Mg PO BIDAFTMEAL Cymbalta (Duloxetine Hcl) 60 Mg Capsule.dr 60 Mg PO DAILY06 Divalproex Sodium 500 Mg Tablet.dr 500 Mg PO BID Oyster Shell Calcium (Calcium Carbonate) 500 Mg Tablet 1,250 Mg PO BID66 Miralax (Polyethylene Glycol 3350) 17 Gm Powd.pack 17 Gm PO PRN DAILY PRN Milk Of Magnesia (Magnesium Hydroxide) 2,400 Mg/10 Ml Oral.susp 2,400 Mg PO PRN QHS PRN Atorvastatin Calcium 10 Mg Tablet 5 Mg PO QHS Seroquel (Quetiapine Fumarate) 25 Mg Tablet 25 Mg PO [id number] Pantoprazole Sodium 40 Mg Tablet.dr 40 Mg PO BIDBFRMEAL Vitamin D3 (Cholecalciferol (Vitamin D3)) 1,000 Unit Tablet 1,000 Unit PO DAILY Levothyroxine Sodium 75 Mcg Tablet 75 Mcg PO DAILY06 Phenobarbital 64.8 Mg Tablet 64.8 Mg PO HS Magnesium Oxide 400 Mg Tablet 400 Mg PO TID Tylenol (Acetaminophen) 325 Mg Tablet 650 Mg PO PRN Q6HRS PRN Tramadol Hcl (Tramadol HCl) 50 Mg Tablet 50 Mg PO PRN Q6HRS PRN Senna-S Tablet (Sennosides/Docusate Sodium) 1 Each Tablet 1 Tab PO PRN BID PRN Keppra (Levetiracetam) 250 Mg Tablet 750 Mg PO BIDAFTMEAL Ferrous Sulfate 325 Mg Tablet 325 Mg PO BIDAFTMEAL Bisacodyl 10 Mg Supp.rect 10 Mg RC PRN DAILY PRN Felbamate 400 Mg Tablet 800 Mg PO TID I have reviewed the current psychotropics carefully including drug interactions. Risk benefit ratio favors no change other than as noted in my dictated progress note. Diagnosis: Problems: (1) Functional diarrhea (2) urinary tract infection (3) Left hip arthroplasty (4) Severe major depression with psychotic features (5) Adjustment disorder with depressed mood (6) Bipolar affective, mixed (7) Impulse control disorder (8) Dementia, vascular, with delusions (9) Dementia, vascular, with depression (10) Uncooperative behavior (11) Behavior disturbance (12) Medical clearance for psychiatric admission HARVEY QUIJANO MD Nov 05, 2017 21:14
--- NOTE | 2017-11-05 21:53 | PN ---
DATE: 11/04/2017 This is a late entry 11/04/2017 covers elements not covered in my initial note. SUBJECTIVE: I met with the patient in the evening. The patient slept 7-3/4 hours previous evening. The patient's sister visited and expressed concern about the patient's sedation. In fact, we have been monitoring this closely. Valproic acid level is therapeutic at 58 and Seroquel has been necessary so far given the fact she has been referred back to us a couple of times from her residential due to aggression needing mood stabilization. REVIEW OF SYSTEMS: Ambulation impaired, in wheelchair. No CV, , pulmonary, eye, ENT system symptoms on review. Reliability fair. MENTAL STATUS EXAM: Oriented to herself and situation. Speech moderate latency, often responses monosyllabic. Abstraction fair, computation impaired, language function intact, attention span short. Mood and affect somewhat withdrawn, not very verbally interactive as I met with her. Eye contact is poor. LABORATORY DATA: Reviewed. IMPRESSION: Bipolar 1 disorder, mixed with psychotic features; cognitive disorder, unspecified. Rest unchanged. PLAN: We will address the family's concerns about over sedation, reduce the Seroquel from 25 mg 4 times a day to 12.5 mg 4 times a day. Continue rest unchanged. If aggression resurfaces, we may have to undo this. HARVEY QUIJANO MD DR: LOYD/eboni JOB#: [id number] / [id number]
[2017-11-06] MEDS: DULoxetine HCL 60 MG CAPSULE.DR PO SCH (05:52)
[2017-11-06] MEDS: LEVOTHYROXINE 75 MCG TABLET PO SCH (05:52)
[2017-11-06] MEDS: CALCIUM CARBONATE 500 MG TABLET PO SCH ×2 (05:53→17:17)
[2017-11-06 05:59] VITALS: BP 130/45
[2017-11-06] MEDS: MAGNESIUM OXIDE 400 MG TABLET PO SCH ×3 (07:43→19:42)
[2017-11-06] MEDS: LACOSAMIDE 50 MG TABLET PO SCH ×2 (07:43→17:18)
[2017-11-06] MEDS: FERROUS SULFATE 325 MG TABLET. PO SCH ×2 (07:43→17:17)
[2017-11-06] MEDS: CHOLECALCIFEROL (VITAMIN D3) 1,000 UNIT TABLET PO SCH (07:43)
[2017-11-06] MEDS: LACTOBACILLUS RHAMNOSUS GG 1 CAPSULE. PO SCH ×2 (07:44→19:42)
[2017-11-06] MEDS: PANTOPRAZOLE 40 MG TABLET. PO SCH ×2 (07:44→17:17)
[2017-11-06] MEDS: levETIRAcetam 250 MG TABLET PO SCH ×2 (07:44→17:18)
[2017-11-06] MEDS: QUEtiapine 25 MG TABLET. PO SCH ×4 (07:45→19:42)
[2017-11-06] MEDS: DIVALPROEX 125 MG CAP.SPRINK PO SCH ×2 (07:45→19:42)
[2017-11-06] MEDS: FELBAMATE 400 MG TABLET PO SCH ×3 (07:48→21:00)
--- NOTE | 2017-11-06 10:42 | NUR ---
Call placed to Kamille at [facility], to coordinate d/c planning for 11/08/17. Faxed recent health care information to Kamille for review. Kamille indicated she would call this worker back with transport time. Awaiting return phone call. Call placed to Kaushik, son/POA, message left to inform that d/c was being arranged for 11/08/17. Requested Kaushik phone this worker back to confirm he received the message.
--- NOTE | 2017-11-06 11:00 | NUR ---
[facility] Social Work Discharge Planning Form Patient Name LUZMA BALDERAS Admit Date: 10/27/2017 DISCHARGE PLAN Discharge Destination: [facility], [facility] Assessment: previously completed Transportation: [facility] to transport, they will call with picking table worker time Special Instructions/Notes: Arrange for follow up with Dr. Newberry and Dr. Lopes within 7-10 days. DISCHARGE TO FACILITY Facility: [facility] Address: [address] [place] [id number] Contact Name: ALANIS Roth Contact Name: PATTI Cheek PCP: Dr. Newberry [phone] Psychiatrist: Dr. Lopes [phone]
--- NOTE | 2017-11-06 11:16 | NUR ---
Behavior Intervention Response and Plan: BIRP Note: Behavior: Assumed Care of patient, patient located in Day Room at shift change. Patient exhibited the following behavior Calm, Withdrawn, compliant . Brief assessment on rounds of vital signs, medication needs, lab studies, and pain. Treatment plan problems 1 and 2. Intervention: Patient assessed and the following interventions initiated safety checks 15 Minute Checks Cognitive Assessment , Head to toe Assessment , Medications. Response: After interactions and interventions patient responded in the following manner, Calm , Compliant ,Withdrawn. Continue to assess behaviors and condition will continue to monitor throughout the shift as needed. Patient educated on ADL's, and hand hygiene. Plan: Continue to monitor Master Treatment Plan for patient's progress toward short term goals of Decreased Agitation, Decreased Aggression, group home goals to return to previous living setting vs placement. Continue to assess patient for changes in above assessment. Monitor for medication needs, pain, and safety concerns. Hourly rounding performed to ensure safe environment.
--- NOTE | 2017-11-06 13:43 | PN ---
DATE: 11/05/2017 This is a late entry 11/05/2017, covers the elements not covered in my initial note. SUBJECTIVE: I met with the patient in the evening. The patient slept 8-1/4 hours previous evening. She is less tired and withdrawn since the Seroquel was reduced. REVIEW OF SYSTEMS: Ambulation impaired, in wheelchair. No CV, , pulmonary, eye system symptoms on review. MENTAL STATUS EXAM: Reasonably oriented. Speech, low in rate and rhythm, low in volume. Seated in wheelchair, bent forward, less tired. Abstraction fair, computation impaired, language function intact. No suicidal or homicidal ideation. LABORATORY DATA: Reviewed. IMPRESSION: Bipolar 1 disorder, mixed versus depressed; anxiety disorder, unspecified; cognitive disorder, unspecified. PLAN: Continue psychotropics from initial note for now. MAN Luis QUIJANO MD DR: LOYD/eboni JOB#: [id number] / [id number]
--- NOTE | 2017-11-06 15:00 | NUR ---
WEEKLY ACTIVITY THERAPY NOTE Date of Admission: 10/27/2017 Date of AT Assessment: 10/29/2017 Goal aimed: to increase engagement and healthy social interaction Initial goal: Pt. will participate in two individual activities fully before discharge. Weekly progress towards goal: exceeded Group participation level: varies Behaviors observed: Pt. is slow to respond and benefits from one on one interactions with therapist; When engaged, Pt. is friendly but quiet and soft spoken; When not engaged, Pt. sleeps through groups; Pt. seems to enjoy crossword puzzles and arts and crafts as well as spending time outside 11/05- move to music min., horseshoes and music/tea social mod., 11/04- Jazz and Bingo min., summer coloring full (crosswords), movie mod.; 11/02- decorating flower pots full; 10/31- music min., one on one crosswords full, Fitness full, tea social full Plan: change goal- Pt. will participate in at least one group or individual activity per day, with staff assistance as need be
[2017-11-06 16:15] VITALS: BP 105/71
[2017-11-06] MEDS: ATORVASTATIN CALCIUM 10 MG TABLET. PO SCH (19:42)
--- NOTE | 2017-11-06 20:57 | PDOC ---
Exam Note: David Note: Please also refer to the separate dictated note~for this date of service dictated separately.~Patient seen individually. Discussed the patient with Nursing staff reviewed the chart.~Reviewed interim history and current functioning. Reviewed vital signs,~Labs/ Radiology~and current medications noted below. Continue current treatment with the changes noted in the dictated addendum note Assessment: Vital Signs: Vital Signs Date Time Temp Pulse Resp B/P (MAP) Pulse Ox O2 Delivery O2 Flow Rate FiO2 11/06/17 16:15 98.7 74 18 105/71 (82) 98 Room Air I&O Intake and Output 11/06/17 07:00 Intake Total 0 ml Balance 0 ml Intake Oral 0 ml Current Medications: Meds: Current Medications Divalproex Sodium (Depakote) 500 mg BID PO ; Start 10/27/17 at 21:00; Stop 10/27 at 21:00; Status DC Duloxetine HCl (Cymbalta) 60 mg DAILY06 PO Last administered on 11/06/17at 05:52 ; Start 10/28/17 at 06:00 Quetiapine Fumarate (SEROquel) 25 mg [id number] PO Last administered on 11/04/17at 16:39; Start 10/27/17 at 21:00; Stop 11/04/17 at 18:26; Status DC Trazodone HCl (Desyrel) 50 mg PRN QHS PRN PO INSOMNIA, MAY REPEAT X1 Last administered on 10/27/17at 20:56; Start 10/27/17 at 20:15 Acetaminophen (Tylenol) 650 mg PRN Q6HRS PRN PO MILD PAIN / TEMP Last administered on 11/04/17at 08:52; Start 10/27/17 at 20:00 Calcium Carbonate/ Glycine (Oscal) 1,250 mg BID66 PO Last administered on 17:17; Start 10/28/17 at 06:00 Vitamin D (Vitamin D3) 1,000 unit DAILY PO Last administered on 11/06/17 07:43 ; Start 10/28/17 at 09:00 Felbamate (Felbatol) 800 mg TID PO Last administered on 11/06/17at 14:45; Start 10/27/17 at 21:00 Ferrous Sulfate (Feosol) 325 mg BIDAFTMEAL PO Last administered on 11/06/17 17 :17; Start 10/28/17 at 09:00 Levothyroxine Sodium (Synthroid) 75 mcg DAILY06 PO Last administered on 05:52; Start 10/28/17 at 06:00 Al Hydroxide/Mg Hydroxide (Mylanta Plus Xs) 15 ml PRN AFTMEALHC PRN PO DYSPEPSIA; Start 10/27/17 at 20:00 Multi-Ingredient Ointment (Analgesic Leivasy) 1 radha PRN QID PRN TP MUSCLE PAIN; Start 10/27/17 at 20:00 Senna/Docusate Sodium (Senna Plus) 1 tab PRN BID PRN PO CONSTIPATION 3RD CHOICE ; Start 10/27/17 at 20:00 Tramadol HCl (Ultram) 50 mg PRN Q6HRS PRN PO MODERATE PAIN Last administered on 10/27/17at 20:57; Start 10/27/17 at 20:00 Atorvastatin Calcium (Lipitor) 5 mg QHS PO Last administered on 11/06/17 19:42 ; Start 10/27/17 at 21:00 Bisacodyl (Dulcolax Supp) 10 mg PRN DAILY PRN TN CONSTIPATION; Start 10/27/17 at 20:15 Lacosamide (Vimpat) 200 mg BIDAFTMEAL PO Last administered on 11/06/17 17:18; Start 10/27/17 at 21:00 Lactobacillus Rhamnosus (Culturelle) 1 cap BID PO Last administered on 19:42; Start 10/27/17 at 21:00 Levetiracetam (Keppra) 750 mg BIDAFTMEAL PO Last administered on 11/06/17 17: 18; Start 10/27/17 at 21:00 Magnesium Hydroxide (Milk Of Magnesia) 2,400 mg PRN Q4HRS PRN PO CONSTIPATION 2ND CHOICE; Start 10/27/17 at 20:15 Magnesium Oxide (Magnesium Oxide) 400 mg TID PO Last administered on 11/06/17 19:42; Start 10/27/17 at 21:00 Pantoprazole Sodium (Protonix) 40 mg BIDBFRMEAL PO Last administered on 17:17; Start 10/28/17 at 07:30 Phenobarbital (Luminal) 64.8 mg QHS PO Last administered on 11/05/17 19:56; Start 10/27/17 at 21:00 Polyethylene Glycol (miraLAX) 17 gm PRN DAILY PRN PO CONSTIPATION 1ST CHOICE; Start 10/28/17 at 09:00 Divalproex Sodium (Depakote Sprinkles) 500 mg BID PO Last administered on at 08:28; Start 10/27/17 at 21:00; Stop 10/28/17 at 18:25; Status DC Divalproex Sodium (Depakote Sprinkles) 500 mg DAILY PO Last administered on 07:45; Start 10/29/17 at 09:00 Divalproex Sodium (Depakote Sprinkles) 750 mg HS PO Last administered on 19:42; Start 10/28/17 at 21:00 Quetiapine Fumarate (SEROquel) 12.5 mg [id number] PO Last administered on 19:42; Start 11/04/17 at 21:00 Active Scripts Active Reported Trazodone Hcl 50 Mg Tablet 50 Mg PO PRN QHS PRN Analgesic Leivasy (Methyl Salicylate/Menthol) 28 Gm Oint...g. 1 Radha TP PRN QID PRN Mag-Al Plus Xs Suspension (Mag Hydrox/Al Hydrox/Simeth) 30 Ml Oral.susp 15 Ml PO PRN AFTMEALHC PRN Culturelle (Lactobacillus Rhamnosus Gg) 1 Each Capsule 1 Each PO BID Vimpat (Lacosamide) 200 Mg Tablet 200 Mg PO BIDAFTMEAL Cymbalta (Duloxetine Hcl) 60 Mg Capsule.dr 60 Mg PO DAILY06 Divalproex Sodium 500 Mg Tablet.dr 500 Mg PO BID Oyster Shell Calcium (Calcium Carbonate) 500 Mg Tablet 1,250 Mg PO BID66 Miralax (Polyethylene Glycol 3350) 17 Gm Powd.pack 17 Gm PO PRN DAILY PRN Milk Of Magnesia (Magnesium Hydroxide) 2,400 Mg/10 Ml Oral.susp 2,400 Mg PO PRN QHS PRN Atorvastatin Calcium 10 Mg Tablet 5 Mg PO QHS Seroquel (Quetiapine Fumarate) 25 Mg Tablet 25 Mg PO [id number] Pantoprazole Sodium 40 Mg Tablet.dr 40 Mg PO BIDBFRMEAL Vitamin D3 (Cholecalciferol (Vitamin D3)) 1,000 Unit Tablet 1,000 Unit PO DAILY Levothyroxine Sodium 75 Mcg Tablet 75 Mcg PO DAILY06 Phenobarbital 64.8 Mg Tablet 64.8 Mg PO HS Magnesium Oxide 400 Mg Tablet 400 Mg PO TID Tylenol (Acetaminophen) 325 Mg Tablet 650 Mg PO PRN Q6HRS PRN Tramadol Hcl (Tramadol HCl) 50 Mg Tablet 50 Mg PO PRN Q6HRS PRN Senna-S Tablet (Sennosides/Docusate Sodium) 1 Each Tablet 1 Tab PO PRN BID PRN Keppra (Levetiracetam) 250 Mg Tablet 750 Mg PO BIDAFTMEAL Ferrous Sulfate 325 Mg Tablet 325 Mg PO BIDAFTMEAL Bisacodyl 10 Mg Supp.rect 10 Mg RC PRN DAILY PRN Felbamate 400 Mg Tablet 800 Mg PO TID I have reviewed the current psychotropics carefully including drug interactions. Risk benefit ratio favors no change other than as noted in my dictated progress note. Diagnosis: Problems: (1) Functional diarrhea (2) urinary tract infection (3) Left hip arthroplasty (4) Severe major depression with psychotic features (5) Adjustment disorder with depressed mood (6) Bipolar affective, mixed (7) Impulse control disorder (8) Dementia, vascular, with delusions (9) Dementia, vascular, with depression (10) Uncooperative behavior (11) Behavior disturbance (12) Medical clearance for psychiatric admission HARVEY QUIJANO MD Nov 06, 2017 20:57
[2017-11-06] MEDS: PHENobarbital 32.4 MG TABLET. PO SCH (21:00)
--- NOTE | 2017-11-07 01:20 | NUR ---
Behavior Intervention Response and Plan: BIRP Note: Behavior: Assumed Care of patient, patient located in Hallway at shift change. Patient exhibited the following behavior Wandering, Disorganized, Attention Seeking. Brief assessment on rounds of vital signs, medication needs, lab studies, and pain. Treatment plan problems . Intervention: Patient assessed and the following interventions initiated safety checks 15 Minute Checks Cognitive Assessment , Head to toe Assessment , Medications. Response: After interactions and interventions patient responded in the following manner, Drowsy , Interactive ,Interactive. Continue to assess behaviors and condition will continue to monitor throughout the shift as needed. Patient educated on ADL's, and hand hygiene. Plan: Continue to monitor Master Treatment Plan for patient's progress toward short term goals of Decreased Agitation, Decreased Anxiety, manager terminal goals to return to previous living setting vs placement. Continue to assess patient for changes in above assessment. Monitor for medication needs, pain, and safety concerns. Hourly rounding performed to ensure safe environment.
[2017-11-07] MEDS: DULoxetine HCL 60 MG CAPSULE.DR PO SCH (05:38)
[2017-11-07] MEDS: LEVOTHYROXINE 75 MCG TABLET PO SCH (05:38)
[2017-11-07] MEDS: CALCIUM CARBONATE 500 MG TABLET PO SCH ×2 (05:38→16:59)
[2017-11-07 06:00] VITALS: BP 104/66
[2017-11-07] MEDS: FERROUS SULFATE 325 MG TABLET. PO SCH ×2 (09:42→16:59)
[2017-11-07] MEDS: LACTOBACILLUS RHAMNOSUS GG 1 CAPSULE. PO SCH ×2 (09:42→20:23)
[2017-11-07] MEDS: levETIRAcetam 250 MG TABLET PO SCH ×2 (09:42→17:00)
[2017-11-07] MEDS: PANTOPRAZOLE 40 MG TABLET. PO SCH ×2 (09:43→16:59)
[2017-11-07] MEDS: QUEtiapine 25 MG TABLET. PO SCH ×4 (09:43→20:25)
[2017-11-07] MEDS: CHOLECALCIFEROL (VITAMIN D3) 1,000 UNIT TABLET PO SCH (09:43)
[2017-11-07] MEDS: LACOSAMIDE 50 MG TABLET PO SCH ×2 (09:43→17:00)
[2017-11-07] MEDS: MAGNESIUM OXIDE 400 MG TABLET PO SCH ×3 (09:43→17:00)
[2017-11-07] MEDS: DIVALPROEX 125 MG CAP.SPRINK PO SCH ×2 (09:45→20:24)
[2017-11-07] MEDS: FELBAMATE 400 MG TABLET PO SCH ×3 (10:04→20:27)
--- NOTE | 2017-11-07 10:54 | NUR ---
Behavior Intervention Response and Plan: BIRP Note: Behavior: Assumed Care of patient, patient located in Day Room at shift change. Patient exhibited the following behavior Calm, Withdrawn, compliant . Brief assessment on rounds of vital signs, medication needs, lab studies, and pain. Treatment plan problems 1 and 2. Intervention: Patient assessed and the following interventions initiated safety checks 15 Minute Checks Cognitive Assessment , Head to toe Assessment , Medications. Response: After interactions and interventions patient responded in the following manner, Calm , Compliant ,Withdrawn. Continue to assess behaviors and condition will continue to monitor throughout the shift as needed. Patient educated on ADL's, and hand hygiene. Plan: Continue to monitor Master Treatment Plan for patient's progress toward short term goals of Decreased Agitation, Decreased Aggression, correction goals to return to previous living setting vs placement. Continue to assess patient for changes in above assessment. Monitor for medication needs, pain, and safety concerns. Hourly rounding performed to ensure safe environment.
--- NOTE | 2017-11-07 11:12 | NUR ---
Per Kaushik's (son/POA) request, faxed referral to Kimberlee at [facility] for review for possible placement for residential care. Kimberlee indicated she would let this worker know admit decision. Awaiting outcome.
[2017-11-07 15:58] VITALS: BP 102/69
--- NOTE | 2017-11-07 16:15 | NUR ---
Received message from Kamille, music education director, at [facility] indicating that [employer] transport will pick Marycruz up on 11/08/17 at 10am for return back to [facility].
[2017-11-07] MEDS: ATORVASTATIN CALCIUM 10 MG TABLET. PO SCH (20:24)
[2017-11-07] MEDS: PHENobarbital 32.4 MG TABLET. PO SCH (20:27)
--- NOTE | 2017-11-07 20:39 | PDOC ---
Exam Note: David Note: Please also refer to the separate dictated note~for this date of service dictated separately.~Patient seen individually. Discussed the patient with Nursing staff reviewed the chart.~Reviewed interim history and current functioning. Reviewed vital signs,~Labs/ Radiology~and current medications noted below. Continue current treatment with the changes noted in the dictated addendum note Assessment: Vital Signs: Vital Signs Date Time Temp Pulse Resp B/P (MAP) Pulse Ox O2 Delivery O2 Flow Rate FiO2 11/07/17 15:58 97.2 66 16 102/69 (80) 97 11/06/17 16:15 Room Air I&O Intake and Output 11/07/17 06:59 Intake Total 480 ml Balance 480 ml Intake Oral 480 ml Current Medications: Meds: Current Medications Divalproex Sodium (Depakote) 500 mg BID PO ; Start 10/27/17 at 21:00; Stop 10/27 at 21:00; Status DC Duloxetine HCl (Cymbalta) 60 mg DAILY06 PO Last administered on 11/07/17at 05:38 ; Start 10/28/17 at 06:00 Quetiapine Fumarate (SEROquel) 25 mg [id number] PO Last administered on 11/04/17at 16:39; Start 10/27/17 at 21:00; Stop 11/04/17 at 18:26; Status DC Trazodone HCl (Desyrel) 50 mg PRN QHS PRN PO INSOMNIA, MAY REPEAT X1 Last administered on 10/27/17at 20:56; Start 10/27/17 at 20:15 Acetaminophen (Tylenol) 650 mg PRN Q6HRS PRN PO MILD PAIN / TEMP Last administered on 11/04/17at 08:52; Start 10/27/17 at 20:00 Calcium Carbonate/ Glycine (Oscal) 1,250 mg BID66 PO Last administered on at 16:59; Start 10/28/17 at 06:00 Vitamin D (Vitamin D3) 1,000 unit DAILY PO Last administered on 11/07/17at 09:43 ; Start 10/28/17 at 09:00 Felbamate (Felbatol) 800 mg TID PO Last administered on 11/07/17at 20:27; Start 10/27/17 at 21:00 Ferrous Sulfate (Feosol) 325 mg BIDAFTMEAL PO Last administered on 11/07/17 16 :59; Start 10/28/17 at 09:00 Levothyroxine Sodium (Synthroid) 75 mcg DAILY06 PO Last administered on 05:38; Start 10/28/17 at 06:00 Al Hydroxide/Mg Hydroxide (Mylanta Plus Xs) 15 ml PRN AFTMEALHC PRN PO DYSPEPSIA; Start 10/27/17 at 20:00 Multi-Ingredient Ointment (Analgesic [place]) 1 radha PRN QID PRN TP MUSCLE PAIN; Start 10/27/17 at 20:00 Senna/Docusate Sodium (Senna Plus) 1 tab PRN BID PRN PO CONSTIPATION 3RD CHOICE ; Start 10/27/17 at 20:00 Tramadol HCl (Ultram) 50 mg PRN Q6HRS PRN PO MODERATE PAIN Last administered on 10/27/17 20:57; Start 10/27/17 at 20:00 Atorvastatin Calcium (Lipitor) 5 mg QHS PO Last administered on 11/07/17at 20:24 ; Start 10/27/17 at 21:00 Bisacodyl (Dulcolax Supp) 10 mg PRN DAILY PRN DE CONSTIPATION; Start 10/27/17 at 20:15 Lacosamide (Vimpat) 200 mg BIDAFTMEAL PO Last administered on 11/07/17 17:00; Start 10/27/17 at 21:00 Lactobacillus Rhamnosus (Culturelle) 1 cap BID PO Last administered on 20:23; Start 10/27/17 at 21:00 Levetiracetam (Keppra) 750 mg BIDAFTMEAL PO Last administered on 11/07/17 17: 00; Start 10/27/17 at 21:00 Magnesium Hydroxide (Milk Of Magnesia) 2,400 mg PRN Q4HRS PRN PO CONSTIPATION 2ND CHOICE; Start 10/27/17 at 20:15 Magnesium Oxide (Magnesium Oxide) 400 mg TID PO Last administered on 11/07/17 17:00; Start 10/27/17 at 21:00 Pantoprazole Sodium (Protonix) 40 mg BIDBFRMEAL PO Last administered on at 16:59; Start 10/28/17 at 07:30 Phenobarbital (Luminal) 64.8 mg QHS PO Last administered on 11/07/17at 20:27; Start 10/27/17 at 21:00 Polyethylene Glycol (miraLAX) 17 gm PRN DAILY PRN PO CONSTIPATION 1ST CHOICE; Start 10/28/17 at 09:00 Divalproex Sodium (Depakote Sprinkles) 500 mg BID PO Last administered on at 08:28; Start 10/27/17 at 21:00; Stop 10/28/17 at 18:25; Status DC Divalproex Sodium (Depakote Sprinkles) 500 mg DAILY PO Last administered on at 09:45; Start 10/29/17 at 09:00 Divalproex Sodium (Depakote Sprinkles) 750 mg HS PO Last administered on at 20:24; Start 10/28/17 at 21:00 Quetiapine Fumarate (SEROquel) 12.5 mg [id number] PO Last administered on at 20:25; Start 11/04/17 at 21:00 Active Scripts Active Reported Trazodone Hcl 50 Mg Tablet 50 Mg PO PRN QHS PRN Analgesic [place] (Methyl Salicylate/Menthol) 28 Gm Oint...g. 1 Radha TP PRN QID PRN Mag-Al Plus Xs Suspension (Mag Hydrox/Al Hydrox/Simeth) 30 Ml Oral.susp 15 Ml PO PRN AFTMEALHC PRN Culturelle (Lactobacillus Rhamnosus Gg) 1 Each Capsule 1 Each PO BID Vimpat (Lacosamide) 200 Mg Tablet 200 Mg PO BIDAFTMEAL Cymbalta (Duloxetine Hcl) 60 Mg Capsule.dr 60 Mg PO DAILY06 Divalproex Sodium 500 Mg Tablet.dr 500 Mg PO BID Oyster Shell Calcium (Calcium Carbonate) 500 Mg Tablet 1,250 Mg PO BID66 Miralax (Polyethylene Glycol 3350) 17 Gm Powd.pack 17 Gm PO PRN DAILY PRN Milk Of Magnesia (Magnesium Hydroxide) 2,400 Mg/10 Ml Oral.susp 2,400 Mg PO PRN QHS PRN Atorvastatin Calcium 10 Mg Tablet 5 Mg PO QHS Seroquel (Quetiapine Fumarate) 25 Mg Tablet 25 Mg PO [id number] Pantoprazole Sodium 40 Mg Tablet.dr 40 Mg PO BIDBFRMEAL Vitamin D3 (Cholecalciferol (Vitamin D3)) 1,000 Unit Tablet 1,000 Unit PO DAILY Levothyroxine Sodium 75 Mcg Tablet 75 Mcg PO DAILY06 Phenobarbital 64.8 Mg Tablet 64.8 Mg PO HS Magnesium Oxide 400 Mg Tablet 400 Mg PO TID Tylenol (Acetaminophen) 325 Mg Tablet 650 Mg PO PRN Q6HRS PRN Tramadol Hcl (Tramadol HCl) 50 Mg Tablet 50 Mg PO PRN Q6HRS PRN Senna-S Tablet (Sennosides/Docusate Sodium) 1 Each Tablet 1 Tab PO PRN BID PRN Keppra (Levetiracetam) 250 Mg Tablet 750 Mg PO BIDAFTMEAL Ferrous Sulfate 325 Mg Tablet 325 Mg PO BIDAFTMEAL Bisacodyl 10 Mg Supp.rect 10 Mg RC PRN DAILY PRN Felbamate 400 Mg Tablet 800 Mg PO TID I have reviewed the current psychotropics carefully including drug interactions. Risk benefit ratio favors no change other than as noted in my dictated progress note. Diagnosis: Problems: (1) Functional diarrhea (2) urinary tract infection (3) Left hip arthroplasty (4) Severe major depression with psychotic features (5) Adjustment disorder with depressed mood (6) Bipolar affective, mixed (7) Impulse control disorder (8) Dementia, vascular, with delusions (9) Dementia, vascular, with depression (10) Uncooperative behavior (11) Behavior disturbance (12) Medical clearance for psychiatric admission HARVEY QUIJANO MD Nov 07, 2017 20:39
--- NOTE | 2017-11-07 22:02 | NUR ---
Nursing note: Assumed care of patient in day room. She was pleasant, cooperative, and compliant w/assessment & meds, whole, floated in applesauce. Pt was smiling and interactive.
[2017-11-07] MEDS ORDERED: DIVA125C PO (23:21)
[2017-11-08] MEDS: DULoxetine HCL 60 MG CAPSULE.DR PO SCH (05:35)
[2017-11-08] MEDS: CALCIUM CARBONATE 500 MG TABLET PO SCH (05:35)
[2017-11-08] MEDS: LEVOTHYROXINE 75 MCG TABLET PO SCH (05:35)
[2017-11-08 05:38] VITALS: BP 104/62
[2017-11-08] MEDS: FERROUS SULFATE 325 MG TABLET. PO SCH (08:08)
[2017-11-08] MEDS: DIVALPROEX 125 MG CAP.SPRINK PO SCH (08:09)
[2017-11-08] MEDS: levETIRAcetam 250 MG TABLET PO SCH (08:09)
[2017-11-08] MEDS: LACOSAMIDE 50 MG TABLET PO SCH (08:09)
[2017-11-08] MEDS: CHOLECALCIFEROL (VITAMIN D3) 1,000 UNIT TABLET PO SCH (08:09)
[2017-11-08] MEDS: PANTOPRAZOLE 40 MG TABLET. PO SCH (08:10)
[2017-11-08] MEDS: QUEtiapine 25 MG TABLET. PO SCH (08:10)
[2017-11-08] MEDS: LACTOBACILLUS RHAMNOSUS GG 1 CAPSULE. PO SCH (08:10)
[2017-11-08] MEDS: MAGNESIUM OXIDE 400 MG TABLET PO SCH (08:10)
[2017-11-08] MEDS: FELBAMATE 400 MG TABLET PO SCH (08:11)
--- NOTE | 2017-11-08 08:50 | NUR ---
Behavior Intervention Response and Plan: BIRP Note: Behavior: Assumed Care of patient, patient located in Patient Room at shift change. Patient exhibited the following behavior Interactive, Compulsive, Withdrawn. Brief assessment on rounds of vital signs, medication needs, lab studies, and pain. Treatment plan problems 1 & 2. Intervention: Patient assessed and the following interventions initiated safety checks 15 Minute Checks Cognitive Assessment , Head to toe Assessment , Medications. Response: After interactions and interventions patient responded in the following manner, Calm , Appropriate ,Compliant. Continue to assess behaviors and condition will continue to monitor throughout the shift as needed. Patient educated on ADL's, and hand hygiene. Plan: Continue to monitor Master Treatment Plan for patient's progress toward short term goals of Decreased Agitation, No harm To self/ others, terminal supervisor goals to return to previous living setting vs placement. Continue to assess patient for changes in above assessment. Monitor for medication needs, pain, and safety concerns. Hourly rounding performed to ensure safe environment.
--- NOTE | 2017-11-08 10:15 | NUR ---
Transition Record was faxed to follow-up provider with the following elements: Reason for admission, procedures, tests, principal diagnosis, pending studies, patient instructions, 05/11 contact information for unit, phone number to obtain pending test results, plan for follow-up care, physician follow-up, advanced directive information, and medication list with dose, duration and instructions. This information was included in the following documents: History and physical, lab results, study results, progress notes, social work planning form, DC instruction form, patient visit summary, and medication reconciliation form. Date & time record faxed: 10:00 08 November 2017 Record faxed to: [facility] Record discussed with/ report given to: LION Hoover at [facility]
--- NOTE | 2017-11-08 20:30 | PDOC ---
Exam Note: David Note: Please also refer to the separate dictated note~for this date of service dictated separately.~Patient seen individually. Discussed the patient with Nursing staff reviewed the chart.~Reviewed interim history and current functioning. Reviewed vital signs,~Labs/ Radiology~and current medications noted below. Continue current treatment with the changes noted in the dictated addendum note Assessment: Vital Signs: Vital Signs Date Time Temp Pulse Resp B/P (MAP) Pulse Ox O2 Delivery O2 Flow Rate FiO2 11/08/17 05:38 96.9 63 17 104/62 (76) 94 11/06/17 16:15 Room Air I&O Intake and Output 11/08/17 06:59 Intake Total 540 ml Balance 540 ml Intake Oral 540 ml Current Medications: Meds: Current Medications Divalproex Sodium (Depakote) 500 mg BID PO ; Start 10/27/17 at 21:00; Stop 10/27 at 21:00; Status DC Duloxetine HCl (Cymbalta) 60 mg DAILY06 PO Last administered on 11/08/17at 05:35 ; Start 10/28/17 at 06:00; Stop 11/08/17 at 11:21; Status DC Quetiapine Fumarate (SEROquel) 25 mg [id number] PO Last administered on 11/04/17at 16:39; Start 10/27/17 at 21:00; Stop 11/04/17 at 18:26; Status DC Trazodone HCl (Desyrel) 50 mg PRN QHS PRN PO INSOMNIA, MAY REPEAT X1 Last administered on 10/27/17at 20:56; Start 10/27/17 at 20:15; Stop 11/08/17 at 11:21 ; Status DC Acetaminophen (Tylenol) 650 mg PRN Q6HRS PRN PO MILD PAIN / TEMP Last administered on 11/04/17at 08:52; Start 10/27/17 at 20:00; Stop 11/08/17 at 11:21 ; Status DC Calcium Carbonate/ Glycine (Oscal) 1,250 mg BID66 PO Last administered on at 05:35; Start 10/28/17 at 06:00; Stop 11/08/17 at 11:21; Status DC Vitamin D (Vitamin D3) 1,000 unit DAILY PO Last administered on 11/08/17at 08:09 ; Start 10/28/17 at 09:00; Stop 11/08/17 at 11:21; Status DC Felbamate (Felbatol) 800 mg TID PO Last administered on 11/08/17at 08:11; Start 10/27/17 at 21:00; Stop 11/08/17 at 11:21; Status DC Ferrous Sulfate (Feosol) 325 mg BIDAFTMEAL PO Last administered on 11/08/17at 08 :08; Start 10/28/17 at 09:00; Stop 11/08/17 at 11:21; Status DC Levothyroxine Sodium (Synthroid) 75 mcg DAILY06 PO Last administered on at 05:35; Start 10/28/17 at 06:00; Stop 11/08/17 at 11:21; Status DC Al Hydroxide/Mg Hydroxide (Mylanta Plus Xs) 15 ml PRN AFTMEALHC PRN PO DYSPEPSIA; Start 10/27/17 at 20:00; Stop 11/08/17 at 11:21; Status DC Multi-Ingredient Ointment (Analgesic [place]) 1 radha PRN QID PRN TP MUSCLE PAIN; Start 10/27/17 at 20:00; Stop 11/08/17 at 11:21; Status DC Senna/Docusate Sodium (Senna Plus) 1 tab PRN BID PRN PO CONSTIPATION 3RD CHOICE ; Start 10/27/17 at 20:00; Stop 11/08/17 at 11:21; Status DC Tramadol HCl (Ultram) 50 mg PRN Q6HRS PRN PO MODERATE PAIN Last administered on 10/27/17at 20:57; Start 10/27/17 at 20:00; Stop 11/08/17 at 11:21; Status DC Atorvastatin Calcium (Lipitor) 5 mg QHS PO Last administered on 11/07/17at 20:24 ; Start 10/27/17 at 21:00; Stop 11/08/17 at 11:21; Status DC Bisacodyl (Dulcolax Supp) 10 mg PRN DAILY PRN SC CONSTIPATION; Start 10/27/17 at 20:15; Stop 11/08/17 at 11:21; Status DC Lacosamide (Vimpat) 200 mg BIDAFTMEAL PO Last administered on 11/08/17at 08:09; Start 10/27/17 at 21:00; Stop 11/08/17 at 11:21; Status DC Lactobacillus Rhamnosus (Culturelle) 1 cap BID PO Last administered on at 08:10; Start 10/27/17 at 21:00; Stop 11/08/17 at 11:21; Status DC Levetiracetam (Keppra) 750 mg BIDAFTMEAL PO Last administered on 11/08/17at 08: 09; Start 10/27/17 at 21:00; Stop 11/08/17 at 11:21; Status DC Magnesium Hydroxide (Milk Of Magnesia) 2,400 mg PRN Q4HRS PRN PO CONSTIPATION 2ND CHOICE; Start 10/27/17 at 20:15; Stop 11/08/17 at 11:21; Status DC Magnesium Oxide (Magnesium Oxide) 400 mg TID PO Last administered on 11/08/17at 08:10; Start 10/27/17 at 21:00; Stop 11/08/17 at 11:21; Status DC Pantoprazole Sodium (Protonix) 40 mg BIDBFRMEAL PO Last administered on at 08:10; Start 10/28/17 at 07:30; Stop 11/08/17 at 11:21; Status DC Phenobarbital (Luminal) 64.8 mg QHS PO Last administered on 11/07/17at 20:27; Start 10/27/17 at 21:00; Stop 11/08/17 at 11:21; Status DC Polyethylene Glycol (miraLAX) 17 gm PRN DAILY PRN PO CONSTIPATION 1ST CHOICE; Start 10/28/17 at 09:00; Stop 11/08/17 at 11:21; Status DC Divalproex Sodium (Depakote Sprinkles) 500 mg BID PO Last administered on at 08:28; Start 10/27/17 at 21:00; Stop 10/28/17 at 18:25; Status DC Divalproex Sodium (Depakote Sprinkles) 500 mg DAILY PO Last administered on at 08:09; Start 10/29/17 at 09:00; Stop 11/08/17 at 11:21; Status DC Divalproex Sodium (Depakote Sprinkles) 750 mg HS PO Last administered on at 20:24; Start 10/28/17 at 21:00; Stop 11/08/17 at 11:21; Status DC Quetiapine Fumarate (SEROquel) 12.5 mg [id number] PO Last administered on at 08:10; Start 11/04/17 at 21:00; Stop 11/08/17 at 11:21; Status DC Active Scripts Active Reported Depakote Sprinkle (Divalproex Sodium) 125 Mg Cap.sprink 750 Mg PO QHS Trazodone Hcl 50 Mg Tablet 50 Mg PO PRN QHS PRN Analgesic [place] (Methyl Salicylate/Menthol) 28 Gm Oint...g. 1 Radha TP PRN QID PRN Mag-Al Plus Xs Suspension (Mag Hydrox/Al Hydrox/Simeth) 30 Ml Oral.susp 15 Ml PO PRN AFTMEALHC PRN Culturelle (Lactobacillus Rhamnosus Gg) 1 Each Capsule 1 Each PO BID Vimpat (Lacosamide) 200 Mg Tablet 200 Mg PO BIDAFTMEAL Cymbalta (Duloxetine Hcl) 60 Mg Capsule.dr 60 Mg PO DAILY06 Divalproex Sodium 500 Mg Tablet.dr 500 Mg PO DAILY Oyster Shell Calcium (Calcium Carbonate) 500 Mg Tablet 1,250 Mg PO BID66 Miralax (Polyethylene Glycol 3350) 17 Gm Powd.pack 17 Gm PO PRN DAILY PRN Milk Of Magnesia (Magnesium Hydroxide) 2,400 Mg/10 Ml Oral.susp 2,400 Mg PO PRN QHS PRN Atorvastatin Calcium 10 Mg Tablet 5 Mg PO QHS Seroquel (Quetiapine Fumarate) 25 Mg Tablet 12.5 Mg PO [id number] Pantoprazole Sodium 40 Mg Tablet.dr 40 Mg PO BIDBFRMEAL Vitamin D3 (Cholecalciferol (Vitamin D3)) 1,000 Unit Tablet 1,000 Unit PO DAILY Levothyroxine Sodium 75 Mcg Tablet 75 Mcg PO DAILY06 Phenobarbital 64.8 Mg Tablet 64.8 Mg PO HS Magnesium Oxide 400 Mg Tablet 400 Mg PO TID Tylenol (Acetaminophen) 325 Mg Tablet 650 Mg PO PRN Q6HRS PRN Tramadol Hcl (Tramadol HCl) 50 Mg Tablet 50 Mg PO PRN Q6HRS PRN Senna-S Tablet (Sennosides/Docusate Sodium) 1 Each Tablet 1 Tab PO PRN BID PRN Keppra (Levetiracetam) 250 Mg Tablet 750 Mg PO BIDAFTMEAL Ferrous Sulfate 325 Mg Tablet 325 Mg PO BIDAFTMEAL Bisacodyl 10 Mg Supp.rect 10 Mg RC PRN DAILY PRN Felbamate 400 Mg Tablet 800 Mg PO TID I have reviewed the current psychotropics carefully including drug interactions. Risk benefit ratio favors no change other than as noted in my dictated progress note. Diagnosis: Problems: (1) Functional diarrhea (2) urinary tract infection (3) Left hip arthroplasty (4) Severe major depression with psychotic features (5) Adjustment disorder with depressed mood (6) Bipolar affective, mixed (7) Impulse control disorder (8) Dementia, vascular, with delusions (9) Dementia, vascular, with depression HARVEY QUIJANO MD Nov 08, 2017 20:30
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
--- NOTE | 2017-11-09 11:28 | PN ---
DATE: 11/07/2017 This is a late entry for 11/07/2017 and covers elements not covered in my initial note. SUBJECTIVE: I met with the patient in the evening and staffed at a treatment team meeting with the entire team in the morning. The patient remains somewhat withdrawn, but not aggressive. She does redirect. Appetite is fair, slept 7 hours previous evening. REVIEW OF SYSTEMS: Ambulation impaired, in wheelchair. No CV, , pulmonary, eye, ENT system symptoms on review. MENTAL STATUS EXAM: Oriented to herself and situation. Speech moderate latency, often responses monosyllabic. Abstraction fair, computation impaired, language function intact. Mood and affect somewhat withdrawn, but less sedated. LABORATORY DATA: Reviewed. IMPRESSION: Unchanged from initial note. PLAN: Continue current psychotropics with possible transition to jail on 11/08/2017. MAN Luis QUIJANO MD DR: LOYD/eboni JOB#: [id number] / [id number]
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
== END 2017-11-08 10:15 | DRG 885 ==
LOC: ER 15:07 → GEROPSY 17:16
PROVIDERS: ADMIT Psychiatry & Neurology Psychiatry; ATTEND Psychiatry & Neurology Psychiatry
DX: F31.64 Bipolar disorder, current episode mixed, severe, with psychotic features (principal); E44.0 Moderate protein-calorie malnutrition; N39.0 Urinary tract infection, site not specified; F01.51 Vascular dementia, unspecified severity, with behavioral disturbance; F02.81 Dementia in other diseases classified elsewhere, unspecified severity, with behavioral disturbance; G30.9 Alzheimer's disease, unspecified; Z68.22 Body mass index [BMI] 22.0-22.9, adult; D63.1 Anemia in chronic kidney disease; E03.9 Hypothyroidism, unspecified; E78.5 Hyperlipidemia, unspecified; F41.9 Anxiety disorder, unspecified; F43.21 Adjustment disorder with depressed mood; D64.9 Anemia, unspecified; M19.90 Unspecified osteoarthritis, unspecified site; F63.9 Impulse disorder, unspecified; G40.909 Epilepsy, unspecified, not intractable, without status epilepticus; K21.9 Gastro-esophageal reflux disease without esophagitis; G47.00 Insomnia, unspecified; K59.1 Functional diarrhea; Z96.653 Presence of artificial knee joint, bilateral; Z96.642 Presence of left artificial hip joint; N18.9 Chronic kidney disease, unspecified; Z87.440 Personal history of urinary (tract) infections; Z91.14 Patient's other noncompliance with medication regimen
CPT/HCPCS: 36415; 51702; 73130; 80048; 80053; 80164; 81001; 83036; 83735; 85025; 87086; 93005; 97110; 97530; 99285-25

== ENCOUNTER 2017-12-19 17:52 | Inpatient (IN) | payer MEDICARE, OTHER ==
--- NOTE | 2017-12-18 09:15 | NUR ---
PSYCHOSOCIAL UPDATE: PATTI received a call from pt son Kaushik, who wanted to get an update on pt. PATTI explained to Kaushik that his mother did not come up to the unit as planned. Pt had a seizure and the physician wanted her under observation prior to admission to [facility]. Pt son reports that he would like for pt to not return to [facility] at the time of discharge and prefers for pt to go to [facility] in [facility]; pt has been there before and pt son felt that it was a better fit for the pt. Pt reports that she is one of 4 sisters; all have passed but one sister Frannie. Pt parents are both ; her from Systemic Amyloidosis. Pt son reports that his Mom was a stay at home mother and did not work due to having seizures. He reports that it was a daily occurrence for pt to have a seizure and he would be at home to witness more than half of them. Pt has had a few procedures; including a hematoma due to a fall. She stayed at [facility] for one month before being discharged due to complications. Pt son questions if some of her behavior is from her TBI or if it is the Dementia. Kaushik reports that his mother is fairly talkative, can be stubborn and has a sharp sense of humor. Pt used to do word searches, cheryl and knitting and loves watching sports. However, pt has stopped watching tv; she gets irritated by it and Kaushik supposed that this is due to pt no longer being able to follow things. "She used to follow the [employer] teams and keep track of statistics. It made her happy". Pt met her in [place], [place] and they moved to [facility] and then lived the rest of the time in [place], [place]. Kaushik reports that a couple of her other sisters also suffered from seizures. Pt son will plan to be here in a few weeks and will attempt to move his mother at that time if possible. PATTI will contact Kaushik for team conference on .
[~2017-12-19] VITALS: Ht 162.6 cm; Wt 62.8 kg
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
[~2017-12-19 17:52] MED LIST changes: +CEFT1VIA13 IM/IV; +DIVA125C2 PO; +LEVO50TA5 PO
[2017-12-19 18:03] VITALS: BP 92/60
[2017-12-19] MEDS ORDERED: METHYL SALICYLATE/MENTHOL TOPICAL OINTMENT 29GM TUBE. TP PRN ×2 (18:15)
[2017-12-19] MEDS ORDERED: NON FORMULARY ITEM (Magnesium Hydroxide (Milk Of Magnesia) 2,400 MG) PO PRN (18:15)
[2017-12-19] MEDS ORDERED: SENNOSIDES/DOCUSATE 8.6/50MG TABLET. PO PRN (18:15)
[2017-12-19] MEDS ORDERED: ACETAMINOPHEN 325 MG TABLET PO PRN ×2 (18:15)
[2017-12-19] MEDS ORDERED: MAG HYDROX/AL HYDROX/SIMETH 30 ML ORAL.SUSP PO PRN ×2 (18:15)
[2017-12-19] MEDS ORDERED: BISACODYL 10 MG SUPP.RECT PR PRN (18:45)
[2017-12-19 18:59] LABS: VAL ACID 22 mcg/mL (50-100)
[2017-12-19] MEDS ORDERED: traZODone 50 MG TABLET. PO PRN (19:00)
[2017-12-19] MEDS ORDERED: 0.9 % SODIUM CHLORIDE 10 ML DISP.SYRIN. IV PRN (19:45)
[2017-12-19] MEDS: LACTOBACILLUS RHAMNOSUS GG 1 CAPSULE. PO SCH (20:18)
[2017-12-19] MEDS: DIVALPROEX 125 MG CAP.SPRINK PO SCH (20:18)
[2017-12-19] MEDS: PHENobarbital 32.4 MG TABLET. PO SCH (20:18)
[2017-12-19] MEDS: ATORVASTATIN CALCIUM 10 MG TABLET. PO SCH (20:20)
[2017-12-19] MEDS: MAGNESIUM OXIDE 400 MG TABLET PO SCH (20:21)
[2017-12-19] MEDS: QUEtiapine 25 MG TABLET. PO SCH (20:21)
[2017-12-19] MEDS: LACOSAMIDE 50 MG TABLET PO SCH (20:23)
--- NOTE | 2017-12-19 20:58 | PDOC ---
Exam Note: David Note: Please also refer to the separate dictated note~for this date of service dictated separately.~Patient seen individually. Discussed the patient with Nursing staff reviewed the chart.~Reviewed interim history and current functioning. Reviewed vital signs,~Labs/ Radiology~and current medications noted below. Continue current treatment with the changes noted in the dictated addendum note Assessment: Vital Signs: Vital Signs Date Time Temp Pulse Resp B/P (MAP) Pulse Ox O2 Delivery O2 Flow Rate FiO2 12/19/17 18:03 97.8 76 18 92/60 (71) 97 Labs: Laboratory Tests Test 12/19/17 18:30 Magnesium Level 2.1 mg/dL (1.8-2.4) Valproic Acid Level 22 mcg/mL (50-100) L Valproic Acid Last Dose Date 12/19/17 Valproic Acid Last Dose Time 0900 Current Medications: Meds: Current Medications Acetaminophen (Tylenol) 650 mg PRN Q6HRS PRN PO PAIN / TEMP; Start 12/19/17 at 18:15 Multi-Ingredient Ointment (Analgesic [place]) 1 radha PRN QID PRN TP MUSCLE PAIN; Start 12/19/17 at 18:15 Al Hydroxide/Mg Hydroxide (Mylanta Plus Xs) 15 ml PRN AFTMEALHC PRN PO DYSPEPSIA; Start 12/19/17 at 18:15 Magnesium Hydroxide (Milk Of Magnesia) 2,400 mg PRN QHS PRN PO CONSTIPATION; Start 12/19/17 at 18:15 Acetaminophen (Tylenol) 650 mg PRN Q6HRS PRN PO PAIN / TEMP; Start 12/19/17 at 18:15; Status UNV Calcium Carbonate/ Glycine (Oscal) 500 mg BIDWMEALS PO ; Start 12/20/17 at 08:00 Ceftriaxone Sodium (Rocephin) 1 gm DAILY16 IV ; Start 12/20/17 at 16:00; Status UNV Vitamin D (Vitamin D3) 1,000 unit DAILY PO ; Start 12/20/17 at 09:00 Felbamate (Felbatol) 800 mg TID PO ; Start 12/19/17 at 21:00 Ferrous Sulfate (Feosol) 325 mg BIDAFTMEAL PO ; Start 12/20/17 at 09:00 Al Hydroxide/Mg Hydroxide (Mylanta Plus Xs) 15 ml PRN AFTMEALHC PRN PO DYSPEPSIA; Start 12/19/17 at 18:15; Status UNV Multi-Ingredient Ointment (Analgesic [place]) 1 radha PRN QID PRN TP MUSCLE PAIN; Start 12/19/17 at 18:15; Status UNV Senna/Docusate Sodium (Senna Plus) 1 tab PRN BID PRN PO CONSTIPATION; Start 12/19/17 at 18:15 Tramadol HCl (Ultram) 50 mg PRN Q6HRS PRN PO PAIN; Start 12/19/17 at 18:15 Atorvastatin Calcium (Lipitor) 5 mg QHS PO Last administered on 12/19/17at 20:20 ; Start 12/19/17 at 21:00 Bisacodyl (Dulcolax Supp) 10 mg PRN DAILY PRN [place] CONSTIPATION; Start 12/19/17 at 18:45 Divalproex Sodium (Depakote Sprinkles) 500 mg DAILY PO ; Start 12/20/17 at 09:00 Divalproex Sodium (Depakote Sprinkles) 750 mg QHS PO Last administered on at 20:18; Start 12/19/17 at 21:00 Duloxetine HCl (Cymbalta) 60 mg DAILY PO ; Start 12/20/17 at 09:00 Lacosamide (Vimpat) 200 mg BIDAFTMEAL PO Last administered on 12/19/17at 20:23; Start 12/19/17 at 21:00 Lactobacillus Rhamnosus (Culturelle) 1 cap BID PO Last administered on at 20:18; Start 12/19/17 at 21:00 Levetiracetam (Keppra) 750 mg BIDAFTMEAL PO ; Start 12/20/17 at 09:00 Levothyroxine Sodium (Synthroid) 50 mcg DAILY06 PO ; Start 12/20/17 at 06:00 Non-Formulary Medication (Magnesium Hydroxide (Milk Of Magnesia)) 2,400 mg PRN QHS PRN PO CONSTIPATION; Start 12/19/17 at 18:15; Status UNV Magnesium Oxide (Magnesium Oxide) 400 mg TID PO Last administered on 12/19/17at 20:21; Start 12/19/17 at 21:00 Pantoprazole Sodium (Protonix) 40 mg BIDBFRMEAL PO ; Start 12/20/17 at 07:30 Phenobarbital (Luminal) 64.8 mg QHS PO Last administered on 12/19/17at 20:18; Start 12/19/17 at 21:00 Polyethylene Glycol (miraLAX) 17 gm PRN DAILY PRN PO CONSTIPATION; Start at 09:00 Quetiapine Fumarate (SEROquel) 12.5 mg QID PO Last administered on 12/19/17at 20: 21; Start 12/19/17 at 21:00 Trazodone HCl (Desyrel) 50 mg PRN QHS PRN PO INSOMNIA, MAY REPEAT X1; Start 12/19/17 at 19:00 Ceftriaxone Sodium (Rocephin) 1 gm Q24H IVP ; Start 12/20/17 at 16:00 Sodium Chloride (Normal Saline Flush) 10 ml BID IV ; Start 12/19/17 at 21:00 Sodium Chloride (Normal Saline Flush) 10 ml PRN DAILY PRN IV SEE COMMENTS; Start 12/19/17 at 19:45 Active Scripts Active Reported Ceftriaxone (Ceftriaxone Sodium) 1 Gm Vial 1 Gm IM/IV DAILY16 Levothyroxine Sodium 50 Mcg Tablet 50 Mcg PO DAILYAC Depakote Sprinkle (Divalproex Sodium) 125 Mg Cap.sprink 750 Mg PO QHS Trazodone Hcl 50 Mg Tablet 50 Mg PO PRN QHS PRN Analgesic [place] (Methyl Salicylate/Menthol) 28 Gm Oint...g. 1 Radha TP PRN QID PRN Mag-Al Plus Xs Suspension (Mag Hydrox/Al Hydrox/Simeth) 30 Ml Oral.susp 15 Ml PO PRN AFTMEALHC PRN Culturelle (Lactobacillus Rhamnosus Gg) 1 Each Capsule 1 Cap PO BID Vimpat (Lacosamide) 200 Mg Tablet 200 Mg PO BIDAFTMEAL Cymbalta (Duloxetine Hcl) 60 Mg Capsule.dr 60 Mg PO DAILY Divalproex Sodium 500 Mg Tablet.dr 500 Mg PO DAILY Oyster Shell Calcium (Calcium Carbonate) 500 Mg Tablet 1 Tab PO BIDWMEALS Miralax (Polyethylene Glycol 3350) 17 Gm Powd.pack 17 Gm PO PRN DAILY PRN Milk Of Magnesia (Magnesium Hydroxide) 2,400 Mg/10 Ml Oral.susp 2,400 Mg PO PRN QHS PRN Atorvastatin Calcium 10 Mg Tablet 5 Mg PO QHS Seroquel (Quetiapine Fumarate) 25 Mg Tablet 12.5 Mg PO [id number] Pantoprazole Sodium 40 Mg Tablet.dr 40 Mg PO BIDBFRMEAL Vitamin D3 (Cholecalciferol (Vitamin D3)) 1,000 Unit Tablet 1,000 Unit PO DAILY Phenobarbital 64.8 Mg Tablet 64.8 Mg PO HS Magnesium Oxide 400 Mg Tablet 400 Mg PO TID Tylenol (Acetaminophen) 325 Mg Tablet 650 Mg PO PRN Q6HRS PRN Tramadol Hcl (Tramadol HCl) 50 Mg Tablet 50 Mg PO PRN Q6HRS PRN Senna-S Tablet (Sennosides/Docusate Sodium) 1 Each Tablet 1 Tab PO PRN BID PRN Keppra (Levetiracetam) 250 Mg Tablet 750 Mg PO BIDAFTMEAL Ferrous Sulfate 325 Mg Tablet 325 Mg PO BIDAFTMEAL Bisacodyl 10 Mg Supp.rect 10 Mg RC PRN DAILY PRN Felbamate 400 Mg Tablet 800 Mg PO TID I have reviewed the current psychotropics carefully including drug interactions. Risk benefit ratio favors no change other than as noted in my dictated progress note. Diagnosis: Problems: (1) Functional diarrhea (2) urinary tract infection (3) Left hip arthroplasty (4) Severe major depression with psychotic features (5) Adjustment disorder with depressed mood (6) Bipolar affective, mixed (7) Impulse control disorder (8) Dementia, vascular, with delusions (9) Dementia, vascular, with depression HARVEY QUIJANO MD Dec 19, 2017 20:58
[2017-12-19] MEDS: FELBAMATE 400 MG TABLET PO SCH (23:39)
[2017-12-19] MEDS: 0.9 % SODIUM CHLORIDE 10 ML DISP.SYRIN. IV SCH (23:41)
[2017-12-20 03:17] LABS: HEMOGLOBIN A1C 4.8 % (4.8-5.6)
--- NOTE | 2017-12-20 03:28 | NUR ---
Nursing Note Patient is located in hallway for shift assessment and medication pass. Patient is compliant with all cares and medications. Patient takes her medications whole. Patient is alert and oriented to self only. Patient is interactive with staff during interactions. Patient is appropriate with staff and peers. Patient is currently located in patient room sleeping.
[2017-12-20 04:13] LABS: THYROXINE 5.8 ug/dL (4.5-12.0)
--- NOTE | 2017-12-20 04:56 | HP ---
ADMIT DATE: 12/19/2017 PSYCHIATRIC ADMISSION HISTORY AND EVALUATION This note covers elements not covered in my initial note of ____. IDENTIFYING DATA: The patient is a 62-year-old female, who was transferred to us from room 125, [address] [place] [address], [facility] by Dr. Ackerman after she was medically stabilized for her UTI and seizure disorder following her admission to [address] [place] [address] referred from the [facility], Dr. Newberry, her primary care physician on account of physical aggression, disruptive behaviors within the context of her diagnosis of bipolar disorder, worsening psychotic symptoms, unmanageable behaviors at the snf. CHIEF COMPLAINT: "I am better." HISTORY OF PRESENT ILLNESS: The patient has a long history of bipolar disorder. She has had periods of elation, racing thoughts alternating with depression, paranoia along with worsening cognition and short-term memory deficits. She has been an inpatient with us in the past and most recently has been back at the [facility] doing quite well. Over the last several days, she has become increasingly disruptive, aggressive, was verbally attacking others, noncompliant with medications, much worse over the weekend when she was kicking, hitting, punching staff and residents. She had failed outpatient psychiatric interventions. She was placed on one-on-one status and then sent to the ER without us being informed. In the ER, she was found to have a UTI, transferred to [address] [place] [address], medically stabilized overnight. Behaviors persisted, thus resulting in this referral. PAST PSYCHIATRIC HISTORY: As above. PAST MEDICAL HISTORY: Positive for UTI, seizure disorder, hyperlipidemia. History of subdural hematoma, traumatic; history of GI hemorrhage, muscle weakness, repeated falls, status post fracture of T1 vertebrae. DRUG ALLERGIES: Clobazam, hydrocodone, and vancomycin. FAMILY HISTORY: Noncontributory. SOCIAL HISTORY: No alcohol, drug abuse, physical, sexual or elder abuse history is noted. Not known to be a perpetrator. REACTION TO HOSPITALIZATION: The patient accepting of it. ASSETS: Stable living at the [facility]. REVIEW OF SYSTEMS: No CV, , pulmonary, eye, ENT system symptoms on review. Gait unsteady. MENTAL STATUS EXAMINATION: The patient is oriented to herself and situation. Speech has some latency, often responses monosyllabic. Abstraction fair, computation impaired, language function intact. Speech has moderate latency, low in rate and rhythm. No active suicidal or homicidal ideation. She remains somewhat irritable, labile at times. LABORATORY DATA: Labs reviewed. IMPRESSION: Bipolar 1 disorder, mixed with psychotic features; anxiety disorder, unspecified; impulse control disorder, unspecified; mild cognitive impairment. Rest as above including urinary tract infection and seizure disorder. PLAN: Admit to Geropsychiatry Unit at [facility]. I will see the patient daily individually from a psychiatric standpoint. Medically, she will be followed by Dr. Ackerman/Dr. Townsend. Continue current psychotropics, observe baseline, adjust further as clinically indicated. Estimated length of stay 10-12 days. DISPOSITION: Plan is back to the above snf. MAN Luis QUIJANO MD DR: LOYD/eboni JOB#: [id number] / [id number]
[2017-12-20] MEDS: LEVOTHYROXINE 50 MCG TABLET PO SCH (06:46)
[2017-12-20 06:58] VITALS: BP 108/69
[2017-12-20] MEDS: LACTOBACILLUS RHAMNOSUS GG 1 CAPSULE. PO SCH ×2 (07:36→19:40)
[2017-12-20] MEDS: QUEtiapine 25 MG TABLET. PO SCH ×4 (07:36→19:41)
[2017-12-20] MEDS: MAGNESIUM OXIDE 400 MG TABLET PO SCH ×3 (07:36→19:40)
[2017-12-20] MEDS: DIVALPROEX 125 MG CAP.SPRINK PO SCH ×2 (08:12→19:41)
[2017-12-20] MEDS: FERROUS SULFATE 325 MG TABLET. PO SCH ×2 (08:12→14:52)
[2017-12-20] MEDS: FELBAMATE 400 MG TABLET PO SCH ×3 (08:13→20:08)
[2017-12-20] MEDS: CHOLECALCIFEROL (VITAMIN D3) 1,000 UNIT TABLET PO SCH (08:13)
[2017-12-20] MEDS: DULoxetine HCL 60 MG CAPSULE.DR PO SCH (08:13)
[2017-12-20] MEDS: levETIRAcetam 250 MG TABLET PO SCH ×2 (08:13→14:52)
[2017-12-20] MEDS: PANTOPRAZOLE 40 MG TABLET. PO SCH ×2 (08:13→14:52)
[2017-12-20] MEDS: CALCIUM CARBONATE 500 MG TABLET PO SCH ×2 (08:13→14:52)
[2017-12-20] MEDS: 0.9 % SODIUM CHLORIDE 10 ML DISP.SYRIN. IV SCH ×2 (08:14→19:45)
[2017-12-20] MEDS: LACOSAMIDE 50 MG TABLET PO SCH ×2 (08:17→14:51)
[2017-12-20] MEDS ORDERED: POLYETHYLENE GLYCOL 3350 17 GM PACKET. PO PRN (09:00)
--- NOTE | 2017-12-20 09:18 | NUR ---
Nursing Note Pt pleasant calm and cooperative, compliant with meds no behaviors.
--- NOTE | 2017-12-20 14:26 | NUR ---
Dr Requested that Dr Malik look at new xray of L wrist based on changes and make recommendations. Ortho out of office till Saturday. Left referral for Saturday. ABT clarified to be taken x 10 days.
[2017-12-20] MEDS: cefTRIAXone IV Push 1 GM VIAL. IVP SCH (15:40)
[2017-12-20] MEDS ORDERED: cefTRIAXone SODIUM 1 GM VIAL IV SCH (16:00)
[2017-12-20 16:02] VITALS: BP 108/74
[2017-12-20 17:57] LABS: THYROID STIM HORMONE (TSH) 3.926 uIU/mL (0.358-3.740)
[2017-12-20] MEDS: PHENobarbital 32.4 MG TABLET. PO SCH (19:40)
[2017-12-20] MEDS: MAGNESIUM HYDROXIDE 2,400 MG/30 ML ORAL.SUSP. PO PRN (19:40)
[2017-12-20] MEDS: ATORVASTATIN CALCIUM 10 MG TABLET. PO SCH (19:41)
--- NOTE | 2017-12-20 20:48 | PDOC ---
Exam Note: David Note: Please also refer to the separate dictated note~for this date of service dictated separately.~Patient seen individually. Discussed the patient with Nursing staff reviewed the chart.~Reviewed interim history and current functioning. Reviewed vital signs,~Labs/ Radiology~and current medications noted below. Continue current treatment with the changes noted in the dictated addendum note Assessment: Vital Signs: Vital Signs Date Time Temp Pulse Resp B/P (MAP) Pulse Ox O2 Delivery O2 Flow Rate FiO2 12/20/17 16:02 98.2 65 18 108/74 (85) 99 I&O Intake and Output 12/20/17 07:00 Intake Total 360 ml Balance 360 ml Intake Oral 360 ml # Voids 1 Current Medications: Meds: Current Medications Acetaminophen (Tylenol) 650 mg PRN Q6HRS PRN PO PAIN / TEMP; Start 12/19/17 at 18:15 Multi-Ingredient Ointment (Analgesic [place]) 1 radha PRN QID PRN TP MUSCLE PAIN; Start 12/19/17 at 18:15 Al Hydroxide/Mg Hydroxide (Mylanta Plus Xs) 15 ml PRN AFTMEALHC PRN PO DYSPEPSIA; Start 12/19/17 at 18:15 Magnesium Hydroxide (Milk Of Magnesia) 2,400 mg PRN QHS PRN PO CONSTIPATION Last administered on 12/20/17at 19:40; Start 12/19/17 at 18:15 Acetaminophen (Tylenol) 650 mg PRN Q6HRS PRN PO PAIN / TEMP; Start 12/19/17 at 18:15; Status UNV Calcium Carbonate/ Glycine (Oscal) 500 mg BIDWMEALS PO Last administered on 12/20at 14:52; Start 12/20/17 at 08:00 Ceftriaxone Sodium (Rocephin) 1 gm DAILY16 IV ; Start 12/20/17 at 16:00; Status UNV Vitamin D (Vitamin D3) 1,000 unit DAILY PO Last administered on 12/20/17at 08:13 ; Start 12/20/17 at 09:00 Felbamate (Felbatol) 800 mg TID PO Last administered on 12/20/17at 20:08; Start 12/19/17 at 21:00 Ferrous Sulfate (Feosol) 325 mg BIDAFTMEAL PO Last administered on 12/20/17at 14: 52; Start 12/20/17 at 09:00 Al Hydroxide/Mg Hydroxide (Mylanta Plus Xs) 15 ml PRN AFTMEALHC PRN PO DYSPEPSIA; Start 12/19/17 at 18:15; Status UNV Multi-Ingredient Ointment (Analgesic [place]) 1 radha PRN QID PRN TP MUSCLE PAIN; Start 12/19/17 at 18:15; Status UNV Senna/Docusate Sodium (Senna Plus) 1 tab PRN BID PRN PO CONSTIPATION; Start 12/19/17 at 18:15 Tramadol HCl (Ultram) 50 mg PRN Q6HRS PRN PO PAIN; Start 12/19/17 at 18:15 Atorvastatin Calcium (Lipitor) 5 mg QHS PO Last administered on 12/20/17 19:41 ; Start 12/19/17 at 21:00 Bisacodyl (Dulcolax Supp) 10 mg PRN DAILY PRN [place] CONSTIPATION; Start 12/19/17 at 18:45 Divalproex Sodium (Depakote Sprinkles) 500 mg DAILY PO Last administered on 12/20at 08:12; Start 12/20/17 at 09:00 Divalproex Sodium (Depakote Sprinkles) 750 mg QHS PO Last administered on 19:41; Start 12/19/17 at 21:00 Duloxetine HCl (Cymbalta) 60 mg DAILY PO Last administered on 12/20/17at 08:13; Start 12/20/17 at 09:00 Lacosamide (Vimpat) 200 mg BIDAFTMEAL PO Last administered on 12/20/17 14:51; Start 12/19/17 at 21:00 Lactobacillus Rhamnosus (Culturelle) 1 cap BID PO Last administered on 19:40; Start 12/19/17 at 21:00 Levetiracetam (Keppra) 750 mg BIDAFTMEAL PO Last administered on 12/20/17 14:52 ; Start 12/20/17 at 09:00 Levothyroxine Sodium (Synthroid) 50 mcg DAILY06 PO Last administered on 06:46; Start 12/20/17 at 06:00 Non-Formulary Medication (Magnesium Hydroxide (Milk Of Magnesia)) 2,400 mg PRN QHS PRN PO CONSTIPATION; Start 12/19/17 at 18:15; Status UNV Magnesium Oxide (Magnesium Oxide) 400 mg TID PO Last administered on 12/20/17at 19:40; Start 12/19/17 at 21:00 Pantoprazole Sodium (Protonix) 40 mg BIDBFRMEAL PO Last administered on at 14:52; Start 12/20/17 at 07:30 Phenobarbital (Luminal) 64.8 mg QHS PO Last administered on 12/20/17 19:40; Start 12/19/17 at 21:00 Polyethylene Glycol (miraLAX) 17 gm PRN DAILY PRN PO CONSTIPATION; Start at 09:00 Quetiapine Fumarate (SEROquel) 12.5 mg QID PO Last administered on 12/20/17at 19: 41; Start 12/19/17 at 21:00 Trazodone HCl (Desyrel) 50 mg PRN QHS PRN PO INSOMNIA, MAY REPEAT X1; Start 12/19/17 at 19:00 Ceftriaxone Sodium (Rocephin) 1 gm Q24H IVP Last administered on 12/20/17at 15:40 ; Start 12/20/17 at 16:00 Sodium Chloride (Normal Saline Flush) 10 ml BID IV Last administered on 19:45; Start 12/19/17 at 21:00 Sodium Chloride (Normal Saline Flush) 10 ml PRN DAILY PRN IV SEE COMMENTS; Start 12/19/17 at 19:45 Active Scripts Active Reported Ceftriaxone (Ceftriaxone Sodium) 1 Gm Vial 1 Gm IM/IV DAILY16 Levothyroxine Sodium 50 Mcg Tablet 50 Mcg PO DAILYAC Depakote Sprinkle (Divalproex Sodium) 125 Mg Cap.sprink 750 Mg PO QHS Trazodone Hcl 50 Mg Tablet 50 Mg PO PRN QHS PRN Analgesic [place] (Methyl Salicylate/Menthol) 28 Gm Oint...g. 1 Radha TP PRN QID PRN Mag-Al Plus Xs Suspension (Mag Hydrox/Al Hydrox/Simeth) 30 Ml Oral.susp 15 Ml PO PRN AFTMEALHC PRN Culturelle (Lactobacillus Rhamnosus Gg) 1 Each Capsule 1 Cap PO BID Vimpat (Lacosamide) 200 Mg Tablet 200 Mg PO BIDAFTMEAL Cymbalta (Duloxetine Hcl) 60 Mg Capsule.dr 60 Mg PO DAILY Divalproex Sodium 500 Mg Tablet.dr 500 Mg PO DAILY Oyster Shell Calcium (Calcium Carbonate) 500 Mg Tablet 1 Tab PO BIDWMEALS Miralax (Polyethylene Glycol 3350) 17 Gm Powd.pack 17 Gm PO PRN DAILY PRN Milk Of Magnesia (Magnesium Hydroxide) 2,400 Mg/10 Ml Oral.susp 2,400 Mg PO PRN QHS PRN Atorvastatin Calcium 10 Mg Tablet 5 Mg PO QHS Seroquel (Quetiapine Fumarate) 25 Mg Tablet 12.5 Mg PO [id number] Pantoprazole Sodium 40 Mg Tablet.dr 40 Mg PO BIDBFRMEAL Vitamin D3 (Cholecalciferol (Vitamin D3)) 1,000 Unit Tablet 1,000 Unit PO DAILY Phenobarbital 64.8 Mg Tablet 64.8 Mg PO HS Magnesium Oxide 400 Mg Tablet 400 Mg PO TID Tylenol (Acetaminophen) 325 Mg Tablet 650 Mg PO PRN Q6HRS PRN Tramadol Hcl (Tramadol HCl) 50 Mg Tablet 50 Mg PO PRN Q6HRS PRN Senna-S Tablet (Sennosides/Docusate Sodium) 1 Each Tablet 1 Tab PO PRN BID PRN Keppra (Levetiracetam) 250 Mg Tablet 750 Mg PO BIDAFTMEAL Ferrous Sulfate 325 Mg Tablet 325 Mg PO BIDAFTMEAL Bisacodyl 10 Mg Supp.rect 10 Mg RC PRN DAILY PRN Felbamate 400 Mg Tablet 800 Mg PO TID I have reviewed the current psychotropics carefully including drug interactions. Risk benefit ratio favors no change other than as noted in my dictated progress note. Diagnosis: Problems: (1) Functional diarrhea (2) urinary tract infection (3) Left hip arthroplasty (4) Severe major depression with psychotic features (5) Adjustment disorder with depressed mood (6) Bipolar affective, mixed (7) Impulse control disorder (8) Dementia, vascular, with delusions (9) Dementia, vascular, with depression HARVEY QUIJANO MD Dec 20, 2017 20:48
--- NOTE | 2017-12-20 22:36 | NUR ---
Pt in day room at shift change sitting quietly watching a movie. Pt calm, pleasant, cooperative with meds and assessment. 20G IV R hand patent, dressing C/D/I.
--- NOTE | 2017-12-21 01:51 | CONS ---
DATE OF CONSULTATION: 12/20/2017 REASON FOR CONSULTATION: Medical management. HISTORY OF PRESENT ILLNESS: The patient is a 62-year-old female patient who was admitted to [address] [place] [address] and she had a urinary tract infection, treated with IV Rocephin. She apparently has seizure disorder and the plan originally was to [facility] on account of physical aggression, disruptive behavior within the context of her diagnosis of bipolar disorder, worsening psychotic symptoms, unmanageable behavior at the detention. While at [address] [place] [address], she continued to refuse her medication, uncooperative and noncompliant, and she developed breakthrough seizures for which she was given her antiepileptic medications intravenously and once stabilized, she was transferred to [facility] for inpatient psychiatric stabilization. Her urine culture has grown more than 100,000 colony forming units per mL of gram-negative rods. The identification and sensitivity is still pending at the time of this dictation, although clinically she seems to be responding to that. PAST PSYCHIATRIC HISTORY: Significant for bipolar disorder with worsening psychotic symptoms. PAST MEDICAL HISTORY: Significant for seizure disorder, hyperlipidemia, traumatic subdural hematoma, history of GI hemorrhage muscle weakness, recurrent falls, status post fracture of T1 vertebrae. FAMILY HISTORY: Noncontributory. SOCIAL HISTORY: She is a resident at a half-way facility. She does not smoke, drink alcohol or recreational drugs. REVIEW OF SYSTEMS: As per history of present illness. PHYSICAL EXAMINATION: GENERAL: On examining her, she looked well and was clearly in no apparent respiratory distress. She was pale, but no jaundice, cyanosis, or thyromegaly. No jugular venous distension. No limb edema. VITAL SIGNS: Her heart rate was 65, blood pressure 108/74, temperature was 98.2, respiratory rate was 18 and oxygen saturation was 99%. HEAD, EYES, EARS, NOSE AND THROAT: Showed normocephalic, atraumatic. NECK: Supple. HEART: Showed normal first and second sounds. No gallop, rub or murmur. CHEST: Clear to auscultation. No crepitation or rhonchi. ABDOMEN: Distended, soft, nontender. No guarding or rigidity. No organomegaly. Hernial orifice intact. Bowel sounds normal. NEUROLOGIC: She was awake, alert, responding appropriately. LABORATORY DATA: Showed that her hemoglobin A1c was 4.8%. Magnesium was 2.1. Serum iron 55, TIBC was 246, percent saturation was 22, total T4 of 5.8. Total T3 was 85. Her most recent urine culture showed growth of more than 100,000 colony forming units per mL of gram-negative rods. The identification and sensitivity is still pending at the time of this dictation. ASSESSMENT AND PLAN: In summary, this is a 62-year-old female patient who was transferred to [address] [place] [address] after she was treated for breakthrough seizure and urinary tract infection is here for inpatient psychiatric stabilization. All her lab work and vital signs are stable. I will continue to monitor the culture and sensitivity to find out the identification and sensitivity and eventually switched her to oral antibiotic finished the treatment. Thank you, Dr. Lopes for allowing me to participate in the care of this patient. JOHNIE LANDERS MD DR: DORIAN/eboni JOB#: [id number] / [id number]
[2017-12-21] MEDS: LEVOTHYROXINE 50 MCG TABLET PO SCH (05:47)
[2017-12-21 05:59] VITALS: BP 99/67
[2017-12-21] MEDS: PANTOPRAZOLE 40 MG TABLET. PO SCH ×2 (08:04→17:12)
[2017-12-21] MEDS: CALCIUM CARBONATE 500 MG TABLET PO SCH ×2 (08:04→17:33)
[2017-12-21] MEDS: DULoxetine HCL 60 MG CAPSULE.DR PO SCH (08:04)
[2017-12-21] MEDS: levETIRAcetam 250 MG TABLET PO SCH ×2 (08:04→17:33)
[2017-12-21] MEDS: LACOSAMIDE 50 MG TABLET PO SCH ×2 (08:04→17:34)
[2017-12-21] MEDS: MAGNESIUM OXIDE 400 MG TABLET PO SCH ×3 (08:04→19:47)
[2017-12-21] MEDS: LACTOBACILLUS RHAMNOSUS GG 1 CAPSULE. PO SCH ×2 (08:04→19:46)
[2017-12-21] MEDS: FERROUS SULFATE 325 MG TABLET. PO SCH ×2 (08:04→17:33)
[2017-12-21] MEDS: CHOLECALCIFEROL (VITAMIN D3) 1,000 UNIT TABLET PO SCH (08:05)
[2017-12-21] MEDS: DIVALPROEX 125 MG CAP.SPRINK PO SCH ×2 (08:05→19:46)
[2017-12-21] MEDS: QUEtiapine 25 MG TABLET. PO SCH ×4 (08:08→19:47)
[2017-12-21] MEDS: FELBAMATE 400 MG TABLET PO SCH ×3 (08:09→19:48)
[2017-12-21] MEDS: 0.9 % SODIUM CHLORIDE 10 ML DISP.SYRIN. IV SCH ×2 (08:17→19:49)
--- NOTE | 2017-12-21 08:26 | NUR ---
Pt calm, compliant w/ medications, made eye contact w/ this nurse during neuro asses. Alert to situation, name, but thought year was 1960.
[2017-12-21] MEDS: cefTRIAXone IV Push 1 GM VIAL. IVP SCH (15:55)
[2017-12-21 16:20] VITALS: BP 153/61
--- NOTE | 2017-12-21 17:54 | NUR ---
Pt's sister brought a spare pair of her own glasses because pt did not show up to unit with her glasses. Sister is unsure if [facility] sent glasses with pt to ED. ED staff contacted, glasses not seen on their unit; same for staff on . Glasses placed on pt's inventory list; however, unable to take photo of glasses d/t camera being "locked" mode. Other staff members unable to "unlock" camera. Placed camera on sound art instructor. Will attempt to take photo again before shift change, if unsuccessful, will pass along to next shift. Addendum: 12/21/17 at 1804 by EM DUTTON RN Sticker with Pt's info placed on glasses.
[2017-12-21] MEDS: PHENobarbital 32.4 MG TABLET. PO SCH (19:47)
[2017-12-21] MEDS: ATORVASTATIN CALCIUM 10 MG TABLET. PO SCH (19:47)
--- NOTE | 2017-12-21 23:24 | PDOC ---
Exam Note: David Note: Please also refer to the separate dictated note~for this date of service dictated separately.~Patient seen individually. Discussed the patient with Nursing staff reviewed the chart.~Reviewed interim history and current functioning. Reviewed vital signs,~Labs/ Radiology~and current medications noted below. Continue current treatment with the changes noted in the dictated addendum note Assessment: Vital Signs: Vital Signs Date Time Temp Pulse Resp B/P (MAP) Pulse Ox O2 Delivery O2 Flow Rate FiO2 12/21/17 16:20 97.2 76 20 153/61 (91) 96 12/21/17 05:59 Room Air I&O Intake and Output 12/21/17 07:00 Intake Total 720 ml Output Total 120 ml Balance 600 ml Intake Oral 720 ml Output Urine Total 120 ml Current Medications: Meds: Current Medications Acetaminophen (Tylenol) 650 mg PRN Q6HRS PRN PO PAIN / TEMP; Start 12/19/17 at 18:15 Multi-Ingredient Ointment (Analgesic [place]) 1 radha PRN QID PRN TP MUSCLE PAIN; Start 12/19/17 at 18:15 Al Hydroxide/Mg Hydroxide (Mylanta Plus Xs) 15 ml PRN AFTMEALHC PRN PO DYSPEPSIA; Start 12/19/17 at 18:15 Magnesium Hydroxide (Milk Of Magnesia) 2,400 mg PRN QHS PRN PO CONSTIPATION Last administered on 12/20/17at 19:40; Start 12/19/17 at 18:15 Acetaminophen (Tylenol) 650 mg PRN Q6HRS PRN PO PAIN / TEMP; Start 12/19/17 at 18:15; Status UNV Calcium Carbonate/ Glycine (Oscal) 500 mg BIDWMEALS PO Last administered on 12/21at 17:33; Start 12/20/17 at 08:00 Ceftriaxone Sodium (Rocephin) 1 gm DAILY16 IV ; Start 12/20/17 at 16:00; Status UNV Vitamin D (Vitamin D3) 1,000 unit DAILY PO Last administered on 12/21/17at 08:05 ; Start 12/20/17 at 09:00 Felbamate (Felbatol) 800 mg TID PO Last administered on 12/21/17at 19:48; Start 12/19/17 at 21:00 Ferrous Sulfate (Feosol) 325 mg BIDAFTMEAL PO Last administered on 12/21/17 17: 33; Start 12/20/17 at 09:00 Al Hydroxide/Mg Hydroxide (Mylanta Plus Xs) 15 ml PRN AFTMEALHC PRN PO DYSPEPSIA; Start 12/19/17 at 18:15; Status UNV Multi-Ingredient Ointment (Analgesic [place]) 1 radha PRN QID PRN TP MUSCLE PAIN; Start 12/19/17 at 18:15; Status UNV Senna/Docusate Sodium (Senna Plus) 1 tab PRN BID PRN PO CONSTIPATION; Start 12/19/17 at 18:15 Tramadol HCl (Ultram) 50 mg PRN Q6HRS PRN PO PAIN; Start 12/19/17 at 18:15 Atorvastatin Calcium (Lipitor) 5 mg QHS PO Last administered on 12/21/17 19:47 ; Start 12/19/17 at 21:00 Bisacodyl (Dulcolax Supp) 10 mg PRN DAILY PRN [place] CONSTIPATION; Start 12/19/17 at 18:45 Divalproex Sodium (Depakote Sprinkles) 500 mg DAILY PO Last administered on 12/21 08:05; Start 12/20/17 at 09:00 Divalproex Sodium (Depakote Sprinkles) 750 mg QHS PO Last administered on 19:46; Start 12/19/17 at 21:00 Duloxetine HCl (Cymbalta) 60 mg DAILY PO Last administered on 12/21/17 08:04; Start 12/20/17 at 09:00 Lacosamide (Vimpat) 200 mg BIDAFTMEAL PO Last administered on 12/21/17 17:34; Start 12/19/17 at 21:00 Lactobacillus Rhamnosus (Culturelle) 1 cap BID PO Last administered on 19:46; Start 12/19/17 at 21:00 Levetiracetam (Keppra) 750 mg BIDAFTMEAL PO Last administered on 12/21/17 17:33 ; Start 12/20/17 at 09:00 Levothyroxine Sodium (Synthroid) 50 mcg DAILY06 PO Last administered on 05:47; Start 12/20/17 at 06:00 Non-Formulary Medication (Magnesium Hydroxide (Milk Of Magnesia)) 2,400 mg PRN QHS PRN PO CONSTIPATION; Start 12/19/17 at 18:15; Status UNV Magnesium Oxide (Magnesium Oxide) 400 mg TID PO Last administered on 12/21/17 19:47; Start 12/19/17 at 21:00 Pantoprazole Sodium (Protonix) 40 mg BIDBFRMEAL PO Last administered on 17:12; Start 12/20/17 at 07:30 Phenobarbital (Luminal) 64.8 mg QHS PO Last administered on 12/21/17 19:47; Start 12/19/17 at 21:00 Polyethylene Glycol (miraLAX) 17 gm PRN DAILY PRN PO CONSTIPATION; Start at 09:00 Quetiapine Fumarate (SEROquel) 12.5 mg QID PO Last administered on 12/21/17 19: 47; Start 12/19/17 at 21:00 Trazodone HCl (Desyrel) 50 mg PRN QHS PRN PO INSOMNIA, MAY REPEAT X1 Last administered on 12/20/17at 23:32; Start 12/19/17 at 19:00 Ceftriaxone Sodium (Rocephin) 1 gm Q24H IVP Last administered on 12/21/17 15:55 ; Start 12/20/17 at 16:00 Sodium Chloride (Normal Saline Flush) 10 ml BID IV Last administered on 19:49; Start 12/19/17 at 21:00 Sodium Chloride (Normal Saline Flush) 10 ml PRN DAILY PRN IV SEE COMMENTS; Start 12/19/17 at 19:45 Active Scripts Active Reported Ceftriaxone (Ceftriaxone Sodium) 1 Gm Vial 1 Gm IM/IV DAILY16 Levothyroxine Sodium 50 Mcg Tablet 50 Mcg PO DAILYAC Depakote Sprinkle (Divalproex Sodium) 125 Mg Cap.sprink 750 Mg PO QHS Trazodone Hcl 50 Mg Tablet 50 Mg PO PRN QHS PRN Analgesic [place] (Methyl Salicylate/Menthol) 28 Gm Oint...g. 1 Radha TP PRN QID PRN Mag-Al Plus Xs Suspension (Mag Hydrox/Al Hydrox/Simeth) 30 Ml Oral.susp 15 Ml PO PRN AFTMEALHC PRN Culturelle (Lactobacillus Rhamnosus Gg) 1 Each Capsule 1 Cap PO BID Vimpat (Lacosamide) 200 Mg Tablet 200 Mg PO BIDAFTMEAL Cymbalta (Duloxetine Hcl) 60 Mg Capsule.dr 60 Mg PO DAILY Divalproex Sodium 500 Mg Tablet.dr 500 Mg PO DAILY Oyster Shell Calcium (Calcium Carbonate) 500 Mg Tablet 1 Tab PO BIDWMEALS Miralax (Polyethylene Glycol 3350) 17 Gm Powd.pack 17 Gm PO PRN DAILY PRN Milk Of Magnesia (Magnesium Hydroxide) 2,400 Mg/10 Ml Oral.susp 2,400 Mg PO PRN QHS PRN Atorvastatin Calcium 10 Mg Tablet 5 Mg PO QHS Seroquel (Quetiapine Fumarate) 25 Mg Tablet 12.5 Mg PO [id number] Pantoprazole Sodium 40 Mg Tablet.dr 40 Mg PO BIDBFRMEAL Vitamin D3 (Cholecalciferol (Vitamin D3)) 1,000 Unit Tablet 1,000 Unit PO DAILY Phenobarbital 64.8 Mg Tablet 64.8 Mg PO HS Magnesium Oxide 400 Mg Tablet 400 Mg PO TID Tylenol (Acetaminophen) 325 Mg Tablet 650 Mg PO PRN Q6HRS PRN Tramadol Hcl (Tramadol HCl) 50 Mg Tablet 50 Mg PO PRN Q6HRS PRN Senna-S Tablet (Sennosides/Docusate Sodium) 1 Each Tablet 1 Tab PO PRN BID PRN Keppra (Levetiracetam) 250 Mg Tablet 750 Mg PO BIDAFTMEAL Ferrous Sulfate 325 Mg Tablet 325 Mg PO BIDAFTMEAL Bisacodyl 10 Mg Supp.rect 10 Mg RC PRN DAILY PRN Felbamate 400 Mg Tablet 800 Mg PO TID I have reviewed the current psychotropics carefully including drug interactions. Risk benefit ratio favors no change other than as noted in my dictated progress note. Diagnosis: Problems: (1) Functional diarrhea (2) urinary tract infection (3) Left hip arthroplasty (4) Severe major depression with psychotic features (5) Adjustment disorder with depressed mood (6) Bipolar affective, mixed (7) Impulse control disorder (8) Dementia, vascular, with delusions (9) Dementia, vascular, with depression HARVEY QUIJANO MD Dec 21, 2017 23:24
--- NOTE | 2017-12-22 00:33 | NUR ---
Behavior Intervention Response and Plan: BIRP Note: Behavior: Assumed Care of patient, patient located in Day Room at shift change. Patient exhibited the following behavior Calm, Drowsy, Withdrawn. Brief assessment on rounds of vital signs, medication needs, lab studies, and pain. Treatment plan problems 1 and 2. Intervention: Patient assessed and the following interventions initiated safety checks 15 Minute Checks Cognitive Assessment , Head to toe Assessment , Medications. Response: After interactions and interventions patient responded in the following manner, Calm , Compliant ,Cooperative. Continue to assess behaviors and condition will continue to monitor throughout the shift as needed. Patient educated on ADL's, and hand hygiene. Plan: Continue to monitor Master Treatment Plan for patient's progress toward short term goals of Decreased Agitation, Decreased Aggression, [facility] goals to return to previous living setting vs placement. Continue to assess patient for changes in above assessment. Monitor for medication needs, pain, and safety concerns. Hourly rounding performed to ensure safe environment.
[2017-12-22 06:07] VITALS: BP 95/56
[2017-12-22] MEDS: LEVOTHYROXINE 50 MCG TABLET PO SCH (06:29)
[2017-12-22] MEDS: FERROUS SULFATE 325 MG TABLET. PO SCH ×2 (08:27→17:11)
[2017-12-22] MEDS: FELBAMATE 400 MG TABLET PO SCH ×3 (08:27→19:38)
[2017-12-22] MEDS: DIVALPROEX 125 MG CAP.SPRINK PO SCH ×2 (08:27→19:39)
[2017-12-22] MEDS: DULoxetine HCL 60 MG CAPSULE.DR PO SCH (08:27)
[2017-12-22] MEDS: levETIRAcetam 250 MG TABLET PO SCH ×2 (08:28→17:11)
[2017-12-22] MEDS: CALCIUM CARBONATE 500 MG TABLET PO SCH ×2 (08:28→17:11)
[2017-12-22] MEDS: MAGNESIUM OXIDE 400 MG TABLET PO SCH ×3 (08:28→19:38)
[2017-12-22] MEDS: LACTOBACILLUS RHAMNOSUS GG 1 CAPSULE. PO SCH ×2 (08:28→19:38)
[2017-12-22] MEDS: CHOLECALCIFEROL (VITAMIN D3) 1,000 UNIT TABLET PO SCH (08:28)
[2017-12-22] MEDS: PANTOPRAZOLE 40 MG TABLET. PO SCH ×2 (08:28→17:11)
[2017-12-22] MEDS: QUEtiapine 25 MG TABLET. PO SCH ×4 (08:31→19:38)
[2017-12-22] MEDS: LACOSAMIDE 50 MG TABLET PO SCH ×2 (08:32→17:11)
[2017-12-22] MEDS: 0.9 % SODIUM CHLORIDE 10 ML DISP.SYRIN. IV SCH ×2 (10:05→21:24)
--- NOTE | 2017-12-22 14:00 | NUR ---
patient's left hand is swollen, painful, with decreased strength compared to right hand. MD notified, new order received. Will continue to monitor.
[2017-12-22 16:03] VITALS: BP 124/75
--- NOTE | 2017-12-22 16:29 | RAD ---
EXAM: 3 views left hand DATE: 12/22/2017 2:01 PM INDICATION: Increased pain, decreased mobility, edema, prior injury COMPARISON: No Prior FINDINGS: Decreased bone mineral density. Progressively healing fourth metacarpal shaft fracture is again seen, what mild foreshortening. No definite new fractures seen. Chondrocalcinosis TFCC. Thumb CMC and scattered IP joint degenerative changes. IMPRESSION: 1. Progressively healing fourth metacarpal shaft fracture with mild foreshortening, otherwise in near-anatomic alignment. 2. No definite new fracture is identified within the constraints of osteopenia. Electronically signed by: Zan Love MD (12/22/2017 4:26 PM) [facility]
[2017-12-22] MEDS: cefTRIAXone IV Push 1 GM VIAL. IVP SCH (17:12)
[2017-12-22] MEDS: ATORVASTATIN CALCIUM 10 MG TABLET. PO SCH (19:39)
[2017-12-22] MEDS: PHENobarbital 32.4 MG TABLET. PO SCH (19:41)
--- NOTE | 2017-12-22 20:58 | PDOC ---
Exam Note: David Note: Please also refer to the separate dictated note~for this date of service dictated separately.~Patient seen individually. Discussed the patient with Nursing staff reviewed the chart.~Reviewed interim history and current functioning. Reviewed vital signs,~Labs/ Radiology~and current medications noted below. Continue current treatment with the changes noted in the dictated addendum note Assessment: Vital Signs: Vital Signs Date Time Temp Pulse Resp B/P (MAP) Pulse Ox O2 Delivery O2 Flow Rate FiO2 12/22/17 16:03 98.0 70 18 124/75 (91) 99 12/22/17 06:07 Room Air I&O Intake and Output 12/22/17 07:00 Intake Total 845 ml Balance 845 ml Intake Oral 845 ml Current Medications: Meds: Current Medications Acetaminophen (Tylenol) 650 mg PRN Q6HRS PRN PO PAIN / TEMP; Start 12/19/17 at 18:15 Multi-Ingredient Ointment (Analgesic [place]) 1 radha PRN QID PRN TP MUSCLE PAIN; Start 12/19/17 at 18:15 Al Hydroxide/Mg Hydroxide (Mylanta Plus Xs) 15 ml PRN AFTMEALHC PRN PO DYSPEPSIA; Start 12/19/17 at 18:15 Magnesium Hydroxide (Milk Of Magnesia) 2,400 mg PRN QHS PRN PO CONSTIPATION Last administered on 12/20/17at 19:40; Start 12/19/17 at 18:15 Acetaminophen (Tylenol) 650 mg PRN Q6HRS PRN PO PAIN / TEMP; Start 12/19/17 at 18:15; Status UNV Calcium Carbonate/ Glycine (Oscal) 500 mg BIDWMEALS PO Last administered on 12/22at 17:11; Start 12/20/17 at 08:00 Ceftriaxone Sodium (Rocephin) 1 gm DAILY16 IV ; Start 12/20/17 at 16:00; Status UNV Vitamin D (Vitamin D3) 1,000 unit DAILY PO Last administered on 12/22/17at 08:28 ; Start 12/20/17 at 09:00 Felbamate (Felbatol) 800 mg TID PO Last administered on 12/22/17at 19:38; Start 12/19/17 at 21:00 Ferrous Sulfate (Feosol) 325 mg BIDAFTMEAL PO Last administered on 12/22/17 17: 11; Start 12/20/17 at 09:00 Al Hydroxide/Mg Hydroxide (Mylanta Plus Xs) 15 ml PRN AFTMEALHC PRN PO DYSPEPSIA; Start 12/19/17 at 18:15; Status UNV Multi-Ingredient Ointment (Analgesic [place]) 1 radha PRN QID PRN TP MUSCLE PAIN; Start 12/19/17 at 18:15; Status UNV Senna/Docusate Sodium (Senna Plus) 1 tab PRN BID PRN PO CONSTIPATION; Start 12/19/17 at 18:15 Tramadol HCl (Ultram) 50 mg PRN Q6HRS PRN PO PAIN; Start 12/19/17 at 18:15 Atorvastatin Calcium (Lipitor) 5 mg QHS PO Last administered on 12/22/17 19:39 ; Start 12/19/17 at 21:00 Bisacodyl (Dulcolax Supp) 10 mg PRN DAILY PRN [place] CONSTIPATION; Start 12/19/17 at 18:45 Divalproex Sodium (Depakote Sprinkles) 500 mg DAILY PO Last administered on 12/22 08:27; Start 12/20/17 at 09:00 Divalproex Sodium (Depakote Sprinkles) 750 mg QHS PO Last administered on 19:39; Start 12/19/17 at 21:00 Duloxetine HCl (Cymbalta) 60 mg DAILY PO Last administered on 12/22/17 08:27; Start 12/20/17 at 09:00 Lacosamide (Vimpat) 200 mg BIDAFTMEAL PO Last administered on 12/22/17 17:11; Start 12/19/17 at 21:00 Lactobacillus Rhamnosus (Culturelle) 1 cap BID PO Last administered on 19:38; Start 12/19/17 at 21:00 Levetiracetam (Keppra) 750 mg BIDAFTMEAL PO Last administered on 12/22/17 17:11 ; Start 12/20/17 at 09:00 Levothyroxine Sodium (Synthroid) 50 mcg DAILY06 PO Last administered on 06:29; Start 12/20/17 at 06:00 Non-Formulary Medication (Magnesium Hydroxide (Milk Of Magnesia)) 2,400 mg PRN QHS PRN PO CONSTIPATION; Start 12/19/17 at 18:15; Status UNV Magnesium Oxide (Magnesium Oxide) 400 mg TID PO Last administered on 12/22/17 19:38; Start 12/19/17 at 21:00 Pantoprazole Sodium (Protonix) 40 mg BIDBFRMEAL PO Last administered on 17:11; Start 12/20/17 at 07:30 Phenobarbital (Luminal) 64.8 mg QHS PO Last administered on 12/22/17 19:41; Start 12/19/17 at 21:00 Polyethylene Glycol (miraLAX) 17 gm PRN DAILY PRN PO CONSTIPATION; Start at 09:00 Quetiapine Fumarate (SEROquel) 12.5 mg QID PO Last administered on 12/22/17 19: 38; Start 12/19/17 at 21:00 Trazodone HCl (Desyrel) 50 mg PRN QHS PRN PO INSOMNIA, MAY REPEAT X1 Last administered on 12/20/17at 23:32; Start 12/19/17 at 19:00 Ceftriaxone Sodium (Rocephin) 1 gm Q24H IVP Last administered on 12/21/17 15:55 ; Start 12/20/17 at 16:00; Stop 12/22/17 at 12:32; Status DC Sodium Chloride (Normal Saline Flush) 10 ml BID IV Last administered on at 10:05; Start 12/19/17 at 21:00 Sodium Chloride (Normal Saline Flush) 10 ml PRN DAILY PRN IV SEE COMMENTS Last administered on 12/22/17 17:12; Start 12/19/17 at 19:45 Ceftriaxone Sodium (Rocephin) 1 gm Q24H IVP Last administered on 12/22/17 17:12 ; Start 12/22/17 at 16:00; Stop 12/26/17 at 18:00 Active Scripts Active Reported Ceftriaxone (Ceftriaxone Sodium) 1 Gm Vial 1 Gm IM/IV DAILY16 Levothyroxine Sodium 50 Mcg Tablet 50 Mcg PO DAILYAC Depakote Sprinkle (Divalproex Sodium) 125 Mg Cap.sprink 750 Mg PO QHS Trazodone Hcl 50 Mg Tablet 50 Mg PO PRN QHS PRN Analgesic [place] (Methyl Salicylate/Menthol) 28 Gm Oint...g. 1 Radha TP PRN QID PRN Mag-Al Plus Xs Suspension (Mag Hydrox/Al Hydrox/Simeth) 30 Ml Oral.susp 15 Ml PO PRN AFTMEALHC PRN Culturelle (Lactobacillus Rhamnosus Gg) 1 Each Capsule 1 Cap PO BID Vimpat (Lacosamide) 200 Mg Tablet 200 Mg PO BIDAFTMEAL Cymbalta (Duloxetine Hcl) 60 Mg Capsule.dr 60 Mg PO DAILY Divalproex Sodium 500 Mg Tablet.dr 500 Mg PO DAILY Oyster Shell Calcium (Calcium Carbonate) 500 Mg Tablet 1 Tab PO BIDWMEALS Miralax (Polyethylene Glycol 3350) 17 Gm Powd.pack 17 Gm PO PRN DAILY PRN Milk Of Magnesia (Magnesium Hydroxide) 2,400 Mg/10 Ml Oral.susp 2,400 Mg PO PRN QHS PRN Atorvastatin Calcium 10 Mg Tablet 5 Mg PO QHS Seroquel (Quetiapine Fumarate) 25 Mg Tablet 12.5 Mg PO [id number] Pantoprazole Sodium 40 Mg Tablet.dr 40 Mg PO BIDBFRMEAL Vitamin D3 (Cholecalciferol (Vitamin D3)) 1,000 Unit Tablet 1,000 Unit PO DAILY Phenobarbital 64.8 Mg Tablet 64.8 Mg PO HS Magnesium Oxide 400 Mg Tablet 400 Mg PO TID Tylenol (Acetaminophen) 325 Mg Tablet 650 Mg PO PRN Q6HRS PRN Tramadol Hcl (Tramadol HCl) 50 Mg Tablet 50 Mg PO PRN Q6HRS PRN Senna-S Tablet (Sennosides/Docusate Sodium) 1 Each Tablet 1 Tab PO PRN BID PRN Keppra (Levetiracetam) 250 Mg Tablet 750 Mg PO BIDAFTMEAL Ferrous Sulfate 325 Mg Tablet 325 Mg PO BIDAFTMEAL Bisacodyl 10 Mg Supp.rect 10 Mg RC PRN DAILY PRN Felbamate 400 Mg Tablet 800 Mg PO TID I have reviewed the current psychotropics carefully including drug interactions. Risk benefit ratio favors no change other than as noted in my dictated progress note. Diagnosis: Problems: (1) Functional diarrhea (2) urinary tract infection (3) Left hip arthroplasty (4) Severe major depression with psychotic features (5) Adjustment disorder with depressed mood (6) Bipolar affective, mixed (7) Impulse control disorder (8) Dementia, vascular, with delusions (9) Dementia, vascular, with depression HARVEY QUIJANO MD Dec 22, 2017 20:58
--- NOTE | 2017-12-22 23:02 | NUR ---
Nursing Note. Pt compliant and cooperative with meds and cares. Up in w/c in the dayroom. No behaviors this pm.
--- NOTE | 2017-12-22 23:43 | PN ---
DATE: 12/20/2017 This is a late entry, 12/20/2017, covers the elements not covered in my initial note. SUBJECTIVE: I met with the patient in the evening. The patient slept 5-1/2 hours the previous night. She has been calm, compliant, somewhat withdrawn, finished her IV Rocephin. REVIEW OF SYSTEMS: Ambulation impaired, in wheelchair. No CV, , pulmonary, eye, ENT system symptoms on review. MENTAL STATUS EXAM: Oriented to herself and situation. Speech moderate latency, low in rate and rhythm, low in volume. Abstraction fair, computation impaired, language function intact, attention span short. Mood and affect withdrawn. No suicidal or homicidal ideation. LABORATORY DATA: Reviewed. IMPRESSION: Bipolar 1 disorder, mixed with psychotic features; cognitive disorder, unspecified; status post urinary tract infection. PLAN: Continue psychotropics from initial note. She has finished the Rocephin. Maintain Depakote 500 mg before noon, 750 mg at bedtime, Seroquel 12.5 mg four times a day, Cymbalta 60 mg a day. She is also on phenobarbital and trazodone as needed. MAN Luis QUIJANO MD DR: LOYD/eboni JOB#: [id number] / [id number]
[2017-12-23] MEDS: LEVOTHYROXINE 50 MCG TABLET PO SCH (06:24)
[2017-12-23 06:34] VITALS: BP 104/70
[2017-12-23] MEDS: LACTOBACILLUS RHAMNOSUS GG 1 CAPSULE. PO SCH ×2 (07:15→20:48)
[2017-12-23] MEDS: DIVALPROEX 125 MG CAP.SPRINK PO SCH ×2 (07:15→20:51)
[2017-12-23] MEDS: CALCIUM CARBONATE 500 MG TABLET PO SCH ×2 (07:15→16:58)
[2017-12-23] MEDS: DULoxetine HCL 60 MG CAPSULE.DR PO SCH (07:15)
[2017-12-23] MEDS: PANTOPRAZOLE 40 MG TABLET. PO SCH ×2 (07:15→16:58)
[2017-12-23] MEDS: levETIRAcetam 250 MG TABLET PO SCH ×2 (07:16→17:01)
[2017-12-23] MEDS: QUEtiapine 25 MG TABLET. PO SCH ×4 (07:16→20:48)
[2017-12-23] MEDS: FERROUS SULFATE 325 MG TABLET. PO SCH ×2 (07:18→17:01)
[2017-12-23] MEDS: LACOSAMIDE 50 MG TABLET PO SCH ×2 (07:18→17:02)
[2017-12-23] MEDS: CHOLECALCIFEROL (VITAMIN D3) 1,000 UNIT TABLET PO SCH (07:18)
[2017-12-23] MEDS: MAGNESIUM OXIDE 400 MG TABLET PO SCH ×3 (07:18→20:48)
[2017-12-23] MEDS: FELBAMATE 400 MG TABLET PO SCH ×3 (07:20→20:50)
--- NOTE | 2017-12-23 11:20 | NUR ---
Nursing Note Patient has been appropriate, calm and cooperative. Compliant with medications and assessment, still is c/o a little soreness in her left hand, continues to be swollen.Patient is up in dayroom, participating in activities. No behaviors observed thus far.
[2017-12-23] MEDS: 0.9 % SODIUM CHLORIDE 10 ML DISP.SYRIN. IV SCH ×2 (11:26→21:00)
--- NOTE | 2017-12-23 15:00 | NUR ---
ACTIVITY THERAPY ASSESSMENT Completed based on observation and interview. Pt. was sleeping in her wheelchair as she often does but awoke and was agreeable to speak with [employer]. When asked if Pt. had been here before, Pt. said yes she has. Pt. is slower to respond but will will enough time to process. She keeps to herself but is around group most of the time. Pt. appears to need options provided for her and encouragement to participate. She will engage with prompting and more 1:1 attention. Pt. has quiet speech and did not make complete sense when she spoke. She was a little confused, when asked about things she enjoyed doing for fun, Pt. stated "a man did something to my face" and "looking at her trying to figure out what she's doing." At one point, Pt. stared off with a grimace on her face. Initial goal aimed to increase stimulation and socialization: Pt. will participate in at least one group per day.
[2017-12-23 15:56] VITALS: BP 99/69
[2017-12-23] MEDS: cefTRIAXone IV Push 1 GM VIAL. IVP SCH (16:00)
--- NOTE | 2017-12-23 20:00 | NUR ---
Behavior Intervention Response and Plan: BIRP Note: Behavior: Assumed Care of patient, patient located in Day Room at shift change. Patient exhibited the following behavior Calm, Cooperative, Drowsy. Brief assessment on rounds of vital signs, medication needs, lab studies, and pain. Treatment plan problems . Intervention: Patient assessed and the following interventions initiated safety checks 15 Minute Checks Cognitive Assessment , Medications , Oral Hydration. Response: After interactions and interventions patient responded in the following manner, Calm , Compliant ,Drowsy. Continue to assess behaviors and condition will continue to monitor throughout the shift as needed. Patient educated on ADL's, and hand hygiene. Plan: Continue to monitor Master Treatment Plan for patient's progress toward short term goals of Decreased Agitation, Decreased Anxiety, [employer] goals to return to previous living setting vs placement. Continue to assess patient for changes in above assessment. Monitor for medication needs, pain, and safety concerns. Hourly rounding performed to ensure safe environment.
[2017-12-23] MEDS: ATORVASTATIN CALCIUM 10 MG TABLET. PO SCH (20:49)
[2017-12-23] MEDS: PHENobarbital 32.4 MG TABLET. PO SCH (20:50)
--- NOTE | 2017-12-23 20:57 | PDOC ---
Exam Note: David Note: Please also refer to the separate dictated note~for this date of service dictated separately.~Patient seen individually. Discussed the patient with Nursing staff reviewed the chart.~Reviewed interim history and current functioning. Reviewed vital signs,~Labs/ Radiology~and current medications noted below. Continue current treatment with the changes noted in the dictated addendum note Assessment: Vital Signs: Vital Signs Date Time Temp Pulse Resp B/P (MAP) Pulse Ox O2 Delivery O2 Flow Rate FiO2 12/23/17 15:56 97.3 75 17 99/69 (79) 100 Room Air I&O Intake and Output 12/23/17 07:00 Intake Total 780 ml Balance 780 ml Intake Oral 780 ml # Voids 1 # Bowel Movements 1 Current Medications: Meds: Current Medications Acetaminophen (Tylenol) 650 mg PRN Q6HRS PRN PO PAIN / TEMP; Start 12/19/17 at 18:15 Multi-Ingredient Ointment (Analgesic [place]) 1 radha PRN QID PRN TP MUSCLE PAIN; Start 12/19/17 at 18:15 Al Hydroxide/Mg Hydroxide (Mylanta Plus Xs) 15 ml PRN AFTMEALHC PRN PO DYSPEPSIA; Start 12/19/17 at 18:15 Magnesium Hydroxide (Milk Of Magnesia) 2,400 mg PRN QHS PRN PO CONSTIPATION Last administered on 12/20/17at 19:40; Start 12/19/17 at 18:15 Acetaminophen (Tylenol) 650 mg PRN Q6HRS PRN PO PAIN / TEMP; Start 12/19/17 at 18:15; Status UNV Calcium Carbonate/ Glycine (Oscal) 500 mg BIDWMEALS PO Last administered on 01/30at 16:58; Start 12/20/17 at 08:00 Ceftriaxone Sodium (Rocephin) 1 gm DAILY16 IV ; Start 12/20/17 at 16:00; Status UNV Vitamin D (Vitamin D3) 1,000 unit DAILY PO Last administered on 12/23/17at 07:18 ; Start 12/20/17 at 09:00 Felbamate (Felbatol) 800 mg TID PO Last administered on 12/23/17at 20:50; Start 12/19/17 at 21:00 Ferrous Sulfate (Feosol) 325 mg BIDAFTMEAL PO Last administered on 9/10/18at 17 :01; Start 12/20/17 at 09:00 Al Hydroxide/Mg Hydroxide (Mylanta Plus Xs) 15 ml PRN AFTMEALHC PRN PO DYSPEPSIA; Start 12/19/17 at 18:15; Status UNV Multi-Ingredient Ointment (Analgesic [place]) 1 radha PRN QID PRN TP MUSCLE PAIN; Start 12/19/17 at 18:15; Status UNV Senna/Docusate Sodium (Senna Plus) 1 tab PRN BID PRN PO CONSTIPATION; Start 12/19/17 at 18:15 Tramadol HCl (Ultram) 50 mg PRN Q6HRS PRN PO PAIN; Start 12/19/17 at 18:15 Atorvastatin Calcium (Lipitor) 5 mg QHS PO Last administered on 12/23/17 20:49 ; Start 12/19/17 at 21:00 Bisacodyl (Dulcolax Supp) 10 mg PRN DAILY PRN [place] CONSTIPATION; Start 12/19/17 at 18:45 Divalproex Sodium (Depakote Sprinkles) 500 mg DAILY PO Last administered on 01/30at 07:15; Start 12/20/17 at 09:00 Divalproex Sodium (Depakote Sprinkles) 750 mg QHS PO Last administered on 20:51; Start 12/19/17 at 21:00 Duloxetine HCl (Cymbalta) 60 mg DAILY PO Last administered on 12/23/17 07:15; Start 12/20/17 at 09:00 Lacosamide (Vimpat) 200 mg BIDAFTMEAL PO Last administered on 12/23/17 17:02; Start 12/19/17 at 21:00 Lactobacillus Rhamnosus (Culturelle) 1 cap BID PO Last administered on 20:48; Start 12/19/17 at 21:00 Levetiracetam (Keppra) 750 mg BIDAFTMEAL PO Last administered on 12/23/17 17: 01; Start 12/20/17 at 09:00 Levothyroxine Sodium (Synthroid) 50 mcg DAILY06 PO Last administered on 06:24; Start 12/20/17 at 06:00 Non-Formulary Medication (Magnesium Hydroxide (Milk Of Magnesia)) 2,400 mg PRN QHS PRN PO CONSTIPATION; Start 12/19/17 at 18:15; Status UNV Magnesium Oxide (Magnesium Oxide) 400 mg TID PO Last administered on 12/23/17 20:48; Start 12/19/17 at 21:00 Pantoprazole Sodium (Protonix) 40 mg BIDBFRMEAL PO Last administered on 16:58; Start 12/20/17 at 07:30 Phenobarbital (Luminal) 64.8 mg QHS PO Last administered on 12/23/17 20:50; Start 12/19/17 at 21:00 Polyethylene Glycol (miraLAX) 17 gm PRN DAILY PRN PO CONSTIPATION; Start at 09:00 Quetiapine Fumarate (SEROquel) 12.5 mg QID PO Last administered on 12/23/17 20 :48; Start 12/19/17 at 21:00 Trazodone HCl (Desyrel) 50 mg PRN QHS PRN PO INSOMNIA, MAY REPEAT X1 Last administered on 12/20/17 23:32; Start 12/19/17 at 19:00 Ceftriaxone Sodium (Rocephin) 1 gm Q24H IVP Last administered on 12/21/17 15:55 ; Start 12/20/17 at 16:00; Stop 12/22/17 at 12:32; Status DC Sodium Chloride (Normal Saline Flush) 10 ml BID IV Last administered on 11:26; Start 12/19/17 at 21:00 Sodium Chloride (Normal Saline Flush) 10 ml PRN DAILY PRN IV SEE COMMENTS Last administered on 12/22/17at 17:12; Start 12/19/17 at 19:45 Ceftriaxone Sodium (Rocephin) 1 gm Q24H IVP Last administered on 12/23/17 16: 00; Start 12/22/17 at 16:00; Stop 12/26/17 at 18:00 Active Scripts Active Reported Ceftriaxone (Ceftriaxone Sodium) 1 Gm Vial 1 Gm IM/IV DAILY16 Levothyroxine Sodium 50 Mcg Tablet 50 Mcg PO DAILYAC Depakote Sprinkle (Divalproex Sodium) 125 Mg Cap.sprink 750 Mg PO QHS Trazodone Hcl 50 Mg Tablet 50 Mg PO PRN QHS PRN Analgesic [place] (Methyl Salicylate/Menthol) 28 Gm Oint...g. 1 Radha TP PRN QID PRN Mag-Al Plus Xs Suspension (Mag Hydrox/Al Hydrox/Simeth) 30 Ml Oral.susp 15 Ml PO PRN AFTMEALHC PRN Culturelle (Lactobacillus Rhamnosus Gg) 1 Each Capsule 1 Cap PO BID Vimpat (Lacosamide) 200 Mg Tablet 200 Mg PO BIDAFTMEAL Cymbalta (Duloxetine Hcl) 60 Mg Capsule.dr 60 Mg PO DAILY Divalproex Sodium 500 Mg Tablet.dr 500 Mg PO DAILY Oyster Shell Calcium (Calcium Carbonate) 500 Mg Tablet 1 Tab PO BIDWMEALS Miralax (Polyethylene Glycol 3350) 17 Gm Powd.pack 17 Gm PO PRN DAILY PRN Milk Of Magnesia (Magnesium Hydroxide) 2,400 Mg/10 Ml Oral.susp 2,400 Mg PO PRN QHS PRN Atorvastatin Calcium 10 Mg Tablet 5 Mg PO QHS Seroquel (Quetiapine Fumarate) 25 Mg Tablet 12.5 Mg PO [id number] Pantoprazole Sodium 40 Mg Tablet.dr 40 Mg PO BIDBFRMEAL Vitamin D3 (Cholecalciferol (Vitamin D3)) 1,000 Unit Tablet 1,000 Unit PO DAILY Phenobarbital 64.8 Mg Tablet 64.8 Mg PO HS Magnesium Oxide 400 Mg Tablet 400 Mg PO TID Tylenol (Acetaminophen) 325 Mg Tablet 650 Mg PO PRN Q6HRS PRN Tramadol Hcl (Tramadol HCl) 50 Mg Tablet 50 Mg PO PRN Q6HRS PRN Senna-S Tablet (Sennosides/Docusate Sodium) 1 Each Tablet 1 Tab PO PRN BID PRN Keppra (Levetiracetam) 250 Mg Tablet 750 Mg PO BIDAFTMEAL Ferrous Sulfate 325 Mg Tablet 325 Mg PO BIDAFTMEAL Bisacodyl 10 Mg Supp.rect 10 Mg RC PRN DAILY PRN Felbamate 400 Mg Tablet 800 Mg PO TID I have reviewed the current psychotropics carefully including drug interactions. Risk benefit ratio favors no change other than as noted in my dictated progress note. Diagnosis: Problems: (1) Functional diarrhea (2) urinary tract infection (3) Left hip arthroplasty (4) Severe major depression with psychotic features (5) Adjustment disorder with depressed mood (6) Bipolar affective, mixed (7) Impulse control disorder (8) Dementia, vascular, with delusions (9) Dementia, vascular, with depression HARVEY QUIJANO MD Dec 23, 2017 20:57
--- NOTE | 2017-12-23 21:56 | PN ---
DATE: 12/21/2017 This is a late entry for 12/21/2017 covers elements not covered in my initial note. SUBJECTIVE: I met with the patient in the evening. Overall, the patient has been pleasant, cooperative, not aggressive, compliant with medications. REVIEW OF SYSTEMS: Ambulation impaired, in wheelchair. No CV, , pulmonary, eye system symptoms on review. MENTAL STATUS EXAM: Oriented to herself and situation. Speech has some latency, low in volume, coherent, abstraction fair, computation impaired, language function intact. Mood and affect somewhat withdrawn. No active suicidal or homicidal ideation. LABORATORY DATA: Reviewed. IMPRESSION: Unchanged from initial note bipolar 1 disorder, mixed with psychotic features; cognitive disorder, unspecified; urinary tract infection. PLAN: Continue psychotropics from initial note. Adjust as clinically indicated. MAN Luis QUIJANO MD DR: LOYD/eboni JOB#: [id number] / [id number]
--- NOTE | 2017-12-23 22:56 | PN ---
DATE: 12/22/2017 This is a late entry, 12/22/2017, covers the elements not covered in my initial note. SUBJECTIVE: I met with the patient in the evening. The patient slept 7-1/4 hours previous night. Overall, the patient is withdrawn, not aggressive. REVIEW OF SYSTEMS: No CV, , pulmonary, eye system symptoms on review. Gait unsteady, in wheelchair. MENTAL STATUS EXAM: Oriented to herself and situation. Speech moderate latency, low in rate and rhythm, low in volume, often response is monosyllabic. Abstraction fair, computation impaired, language function intact. Attention span short. No active suicidal or homicidal ideation. Mood and affect withdrawn. LABORATORY DATA: Reviewed. IMPRESSION: Unchanged from initial note. PLAN: No change from initial note. MAN Luis QUIJANO MD DR: LOYD/eboni JOB#: [id number] / [id number]
[2017-12-24] MEDS: LEVOTHYROXINE 50 MCG TABLET PO SCH (06:11)
[2017-12-24 06:34] VITALS: BP 106/67
[2017-12-24] MEDS: traMADol 50 MG TABLET PO PRN (07:43)
[2017-12-24] MEDS: CHOLECALCIFEROL (VITAMIN D3) 1,000 UNIT TABLET PO SCH (07:44)
[2017-12-24] MEDS: QUEtiapine 25 MG TABLET. PO SCH ×4 (07:44→19:27)
[2017-12-24] MEDS: MAGNESIUM OXIDE 400 MG TABLET PO SCH ×3 (07:44→19:25)
[2017-12-24] MEDS: 0.9 % SODIUM CHLORIDE 10 ML DISP.SYRIN. IV SCH ×2 (07:46→19:28)
[2017-12-24] MEDS: levETIRAcetam 250 MG TABLET PO SCH ×2 (07:46→17:37)
[2017-12-24] MEDS: DIVALPROEX 125 MG CAP.SPRINK PO SCH ×2 (07:46→19:28)
[2017-12-24] MEDS: LACOSAMIDE 50 MG TABLET PO SCH ×2 (07:47→17:37)
[2017-12-24] MEDS: FERROUS SULFATE 325 MG TABLET. PO SCH ×2 (07:47→17:37)
[2017-12-24] MEDS: PANTOPRAZOLE 40 MG TABLET. PO SCH ×2 (07:47→17:38)
[2017-12-24] MEDS: LACTOBACILLUS RHAMNOSUS GG 1 CAPSULE. PO SCH ×2 (07:47→19:24)
[2017-12-24] MEDS: DULoxetine HCL 60 MG CAPSULE.DR PO SCH (07:47)
[2017-12-24] MEDS: CALCIUM CARBONATE 500 MG TABLET PO SCH ×2 (07:47→17:38)
[2017-12-24] MEDS: FELBAMATE 400 MG TABLET PO SCH ×3 (07:49→19:27)
--- NOTE | 2017-12-24 07:54 | NUR ---
patient reports pain in left hand rated 10/10. Patient has known fracture of 4th metacarpal. Given PRN ultram for pain and will continue to monitor.
[2017-12-24 16:23] VITALS: BP 106/64
[2017-12-24] MEDS: cefTRIAXone IV Push 1 GM VIAL. IVP SCH (17:38)
--- NOTE | 2017-12-24 18:11 | NUR ---
Patients IV has started to leak at the insertion site. Removed IV from left hand, no bleeding at site, hand feels cold to the touch and patient states it is painful. Applied gauze with tape.
[2017-12-24] MEDS: PHENobarbital 32.4 MG TABLET. PO SCH (19:25)
[2017-12-24] MEDS: ATORVASTATIN CALCIUM 10 MG TABLET. PO SCH (19:25)
--- NOTE | 2017-12-24 20:00 | NUR ---
Behavior Intervention Response and Plan: BIRP Note: Behavior: Assumed Care of patient, patient located in Day Room at shift change. Patient exhibited the following behavior Calm, Drowsy, Compliant. Brief assessment on rounds of vital signs, medication needs, lab studies, and pain. Treatment plan problems . Intervention: Patient assessed and the following interventions initiated safety checks 15 Minute Checks Cognitive Assessment , Head to toe Assessment , Medications. Response: After interactions and interventions patient responded in the following manner, Interactive , Calm ,Compliant. Continue to assess behaviors and condition will continue to monitor throughout the shift as needed. Patient educated on ADL's, and hand hygiene. Plan: Continue to monitor Master Treatment Plan for patient's progress toward short term goals of Decreased Agitation, Decreased Anxiety, fdc goals to return to previous living setting vs placement. Continue to assess patient for changes in above assessment. Monitor for medication needs, pain, and safety concerns. Hourly rounding performed to ensure safe environment.
--- NOTE | 2017-12-24 20:55 | PDOC ---
Exam Note: David Note: Please also refer to the separate dictated note~for this date of service dictated separately.~Patient seen individually. Discussed the patient with Nursing staff reviewed the chart.~Reviewed interim history and current functioning. Reviewed vital signs,~Labs/ Radiology~and current medications noted below. Continue current treatment with the changes noted in the dictated addendum note Assessment: Vital Signs: Vital Signs Date Time Temp Pulse Resp B/P (MAP) Pulse Ox O2 Delivery O2 Flow Rate FiO2 12/24/17 16:23 98.2 70 18 106/64 (78) 100 12/24/17 07:43 Room Air I&O Intake and Output 12/24/17 07:00 Intake Total 1080 ml Balance 1080 ml Intake Oral 1080 ml # Voids 2 Current Medications: Meds: Current Medications Acetaminophen (Tylenol) 650 mg PRN Q6HRS PRN PO PAIN / TEMP; Start 12/19/17 at 18:15 Multi-Ingredient Ointment (Analgesic [place]) 1 radha PRN QID PRN TP MUSCLE PAIN; Start 12/19/17 at 18:15 Al Hydroxide/Mg Hydroxide (Mylanta Plus Xs) 15 ml PRN AFTMEALHC PRN PO DYSPEPSIA; Start 12/19/17 at 18:15 Magnesium Hydroxide (Milk Of Magnesia) 2,400 mg PRN QHS PRN PO CONSTIPATION Last administered on 12/20/17at 19:40; Start 12/19/17 at 18:15 Acetaminophen (Tylenol) 650 mg PRN Q6HRS PRN PO PAIN / TEMP; Start 12/19/17 at 18:15; Status UNV Calcium Carbonate/ Glycine (Oscal) 500 mg BIDWMEALS PO Last administered on 03/02at 17:38; Start 12/20/17 at 08:00 Ceftriaxone Sodium (Rocephin) 1 gm DAILY16 IV ; Start 12/20/17 at 16:00; Status UNV Vitamin D (Vitamin D3) 1,000 unit DAILY PO Last administered on 12/24/17at 07:44 ; Start 12/20/17 at 09:00 Felbamate (Felbatol) 800 mg TID PO Last administered on 12/24/17 19:27; Start 12/19/17 at 21:00 Ferrous Sulfate (Feosol) 325 mg BIDAFTMEAL PO Last administered on 12/24/17 17 :37; Start 12/20/17 at 09:00 Al Hydroxide/Mg Hydroxide (Mylanta Plus Xs) 15 ml PRN AFTMEALHC PRN PO DYSPEPSIA; Start 12/19/17 at 18:15; Status UNV Multi-Ingredient Ointment (Analgesic [place]) 1 radha PRN QID PRN TP MUSCLE PAIN; Start 12/19/17 at 18:15; Status UNV Senna/Docusate Sodium (Senna Plus) 1 tab PRN BID PRN PO CONSTIPATION; Start 12/19/17 at 18:15 Tramadol HCl (Ultram) 50 mg PRN Q6HRS PRN PO PAIN Last administered on 07:43; Start 12/19/17 at 18:15 Atorvastatin Calcium (Lipitor) 5 mg QHS PO Last administered on 12/24/17 19:25 ; Start 12/19/17 at 21:00 Bisacodyl (Dulcolax Supp) 10 mg PRN DAILY PRN [place] CONSTIPATION; Start 12/19/17 at 18:45 Divalproex Sodium (Depakote Sprinkles) 500 mg DAILY PO Last administered on 07:46; Start 12/20/17 at 09:00 Divalproex Sodium (Depakote Sprinkles) 750 mg QHS PO Last administered on 19:28; Start 12/19/17 at 21:00 Duloxetine HCl (Cymbalta) 60 mg DAILY PO Last administered on 12/24/17 07:47; Start 12/20/17 at 09:00 Lacosamide (Vimpat) 200 mg BIDAFTMEAL PO Last administered on 12/24/17 17:37; Start 12/19/17 at 21:00 Lactobacillus Rhamnosus (Culturelle) 1 cap BID PO Last administered on 19:24; Start 12/19/17 at 21:00 Levetiracetam (Keppra) 750 mg BIDAFTMEAL PO Last administered on 12/24/17 17: 37; Start 12/20/17 at 09:00 Levothyroxine Sodium (Synthroid) 50 mcg DAILY06 PO Last administered on 06:11; Start 12/20/17 at 06:00 Non-Formulary Medication (Magnesium Hydroxide (Milk Of Magnesia)) 2,400 mg PRN QHS PRN PO CONSTIPATION; Start 12/19/17 at 18:15; Status UNV Magnesium Oxide (Magnesium Oxide) 400 mg TID PO Last administered on 12/24/17 19:25; Start 12/19/17 at 21:00 Pantoprazole Sodium (Protonix) 40 mg BIDBFRMEAL PO Last administered on 17:38; Start 12/20/17 at 07:30 Phenobarbital (Luminal) 64.8 mg QHS PO Last administered on 12/24/17 19:25; Start 12/19/17 at 21:00 Polyethylene Glycol (miraLAX) 17 gm PRN DAILY PRN PO CONSTIPATION; Start at 09:00 Quetiapine Fumarate (SEROquel) 12.5 mg QID PO Last administered on 12/24/17 19 :27; Start 12/19/17 at 21:00 Trazodone HCl (Desyrel) 50 mg PRN QHS PRN PO INSOMNIA, MAY REPEAT X1 Last administered on 12/20/17 23:32; Start 12/19/17 at 19:00 Ceftriaxone Sodium (Rocephin) 1 gm Q24H IVP Last administered on 12/21/17 15:55 ; Start 12/20/17 at 16:00; Stop 12/22/17 at 12:32; Status DC Sodium Chloride (Normal Saline Flush) 10 ml BID IV Last administered on at 07:46; Start 12/19/17 at 21:00 Sodium Chloride (Normal Saline Flush) 10 ml PRN DAILY PRN IV SEE COMMENTS Last administered on 12/22/17 17:12; Start 12/19/17 at 19:45 Ceftriaxone Sodium (Rocephin) 1 gm Q24H IVP Last administered on 12/24/17 17: 38; Start 12/22/17 at 16:00; Stop 12/26/17 at 18:00 Active Scripts Active Reported Ceftriaxone (Ceftriaxone Sodium) 1 Gm Vial 1 Gm IM/IV DAILY16 Levothyroxine Sodium 50 Mcg Tablet 50 Mcg PO DAILYAC Depakote Sprinkle (Divalproex Sodium) 125 Mg Cap.sprink 750 Mg PO QHS Trazodone Hcl 50 Mg Tablet 50 Mg PO PRN QHS PRN Analgesic [place] (Methyl Salicylate/Menthol) 28 Gm Oint...g. 1 Radha TP PRN QID PRN Mag-Al Plus Xs Suspension (Mag Hydrox/Al Hydrox/Simeth) 30 Ml Oral.susp 15 Ml PO PRN AFTMEALHC PRN Culturelle (Lactobacillus Rhamnosus Gg) 1 Each Capsule 1 Cap PO BID Vimpat (Lacosamide) 200 Mg Tablet 200 Mg PO BIDAFTMEAL Cymbalta (Duloxetine Hcl) 60 Mg Capsule.dr 60 Mg PO DAILY Divalproex Sodium 500 Mg Tablet.dr 500 Mg PO DAILY Oyster Shell Calcium (Calcium Carbonate) 500 Mg Tablet 1 Tab PO BIDWMEALS Miralax (Polyethylene Glycol 3350) 17 Gm Powd.pack 17 Gm PO PRN DAILY PRN Milk Of Magnesia (Magnesium Hydroxide) 2,400 Mg/10 Ml Oral.susp 2,400 Mg PO PRN QHS PRN Atorvastatin Calcium 10 Mg Tablet 5 Mg PO QHS Seroquel (Quetiapine Fumarate) 25 Mg Tablet 12.5 Mg PO [id number] Pantoprazole Sodium 40 Mg Tablet.dr 40 Mg PO BIDBFRMEAL Vitamin D3 (Cholecalciferol (Vitamin D3)) 1,000 Unit Tablet 1,000 Unit PO DAILY Phenobarbital 64.8 Mg Tablet 64.8 Mg PO HS Magnesium Oxide 400 Mg Tablet 400 Mg PO TID Tylenol (Acetaminophen) 325 Mg Tablet 650 Mg PO PRN Q6HRS PRN Tramadol Hcl (Tramadol HCl) 50 Mg Tablet 50 Mg PO PRN Q6HRS PRN Senna-S Tablet (Sennosides/Docusate Sodium) 1 Each Tablet 1 Tab PO PRN BID PRN Keppra (Levetiracetam) 250 Mg Tablet 750 Mg PO BIDAFTMEAL Ferrous Sulfate 325 Mg Tablet 325 Mg PO BIDAFTMEAL Bisacodyl 10 Mg Supp.rect 10 Mg RC PRN DAILY PRN Felbamate 400 Mg Tablet 800 Mg PO TID I have reviewed the current psychotropics carefully including drug interactions. Risk benefit ratio favors no change other than as noted in my dictated progress note. Diagnosis: Problems: (1) Functional diarrhea (2) urinary tract infection (3) Left hip arthroplasty (4) Severe major depression with psychotic features (5) Adjustment disorder with depressed mood (6) Bipolar affective, mixed (7) Impulse control disorder (8) Dementia, vascular, with delusions (9) Dementia, vascular, with depression HARVEY QUIJANO MD Dec 24, 2017 20:55
--- NOTE | 2017-12-24 21:48 | PN ---
DATE: 12/23/2017 This late entry, 12/23/2017, covers elements not covered in my initial note. SUBJECTIVE: I met with the patient in the evening. The patient slept 8 hours previous night, has been calm, dozes off and on during the day, but not aggressive. Much of her agitation was probably secondary to UTI. REVIEW OF SYSTEMS: Ambulation impaired, in wheelchair. No CV, , pulmonary, eye, ENT system symptoms on review. MENTAL STATUS EXAM: Oriented to herself and situation. Speech, moderate latency, low in rate and rhythm, low in volume. Abstraction fair, computation impaired, language function intact, attention span short. Mood and affect somewhat withdrawn, but less aggressive, less labile. LABORATORY DATA: Reviewed. IMPRESSION: Bipolar I disorder, mixed, status post urinary tract infection; cognitive disorder, unspecified. PLAN: Continue psychotropics from initial note, may need to adjust Depakote further if agitation resurfaces and may repeat the level to ensure it is therapeutic. HARVEY QUIJANO MD DR: LOYD/eboni JOB#: [id number] / [id number]
[2017-12-25] MEDS: LEVOTHYROXINE 50 MCG TABLET PO SCH (05:25)
[2017-12-25 05:48] VITALS: BP 96/57
[2017-12-25] MEDS: levETIRAcetam 250 MG TABLET PO SCH ×2 (07:54→17:31)
[2017-12-25] MEDS: PANTOPRAZOLE 40 MG TABLET. PO SCH ×2 (07:54→17:31)
[2017-12-25] MEDS: MAGNESIUM OXIDE 400 MG TABLET PO SCH ×3 (07:54→20:04)
[2017-12-25] MEDS: LACOSAMIDE 50 MG TABLET PO SCH ×2 (07:54→17:30)
[2017-12-25] MEDS: CALCIUM CARBONATE 500 MG TABLET PO SCH ×2 (07:54→17:30)
[2017-12-25] MEDS: DIVALPROEX 125 MG CAP.SPRINK PO SCH ×2 (07:54→20:06)
[2017-12-25] MEDS: FERROUS SULFATE 325 MG TABLET. PO SCH ×2 (07:55→17:30)
[2017-12-25] MEDS: QUEtiapine 25 MG TABLET. PO SCH ×4 (07:55→20:05)
[2017-12-25] MEDS: 0.9 % SODIUM CHLORIDE 10 ML DISP.SYRIN. IV SCH ×2 (07:55→21:00)
[2017-12-25] MEDS: DULoxetine HCL 60 MG CAPSULE.DR PO SCH (07:55)
[2017-12-25] MEDS: CHOLECALCIFEROL (VITAMIN D3) 1,000 UNIT TABLET PO SCH (07:55)
[2017-12-25] MEDS: LACTOBACILLUS RHAMNOSUS GG 1 CAPSULE. PO SCH ×2 (07:55→20:16)
[2017-12-25] MEDS: FELBAMATE 400 MG TABLET PO SCH ×3 (07:57→20:05)
--- NOTE | 2017-12-25 08:45 | NUR ---
Behavior Intervention Response and Plan: BIRP Note: Behavior: Assumed Care of patient, patient located in Day Room at shift change. Patient exhibited the following behavior Wandering, Restless, Disorganized. Brief assessment on rounds of vital signs, medication needs, lab studies, and pain. Treatment plan problems 1 & 2. Intervention: Patient assessed and the following interventions initiated safety checks 15 Minute Checks Cognitive Assessment , Head to toe Assessment , Medications. Response: After interactions and interventions patient responded in the following manner, Calm , Compliant ,Disorganized. Continue to assess behaviors and condition will continue to monitor throughout the shift as needed. Patient educated on ADL's, and hand hygiene. Plan: Continue to monitor Master Treatment Plan for patient's progress toward short term goals of Medication Compliance, No harm To self/ others, jail goals to return to previous living setting vs placement. Continue to assess patient for changes in above assessment. Monitor for medication needs, pain, and safety concerns. Hourly rounding performed to ensure safe environment.
[2017-12-25 09:47] LABS: ALBUMIN 2.7 g/dL (3.4-5.0); ALBUMIN/GLOBULIN RATIO 0.8 (1.0-1.7); CALCIUM 8.6 mg/dL (8.5-10.1); CREATININE 0.8 mg/dL (0.6-1.0); GFR 72.2; POTASSIUM 3.7 mmol/L (3.5-5.1); TOTAL BILIRUBIN 0.2 mg/dL (0.2-1.0); TOTAL PROTEIN 6.1 g/dL (6.4-8.2)
[2017-12-25 09:54] LABS: BASO % 1 % (0-3); EOS # 0.7 x10^3/uL (0.0-0.7); EOS % 17 % (0-3); HEMATOCRIT 34.6 % (36.0-47.0); HEMOGLOBIN 11.5 g/dL (12.0-15.5); LYMPH # 0.9 x10^3/uL (1.0-4.8); LYMPH % 24 % (24-48); MEAN CORPUSCULAR HEMOGLOBIN 32 pg (25-35); MEAN CORPUSCULAR HGB CONC 33 g/dL (31-37); MEAN CORPUSCULAR VOLUME 97 fL (79-100); MONO # 0.5 x10^3/uL (0.0-1.1); MONO % 12 % (0-9); NEUT # 1.8 x10^3uL (1.8-7.7); NEUT % 46 % (31-73); PLATELET COUNT 141 x10^3/uL (140-400); RED BLOOD COUNT 3.56 x10^6/uL (3.50-5.40); RED CELL DISTRIBUTION WIDTH 15.9 % (11.5-14.5)
[2017-12-25 15:34] VITALS: BP_SYST 113
[2017-12-25] MEDS ORDERED: cefTRIAXone IM 1 GM VIAL IM ONE (16:45)
[2017-12-25] MEDS: cefTRIAXone IM 1 GM VIAL IM SCH (17:31)
[2017-12-25] MEDS: ATORVASTATIN CALCIUM 10 MG TABLET. PO SCH (20:05)
[2017-12-25] MEDS: PHENobarbital 32.4 MG TABLET. PO SCH (20:17)
--- NOTE | 2017-12-25 21:01 | PDOC ---
Exam Note: David Note: Please also refer to the separate dictated note~for this date of service dictated separately.~Patient seen individually. Discussed the patient with Nursing staff reviewed the chart.~Reviewed interim history and current functioning. Reviewed vital signs,~Labs/ Radiology~and current medications noted below. Continue current treatment with the changes noted in the dictated addendum note Assessment: Vital Signs: Vital Signs Date Time Temp Pulse Resp B/P (MAP) Pulse Ox O2 Delivery O2 Flow Rate FiO2 12/25/17 15:34 97.9 68 16 113/ 100 Room Air I&O Intake and Output 12/25/17 07:00 Intake Total 1320 ml Balance 1320 ml Intake Oral 1320 ml Labs: Laboratory Tests Test 12/25/17 09:20 White Blood Count 4.0 x10^3/uL (4.0-11.0) Red Blood Count 3.56 x10^6/uL (3.50-5.40) Hemoglobin 11.5 g/dL (12.0-15.5) L Hematocrit 34.6 % (36.0-47.0) L Mean Corpuscular Volume 97 fL (79-100) Mean Corpuscular Hemoglobin 32 pg (25-35) Mean Corpuscular Hemoglobin Concent 33 g/dL (31-37) Red Cell Distribution Width 15.9 % (11.5-14.5) H Platelet Count 141 x10^3/uL (140-400) Neutrophils (%) (Auto) 46 % (31-73) Lymphocytes (%) (Auto) 24 % (24-48) Monocytes (%) (Auto) 12 % (0-9) H Eosinophils (%) (Auto) 17 % (0-3) H Basophils (%) (Auto) 1 % (0-3) Neutrophils # (Auto) 1.8 x10^3uL (1.8-7.7) Lymphocytes # (Auto) 0.9 x10^3/uL (1.0-4.8) L Monocytes # (Auto) 0.5 x10^3/uL (0.0-1.1) Eosinophils # (Auto) 0.7 x10^3/uL (0.0-0.7) Basophils # (Auto) 0.0 x10^3/uL (0.0-0.2) Sodium Level 142 mmol/L (136-145) Potassium Level 3.7 mmol/L (3.5-5.1) Chloride Level 103 mmol/L (98-107) Carbon Dioxide Level 35 mmol/L (21-32) H Anion Gap 4 (6-14) L Blood Urea Nitrogen 21 mg/dL (7-20) H Creatinine 0.8 mg/dL (0.6-1.0) Estimated GFR (Cockcroft-Gault) 72.2 BUN/Creatinine Ratio 26 (6-20) H Glucose Level 95 mg/dL (70-99) Calcium Level 8.6 mg/dL (8.5-10.1) Total Bilirubin 0.2 mg/dL (0.2-1.0) Aspartate Amino Transferase (AST) 11 U/L (15-37) L Alanine Aminotransferase (ALT) 17 U/L (14-59) Alkaline Phosphatase 102 U/L (46-116) Total Protein 6.1 g/dL (6.4-8.2) L Albumin 2.7 g/dL (3.4-5.0) L Albumin/Globulin Ratio 0.8 (1.0-1.7) L Current Medications: Meds: Current Medications Acetaminophen (Tylenol) 650 mg PRN Q6HRS PRN PO PAIN / TEMP; Start 12/19/17 at 18:15 Multi-Ingredient Ointment (Analgesic [place]) 1 radha PRN QID PRN TP MUSCLE PAIN; Start 12/19/17 at 18:15 Al Hydroxide/Mg Hydroxide (Mylanta Plus Xs) 15 ml PRN AFTMEALHC PRN PO DYSPEPSIA; Start 12/19/17 at 18:15 Magnesium Hydroxide (Milk Of Magnesia) 2,400 mg PRN QHS PRN PO CONSTIPATION Last administered on 12/20/17at 19:40; Start 12/19/17 at 18:15 Acetaminophen (Tylenol) 650 mg PRN Q6HRS PRN PO PAIN / TEMP; Start 12/19/17 at 18:15; Status UNV Calcium Carbonate/ Glycine (Oscal) 500 mg BIDWMEALS PO Last administered on 04/01at 17:30; Start 12/20/17 at 08:00 Ceftriaxone Sodium (Rocephin) 1 gm DAILY16 IV ; Start 12/20/17 at 16:00; Status UNV Vitamin D (Vitamin D3) 1,000 unit DAILY PO Last administered on 12/25/17 07:55 ; Start 12/20/17 at 09:00 Felbamate (Felbatol) 800 mg TID PO Last administered on 12/25/17 20:05; Start 12/19/17 at 21:00 Ferrous Sulfate (Feosol) 325 mg BIDAFTMEAL PO Last administered on 12/25/17 17 :30; Start 12/20/17 at 09:00 Al Hydroxide/Mg Hydroxide (Mylanta Plus Xs) 15 ml PRN AFTMEALHC PRN PO DYSPEPSIA; Start 12/19/17 at 18:15; Status UNV Multi-Ingredient Ointment (Analgesic [place]) 1 radha PRN QID PRN TP MUSCLE PAIN; Start 12/19/17 at 18:15; Status UNV Senna/Docusate Sodium (Senna Plus) 1 tab PRN BID PRN PO CONSTIPATION; Start 12/19/17 at 18:15 Tramadol HCl (Ultram) 50 mg PRN Q6HRS PRN PO PAIN Last administered on at 07:43; Start 12/19/17 at 18:15 Atorvastatin Calcium (Lipitor) 5 mg QHS PO Last administered on 12/25/17 20:05 ; Start 12/19/17 at 21:00 Bisacodyl (Dulcolax Supp) 10 mg PRN DAILY PRN ME CONSTIPATION; Start 12/19/17 at 18:45 Divalproex Sodium (Depakote Sprinkles) 500 mg DAILY PO Last administered on 07:54; Start 12/20/17 at 09:00 Divalproex Sodium (Depakote Sprinkles) 750 mg QHS PO Last administered on 20:06; Start 12/19/17 at 21:00 Duloxetine HCl (Cymbalta) 60 mg DAILY PO Last administered on 12/25/17 07:55; Start 12/20/17 at 09:00 Lacosamide (Vimpat) 200 mg BIDAFTMEAL PO Last administered on 12/25/17 17:30; Start 12/19/17 at 21:00 Lactobacillus Rhamnosus (Culturelle) 1 cap BID PO Last administered on 20:16; Start 12/19/17 at 21:00 Levetiracetam (Keppra) 750 mg BIDAFTMEAL PO Last administered on 12/25/17 17: 31; Start 12/20/17 at 09:00 Levothyroxine Sodium (Synthroid) 50 mcg DAILY06 PO Last administered on 05:25; Start 12/20/17 at 06:00 Non-Formulary Medication (Magnesium Hydroxide (Milk Of Magnesia)) 2,400 mg PRN QHS PRN PO CONSTIPATION; Start 12/19/17 at 18:15; Status UNV Magnesium Oxide (Magnesium Oxide) 400 mg TID PO Last administered on 12/25/17 20:04; Start 12/19/17 at 21:00 Pantoprazole Sodium (Protonix) 40 mg BIDBFRMEAL PO Last administered on 17:31; Start 12/20/17 at 07:30 Phenobarbital (Luminal) 64.8 mg QHS PO Last administered on 12/25/17 20:17; Start 12/19/17 at 21:00 Polyethylene Glycol (miraLAX) 17 gm PRN DAILY PRN PO CONSTIPATION; Start at 09:00 Quetiapine Fumarate (SEROquel) 12.5 mg QID PO Last administered on 12/25/17 20 :05; Start 12/19/17 at 21:00 Trazodone HCl (Desyrel) 50 mg PRN QHS PRN PO INSOMNIA, MAY REPEAT X1 Last administered on 12/20/17 23:32; Start 12/19/17 at 19:00 Ceftriaxone Sodium (Rocephin) 1 gm Q24H IVP Last administered on 12/21/17 15:55 ; Start 12/20/17 at 16:00; Stop 12/22/17 at 12:32; Status DC Sodium Chloride (Normal Saline Flush) 10 ml BID IV Last administered on 07:46; Start 12/19/17 at 21:00 Sodium Chloride (Normal Saline Flush) 10 ml PRN DAILY PRN IV SEE COMMENTS Last administered on 12/22/17 17:12; Start 12/19/17 at 19:45 Ceftriaxone Sodium (Rocephin) 1 gm Q24H IVP Last administered on 12/24/17at 17: 38; Start 12/22/17 at 16:00; Stop 12/25/17 at 16:38; Status DC Ceftriaxone Sodium (Rocephin Im) 1 gm Q24H ONCE IM ; Start 12/25/17 at 16:45; Stop 12/25/17 at 16:45; Status DC Ceftriaxone Sodium (Rocephin Im) 1 gm Q24H IM Last administered on 12/25/17at 17 :31; Start 12/25/17 at 16:45; Stop 12/26/17 at 21:00 Active Scripts Active Reported Ceftriaxone (Ceftriaxone Sodium) 1 Gm Vial 1 Gm IM/IV DAILY16 Levothyroxine Sodium 50 Mcg Tablet 50 Mcg PO DAILYAC Depakote Sprinkle (Divalproex Sodium) 125 Mg Cap.sprink 750 Mg PO QHS Trazodone Hcl 50 Mg Tablet 50 Mg PO PRN QHS PRN Analgesic [place] (Methyl Salicylate/Menthol) 28 Gm Oint...g. 1 Radha TP PRN QID PRN Mag-Al Plus Xs Suspension (Mag Hydrox/Al Hydrox/Simeth) 30 Ml Oral.susp 15 Ml PO PRN AFTMEALHC PRN Culturelle (Lactobacillus Rhamnosus Gg) 1 Each Capsule 1 Cap PO BID Vimpat (Lacosamide) 200 Mg Tablet 200 Mg PO BIDAFTMEAL Cymbalta (Duloxetine Hcl) 60 Mg Capsule.dr 60 Mg PO DAILY Divalproex Sodium 500 Mg Tablet.dr 500 Mg PO DAILY Oyster Shell Calcium (Calcium Carbonate) 500 Mg Tablet 1 Tab PO BIDWMEALS Miralax (Polyethylene Glycol 3350) 17 Gm Powd.pack 17 Gm PO PRN DAILY PRN Milk Of Magnesia (Magnesium Hydroxide) 2,400 Mg/10 Ml Oral.susp 2,400 Mg PO PRN QHS PRN Atorvastatin Calcium 10 Mg Tablet 5 Mg PO QHS Seroquel (Quetiapine Fumarate) 25 Mg Tablet 12.5 Mg PO [id number] Pantoprazole Sodium 40 Mg Tablet.dr 40 Mg PO BIDBFRMEAL Vitamin D3 (Cholecalciferol (Vitamin D3)) 1,000 Unit Tablet 1,000 Unit PO DAILY Phenobarbital 64.8 Mg Tablet 64.8 Mg PO HS Magnesium Oxide 400 Mg Tablet 400 Mg PO TID Tylenol (Acetaminophen) 325 Mg Tablet 650 Mg PO PRN Q6HRS PRN Tramadol Hcl (Tramadol HCl) 50 Mg Tablet 50 Mg PO PRN Q6HRS PRN Senna-S Tablet (Sennosides/Docusate Sodium) 1 Each Tablet 1 Tab PO PRN BID PRN Keppra (Levetiracetam) 250 Mg Tablet 750 Mg PO BIDAFTMEAL Ferrous Sulfate 325 Mg Tablet 325 Mg PO BIDAFTMEAL Bisacodyl 10 Mg Supp.rect 10 Mg RC PRN DAILY PRN Felbamate 400 Mg Tablet 800 Mg PO TID I have reviewed the current psychotropics carefully including drug interactions. Risk benefit ratio favors no change other than as noted in my dictated progress note. Diagnosis: Problems: (1) Functional diarrhea (2) urinary tract infection (3) Left hip arthroplasty (4) Severe major depression with psychotic features (5) Adjustment disorder with depressed mood (6) Bipolar affective, mixed (7) Impulse control disorder (8) Dementia, vascular, with delusions (9) Dementia, vascular, with depression HARVEY QUIJANO MD Dec 25, 2017 21:00
--- NOTE | 2017-12-25 22:39 | PN ---
DATE: 12/24/2017 This late entry, 12/24/2017, covers elements not covered in my initial note. SUBJECTIVE: I met with the patient in the evening. The patient slept 8 hours previous night. She is withdrawn in a wheelchair. REVIEW OF SYSTEMS: Ambulation impaired. No CV, , pulmonary, eye, ENT system symptoms on review. She does complain of hand pain. Her sister visited her and the patient was pleased with this, but not very expressive or verbal as I addressed this with her. MENTAL STATUS EXAM: Oriented to herself and situation. Speech moderate latency, low in rate and rhythm, low in volume. Abstraction fair, computation impaired, language function intact, attention span short. Mood and affect is improved. LABORATORY DATA: Reviewed. IMPRESSION: Unchanged from initial note. PLAN: No change from initial note. MAN Luis QUIJANO MD DR: LOYD/eboni JOB#: [id number] / [id number]
--- NOTE | 2017-12-25 23:51 | NUR ---
Nursing Note Patient located in day room for shift assessment and medication. Patient takes medications whole. Patient is withdrawn during interactions with this nurse and answers questions with the minimal amount of words. Patient is alert and oriented to self only. Patient is currently located in patient room sleeping.
[2017-12-26 05:41] VITALS: BP 106/69
[2017-12-26] MEDS: LEVOTHYROXINE 50 MCG TABLET PO SCH (06:29)
[2017-12-26] MEDS: CALCIUM CARBONATE 500 MG TABLET PO SCH ×2 (08:48→16:25)
[2017-12-26] MEDS: CHOLECALCIFEROL (VITAMIN D3) 1,000 UNIT TABLET PO SCH (08:48)
[2017-12-26] MEDS: LACTOBACILLUS RHAMNOSUS GG 1 CAPSULE. PO SCH ×2 (08:48→20:01)
[2017-12-26] MEDS: FERROUS SULFATE 325 MG TABLET. PO SCH ×2 (08:48→17:24)
[2017-12-26] MEDS: QUEtiapine 25 MG TABLET. PO SCH ×4 (08:48→20:01)
[2017-12-26] MEDS: levETIRAcetam 250 MG TABLET PO SCH ×2 (08:48→17:24)
[2017-12-26] MEDS: PANTOPRAZOLE 40 MG TABLET. PO SCH ×2 (08:48→16:25)
[2017-12-26] MEDS: DULoxetine HCL 60 MG CAPSULE.DR PO SCH (08:48)
[2017-12-26] MEDS: MAGNESIUM OXIDE 400 MG TABLET PO SCH ×3 (08:48→20:01)
[2017-12-26] MEDS: DIVALPROEX 125 MG CAP.SPRINK PO SCH ×2 (08:49→20:01)
[2017-12-26] MEDS: FELBAMATE 400 MG TABLET PO SCH ×3 (08:51→20:08)
[2017-12-26] MEDS: 0.9 % SODIUM CHLORIDE 10 ML DISP.SYRIN. IV SCH (08:51)
[2017-12-26] MEDS: LACOSAMIDE 50 MG TABLET PO SCH ×2 (08:55→17:23)
--- NOTE | 2017-12-26 09:27 | NUR ---
Nurse dropped patients pills on floor after scanning. Repulled medications from [facility]. Addendum: 12/26/17 at 0932 by OZZY REYES RN Veena Blanca in pharmacy.
--- NOTE | 2017-12-26 09:29 | NUR ---
WEEKLY ACTIVITY THERAPY NOTE Date of Admission: 12/19/2017 Date of AT Assessment: 12/23/2017 Goal aimed: to increase stimulation and socialization Initial goal: Pt. will participate in at least one group per day. Weekly progress towards goal: on track Group participation level: varies, full participation in balloon bop on 12/23/2017, usually moderate participate during workout sessions. Behaviors observed: Pt. is willing to participate in groups but needs encouragement and prompting at times. She sleeps often and is generally calm Plan: no change to goal
--- NOTE | 2017-12-26 12:06 | NUR ---
Patient compliant with medications. Watching TV in day room and napping in wheelchair. Pleasant and cooperative, reported pain in L. wrist, gave PRN ultram at 0925. No adverse behaviors noted at this time.
--- NOTE | 2017-12-26 13:09 | NUR ---
WEEKLY UPDATE: Pt is calm, cooperative and needs some encouragement to attend groups. Pt came in with a UTI but is scheduled to finish her last dose today. Pt son would like to have the process for pt to discharge to [facility] at the time of discharge. SW to help coordinate this and look towards a discharge of 01/02.
--- NOTE | 2017-12-26 13:53 | NUR ---
PATTI contacted [facility] to inquire about potential admission for pt. PATTI faxed over a referral and asked that they call with any questions. PATTI attempted to contact pt son, Kaushik, and asked for him to contact PATTI with an update on pt and treatment team decisions.
[2017-12-26 16:12] VITALS: BP 135/90
[2017-12-26] MEDS: cefTRIAXone IM 1 GM VIAL IM SCH (16:28)
[2017-12-26] MEDS: ATORVASTATIN CALCIUM 10 MG TABLET. PO SCH (20:01)
[2017-12-26] MEDS: PHENobarbital 32.4 MG TABLET. PO SCH (20:03)
--- NOTE | 2017-12-26 20:54 | PDOC ---
Exam Note: David Note: Please also refer to the separate dictated note~for this date of service dictated separately.~Patient seen individually. Discussed the patient with Nursing staff reviewed the chart.~Reviewed interim history and current functioning. Reviewed vital signs,~Labs/ Radiology~and current medications noted below. Continue current treatment with the changes noted in the dictated addendum note Assessment: Vital Signs: Vital Signs Date Time Temp Pulse Resp B/P (MAP) Pulse Ox O2 Delivery O2 Flow Rate FiO2 12/26/17 16:12 97.2 68 20 135/90 (105) 96 12/25/17 15:34 Room Air I&O Intake and Output 12/26/17 07:00 Intake Total 660 ml Balance 660 ml Intake Oral 660 ml Current Medications: Meds: Current Medications Acetaminophen (Tylenol) 650 mg PRN Q6HRS PRN PO PAIN / TEMP; Start 12/19/17 at 18:15 Multi-Ingredient Ointment (Analgesic [place]) 1 radha PRN QID PRN TP MUSCLE PAIN; Start 12/19/17 at 18:15 Al Hydroxide/Mg Hydroxide (Mylanta Plus Xs) 15 ml PRN AFTMEALHC PRN PO DYSPEPSIA; Start 12/19/17 at 18:15 Magnesium Hydroxide (Milk Of Magnesia) 2,400 mg PRN QHS PRN PO CONSTIPATION Last administered on 12/20/17at 19:40; Start 12/19/17 at 18:15 Acetaminophen (Tylenol) 650 mg PRN Q6HRS PRN PO PAIN / TEMP; Start 12/19/17 at 18:15; Status UNV Calcium Carbonate/ Glycine (Oscal) 500 mg BIDWMEALS PO Last administered on at 16:25; Start 12/20/17 at 08:00 Ceftriaxone Sodium (Rocephin) 1 gm DAILY16 IV ; Start 12/20/17 at 16:00; Status UNV Vitamin D (Vitamin D3) 1,000 unit DAILY PO Last administered on 12/26/17at 08:48 ; Start 12/20/17 at 09:00 Felbamate (Felbatol) 800 mg TID PO Last administered on 12/26/17at 20:08; Start 12/19/17 at 21:00 Ferrous Sulfate (Feosol) 325 mg BIDAFTMEAL PO Last administered on 9/13/18at 17 :24; Start 12/20/17 at 09:00 Al Hydroxide/Mg Hydroxide (Mylanta Plus Xs) 15 ml PRN AFTMEALHC PRN PO DYSPEPSIA; Start 12/19/17 at 18:15; Status UNV Multi-Ingredient Ointment (Analgesic [place]) 1 radha PRN QID PRN TP MUSCLE PAIN; Start 12/19/17 at 18:15; Status UNV Senna/Docusate Sodium (Senna Plus) 1 tab PRN BID PRN PO CONSTIPATION; Start 12/19/17 at 18:15 Tramadol HCl (Ultram) 50 mg PRN Q6HRS PRN PO PAIN Last administered on 07:43; Start 12/19/17 at 18:15 Atorvastatin Calcium (Lipitor) 5 mg QHS PO Last administered on 12/26/17 20:01 ; Start 12/19/17 at 21:00 Bisacodyl (Dulcolax Supp) 10 mg PRN DAILY PRN [place] CONSTIPATION; Start 12/19/17 at 18:45 Divalproex Sodium (Depakote Sprinkles) 500 mg DAILY PO Last administered on 08:49; Start 12/20/17 at 09:00 Divalproex Sodium (Depakote Sprinkles) 750 mg QHS PO Last administered on 20:01; Start 12/19/17 at 21:00 Duloxetine HCl (Cymbalta) 60 mg DAILY PO Last administered on 12/26/17 08:48; Start 12/20/17 at 09:00 Lacosamide (Vimpat) 200 mg BIDAFTMEAL PO Last administered on 12/26/17 17:23; Start 12/19/17 at 21:00 Lactobacillus Rhamnosus (Culturelle) 1 cap BID PO Last administered on 20:01; Start 12/19/17 at 21:00 Levetiracetam (Keppra) 750 mg BIDAFTMEAL PO Last administered on 12/26/17 17: 24; Start 12/20/17 at 09:00 Levothyroxine Sodium (Synthroid) 50 mcg DAILY06 PO Last administered on 06:29; Start 12/20/17 at 06:00 Non-Formulary Medication (Magnesium Hydroxide (Milk Of Magnesia)) 2,400 mg PRN QHS PRN PO CONSTIPATION; Start 12/19/17 at 18:15; Status UNV Magnesium Oxide (Magnesium Oxide) 400 mg TID PO Last administered on 12/26/17at 20:01; Start 12/19/17 at 21:00 Pantoprazole Sodium (Protonix) 40 mg BIDBFRMEAL PO Last administered on at 16:25; Start 12/20/17 at 07:30 Phenobarbital (Luminal) 64.8 mg QHS PO Last administered on 12/26/17 20:03; Start 12/19/17 at 21:00 Polyethylene Glycol (miraLAX) 17 gm PRN DAILY PRN PO CONSTIPATION; Start at 09:00 Quetiapine Fumarate (SEROquel) 12.5 mg QID PO Last administered on 12/26/17at 20 :01; Start 12/19/17 at 21:00 Trazodone HCl (Desyrel) 50 mg PRN QHS PRN PO INSOMNIA, MAY REPEAT X1 Last administered on 12/20/17at 23:32; Start 12/19/17 at 19:00 Ceftriaxone Sodium (Rocephin) 1 gm Q24H IVP Last administered on 12/21/17at 15:55 ; Start 12/20/17 at 16:00; Stop 12/22/17 at 12:32; Status DC Sodium Chloride (Normal Saline Flush) 10 ml BID IV Last administered on at 07:46; Start 12/19/17 at 21:00; Stop 12/26/17 at 12:06; Status DC Sodium Chloride (Normal Saline Flush) 10 ml PRN DAILY PRN IV SEE COMMENTS Last administered on 12/22/17at 17:12; Start 12/19/17 at 19:45; Stop 12/26/17 at 12:06; Status DC Ceftriaxone Sodium (Rocephin) 1 gm Q24H IVP Last administered on 12/24/17at 17: 38; Start 12/22/17 at 16:00; Stop 12/25/17 at 16:38; Status DC Ceftriaxone Sodium (Rocephin Im) 1 gm Q24H ONCE IM ; Start 12/25/17 at 16:45; Stop 12/25/17 at 16:45; Status DC Ceftriaxone Sodium (Rocephin Im) 1 gm Q24H IM Last administered on 12/26/17at 16 :28; Start 12/25/17 at 16:45; Stop 12/26/17 at 21:00 Active Scripts Active Reported Ceftriaxone (Ceftriaxone Sodium) 1 Gm Vial 1 Gm IM/IV DAILY16 Levothyroxine Sodium 50 Mcg Tablet 50 Mcg PO DAILYAC Depakote Sprinkle (Divalproex Sodium) 125 Mg Cap.sprink 750 Mg PO QHS Trazodone Hcl 50 Mg Tablet 50 Mg PO PRN QHS PRN Analgesic [place] (Methyl Salicylate/Menthol) 28 Gm Oint...g. 1 Radha TP PRN QID PRN Mag-Al Plus Xs Suspension (Mag Hydrox/Al Hydrox/Simeth) 30 Ml Oral.susp 15 Ml PO PRN AFTMEALHC PRN Culturelle (Lactobacillus Rhamnosus Gg) 1 Each Capsule 1 Cap PO BID Vimpat (Lacosamide) 200 Mg Tablet 200 Mg PO BIDAFTMEAL Cymbalta (Duloxetine Hcl) 60 Mg Capsule.dr 60 Mg PO DAILY Divalproex Sodium 500 Mg Tablet.dr 500 Mg PO DAILY Oyster Shell Calcium (Calcium Carbonate) 500 Mg Tablet 1 Tab PO BIDWMEALS Miralax (Polyethylene Glycol 3350) 17 Gm Powd.pack 17 Gm PO PRN DAILY PRN Milk Of Magnesia (Magnesium Hydroxide) 2,400 Mg/10 Ml Oral.susp 2,400 Mg PO PRN QHS PRN Atorvastatin Calcium 10 Mg Tablet 5 Mg PO QHS Seroquel (Quetiapine Fumarate) 25 Mg Tablet 12.5 Mg PO [id number] Pantoprazole Sodium 40 Mg Tablet.dr 40 Mg PO BIDBFRMEAL Vitamin D3 (Cholecalciferol (Vitamin D3)) 1,000 Unit Tablet 1,000 Unit PO DAILY Phenobarbital 64.8 Mg Tablet 64.8 Mg PO HS Magnesium Oxide 400 Mg Tablet 400 Mg PO TID Tylenol (Acetaminophen) 325 Mg Tablet 650 Mg PO PRN Q6HRS PRN Tramadol Hcl (Tramadol HCl) 50 Mg Tablet 50 Mg PO PRN Q6HRS PRN Senna-S Tablet (Sennosides/Docusate Sodium) 1 Each Tablet 1 Tab PO PRN BID PRN Keppra (Levetiracetam) 250 Mg Tablet 750 Mg PO BIDAFTMEAL Ferrous Sulfate 325 Mg Tablet 325 Mg PO BIDAFTMEAL Bisacodyl 10 Mg Supp.rect 10 Mg RC PRN DAILY PRN Felbamate 400 Mg Tablet 800 Mg PO TID I have reviewed the current psychotropics carefully including drug interactions. Risk benefit ratio favors no change other than as noted in my dictated progress note. Diagnosis: Problems: (1) Functional diarrhea (2) urinary tract infection (3) Left hip arthroplasty (4) Severe major depression with psychotic features (5) Adjustment disorder with depressed mood (6) Bipolar affective, mixed (7) Impulse control disorder (8) Dementia, vascular, with delusions (9) Dementia, vascular, with depression HARVEY QUIJANO MD Dec 26, 2017 20:54
--- NOTE | 2017-12-27 00:42 | NUR ---
Pt sitting quietly in day room at shift change. Pt A/O to self, situation. Pt calm, cooperative, pleasant. Pt compliant w/meds & assessment.
[2017-12-27 06:04] VITALS: BP 115/63
[2017-12-27] MEDS: LEVOTHYROXINE 50 MCG TABLET PO SCH (06:30)
[2017-12-27] MEDS: MAGNESIUM HYDROXIDE 2,400 MG/30 ML ORAL.SUSP. PO PRN (07:48)
[2017-12-27] MEDS: LACTOBACILLUS RHAMNOSUS GG 1 CAPSULE. PO SCH ×2 (07:48→20:17)
[2017-12-27] MEDS: CHOLECALCIFEROL (VITAMIN D3) 1,000 UNIT TABLET PO SCH (07:49)
[2017-12-27] MEDS: QUEtiapine 25 MG TABLET. PO SCH ×4 (07:49→20:16)
[2017-12-27] MEDS: CALCIUM CARBONATE 500 MG TABLET PO SCH ×2 (07:49→18:38)
[2017-12-27] MEDS: PANTOPRAZOLE 40 MG TABLET. PO SCH ×2 (07:49→18:39)
[2017-12-27] MEDS: levETIRAcetam 250 MG TABLET PO SCH ×2 (07:49→18:39)
[2017-12-27] MEDS: FERROUS SULFATE 325 MG TABLET. PO SCH ×2 (07:49→18:39)
[2017-12-27] MEDS: DIVALPROEX 125 MG CAP.SPRINK PO SCH ×2 (07:50→20:15)
[2017-12-27] MEDS: LACOSAMIDE 50 MG TABLET PO SCH ×2 (07:54→18:38)
[2017-12-27] MEDS: MAGNESIUM OXIDE 400 MG TABLET PO SCH ×3 (07:54→20:15)
[2017-12-27] MEDS: DULoxetine HCL 60 MG CAPSULE.DR PO SCH (07:54)
[2017-12-27] MEDS: FELBAMATE 400 MG TABLET PO SCH ×3 (07:54→20:17)
--- NOTE | 2017-12-27 09:21 | NUR ---
Pt located in dining room, eating breakfast. Compliant with am medications, resistive to MOM, but compliant. States that she does not like the arm brace on her left arm.
--- NOTE | 2017-12-27 13:03 | NUR ---
PATTI received call from Kaushik, pt son to discuss, team conference and scheduling pt discharge for 01/02. PATTI informed Kaushik that pt has done really well during this stay; as a staff member reported that pt had been there 3-4 times since she has started and this is the best she has seen her. Pt son will contact [facility] to make sure they received the referral. Pt son mentioned that his Aunt mentioned a facility in [place] and would follow up on that.
[2017-12-27 15:32] VITALS: BP 128/63
[2017-12-27] MEDS: ATORVASTATIN CALCIUM 10 MG TABLET. PO SCH (20:15)
[2017-12-27] MEDS: PHENobarbital 32.4 MG TABLET. PO SCH (20:17)
--- NOTE | 2017-12-27 20:50 | PDOC ---
Exam Note: David Note: Please also refer to the separate dictated note~for this date of service dictated separately.~Patient seen individually. Discussed the patient with Nursing staff reviewed the chart.~Reviewed interim history and current functioning. Reviewed vital signs,~Labs/ Radiology~and current medications noted below. Continue current treatment with the changes noted in the dictated addendum note Assessment: Vital Signs: Vital Signs Date Time Temp Pulse Resp B/P (MAP) Pulse Ox O2 Delivery O2 Flow Rate FiO2 12/27/17 15:32 97.6 72 18 128/63 (84) 94 12/27/17 06:04 Room Air I&O Intake and Output 12/27/17 07:00 Intake Total 780 ml Balance 780 ml Intake Oral 780 ml # Voids 1 Current Medications: Meds: Current Medications Acetaminophen (Tylenol) 650 mg PRN Q6HRS PRN PO PAIN / TEMP; Start 12/19/17 at 18:15 Multi-Ingredient Ointment (Analgesic [place]) 1 radha PRN QID PRN TP MUSCLE PAIN; Start 12/19/17 at 18:15 Al Hydroxide/Mg Hydroxide (Mylanta Plus Xs) 15 ml PRN AFTMEALHC PRN PO DYSPEPSIA; Start 12/19/17 at 18:15 Magnesium Hydroxide (Milk Of Magnesia) 2,400 mg PRN QHS PRN PO CONSTIPATION Last administered on 12/27/17at 07:48; Start 12/19/17 at 18:15 Acetaminophen (Tylenol) 650 mg PRN Q6HRS PRN PO PAIN / TEMP; Start 12/19/17 at 18:15; Status UNV Calcium Carbonate/ Glycine (Oscal) 500 mg BIDWMEALS PO Last administered on at 18:38; Start 12/20/17 at 08:00 Ceftriaxone Sodium (Rocephin) 1 gm DAILY16 IV ; Start 12/20/17 at 16:00; Status UNV Vitamin D (Vitamin D3) 1,000 unit DAILY PO Last administered on 12/27/17at 07:49 ; Start 12/20/17 at 09:00 Felbamate (Felbatol) 800 mg TID PO Last administered on 12/27/17at 20:17; Start 12/19/17 at 21:00 Ferrous Sulfate (Feosol) 325 mg BIDAFTMEAL PO Last administered on 12/27/17 18 :39; Start 12/20/17 at 09:00 Al Hydroxide/Mg Hydroxide (Mylanta Plus Xs) 15 ml PRN AFTMEALHC PRN PO DYSPEPSIA; Start 12/19/17 at 18:15; Status UNV Multi-Ingredient Ointment (Analgesic [place]) 1 radha PRN QID PRN TP MUSCLE PAIN; Start 12/19/17 at 18:15; Status UNV Senna/Docusate Sodium (Senna Plus) 1 tab PRN BID PRN PO CONSTIPATION; Start 12/19/17 at 18:15 Tramadol HCl (Ultram) 50 mg PRN Q6HRS PRN PO PAIN Last administered on 07:43; Start 12/19/17 at 18:15 Atorvastatin Calcium (Lipitor) 5 mg QHS PO Last administered on 12/27/17 20:15 ; Start 12/19/17 at 21:00 Bisacodyl (Dulcolax Supp) 10 mg PRN DAILY PRN [place] CONSTIPATION; Start 12/19/17 at 18:45 Divalproex Sodium (Depakote Sprinkles) 500 mg DAILY PO Last administered on 07:50; Start 12/20/17 at 09:00 Divalproex Sodium (Depakote Sprinkles) 750 mg QHS PO Last administered on 20:15; Start 12/19/17 at 21:00 Duloxetine HCl (Cymbalta) 60 mg DAILY PO Last administered on 12/27/17 07:54; Start 12/20/17 at 09:00 Lacosamide (Vimpat) 200 mg BIDAFTMEAL PO Last administered on 12/27/17 18:38; Start 12/19/17 at 21:00 Lactobacillus Rhamnosus (Culturelle) 1 cap BID PO Last administered on 20:17; Start 12/19/17 at 21:00 Levetiracetam (Keppra) 750 mg BIDAFTMEAL PO Last administered on 12/27/17 18: 39; Start 12/20/17 at 09:00 Levothyroxine Sodium (Synthroid) 50 mcg DAILY06 PO Last administered on 06:30; Start 12/20/17 at 06:00 Non-Formulary Medication (Magnesium Hydroxide (Milk Of Magnesia)) 2,400 mg PRN QHS PRN PO CONSTIPATION; Start 12/19/17 at 18:15; Status UNV Magnesium Oxide (Magnesium Oxide) 400 mg TID PO Last administered on 12/27/17at 20:15; Start 12/19/17 at 21:00 Pantoprazole Sodium (Protonix) 40 mg BIDBFRMEAL PO Last administered on at 18:39; Start 12/20/17 at 07:30 Phenobarbital (Luminal) 64.8 mg QHS PO Last administered on 12/27/17at 20:17; Start 12/19/17 at 21:00 Polyethylene Glycol (miraLAX) 17 gm PRN DAILY PRN PO CONSTIPATION; Start at 09:00 Quetiapine Fumarate (SEROquel) 12.5 mg QID PO Last administered on 12/27/17at 20 :16; Start 12/19/17 at 21:00 Trazodone HCl (Desyrel) 50 mg PRN QHS PRN PO INSOMNIA, MAY REPEAT X1 Last administered on 12/20/17at 23:32; Start 12/19/17 at 19:00 Ceftriaxone Sodium (Rocephin) 1 gm Q24H IVP Last administered on 12/21/17at 15:55 ; Start 12/20/17 at 16:00; Stop 12/22/17 at 12:32; Status DC Sodium Chloride (Normal Saline Flush) 10 ml BID IV Last administered on at 07:46; Start 12/19/17 at 21:00; Stop 12/26/17 at 12:06; Status DC Sodium Chloride (Normal Saline Flush) 10 ml PRN DAILY PRN IV SEE COMMENTS Last administered on 12/22/17at 17:12; Start 12/19/17 at 19:45; Stop 12/26/17 at 12:06; Status DC Ceftriaxone Sodium (Rocephin) 1 gm Q24H IVP Last administered on 12/24/17at 17: 38; Start 12/22/17 at 16:00; Stop 12/25/17 at 16:38; Status DC Ceftriaxone Sodium (Rocephin Im) 1 gm Q24H ONCE IM ; Start 12/25/17 at 16:45; Stop 12/25/17 at 16:45; Status DC Ceftriaxone Sodium (Rocephin Im) 1 gm Q24H IM Last administered on 12/26/17at 16 :28; Start 12/25/17 at 16:45; Stop 12/26/17 at 21:00; Status DC Active Scripts Active Reported Ceftriaxone (Ceftriaxone Sodium) 1 Gm Vial 1 Gm IM/IV DAILY16 Levothyroxine Sodium 50 Mcg Tablet 50 Mcg PO DAILYAC Depakote Sprinkle (Divalproex Sodium) 125 Mg Cap.sprink 750 Mg PO QHS Trazodone Hcl 50 Mg Tablet 50 Mg PO PRN QHS PRN Analgesic [place] (Methyl Salicylate/Menthol) 28 Gm Oint...g. 1 Radha TP PRN QID PRN Mag-Al Plus Xs Suspension (Mag Hydrox/Al Hydrox/Simeth) 30 Ml Oral.susp 15 Ml PO PRN AFTMEALHC PRN Culturelle (Lactobacillus Rhamnosus Gg) 1 Each Capsule 1 Cap PO BID Vimpat (Lacosamide) 200 Mg Tablet 200 Mg PO BIDAFTMEAL Cymbalta (Duloxetine Hcl) 60 Mg Capsule.dr 60 Mg PO DAILY Divalproex Sodium 500 Mg Tablet.dr 500 Mg PO DAILY Oyster Shell Calcium (Calcium Carbonate) 500 Mg Tablet 1 Tab PO BIDWMEALS Miralax (Polyethylene Glycol 3350) 17 Gm Powd.pack 17 Gm PO PRN DAILY PRN Milk Of Magnesia (Magnesium Hydroxide) 2,400 Mg/10 Ml Oral.susp 2,400 Mg PO PRN QHS PRN Atorvastatin Calcium 10 Mg Tablet 5 Mg PO QHS Seroquel (Quetiapine Fumarate) 25 Mg Tablet 12.5 Mg PO [id number] Pantoprazole Sodium 40 Mg Tablet.dr 40 Mg PO BIDBFRMEAL Vitamin D3 (Cholecalciferol (Vitamin D3)) 1,000 Unit Tablet 1,000 Unit PO DAILY Phenobarbital 64.8 Mg Tablet 64.8 Mg PO HS Magnesium Oxide 400 Mg Tablet 400 Mg PO TID Tylenol (Acetaminophen) 325 Mg Tablet 650 Mg PO PRN Q6HRS PRN Tramadol Hcl (Tramadol HCl) 50 Mg Tablet 50 Mg PO PRN Q6HRS PRN Senna-S Tablet (Sennosides/Docusate Sodium) 1 Each Tablet 1 Tab PO PRN BID PRN Keppra (Levetiracetam) 250 Mg Tablet 750 Mg PO BIDAFTMEAL Ferrous Sulfate 325 Mg Tablet 325 Mg PO BIDAFTMEAL Bisacodyl 10 Mg Supp.rect 10 Mg RC PRN DAILY PRN Felbamate 400 Mg Tablet 800 Mg PO TID I have reviewed the current psychotropics carefully including drug interactions. Risk benefit ratio favors no change other than as noted in my dictated progress note. Diagnosis: Problems: (1) Functional diarrhea (2) urinary tract infection (3) Left hip arthroplasty (4) Severe major depression with psychotic features (5) Adjustment disorder with depressed mood (6) Bipolar affective, mixed (7) Impulse control disorder (8) Dementia, vascular, with delusions (9) Dementia, vascular, with depression HARVEY QUIJANO MD Dec 27, 2017 20:50
--- NOTE | 2017-12-27 23:18 | NUR ---
Pt sitting quietly in the day room at shift change. Pt calm, cooperative, and pleasant, compliant with medications.
--- NOTE | 2017-12-28 02:45 | PN ---
DATE: 12/25/2017 This is a late entry 12/25/2017 covers elements not covered in my initial note. SUBJECTIVE: I met with the patient in the evening. The patient slept 8-1/2 hours previous night. She has been withdrawn, otherwise quite compliant not very verbal, interactive. REVIEW OF SYSTEMS: Ambulation impaired, in wheelchair. No CV, , pulmonary, eye, ENT system symptoms on review. MENTAL STATUS EXAM: Oriented to herself and situation. Speech has some latency, coherent, often responses monosyllabic. We discussed her desire to return back to [facility] and she said she would like to go back to [facility] where she lived in the past for a long time. Ambulation impaired. No CV, , pulmonary, eye system symptoms on review. No active psychotic symptoms, suicidal or homicidal ideation. Mood and affect remains withdrawn. LABORATORY DATA: Reviewed. IMPRESSION: Unchanged from initial note. PLAN: No change from initial note. HARVEY QUIJANO MD DR: LOYD/eboni JOB#: [id number] / [id number]
--- NOTE | 2017-12-28 02:52 | PN ---
DATE: 12/26/2017 PSYCHIATRIC PROGRESS NOTE This late entry 12/26/2017 covers elements not covered in my initial note. SUBJECTIVE: I met with the patient in the evening. The patient slept 8-1/4 hours previous night. Staffed at a treatment team meeting in the morning. She has been cooperative, compliant, withdrawn, complains of some pain and ambulation impaired, in wheelchair. REVIEW OF SYSTEMS: No CV, , pulmonary, eye system symptoms on review. MENTAL STATUS EXAM: Oriented to herself and situation. Speech moderate latency, low in rate and rhythm, low in volume, often responses monosyllabic. Abstraction fair, computation impaired, language function intact, attention span short. Mood and affect withdrawn. LABORATORY DATA: Reviewed. IMPRESSION: Unchanged from initial note. PLAN: No change from initial note and family are attempting to get her back into her prior care home, [facility]. HARVEY QUIJANO MD DR: LOYD/eboni JOB#: [id number] / [id number]
[2017-12-28] MEDS: LEVOTHYROXINE 50 MCG TABLET PO SCH (05:59)
[2017-12-28 06:05] VITALS: BP 100/64
[2017-12-28] MEDS: PANTOPRAZOLE 40 MG TABLET. PO SCH ×2 (08:46→17:10)
[2017-12-28] MEDS: CALCIUM CARBONATE 500 MG TABLET PO SCH ×2 (08:46→17:10)
[2017-12-28] MEDS: DIVALPROEX 125 MG CAP.SPRINK PO SCH ×2 (08:47→19:38)
[2017-12-28] MEDS: LACTOBACILLUS RHAMNOSUS GG 1 CAPSULE. PO SCH ×2 (08:47→19:38)
[2017-12-28] MEDS: DULoxetine HCL 60 MG CAPSULE.DR PO SCH (08:47)
[2017-12-28] MEDS: MAGNESIUM OXIDE 400 MG TABLET PO SCH ×3 (08:48→19:38)
[2017-12-28] MEDS: FERROUS SULFATE 325 MG TABLET. PO SCH ×2 (08:48→17:10)
[2017-12-28] MEDS: levETIRAcetam 250 MG TABLET PO SCH ×2 (08:48→17:11)
[2017-12-28] MEDS: FELBAMATE 400 MG TABLET PO SCH ×3 (08:48→19:38)
[2017-12-28] MEDS: QUEtiapine 25 MG TABLET. PO SCH ×4 (08:49→19:38)
[2017-12-28] MEDS: CHOLECALCIFEROL (VITAMIN D3) 1,000 UNIT TABLET PO SCH (08:53)
[2017-12-28] MEDS: LACOSAMIDE 50 MG TABLET PO SCH ×2 (08:56→17:11)
--- NOTE | 2017-12-28 11:47 | NUR ---
Pt is calm, cooperative, compliant and interactive. She is not hitting, kicking or pinching. She is compliant with her medication and assessment.
[2017-12-28 15:46] VITALS: BP 100/65
[2017-12-28] MEDS: ATORVASTATIN CALCIUM 10 MG TABLET. PO SCH (19:38)
[2017-12-28] MEDS: PHENobarbital 32.4 MG TABLET. PO SCH (19:39)
--- NOTE | 2017-12-28 22:53 | PDOC ---
Exam Note: David Note: Please also refer to the separate dictated note~for this date of service dictated separately.~Patient seen individually. Discussed the patient with Nursing staff reviewed the chart.~Reviewed interim history and current functioning. Reviewed vital signs,~Labs/ Radiology~and current medications noted below. Continue current treatment with the changes noted in the dictated addendum note Assessment: Vital Signs: Vital Signs Date Time Temp Pulse Resp B/P (MAP) Pulse Ox O2 Delivery O2 Flow Rate FiO2 12/28/17 15:46 97.7 80 20 100/65 (77) 100 12/27/17 06:04 Room Air I&O Intake and Output 12/28/17 07:00 Intake Total 785 ml Balance 785 ml Intake Oral 785 ml Current Medications: Meds: Current Medications Acetaminophen (Tylenol) 650 mg PRN Q6HRS PRN PO PAIN / TEMP; Start 12/19/17 at 18:15 Multi-Ingredient Ointment (Analgesic [place]) 1 radha PRN QID PRN TP MUSCLE PAIN; Start 12/19/17 at 18:15 Al Hydroxide/Mg Hydroxide (Mylanta Plus Xs) 15 ml PRN AFTMEALHC PRN PO DYSPEPSIA; Start 12/19/17 at 18:15 Magnesium Hydroxide (Milk Of Magnesia) 2,400 mg PRN QHS PRN PO CONSTIPATION Last administered on 12/27/17at 07:48; Start 12/19/17 at 18:15 Acetaminophen (Tylenol) 650 mg PRN Q6HRS PRN PO PAIN / TEMP; Start 12/19/17 at 18:15; Status UNV Calcium Carbonate/ Glycine (Oscal) 500 mg BIDWMEALS PO Last administered on at 17:10; Start 12/20/17 at 08:00 Ceftriaxone Sodium (Rocephin) 1 gm DAILY16 IV ; Start 12/20/17 at 16:00; Status UNV Vitamin D (Vitamin D3) 1,000 unit DAILY PO Last administered on 12/28/17at 08:53 ; Start 12/20/17 at 09:00 Felbamate (Felbatol) 800 mg TID PO Last administered on 12/28/17at 19:38; Start 12/19/17 at 21:00 Ferrous Sulfate (Feosol) 325 mg BIDAFTMEAL PO Last administered on 12/28/17 17 :10; Start 12/20/17 at 09:00 Al Hydroxide/Mg Hydroxide (Mylanta Plus Xs) 15 ml PRN AFTMEALHC PRN PO DYSPEPSIA; Start 12/19/17 at 18:15; Status UNV Multi-Ingredient Ointment (Analgesic [place]) 1 radha PRN QID PRN TP MUSCLE PAIN; Start 12/19/17 at 18:15; Status UNV Senna/Docusate Sodium (Senna Plus) 1 tab PRN BID PRN PO CONSTIPATION; Start 12/19/17 at 18:15 Tramadol HCl (Ultram) 50 mg PRN Q6HRS PRN PO PAIN Last administered on 07:43; Start 12/19/17 at 18:15 Atorvastatin Calcium (Lipitor) 5 mg QHS PO Last administered on 12/28/17 19:38 ; Start 12/19/17 at 21:00 Bisacodyl (Dulcolax Supp) 10 mg PRN DAILY PRN [place] CONSTIPATION; Start 12/19/17 at 18:45 Divalproex Sodium (Depakote Sprinkles) 500 mg DAILY PO Last administered on 08:47; Start 12/20/17 at 09:00 Divalproex Sodium (Depakote Sprinkles) 750 mg QHS PO Last administered on 19:38; Start 12/19/17 at 21:00 Duloxetine HCl (Cymbalta) 60 mg DAILY PO Last administered on 12/28/17 08:47; Start 12/20/17 at 09:00 Lacosamide (Vimpat) 200 mg BIDAFTMEAL PO Last administered on 12/28/17 17:11; Start 12/19/17 at 21:00 Lactobacillus Rhamnosus (Culturelle) 1 cap BID PO Last administered on 19:38; Start 12/19/17 at 21:00 Levetiracetam (Keppra) 750 mg BIDAFTMEAL PO Last administered on 12/28/17 17: 11; Start 12/20/17 at 09:00 Levothyroxine Sodium (Synthroid) 50 mcg DAILY06 PO Last administered on 05:59; Start 12/20/17 at 06:00 Non-Formulary Medication (Magnesium Hydroxide (Milk Of Magnesia)) 2,400 mg PRN QHS PRN PO CONSTIPATION; Start 12/19/17 at 18:15; Status UNV Magnesium Oxide (Magnesium Oxide) 400 mg TID PO Last administered on 12/28/17 19:38; Start 12/19/17 at 21:00 Pantoprazole Sodium (Protonix) 40 mg BIDBFRMEAL PO Last administered on at 17:10; Start 12/20/17 at 07:30 Phenobarbital (Luminal) 64.8 mg QHS PO Last administered on 12/28/17 19:39; Start 12/19/17 at 21:00 Polyethylene Glycol (miraLAX) 17 gm PRN DAILY PRN PO CONSTIPATION; Start at 09:00 Quetiapine Fumarate (SEROquel) 12.5 mg QID PO Last administered on 12/28/17 19 :38; Start 12/19/17 at 21:00 Trazodone HCl (Desyrel) 50 mg PRN QHS PRN PO INSOMNIA, MAY REPEAT X1 Last administered on 12/20/17at 23:32; Start 12/19/17 at 19:00 Ceftriaxone Sodium (Rocephin) 1 gm Q24H IVP Last administered on 12/21/17at 15:55 ; Start 12/20/17 at 16:00; Stop 12/22/17 at 12:32; Status DC Sodium Chloride (Normal Saline Flush) 10 ml BID IV Last administered on at 07:46; Start 12/19/17 at 21:00; Stop 12/26/17 at 12:06; Status DC Sodium Chloride (Normal Saline Flush) 10 ml PRN DAILY PRN IV SEE COMMENTS Last administered on 12/22/17at 17:12; Start 12/19/17 at 19:45; Stop 12/26/17 at 12:06; Status DC Ceftriaxone Sodium (Rocephin) 1 gm Q24H IVP Last administered on 12/24/17 17: 38; Start 12/22/17 at 16:00; Stop 12/25/17 at 16:38; Status DC Ceftriaxone Sodium (Rocephin Im) 1 gm Q24H ONCE IM ; Start 12/25/17 at 16:45; Stop 12/25/17 at 16:45; Status DC Ceftriaxone Sodium (Rocephin Im) 1 gm Q24H IM Last administered on 12/26/17at 16 :28; Start 12/25/17 at 16:45; Stop 12/26/17 at 21:00; Status DC Active Scripts Active Reported Ceftriaxone (Ceftriaxone Sodium) 1 Gm Vial 1 Gm IM/IV DAILY16 Levothyroxine Sodium 50 Mcg Tablet 50 Mcg PO DAILYAC Depakote Sprinkle (Divalproex Sodium) 125 Mg Cap.sprink 750 Mg PO QHS Trazodone Hcl 50 Mg Tablet 50 Mg PO PRN QHS PRN Analgesic [place] (Methyl Salicylate/Menthol) 28 Gm Oint...g. 1 Radha TP PRN QID PRN Mag-Al Plus Xs Suspension (Mag Hydrox/Al Hydrox/Simeth) 30 Ml Oral.susp 15 Ml PO PRN AFTMEALHC PRN Culturelle (Lactobacillus Rhamnosus Gg) 1 Each Capsule 1 Cap PO BID Vimpat (Lacosamide) 200 Mg Tablet 200 Mg PO BIDAFTMEAL Cymbalta (Duloxetine Hcl) 60 Mg Capsule.dr 60 Mg PO DAILY Divalproex Sodium 500 Mg Tablet.dr 500 Mg PO DAILY Oyster Shell Calcium (Calcium Carbonate) 500 Mg Tablet 1 Tab PO BIDWMEALS Miralax (Polyethylene Glycol 3350) 17 Gm Powd.pack 17 Gm PO PRN DAILY PRN Milk Of Magnesia (Magnesium Hydroxide) 2,400 Mg/10 Ml Oral.susp 2,400 Mg PO PRN QHS PRN Atorvastatin Calcium 10 Mg Tablet 5 Mg PO QHS Seroquel (Quetiapine Fumarate) 25 Mg Tablet 12.5 Mg PO [id number] Pantoprazole Sodium 40 Mg Tablet.dr 40 Mg PO BIDBFRMEAL Vitamin D3 (Cholecalciferol (Vitamin D3)) 1,000 Unit Tablet 1,000 Unit PO DAILY Phenobarbital 64.8 Mg Tablet 64.8 Mg PO HS Magnesium Oxide 400 Mg Tablet 400 Mg PO TID Tylenol (Acetaminophen) 325 Mg Tablet 650 Mg PO PRN Q6HRS PRN Tramadol Hcl (Tramadol HCl) 50 Mg Tablet 50 Mg PO PRN Q6HRS PRN Senna-S Tablet (Sennosides/Docusate Sodium) 1 Each Tablet 1 Tab PO PRN BID PRN Keppra (Levetiracetam) 250 Mg Tablet 750 Mg PO BIDAFTMEAL Ferrous Sulfate 325 Mg Tablet 325 Mg PO BIDAFTMEAL Bisacodyl 10 Mg Supp.rect 10 Mg RC PRN DAILY PRN Felbamate 400 Mg Tablet 800 Mg PO TID I have reviewed the current psychotropics carefully including drug interactions. Risk benefit ratio favors no change other than as noted in my dictated progress note. Diagnosis: Problems: (1) Severe major depression with psychotic features (2) Adjustment disorder with depressed mood (3) Bipolar affective, mixed (4) Impulse control disorder (5) Dementia, vascular, with delusions (6) Dementia, vascular, with depression HARVEY QUIJANO MD Dec 28, 2017 22:53
--- NOTE | 2017-12-29 01:30 | NUR ---
Pt sitting quietly in the day room at shift change. Pt calm and pleasant, more interactive today. Pt cooperative w/assessment and compliant w/medications.
[2017-12-29 05:55] VITALS: BP 104/66
[2017-12-29] MEDS: LEVOTHYROXINE 50 MCG TABLET PO SCH (06:26)
[2017-12-29] MEDS: PANTOPRAZOLE 40 MG TABLET. PO SCH ×2 (08:50→17:17)
[2017-12-29] MEDS: CALCIUM CARBONATE 500 MG TABLET PO SCH ×2 (08:54→17:17)
[2017-12-29] MEDS: FERROUS SULFATE 325 MG TABLET. PO SCH ×2 (08:54→17:18)
[2017-12-29] MEDS: DULoxetine HCL 60 MG CAPSULE.DR PO SCH (08:54)
[2017-12-29] MEDS: LACTOBACILLUS RHAMNOSUS GG 1 CAPSULE. PO SCH ×2 (08:54→20:55)
[2017-12-29] MEDS: FELBAMATE 400 MG TABLET PO SCH ×3 (08:54→21:00)
[2017-12-29] MEDS: DIVALPROEX 125 MG CAP.SPRINK PO SCH ×2 (08:54→20:55)
[2017-12-29] MEDS: levETIRAcetam 250 MG TABLET PO SCH ×2 (08:55→17:18)
[2017-12-29] MEDS: QUEtiapine 25 MG TABLET. PO SCH ×4 (08:55→20:56)
[2017-12-29] MEDS: MAGNESIUM OXIDE 400 MG TABLET PO SCH ×3 (08:55→20:55)
[2017-12-29] MEDS: LACOSAMIDE 50 MG TABLET PO SCH ×2 (08:56→17:18)
[2017-12-29] MEDS: CHOLECALCIFEROL (VITAMIN D3) 1,000 UNIT TABLET PO SCH (08:56)
--- NOTE | 2017-12-29 10:23 | NUR ---
Pt is calm, cooperative, confused, and compliant. She is withdrawn at times but will participate in groups. No agitation or verbal aggression. No SI/HI. No hallucinations or delusions at this time.
[2017-12-29 16:39] VITALS: BP 97/61
[2017-12-29] MEDS: PHENobarbital 32.4 MG TABLET. PO SCH (20:55)
[2017-12-29] MEDS: ATORVASTATIN CALCIUM 10 MG TABLET. PO SCH (20:55)
--- NOTE | 2017-12-29 21:03 | PDOC ---
Exam Note: David Note: Please also refer to the separate dictated note~for this date of service dictated separately.~Patient seen individually. Discussed the patient with Nursing staff reviewed the chart.~Reviewed interim history and current functioning. Reviewed vital signs,~Labs/ Radiology~and current medications noted below. Continue current treatment with the changes noted in the dictated addendum note Assessment: Vital Signs: Vital Signs Date Time Temp Pulse Resp B/P (MAP) Pulse Ox O2 Delivery O2 Flow Rate FiO2 12/29/17 16:39 97.0 67 18 97/61 (73) 98 12/27/17 06:04 Room Air I&O Intake and Output 12/29/17 07:00 Intake Total 960 ml Balance 960 ml Intake Oral 960 ml # Voids 1 # Bowel Movements 1 Current Medications: Meds: Current Medications Acetaminophen (Tylenol) 650 mg PRN Q6HRS PRN PO PAIN / TEMP; Start 12/19/17 at 18:15 Multi-Ingredient Ointment (Analgesic [place]) 1 radha PRN QID PRN TP MUSCLE PAIN; Start 12/19/17 at 18:15 Al Hydroxide/Mg Hydroxide (Mylanta Plus Xs) 15 ml PRN AFTMEALHC PRN PO DYSPEPSIA; Start 12/19/17 at 18:15 Magnesium Hydroxide (Milk Of Magnesia) 2,400 mg PRN QHS PRN PO CONSTIPATION Last administered on 12/27/17at 07:48; Start 12/19/17 at 18:15 Acetaminophen (Tylenol) 650 mg PRN Q6HRS PRN PO PAIN / TEMP; Start 12/19/17 at 18:15; Status UNV Calcium Carbonate/ Glycine (Oscal) 500 mg BIDWMEALS PO Last administered on at 17:17; Start 12/20/17 at 08:00 Ceftriaxone Sodium (Rocephin) 1 gm DAILY16 IV ; Start 12/20/17 at 16:00; Status UNV Vitamin D (Vitamin D3) 1,000 unit DAILY PO Last administered on 12/29/17at 08:56 ; Start 12/20/17 at 09:00 Felbamate (Felbatol) 800 mg TID PO Last administered on 12/29/17at 21:00; Start 12/19/17 at 21:00 Ferrous Sulfate (Feosol) 325 mg BIDAFTMEAL PO Last administered on 12/29/17 17 :18; Start 12/20/17 at 09:00 Al Hydroxide/Mg Hydroxide (Mylanta Plus Xs) 15 ml PRN AFTMEALHC PRN PO DYSPEPSIA; Start 12/19/17 at 18:15; Status UNV Multi-Ingredient Ointment (Analgesic [place]) 1 radha PRN QID PRN TP MUSCLE PAIN; Start 12/19/17 at 18:15; Status UNV Senna/Docusate Sodium (Senna Plus) 1 tab PRN BID PRN PO CONSTIPATION; Start 12/19/17 at 18:15 Tramadol HCl (Ultram) 50 mg PRN Q6HRS PRN PO PAIN Last administered on at 07:43; Start 12/19/17 at 18:15 Atorvastatin Calcium (Lipitor) 5 mg QHS PO Last administered on 12/29/17at 20:55 ; Start 12/19/17 at 21:00 Bisacodyl (Dulcolax Supp) 10 mg PRN DAILY PRN [place] CONSTIPATION; Start 12/19/17 at 18:45 Divalproex Sodium (Depakote Sprinkles) 500 mg DAILY PO Last administered on at 08:54; Start 12/20/17 at 09:00 Divalproex Sodium (Depakote Sprinkles) 750 mg QHS PO Last administered on at 20:55; Start 12/19/17 at 21:00 Duloxetine HCl (Cymbalta) 60 mg DAILY PO Last administered on 12/29/17at 08:54; Start 12/20/17 at 09:00 Lacosamide (Vimpat) 200 mg BIDAFTMEAL PO Last administered on 12/29/17 17:18; Start 12/19/17 at 21:00 Lactobacillus Rhamnosus (Culturelle) 1 cap BID PO Last administered on at 20:55; Start 12/19/17 at 21:00 Levetiracetam (Keppra) 750 mg BIDAFTMEAL PO Last administered on 12/29/17 17: 18; Start 12/20/17 at 09:00 Levothyroxine Sodium (Synthroid) 50 mcg DAILY06 PO Last administered on at 06:26; Start 12/20/17 at 06:00 Non-Formulary Medication (Magnesium Hydroxide (Milk Of Magnesia)) 2,400 mg PRN QHS PRN PO CONSTIPATION; Start 12/19/17 at 18:15; Status UNV Magnesium Oxide (Magnesium Oxide) 400 mg TID PO Last administered on 12/29/17 20:55; Start 12/19/17 at 21:00 Pantoprazole Sodium (Protonix) 40 mg BIDBFRMEAL PO Last administered on 17:17; Start 12/20/17 at 07:30 Phenobarbital (Luminal) 64.8 mg QHS PO Last administered on 12/29/17 20:55; Start 12/19/17 at 21:00 Polyethylene Glycol (miraLAX) 17 gm PRN DAILY PRN PO CONSTIPATION; Start at 09:00 Quetiapine Fumarate (SEROquel) 12.5 mg QID PO Last administered on 12/29/17at 20 :56; Start 12/19/17 at 21:00 Trazodone HCl (Desyrel) 50 mg PRN QHS PRN PO INSOMNIA, MAY REPEAT X1 Last administered on 12/20/17at 23:32; Start 12/19/17 at 19:00 Ceftriaxone Sodium (Rocephin) 1 gm Q24H IVP Last administered on 12/21/17 15:55 ; Start 12/20/17 at 16:00; Stop 12/22/17 at 12:32; Status DC Sodium Chloride (Normal Saline Flush) 10 ml BID IV Last administered on at 07:46; Start 12/19/17 at 21:00; Stop 12/26/17 at 12:06; Status DC Sodium Chloride (Normal Saline Flush) 10 ml PRN DAILY PRN IV SEE COMMENTS Last administered on 12/22/17 17:12; Start 12/19/17 at 19:45; Stop 12/26/17 at 12:06; Status DC Ceftriaxone Sodium (Rocephin) 1 gm Q24H IVP Last administered on 12/24/17 17: 38; Start 12/22/17 at 16:00; Stop 12/25/17 at 16:38; Status DC Ceftriaxone Sodium (Rocephin Im) 1 gm Q24H ONCE IM ; Start 12/25/17 at 16:45; Stop 12/25/17 at 16:45; Status DC Ceftriaxone Sodium (Rocephin Im) 1 gm Q24H IM Last administered on 12/26/17at 16 :28; Start 12/25/17 at 16:45; Stop 12/26/17 at 21:00; Status DC Active Scripts Active Reported Ceftriaxone (Ceftriaxone Sodium) 1 Gm Vial 1 Gm IM/IV DAILY16 Levothyroxine Sodium 50 Mcg Tablet 50 Mcg PO DAILYAC Depakote Sprinkle (Divalproex Sodium) 125 Mg Cap.sprink 750 Mg PO QHS Trazodone Hcl 50 Mg Tablet 50 Mg PO PRN QHS PRN Analgesic [place] (Methyl Salicylate/Menthol) 28 Gm Oint...g. 1 Radha TP PRN QID PRN Mag-Al Plus Xs Suspension (Mag Hydrox/Al Hydrox/Simeth) 30 Ml Oral.susp 15 Ml PO PRN AFTMEALHC PRN Culturelle (Lactobacillus Rhamnosus Gg) 1 Each Capsule 1 Cap PO BID Vimpat (Lacosamide) 200 Mg Tablet 200 Mg PO BIDAFTMEAL Cymbalta (Duloxetine Hcl) 60 Mg Capsule.dr 60 Mg PO DAILY Divalproex Sodium 500 Mg Tablet.dr 500 Mg PO DAILY Oyster Shell Calcium (Calcium Carbonate) 500 Mg Tablet 1 Tab PO BIDWMEALS Miralax (Polyethylene Glycol 3350) 17 Gm Powd.pack 17 Gm PO PRN DAILY PRN Milk Of Magnesia (Magnesium Hydroxide) 2,400 Mg/10 Ml Oral.susp 2,400 Mg PO PRN QHS PRN Atorvastatin Calcium 10 Mg Tablet 5 Mg PO QHS Seroquel (Quetiapine Fumarate) 25 Mg Tablet 12.5 Mg PO [id number] Pantoprazole Sodium 40 Mg Tablet.dr 40 Mg PO BIDBFRMEAL Vitamin D3 (Cholecalciferol (Vitamin D3)) 1,000 Unit Tablet 1,000 Unit PO DAILY Phenobarbital 64.8 Mg Tablet 64.8 Mg PO HS Magnesium Oxide 400 Mg Tablet 400 Mg PO TID Tylenol (Acetaminophen) 325 Mg Tablet 650 Mg PO PRN Q6HRS PRN Tramadol Hcl (Tramadol HCl) 50 Mg Tablet 50 Mg PO PRN Q6HRS PRN Senna-S Tablet (Sennosides/Docusate Sodium) 1 Each Tablet 1 Tab PO PRN BID PRN Keppra (Levetiracetam) 250 Mg Tablet 750 Mg PO BIDAFTMEAL Ferrous Sulfate 325 Mg Tablet 325 Mg PO BIDAFTMEAL Bisacodyl 10 Mg Supp.rect 10 Mg RC PRN DAILY PRN Felbamate 400 Mg Tablet 800 Mg PO TID I have reviewed the current psychotropics carefully including drug interactions. Risk benefit ratio favors no change other than as noted in my dictated progress note. Diagnosis: Problems: (1) Functional diarrhea (2) urinary tract infection (3) Left hip arthroplasty (4) Severe major depression with psychotic features (5) Adjustment disorder with depressed mood (6) Bipolar affective, mixed (7) Impulse control disorder (8) Dementia, vascular, with delusions (9) Dementia, vascular, with depression HARVEY QUIJANO MD Dec 29, 2017 21:03
--- NOTE | 2017-12-29 23:09 | NUR ---
Patient in day room watching television at shift change. Calm, pleasant and compliant with medications. Patient took medications whole, two at a time with water. Patient has been polite to staff and cooperative throughout the evening.
[2017-12-30 06:40] VITALS: BP 100/59
[2017-12-30] MEDS: LEVOTHYROXINE 50 MCG TABLET PO SCH (06:45)
[2017-12-30] MEDS: PANTOPRAZOLE 40 MG TABLET. PO SCH ×2 (06:45→17:15)
[2017-12-30] MEDS: CALCIUM CARBONATE 500 MG TABLET PO SCH ×2 (08:42→17:15)
[2017-12-30] MEDS: DIVALPROEX 125 MG CAP.SPRINK PO SCH ×2 (08:43→20:06)
[2017-12-30] MEDS: LACTOBACILLUS RHAMNOSUS GG 1 CAPSULE. PO SCH ×2 (08:43→20:08)
[2017-12-30] MEDS: DULoxetine HCL 60 MG CAPSULE.DR PO SCH (08:43)
[2017-12-30] MEDS: FELBAMATE 400 MG TABLET PO SCH ×3 (08:47→20:07)
[2017-12-30] MEDS: levETIRAcetam 250 MG TABLET PO SCH ×2 (08:47→17:16)
[2017-12-30] MEDS: FERROUS SULFATE 325 MG TABLET. PO SCH ×2 (08:47→17:16)
[2017-12-30] MEDS: MAGNESIUM OXIDE 400 MG TABLET PO SCH ×3 (08:47→20:08)
[2017-12-30] MEDS: QUEtiapine 25 MG TABLET. PO SCH ×4 (08:48→20:06)
[2017-12-30] MEDS: LACOSAMIDE 50 MG TABLET PO SCH ×2 (08:48→17:16)
[2017-12-30] MEDS: CHOLECALCIFEROL (VITAMIN D3) 1,000 UNIT TABLET PO SCH (08:48)
[2017-12-30 11:09] LABS: BASO % 1 % (0-3); EOS # 0.5 x10^3/uL (0.0-0.7); EOS % 17 % (0-3); HEMATOCRIT 35.8 % (36.0-47.0); LYMPH # 0.8 x10^3/uL (1.0-4.8); LYMPH % 31 % (24-48); MEAN CORPUSCULAR HEMOGLOBIN 32 pg (25-35); MEAN CORPUSCULAR HGB CONC 34 g/dL (31-37); MEAN CORPUSCULAR VOLUME 96 fL (79-100); MONO # 0.4 x10^3/uL (0.0-1.1); MONO % 14 % (0-9); NEUT % 38 % (31-73); PLATELET COUNT 161 x10^3/uL (140-400); RED BLOOD COUNT 3.72 x10^6/uL (3.50-5.40); RED CELL DISTRIBUTION WIDTH 15.7 % (11.5-14.5); WHITE BLOOD COUNT 2.8 x10^3/uL (4.0-11.0)
[2017-12-30 11:18] LABS: ALBUMIN 2.8 g/dL (3.4-5.0); ALBUMIN/GLOBULIN RATIO 0.8 (1.0-1.7); CALCIUM 8.6 mg/dL (8.5-10.1); CREATININE 0.6 mg/dL (0.6-1.0); GFR 100.6; MAGNESIUM 2.1 mg/dL (1.8-2.4); POTASSIUM 3.8 mmol/L (3.5-5.1); TOTAL BILIRUBIN 0.2 mg/dL (0.2-1.0); TOTAL PROTEIN 6.2 g/dL (6.4-8.2)
--- NOTE | 2017-12-30 11:26 | NUR ---
Pt is calm, cooperative, compliant and interactive. She is not aggressive, hallucinating or delusional. She is compliant with her medication and assessment. She interacts appropriately with peers and staff.
--- NOTE | 2017-12-30 13:45 | NUR ---
PATTI received a voicemail from pt son, Kaushik, requesting that send referrals to [facility] ([phone] for placement, as well as [facility] FAX and ask for Destiny. Pt son will contact PATTI if any other facilities are an option for placement.
[2017-12-30 15:55] VITALS: BP 97/59
--- NOTE | 2017-12-30 15:55 | RAD ---
EXAM: Right wrist, 3 views. HISTORY: Nontraumatic pain. COMPARISON: None. FINDINGS: 3 views of the right wrist are obtained. There is no fracture, dislocation or subluxation. There is suspected slight bone demineralization. IMPRESSION: No acute osseous finding. Electronically signed by: Susie Bran MD (12/30/2017 3:51 PM) [facility]
[2017-12-30] MEDS: ATORVASTATIN CALCIUM 10 MG TABLET. PO SCH (20:05)
[2017-12-30] MEDS: PHENobarbital 32.4 MG TABLET. PO SCH (20:06)
--- NOTE | 2017-12-30 20:55 | PDOC ---
Exam Note: David Note: Please also refer to the separate dictated note~for this date of service dictated separately.~Patient seen individually. Discussed the patient with Nursing staff reviewed the chart.~Reviewed interim history and current functioning. Reviewed vital signs,~Labs/ Radiology~and current medications noted below. Continue current treatment with the changes noted in the dictated addendum note Assessment: Vital Signs: Vital Signs Date Time Temp Pulse Resp B/P (MAP) Pulse Ox O2 Delivery O2 Flow Rate FiO2 12/30/17 15:55 97.8 70 16 97/59 (72) 95 12/30/17 06:40 Room Air I&O Intake and Output 12/30/17 07:00 Intake Total 360 ml Balance 360 ml Intake Oral 360 ml Labs: Laboratory Tests Test 12/30/17 10:55 White Blood Count 2.8 x10^3/uL (4.0-11.0) L Red Blood Count 3.72 x10^6/uL (3.50-5.40) Hemoglobin 12.0 g/dL (12.0-15.5) Hematocrit 35.8 % (36.0-47.0) L Mean Corpuscular Volume 96 fL (79-100) Mean Corpuscular Hemoglobin 32 pg (25-35) Mean Corpuscular Hemoglobin Concent 34 g/dL (31-37) Red Cell Distribution Width 15.7 % (11.5-14.5) H Platelet Count 161 x10^3/uL (140-400) Neutrophils (%) (Auto) 38 % (31-73) Lymphocytes (%) (Auto) 31 % (24-48) Monocytes (%) (Auto) 14 % (0-9) H Eosinophils (%) (Auto) 17 % (0-3) H Basophils (%) (Auto) 1 % (0-3) Neutrophils # (Auto) 1.0 x10^3uL (1.8-7.7) L Lymphocytes # (Auto) 0.8 x10^3/uL (1.0-4.8) L Monocytes # (Auto) 0.4 x10^3/uL (0.0-1.1) Eosinophils # (Auto) 0.5 x10^3/uL (0.0-0.7) Basophils # (Auto) 0.0 x10^3/uL (0.0-0.2) Sodium Level 141 mmol/L (136-145) Potassium Level 3.8 mmol/L (3.5-5.1) Chloride Level 105 mmol/L (98-107) Carbon Dioxide Level 36 mmol/L (21-32) H Anion Gap 0 (6-14) L Blood Urea Nitrogen 17 mg/dL (7-20) Creatinine 0.6 mg/dL (0.6-1.0) Estimated GFR (Cockcroft-Gault) 100.6 BUN/Creatinine Ratio 28 (6-20) H Glucose Level 91 mg/dL (70-99) Calcium Level 8.6 mg/dL (8.5-10.1) Magnesium Level 2.1 mg/dL (1.8-2.4) Total Bilirubin 0.2 mg/dL (0.2-1.0) Aspartate Amino Transferase (AST) 14 U/L (15-37) L Alanine Aminotransferase (ALT) 19 U/L (14-59) Alkaline Phosphatase 84 U/L (46-116) Total Protein 6.2 g/dL (6.4-8.2) L Albumin 2.8 g/dL (3.4-5.0) L Albumin/Globulin Ratio 0.8 (1.0-1.7) L Current Medications: Meds: Current Medications Acetaminophen (Tylenol) 650 mg PRN Q6HRS PRN PO PAIN / TEMP; Start 12/19/17 at 18:15 Multi-Ingredient Ointment (Analgesic [place]) 1 radha PRN QID PRN TP MUSCLE PAIN; Start 12/19/17 at 18:15 Al Hydroxide/Mg Hydroxide (Mylanta Plus Xs) 15 ml PRN AFTMEALHC PRN PO DYSPEPSIA; Start 12/19/17 at 18:15 Magnesium Hydroxide (Milk Of Magnesia) 2,400 mg PRN QHS PRN PO CONSTIPATION Last administered on 12/27/17at 07:48; Start 12/19/17 at 18:15 Acetaminophen (Tylenol) 650 mg PRN Q6HRS PRN PO PAIN / TEMP; Start 12/19/17 at 18:15; Status UNV Calcium Carbonate/ Glycine (Oscal) 500 mg BIDWMEALS PO Last administered on at 17:15; Start 12/20/17 at 08:00 Ceftriaxone Sodium (Rocephin) 1 gm DAILY16 IV ; Start 12/20/17 at 16:00; Status UNV Vitamin D (Vitamin D3) 1,000 unit DAILY PO Last administered on 12/30/17at 08:48 ; Start 12/20/17 at 09:00 Felbamate (Felbatol) 800 mg TID PO Last administered on 12/30/17at 20:07; Start 12/19/17 at 21:00 Ferrous Sulfate (Feosol) 325 mg BIDAFTMEAL PO Last administered on 12/30/17 17 :16; Start 12/20/17 at 09:00 Al Hydroxide/Mg Hydroxide (Mylanta Plus Xs) 15 ml PRN AFTMEALHC PRN PO DYSPEPSIA; Start 12/19/17 at 18:15; Status UNV Multi-Ingredient Ointment (Analgesic [place]) 1 radha PRN QID PRN TP MUSCLE PAIN; Start 12/19/17 at 18:15; Status UNV Senna/Docusate Sodium (Senna Plus) 1 tab PRN BID PRN PO CONSTIPATION; Start 12/19/17 at 18:15 Tramadol HCl (Ultram) 50 mg PRN Q6HRS PRN PO PAIN Last administered on at 07:43; Start 12/19/17 at 18:15 Atorvastatin Calcium (Lipitor) 5 mg QHS PO Last administered on 12/30/17at 20:05 ; Start 12/19/17 at 21:00 Bisacodyl (Dulcolax Supp) 10 mg PRN DAILY PRN [place] CONSTIPATION; Start 12/19/17 at 18:45 Divalproex Sodium (Depakote Sprinkles) 500 mg DAILY PO Last administered on at 08:43; Start 12/20/17 at 09:00 Divalproex Sodium (Depakote Sprinkles) 750 mg QHS PO Last administered on at 20:06; Start 12/19/17 at 21:00 Duloxetine HCl (Cymbalta) 60 mg DAILY PO Last administered on 12/30/17at 08:43; Start 12/20/17 at 09:00 Lacosamide (Vimpat) 200 mg BIDAFTMEAL PO Last administered on 12/30/17at 17:16; Start 12/19/17 at 21:00 Lactobacillus Rhamnosus (Culturelle) 1 cap BID PO Last administered on at 20:08; Start 12/19/17 at 21:00 Levetiracetam (Keppra) 750 mg BIDAFTMEAL PO Last administered on 12/30/17at 17: 16; Start 12/20/17 at 09:00 Levothyroxine Sodium (Synthroid) 50 mcg DAILY06 PO Last administered on at 06:45; Start 12/20/17 at 06:00 Non-Formulary Medication (Magnesium Hydroxide (Milk Of Magnesia)) 2,400 mg PRN QHS PRN PO CONSTIPATION; Start 12/19/17 at 18:15; Status UNV Magnesium Oxide (Magnesium Oxide) 400 mg TID PO Last administered on 12/30/17at 20:08; Start 12/19/17 at 21:00 Pantoprazole Sodium (Protonix) 40 mg BIDBFRMEAL PO Last administered on at 17:15; Start 12/20/17 at 07:30 Phenobarbital (Luminal) 64.8 mg QHS PO Last administered on 12/30/17at 20:06; Start 12/19/17 at 21:00 Polyethylene Glycol (miraLAX) 17 gm PRN DAILY PRN PO CONSTIPATION; Start at 09:00 Quetiapine Fumarate (SEROquel) 12.5 mg QID PO Last administered on 12/30/17at 20 :06; Start 12/19/17 at 21:00 Trazodone HCl (Desyrel) 50 mg PRN QHS PRN PO INSOMNIA, MAY REPEAT X1 Last administered on 12/20/17at 23:32; Start 12/19/17 at 19:00 Ceftriaxone Sodium (Rocephin) 1 gm Q24H IVP Last administered on 12/21/17at 15:55 ; Start 12/20/17 at 16:00; Stop 12/22/17 at 12:32; Status DC Sodium Chloride (Normal Saline Flush) 10 ml BID IV Last administered on at 07:46; Start 12/19/17 at 21:00; Stop 12/26/17 at 12:06; Status DC Sodium Chloride (Normal Saline Flush) 10 ml PRN DAILY PRN IV SEE COMMENTS Last administered on 12/22/17at 17:12; Start 12/19/17 at 19:45; Stop 12/26/17 at 12:06; Status DC Ceftriaxone Sodium (Rocephin) 1 gm Q24H IVP Last administered on 12/24/17at 17: 38; Start 12/22/17 at 16:00; Stop 12/25/17 at 16:38; Status DC Ceftriaxone Sodium (Rocephin Im) 1 gm Q24H ONCE IM ; Start 12/25/17 at 16:45; Stop 12/25/17 at 16:45; Status DC Ceftriaxone Sodium (Rocephin Im) 1 gm Q24H IM Last administered on 12/26/17at 16 :28; Start 12/25/17 at 16:45; Stop 12/26/17 at 21:00; Status DC Active Scripts Active Reported Ceftriaxone (Ceftriaxone Sodium) 1 Gm Vial 1 Gm IM/IV DAILY16 Levothyroxine Sodium 50 Mcg Tablet 50 Mcg PO DAILYAC Depakote Sprinkle (Divalproex Sodium) 125 Mg Cap.sprink 750 Mg PO QHS Trazodone Hcl 50 Mg Tablet 50 Mg PO PRN QHS PRN Analgesic [place] (Methyl Salicylate/Menthol) 28 Gm Oint...g. 1 Radha TP PRN QID PRN Mag-Al Plus Xs Suspension (Mag Hydrox/Al Hydrox/Simeth) 30 Ml Oral.susp 15 Ml PO PRN AFTMEALHC PRN Culturelle (Lactobacillus Rhamnosus Gg) 1 Each Capsule 1 Cap PO BID Vimpat (Lacosamide) 200 Mg Tablet 200 Mg PO BIDAFTMEAL Cymbalta (Duloxetine Hcl) 60 Mg Capsule.dr 60 Mg PO DAILY Divalproex Sodium 500 Mg Tablet.dr 500 Mg PO DAILY Oyster Shell Calcium (Calcium Carbonate) 500 Mg Tablet 1 Tab PO BIDWMEALS Miralax (Polyethylene Glycol 3350) 17 Gm Powd.pack 17 Gm PO PRN DAILY PRN Milk Of Magnesia (Magnesium Hydroxide) 2,400 Mg/10 Ml Oral.susp 2,400 Mg PO PRN QHS PRN Atorvastatin Calcium 10 Mg Tablet 5 Mg PO QHS Seroquel (Quetiapine Fumarate) 25 Mg Tablet 12.5 Mg PO [id number] Pantoprazole Sodium 40 Mg Tablet.dr 40 Mg PO BIDBFRMEAL Vitamin D3 (Cholecalciferol (Vitamin D3)) 1,000 Unit Tablet 1,000 Unit PO DAILY Phenobarbital 64.8 Mg Tablet 64.8 Mg PO HS Magnesium Oxide 400 Mg Tablet 400 Mg PO TID Tylenol (Acetaminophen) 325 Mg Tablet 650 Mg PO PRN Q6HRS PRN Tramadol Hcl (Tramadol HCl) 50 Mg Tablet 50 Mg PO PRN Q6HRS PRN Senna-S Tablet (Sennosides/Docusate Sodium) 1 Each Tablet 1 Tab PO PRN BID PRN Keppra (Levetiracetam) 250 Mg Tablet 750 Mg PO BIDAFTMEAL Ferrous Sulfate 325 Mg Tablet 325 Mg PO BIDAFTMEAL Bisacodyl 10 Mg Supp.rect 10 Mg RC PRN DAILY PRN Felbamate 400 Mg Tablet 800 Mg PO TID I have reviewed the current psychotropics carefully including drug interactions. Risk benefit ratio favors no change other than as noted in my dictated progress note. Diagnosis: Problems: (1) Functional diarrhea (2) urinary tract infection (3) Left hip arthroplasty (4) Severe major depression with psychotic features (5) Adjustment disorder with depressed mood (6) Bipolar affective, mixed (7) Impulse control disorder (8) Dementia, vascular, with delusions (9) Dementia, vascular, with depression HARVEY QUIJANO MD Dec 30, 2017 20:55
--- NOTE | 2017-12-30 21:37 | NUR ---
Behavior Intervention Response and Plan: BIRP Note: Behavior: Assumed Care of patient, patient located in Day Room at shift change. Patient exhibited the following behavior Calm, Compliant, Cooperative. Brief assessment on rounds of vital signs, medication needs, lab studies, and pain. Treatment plan problems . Intervention: Patient assessed and the following interventions initiated safety checks 15 Minute Checks Personal Alarm in place , Cognitive Assessment , Head to toe Assessment. Response: After interactions and interventions patient responded in the following manner, Calm , Appropriate ,Compliant. Continue to assess behaviors and condition will continue to monitor throughout the shift as needed. Patient educated on ADL's, and hand hygiene. Plan: Continue to monitor Master Treatment Plan for patient's progress toward short term goals of Decreased Agitation, Decreased Anxiety, alf goals to return to previous living setting vs placement. Continue to assess patient for changes in above assessment. Monitor for medication needs, pain, and safety concerns. Hourly rounding performed to ensure safe environment.
--- NOTE | 2017-12-31 00:09 | PN ---
DATE: 12/27/2017 This is a late entry for 12/27/2017 covers elements not covered in my initial note. SUBJECTIVE: I met with the patient in the evening. The patient slept 8-1/4 hours previous night. She is somewhat withdrawn, resistive to medications, but redirects. REVIEW OF SYSTEMS: Ambulation impaired, in wheelchair. No CV, , pulmonary, eye system symptoms on review. MENTAL STATUS EXAM: Oriented to herself and situation. Speech moderate latency, often responses monosyllabic. Abstraction fair, computation impaired, language function intact, attention span short. Mood and affect withdrawn. LABORATORY DATA: Reviewed. IMPRESSION: Unchanged from initial note. PLAN: No change from initial note. MAN Luis QUIJANO MD DR: LOYD/eboni JOB#: [id number] / [id number]
--- NOTE | 2017-12-31 00:59 | PN ---
DATE: 12/29/2017 This is a late entry for 12/29/2017 covers elements not covered in my initial note. SUBJECTIVE: I met with the patient in the evening. The patient slept 8-1/4 hours previous night. The patient remains withdrawn, not aggressive. REVIEW OF SYSTEMS: Ambulation impaired. No CV, , pulmonary, eye system symptoms on review. MENTAL STATUS EXAM: Oriented to herself and situation. Speech coherent, often responses monosyllabic, low in rate and rhythm, low in volume. Abstraction fair, computation impaired, language function intact. No suicidal or homicidal ideation. LABORATORY DATA: Reviewed. IMPRESSION: Unchanged from initial note. PLAN: No change from initial note. HARVEY QUIJANO MD DR: LOYD/eboni JOB#: [id number] / [id number]
--- NOTE | 2017-12-31 01:00 | PN ---
DATE: 12/28/2017 PSYCHIATRIC PROGRESS NOTE This is a late entry 12/28/2017, covers elements not covered in my initial note. SUBJECTIVE: I met with the patient in the evening. Overall, the patient had a good day. She is withdrawn, not very verbal or interactive, but not aggressive. REVIEW OF SYSTEMS: Ambulation impaired, in wheelchair. No CV, , pulmonary, eye system symptoms on review. MENTAL STATUS EXAM: Oriented to herself and situation. Speech is coherent, low in rate and rhythm, low in volume, often responses monosyllabic. Abstraction fair, computation impaired, language function intact, attention span short. Mood and affect remain somewhat withdrawn. LABORATORY DATA: Reviewed. IMPRESSION: Unchanged from initial note. PLAN: No change from initial note. Maintain Cymbalta, Depakote, Seroquel. She is also on phenobarb and trazodone p.r.n. for insomnia. HARVEY QUIJANO MD DR: LOYD/eboni JOB#: [id number] / [id number]
[2017-12-31 06:03] VITALS: BP 96/69
[2017-12-31] MEDS: LEVOTHYROXINE 50 MCG TABLET PO SCH (06:26)
[2017-12-31] MEDS: DULoxetine HCL 60 MG CAPSULE.DR PO SCH (07:35)
[2017-12-31] MEDS: levETIRAcetam 250 MG TABLET PO SCH ×2 (07:35→17:42)
[2017-12-31] MEDS: FELBAMATE 400 MG TABLET PO SCH ×3 (07:36→19:59)
[2017-12-31] MEDS: FERROUS SULFATE 325 MG TABLET. PO SCH ×2 (07:36→17:40)
[2017-12-31] MEDS: CALCIUM CARBONATE 500 MG TABLET PO SCH ×2 (07:36→17:39)
[2017-12-31] MEDS: DIVALPROEX 125 MG CAP.SPRINK PO SCH ×2 (07:36→19:58)
[2017-12-31] MEDS: LACTOBACILLUS RHAMNOSUS GG 1 CAPSULE. PO SCH ×2 (07:36→19:58)
[2017-12-31] MEDS: CHOLECALCIFEROL (VITAMIN D3) 1,000 UNIT TABLET PO SCH (07:36)
[2017-12-31] MEDS: QUEtiapine 25 MG TABLET. PO SCH ×4 (07:36→19:58)
[2017-12-31] MEDS: MAGNESIUM OXIDE 400 MG TABLET PO SCH ×3 (07:36→19:58)
[2017-12-31] MEDS: PANTOPRAZOLE 40 MG TABLET. PO SCH ×2 (07:36→16:52)
[2017-12-31] MEDS: LACOSAMIDE 50 MG TABLET PO SCH ×2 (07:37→17:42)
--- NOTE | 2017-12-31 09:10 | NUR ---
PATTI received a call from Kaushik, pt son, who questioned SW as to how she would recommend finding placement. SW explained that pt son would have to see them, as reviews online can't answer his questions about the facility. Pt son agreed as he realized that some facilities have two or three facets of care. Pt son thinks that he will be able to fly in later this week and requested that pt discharge on Saturday so that he can get things together over the weekend and be here to help pt transfer to a new facility. PATTI okayed discharge for Saturday; but will continue to run that by the team.
--- NOTE | 2017-12-31 14:56 | NUR ---
SW returned call to pt son, Kaushik and discussed an update on placement and referrals. SW reports that she has sent the referrals and will continue to send others as pt son requests or SW finds that takes Medicaid. No other concerns are noted at this time.
[2017-12-31 15:55] VITALS: BP 98/61
[2017-12-31] MEDS: ATORVASTATIN CALCIUM 10 MG TABLET. PO SCH (19:58)
[2017-12-31] MEDS: PHENobarbital 32.4 MG TABLET. PO SCH (19:59)
--- NOTE | 2017-12-31 20:54 | PDOC ---
Exam Note: David Note: Please also refer to the separate dictated note~for this date of service dictated separately.~Patient seen individually. Discussed the patient with Nursing staff reviewed the chart.~Reviewed interim history and current functioning. Reviewed vital signs,~Labs/ Radiology~and current medications noted below. Continue current treatment with the changes noted in the dictated addendum note Assessment: Vital Signs: Vital Signs Date Time Temp Pulse Resp B/P (MAP) Pulse Ox O2 Delivery O2 Flow Rate FiO2 12/31/17 15:55 97.8 74 16 98/61 (73) 95 12/30/17 06:40 Room Air I&O Intake and Output 12/31/17 07:00 Intake Total 840 ml Balance 840 ml Intake Oral 840 ml # Voids 1 Current Medications: Meds: Current Medications Acetaminophen (Tylenol) 650 mg PRN Q6HRS PRN PO PAIN / TEMP; Start 12/19/17 at 18:15 Multi-Ingredient Ointment (Analgesic [place]) 1 radha PRN QID PRN TP MUSCLE PAIN; Start 12/19/17 at 18:15 Al Hydroxide/Mg Hydroxide (Mylanta Plus Xs) 15 ml PRN AFTMEALHC PRN PO DYSPEPSIA; Start 12/19/17 at 18:15 Magnesium Hydroxide (Milk Of Magnesia) 2,400 mg PRN QHS PRN PO CONSTIPATION Last administered on 12/27/17at 07:48; Start 12/19/17 at 18:15 Acetaminophen (Tylenol) 650 mg PRN Q6HRS PRN PO PAIN / TEMP; Start 12/19/17 at 18:15; Status UNV Calcium Carbonate/ Glycine (Oscal) 500 mg BIDWMEALS PO Last administered on at 17:39; Start 12/20/17 at 08:00 Ceftriaxone Sodium (Rocephin) 1 gm DAILY16 IV ; Start 12/20/17 at 16:00; Status UNV Vitamin D (Vitamin D3) 1,000 unit DAILY PO Last administered on 12/31/17at 07:36 ; Start 12/20/17 at 09:00 Felbamate (Felbatol) 800 mg TID PO Last administered on 12/31/17at 19:59; Start 12/19/17 at 21:00 Ferrous Sulfate (Feosol) 325 mg BIDAFTMEAL PO Last administered on 12/31/17at 17 :40; Start 12/20/17 at 09:00 Al Hydroxide/Mg Hydroxide (Mylanta Plus Xs) 15 ml PRN AFTMEALHC PRN PO DYSPEPSIA; Start 12/19/17 at 18:15; Status UNV Multi-Ingredient Ointment (Analgesic [place]) 1 radha PRN QID PRN TP MUSCLE PAIN; Start 12/19/17 at 18:15; Status UNV Senna/Docusate Sodium (Senna Plus) 1 tab PRN BID PRN PO CONSTIPATION Last administered on 12/31/17at 18:33; Start 12/19/17 at 18:15 Tramadol HCl (Ultram) 50 mg PRN Q6HRS PRN PO PAIN Last administered on at 07:43; Start 12/19/17 at 18:15 Atorvastatin Calcium (Lipitor) 5 mg QHS PO Last administered on 12/31/17 19:58 ; Start 12/19/17 at 21:00 Bisacodyl (Dulcolax Supp) 10 mg PRN DAILY PRN [place] CONSTIPATION; Start 12/19/17 at 18:45 Divalproex Sodium (Depakote Sprinkles) 500 mg DAILY PO Last administered on at 07:36; Start 12/20/17 at 09:00 Divalproex Sodium (Depakote Sprinkles) 750 mg QHS PO Last administered on at 19:58; Start 12/19/17 at 21:00 Duloxetine HCl (Cymbalta) 60 mg DAILY PO Last administered on 12/31/17at 07:35; Start 12/20/17 at 09:00 Lacosamide (Vimpat) 200 mg BIDAFTMEAL PO Last administered on 12/31/17at 17:42; Start 12/19/17 at 21:00 Lactobacillus Rhamnosus (Culturelle) 1 cap BID PO Last administered on at 19:58; Start 12/19/17 at 21:00 Levetiracetam (Keppra) 750 mg BIDAFTMEAL PO Last administered on 12/31/17at 17: 42; Start 12/20/17 at 09:00 Levothyroxine Sodium (Synthroid) 50 mcg DAILY06 PO Last administered on at 06:26; Start 12/20/17 at 06:00 Non-Formulary Medication (Magnesium Hydroxide (Milk Of Magnesia)) 2,400 mg PRN QHS PRN PO CONSTIPATION; Start 12/19/17 at 18:15; Status UNV Magnesium Oxide (Magnesium Oxide) 400 mg TID PO Last administered on 12/31/17 19:58; Start 12/19/17 at 21:00 Pantoprazole Sodium (Protonix) 40 mg BIDBFRMEAL PO Last administered on at 16:52; Start 12/20/17 at 07:30 Phenobarbital (Luminal) 64.8 mg QHS PO Last administered on 12/31/17 19:59; Start 12/19/17 at 21:00 Polyethylene Glycol (miraLAX) 17 gm PRN DAILY PRN PO CONSTIPATION; Start at 09:00 Quetiapine Fumarate (SEROquel) 12.5 mg QID PO Last administered on 12/31/17at 19 :58; Start 12/19/17 at 21:00 Trazodone HCl (Desyrel) 50 mg PRN QHS PRN PO INSOMNIA, MAY REPEAT X1 Last administered on 12/20/17at 23:32; Start 12/19/17 at 19:00 Ceftriaxone Sodium (Rocephin) 1 gm Q24H IVP Last administered on 12/21/17 15:55 ; Start 12/20/17 at 16:00; Stop 12/22/17 at 12:32; Status DC Sodium Chloride (Normal Saline Flush) 10 ml BID IV Last administered on at 07:46; Start 12/19/17 at 21:00; Stop 12/26/17 at 12:06; Status DC Sodium Chloride (Normal Saline Flush) 10 ml PRN DAILY PRN IV SEE COMMENTS Last administered on 12/22/17 17:12; Start 12/19/17 at 19:45; Stop 12/26/17 at 12:06; Status DC Ceftriaxone Sodium (Rocephin) 1 gm Q24H IVP Last administered on 12/24/17at 17: 38; Start 12/22/17 at 16:00; Stop 12/25/17 at 16:38; Status DC Ceftriaxone Sodium (Rocephin Im) 1 gm Q24H ONCE IM ; Start 12/25/17 at 16:45; Stop 12/25/17 at 16:45; Status DC Ceftriaxone Sodium (Rocephin Im) 1 gm Q24H IM Last administered on 12/26/17at 16 :28; Start 12/25/17 at 16:45; Stop 12/26/17 at 21:00; Status DC Active Scripts Active Reported Ceftriaxone (Ceftriaxone Sodium) 1 Gm Vial 1 Gm IM/IV DAILY16 Levothyroxine Sodium 50 Mcg Tablet 50 Mcg PO DAILYAC Depakote Sprinkle (Divalproex Sodium) 125 Mg Cap.sprink 750 Mg PO QHS Trazodone Hcl 50 Mg Tablet 50 Mg PO PRN QHS PRN Analgesic [place] (Methyl Salicylate/Menthol) 28 Gm Oint...g. 1 Radha TP PRN QID PRN Mag-Al Plus Xs Suspension (Mag Hydrox/Al Hydrox/Simeth) 30 Ml Oral.susp 15 Ml PO PRN AFTMEALHC PRN Culturelle (Lactobacillus Rhamnosus Gg) 1 Each Capsule 1 Cap PO BID Vimpat (Lacosamide) 200 Mg Tablet 200 Mg PO BIDAFTMEAL Cymbalta (Duloxetine Hcl) 60 Mg Capsule.dr 60 Mg PO DAILY Divalproex Sodium 500 Mg Tablet.dr 500 Mg PO DAILY Oyster Shell Calcium (Calcium Carbonate) 500 Mg Tablet 1 Tab PO BIDWMEALS Miralax (Polyethylene Glycol 3350) 17 Gm Powd.pack 17 Gm PO PRN DAILY PRN Milk Of Magnesia (Magnesium Hydroxide) 2,400 Mg/10 Ml Oral.susp 2,400 Mg PO PRN QHS PRN Atorvastatin Calcium 10 Mg Tablet 5 Mg PO QHS Seroquel (Quetiapine Fumarate) 25 Mg Tablet 12.5 Mg PO [id number] Pantoprazole Sodium 40 Mg Tablet.dr 40 Mg PO BIDBFRMEAL Vitamin D3 (Cholecalciferol (Vitamin D3)) 1,000 Unit Tablet 1,000 Unit PO DAILY Phenobarbital 64.8 Mg Tablet 64.8 Mg PO HS Magnesium Oxide 400 Mg Tablet 400 Mg PO TID Tylenol (Acetaminophen) 325 Mg Tablet 650 Mg PO PRN Q6HRS PRN Tramadol Hcl (Tramadol HCl) 50 Mg Tablet 50 Mg PO PRN Q6HRS PRN Senna-S Tablet (Sennosides/Docusate Sodium) 1 Each Tablet 1 Tab PO PRN BID PRN Keppra (Levetiracetam) 250 Mg Tablet 750 Mg PO BIDAFTMEAL Ferrous Sulfate 325 Mg Tablet 325 Mg PO BIDAFTMEAL Bisacodyl 10 Mg Supp.rect 10 Mg RC PRN DAILY PRN Felbamate 400 Mg Tablet 800 Mg PO TID I have reviewed the current psychotropics carefully including drug interactions. Risk benefit ratio favors no change other than as noted in my dictated progress note. Diagnosis: Problems: (1) Functional diarrhea (2) urinary tract infection (3) Left hip arthroplasty (4) Severe major depression with psychotic features (5) Adjustment disorder with depressed mood (6) Bipolar affective, mixed (7) Impulse control disorder (8) Dementia, vascular, with delusions (9) Dementia, vascular, with depression HARVEY QUIJANO MD Dec 31, 2017 20:54
--- NOTE | 2017-12-31 21:59 | NUR ---
Behavior Intervention Response and Plan: BIRP Note: Behavior: Assumed Care of patient, patient located in Day Room at shift change. Patient exhibited the following behavior Calm, Cooperative, Appropriate. Brief assessment on rounds of vital signs, medication needs, lab studies, and pain. Treatment plan problems . Intervention: Patient assessed and the following interventions initiated safety checks 15 Minute Checks Personal Alarm in place , Cognitive Assessment , Head to toe Assessment. Response: After interactions and interventions patient responded in the following manner, Calm , Cooperative ,Compliant. Continue to assess behaviors and condition will continue to monitor throughout the shift as needed. Patient educated on ADL's, and hand hygiene. 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 Continue to assess patient for changes in above assessment. Monitor for medication needs, pain, and safety concerns. Hourly rounding performed to ensure safe environment.
--- NOTE | 2017-12-31 23:20 | PN ---
DATE: 12/30/2017 PSYCHIATRIC PROGRESS NOTE This is a late entry of 12/30/2017, covers elements not covered in my initial note. SUBJECTIVE: I met with the patient in the evening. The patient slept 6-1/2 hours previous night. She remains somewhat withdrawn, quiet, not aggressive. REVIEW OF SYSTEMS: Ambulation impaired, in wheelchair. No CV, , pulmonary, eye, ENT system symptoms on review. She is not very verbal. MENTAL STATUS EXAM: Oriented to herself and situation. Speech, low in rate and rhythm, low in volume, often responses monosyllabic. Abstraction fair, computation impaired, language function intact, attention span short. Mood and affect withdrawn, but much less aggressive, disruptive. No psychotic symptoms noted. Mood appears improved. LABORATORY DATA: Reviewed. IMPRESSION: Bipolar 1 disorder, mixed with psychotic features, in partial remission; cognitive disorder, unspecified. Rest unchanged. PLAN: No change from a psychiatric standpoint. HARVEY QUIJANO MD DR: LOYD/eboni JOB#: [id number] / [id number]
[2018-01-01] MEDS: LEVOTHYROXINE 50 MCG TABLET PO SCH (05:49)
[2018-01-01] MEDS: traMADol 50 MG TABLET PO PRN (05:49)
[2018-01-01 05:59] VITALS: BP 101/68
[2018-01-01] MEDS: LACOSAMIDE 50 MG TABLET PO SCH ×2 (07:36→18:21)
[2018-01-01] MEDS: LACTOBACILLUS RHAMNOSUS GG 1 CAPSULE. PO SCH ×2 (07:36→21:00)
[2018-01-01] MEDS: FELBAMATE 400 MG TABLET PO SCH ×3 (07:36→21:00)
[2018-01-01] MEDS: DIVALPROEX 125 MG CAP.SPRINK PO SCH ×2 (07:36→21:00)
[2018-01-01] MEDS: CHOLECALCIFEROL (VITAMIN D3) 1,000 UNIT TABLET PO SCH (07:37)
[2018-01-01] MEDS: levETIRAcetam 250 MG TABLET PO SCH ×2 (07:37→18:21)
[2018-01-01] MEDS: QUEtiapine 25 MG TABLET. PO SCH ×4 (07:37→21:00)
[2018-01-01] MEDS: MAGNESIUM OXIDE 400 MG TABLET PO SCH ×3 (07:37→21:00)
[2018-01-01] MEDS: PANTOPRAZOLE 40 MG TABLET. PO SCH ×2 (07:37→16:08)
[2018-01-01] MEDS: CALCIUM CARBONATE 500 MG TABLET PO SCH ×2 (07:37→16:08)
[2018-01-01] MEDS: DULoxetine HCL 60 MG CAPSULE.DR PO SCH (07:37)
[2018-01-01] MEDS: FERROUS SULFATE 325 MG TABLET. PO SCH ×2 (07:39→18:21)
[2018-01-01 16:57] VITALS: BP 95/65
[2018-01-01] MEDS: ATORVASTATIN CALCIUM 10 MG TABLET. PO SCH (21:00)
[2018-01-01] MEDS: PHENobarbital 32.4 MG TABLET. PO SCH (21:00)
--- NOTE | 2018-01-01 21:14 | PDOC ---
Exam Note: David Note: Please also refer to the separate dictated note~for this date of service dictated separately.~Patient seen individually. Discussed the patient with Nursing staff reviewed the chart.~Reviewed interim history and current functioning. Reviewed vital signs,~Labs/ Radiology~and current medications noted below. Continue current treatment with the changes noted in the dictated addendum note Assessment: Vital Signs: Vital Signs Date Time Temp Pulse Resp B/P (MAP) Pulse Ox O2 Delivery O2 Flow Rate FiO2 01/01/18 16:57 97.2 64 16 95/65 (75) 97 Room Air I&O Intake and Output 01/01/18 07:00 Intake Total 538 ml Balance 538 ml Intake Oral 538 ml Current Medications: Meds: Current Medications Acetaminophen (Tylenol) 650 mg PRN Q6HRS PRN PO PAIN / TEMP; Start 12/19/17 at 18:15 Multi-Ingredient Ointment (Analgesic [place]) 1 radha PRN QID PRN TP MUSCLE PAIN; Start 12/19/17 at 18:15 Al Hydroxide/Mg Hydroxide (Mylanta Plus Xs) 15 ml PRN AFTMEALHC PRN PO DYSPEPSIA; Start 12/19/17 at 18:15 Magnesium Hydroxide (Milk Of Magnesia) 2,400 mg PRN QHS PRN PO CONSTIPATION Last administered on 12/27/17at 07:48; Start 12/19/17 at 18:15 Acetaminophen (Tylenol) 650 mg PRN Q6HRS PRN PO PAIN / TEMP; Start 12/19/17 at 18:15; Status UNV Calcium Carbonate/ Glycine (Oscal) 500 mg BIDWMEALS PO Last administered on at 16:08; Start 12/20/17 at 08:00 Ceftriaxone Sodium (Rocephin) 1 gm DAILY16 IV ; Start 12/20/17 at 16:00; Status UNV Vitamin D (Vitamin D3) 1,000 unit DAILY PO Last administered on 01/01/18at 07:37 ; Start 12/20/17 at 09:00 Felbamate (Felbatol) 800 mg TID PO Last administered on 01/01/18at 16:10; Start 12/19/17 at 21:00 Ferrous Sulfate (Feosol) 325 mg BIDAFTMEAL PO Last administered on 01/01/18at 18 :21; Start 12/20/17 at 09:00 Al Hydroxide/Mg Hydroxide (Mylanta Plus Xs) 15 ml PRN AFTMEALHC PRN PO DYSPEPSIA; Start 12/19/17 at 18:15; Status UNV Multi-Ingredient Ointment (Analgesic [place]) 1 radha PRN QID PRN TP MUSCLE PAIN; Start 12/19/17 at 18:15; Status UNV Senna/Docusate Sodium (Senna Plus) 1 tab PRN BID PRN PO CONSTIPATION Last administered on 12/31/17at 18:33; Start 12/19/17 at 18:15 Tramadol HCl (Ultram) 50 mg PRN Q6HRS PRN PO PAIN Last administered on 05:49; Start 12/19/17 at 18:15 Atorvastatin Calcium (Lipitor) 5 mg QHS PO Last administered on 12/31/17 19:58 ; Start 12/19/17 at 21:00 Bisacodyl (Dulcolax Supp) 10 mg PRN DAILY PRN [place] CONSTIPATION; Start 12/19/17 at 18:45 Divalproex Sodium (Depakote Sprinkles) 500 mg DAILY PO Last administered on at 07:36; Start 12/20/17 at 09:00 Divalproex Sodium (Depakote Sprinkles) 750 mg QHS PO Last administered on 19:58; Start 12/19/17 at 21:00 Duloxetine HCl (Cymbalta) 60 mg DAILY PO Last administered on 01/01/18at 07:37; Start 12/20/17 at 09:00 Lacosamide (Vimpat) 200 mg BIDAFTMEAL PO Last administered on 01/01/18at 18:21; Start 12/19/17 at 21:00 Lactobacillus Rhamnosus (Culturelle) 1 cap BID PO Last administered on 07:36; Start 12/19/17 at 21:00 Levetiracetam (Keppra) 750 mg BIDAFTMEAL PO Last administered on 01/01/18 18: 21; Start 12/20/17 at 09:00 Levothyroxine Sodium (Synthroid) 50 mcg DAILY06 PO Last administered on 05:49; Start 12/20/17 at 06:00 Non-Formulary Medication (Magnesium Hydroxide (Milk Of Magnesia)) 2,400 mg PRN QHS PRN PO CONSTIPATION; Start 12/19/17 at 18:15; Status UNV Magnesium Oxide (Magnesium Oxide) 400 mg TID PO Last administered on 01/01/18at 16:08; Start 12/19/17 at 21:00 Pantoprazole Sodium (Protonix) 40 mg BIDBFRMEAL PO Last administered on at 16:08; Start 12/20/17 at 07:30 Phenobarbital (Luminal) 64.8 mg QHS PO Last administered on 12/31/17at 19:59; Start 12/19/17 at 21:00 Polyethylene Glycol (miraLAX) 17 gm PRN DAILY PRN PO CONSTIPATION; Start at 09:00 Quetiapine Fumarate (SEROquel) 12.5 mg QID PO Last administered on 01/01/18at 16 :08; Start 12/19/17 at 21:00 Trazodone HCl (Desyrel) 50 mg PRN QHS PRN PO INSOMNIA, MAY REPEAT X1 Last administered on 12/20/17at 23:32; Start 12/19/17 at 19:00 Ceftriaxone Sodium (Rocephin) 1 gm Q24H IVP Last administered on 12/21/17at 15:55 ; Start 12/20/17 at 16:00; Stop 12/22/17 at 12:32; Status DC Sodium Chloride (Normal Saline Flush) 10 ml BID IV Last administered on at 07:46; Start 12/19/17 at 21:00; Stop 12/26/17 at 12:06; Status DC Sodium Chloride (Normal Saline Flush) 10 ml PRN DAILY PRN IV SEE COMMENTS Last administered on 12/22/17at 17:12; Start 12/19/17 at 19:45; Stop 12/26/17 at 12:06; Status DC Ceftriaxone Sodium (Rocephin) 1 gm Q24H IVP Last administered on 12/24/17at 17: 38; Start 12/22/17 at 16:00; Stop 12/25/17 at 16:38; Status DC Ceftriaxone Sodium (Rocephin Im) 1 gm Q24H ONCE IM ; Start 12/25/17 at 16:45; Stop 12/25/17 at 16:45; Status DC Ceftriaxone Sodium (Rocephin Im) 1 gm Q24H IM Last administered on 12/26/17at 16 :28; Start 12/25/17 at 16:45; Stop 12/26/17 at 21:00; Status DC Active Scripts Active Reported Ceftriaxone (Ceftriaxone Sodium) 1 Gm Vial 1 Gm IM/IV DAILY16 Levothyroxine Sodium 50 Mcg Tablet 50 Mcg PO DAILYAC Depakote Sprinkle (Divalproex Sodium) 125 Mg Cap.sprink 750 Mg PO QHS Trazodone Hcl 50 Mg Tablet 50 Mg PO PRN QHS PRN Analgesic [place] (Methyl Salicylate/Menthol) 28 Gm Oint...g. 1 Radha TP PRN QID PRN Mag-Al Plus Xs Suspension (Mag Hydrox/Al Hydrox/Simeth) 30 Ml Oral.susp 15 Ml PO PRN AFTMEALHC PRN Culturelle (Lactobacillus Rhamnosus Gg) 1 Each Capsule 1 Cap PO BID Vimpat (Lacosamide) 200 Mg Tablet 200 Mg PO BIDAFTMEAL Cymbalta (Duloxetine Hcl) 60 Mg Capsule.dr 60 Mg PO DAILY Divalproex Sodium 500 Mg Tablet.dr 500 Mg PO DAILY Oyster Shell Calcium (Calcium Carbonate) 500 Mg Tablet 1 Tab PO BIDWMEALS Miralax (Polyethylene Glycol 3350) 17 Gm Powd.pack 17 Gm PO PRN DAILY PRN Milk Of Magnesia (Magnesium Hydroxide) 2,400 Mg/10 Ml Oral.susp 2,400 Mg PO PRN QHS PRN Atorvastatin Calcium 10 Mg Tablet 5 Mg PO QHS Seroquel (Quetiapine Fumarate) 25 Mg Tablet 12.5 Mg PO [id number] Pantoprazole Sodium 40 Mg Tablet.dr 40 Mg PO BIDBFRMEAL Vitamin D3 (Cholecalciferol (Vitamin D3)) 1,000 Unit Tablet 1,000 Unit PO DAILY Phenobarbital 64.8 Mg Tablet 64.8 Mg PO HS Magnesium Oxide 400 Mg Tablet 400 Mg PO TID Tylenol (Acetaminophen) 325 Mg Tablet 650 Mg PO PRN Q6HRS PRN Tramadol Hcl (Tramadol HCl) 50 Mg Tablet 50 Mg PO PRN Q6HRS PRN Senna-S Tablet (Sennosides/Docusate Sodium) 1 Each Tablet 1 Tab PO PRN BID PRN Keppra (Levetiracetam) 250 Mg Tablet 750 Mg PO BIDAFTMEAL Ferrous Sulfate 325 Mg Tablet 325 Mg PO BIDAFTMEAL Bisacodyl 10 Mg Supp.rect 10 Mg RC PRN DAILY PRN Felbamate 400 Mg Tablet 800 Mg PO TID I have reviewed the current psychotropics carefully including drug interactions. Risk benefit ratio favors no change other than as noted in my dictated progress note. Diagnosis: Problems: (1) Functional diarrhea (2) urinary tract infection (3) Left hip arthroplasty (4) Severe major depression with psychotic features (5) Adjustment disorder with depressed mood (6) Bipolar affective, mixed (7) Impulse control disorder (8) Dementia, vascular, with delusions (9) Dementia, vascular, with depression HARVEY QUIJANO MD Jan 01, 2018 21:14
--- NOTE | 2018-01-01 22:02 | NUR ---
Behavior Intervention Response and Plan: BIRP Note: Behavior: Assumed Care of patient, patient located in at shift change. Patient exhibited the following behavior Calm, Social, Cooperative. Brief assessment on rounds of vital signs, medication needs, lab studies, and pain. Treatment plan problems . Intervention: Patient assessed and the following interventions initiated safety checks 15 Minute Checks Personal Alarm in place , Cognitive Assessment , Head to toe Assessment. Response: After interactions and interventions patient responded in the following manner, Calm , Compliant ,Cooperative. Continue to assess behaviors and condition will continue to monitor throughout the shift as needed. Patient educated on ADL's, and hand hygiene. Plan: Continue to monitor Master Treatment Plan for patient's progress toward short term goals of Decreased Agitation, Improved Mood, salvage determiner goals to return to previous living setting vs placement. Continue to assess patient for changes in above assessment. Monitor for medication needs, pain, and safety concerns. Hourly rounding performed to ensure safe environment.
--- NOTE | 2018-01-01 22:41 | PN ---
DATE: 12/31/2017 This is a late entry for 12/31/2017 covers elements not covered in my initial note. SUBJECTIVE: I met with the patient in the evening. The patient slept 7 hours previous night. She has been doing better agitated at night up all day. We rolled herself around in her wheelchair all around the unit. REVIEW OF SYSTEMS: Ambulation impaired, in wheelchair. No CV, , pulmonary, eye, ENT system symptoms on review. MENTAL STATUS EXAM: Oriented to herself and situation. Speech moderate latency, often responses monosyllabic, low in rate and rhythm, low in volume. Abstraction fair, computation impaired, language function intact, attention span short. Mood and affect still depressed, but improved. No suicidal ideation, not aggressive. LABORATORY DATA: Reviewed. IMPRESSION: Bipolar 1 disorder, mixed versus depressed with psychotic features in partial remission; cognitive disorder, unspecified; anxiety disorder, unspecified. PLAN: Continue psychotropics mentioned in my initial note. Seroquel, Depakote, Cymbalta, and she is also on phenobarbital for seizures, trazodone for insomnia. MAN Luis QUIJANO MD DR: LOYD/eboni JOB#: [id number] / [id number]
[2018-01-02] MEDS: LEVOTHYROXINE 50 MCG TABLET PO SCH (05:47)
[2018-01-02 05:55] VITALS: BP 115/87
[2018-01-02] MEDS: PANTOPRAZOLE 40 MG TABLET. PO SCH ×2 (08:39→17:17)
[2018-01-02] MEDS: CALCIUM CARBONATE 500 MG TABLET PO SCH ×2 (08:40→17:17)
[2018-01-02] MEDS: DULoxetine HCL 60 MG CAPSULE.DR PO SCH (08:41)
[2018-01-02] MEDS: LACTOBACILLUS RHAMNOSUS GG 1 CAPSULE. PO SCH (08:41)
[2018-01-02] MEDS: levETIRAcetam 250 MG TABLET PO SCH ×2 (08:42→17:18)
[2018-01-02] MEDS: FELBAMATE 400 MG TABLET PO SCH ×3 (08:42→20:01)
[2018-01-02] MEDS: MAGNESIUM OXIDE 400 MG TABLET PO SCH ×3 (08:42→20:00)
[2018-01-02] MEDS: DIVALPROEX 125 MG CAP.SPRINK PO SCH ×2 (08:42→20:00)
[2018-01-02] MEDS: QUEtiapine 25 MG TABLET. PO SCH ×4 (08:43→19:58)
[2018-01-02] MEDS: LACOSAMIDE 50 MG TABLET PO SCH ×2 (08:44→17:18)
[2018-01-02] MEDS: CHOLECALCIFEROL (VITAMIN D3) 1,000 UNIT TABLET PO SCH (08:44)
[2018-01-02] MEDS: FERROUS SULFATE 325 MG TABLET. PO SCH ×2 (08:45→17:18)
--- NOTE | 2018-01-02 09:10 | NUR ---
WEEKLY ACTIVITY THERAPY NOTE Date of Admission: 12/19/2017 Date of AT Assessment: 12/23/2017 Goal aimed: to increase stimulation and socialization Initial goal: Pt. will participate in at least one group per day. Weekly progress towards goal: achieved Group participation level: varies, needs assistance Behaviors observed: slower to respond, sleeping more, appears to be losing interest in favored activities, stares more often, missing glasses most of the week, quiet, needs prompting and cues and time to process Plan: no change to goal
--- NOTE | 2018-01-02 12:37 | NUR ---
Pt is calm, cooperative, compliant and interactive. She is not aggressive, hallucinating or delusional. She is compliant with her medication and assessment. She interacts appropriately with peers and staff. She does like to spend time in her room doing crossword puzzles.
--- NOTE | 2018-01-02 15:00 | NUR ---
WEEKLY UPDATE: SW has faxed referrals for pt to be accepted into a new facility; however, those facilities have declined admission. Pt is out of her room more and able to participate in some groups. Calm, cooperative, and medication compliant. PATTI will continue to work with pt son in finding an appropriate facility for pt next week.
[2018-01-02 16:53] VITALS: BP 109/73
[2018-01-02] MEDS: ATORVASTATIN CALCIUM 10 MG TABLET. PO SCH (19:59)
[2018-01-02] MEDS: PHENobarbital 32.4 MG TABLET. PO SCH (20:00)
--- NOTE | 2018-01-02 20:47 | PDOC ---
Exam Note: David Note: Please also refer to the separate dictated note~for this date of service dictated separately.~Patient seen individually. Discussed the patient with Nursing staff reviewed the chart.~Reviewed interim history and current functioning. Reviewed vital signs,~Labs/ Radiology~and current medications noted below. Continue current treatment with the changes noted in the dictated addendum note Assessment: Vital Signs: Vital Signs Date Time Temp Pulse Resp B/P (MAP) Pulse Ox O2 Delivery O2 Flow Rate FiO2 01/02/18 16:53 97.4 62 18 109/73 (85) 100 01/01/18 16:57 Room Air I&O Intake and Output 01/02/18 07:00 Intake Total 480 ml Balance 480 ml Intake Oral 480 ml Current Medications: Meds: Current Medications Acetaminophen (Tylenol) 650 mg PRN Q6HRS PRN PO PAIN / TEMP; Start 12/19/17 at 18:15 Multi-Ingredient Ointment (Analgesic [place]) 1 radha PRN QID PRN TP MUSCLE PAIN; Start 12/19/17 at 18:15 Al Hydroxide/Mg Hydroxide (Mylanta Plus Xs) 15 ml PRN AFTMEALHC PRN PO DYSPEPSIA; Start 12/19/17 at 18:15 Magnesium Hydroxide (Milk Of Magnesia) 2,400 mg PRN QHS PRN PO CONSTIPATION Last administered on 12/27/17at 07:48; Start 12/19/17 at 18:15 Acetaminophen (Tylenol) 650 mg PRN Q6HRS PRN PO PAIN / TEMP; Start 12/19/17 at 18:15; Status UNV Calcium Carbonate/ Glycine (Oscal) 500 mg BIDWMEALS PO Last administered on at 17:17; Start 12/20/17 at 08:00 Ceftriaxone Sodium (Rocephin) 1 gm DAILY16 IV ; Start 12/20/17 at 16:00; Status UNV Vitamin D (Vitamin D3) 1,000 unit DAILY PO Last administered on 01/02/18at 08:44 ; Start 12/20/17 at 09:00 Felbamate (Felbatol) 800 mg TID PO Last administered on 01/02/18at 20:01; Start 12/19/17 at 21:00 Ferrous Sulfate (Feosol) 325 mg BIDAFTMEAL PO Last administered on 01/02/18at 17 :18; Start 12/20/17 at 09:00 Al Hydroxide/Mg Hydroxide (Mylanta Plus Xs) 15 ml PRN AFTMEALHC PRN PO DYSPEPSIA; Start 12/19/17 at 18:15; Status UNV Multi-Ingredient Ointment (Analgesic [place]) 1 radha PRN QID PRN TP MUSCLE PAIN; Start 12/19/17 at 18:15; Status UNV Senna/Docusate Sodium (Senna Plus) 1 tab PRN BID PRN PO CONSTIPATION Last administered on 12/31/17at 18:33; Start 12/19/17 at 18:15 Tramadol HCl (Ultram) 50 mg PRN Q6HRS PRN PO PAIN Last administered on at 05:49; Start 12/19/17 at 18:15 Atorvastatin Calcium (Lipitor) 5 mg QHS PO Last administered on 01/02/18at 19:59 ; Start 12/19/17 at 21:00 Bisacodyl (Dulcolax Supp) 10 mg PRN DAILY PRN [place] CONSTIPATION; Start 12/19/17 at 18:45 Divalproex Sodium (Depakote Sprinkles) 500 mg DAILY PO Last administered on at 08:42; Start 12/20/17 at 09:00 Divalproex Sodium (Depakote Sprinkles) 750 mg QHS PO Last administered on at 20:00; Start 12/19/17 at 21:00 Duloxetine HCl (Cymbalta) 60 mg DAILY PO Last administered on 01/02/18at 08:41; Start 12/20/17 at 09:00 Lacosamide (Vimpat) 200 mg BIDAFTMEAL PO Last administered on 01/02/18 17:18; Start 12/19/17 at 21:00 Lactobacillus Rhamnosus (Culturelle) 1 cap BID PO Last administered on at 08:41; Start 12/19/17 at 21:00; Stop 01/02/18 at 17:14; Status DC Levetiracetam (Keppra) 750 mg BIDAFTMEAL PO Last administered on 01/02/18at 17: 18; Start 12/20/17 at 09:00 Levothyroxine Sodium (Synthroid) 50 mcg DAILY06 PO Last administered on 05:47; Start 12/20/17 at 06:00 Non-Formulary Medication (Magnesium Hydroxide (Milk Of Magnesia)) 2,400 mg PRN QHS PRN PO CONSTIPATION; Start 12/19/17 at 18:15; Status UNV Magnesium Oxide (Magnesium Oxide) 400 mg TID PO Last administered on 01/02/18 20:00; Start 12/19/17 at 21:00 Pantoprazole Sodium (Protonix) 40 mg BIDBFRMEAL PO Last administered on 17:17; Start 12/20/17 at 07:30 Phenobarbital (Luminal) 64.8 mg QHS PO Last administered on 01/02/18 20:00; Start 12/19/17 at 21:00 Polyethylene Glycol (miraLAX) 17 gm PRN DAILY PRN PO CONSTIPATION; Start at 09:00 Quetiapine Fumarate (SEROquel) 12.5 mg QID PO Last administered on 01/02/18 19 :58; Start 12/19/17 at 21:00 Trazodone HCl (Desyrel) 50 mg PRN QHS PRN PO INSOMNIA, MAY REPEAT X1 Last administered on 12/20/17at 23:32; Start 12/19/17 at 19:00 Ceftriaxone Sodium (Rocephin) 1 gm Q24H IVP Last administered on 12/21/17 15:55 ; Start 12/20/17 at 16:00; Stop 12/22/17 at 12:32; Status DC Sodium Chloride (Normal Saline Flush) 10 ml BID IV Last administered on 07:46; Start 12/19/17 at 21:00; Stop 12/26/17 at 12:06; Status DC Sodium Chloride (Normal Saline Flush) 10 ml PRN DAILY PRN IV SEE COMMENTS Last administered on 12/22/17 17:12; Start 12/19/17 at 19:45; Stop 12/26/17 at 12:06; Status DC Ceftriaxone Sodium (Rocephin) 1 gm Q24H IVP Last administered on 12/24/17 17: 38; Start 12/22/17 at 16:00; Stop 12/25/17 at 16:38; Status DC Ceftriaxone Sodium (Rocephin Im) 1 gm Q24H ONCE IM ; Start 12/25/17 at 16:45; Stop 12/25/17 at 16:45; Status DC Ceftriaxone Sodium (Rocephin Im) 1 gm Q24H IM Last administered on 12/26/17at 16 :28; Start 12/25/17 at 16:45; Stop 12/26/17 at 21:00; Status DC Active Scripts Active Reported Ceftriaxone (Ceftriaxone Sodium) 1 Gm Vial 1 Gm IM/IV DAILY16 Levothyroxine Sodium 50 Mcg Tablet 50 Mcg PO DAILYAC Depakote Sprinkle (Divalproex Sodium) 125 Mg Cap.sprink 750 Mg PO QHS Trazodone Hcl 50 Mg Tablet 50 Mg PO PRN QHS PRN Analgesic [place] (Methyl Salicylate/Menthol) 28 Gm Oint...g. 1 Radha TP PRN QID PRN Mag-Al Plus Xs Suspension (Mag Hydrox/Al Hydrox/Simeth) 30 Ml Oral.susp 15 Ml PO PRN AFTMEALHC PRN Culturelle (Lactobacillus Rhamnosus Gg) 1 Each Capsule 1 Cap PO BID Vimpat (Lacosamide) 200 Mg Tablet 200 Mg PO BIDAFTMEAL Cymbalta (Duloxetine Hcl) 60 Mg Capsule.dr 60 Mg PO DAILY Divalproex Sodium 500 Mg Tablet.dr 500 Mg PO DAILY Oyster Shell Calcium (Calcium Carbonate) 500 Mg Tablet 1 Tab PO BIDWMEALS Miralax (Polyethylene Glycol 3350) 17 Gm Powd.pack 17 Gm PO PRN DAILY PRN Milk Of Magnesia (Magnesium Hydroxide) 2,400 Mg/10 Ml Oral.susp 2,400 Mg PO PRN QHS PRN Atorvastatin Calcium 10 Mg Tablet 5 Mg PO QHS Seroquel (Quetiapine Fumarate) 25 Mg Tablet 12.5 Mg PO [id number] Pantoprazole Sodium 40 Mg Tablet.dr 40 Mg PO BIDBFRMEAL Vitamin D3 (Cholecalciferol (Vitamin D3)) 1,000 Unit Tablet 1,000 Unit PO DAILY Phenobarbital 64.8 Mg Tablet 64.8 Mg PO HS Magnesium Oxide 400 Mg Tablet 400 Mg PO TID Tylenol (Acetaminophen) 325 Mg Tablet 650 Mg PO PRN Q6HRS PRN Tramadol Hcl (Tramadol HCl) 50 Mg Tablet 50 Mg PO PRN Q6HRS PRN Senna-S Tablet (Sennosides/Docusate Sodium) 1 Each Tablet 1 Tab PO PRN BID PRN Keppra (Levetiracetam) 250 Mg Tablet 750 Mg PO BIDAFTMEAL Ferrous Sulfate 325 Mg Tablet 325 Mg PO BIDAFTMEAL Bisacodyl 10 Mg Supp.rect 10 Mg RC PRN DAILY PRN Felbamate 400 Mg Tablet 800 Mg PO TID I have reviewed the current psychotropics carefully including drug interactions. Risk benefit ratio favors no change other than as noted in my dictated progress note. Diagnosis: Problems: (1) Functional diarrhea (2) urinary tract infection (3) Left hip arthroplasty (4) Severe major depression with psychotic features (5) Adjustment disorder with depressed mood (6) Bipolar affective, mixed (7) Impulse control disorder (8) Dementia, vascular, with delusions (9) Dementia, vascular, with depression HARVEY QUIJANO MD Jan 02, 2018 20:47
--- NOTE | 2018-01-03 01:54 | NUR ---
Behavior Intervention Response and Plan: BIRP Note: Behavior: Assumed Care of patient, patient located in Patient Room at shift change. Patient exhibited the following behavior Calm, Withdrawn, Social. Brief assessment on rounds of vital signs, medication needs, lab studies, and pain. Treatment plan problems 1 and 2. Intervention: Patient assessed and the following interventions initiated safety checks 15 Minute Checks Cognitive Assessment , Head to toe Assessment , Medications. Response: After interactions and interventions patient responded in the following manner, Calm , Compliant ,Cooperative. Continue to assess behaviors and condition will continue to monitor throughout the shift as needed. Patient educated on ADL's, and hand hygiene. Plan: Continue to monitor Master Treatment Plan for patient's progress toward short term goals of Decreased Agitation, Decreased Aggression, jail goals to return to previous living setting vs placement. Continue to assess patient for changes in above assessment. Monitor for medication needs, pain, and safety concerns. Hourly rounding performed to ensure safe environment.
[2018-01-03] MEDS: LEVOTHYROXINE 50 MCG TABLET PO SCH (05:22)
[2018-01-03 06:27] VITALS: BP 102/57
[2018-01-03] MEDS: LACOSAMIDE 50 MG TABLET PO SCH ×2 (09:48→17:08)
[2018-01-03] MEDS: DIVALPROEX 125 MG CAP.SPRINK PO SCH ×2 (09:48→19:45)
[2018-01-03] MEDS: QUEtiapine 25 MG TABLET. PO SCH ×4 (09:49→19:46)
[2018-01-03] MEDS: FERROUS SULFATE 325 MG TABLET. PO SCH ×2 (09:49→17:07)
[2018-01-03] MEDS: FELBAMATE 400 MG TABLET PO SCH ×3 (09:50→19:46)
[2018-01-03] MEDS: PANTOPRAZOLE 40 MG TABLET. PO SCH ×2 (09:50→17:08)
[2018-01-03] MEDS: MAGNESIUM OXIDE 400 MG TABLET PO SCH ×3 (09:50→19:45)
[2018-01-03] MEDS: CALCIUM CARBONATE 500 MG TABLET PO SCH ×2 (09:50→17:08)
[2018-01-03] MEDS: DULoxetine HCL 60 MG CAPSULE.DR PO SCH (09:50)
[2018-01-03] MEDS: levETIRAcetam 250 MG TABLET PO SCH ×2 (09:50→17:08)
[2018-01-03] MEDS: CHOLECALCIFEROL (VITAMIN D3) 1,000 UNIT TABLET PO SCH (09:50)
[2018-01-03 16:54] VITALS: BP 100/60
--- NOTE | 2018-01-03 18:26 | NUR ---
Behavior Intervention Response and Plan: BIRP Note: Behavior: Assumed Care of patient, patient located in patient room at shift change. Patient exhibited the following behavior calm, disorganized, and cooperative. Brief assessment on rounds of vital signs, medication needs, lab studies, and pain. Treatment plan problems. Intervention: Patient assessed and the following interventions initiated: safety checks, 15-minute checks, cognitive assessment, head-to-toe assessment, and medications. Response: After interactions and interventions patient responded in the following manner: calm, cooperative, and compliant. Continue to assess behaviors and condition will continue to monitor throughout the shift as needed. Patient educated on ADL's and hand hygiene. Plan: Continue to monitor Master Treatment Plan for patient's progress toward short-term goals of improved mood and decreased anxiety. Long-term goals to return to previous living setting vs placement. Continue to assess patient for changes in above assessment. Monitor for medication needs, pain, and safety concerns. Hourly rounding performed to ensure safe environment.
[2018-01-03] MEDS: ATORVASTATIN CALCIUM 10 MG TABLET. PO SCH (19:45)
[2018-01-03] MEDS: PHENobarbital 32.4 MG TABLET. PO SCH (19:45)
--- NOTE | 2018-01-03 20:54 | PDOC ---
Exam Note: David Note: Please also refer to the separate dictated note~for this date of service dictated separately.~Patient seen individually. Discussed the patient with Nursing staff reviewed the chart.~Reviewed interim history and current functioning. Reviewed vital signs,~Labs/ Radiology~and current medications noted below. Continue current treatment with the changes noted in the dictated addendum note Assessment: Vital Signs: Vital Signs Date Time Temp Pulse Resp B/P (MAP) Pulse Ox O2 Delivery O2 Flow Rate FiO2 01/03/18 16:54 97.8 67 16 100/60 (73) 98 01/01/18 16:57 Room Air I&O Intake and Output 01/03/18 07:00 Intake Total 720 ml Balance 720 ml Intake Oral 720 ml # Voids 1 # Bowel Movements 1 Current Medications: Meds: Current Medications Acetaminophen (Tylenol) 650 mg PRN Q6HRS PRN PO PAIN / TEMP; Start 12/19/17 at 18:15 Multi-Ingredient Ointment (Analgesic [place]) 1 radha PRN QID PRN TP MUSCLE PAIN; Start 12/19/17 at 18:15 Al Hydroxide/Mg Hydroxide (Mylanta Plus Xs) 15 ml PRN AFTMEALHC PRN PO DYSPEPSIA; Start 12/19/17 at 18:15 Magnesium Hydroxide (Milk Of Magnesia) 2,400 mg PRN QHS PRN PO CONSTIPATION Last administered on 12/27/17at 07:48; Start 12/19/17 at 18:15 Acetaminophen (Tylenol) 650 mg PRN Q6HRS PRN PO PAIN / TEMP; Start 12/19/17 at 18:15; Status UNV Calcium Carbonate/ Glycine (Oscal) 500 mg BIDWMEALS PO Last administered on at 17:08; Start 12/20/17 at 08:00 Ceftriaxone Sodium (Rocephin) 1 gm DAILY16 IV ; Start 12/20/17 at 16:00; Status UNV Vitamin D (Vitamin D3) 1,000 unit DAILY PO Last administered on 01/03/18at 09:50 ; Start 12/20/17 at 09:00 Felbamate (Felbatol) 800 mg TID PO Last administered on 01/03/18at 19:46; Start 12/19/17 at 21:00 Ferrous Sulfate (Feosol) 325 mg BIDAFTMEAL PO Last administered on 01/03/18 17 :07; Start 12/20/17 at 09:00 Al Hydroxide/Mg Hydroxide (Mylanta Plus Xs) 15 ml PRN AFTMEALHC PRN PO DYSPEPSIA; Start 12/19/17 at 18:15; Status UNV Multi-Ingredient Ointment (Analgesic [place]) 1 radha PRN QID PRN TP MUSCLE PAIN; Start 12/19/17 at 18:15; Status UNV Senna/Docusate Sodium (Senna Plus) 1 tab PRN BID PRN PO CONSTIPATION Last administered on 12/31/17 18:33; Start 12/19/17 at 18:15 Tramadol HCl (Ultram) 50 mg PRN Q6HRS PRN PO PAIN Last administered on 05:49; Start 12/19/17 at 18:15 Atorvastatin Calcium (Lipitor) 5 mg QHS PO Last administered on 01/03/18 19:45 ; Start 12/19/17 at 21:00 Bisacodyl (Dulcolax Supp) 10 mg PRN DAILY PRN MS CONSTIPATION; Start 12/19/17 at 18:45 Divalproex Sodium (Depakote Sprinkles) 500 mg DAILY PO Last administered on 09:48; Start 12/20/17 at 09:00 Divalproex Sodium (Depakote Sprinkles) 750 mg QHS PO Last administered on 19:45; Start 12/19/17 at 21:00 Duloxetine HCl (Cymbalta) 60 mg DAILY PO Last administered on 01/03/18at 09:50; Start 12/20/17 at 09:00 Lacosamide (Vimpat) 200 mg BIDAFTMEAL PO Last administered on 01/03/18 17:08; Start 12/19/17 at 21:00 Lactobacillus Rhamnosus (Culturelle) 1 cap BID PO Last administered on 08:41; Start 12/19/17 at 21:00; Stop 01/02/18 at 17:14; Status DC Levetiracetam (Keppra) 750 mg BIDAFTMEAL PO Last administered on 01/03/18 17: 08; Start 12/20/17 at 09:00 Levothyroxine Sodium (Synthroid) 50 mcg DAILY06 PO Last administered on 05:22; Start 12/20/17 at 06:00 Non-Formulary Medication (Magnesium Hydroxide (Milk Of Magnesia)) 2,400 mg PRN QHS PRN PO CONSTIPATION; Start 12/19/17 at 18:15; Status UNV Magnesium Oxide (Magnesium Oxide) 400 mg TID PO Last administered on 01/03/18 19:45; Start 12/19/17 at 21:00 Pantoprazole Sodium (Protonix) 40 mg BIDBFRMEAL PO Last administered on 17:08; Start 12/20/17 at 07:30 Phenobarbital (Luminal) 64.8 mg QHS PO Last administered on 01/03/18 19:45; Start 12/19/17 at 21:00 Polyethylene Glycol (miraLAX) 17 gm PRN DAILY PRN PO CONSTIPATION; Start at 09:00 Quetiapine Fumarate (SEROquel) 12.5 mg QID PO Last administered on 01/03/18 19 :46; Start 12/19/17 at 21:00 Trazodone HCl (Desyrel) 50 mg PRN QHS PRN PO INSOMNIA, MAY REPEAT X1 Last administered on 12/20/17at 23:32; Start 12/19/17 at 19:00 Ceftriaxone Sodium (Rocephin) 1 gm Q24H IVP Last administered on 12/21/17 15:55 ; Start 12/20/17 at 16:00; Stop 12/22/17 at 12:32; Status DC Sodium Chloride (Normal Saline Flush) 10 ml BID IV Last administered on 07:46; Start 12/19/17 at 21:00; Stop 12/26/17 at 12:06; Status DC Sodium Chloride (Normal Saline Flush) 10 ml PRN DAILY PRN IV SEE COMMENTS Last administered on 12/22/17 17:12; Start 12/19/17 at 19:45; Stop 12/26/17 at 12:06; Status DC Ceftriaxone Sodium (Rocephin) 1 gm Q24H IVP Last administered on 12/24/17 17: 38; Start 12/22/17 at 16:00; Stop 12/25/17 at 16:38; Status DC Ceftriaxone Sodium (Rocephin Im) 1 gm Q24H ONCE IM ; Start 12/25/17 at 16:45; Stop 12/25/17 at 16:45; Status DC Ceftriaxone Sodium (Rocephin Im) 1 gm Q24H IM Last administered on 12/26/17at 16 :28; Start 12/25/17 at 16:45; Stop 12/26/17 at 21:00; Status DC Active Scripts Active Reported Ceftriaxone (Ceftriaxone Sodium) 1 Gm Vial 1 Gm IM/IV DAILY16 Levothyroxine Sodium 50 Mcg Tablet 50 Mcg PO DAILYAC Depakote Sprinkle (Divalproex Sodium) 125 Mg Cap.sprink 750 Mg PO QHS Trazodone Hcl 50 Mg Tablet 50 Mg PO PRN QHS PRN Analgesic [place] (Methyl Salicylate/Menthol) 28 Gm Oint...g. 1 Radha TP PRN QID PRN Mag-Al Plus Xs Suspension (Mag Hydrox/Al Hydrox/Simeth) 30 Ml Oral.susp 15 Ml PO PRN AFTMEALHC PRN Culturelle (Lactobacillus Rhamnosus Gg) 1 Each Capsule 1 Cap PO BID Vimpat (Lacosamide) 200 Mg Tablet 200 Mg PO BIDAFTMEAL Cymbalta (Duloxetine Hcl) 60 Mg Capsule.dr 60 Mg PO DAILY Divalproex Sodium 500 Mg Tablet.dr 500 Mg PO DAILY Oyster Shell Calcium (Calcium Carbonate) 500 Mg Tablet 1 Tab PO BIDWMEALS Miralax (Polyethylene Glycol 3350) 17 Gm Powd.pack 17 Gm PO PRN DAILY PRN Milk Of Magnesia (Magnesium Hydroxide) 2,400 Mg/10 Ml Oral.susp 2,400 Mg PO PRN QHS PRN Atorvastatin Calcium 10 Mg Tablet 5 Mg PO QHS Seroquel (Quetiapine Fumarate) 25 Mg Tablet 12.5 Mg PO [id number] Pantoprazole Sodium 40 Mg Tablet.dr 40 Mg PO BIDBFRMEAL Vitamin D3 (Cholecalciferol (Vitamin D3)) 1,000 Unit Tablet 1,000 Unit PO DAILY Phenobarbital 64.8 Mg Tablet 64.8 Mg PO HS Magnesium Oxide 400 Mg Tablet 400 Mg PO TID Tylenol (Acetaminophen) 325 Mg Tablet 650 Mg PO PRN Q6HRS PRN Tramadol Hcl (Tramadol HCl) 50 Mg Tablet 50 Mg PO PRN Q6HRS PRN Senna-S Tablet (Sennosides/Docusate Sodium) 1 Each Tablet 1 Tab PO PRN BID PRN Keppra (Levetiracetam) 250 Mg Tablet 750 Mg PO BIDAFTMEAL Ferrous Sulfate 325 Mg Tablet 325 Mg PO BIDAFTMEAL Bisacodyl 10 Mg Supp.rect 10 Mg RC PRN DAILY PRN Felbamate 400 Mg Tablet 800 Mg PO TID I have reviewed the current psychotropics carefully including drug interactions. Risk benefit ratio favors no change other than as noted in my dictated progress note. Diagnosis: Problems: (1) Functional diarrhea (2) urinary tract infection (3) Left hip arthroplasty (4) Severe major depression with psychotic features (5) Adjustment disorder with depressed mood (6) Bipolar affective, mixed (7) Impulse control disorder (8) Dementia, vascular, with delusions (9) Dementia, vascular, with depression HARVEY QUIJANO MD Jan 03, 2018 20:54
--- NOTE | 2018-01-03 23:46 | NUR ---
Behavior Intervention Response and Plan: BIRP Note: Behavior: Assumed Care of patient, patient located in Patient Room at shift change. Patient exhibited the following behavior Calm, Withdrawn, Cooperative. Brief assessment on rounds of vital signs, medication needs, lab studies, and pain. Treatment plan problems 1 and 2. Intervention: Patient assessed and the following interventions initiated safety checks 15 Minute Checks Cognitive Assessment , Head to toe Assessment , Medications. Response: After interactions and interventions patient responded in the following manner, Calm , Compliant ,Cooperative. Continue to assess behaviors and condition will continue to monitor throughout the shift as needed. Patient educated on ADL's, and hand hygiene. 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 Continue to assess patient for changes in above assessment. Monitor for medication needs, pain, and safety concerns. Hourly rounding performed to ensure safe environment.
--- NOTE | 2018-01-03 23:53 | PN ---
DATE: 01/01/2018 This is a late entry for 01/01/2018 covers elements not covered in my initial note. SUBJECTIVE: I met with the patient in the evening. The patient slept 8 hours previous evening, remains somewhat withdrawn, but not aggressive. Ambulation impaired, in wheelchair. REVIEW OF SYSTEMS: No CV, , pulmonary, eye system symptoms on review. MENTAL STATUS EXAM: Oriented to herself and situation. Speech moderate latency, often responses monosyllabic. Abstraction fair, computation impaired, language function intact, attention span short. Mood and affect withdrawn. IMPRESSION: Unchanged from initial note. PLAN: No change from initial note. MAN Luis QUIJANO MD DR: LOYD/eboni JOB#: [id number] / [id number]
--- NOTE | 2018-01-03 23:57 | PN ---
DATE: 01/02/2018 This is a late entry for 01/02/2018 covers elements not covered in my initial note. SUBJECTIVE: I met with the patient in the evening and also at some length with her sister, who was visiting her. The patient was staffed at a treatment team meeting with the entire team in the morning. Reviewed the progress, disposition plans. REVIEW OF SYSTEMS: Ambulation impaired, in wheelchair. No CV, , pulmonary, eye system symptoms on review. MENTAL STATUS EXAM: Oriented to herself and situation. Speech coherent, low in rate and rhythm, low in volume. Abstraction fair, computation impaired, language function intact. Mood and affect withdrawn, but improved. LABORATORY DATA: Reviewed. IMPRESSION: Unchanged from initial note. PLAN: No change from initial note. Discussed with social service staff about placement options and sister. MAN Luis QUIJANO MD DR: LOYD/eboni JOB#: [id number] / [id number]
[2018-01-04] MEDS: LEVOTHYROXINE 50 MCG TABLET PO SCH (05:42)
[2018-01-04 06:50] VITALS: BP 93/58
[2018-01-04] MEDS: PANTOPRAZOLE 40 MG TABLET. PO SCH ×2 (07:49→17:11)
[2018-01-04] MEDS: DULoxetine HCL 60 MG CAPSULE.DR PO SCH (07:49)
[2018-01-04] MEDS: CALCIUM CARBONATE 500 MG TABLET PO SCH ×2 (07:49→17:11)
[2018-01-04] MEDS: FERROUS SULFATE 325 MG TABLET. PO SCH ×2 (07:50→17:13)
[2018-01-04] MEDS: FELBAMATE 400 MG TABLET PO SCH ×3 (07:50→20:03)
[2018-01-04] MEDS: DIVALPROEX 125 MG CAP.SPRINK PO SCH ×2 (07:50→20:01)
[2018-01-04] MEDS: MAGNESIUM OXIDE 400 MG TABLET PO SCH ×3 (07:51→20:02)
[2018-01-04] MEDS: QUEtiapine 25 MG TABLET. PO SCH ×4 (07:51→20:02)
[2018-01-04] MEDS: levETIRAcetam 250 MG TABLET PO SCH ×2 (07:51→17:12)
[2018-01-04] MEDS: CHOLECALCIFEROL (VITAMIN D3) 1,000 UNIT TABLET PO SCH (07:51)
[2018-01-04] MEDS: LACOSAMIDE 50 MG TABLET PO SCH ×2 (07:57→17:12)
[2018-01-04 09:26] LABS: BASO % 1 % (0-3); EOS # 0.3 x10^3/uL (0.0-0.7); EOS % 10 % (0-3); HEMATOCRIT 35.4 % (36.0-47.0); HEMOGLOBIN 12.1 g/dL (12.0-15.5); LYMPH # 1.1 x10^3/uL (1.0-4.8); LYMPH % 32 % (24-48); MEAN CORPUSCULAR HEMOGLOBIN 33 pg (25-35); MEAN CORPUSCULAR HGB CONC 34 g/dL (31-37); MEAN CORPUSCULAR VOLUME 97 fL (79-100); MONO # 0.4 x10^3/uL (0.0-1.1); MONO % 13 % (0-9); NEUT # 1.5 x10^3uL (1.8-7.7); NEUT % 44 % (31-73); PLATELET COUNT 177 x10^3/uL (140-400); RED BLOOD COUNT 3.67 x10^6/uL (3.50-5.40); WHITE BLOOD COUNT 3.5 x10^3/uL (4.0-11.0)
[2018-01-04 09:34] LABS: ALBUMIN 2.9 g/dL (3.4-5.0); ALBUMIN/GLOBULIN RATIO 0.8 (1.0-1.7); CALCIUM 8.9 mg/dL (8.5-10.1); CREATININE 0.7 mg/dL (0.6-1.0); POTASSIUM 3.7 mmol/L (3.5-5.1); TOTAL BILIRUBIN 0.2 mg/dL (0.2-1.0); TOTAL PROTEIN 6.4 g/dL (6.4-8.2)
[2018-01-04 16:36] VITALS: BP 97/66
[2018-01-04] MEDS: PHENobarbital 32.4 MG TABLET. PO SCH (20:02)
[2018-01-04] MEDS: ATORVASTATIN CALCIUM 10 MG TABLET. PO SCH (20:03)
--- NOTE | 2018-01-04 23:06 | PDOC ---
Exam Note: David Note: Please also refer to the separate dictated note~for this date of service dictated separately.~Patient seen individually. Discussed the patient with Nursing staff reviewed the chart.~Reviewed interim history and current functioning. Reviewed vital signs,~Labs/ Radiology~and current medications noted below. Continue current treatment with the changes noted in the dictated addendum note Assessment: Vital Signs: Vital Signs Date Time Temp Pulse Resp B/P (MAP) Pulse Ox O2 Delivery O2 Flow Rate FiO2 01/04/18 16:36 97.5 66 18 97/66 (76) 98 NonRebreather Mask I&O Intake and Output 01/04/18 07:00 Intake Total 820 ml Balance 820 ml Intake Oral 820 ml Labs: Laboratory Tests Test 01/04/18 09:12 White Blood Count 3.5 x10^3/uL (4.0-11.0) L Red Blood Count 3.67 x10^6/uL (3.50-5.40) Hemoglobin 12.1 g/dL (12.0-15.5) Hematocrit 35.4 % (36.0-47.0) L Mean Corpuscular Volume 97 fL (79-100) Mean Corpuscular Hemoglobin 33 pg (25-35) Mean Corpuscular Hemoglobin Concent 34 g/dL (31-37) Red Cell Distribution Width 16.0 % (11.5-14.5) H Platelet Count 177 x10^3/uL (140-400) Neutrophils (%) (Auto) 44 % (31-73) Lymphocytes (%) (Auto) 32 % (24-48) Monocytes (%) (Auto) 13 % (0-9) H Eosinophils (%) (Auto) 10 % (0-3) H Basophils (%) (Auto) 1 % (0-3) Neutrophils # (Auto) 1.5 x10^3uL (1.8-7.7) L Lymphocytes # (Auto) 1.1 x10^3/uL (1.0-4.8) Monocytes # (Auto) 0.4 x10^3/uL (0.0-1.1) Eosinophils # (Auto) 0.3 x10^3/uL (0.0-0.7) Basophils # (Auto) 0.0 x10^3/uL (0.0-0.2) Sodium Level 141 mmol/L (136-145) Potassium Level 3.7 mmol/L (3.5-5.1) Chloride Level 104 mmol/L (98-107) Carbon Dioxide Level 33 mmol/L (21-32) H Anion Gap 4 (6-14) L Blood Urea Nitrogen 31 mg/dL (7-20) H Creatinine 0.7 mg/dL (0.6-1.0) Estimated GFR (Cockcroft-Gault) 84.0 BUN/Creatinine Ratio 44 (6-20) H Glucose Level 113 mg/dL (70-99) H Calcium Level 8.9 mg/dL (8.5-10.1) Total Bilirubin 0.2 mg/dL (0.2-1.0) Aspartate Amino Transferase (AST) 21 U/L (15-37) Alanine Aminotransferase (ALT) 28 U/L (14-59) Alkaline Phosphatase 107 U/L (46-116) Total Protein 6.4 g/dL (6.4-8.2) Albumin 2.9 g/dL (3.4-5.0) L Albumin/Globulin Ratio 0.8 (1.0-1.7) L Current Medications: Meds: Current Medications Acetaminophen (Tylenol) 650 mg PRN Q6HRS PRN PO PAIN / TEMP; Start 12/19/17 at 18:15 Multi-Ingredient Ointment (Analgesic [place]) 1 radha PRN QID PRN TP MUSCLE PAIN; Start 12/19/17 at 18:15 Al Hydroxide/Mg Hydroxide (Mylanta Plus Xs) 15 ml PRN AFTMEALHC PRN PO DYSPEPSIA; Start 12/19/17 at 18:15 Magnesium Hydroxide (Milk Of Magnesia) 2,400 mg PRN QHS PRN PO CONSTIPATION Last administered on 12/27/17at 07:48; Start 12/19/17 at 18:15 Acetaminophen (Tylenol) 650 mg PRN Q6HRS PRN PO PAIN / TEMP; Start 12/19/17 at 18:15; Status UNV Calcium Carbonate/ Glycine (Oscal) 500 mg BIDWMEALS PO Last administered on at 17:11; Start 12/20/17 at 08:00 Ceftriaxone Sodium (Rocephin) 1 gm DAILY16 IV ; Start 12/20/17 at 16:00; Status UNV Vitamin D (Vitamin D3) 1,000 unit DAILY PO Last administered on 01/04/18 07:51 ; Start 12/20/17 at 09:00 Felbamate (Felbatol) 800 mg TID PO Last administered on 01/04/18at 20:03; Start 12/19/17 at 21:00 Ferrous Sulfate (Feosol) 325 mg BIDAFTMEAL PO Last administered on 01/04/18at 17 :13; Start 12/20/17 at 09:00 Al Hydroxide/Mg Hydroxide (Mylanta Plus Xs) 15 ml PRN AFTMEALHC PRN PO DYSPEPSIA; Start 12/19/17 at 18:15; Status UNV Multi-Ingredient Ointment (Analgesic [place]) 1 radha PRN QID PRN TP MUSCLE PAIN; Start 12/19/17 at 18:15; Status UNV Senna/Docusate Sodium (Senna Plus) 1 tab PRN BID PRN PO CONSTIPATION Last administered on 12/31/17at 18:33; Start 12/19/17 at 18:15 Tramadol HCl (Ultram) 50 mg PRN Q6HRS PRN PO PAIN Last administered on at 05:49; Start 12/19/17 at 18:15 Atorvastatin Calcium (Lipitor) 5 mg QHS PO Last administered on 01/04/18at 20:03 ; Start 12/19/17 at 21:00 Bisacodyl (Dulcolax Supp) 10 mg PRN DAILY PRN MS CONSTIPATION; Start 12/19/17 at 18:45 Divalproex Sodium (Depakote Sprinkles) 500 mg DAILY PO Last administered on at 07:50; Start 12/20/17 at 09:00 Divalproex Sodium (Depakote Sprinkles) 750 mg QHS PO Last administered on 20:01; Start 12/19/17 at 21:00 Duloxetine HCl (Cymbalta) 60 mg DAILY PO Last administered on 01/04/18at 07:49; Start 12/20/17 at 09:00 Lacosamide (Vimpat) 200 mg BIDAFTMEAL PO Last administered on 01/04/18at 17:12; Start 12/19/17 at 21:00 Lactobacillus Rhamnosus (Culturelle) 1 cap BID PO Last administered on at 08:41; Start 12/19/17 at 21:00; Stop 01/02/18 at 17:14; Status DC Levetiracetam (Keppra) 750 mg BIDAFTMEAL PO Last administered on 01/04/18 17: 12; Start 12/20/17 at 09:00 Levothyroxine Sodium (Synthroid) 50 mcg DAILY06 PO Last administered on at 05:42; Start 12/20/17 at 06:00 Non-Formulary Medication (Magnesium Hydroxide (Milk Of Magnesia)) 2,400 mg PRN QHS PRN PO CONSTIPATION; Start 12/19/17 at 18:15; Status UNV Magnesium Oxide (Magnesium Oxide) 400 mg TID PO Last administered on 01/04/18at 20:02; Start 12/19/17 at 21:00 Pantoprazole Sodium (Protonix) 40 mg BIDBFRMEAL PO Last administered on at 17:11; Start 12/20/17 at 07:30 Phenobarbital (Luminal) 64.8 mg QHS PO Last administered on 01/04/18at 20:02; Start 12/19/17 at 21:00 Polyethylene Glycol (miraLAX) 17 gm PRN DAILY PRN PO CONSTIPATION; Start at 09:00 Quetiapine Fumarate (SEROquel) 12.5 mg QID PO Last administered on 01/04/18at 20 :02; Start 12/19/17 at 21:00 Trazodone HCl (Desyrel) 50 mg PRN QHS PRN PO INSOMNIA, MAY REPEAT X1 Last administered on 12/20/17at 23:32; Start 12/19/17 at 19:00 Ceftriaxone Sodium (Rocephin) 1 gm Q24H IVP Last administered on 12/21/17at 15:55 ; Start 12/20/17 at 16:00; Stop 12/22/17 at 12:32; Status DC Sodium Chloride (Normal Saline Flush) 10 ml BID IV Last administered on at 07:46; Start 12/19/17 at 21:00; Stop 12/26/17 at 12:06; Status DC Sodium Chloride (Normal Saline Flush) 10 ml PRN DAILY PRN IV SEE COMMENTS Last administered on 12/22/17at 17:12; Start 12/19/17 at 19:45; Stop 12/26/17 at 12:06; Status DC Ceftriaxone Sodium (Rocephin) 1 gm Q24H IVP Last administered on 12/24/17at 17: 38; Start 12/22/17 at 16:00; Stop 12/25/17 at 16:38; Status DC Ceftriaxone Sodium (Rocephin Im) 1 gm Q24H ONCE IM ; Start 12/25/17 at 16:45; Stop 12/25/17 at 16:45; Status DC Ceftriaxone Sodium (Rocephin Im) 1 gm Q24H IM Last administered on 12/26/17at 16 :28; Start 12/25/17 at 16:45; Stop 12/26/17 at 21:00; Status DC Active Scripts Active Reported Ceftriaxone (Ceftriaxone Sodium) 1 Gm Vial 1 Gm IM/IV DAILY16 Levothyroxine Sodium 50 Mcg Tablet 50 Mcg PO DAILYAC Depakote Sprinkle (Divalproex Sodium) 125 Mg Cap.sprink 750 Mg PO QHS Trazodone Hcl 50 Mg Tablet 50 Mg PO PRN QHS PRN Analgesic [place] (Methyl Salicylate/Menthol) 28 Gm Oint...g. 1 Radha TP PRN QID PRN Mag-Al Plus Xs Suspension (Mag Hydrox/Al Hydrox/Simeth) 30 Ml Oral.susp 15 Ml PO PRN AFTMEALHC PRN Culturelle (Lactobacillus Rhamnosus Gg) 1 Each Capsule 1 Cap PO BID Vimpat (Lacosamide) 200 Mg Tablet 200 Mg PO BIDAFTMEAL Cymbalta (Duloxetine Hcl) 60 Mg Capsule.dr 60 Mg PO DAILY Divalproex Sodium 500 Mg Tablet.dr 500 Mg PO DAILY Oyster Shell Calcium (Calcium Carbonate) 500 Mg Tablet 1 Tab PO BIDWMEALS Miralax (Polyethylene Glycol 3350) 17 Gm Powd.pack 17 Gm PO PRN DAILY PRN Milk Of Magnesia (Magnesium Hydroxide) 2,400 Mg/10 Ml Oral.susp 2,400 Mg PO PRN QHS PRN Atorvastatin Calcium 10 Mg Tablet 5 Mg PO QHS Seroquel (Quetiapine Fumarate) 25 Mg Tablet 12.5 Mg PO [id number] Pantoprazole Sodium 40 Mg Tablet.dr 40 Mg PO BIDBFRMEAL Vitamin D3 (Cholecalciferol (Vitamin D3)) 1,000 Unit Tablet 1,000 Unit PO DAILY Phenobarbital 64.8 Mg Tablet 64.8 Mg PO HS Magnesium Oxide 400 Mg Tablet 400 Mg PO TID Tylenol (Acetaminophen) 325 Mg Tablet 650 Mg PO PRN Q6HRS PRN Tramadol Hcl (Tramadol HCl) 50 Mg Tablet 50 Mg PO PRN Q6HRS PRN Senna-S Tablet (Sennosides/Docusate Sodium) 1 Each Tablet 1 Tab PO PRN BID PRN Keppra (Levetiracetam) 250 Mg Tablet 750 Mg PO BIDAFTMEAL Ferrous Sulfate 325 Mg Tablet 325 Mg PO BIDAFTMEAL Bisacodyl 10 Mg Supp.rect 10 Mg RC PRN DAILY PRN Felbamate 400 Mg Tablet 800 Mg PO TID I have reviewed the current psychotropics carefully including drug interactions. Risk benefit ratio favors no change other than as noted in my dictated progress note. Diagnosis: Problems: (1) Severe major depression with psychotic features (2) Adjustment disorder with depressed mood (3) Bipolar affective, mixed (4) Impulse control disorder (5) Dementia, vascular, with delusions (6) Dementia, vascular, with depression HARVEY QUIJANO MD Jan 04, 2018 23:06
--- NOTE | 2018-01-05 02:43 | NUR ---
Pt is sitting quietly in her w/c in her room at shift change. Pt A/O to self and place, confused as to time & situation. Pt calm, pleasant, & interactive. Pt cooperative w/meds, care, & assessment.
[2018-01-05] MEDS: LEVOTHYROXINE 50 MCG TABLET PO SCH (05:22)
[2018-01-05 06:27] VITALS: BP 99/60
[2018-01-05] MEDS: DULoxetine HCL 60 MG CAPSULE.DR PO SCH (08:34)
[2018-01-05] MEDS: PANTOPRAZOLE 40 MG TABLET. PO SCH ×2 (08:34→17:31)
[2018-01-05] MEDS: CALCIUM CARBONATE 500 MG TABLET PO SCH ×2 (08:34→17:31)
[2018-01-05] MEDS: DIVALPROEX 125 MG CAP.SPRINK PO SCH ×2 (08:34→21:46)
[2018-01-05] MEDS: FELBAMATE 400 MG TABLET PO SCH ×3 (08:35→21:47)
[2018-01-05] MEDS: CHOLECALCIFEROL (VITAMIN D3) 1,000 UNIT TABLET PO SCH (08:41)
[2018-01-05] MEDS: levETIRAcetam 250 MG TABLET PO SCH ×2 (08:41→17:31)
[2018-01-05] MEDS: MAGNESIUM OXIDE 400 MG TABLET PO SCH ×3 (08:41→21:45)
[2018-01-05] MEDS: QUEtiapine 25 MG TABLET. PO SCH ×4 (08:41→21:45)
[2018-01-05] MEDS: FERROUS SULFATE 325 MG TABLET. PO SCH ×2 (08:41→17:31)
[2018-01-05] MEDS: LACOSAMIDE 50 MG TABLET PO SCH ×2 (08:42→17:32)
--- NOTE | 2018-01-05 13:21 | NUR ---
Pt is calm, cooperative, compliant and interactive. She is not aggressive, hallucinating or delusional. She is compliant with her medication and assessment. She interacts appropriately with peers and staff and is social when she is out of her room.
[2018-01-05 16:45] VITALS: BP 94/74
--- NOTE | 2018-01-05 17:56 | PN ---
DATE: 01/03/2018 This is a late entry, 01/03/2018, covers the elements not covered in my initial note. SUBJECTIVE: I met with the patient in the evening. The patient slept 8 hours the previous night, compliant with medications, pleasant, somewhat withdrawn, and then speak very much. Verbal responses monosyllabic. REVIEW OF SYSTEMS: Ambulation impaired, in a wheelchair. No CV, , pulmonary, eye system symptoms on review. MENTAL STATUS EXAM: Oriented to herself and situation. Speech moderate to marked latency, low in rate and rhythm, low in volume. Abstraction fair. Computation able to do one step on serial 7, remembered 2/3 objects at 3 minutes. Speech, low in rate and rhythm, low in volume, often eye contact is poor. No psychotic symptoms, suicidal or homicidal ideation. Mood somewhat dysphoric, less psychotic. LABORATORY DATA: Reviewed. IMPRESSION: Unchanged from initial note. PLAN: No change from initial note. HARVEY QUIJANO MD DR: LOYD/eboni JOB#: [id number] / [id number]
--- NOTE | 2018-01-05 21:08 | PDOC ---
Exam Note: David Note: Please also refer to the separate dictated note~for this date of service dictated separately.~Patient seen individually. Discussed the patient with Nursing staff reviewed the chart.~Reviewed interim history and current functioning. Reviewed vital signs,~Labs/ Radiology~and current medications noted below. Continue current treatment with the changes noted in the dictated addendum note Assessment: Vital Signs: Vital Signs Date Time Temp Pulse Resp B/P (MAP) Pulse Ox O2 Delivery O2 Flow Rate FiO2 01/05/18 16:45 97.1 76 17 94/74 (81) 96 01/05/18 06:27 Room Air I&O Intake and Output 01/05/18 07:00 Intake Total 840 ml Balance 840 ml Intake Oral 840 ml Current Medications: Meds: Current Medications Acetaminophen (Tylenol) 650 mg PRN Q6HRS PRN PO PAIN / TEMP; Start 12/19/17 at 18:15 Multi-Ingredient Ointment (Analgesic [place]) 1 radha PRN QID PRN TP MUSCLE PAIN; Start 12/19/17 at 18:15 Al Hydroxide/Mg Hydroxide (Mylanta Plus Xs) 15 ml PRN AFTMEALHC PRN PO DYSPEPSIA; Start 12/19/17 at 18:15 Magnesium Hydroxide (Milk Of Magnesia) 2,400 mg PRN QHS PRN PO CONSTIPATION Last administered on 12/27/17at 07:48; Start 12/19/17 at 18:15 Acetaminophen (Tylenol) 650 mg PRN Q6HRS PRN PO PAIN / TEMP; Start 12/19/17 at 18:15; Status UNV Calcium Carbonate/ Glycine (Oscal) 500 mg BIDWMEALS PO Last administered on at 17:31; Start 12/20/17 at 08:00 Ceftriaxone Sodium (Rocephin) 1 gm DAILY16 IV ; Start 12/20/17 at 16:00; Status UNV Vitamin D (Vitamin D3) 1,000 unit DAILY PO Last administered on 01/05/18at 08:41 ; Start 12/20/17 at 09:00 Felbamate (Felbatol) 800 mg TID PO Last administered on 01/05/18at 14:18; Start 12/19/17 at 21:00 Ferrous Sulfate (Feosol) 325 mg BIDAFTMEAL PO Last administered on 01/05/18 17 :31; Start 12/20/17 at 09:00 Al Hydroxide/Mg Hydroxide (Mylanta Plus Xs) 15 ml PRN AFTMEALHC PRN PO DYSPEPSIA; Start 12/19/17 at 18:15; Status UNV Multi-Ingredient Ointment (Analgesic [place]) 1 radha PRN QID PRN TP MUSCLE PAIN; Start 12/19/17 at 18:15; Status UNV Senna/Docusate Sodium (Senna Plus) 1 tab PRN BID PRN PO CONSTIPATION Last administered on 12/31/17 18:33; Start 12/19/17 at 18:15 Tramadol HCl (Ultram) 50 mg PRN Q6HRS PRN PO PAIN Last administered on 05:49; Start 12/19/17 at 18:15 Atorvastatin Calcium (Lipitor) 5 mg QHS PO Last administered on 01/04/18 20:03 ; Start 12/19/17 at 21:00 Bisacodyl (Dulcolax Supp) 10 mg PRN DAILY PRN [place] CONSTIPATION; Start 12/19/17 at 18:45 Divalproex Sodium (Depakote Sprinkles) 500 mg DAILY PO Last administered on 08:34; Start 12/20/17 at 09:00 Divalproex Sodium (Depakote Sprinkles) 750 mg QHS PO Last administered on 20:01; Start 12/19/17 at 21:00 Duloxetine HCl (Cymbalta) 60 mg DAILY PO Last administered on 01/05/18 08:34; Start 12/20/17 at 09:00 Lacosamide (Vimpat) 200 mg BIDAFTMEAL PO Last administered on 01/05/18 17:32; Start 12/19/17 at 21:00 Lactobacillus Rhamnosus (Culturelle) 1 cap BID PO Last administered on 08:41; Start 12/19/17 at 21:00; Stop 01/02/18 at 17:14; Status DC Levetiracetam (Keppra) 750 mg BIDAFTMEAL PO Last administered on 01/05/18 17: 31; Start 12/20/17 at 09:00 Levothyroxine Sodium (Synthroid) 50 mcg DAILY06 PO Last administered on 05:22; Start 12/20/17 at 06:00 Non-Formulary Medication (Magnesium Hydroxide (Milk Of Magnesia)) 2,400 mg PRN QHS PRN PO CONSTIPATION; Start 12/19/17 at 18:15; Status UNV Magnesium Oxide (Magnesium Oxide) 400 mg TID PO Last administered on 01/05/18at 14:18; Start 12/19/17 at 21:00 Pantoprazole Sodium (Protonix) 40 mg BIDBFRMEAL PO Last administered on 17:31; Start 12/20/17 at 07:30 Phenobarbital (Luminal) 64.8 mg QHS PO Last administered on 01/04/18at 20:02; Start 12/19/17 at 21:00 Polyethylene Glycol (miraLAX) 17 gm PRN DAILY PRN PO CONSTIPATION; Start at 09:00 Quetiapine Fumarate (SEROquel) 12.5 mg QID PO Last administered on 01/05/18at 17 :31; Start 12/19/17 at 21:00 Trazodone HCl (Desyrel) 50 mg PRN QHS PRN PO INSOMNIA, MAY REPEAT X1 Last administered on 12/20/17at 23:32; Start 12/19/17 at 19:00 Ceftriaxone Sodium (Rocephin) 1 gm Q24H IVP Last administered on 12/21/17at 15:55 ; Start 12/20/17 at 16:00; Stop 12/22/17 at 12:32; Status DC Sodium Chloride (Normal Saline Flush) 10 ml BID IV Last administered on at 07:46; Start 12/19/17 at 21:00; Stop 12/26/17 at 12:06; Status DC Sodium Chloride (Normal Saline Flush) 10 ml PRN DAILY PRN IV SEE COMMENTS Last administered on 12/22/17at 17:12; Start 12/19/17 at 19:45; Stop 12/26/17 at 12:06; Status DC Ceftriaxone Sodium (Rocephin) 1 gm Q24H IVP Last administered on 12/24/17 17: 38; Start 12/22/17 at 16:00; Stop 12/25/17 at 16:38; Status DC Ceftriaxone Sodium (Rocephin Im) 1 gm Q24H ONCE IM ; Start 12/25/17 at 16:45; Stop 12/25/17 at 16:45; Status DC Ceftriaxone Sodium (Rocephin Im) 1 gm Q24H IM Last administered on 12/26/17at 16 :28; Start 12/25/17 at 16:45; Stop 12/26/17 at 21:00; Status DC Active Scripts Active Reported Ceftriaxone (Ceftriaxone Sodium) 1 Gm Vial 1 Gm IM/IV DAILY16 Levothyroxine Sodium 50 Mcg Tablet 50 Mcg PO DAILYAC Depakote Sprinkle (Divalproex Sodium) 125 Mg Cap.sprink 750 Mg PO QHS Trazodone Hcl 50 Mg Tablet 50 Mg PO PRN QHS PRN Analgesic [place] (Methyl Salicylate/Menthol) 28 Gm Oint...g. 1 Radha TP PRN QID PRN Mag-Al Plus Xs Suspension (Mag Hydrox/Al Hydrox/Simeth) 30 Ml Oral.susp 15 Ml PO PRN AFTMEALHC PRN Culturelle (Lactobacillus Rhamnosus Gg) 1 Each Capsule 1 Cap PO BID Vimpat (Lacosamide) 200 Mg Tablet 200 Mg PO BIDAFTMEAL Cymbalta (Duloxetine Hcl) 60 Mg Capsule.dr 60 Mg PO DAILY Divalproex Sodium 500 Mg Tablet.dr 500 Mg PO DAILY Oyster Shell Calcium (Calcium Carbonate) 500 Mg Tablet 1 Tab PO BIDWMEALS Miralax (Polyethylene Glycol 3350) 17 Gm Powd.pack 17 Gm PO PRN DAILY PRN Milk Of Magnesia (Magnesium Hydroxide) 2,400 Mg/10 Ml Oral.susp 2,400 Mg PO PRN QHS PRN Atorvastatin Calcium 10 Mg Tablet 5 Mg PO QHS Seroquel (Quetiapine Fumarate) 25 Mg Tablet 12.5 Mg PO [id number] Pantoprazole Sodium 40 Mg Tablet.dr 40 Mg PO BIDBFRMEAL Vitamin D3 (Cholecalciferol (Vitamin D3)) 1,000 Unit Tablet 1,000 Unit PO DAILY Phenobarbital 64.8 Mg Tablet 64.8 Mg PO HS Magnesium Oxide 400 Mg Tablet 400 Mg PO TID Tylenol (Acetaminophen) 325 Mg Tablet 650 Mg PO PRN Q6HRS PRN Tramadol Hcl (Tramadol HCl) 50 Mg Tablet 50 Mg PO PRN Q6HRS PRN Senna-S Tablet (Sennosides/Docusate Sodium) 1 Each Tablet 1 Tab PO PRN BID PRN Keppra (Levetiracetam) 250 Mg Tablet 750 Mg PO BIDAFTMEAL Ferrous Sulfate 325 Mg Tablet 325 Mg PO BIDAFTMEAL Bisacodyl 10 Mg Supp.rect 10 Mg RC PRN DAILY PRN Felbamate 400 Mg Tablet 800 Mg PO TID I have reviewed the current psychotropics carefully including drug interactions. Risk benefit ratio favors no change other than as noted in my dictated progress note. Diagnosis: Problems: (1) Functional diarrhea (2) urinary tract infection (3) Left hip arthroplasty (4) Severe major depression with psychotic features (5) Adjustment disorder with depressed mood (6) Bipolar affective, mixed (7) Impulse control disorder (8) Dementia, vascular, with delusions (9) Dementia, vascular, with depression HARVEY QUIJANO MD Jan 05, 2018 21:08
[2018-01-05] MEDS: ATORVASTATIN CALCIUM 10 MG TABLET. PO SCH (21:45)
[2018-01-05] MEDS: PHENobarbital 32.4 MG TABLET. PO SCH (21:45)
--- NOTE | 2018-01-06 00:32 | NUR ---
Patient in room awake in bed at [facility]. Compliant with medications, pleasant and calm. Patient stated that she needed another pillow and asked if her roommate would be coming in to bed soon. Oriented to self and situation.
[2018-01-06 06:09] VITALS: BP 94/50
[2018-01-06] MEDS: PANTOPRAZOLE 40 MG TABLET. PO SCH ×2 (06:16→16:31)
[2018-01-06] MEDS: LEVOTHYROXINE 50 MCG TABLET PO SCH (06:16)
[2018-01-06] MEDS: DIVALPROEX 125 MG CAP.SPRINK PO SCH ×2 (08:41→20:08)
[2018-01-06] MEDS: QUEtiapine 25 MG TABLET. PO SCH ×4 (08:41→20:09)
[2018-01-06] MEDS: levETIRAcetam 250 MG TABLET PO SCH ×2 (08:41→16:27)
[2018-01-06] MEDS: DULoxetine HCL 60 MG CAPSULE.DR PO SCH (08:41)
[2018-01-06] MEDS: FERROUS SULFATE 325 MG TABLET. PO SCH ×2 (08:42→16:32)
[2018-01-06] MEDS: CALCIUM CARBONATE 500 MG TABLET PO SCH ×2 (08:42→16:27)
[2018-01-06] MEDS: CHOLECALCIFEROL (VITAMIN D3) 1,000 UNIT TABLET PO SCH (08:42)
[2018-01-06] MEDS: MAGNESIUM OXIDE 400 MG TABLET PO SCH ×3 (08:42→20:09)
[2018-01-06] MEDS: FELBAMATE 400 MG TABLET PO SCH ×3 (08:43→20:08)
[2018-01-06] MEDS: LACOSAMIDE 50 MG TABLET PO SCH ×2 (12:45→16:31)
--- NOTE | 2018-01-06 13:43 | NUR ---
Behavior Intervention Response and Plan: BIRP Note: Behavior: Assumed Care of patient, patient located in Patient Room at shift change. Patient exhibited the following behavior Calm, Withdrawn, Cooperative. Brief assessment on rounds of vital signs, medication needs, lab studies, and pain. Treatment plan problems 1 and 2. Intervention: Patient assessed and the following interventions initiated safety checks 15 Minute Checks Cognitive Assessment , Head to toe Assessment , Medications. Response: After interactions and interventions patient responded in the following manner, Calm, withdrawn ,Cooperative. Continue to assess behaviors and condition will continue to monitor throughout the shift as needed. Patient educated on ADL's, and hand hygiene. 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 Continue to assess patient for changes in above assessment. Monitor for medication needs, pain, and safety concerns. Hourly rounding performed to ensure safe environment.
--- NOTE | 2018-01-06 16:09 | NUR ---
[facility] Social Work Discharge Planning Form Patient Name LUZMA BALDERAS Admit Date: 12/19/17 DISCHARGE PLAN Discharge Destination: [facility] Care Assessment: Completed prior to admission Level II Assessment: N/A Transportation: [facility] Special Instructions/Notes: Pt is to discharge to [facility]; please fax medication list to the facility in the morning. DISCHARGE TO FACILITY Facility: [facility] Address: [address] [place] [address] Contact Name: Marlee Thorne, Mosaic Tiler: Contact Name: PATTI Abraham PCP: Dr. Duffy Psychiatrist: None
[2018-01-06 16:14] VITALS: BP 93/60
[2018-01-06] MEDS: PHENobarbital 32.4 MG TABLET. PO SCH (20:09)
[2018-01-06] MEDS: ATORVASTATIN CALCIUM 10 MG TABLET. PO SCH (20:09)
--- NOTE | 2018-01-06 22:20 | NUR ---
Behavior Intervention Response and Plan: BIRP Note: Behavior: Assumed Care of patient, patient located in Day Room at shift change. Patient exhibited the following behavior Calm, Cooperative, Compliant. Brief assessment on rounds of vital signs, medication needs, lab studies, and pain. Treatment plan problems . Intervention: Patient assessed and the following interventions initiated safety checks 15 Minute Checks Personal Alarm in place , Cognitive Assessment , Head to toe Assessment. Response: After interactions and interventions patient responded in the following manner, Calm , Social ,Appropriate. Continue to assess behaviors and condition will continue to monitor throughout the shift as needed. Patient educated on ADL's, and hand hygiene. Plan: Continue to monitor Master Treatment Plan for patient's progress toward short term goals of Decreased Agitation, Improved Mood, fpc goals to return to previous living setting vs placement. Continue to assess patient for changes in above assessment. Monitor for medication needs, pain, and safety concerns. Hourly rounding performed to ensure safe environment.
--- NOTE | 2018-01-06 22:36 | PN ---
DATE: 01/04/2018 This is a late entry for 01/04/2018 covers elements not covered in my initial note. SUBJECTIVE: I met with the patient in the evening. The patient slept 8 hours previous night. She remains somewhat withdrawn, not aggressive. REVIEW OF SYSTEMS: Ambulation impaired. No CV, , pulmonary, eye system symptoms on review. MENTAL STATUS EXAM: Oriented to herself and situation. Speech moderate latency, often responses monosyllabic. No suicidal or homicidal ideation. IMPRESSION: Unchanged from initial note. PLAN: No change from initial note. MAN Luis QUIJANO MD DR: LOYD/eboni JOB#: [id number] / [id number]
--- NOTE | 2018-01-06 22:37 | PN ---
DATE: 01/05/2018 This is a late entry for 01/05/2018 covers elements not covered in my initial note. SUBJECTIVE: I met with the patient in the evening. The patient slept 8 hours previous night, did well at night and during the day. REVIEW OF SYSTEMS: Ambulation impaired, in wheelchair. No CV, , pulmonary, eye system symptoms on review. MENTAL STATUS EXAM: Oriented to herself and situation. Speech moderate latency, often responses monosyllabic. Mood and affect is withdrawn, but improved. No suicidal or homicidal ideation. IMPRESSION: Unchanged from initial note. PLAN: No change from initial note. MAN Luis QUIJANO MD DR: LOYD/eboni JOB#: [id number] / [id number]
--- NOTE | 2018-01-06 22:50 | PDOC ---
Exam Note: David Note: Please also refer to the separate dictated note~for this date of service dictated separately.~Patient seen individually. Discussed the patient with Nursing staff reviewed the chart.~Reviewed interim history and current functioning. Reviewed vital signs,~Labs/ Radiology~and current medications noted below. Continue current treatment with the changes noted in the dictated addendum note Assessment: Vital Signs: Vital Signs Date Time Temp Pulse Resp B/P (MAP) Pulse Ox O2 Delivery O2 Flow Rate FiO2 01/06/18 16:14 97.5 68 17 93/60 (71) 99 Room Air I&O Intake and Output 01/06/18 07:00 Intake Total 600 ml Balance 600 ml Intake Oral 600 ml Current Medications: Meds: Current Medications Acetaminophen (Tylenol) 650 mg PRN Q6HRS PRN PO PAIN / TEMP Last administered on 01/06/18at 16:51; Start 12/19/17 at 18:15 Multi-Ingredient Ointment (Analgesic [place]) 1 radha PRN QID PRN TP MUSCLE PAIN; Start 12/19/17 at 18:15 Al Hydroxide/Mg Hydroxide (Mylanta Plus Xs) 15 ml PRN AFTMEALHC PRN PO DYSPEPSIA; Start 12/19/17 at 18:15 Magnesium Hydroxide (Milk Of Magnesia) 2,400 mg PRN QHS PRN PO CONSTIPATION Last administered on 12/27/17at 07:48; Start 12/19/17 at 18:15 Acetaminophen (Tylenol) 650 mg PRN Q6HRS PRN PO PAIN / TEMP; Start 12/19/17 at 18:15; Status UNV Calcium Carbonate/ Glycine (Oscal) 500 mg BIDWMEALS PO Last administered on at 16:27; Start 12/20/17 at 08:00 Ceftriaxone Sodium (Rocephin) 1 gm DAILY16 IV ; Start 12/20/17 at 16:00; Status UNV Vitamin D (Vitamin D3) 1,000 unit DAILY PO Last administered on 01/06/18at 08:42 ; Start 12/20/17 at 09:00 Felbamate (Felbatol) 800 mg TID PO Last administered on 01/06/18at 20:08; Start 12/19/17 at 21:00 Ferrous Sulfate (Feosol) 325 mg BIDAFTMEAL PO Last administered on 01/06/18 16 :32; Start 12/20/17 at 09:00 Al Hydroxide/Mg Hydroxide (Mylanta Plus Xs) 15 ml PRN AFTMEALHC PRN PO DYSPEPSIA; Start 12/19/17 at 18:15; Status UNV Multi-Ingredient Ointment (Analgesic [place]) 1 radha PRN QID PRN TP MUSCLE PAIN; Start 12/19/17 at 18:15; Status UNV Senna/Docusate Sodium (Senna Plus) 1 tab PRN BID PRN PO CONSTIPATION Last administered on 12/31/17 18:33; Start 12/19/17 at 18:15 Tramadol HCl (Ultram) 50 mg PRN Q6HRS PRN PO PAIN Last administered on 05:49; Start 12/19/17 at 18:15 Atorvastatin Calcium (Lipitor) 5 mg QHS PO Last administered on 01/06/18 20:09 ; Start 12/19/17 at 21:00 Bisacodyl (Dulcolax Supp) 10 mg PRN DAILY PRN [place] CONSTIPATION; Start 12/19/17 at 18:45 Divalproex Sodium (Depakote Sprinkles) 500 mg DAILY PO Last administered on 08:41; Start 12/20/17 at 09:00 Divalproex Sodium (Depakote Sprinkles) 750 mg QHS PO Last administered on 20:08; Start 12/19/17 at 21:00 Duloxetine HCl (Cymbalta) 60 mg DAILY PO Last administered on 01/06/18 08:41; Start 12/20/17 at 09:00 Lacosamide (Vimpat) 200 mg BIDAFTMEAL PO Last administered on 01/06/18 16:31; Start 12/19/17 at 21:00 Lactobacillus Rhamnosus (Culturelle) 1 cap BID PO Last administered on 08:41; Start 12/19/17 at 21:00; Stop 01/02/18 at 17:14; Status DC Levetiracetam (Keppra) 750 mg BIDAFTMEAL PO Last administered on 01/06/18 16: 27; Start 12/20/17 at 09:00 Levothyroxine Sodium (Synthroid) 50 mcg DAILY06 PO Last administered on 06:16; Start 12/20/17 at 06:00 Non-Formulary Medication (Magnesium Hydroxide (Milk Of Magnesia)) 2,400 mg PRN QHS PRN PO CONSTIPATION; Start 12/19/17 at 18:15; Status UNV Magnesium Oxide (Magnesium Oxide) 400 mg TID PO Last administered on 01/06/18 20:09; Start 12/19/17 at 21:00 Pantoprazole Sodium (Protonix) 40 mg BIDBFRMEAL PO Last administered on 16:31; Start 12/20/17 at 07:30 Phenobarbital (Luminal) 64.8 mg QHS PO Last administered on 01/06/18 20:09; Start 12/19/17 at 21:00 Polyethylene Glycol (miraLAX) 17 gm PRN DAILY PRN PO CONSTIPATION; Start at 09:00 Quetiapine Fumarate (SEROquel) 12.5 mg QID PO Last administered on 01/06/18 20 :09; Start 12/19/17 at 21:00 Trazodone HCl (Desyrel) 50 mg PRN QHS PRN PO INSOMNIA, MAY REPEAT X1 Last administered on 12/20/17 23:32; Start 12/19/17 at 19:00 Ceftriaxone Sodium (Rocephin) 1 gm Q24H IVP Last administered on 12/21/17 15:55 ; Start 12/20/17 at 16:00; Stop 12/22/17 at 12:32; Status DC Sodium Chloride (Normal Saline Flush) 10 ml BID IV Last administered on at 07:46; Start 12/19/17 at 21:00; Stop 12/26/17 at 12:06; Status DC Sodium Chloride (Normal Saline Flush) 10 ml PRN DAILY PRN IV SEE COMMENTS Last administered on 12/22/17 17:12; Start 12/19/17 at 19:45; Stop 12/26/17 at 12:06; Status DC Ceftriaxone Sodium (Rocephin) 1 gm Q24H IVP Last administered on 12/24/17 17: 38; Start 12/22/17 at 16:00; Stop 12/25/17 at 16:38; Status DC Ceftriaxone Sodium (Rocephin Im) 1 gm Q24H ONCE IM ; Start 12/25/17 at 16:45; Stop 12/25/17 at 16:45; Status DC Ceftriaxone Sodium (Rocephin Im) 1 gm Q24H IM Last administered on 12/26/17at 16 :28; Start 12/25/17 at 16:45; Stop 12/26/17 at 21:00; Status DC Active Scripts Active Reported Ceftriaxone (Ceftriaxone Sodium) 1 Gm Vial 1 Gm IM/IV DAILY16 Levothyroxine Sodium 50 Mcg Tablet 50 Mcg PO DAILYAC Depakote Sprinkle (Divalproex Sodium) 125 Mg Cap.sprink 750 Mg PO QHS Trazodone Hcl 50 Mg Tablet 50 Mg PO PRN QHS PRN Analgesic [place] (Methyl Salicylate/Menthol) 28 Gm Oint...g. 1 Radha TP PRN QID PRN Mag-Al Plus Xs Suspension (Mag Hydrox/Al Hydrox/Simeth) 30 Ml Oral.susp 15 Ml PO PRN AFTMEALHC PRN Culturelle (Lactobacillus Rhamnosus Gg) 1 Each Capsule 1 Cap PO BID Vimpat (Lacosamide) 200 Mg Tablet 200 Mg PO BIDAFTMEAL Cymbalta (Duloxetine Hcl) 60 Mg Capsule.dr 60 Mg PO DAILY Divalproex Sodium 500 Mg Tablet.dr 500 Mg PO DAILY Oyster Shell Calcium (Calcium Carbonate) 500 Mg Tablet 1 Tab PO BIDWMEALS Miralax (Polyethylene Glycol 3350) 17 Gm Powd.pack 17 Gm PO PRN DAILY PRN Milk Of Magnesia (Magnesium Hydroxide) 2,400 Mg/10 Ml Oral.susp 2,400 Mg PO PRN QHS PRN Atorvastatin Calcium 10 Mg Tablet 5 Mg PO QHS Seroquel (Quetiapine Fumarate) 25 Mg Tablet 12.5 Mg PO [id number] Pantoprazole Sodium 40 Mg Tablet.dr 40 Mg PO BIDBFRMEAL Vitamin D3 (Cholecalciferol (Vitamin D3)) 1,000 Unit Tablet 1,000 Unit PO DAILY Phenobarbital 64.8 Mg Tablet 64.8 Mg PO HS Magnesium Oxide 400 Mg Tablet 400 Mg PO TID Tylenol (Acetaminophen) 325 Mg Tablet 650 Mg PO PRN Q6HRS PRN Tramadol Hcl (Tramadol HCl) 50 Mg Tablet 50 Mg PO PRN Q6HRS PRN Senna-S Tablet (Sennosides/Docusate Sodium) 1 Each Tablet 1 Tab PO PRN BID PRN Keppra (Levetiracetam) 250 Mg Tablet 750 Mg PO BIDAFTMEAL Ferrous Sulfate 325 Mg Tablet 325 Mg PO BIDAFTMEAL Bisacodyl 10 Mg Supp.rect 10 Mg RC PRN DAILY PRN Felbamate 400 Mg Tablet 800 Mg PO TID I have reviewed the current psychotropics carefully including drug interactions. Risk benefit ratio favors no change other than as noted in my dictated progress note. Diagnosis: Problems: (1) Severe major depression with psychotic features (2) Adjustment disorder with depressed mood (3) Bipolar affective, mixed (4) Impulse control disorder (5) Dementia, vascular, with delusions (6) Dementia, vascular, with depression HARVEY QUIJANO MD Jan 06, 2018 22:50
[2018-01-07] MEDS: LEVOTHYROXINE 50 MCG TABLET PO SCH (05:03)
--- NOTE | 2018-01-07 05:34 | NUR ---
Both left and right hand swollen, compliant with brace on hand.
[2018-01-07 05:51] VITALS: BP 95/63
[2018-01-07] MEDS: FELBAMATE 400 MG TABLET PO SCH (10:14)
[2018-01-07] MEDS: levETIRAcetam 250 MG TABLET PO SCH (10:14)
[2018-01-07] MEDS: DIVALPROEX 125 MG CAP.SPRINK PO SCH (10:14)
[2018-01-07] MEDS: PANTOPRAZOLE 40 MG TABLET. PO SCH (10:14)
[2018-01-07] MEDS: LACOSAMIDE 50 MG TABLET PO SCH (10:15)
[2018-01-07] MEDS: DULoxetine HCL 60 MG CAPSULE.DR PO SCH (10:15)
[2018-01-07] MEDS: CHOLECALCIFEROL (VITAMIN D3) 1,000 UNIT TABLET PO SCH (10:15)
[2018-01-07] MEDS: CALCIUM CARBONATE 500 MG TABLET PO SCH (10:15)
[2018-01-07] MEDS: MAGNESIUM OXIDE 400 MG TABLET PO SCH (10:15)
[2018-01-07] MEDS: FERROUS SULFATE 325 MG TABLET. PO SCH (10:15)
[2018-01-07] MEDS: QUEtiapine 25 MG TABLET. PO SCH (10:15)
--- NOTE | 2018-01-07 10:58 | NUR ---
Transition Record was faxed to follow-up provider with the following elements: Reason for admission, procedures, tests, principal diagnosis, pending studies, patient instructions, 05/11 contact information for unit, phone number to obtain pending test results, plan for follow-up care, physician follow-up, advanced directive information, and medication list with dose, duration and instructions. This information was included in the following documents: History and physical, lab results, study results, progress notes, social work planning form, DC instruction form, patient visit summary, and medication reconciliation form. Date & time record faxed: 01/07/18 [id number] Record faxed to: [facility] Record discussed with/ report given to: NENITA Chong
--- NOTE | 2018-01-07 18:47 | PDOC ---
Exam Note: David Note: Please also refer to the separate dictated note~for this date of service dictated separately.~Patient seen individually. Discussed the patient with Nursing staff reviewed the chart.~Reviewed interim history and current functioning. Reviewed vital signs,~Labs/ Radiology~and current medications noted below. Continue current treatment with the changes noted in the dictated addendum note Assessment: Vital Signs: Vital Signs Date Time Temp Pulse Resp B/P (MAP) Pulse Ox O2 Delivery O2 Flow Rate FiO2 01/07/18 05:51 97.3 69 20 95/63 (74) 96 01/06/18 16:14 Room Air I&O Intake and Output 01/07/18 07:00 Intake Total 840 ml Balance 840 ml Intake Oral 840 ml Current Medications: Meds: Current Medications Acetaminophen (Tylenol) 650 mg PRN Q6HRS PRN PO PAIN / TEMP Last administered on 01/06/18at 16:51; Start 12/19/17 at 18:15; Stop 01/07/18 at 11:17; Status DC Multi-Ingredient Ointment (Analgesic Himrod) 1 radha PRN QID PRN TP MUSCLE PAIN; Start 12/19/17 at 18:15; Stop 01/07/18 at 11:17; Status DC Al Hydroxide/Mg Hydroxide (Mylanta Plus Xs) 15 ml PRN AFTMEALHC PRN PO DYSPEPSIA; Start 12/19/17 at 18:15; Stop 01/07/18 at 11:17; Status DC Magnesium Hydroxide (Milk Of Magnesia) 2,400 mg PRN QHS PRN PO CONSTIPATION Last administered on 12/27/17at 07:48; Start 12/19/17 at 18:15; Stop 01/07/18 at 11:17; Status DC Acetaminophen (Tylenol) 650 mg PRN Q6HRS PRN PO PAIN / TEMP; Start 12/19/17 at 18:15; Status UNV Calcium Carbonate/ Glycine (Oscal) 500 mg BIDWMEALS PO Last administered on at 10:15; Start 12/20/17 at 08:00; Stop 01/07/18 at 11:17; Status DC Ceftriaxone Sodium (Rocephin) 1 gm DAILY16 IV ; Start 12/20/17 at 16:00; Status UNV Vitamin D (Vitamin D3) 1,000 unit DAILY PO Last administered on 01/07/18at 10:15 ; Start 12/20/17 at 09:00; Stop 01/07/18 at 11:17; Status DC Felbamate (Felbatol) 800 mg TID PO Last administered on 01/07/18at 10:14; Start 12/19/17 at 21:00; Stop 01/07/18 at 11:17; Status DC Ferrous Sulfate (Feosol) 325 mg BIDAFTMEAL PO Last administered on 01/07/18at 10 :15; Start 12/20/17 at 09:00; Stop 01/07/18 at 11:17; Status DC Al Hydroxide/Mg Hydroxide (Mylanta Plus Xs) 15 ml PRN AFTMEALHC PRN PO DYSPEPSIA; Start 12/19/17 at 18:15; Status UNV Multi-Ingredient Ointment (Analgesic Himrod) 1 radha PRN QID PRN TP MUSCLE PAIN; Start 12/19/17 at 18:15; Status UNV Senna/Docusate Sodium (Senna Plus) 1 tab PRN BID PRN PO CONSTIPATION Last administered on 12/31/17at 18:33; Start 12/19/17 at 18:15; Stop 01/07/18 at 11:17 ; Status DC Tramadol HCl (Ultram) 50 mg PRN Q6HRS PRN PO PAIN Last administered on at 05:49; Start 12/19/17 at 18:15; Stop 01/07/18 at 11:17; Status DC Atorvastatin Calcium (Lipitor) 5 mg QHS PO Last administered on 01/06/18at 20:09 ; Start 12/19/17 at 21:00; Stop 01/07/18 at 11:17; Status DC Bisacodyl (Dulcolax Supp) 10 mg PRN DAILY PRN CA CONSTIPATION; Start 12/19/17 at 18:45; Stop 01/07/18 at 11:17; Status DC Divalproex Sodium (Depakote Sprinkles) 500 mg DAILY PO Last administered on at 10:14; Start 12/20/17 at 09:00; Stop 01/07/18 at 11:18; Status DC Divalproex Sodium (Depakote Sprinkles) 750 mg QHS PO Last administered on at 20:08; Start 12/19/17 at 21:00; Stop 01/07/18 at 11:18; Status DC Duloxetine HCl (Cymbalta) 60 mg DAILY PO Last administered on 01/07/18at 10:15; Start 12/20/17 at 09:00; Stop 01/07/18 at 11:18; Status DC Lacosamide (Vimpat) 200 mg BIDAFTMEAL PO Last administered on 01/07/18at 10:15; Start 12/19/17 at 21:00; Stop 01/07/18 at 11:18; Status DC Lactobacillus Rhamnosus (Culturelle) 1 cap BID PO Last administered on at 08:41; Start 12/19/17 at 21:00; Stop 01/02/18 at 17:14; Status DC Levetiracetam (Keppra) 750 mg BIDAFTMEAL PO Last administered on 01/07/18at 10: 14; Start 12/20/17 at 09:00; Stop 01/07/18 at 11:18; Status DC Levothyroxine Sodium (Synthroid) 50 mcg DAILY06 PO Last administered on at 05:03; Start 12/20/17 at 06:00; Stop 01/07/18 at 11:18; Status DC Non-Formulary Medication (Magnesium Hydroxide (Milk Of Magnesia)) 2,400 mg PRN QHS PRN PO CONSTIPATION; Start 12/19/17 at 18:15; Status UNV Magnesium Oxide (Magnesium Oxide) 400 mg TID PO Last administered on 01/07/18at 10:15; Start 12/19/17 at 21:00; Stop 01/07/18 at 11:18; Status DC Pantoprazole Sodium (Protonix) 40 mg BIDBFRMEAL PO Last administered on at 10:14; Start 12/20/17 at 07:30; Stop 01/07/18 at 11:18; Status DC Phenobarbital (Luminal) 64.8 mg QHS PO Last administered on 01/06/18at 20:09; Start 12/19/17 at 21:00; Stop 01/07/18 at 11:18; Status DC Polyethylene Glycol (miraLAX) 17 gm PRN DAILY PRN PO CONSTIPATION; Start at 09:00; Stop 01/07/18 at 11:18; Status DC Quetiapine Fumarate (SEROquel) 12.5 mg QID PO Last administered on 01/07/18at 10 :15; Start 12/19/17 at 21:00; Stop 01/07/18 at 11:18; Status DC Trazodone HCl (Desyrel) 50 mg PRN QHS PRN PO INSOMNIA, MAY REPEAT X1 Last administered on 12/20/17at 23:32; Start 12/19/17 at 19:00; Stop 01/07/18 at 11:18; Status DC Ceftriaxone Sodium (Rocephin) 1 gm Q24H IVP Last administered on 12/21/17at 15:55 ; Start 12/20/17 at 16:00; Stop 12/22/17 at 12:32; Status DC Sodium Chloride (Normal Saline Flush) 10 ml BID IV Last administered on at 07:46; Start 12/19/17 at 21:00; Stop 12/26/17 at 12:06; Status DC Sodium Chloride (Normal Saline Flush) 10 ml PRN DAILY PRN IV SEE COMMENTS Last administered on 12/22/17at 17:12; Start 12/19/17 at 19:45; Stop 12/26/17 at 12:06; Status DC Ceftriaxone Sodium (Rocephin) 1 gm Q24H IVP Last administered on 12/24/17at 17: 38; Start 12/22/17 at 16:00; Stop 12/25/17 at 16:38; Status DC Ceftriaxone Sodium (Rocephin Im) 1 gm Q24H ONCE IM ; Start 12/25/17 at 16:45; Stop 12/25/17 at 16:45; Status DC Ceftriaxone Sodium (Rocephin Im) 1 gm Q24H IM Last administered on 12/26/17at 16 :28; Start 12/25/17 at 16:45; Stop 12/26/17 at 21:00; Status DC Active Scripts Active Reported Levothyroxine Sodium 50 Mcg Tablet 50 Mcg PO DAILYAC Depakote Sprinkle (Divalproex Sodium) 125 Mg Cap.sprink 750 Mg PO QHS Trazodone Hcl 50 Mg Tablet 50 Mg PO PRN QHS PRN Analgesic Himrod (Methyl Salicylate/Menthol) 28 Gm Oint...g. 1 Radha TP PRN QID PRN Mag-Al Plus Xs Suspension (Mag Hydrox/Al Hydrox/Simeth) 30 Ml Oral.susp 15 Ml PO PRN AFTMEALHC PRN Vimpat (Lacosamide) 200 Mg Tablet 200 Mg PO BIDAFTMEAL Cymbalta (Duloxetine Hcl) 60 Mg Capsule.dr 60 Mg PO DAILY Divalproex Sodium 500 Mg Tablet.dr 500 Mg PO DAILY Oyster Shell Calcium (Calcium Carbonate) 500 Mg Tablet 1 Tab PO BIDWMEALS Miralax (Polyethylene Glycol 3350) 17 Gm Powd.pack 17 Gm PO PRN DAILY PRN Milk Of Magnesia (Magnesium Hydroxide) 2,400 Mg/10 Ml Oral.susp 2,400 Mg PO PRN QHS PRN Atorvastatin Calcium 10 Mg Tablet 5 Mg PO QHS Seroquel (Quetiapine Fumarate) 25 Mg Tablet 12.5 Mg PO [id number] Pantoprazole Sodium 40 Mg Tablet.dr 40 Mg PO BIDBFRMEAL Vitamin D3 (Cholecalciferol (Vitamin D3)) 1,000 Unit Tablet 1,000 Unit PO DAILY Phenobarbital 64.8 Mg Tablet 64.8 Mg PO HS Magnesium Oxide 400 Mg Tablet 400 Mg PO TID Tylenol (Acetaminophen) 325 Mg Tablet 650 Mg PO PRN Q6HRS PRN Tramadol Hcl (Tramadol HCl) 50 Mg Tablet 50 Mg PO PRN Q6HRS PRN Senna-S Tablet (Sennosides/Docusate Sodium) 1 Each Tablet 1 Tab PO PRN BID PRN Keppra (Levetiracetam) 250 Mg Tablet 750 Mg PO BIDAFTMEAL Ferrous Sulfate 325 Mg Tablet 325 Mg PO BIDAFTMEAL Bisacodyl 10 Mg Supp.rect 10 Mg RC PRN DAILY PRN Felbamate 400 Mg Tablet 800 Mg PO TID I have reviewed the current psychotropics carefully including drug interactions. Risk benefit ratio favors no change other than as noted in my dictated progress note. Diagnosis: Problems: (1) Bipolar affective, mixed (2) Impulse control disorder (3) Dementia, vascular, with depression HARVEY QUIJANO MD Jan 07, 2018 18:47
--- NOTE | 2018-01-07 20:30 | DS ---
DATE OF DISCHARGE: 01/07/2018 DISCHARGE SUMMARY/PSYCHIATRIC PROGRESS NOTE This note covers elements not covered in my initial note of 01/07/2018 REASON FOR ADMISSION: Please refer to the admission history for details. Briefly, the patient is a 63-year-old female, referred back to us from [address] [place] [address] after she was medically stabilized when she arrived via the Emergency Room at [facility] from [facility]. At the senior care, she was extremely agitated, depressed, aggressive towards others around, had to be on one-on-one status, was pinching, hitting, kicking other residents, noncompliant with medications. She had a UTI, treated on , behaviors persisted and then she was transferred to our significant findings and clinical course. Following admission, the patient was seen daily individually by myself from a psychiatric standpoint, medical followup with Dr. Ackerman/Dr. Townsend. She remains somewhat withdrawn, angry, and irritable at times paranoid. Adjustments were made in her psychotropics. She seemed to respond to a combination of Cymbalta 60 mg a day, Depakote 500 mg a.m., 750 at bedtime, Seroquel 12.5 mg 4 times a day, trazodone 50 at bedtime, p.r.n. insomnia, may repeat x 1 and she is on phenobarbital for her seizures. Prior to discharge, 01/07/2018, no CV, , pulmonary, eye system symptoms on review. Gait unsteady in wheelchair. MENTAL STATUS EXAM: Oriented to herself and situation. Speech, moderate latency, coherent, often responses monosyllabic. Abstraction fair, computation impaired, language function intact. Mood and affect, still withdrawn, but improved, less depressed, less anxious. No suicidal or homicidal ideation. LABORATORY DATA: Reviewed. CONDITION AT DISCHARGE: Improved. FINAL DIAGNOSES: Bipolar 1 disorder, mixed with psychotic features, in partial remission; cognitive disorder, unspecified; impulse control disorder, unspecified; anxiety disorder, unspecified. DISCHARGE MEDICATIONS: Please refer to the MRAD. DISCHARGE INSTRUCTIONS: Outpatient psychiatric medical followup at the senior care. HARVEY QUIJANO MD DR: LOYD/eboni JOB#: [id number] / [id number]
--- NOTE | 2018-01-07 23:08 | PN ---
DATE: 01/06/2018 This note covers elements not covered in my initial note of 01/06/2018. SUBJECTIVE: I met with the patient in the evening. The patient slept well the previous evening, compliant with medications, not aggressive, appears less depressed. REVIEW OF SYSTEMS: Ambulation impaired, in wheelchair. No CV, , pulmonary, eye, ENT system symptoms on review. MENTAL STATUS EXAM: Oriented to herself and situation. Speech moderate latency, often responses monosyllabic. Abstraction fair, computation impaired, language function intact, attention span short. Mood and affect somewhat withdrawn, but overall depression is better. LABORATORY DATA: Reviewed. IMPRESSION: Bipolar 1 disorder, mixed with psychotic features, in partial remission. Rest unchanged. PLAN: Continue psychotropics from initial note including phenobarbital for her seizures, Cymbalta, Depakote, Seroquel along with trazodone p.r.n. Transition to long term 01/07/2018. HARVEY QUIJANO MD DR: LOYD/eboni JOB#: [id number] / [id number]
== END 2018-01-07 10:30 | DRG 885 ==
LOC: GEROPSY 17:52
PROVIDERS: ADMIT Psychiatry & Neurology Psychiatry; ATTEND Psychiatry & Neurology Psychiatry
DX: F31.60 Bipolar disorder, current episode mixed, unspecified (principal); N39.0 Urinary tract infection, site not specified; E78.5 Hyperlipidemia, unspecified; F01.50 Vascular dementia, unspecified severity, without behavioral disturbance, psychotic disturbance, mood disturbance, and anxiety; F09 Unspecified mental disorder due to known physiological condition; F41.9 Anxiety disorder, unspecified; F43.21 Adjustment disorder with depressed mood; F63.9 Impulse disorder, unspecified; G40.909 Epilepsy, unspecified, not intractable, without status epilepticus; Z96.642 Presence of left artificial hip joint; R29.6 Repeated falls; K59.1 Functional diarrhea; Z91.14 Patient's other noncompliance with medication regimen; Z79.899 Other long term (current) drug therapy
CPT/HCPCS: 36415; 73110; 73130; 80053; 80061; 80164; 82306; 82607; 83036; 83540; 83550; 83735; 84436; 84443; 84480; 85025; 86592; J0696

== ENCOUNTER 2018-05-14 23:53 | Inpatient (IN) | payer MEDICARE, OTHER ==
[~2018-05-14] VITALS: Ht 165.1 cm; Wt 56.4 kg
[~2018-05-14 23:53] MED LIST changes: +TRAZ-120 PO; -TRAZ-85 PO
[2018-05-15] MEDS ORDERED: diphenhydrAMINE 50 MG/ML VIAL IM ONE (01:00)
[2018-05-15] MEDS ORDERED: HALOPERIDOL LACT 5 MG/ML VIAL. IM ONE (01:00)
--- NOTE | 2018-05-15 01:42 | PHYS DOC ---
Adult General Chief Complaint Chief Complaint transfer for admission HPI HPI 63 female transferred for admission for linda-psychiatry . here for medical clearance . Review of Systems Review of Systems Constitutional: Denies fever or chills [] Eyes: Denies change in visual acuity, redness, or eye pain [] HENT: Denies nasal congestion or sore throat [] Respiratory: Denies cough or shortness of breath [] Cardiovascular: No additional information not addressed in HPI [] GI: Denies abdominal pain, nausea, vomiting, bloody stools or diarrhea [] : Denies dysuria or hematuria [] Musculoskeletal: Denies back pain or joint pain [] Integument: Denies rash or skin lesions [] Neurologic: Denies headache, focal weakness or sensory changes [] Endocrine: Denies polyuria or polydipsia [] All other systems were reviewed and found to be within normal limits, except as documented in this note. Current Medications Current Medications Current Medications Medications (Trade) Dose Ordered Sig/Antoni Start Time Stop Time Status Last Admin Dose Admin Diphenhydramine HCl (Benadryl) 50 mg 1X ONCE 05/15/18 01:00 05/15/18 01:01 DC 05/15/18 00:47 50 MG Haloperidol Lactate (Haldol) 5 mg 1X ONCE 05/15/18 01:00 05/15/18 01:01 DC 05/15/18 00:47 5 MG Lorazepam (Ativan) 2 mg 1X ONCE 05/15/18 00:30 05/15/18 00:51 DC 05/15/18 00:46 2 MG Allergies Allergies Allergies Coded Allergies Type Severity Reaction Last Updated Verified clobazam Allergy Intermediate 10/10/17 Yes hydrocodone Allergy Intermediate 10/10/17 Yes vancomycin Allergy Intermediate 10/10/17 Yes Physical Exam Physical Exam Constitutional: Well developed, well nourished, no acute distress, non-toxic appearance. [] HENT: Normocephalic, atraumatic, bilateral external ears normal, oropharynx moist, no oral exudates, nose normal. [] Eyes: PERRLA, EOMI, conjunctiva normal, no discharge. [] Neck: Normal range of motion, no tenderness, supple, no stridor. [] Cardiovascular:Heart rate regular rhythm, no murmur [] Lungs & Thorax: Bilateral breath sounds clear to auscultation [] Abdomen: Bowel sounds normal, soft, no tenderness, no masses, no pulsatile masses. [] Skin: Warm, dry, no erythema, no rash. [] Back: No tenderness, no CVA tenderness. [] Extremities: No tenderness, no cyanosis, no clubbing, ROM intact, no edema. [] Neurologic: Alert and oriented X 3, normal motor function, normal sensory function, no focal deficits noted. [] EKG EKG [] Radiology/Procedures Radiology/Procedures [] Course & Med Decision Making Course & Med Decision Making Pertinent Labs and Imaging studies reviewed. (See chart for details) [] Final Impression Final Impression [] Problems: (1) Bipolar affective, mixed (2) Adjustment disorder with depressed mood Dragon Disclaimer Dragon Disclaimer This electronic medical record was generated, in whole or in part, using a voice recognition dictation system. MABEL MACIEL MD May 15, 2018 01:42
[2018-05-15] MEDS ORDERED: ACETAMINOPHEN 325 MG TABLET PO PRN ×2 (02:15→05:15)
[2018-05-15 02:55] LABS: CALCIUM 9.2 mg/dL (8.5-10.1); CREATININE 0.9 mg/dL (0.6-1.0); GFR 62.8; POTASSIUM 3.8 mmol/L (3.5-5.1)
[2018-05-15 03:01] LABS: BACTERIA,URINE 0 /HPF (0-FEW); BILIRUBIN,URINE NEG (NEG); CLARITY,URINE CLEAR; COLOR,URINE YELLOW; GLUCOSE,URINE NEG (NEG); NITRITE,URINE NEG (NEG); RBC,URINE 0 /HPF (0-2); SQUAMOUS EPITHELIAL CELL,UR OCC /LPF; UROBILINOGEN,URINE 0.2 mg/dL (0.2 mg/dL)
[2018-05-15 03:19] LABS: BASO % 1 % (0-3); EOS # 0.1 x10^3/uL (0.0-0.7); EOS % 2 % (0-3); HEMATOCRIT 36.3 % (36.0-47.0); HEMOGLOBIN 12.3 g/dL (12.0-15.5); LYMPH # 1.5 x10^3/uL (1.0-4.8); LYMPH % 22 % (24-48); MEAN CORPUSCULAR HEMOGLOBIN 33 pg (25-35); MEAN CORPUSCULAR HGB CONC 34 g/dL (31-37); MEAN CORPUSCULAR VOLUME 97 fL (79-100); MONO # 0.6 x10^3/uL (0.0-1.1); MONO % 8 % (0-9); NEUT # 4.6 x10^3uL (1.8-7.7); NEUT % 67 % (31-73); PLATELET COUNT 277 x10^3/uL (140-400); RED BLOOD COUNT 3.75 x10^6/uL (3.50-5.40); RED CELL DISTRIBUTION WIDTH 13.7 % (11.5-14.5); WHITE BLOOD COUNT 6.9 x10^3/uL (4.0-11.0)
--- NOTE | 2018-05-15 04:21 | NUR ---
Admission Note with Justification for Admission to [facility] Patient admitted to [facility] for protective oversight for emergency stabilization of acute psychiatric crisis. Pt admitted from: SNF medical clearance bt [facility] Mode of arrival: EMS Accompanied By: EMS and Mariama Brown RN NSO Precipitating behaviors that initiated intake and admission:Refusing meds, verbal and violent altercations with staff and residents Description of failure of out patient attempts at stabilization in previous setting list behavior and medication trials: Recent inpatient stay at [facility] facility, [facility], [facility] Behaviors and assessment findings upon admission: Angry, uncooperative, resistive to staff Plan: Admit for protective oversight for adjustment and stabilization of medications, behaviors and mood. Intense treatment regimen including groups, medication adjustments, therapy, consistent regimen for ADL's, self care, and sleep hygiene. Daily monitoring by Inpatient staff, Psychiatry, and Medical Physician.
[2018-05-15] MEDS ORDERED: METHYL SALICYLATE/MENTHOL TOPICAL OINTMENT 29GM TUBE. TP PRN ×2 (05:15→05:45)
[2018-05-15] MEDS ORDERED: SENNOSIDES/DOCUSATE 8.6/50MG TABLET. PO PRN (05:15)
[2018-05-15] MEDS ORDERED: traMADol 50 MG TABLET PO PRN ×5 (05:15→10:30)
[2018-05-15] MEDS ORDERED: MAG HYDROX/AL HYDROX/SIMETH 30 ML ORAL.SUSP PO PRN ×2 (05:15→05:45)
[2018-05-15] MEDS ORDERED: MAGNESIUM HYDROXIDE 2,400 MG/30 ML ORAL.SUSP. PO PRN ×2 (05:30→05:45)
[2018-05-15] MEDS ORDERED: traZODone 50 MG TABLET. PO PRN (05:30)
[2018-05-15] MEDS ORDERED: BISACODYL 10 MG SUPP.RECT PR PRN (05:30)
--- NOTE | 2018-05-15 05:59 | EKG ---
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
[2018-05-15] MEDS ORDERED: LEVOTHYROXINE 50 MCG TABLET PO SCH (06:00)
[2018-05-15 06:19] LABS: PHENY 0.6 mcg/mL (10.0-20.0)
[2018-05-15 06:49] VITALS: BP 104/72
[2018-05-15] MEDS ORDERED: IBUPROFEN 400 MG TABLET. PO PRN (07:30)
[2018-05-15] MEDS ORDERED: MINERAL OIL/PETROLATUM TOPICAL CREAM 113GM JAR. TP PRN ×2 (07:30→10:30)
[2018-05-15] MEDS ORDERED: PANTOPRAZOLE 40 MG TABLET. PO SCH ×2 (07:30→16:30)
[2018-05-15] MEDS: CALCIUM CARBONATE 500 MG TABLET PO SCH ×2 (08:00→16:54)
[2018-05-15] MEDS ORDERED: DIVALPROEX 125 MG CAP.SPRINK PO SCH ×2 (09:00→21:00)
[2018-05-15] MEDS: FERROUS SULFATE 325 MG TABLET. PO SCH ×2 (09:00→16:54)
[2018-05-15] MEDS: FELBAMATE 400 MG TABLET PO SCH ×3 (09:00→20:48)
[2018-05-15] MEDS ORDERED: LACOSAMIDE 50 MG TABLET PO SCH (09:00)
[2018-05-15] MEDS: levETIRAcetam 500 MG TABLET PO SCH ×2 (09:00→20:46)
[2018-05-15] MEDS ORDERED: QUEtiapine 25 MG TABLET. PO SCH (09:00)
[2018-05-15] MEDS: CHOLECALCIFEROL (VITAMIN D3) 1,000 UNIT TABLET PO SCH (09:00)
[2018-05-15] MEDS: LACOSAMIDE 50 MG TABLET PO SCH ×2 (09:00→20:45)
[2018-05-15] MEDS: MAGNESIUM OXIDE 400 MG TABLET PO SCH ×4 (09:00→20:46)
[2018-05-15] MEDS: OLANZapine 5 MG TABLET PO SCH ×2 (09:00→20:45)
[2018-05-15] MEDS ORDERED: levETIRAcetam 250 MG TABLET PO SCH (09:00)
[2018-05-15] MEDS: PHENobarbital 32.4 MG TABLET. PO SCH ×2 (09:00→20:46)
[2018-05-15] MEDS ORDERED: POLYETHYLENE GLYCOL 3350 17 GM PACKET. PO PRN (09:00)
[2018-05-15] MEDS ORDERED: DULoxetine HCL 60 MG CAPSULE.DR PO SCH (09:00)
[2018-05-15] MEDS ORDERED: guaiFENesin 300 MG/15 ML LIQUID PO PRN (10:30)
[2018-05-15] MEDS ORDERED: MIRT15TA PO (10:42)
[2018-05-15] MEDS ORDERED: IBUP400T18 PO (10:42)
[2018-05-15] MEDS ORDERED: OLAN5TAB9 PO (10:42)
[2018-05-15] MEDS ORDERED: TRAM50TA PO ×2 (10:42)
[2018-05-15] MEDS ORDERED: CALC500T PO (10:42)
[2018-05-15] MEDS ORDERED: CETI10TA16 PO (10:42)
[2018-05-15] MEDS ORDERED: MINE120C TP (10:42)
[2018-05-15] MEDS ORDERED: GUAI100L12 PO (10:42)
[2018-05-15] MEDS ORDERED: CHOL100013 PO (10:42)
[2018-05-15] MEDS: PANTOPRAZOLE 40 MG TABLET. PO SCH (12:24)
--- NOTE | 2018-05-15 14:40 | NUR ---
Patient refused her 14:00 medications. Patient was instructed that she should take her medication or she would have more seizures. Patient continued to refuse medications, medication provided sublingually. Will continue to monitor.
--- NOTE | 2018-05-15 14:53 | NUR ---
PATTI contacted pt son, Kaushik, to discuss an update on pt. PATTI let Kaushik know that pt did not have tx team today as pt did not get admitted until 420. Pt and Kaushik discussed pt having aggressive bx towards staff. Pt son mentioned that staff reports she begun biting and pulling hair. She has been to [facility] for almost 2 weeks and did fine; at [facility] for quite a few days. Kaushik has concerns that pt has been decided that she does not want to be at [facility]. [facility] is concerned with her hurting staff and the potential of others retaliating back onto her. Pt son reports that it was [facility] who diagnosed her with Bipolar, which has never been an issue before. Pt son is fearful that they are potentially looking at a new placement for pt. PATTI will make sure pt son is able to participate in tx team next week. Addendum: 05/15/18 at 1525 by MONIQUE ARMSTRONG PATTI received permission to receive medical records from [facility] and [facility] re: pt psychiatric stays.
[2018-05-15 16:13] VITALS: BP 97/74
[2018-05-15 17:12] LABS: THYROXINE 6.8 ug/dL (4.5-12.0)
--- NOTE | 2018-05-15 18:45 | HP ---
ADMIT DATE: 05/15/2018 PSYCHIATRIC ADMISSION HISTORY AND EVALUATION IDENTIFYING DATA: The patient is a 63-year-old female who is referred back to us yet once again this time from [facility] on account of increasingly out of control, unmanageable behaviors. She was refusing her psychotropics, was violent and having verbal altercation with staff and residents. She was unmanageable at the facility and had failed a very recent psychiatric hospitalization at [facility] having being discharged from the inpatient service on 05/08/2018. I have discussed the patient with Amanda Rosenthal, nursing staff several times prior to the patient's admission. CHIEF COMPLAINT: "I came today." HISTORY OF PRESENT ILLNESS: The patient has a history of bipolar disorder versus schizoaffective disorder and progressive memory deficits. She has been here with us in the past and at various nursing homes and has most recently been at [facility]. Recently, she is getting increasingly violent with verbal altercations with staff and residents, refusing medications including phenobarbital for seizures, raising a significant risk to her health. She has had some sleep and appetite changes. No active suicidal or homicidal ideation. PAST PSYCHIATRIC HISTORY: As above. MEDICAL HISTORY: Positive for seizure disorder, memory deficits and GERD. ACCU-CHEKS: None. CODE STATUS: Full code. ALLERGIES: HYDROCODONE, VANCOMYCIN. Ambulates in wheelchair. CURRENT PSYCHOTROPICS: Remeron 15 mg at bedtime, Zyprexa 5 mg b.i.d. SOCIAL HISTORY: No history of physical, sexual or elder abuse and she is not known to be a perpetrator. FAMILY HISTORY: Noncontributory. MENTAL STATUS EXAM: The patient was seen individually on the evening of 05/15/2018. She readily recognized me. Eye contact is fair. Speech has some latency, often responses monosyllabic. Abstraction fair, computation impaired, language function intact. Attention span short. Short term memory is impaired. She does appear somewhat paranoid, distractible, dysphoric, sad. No active suicidal or homicidal ideation. LABORATORY DATA: Reviewed. IMPRESSION: Bipolar 1 disorder, mixed with psychotic features; anxiety disorder, unspecified; cognitive disorder, unspecified; impulse control disorder, unspecified. Rest as above. PLAN: Admit to Geropsychiatry Unit at [facility]. I will see the patient daily individually from a psychiatric standpoint, medical followup with Dr. Ackerman. Continue current psychotropics. Consider adding a mood stabilizer. Further changes post baseline assessment. HARVEY QUIJANO MD DR: LOYD/eboni JOB#: [id number] / [id number]
[2018-05-15] MEDS: MIRTAZAPINE 15 MG TABLET PO SCH (20:48)
[2018-05-15] MEDS: ATORVASTATIN CALCIUM 10 MG TABLET. PO SCH (20:49)
[2018-05-15] MEDS: CETIRIZINE HCL 10 MG TABLET PO SCH (20:49)
[2018-05-15] MEDS: traMADol 50 MG TABLET PO SCH (20:49)
--- NOTE | 2018-05-15 20:50 | NUR ---
At shift pt is sitting in the dayroom, withdrawn to self. Pt refused to answer assessment question, not wanting to give this staff member that information. Pt was also resistive with medication this evening. Reinforced the importance of her medication, especially her multiple seizure medications. Pt agreed with encouragement to take her medications. Pt took her pills whole, two at a time.
[2018-05-15] MEDS ORDERED: CETIRIZINE HCL 10 MG PO SCH (21:00)
[2018-05-15] MEDS ORDERED: ATORVASTATIN CALCIUM 10 MG TABLET. PO SCH (21:00)
[2018-05-15] MEDS ORDERED: OLANZAPINE 5 MG PO SCH (21:00)
[2018-05-15] MEDS ORDERED: MIRTAZAPINE 15 MG PO SCH (21:00)
[2018-05-15] MEDS ORDERED: PHENobarbital 32.4 MG TABLET. PO SCH (21:00)
[2018-05-15] MEDS ORDERED: CALCIUM CARBONATE 500 MG TABLET PO SCH (21:00)
--- NOTE | 2018-05-15 22:26 | PDOC ---
Exam Note: David Note: Please also refer to the separate dictated note~for this date of service dictated separately. Discussed the patient with Nursing staff reviewed the chart.~Reviewed interim history and current functioning. Reviewed vital signs,~ Labs/ Radiology~and current medications noted below. Continue current treatment with the changes noted in the dictated addendum note Assessment: Vital Signs: Vital Signs Date Time Temp Pulse Resp B/P (MAP) Pulse Ox O2 Delivery O2 Flow Rate FiO2 05/15/18 21:53 18 Room Air 05/15/18 16:13 97.6 70 97/74 (82) 94 Labs: Laboratory Tests Test 05/15/18 02:15 05/15/18 02:25 Urine Collection Type U cath Urine Color Yellow Urine Clarity Clear Urine pH 5.5 Urine Specific [place] 1.020 Urine Protein Neg (NEG-TRACE) Urine Glucose (UA) Neg mg/dL (NEG) Urine Ketones (Stick) 15 mg/dL (NEG) Urine Blood Neg (NEG) Urine Nitrite Neg (NEG) Urine Bilirubin Neg (NEG) Urine Urobilinogen Dipstick 0.2 mg/dL (0.2 mg/dL) Urine Leukocyte Esterase Neg (NEG) Urine RBC 0 /HPF (0-2) Urine WBC 1-4 /HPF (0-4) Urine Squamous Epithelial Cells Occ /LPF Urine Bacteria 0 /HPF (0-FEW) White Blood Count 6.9 x10^3/uL (4.0-11.0) Red Blood Count 3.75 x10^6/uL (3.50-5.40) Hemoglobin 12.3 g/dL (12.0-15.5) Hematocrit 36.3 % (36.0-47.0) Mean Corpuscular Volume 97 fL (79-100) Mean Corpuscular Hemoglobin 33 pg (25-35) Mean Corpuscular Hemoglobin Concent 34 g/dL (31-37) Red Cell Distribution Width 13.7 % (11.5-14.5) Platelet Count 277 x10^3/uL (140-400) Neutrophils (%) (Auto) 67 % (31-73) Lymphocytes (%) (Auto) 22 % (24-48) L Monocytes (%) (Auto) 8 % (0-9) Eosinophils (%) (Auto) 2 % (0-3) Basophils (%) (Auto) 1 % (0-3) Neutrophils # (Auto) 4.6 x10^3uL (1.8-7.7) Lymphocytes # (Auto) 1.5 x10^3/uL (1.0-4.8) Monocytes # (Auto) 0.6 x10^3/uL (0.0-1.1) Eosinophils # (Auto) 0.1 x10^3/uL (0.0-0.7) Basophils # (Auto) 0.0 x10^3/uL (0.0-0.2) Sodium Level 142 mmol/L (136-145) Potassium Level 3.8 mmol/L (3.5-5.1) Chloride Level 103 mmol/L (98-107) Carbon Dioxide Level 28 mmol/L (21-32) Anion Gap 11 (6-14) Blood Urea Nitrogen 22 mg/dL (7-20) H Creatinine 0.9 mg/dL (0.6-1.0) Estimated GFR (Cockcroft-Gault) 62.8 Glucose Level 97 mg/dL (70-99) Calcium Level 9.2 mg/dL (8.5-10.1) Magnesium Level 2.3 mg/dL (1.8-2.4) Iron Level 44 ug/dL (50-170) L Total Iron Binding Capacity 289 ug/dL (250-450) Iron Saturation 15 % (15-34) Triglycerides Level 110 mg/dL (0-150) Cholesterol Level 181 mg/dL (0-200) LDL Cholesterol, Calculated 107 mg/dL (0-100) H VLDL Cholesterol, Calculated 22 mg/dL (0-40) Non-HDL Cholesterol Calculated 129 mg/dL (0-129) HDL Cholesterol 52 mg/dL (40-60) Cholesterol/HDL Ratio 3.0 25-Hydroxy Vitamin D Total 44.8 ng/mL (30-100) Thyroid Stimulating Hormone (TSH) 4.950 uIU/mL (0.358-3.740) Thyroxine (T4) 6.8 ug/dL (4.5-12.0) Total Triiodothyronine (TT3) 97 ng/dL (71-180) Phenytoin (Dilantin) Level 0.6 mcg/mL (10.0-20.0) L Phenytoin Last Dose Date 05/13/2018 Phenytoin Last Dose Time 0900 Treponema pallidum Antibody Nonreactive (Nonreactive) Current Medications: Meds: Current Medications Haloperidol Lactate (Haldol) 5 mg 1X ONCE IM Last administered on 05/15/18at 00 :47; Start 05/15/18 at 01:00; Stop 05/15/18 at 01:01; Status DC Diphenhydramine HCl (Benadryl) 50 mg 1X ONCE IM Last administered on at 00:47; Start 05/15/18 at 01:00; Stop 05/15/18 at 01:01; Status DC Lorazepam (Ativan) 2 mg 1X ONCE IM Last administered on 05/15/18at 00:46; Start 05/15/18 at 00:30; Stop 05/15/18 at 00:51; Status DC Acetaminophen (Tylenol) 650 mg PRN Q4HRS PRN PO FEVER; Start 05/15/18 at 02:15 ; Stop 05/15/18 at 05:14; Status DC Acetaminophen (Tylenol) 650 mg PRN Q6HRS PRN PO PAIN / TEMP; Start 05/15/18 at 05:15 Calcium Carbonate/ Glycine (Oscal) 500 mg BIDWMEALS PO Last administered on at 16:54; Start 05/15/18 at 08:00 Vitamin D (Vitamin D3) 1,000 unit DAILY PO ; Start 05/15/18 at 09:00 Felbamate (Felbatol) 400 mg TID PO Last administered on 05/15/18at 20:48; Start 05/15/18 at 09:00 Ferrous Sulfate (Feosol) 325 mg BIDAFTMEAL PO Last administered on 05/15/18at 16 :54; Start 05/15/18 at 09:00 Al Hydroxide/Mg Hydroxide (Mylanta Plus Xs) 15 ml PRN AFTMEALHC PRN PO DYSPEPSIA; Start 05/15/18 at 05:15 Multi-Ingredient Ointment (Analgesic Odell) 1 radha PRN QID PRN TP MUSCLE PAIN; Start 05/15/18 at 05:15 Senna/Docusate Sodium (Senna Plus) 1 tab PRN BID PRN PO CONSTIPATION; Start at 05:15; Stop 05/15/18 at 10:54; Status DC Tramadol HCl (Ultram) 50 mg PRN Q6HRS PRN PO PAIN; Start 05/15/18 at 05:15; Stop 05/15/18 at 10:54; Status DC Atorvastatin Calcium (Lipitor) 5 mg QHS PO ; Start 05/15/18 at 21:00; Stop 05/15 at 21:00; Status DC Bisacodyl (Dulcolax Supp) 10 mg PRN DAILY PRN CO CONSTIPATION; Start 05/15/18 at 05:30 Divalproex Sodium (Depakote Sprinkles) 500 mg DAILY PO ; Start 05/15/18 at 09:00 ; Stop 05/15/18 at 10:54; Status DC Divalproex Sodium (Depakote Sprinkles) 750 mg QHS PO ; Start 05/15/18 at 21:00; Stop 05/15/18 at 21:00; Status DC Duloxetine HCl (Cymbalta) 60 mg DAILY PO ; Start 05/15/18 at 09:00; Stop at 10:54; Status DC Lacosamide (Vimpat) 200 mg BIDAFTMEAL PO ; Start 05/15/18 at 09:00; Stop at 09:00; Status DC Levetiracetam (Keppra) 750 mg BIDAFTMEAL PO ; Start 05/15/18 at 09:00; Stop at 09:00; Status DC Levothyroxine Sodium (Synthroid) 50 mcg DAILY06 PO ; Start 05/15/18 at 06:00; Stop 05/15/18 at 06:00; Status DC Magnesium Hydroxide (Milk Of Magnesia) 2,400 mg PRN QHS PRN PO CONSTIPATION; Start 05/15/18 at 05:30 Magnesium Oxide (Magnesium Oxide) 400 mg TID PO Last administered on 05/15/18at 20:46; Start 05/15/18 at 09:00 Pantoprazole Sodium (Protonix) 40 mg BIDBFRMEAL PO ; Start 05/15/18 at 07:30; Stop 05/15/18 at 07:41; Status DC Phenobarbital (Luminal) 64.8 mg QHS PO ; Start 05/15/18 at 21:00; Stop 05/15/18 at 21:00; Status DC Polyethylene Glycol (miraLAX) 17 gm PRN DAILY PRN PO CONSTIPATION; Start at 09:00; Stop 05/15/18 at 10:54; Status DC Quetiapine Fumarate (SEROquel) 12.5 mg QID PO ; Start 05/15/18 at 09:00; Stop at 10:54; Status DC Trazodone HCl (Desyrel) 50 mg PRN QHS PRN PO INSOMNIA, MAY REPEAT X1; Start at 05:30 Multi-Ingredient Ointment (Analgesic Odell) 1 radha PRN QID PRN TP MUSCLE PAIN; Start 05/15/18 at 05:45; Status UNV Al Hydroxide/Mg Hydroxide (Mylanta Plus Xs) 15 ml PRN AFTMEALHC PRN PO DYSPEPSIA; Start 05/15/18 at 05:45; Status UNV Magnesium Hydroxide (Milk Of Magnesia) 2,400 mg PRN QHS PRN PO CONSTIPATION; Start 05/15/18 at 05:45; Status UNV Levetiracetam (Keppra) 500 mg BID PO Last administered on 05/15/18at 20:46; Start 05/15/18 at 09:00 Levothyroxine Sodium (Synthroid) 75 mcg DAILY06 PO ; Start 05/16/18 at 06:00 Pantoprazole Sodium (Protonix) 20 mg BIDBFRMEAL PO ; Start 05/15/18 at 16:30; Stop 05/15/18 at 16:30; Status DC Phenobarbital (Luminal) 64.8 mg BID PO Last administered on 05/15/18at 20:46; Start 05/15/18 at 09:00 Cetirizine HCl (ZyrTEC) 10 mg HS PO Last administered on 05/15/18at 20:49; Start 05/15/18 at 21:00 Multi-Ingred Cream/Lotion/Oil/ Oint (Hydrocerin) 1 radha PRN Q12HR PRN TP DRY SKIN / SCALING; Start 05/15/18 at 07:30 Guaifenesin (Guaifenesin) 100 mg PRN Q4HRS PRN PO COUGH; Start 05/15/18 at 07: 30; Stop 05/15/18 at 10:54; Status DC Ibuprofen (Motrin) 400 mg PRN Q4HRS PRN PO INFLAMMATION; Start 05/15/18 at 07: 30; Stop 05/15/18 at 11:10; Status DC Olanzapine (ZyPREXA) 5 mg BID PO Last administered on 05/15/18at 20:45; Start at 09:00 Mirtazapine (Remeron) 15 mg QHS PO Last administered on 05/15/18at 20:48; Start 05/15/18 at 21:00 Tramadol HCl (Ultram) 50 mg PRN Q8HRS PRN PO PAIN; Start 05/15/18 at 07:30 Tramadol HCl (Ultram) 50 mg BID PRN PO PAIN; Start 05/15/18 at 07:30; Stop at 10:54; Status DC Lacosamide (Vimpat) 200 mg BID PO Last administered on 05/15/18at 20:45; Start 05/15/18 at 09:00 Calcium Carbonate/ Glycine (Oscal) 500 mg BID PO ; Start 05/15/18 at 21:00; Stop 05/15/18 at 21:00; Status DC Guaifenesin (Robitussin) 100 mg PRN Q4HRS PRN PO COUGH; Start 05/15/18 at 10:30 Ibuprofen (Motrin) 400 mg PRN Q4HRS PRN PO PAIN; Start 05/15/18 at 10:30 Multi-Ingred Cream/Lotion/Oil/ Oint (Hydrocerin) 120 radha PRN Q12HR PRN TP dry skin; Start 05/15/18 at 10:30; Stop 05/15/18 at 11:07; Status DC Tramadol HCl (Ultram) 50 mg BID PRN PO PAIN; Start 05/15/18 at 10:30; Stop at 13:43; Status DC Tramadol HCl (Ultram) 50 mg PRN Q8HRS PRN PO PAIN; Start 05/15/18 at 10:30; Stop 05/15/18 at 11:25; Status DC Non-Formulary Medication (Cetirizine Hcl ) 10 mg QHS PO ; Start 05/15/18 at 21: 00; Stop 05/15/18 at 21:00; Status DC Non-Formulary Medication (Mirtazapine (Remeron)) 15 mg QHS PO ; Start 05/15/18 at 21:00; Stop 05/15/18 at 21:00; Status DC Non-Formulary Medication (Olanzapine ) 5 mg BID PO ; Start 05/15/18 at 21:00; Stop 05/15/18 at 21:00; Status DC Atorvastatin Calcium (Lipitor) 10 mg QHS PO Last administered on 05/15/18at 20: 49; Start 05/15/18 at 21:00 Tramadol HCl (Ultram) 50 mg BID PO Last administered on 05/15/18at 20:49; Start 05/15/18 at 21:00 Pantoprazole Sodium (Protonix) 40 mg DAILYAC PO Last administered on 05/15/18at 12:24; Start 05/15/18 at 11:30 Active Scripts Active Reported Tramadol Hcl (Tramadol HCl) 50 Mg Tablet 50 Mg PO BID PRN Tramadol Hcl (Tramadol HCl) 50 Mg Tablet 50 Mg PO PRN Q8HRS PRN Remeron (Mirtazapine) 15 Mg Tablet 15 Mg PO QHS Olanzapine 5 Mg Tablet 5 Mg PO BID Ibuprofen 400 Mg Tablet 400 Mg PO PRN Q4HRS PRN Guaifenesin 100 Mg/5 Ml Liquid 5 Ml PO PRN Q4HRS PRN Eucerin Creme (Mineral Oil/Petrolatum,White) 120 Gm Cream..g. 120 Gm TP PRN Q12HR PRN Cetirizine Hcl 10 Mg Tablet 10 Mg PO QHS Calcium Carbonate 500 Mg Tablet 500 Mg PO BID Levothyroxine Sodium 50 Mcg Tablet 75 Mcg PO DAILY06 Analgesic Odell (Methyl Salicylate/Menthol) 28 Gm Oint...g. 1 Radha TP PRN QID PRN Mag-Al Plus Xs Suspension (Mag Hydrox/Al Hydrox/Simeth) 30 Ml Oral.susp 15 Ml PO PRN AFTMEALHC PRN Vimpat (Lacosamide) 200 Mg Tablet 200 Mg PO BID Milk Of Magnesia (Magnesium Hydroxide) 2,400 Mg/10 Ml Oral.susp 2,400 Mg PO PRN QHS PRN Atorvastatin Calcium 10 Mg Tablet 10 Mg PO QHS Pantoprazole Sodium 40 Mg Tablet.dr 20 Mg PO BIDBFRMEAL Vitamin D3 (Cholecalciferol (Vitamin D3)) 1,000 Unit Tablet 1,000 Unit PO DAILY Phenobarbital 64.8 Mg Tablet 64.8 Mg PO BID Magnesium Oxide 400 Mg Tablet 400 Mg PO TID Tylenol (Acetaminophen) 325 Mg Tablet 650 Mg PO PRN Q6HRS PRN Keppra (Levetiracetam) 250 Mg Tablet 500 Mg PO BID Ferrous Sulfate 325 Mg Tablet 325 Mg PO BIDAFTMEAL Bisacodyl 10 Mg Supp.rect 10 Mg RC PRN DAILY PRN Felbamate 400 Mg Tablet 400 Mg PO TID I have reviewed the current psychotropics carefully including drug interactions. Risk benefit ratio favors no change other than as noted in my dictated progress note. Diagnosis: Problems: (1) Functional diarrhea (2) urinary tract infection (3) Left hip arthroplasty (4) Severe major depression with psychotic features (5) Adjustment disorder with depressed mood (6) Bipolar affective, mixed (7) Impulse control disorder (8) Dementia, vascular, with delusions (9) Dementia, vascular, with depression HARVEY QUIJANO MD May 15, 2018 22:26
[2018-05-16] MEDS: LEVOTHYROXINE 75 MCG TABLET PO SCH (06:00)
[2018-05-16 06:16] VITALS: BP 91/58
[2018-05-16] MEDS: CHOLECALCIFEROL (VITAMIN D3) 1,000 UNIT TABLET PO SCH (08:23)
[2018-05-16] MEDS: FERROUS SULFATE 325 MG TABLET. PO SCH ×2 (08:23→17:43)
[2018-05-16] MEDS: levETIRAcetam 500 MG TABLET PO SCH ×2 (08:23→19:54)
[2018-05-16] MEDS: CALCIUM CARBONATE 500 MG TABLET PO SCH ×2 (08:23→17:43)
[2018-05-16] MEDS: OLANZapine 5 MG TABLET PO SCH ×2 (08:24→19:54)
[2018-05-16] MEDS: MAGNESIUM OXIDE 400 MG TABLET PO SCH ×3 (08:24→19:54)
[2018-05-16] MEDS: PANTOPRAZOLE 40 MG TABLET. PO SCH (08:24)
[2018-05-16] MEDS: FELBAMATE 400 MG TABLET PO SCH ×3 (08:28→19:53)
[2018-05-16] MEDS: LACOSAMIDE 50 MG TABLET PO SCH ×2 (08:29→19:54)
[2018-05-16] MEDS: PHENobarbital 32.4 MG TABLET. PO SCH ×2 (08:29→19:54)
[2018-05-16] MEDS: traMADol 50 MG TABLET PO SCH ×2 (08:29→19:53)
--- NOTE | 2018-05-16 09:53 | NUR ---
PSYCHOSOCIAL ASSESSMENT ADMISSION DATE: 05/15/18 CONTACT INFORMATION: DPOA/Guardian Contact Name: Contact Address: Contact Phone #: [phone] ETHNIC ORIGIN: REASONS FOR ADMISSION: Aggressive Agitated Combative Poor impulse control ADDITIONAL ADMISSION COMMENTS: REASON FOR ADMISSION IN PATIENT/FAMILY'S OWN WORDS: The facility has been moving her too much and she's had a ton of medication changes. She's having behaviors that maybe they cannot handle. PATIENT/FAMILY EXPECTATIONS FOR ADMISSION: Get her stable on the right medications and have her in an environment she can thrive. LIVING SITUATION: Patient lives with: [facility] Contact Name: Kylee (Zoltan) Contact Address: [address] [place] [id number] Contact Phone #: [phone] Contact Fax #: FAMILY RELATIONS: Marital Status: # of Marriages: 1 # of Children: 1 [facility] Family Support: Concerned Cooperative Involved in DC Planning Additional Comments r/t Family: Pt was to her for over 20 years.They met each other growing up in [place]; after the 2 met, they moved to [facility] and has been there since. Pt has been a [employer] her whole life as pt was unable to work due to seizures. Pt due to Systemic Amylodosis. The two had one son, Kaushik. SIGNIFICANT PSYCHIATRIC/MEDICAL HISTORY: Psychiatric/Treatment History: This is pt 2nd admission to [facility]. Pt has had previous pysch admissions at [facility] in [place] and [facility] in . Pt has a TBI from a previous fall and multiple brain surgeries and has a previous diagnosis of Dementia. Pt son reports that pt was diagnosed with Bipolar D/O at [facility]. Pertinent Family History: Pt was one of 4 girls. 3 of her siblings have passed and one lives near [place], [place]. Pt had another sister who also had seizures. According to pt last stay, pt son reports that pt would have seizures daily and he was home to witness over half of them. HISTORICAL DATA: Childhood Environment: Nurturing Supportive Comment: Both of pt parents have , according to pt son of old age. Pt had 4 sisters, all who have but 1. Psychological Abuse: None Additional Comments: Drug Abuse History last 12 months: No Comment: PERSONAL HISTORY: Vocational history: [employer] service: [employer] background: [employer] Sexual orientation: Heterosexual Educational Level: High school Past/Present Interests/Hobbies: Loves all [employer] sports; although pt has stopped following them as she can no longer understand what is going on. Word searches, crocheting/knitting. Financial support/resources: SS Disability Monthly income: Person handling finances: Pt son Kaushik Do you have a history of legal problems: N Cultural considerations: None SOCIAL RELATIONSHIPS-CURRENT/PAST: Psychiatrist: PCP: Dr. Newberry Counselor/Therapist: [facility]: Support Group: Director Construction Services/Head Chef: Other relationships: STRENGTHS & WEAKNESSES: Patient's strengths: Good family support Good verbal skills Other patient strengths: can express her needs Patient's weaknesses: Lack of resources Impulsive Health problems Other patient weaknesses: PRELIMINARY PLAN OF TREATMENT: Preliminary plan: Promote Coping Skill Medication Stabilization Control abnormal behavior Other preliminary treatment comments: DISCHARGE PLANNING: Discharge planning/disposition: Other Placement Needed Additional discharge needs identified: Pt previous facility is wanting to have pt evaluated for a level II. ADDITIONAL INFORMATION: Other Pertinent Data: Please see the note SW posted on pt son dated 05/15/18.
--- NOTE | 2018-05-16 11:00 | NUR ---
PATTI spoke with Leanne at [facility]. They planned to start the level II process for pt and asked if we agreed to that process. PATTI explained that pt had only been on the unit for 24 hours and will still be going under assessment. In pt last admission, she did not receive a diagnosis that would qualify pt for a Level II facility. PATTI would have to discuss this with the physician and the rest of the team to see if this would be supported and get back to Leanne with that answer.
[2018-05-16 16:01] VITALS: BP 101/68
[2018-05-16] MEDS: busPIRone 5 MG TABLET. PO SCH (17:45)
--- NOTE | 2018-05-16 18:01 | NUR ---
Behavior Intervention Response and Plan: BIRP Note: Behavior: Assumed Care of patient, patient located in Day Room at shift change. Patient exhibited the following behavior Calm, Resistive, Withdrawn. Brief assessment on rounds of vital signs, medication needs, lab studies, and pain. Treatment plan problems . Intervention: Patient assessed and the following interventions initiated safety checks 15 Minute Checks Head to toe Assessment , Cognitive Assessment , Cognitive Assessment. Response: After interactions and interventions patient responded in the following manner, Compliant , Calm ,Withdrawn. Continue to assess behaviors and condition will continue to monitor throughout the shift as needed. Patient educated on ADL's, and hand hygiene. Plan: Continue to monitor Master Treatment Plan for patient's progress toward short term goals of Decreased Agitation, Improved Mood, terminal computer operator goals to return to previous living setting vs placement. Continue to assess patient for changes in above assessment. Monitor for medication needs, pain, and safety concerns. Hourly rounding performed to ensure safe environment.
[2018-05-16] MEDS: ATORVASTATIN CALCIUM 10 MG TABLET. PO SCH (19:53)
[2018-05-16] MEDS: MIRTAZAPINE 15 MG TABLET PO SCH (19:54)
[2018-05-16] MEDS: CETIRIZINE HCL 10 MG TABLET PO SCH (19:54)
--- NOTE | 2018-05-16 22:23 | CONS ---
DATE OF CONSULTATION: 05/15/2018 REASON FOR CONSULTATION: Medical management. HISTORY OF PRESENT ILLNESS: The patient is a 63-year-old female patient, a resident at [facility] who was admitted to this unit again for an account of increasingly out of control, unmanageable behavior. She was refusing her psychotropics. She was violent and having verbal altercation with staff and resident. She was then managed by the facility and had failed a very recent psychiatric stabilization at [facility], having been discharged from the inpatient service on 05/08/2018. She is here for inpatient psychiatric stabilization. PAST PSYCHIATRIC HISTORY: Significant for bipolar disorder versus schizoaffective disorder. She has been here before and at various nursing homes and has most recently been at [facility]. She has been increasingly violent with verbal altercation with staff and residents, refusing medication including phenobarbital for seizures, raising a significant risk for her health. She has had some sleep and appetite changes; however, no active suicidal or homicidal ideation. PAST MEDICAL HISTORY: Significant for seizure disorder, hyperlipidemia, traumatic subdural hematoma, history of GI bleed, muscle weakness, recurrent falls. She is status post fracture of T1 vertebrae. FAMILY HISTORY: Noncontributory. SOCIAL HISTORY: She has been a resident at [facility]. She apparently does not smoke, drink alcohol, or use any recreational drugs. REVIEW OF SYSTEMS: As per history of present illness. ALLERGIES: She is allergic to CLOBAZAM, HYDROCODONE, and VANCOMYCIN. MEDICATIONS: She is currently on the following medication: Cetirizine 10 mg at bedtime, ferrous sulfate 325 mg twice a day, atorvastatin calcium 10 mg at bedtime, ibuprofen 400 mg every 4 hours, analgesic balm applied topically 4 times a day, tramadol 50 mg q.8 hourly, acetaminophen 650 mg every 6 hours, felbamate 400 mg 3 times a day for seizures, lacosamide for Vimpat 200 mg twice a day, Keppra 500 mg twice a day, mirtazapine 50 mg at bedtime, olanzapine 5 mg p.o. b.i.d., phenobarbital 64.8 mg twice a day, calcium carbonate 500 mg twice a day, expectorant for guaifenesin 500 mg every 4 hours. She is on Mylanta 15 mL after meals. She is on magnesium oxide 400 mg 3 times a day, bisacodyl 10 mg rectally daily p.r.n. for constipation, milk of magnesia 30 mL p.o. daily p.r.n. constipation, Protonix 40 mg twice a day, levothyroxine 75 mcg daily, Eucerin cream applied topically twice a day, cholecalciferol 1000 International Unit once a day. PHYSICAL EXAMINATION: GENERAL: On examining her, she was sitting in her wheelchair comfortably, in no apparent distress. She was definitely pale, cachectic, but no jaundice or cyanosis. No lymphadenopathy, no thyromegaly. No jugular venous distension. No lower limb edema. VITAL SIGNS: Her heart rate was 66, blood pressure was 104/72, temperature was 97.4, respiratory rate was 20, and oxygen saturation was 98% on room air. HEAD: Showed normocephalic, atraumatic. NECK: Supple. HEART: Showed normal first and second heart sounds. No gallop, rub or murmur. CHEST: Clear to auscultation. No crepitation or rhonchi. ABDOMEN: Distended, soft, nontender. No guarding or rigidity. No organomegaly. All hernial orifices intact. Bowel sounds normal. NEUROLOGIC: She is awake, alert. Somehow she has a mask face and reduced blinking; however, all her cranial nerves are intact. She moves upper extremities to much good extent than lower extremities. She is mostly bedbound, chair bound. LABORATORY DATA: Her lab work showed a white cell count of 6900, hemoglobin 12, hematocrit 36, MCV 97, and platelet count 277,000. Her chemistry showed a serum sodium 142, potassium 3.8, chloride 103, bicarbonate 28, anion gap of 11, BUN 22, creatinine 0.9, estimated GFR was 63 mL per minute. Her glucose was 97. Calcium was 9.2. TSH slightly elevated at 4.95, however, her total T4 and total T3 are normal. Her 25-hydroxyvitamin D was normal at 44.8. Her serum iron was 44. TIBC was 289, iron saturation was only 15%. Her triglycerides were 110, total cholesterol 181, LDL cholesterol 107, VLDL was 22, HDL cholesterol was 52 and the ratio was 3. Magnesium was 2.3. Urinalysis was essentially unremarkable and urine toxic screen showed the phenytoin to be less than 0.6. Her Treponema pallidum antibodies were nonreactive. IMPRESSION: In summary, this is a 63-year-old female patient who resides at [facility] who was admitted on account of increasingly being out of control and unmanageable behavior. She was refusing her past psychotropics, was violent, and having verbal altercation with staff and resident. She was unmanageable at the facility and had failed a very recent psychiatric hospitalization at [facility]. She was discharged from there on 05/08/2017 and she is here for inpatient psychiatric stabilization. Medically, she has history significant for seizure disorder, gastroesophageal reflux disease as well as hypothyroidism; however, all in all, she seemed to be medically stable. Her vital signs are within normal range as well as her lab work. I will obviously follow all her lab works that are still pending at the time of this dictation and make any needed recommendations. Thank you, Dr. Lopes, for allowing me to participate in the care of this patient. JOHNIE LANDERS MD DR: DORIAN/eboni JOB#: [id number] / [id number]
--- NOTE | 2018-05-16 22:49 | PDOC ---
Exam Note: David Note: Please also refer to the separate dictated note~for this date of service dictated separately.~Patient seen individually. Discussed the patient with Nursing staff reviewed the chart.~Reviewed interim history and current functioning. Reviewed vital signs,~Labs/ Radiology~and current medications noted below. Continue current treatment with the changes noted in the dictated addendum note Assessment: Vital Signs: Vital Signs Date Time Temp Pulse Resp B/P (MAP) Pulse Ox O2 Delivery O2 Flow Rate FiO2 05/16/18 20:53 96 05/16/18 16:01 97.1 63 18 101/68 (79) Room Air I&O Intake and Output 05/16/18 07:01 Intake Total 845 ml Balance 845 ml Intake Oral 845 ml Current Medications: Meds: Current Medications Haloperidol Lactate (Haldol) 5 mg 1X ONCE IM Last administered on 05/15/18at 00 :47; Start 05/15/18 at 01:00; Stop 05/15/18 at 01:01; Status DC Diphenhydramine HCl (Benadryl) 50 mg 1X ONCE IM Last administered on at 00:47; Start 05/15/18 at 01:00; Stop 05/15/18 at 01:01; Status DC Lorazepam (Ativan) 2 mg 1X ONCE IM Last administered on 05/15/18at 00:46; Start 05/15/18 at 00:30; Stop 05/15/18 at 00:51; Status DC Acetaminophen (Tylenol) 650 mg PRN Q4HRS PRN PO FEVER; Start 05/15/18 at 02:15 ; Stop 05/15/18 at 05:14; Status DC Acetaminophen (Tylenol) 650 mg PRN Q6HRS PRN PO PAIN / TEMP; Start 05/15/18 at 05:15 Calcium Carbonate/ Glycine (Oscal) 500 mg BIDWMEALS PO Last administered on 05/16at 17:43; Start 05/15/18 at 08:00 Vitamin D (Vitamin D3) 1,000 unit DAILY PO Last administered on 05/16/18at 08:23 ; Start 05/15/18 at 09:00 Felbamate (Felbatol) 400 mg TID PO Last administered on 05/16/18at 19:53; Start 05/15/18 at 09:00 Ferrous Sulfate (Feosol) 325 mg BIDAFTMEAL PO Last administered on 05/16/18at 17: 43; Start 05/15/18 at 09:00 Al Hydroxide/Mg Hydroxide (Mylanta Plus Xs) 15 ml PRN AFTMEALHC PRN PO DYSPEPSIA; Start 05/15/18 at 05:15 Multi-Ingredient Ointment (Analgesic [place]) 1 radha PRN QID PRN TP MUSCLE PAIN; Start 05/15/18 at 05:15 Senna/Docusate Sodium (Senna Plus) 1 tab PRN BID PRN PO CONSTIPATION; Start at 05:15; Stop 05/15/18 at 10:54; Status DC Tramadol HCl (Ultram) 50 mg PRN Q6HRS PRN PO PAIN; Start 05/15/18 at 05:15; Stop 05/15/18 at 10:54; Status DC Atorvastatin Calcium (Lipitor) 5 mg QHS PO ; Start 05/15/18 at 21:00; Stop 05/15 at 21:00; Status DC Bisacodyl (Dulcolax Supp) 10 mg PRN DAILY PRN [place] CONSTIPATION; Start 05/15/18 at 05:30 Divalproex Sodium (Depakote Sprinkles) 500 mg DAILY PO ; Start 05/15/18 at 09:00 ; Stop 05/15/18 at 10:54; Status DC Divalproex Sodium (Depakote Sprinkles) 750 mg QHS PO ; Start 05/15/18 at 21:00; Stop 05/15/18 at 21:00; Status DC Duloxetine HCl (Cymbalta) 60 mg DAILY PO ; Start 05/15/18 at 09:00; Stop at 10:54; Status DC Lacosamide (Vimpat) 200 mg BIDAFTMEAL PO ; Start 05/15/18 at 09:00; Stop at 09:00; Status DC Levetiracetam (Keppra) 750 mg BIDAFTMEAL PO ; Start 05/15/18 at 09:00; Stop at 09:00; Status DC Levothyroxine Sodium (Synthroid) 50 mcg DAILY06 PO ; Start 05/15/18 at 06:00; Stop 05/15/18 at 06:00; Status DC Magnesium Hydroxide (Milk Of Magnesia) 2,400 mg PRN QHS PRN PO CONSTIPATION; Start 05/15/18 at 05:30 Magnesium Oxide (Magnesium Oxide) 400 mg TID PO Last administered on 05/16/18at 19:54; Start 05/15/18 at 09:00 Pantoprazole Sodium (Protonix) 40 mg BIDBFRMEAL PO ; Start 05/15/18 at 07:30; Stop 05/15/18 at 07:41; Status DC Phenobarbital (Luminal) 64.8 mg QHS PO ; Start 05/15/18 at 21:00; Stop 05/15/18 at 21:00; Status DC Polyethylene Glycol (miraLAX) 17 gm PRN DAILY PRN PO CONSTIPATION; Start at 09:00; Stop 05/15/18 at 10:54; Status DC Quetiapine Fumarate (SEROquel) 12.5 mg QID PO ; Start 05/15/18 at 09:00; Stop at 10:54; Status DC Trazodone HCl (Desyrel) 50 mg PRN QHS PRN PO INSOMNIA, MAY REPEAT X1; Start at 05:30 Multi-Ingredient Ointment (Analgesic [place]) 1 radha PRN QID PRN TP MUSCLE PAIN; Start 05/15/18 at 05:45; Status UNV Al Hydroxide/Mg Hydroxide (Mylanta Plus Xs) 15 ml PRN AFTMEALHC PRN PO DYSPEPSIA; Start 05/15/18 at 05:45; Status UNV Magnesium Hydroxide (Milk Of Magnesia) 2,400 mg PRN QHS PRN PO CONSTIPATION; Start 05/15/18 at 05:45; Status UNV Levetiracetam (Keppra) 500 mg BID PO Last administered on 05/16/18at 19:54; Start 05/15/18 at 09:00 Levothyroxine Sodium (Synthroid) 75 mcg DAILY06 PO Last administered on at 06:00; Start 05/16/18 at 06:00 Pantoprazole Sodium (Protonix) 20 mg BIDBFRMEAL PO ; Start 05/15/18 at 16:30; Stop 05/15/18 at 16:30; Status DC Phenobarbital (Luminal) 64.8 mg BID PO Last administered on 05/16/18 19:54; Start 05/15/18 at 09:00 Cetirizine HCl (ZyrTEC) 10 mg HS PO Last administered on 05/16/18 19:54; Start 05/15/18 at 21:00 Multi-Ingred Cream/Lotion/Oil/ Oint (Hydrocerin) 1 radha PRN Q12HR PRN TP DRY SKIN / SCALING; Start 05/15/18 at 07:30 Guaifenesin (Guaifenesin) 100 mg PRN Q4HRS PRN PO COUGH; Start 05/15/18 at 07: 30; Stop 05/15/18 at 10:54; Status DC Ibuprofen (Motrin) 400 mg PRN Q4HRS PRN PO INFLAMMATION; Start 05/15/18 at 07: 30; Stop 05/15/18 at 11:10; Status DC Olanzapine (ZyPREXA) 5 mg BID PO Last administered on 05/16/18 19:54; Start at 09:00 Mirtazapine (Remeron) 15 mg QHS PO Last administered on 05/16/18 19:54; Start 05/15/18 at 21:00 Tramadol HCl (Ultram) 50 mg PRN Q8HRS PRN PO PAIN; Start 05/15/18 at 07:30 Tramadol HCl (Ultram) 50 mg BID PRN PO PAIN; Start 05/15/18 at 07:30; Stop at 10:54; Status DC Lacosamide (Vimpat) 200 mg BID PO Last administered on 05/16/18 19:54; Start at 09:00 Calcium Carbonate/ Glycine (Oscal) 500 mg BID PO ; Start 05/15/18 at 21:00; Stop 05/15/18 at 21:00; Status DC Guaifenesin (Robitussin) 100 mg PRN Q4HRS PRN PO COUGH; Start 05/15/18 at 10:30 Ibuprofen (Motrin) 400 mg PRN Q4HRS PRN PO PAIN; Start 05/15/18 at 10:30 Multi-Ingred Cream/Lotion/Oil/ Oint (Hydrocerin) 120 radha PRN Q12HR PRN TP dry skin; Start 05/15/18 at 10:30; Stop 05/15/18 at 11:07; Status DC Tramadol HCl (Ultram) 50 mg BID PRN PO PAIN; Start 05/15/18 at 10:30; Stop at 13:43; Status DC Tramadol HCl (Ultram) 50 mg PRN Q8HRS PRN PO PAIN; Start 05/15/18 at 10:30; Stop 05/15/18 at 11:25; Status DC Non-Formulary Medication (Cetirizine Hcl ) 10 mg QHS PO ; Start 05/15/18 at 21: 00; Stop 05/15/18 at 21:00; Status DC Non-Formulary Medication (Mirtazapine (Remeron)) 15 mg QHS PO ; Start 05/15/18 at 21:00; Stop 05/15/18 at 21:00; Status DC Non-Formulary Medication (Olanzapine ) 5 mg BID PO ; Start 05/15/18 at 21:00; Stop 05/15/18 at 21:00; Status DC Atorvastatin Calcium (Lipitor) 10 mg QHS PO Last administered on 05/16/18at 19:53 ; Start 05/15/18 at 21:00 Tramadol HCl (Ultram) 50 mg BID PO Last administered on 05/16/18at 19:53; Start 05/15/18 at 21:00 Pantoprazole Sodium (Protonix) 40 mg DAILYAC PO Last administered on 05/16/18at 08:24; Start 05/15/18 at 11:30 Buspirone HCl (Buspar) 5 mg BIDWBK/JIN PO Last administered on 05/16/18at 17:45 ; Start 05/16/18 at 17:00 Active Scripts Active Reported Tramadol Hcl (Tramadol HCl) 50 Mg Tablet 50 Mg PO BID PRN Tramadol Hcl (Tramadol HCl) 50 Mg Tablet 50 Mg PO PRN Q8HRS PRN Remeron (Mirtazapine) 15 Mg Tablet 15 Mg PO QHS Olanzapine 5 Mg Tablet 5 Mg PO BID Ibuprofen 400 Mg Tablet 400 Mg PO PRN Q4HRS PRN Guaifenesin 100 Mg/5 Ml Liquid 5 Ml PO PRN Q4HRS PRN Eucerin Creme (Mineral Oil/Petrolatum,White) 120 Gm Cream..g. 120 Gm TP PRN Q12HR PRN Cetirizine Hcl 10 Mg Tablet 10 Mg PO QHS Calcium Carbonate 500 Mg Tablet 500 Mg PO BID Levothyroxine Sodium 50 Mcg Tablet 75 Mcg PO DAILY06 Analgesic [place] (Methyl Salicylate/Menthol) 28 Gm Oint...g. 1 Radha TP PRN QID PRN Mag-Al Plus Xs Suspension (Mag Hydrox/Al Hydrox/Simeth) 30 Ml Oral.susp 15 Ml PO PRN AFTMEALHC PRN Vimpat (Lacosamide) 200 Mg Tablet 200 Mg PO BID Milk Of Magnesia (Magnesium Hydroxide) 2,400 Mg/10 Ml Oral.susp 2,400 Mg PO PRN QHS PRN Atorvastatin Calcium 10 Mg Tablet 10 Mg PO QHS Pantoprazole Sodium 40 Mg Tablet.dr 20 Mg PO BIDBFRMEAL Vitamin D3 (Cholecalciferol (Vitamin D3)) 1,000 Unit Tablet 1,000 Unit PO DAILY Phenobarbital 64.8 Mg Tablet 64.8 Mg PO BID Magnesium Oxide 400 Mg Tablet 400 Mg PO TID Tylenol (Acetaminophen) 325 Mg Tablet 650 Mg PO PRN Q6HRS PRN Keppra (Levetiracetam) 250 Mg Tablet 500 Mg PO BID Ferrous Sulfate 325 Mg Tablet 325 Mg PO BIDAFTMEAL Bisacodyl 10 Mg Supp.rect 10 Mg RC PRN DAILY PRN Felbamate 400 Mg Tablet 400 Mg PO TID I have reviewed the current psychotropics carefully including drug interactions. Risk benefit ratio favors no change other than as noted in my dictated progress note. Diagnosis: Problems: (1) Functional diarrhea (2) urinary tract infection (3) Left hip arthroplasty (4) Severe major depression with psychotic features (5) Adjustment disorder with depressed mood (6) Bipolar affective, mixed (7) Impulse control disorder (8) Dementia, vascular, with delusions (9) Dementia, vascular, with depression HARVEY QUIJANO MD May 16, 2018 22:49
[2018-05-17] MEDS: LEVOTHYROXINE 75 MCG TABLET PO SCH (05:45)
[2018-05-17 06:04] VITALS: BP 90/57
[2018-05-17] MEDS: MAGNESIUM OXIDE 400 MG TABLET PO SCH ×3 (07:30→19:55)
[2018-05-17] MEDS: CHOLECALCIFEROL (VITAMIN D3) 1,000 UNIT TABLET PO SCH (07:30)
[2018-05-17] MEDS: FELBAMATE 400 MG TABLET PO SCH ×3 (07:31→19:54)
[2018-05-17] MEDS: PANTOPRAZOLE 40 MG TABLET. PO SCH (07:32)
[2018-05-17] MEDS: levETIRAcetam 500 MG TABLET PO SCH ×2 (07:32→19:55)
[2018-05-17] MEDS: traMADol 50 MG TABLET PO SCH ×2 (07:33→19:55)
[2018-05-17] MEDS: PHENobarbital 32.4 MG TABLET. PO SCH ×2 (07:34→19:54)
[2018-05-17] MEDS: busPIRone 5 MG TABLET. PO SCH ×2 (07:34→12:39)
[2018-05-17] MEDS: OLANZapine 5 MG TABLET PO SCH ×2 (07:34→19:55)
[2018-05-17] MEDS: LACOSAMIDE 50 MG TABLET PO SCH ×2 (07:34→19:54)
[2018-05-17] MEDS: CALCIUM CARBONATE 500 MG TABLET PO SCH ×2 (07:34→17:07)
[2018-05-17] MEDS: FERROUS SULFATE 325 MG TABLET. PO SCH ×2 (07:34→17:07)
[2018-05-17 15:48] VITALS: BP 100/62
[2018-05-17] MEDS: CETIRIZINE HCL 10 MG TABLET PO SCH (19:55)
[2018-05-17] MEDS: ATORVASTATIN CALCIUM 10 MG TABLET. PO SCH (19:55)
[2018-05-17] MEDS: MIRTAZAPINE 15 MG TABLET PO SCH (19:55)
--- NOTE | 2018-05-17 21:00 | NUR ---
Pt repeatedly refused medications until right before bedtime. She allowed me to administer meds after offering orange juice and vanilla ice cream. She expressed she did not want to be in the day room where there was so much going on.
--- NOTE | 2018-05-17 22:18 | PDOC ---
Exam Note: David Note: Please also refer to the separate dictated note~for this date of service dictated separately.~Patient seen individually. Discussed the patient with Nursing staff reviewed the chart.~Reviewed interim history and current functioning. Reviewed vital signs,~Labs/ Radiology~and current medications noted below. Continue current treatment with the changes noted in the dictated addendum note Assessment: Vital Signs: Vital Signs Date Time Temp Pulse Resp B/P (MAP) Pulse Ox O2 Delivery O2 Flow Rate FiO2 05/17/18 21:54 20 96 05/17/18 15:48 97.2 64 100/62 (75) Room Air I&O Intake and Output 05/17/18 07:01 Intake Total 1200 ml Balance 1200 ml Intake Oral 1200 ml Current Medications: Meds: Current Medications Haloperidol Lactate (Haldol) 5 mg 1X ONCE IM Last administered on 05/15/18at 00 :47; Start 05/15/18 at 01:00; Stop 05/15/18 at 01:01; Status DC Diphenhydramine HCl (Benadryl) 50 mg 1X ONCE IM Last administered on at 00:47; Start 05/15/18 at 01:00; Stop 05/15/18 at 01:01; Status DC Lorazepam (Ativan) 2 mg 1X ONCE IM Last administered on 05/15/18at 00:46; Start 05/15/18 at 00:30; Stop 05/15/18 at 00:51; Status DC Acetaminophen (Tylenol) 650 mg PRN Q4HRS PRN PO FEVER; Start 05/15/18 at 02:15 ; Stop 05/15/18 at 05:14; Status DC Acetaminophen (Tylenol) 650 mg PRN Q6HRS PRN PO PAIN / TEMP; Start 05/15/18 at 05:15 Calcium Carbonate/ Glycine (Oscal) 500 mg BIDWMEALS PO Last administered on 05/17at 17:07; Start 05/15/18 at 08:00 Vitamin D (Vitamin D3) 1,000 unit DAILY PO Last administered on 05/17/18at 07:30 ; Start 05/15/18 at 09:00 Felbamate (Felbatol) 400 mg TID PO Last administered on 05/17/18at 19:54; Start 05/15/18 at 09:00 Ferrous Sulfate (Feosol) 325 mg BIDAFTMEAL PO Last administered on 05/17/18at 17: 07; Start 05/15/18 at 09:00 Al Hydroxide/Mg Hydroxide (Mylanta Plus Xs) 15 ml PRN AFTMEALHC PRN PO DYSPEPSIA; Start 05/15/18 at 05:15 Multi-Ingredient Ointment (Analgesic [place]) 1 radha PRN QID PRN TP MUSCLE PAIN; Start 05/15/18 at 05:15 Senna/Docusate Sodium (Senna Plus) 1 tab PRN BID PRN PO CONSTIPATION; Start at 05:15; Stop 05/15/18 at 10:54; Status DC Tramadol HCl (Ultram) 50 mg PRN Q6HRS PRN PO PAIN; Start 05/15/18 at 05:15; Stop 05/15/18 at 10:54; Status DC Atorvastatin Calcium (Lipitor) 5 mg QHS PO ; Start 05/15/18 at 21:00; Stop 05/15 at 21:00; Status DC Bisacodyl (Dulcolax Supp) 10 mg PRN DAILY PRN [place] CONSTIPATION; Start 05/15/18 at 05:30 Divalproex Sodium (Depakote Sprinkles) 500 mg DAILY PO ; Start 05/15/18 at 09:00 ; Stop 05/15/18 at 10:54; Status DC Divalproex Sodium (Depakote Sprinkles) 750 mg QHS PO ; Start 05/15/18 at 21:00; Stop 05/15/18 at 21:00; Status DC Duloxetine HCl (Cymbalta) 60 mg DAILY PO ; Start 05/15/18 at 09:00; Stop at 10:54; Status DC Lacosamide (Vimpat) 200 mg BIDAFTMEAL PO ; Start 05/15/18 at 09:00; Stop at 09:00; Status DC Levetiracetam (Keppra) 750 mg BIDAFTMEAL PO ; Start 05/15/18 at 09:00; Stop at 09:00; Status DC Levothyroxine Sodium (Synthroid) 50 mcg DAILY06 PO ; Start 05/15/18 at 06:00; Stop 05/15/18 at 06:00; Status DC Magnesium Hydroxide (Milk Of Magnesia) 2,400 mg PRN QHS PRN PO CONSTIPATION; Start 05/15/18 at 05:30 Magnesium Oxide (Magnesium Oxide) 400 mg TID PO Last administered on 05/17/18at 19:55; Start 05/15/18 at 09:00 Pantoprazole Sodium (Protonix) 40 mg BIDBFRMEAL PO ; Start 05/15/18 at 07:30; Stop 05/15/18 at 07:41; Status DC Phenobarbital (Luminal) 64.8 mg QHS PO ; Start 05/15/18 at 21:00; Stop 05/15/18 at 21:00; Status DC Polyethylene Glycol (miraLAX) 17 gm PRN DAILY PRN PO CONSTIPATION; Start at 09:00; Stop 05/15/18 at 10:54; Status DC Quetiapine Fumarate (SEROquel) 12.5 mg QID PO ; Start 05/15/18 at 09:00; Stop at 10:54; Status DC Trazodone HCl (Desyrel) 50 mg PRN QHS PRN PO INSOMNIA, MAY REPEAT X1; Start at 05:30 Multi-Ingredient Ointment (Analgesic [place]) 1 radha PRN QID PRN TP MUSCLE PAIN; Start 05/15/18 at 05:45; Status UNV Al Hydroxide/Mg Hydroxide (Mylanta Plus Xs) 15 ml PRN AFTMEALHC PRN PO DYSPEPSIA; Start 05/15/18 at 05:45; Status UNV Magnesium Hydroxide (Milk Of Magnesia) 2,400 mg PRN QHS PRN PO CONSTIPATION; Start 05/15/18 at 05:45; Status UNV Levetiracetam (Keppra) 500 mg BID PO Last administered on 05/17/18at 19:55; Start 05/15/18 at 09:00 Levothyroxine Sodium (Synthroid) 75 mcg DAILY06 PO Last administered on at 05:45; Start 05/16/18 at 06:00 Pantoprazole Sodium (Protonix) 20 mg BIDBFRMEAL PO ; Start 05/15/18 at 16:30; Stop 05/15/18 at 16:30; Status DC Phenobarbital (Luminal) 64.8 mg BID PO Last administered on 05/17/18 19:54; Start 05/15/18 at 09:00 Cetirizine HCl (ZyrTEC) 10 mg HS PO Last administered on 05/17/18 19:55; Start 05/15/18 at 21:00 Multi-Ingred Cream/Lotion/Oil/ Oint (Hydrocerin) 1 radha PRN Q12HR PRN TP DRY SKIN / SCALING; Start 05/15/18 at 07:30 Guaifenesin (Guaifenesin) 100 mg PRN Q4HRS PRN PO COUGH; Start 05/15/18 at 07: 30; Stop 05/15/18 at 10:54; Status DC Ibuprofen (Motrin) 400 mg PRN Q4HRS PRN PO INFLAMMATION; Start 05/15/18 at 07: 30; Stop 05/15/18 at 11:10; Status DC Olanzapine (ZyPREXA) 5 mg BID PO Last administered on 05/17/18 19:55; Start at 09:00 Mirtazapine (Remeron) 15 mg QHS PO Last administered on 05/17/18 19:55; Start 05/15/18 at 21:00 Tramadol HCl (Ultram) 50 mg PRN Q8HRS PRN PO PAIN; Start 05/15/18 at 07:30 Tramadol HCl (Ultram) 50 mg BID PRN PO PAIN; Start 05/15/18 at 07:30; Stop at 10:54; Status DC Lacosamide (Vimpat) 200 mg BID PO Last administered on 05/17/18 19:54; Start at 09:00 Calcium Carbonate/ Glycine (Oscal) 500 mg BID PO ; Start 05/15/18 at 21:00; Stop 05/15/18 at 21:00; Status DC Guaifenesin (Robitussin) 100 mg PRN Q4HRS PRN PO COUGH; Start 05/15/18 at 10:30 Ibuprofen (Motrin) 400 mg PRN Q4HRS PRN PO PAIN; Start 05/15/18 at 10:30 Multi-Ingred Cream/Lotion/Oil/ Oint (Hydrocerin) 120 radha PRN Q12HR PRN TP dry skin; Start 05/15/18 at 10:30; Stop 05/15/18 at 11:07; Status DC Tramadol HCl (Ultram) 50 mg BID PRN PO PAIN; Start 05/15/18 at 10:30; Stop at 13:43; Status DC Tramadol HCl (Ultram) 50 mg PRN Q8HRS PRN PO PAIN; Start 05/15/18 at 10:30; Stop 05/15/18 at 11:25; Status DC Non-Formulary Medication (Cetirizine Hcl ) 10 mg QHS PO ; Start 05/15/18 at 21: 00; Stop 05/15/18 at 21:00; Status DC Non-Formulary Medication (Mirtazapine (Remeron)) 15 mg QHS PO ; Start 05/15/18 at 21:00; Stop 05/15/18 at 21:00; Status DC Non-Formulary Medication (Olanzapine ) 5 mg BID PO ; Start 05/15/18 at 21:00; Stop 05/15/18 at 21:00; Status DC Atorvastatin Calcium (Lipitor) 10 mg QHS PO Last administered on 05/17/18at 19:55 ; Start 05/15/18 at 21:00 Tramadol HCl (Ultram) 50 mg BID PO Last administered on 05/17/18at 19:55; Start 05/15/18 at 21:00 Pantoprazole Sodium (Protonix) 40 mg DAILYAC PO Last administered on 05/17/18at 07:32; Start 05/15/18 at 11:30 Buspirone HCl (Buspar) 5 mg BIDWBK/ PO Last administered on 05/17/18at 12:39 ; Start 05/16/18 at 17:00 Active Scripts Active Reported Tramadol Hcl (Tramadol HCl) 50 Mg Tablet 50 Mg PO BID PRN Tramadol Hcl (Tramadol HCl) 50 Mg Tablet 50 Mg PO PRN Q8HRS PRN Remeron (Mirtazapine) 15 Mg Tablet 15 Mg PO QHS Olanzapine 5 Mg Tablet 5 Mg PO BID Ibuprofen 400 Mg Tablet 400 Mg PO PRN Q4HRS PRN Guaifenesin 100 Mg/5 Ml Liquid 5 Ml PO PRN Q4HRS PRN Eucerin Creme (Mineral Oil/Petrolatum,White) 120 Gm Cream..g. 120 Gm TP PRN Q12HR PRN Cetirizine Hcl 10 Mg Tablet 10 Mg PO QHS Calcium Carbonate 500 Mg Tablet 500 Mg PO BID Levothyroxine Sodium 50 Mcg Tablet 75 Mcg PO DAILY06 Analgesic [place] (Methyl Salicylate/Menthol) 28 Gm Oint...g. 1 Radha TP PRN QID PRN Mag-Al Plus Xs Suspension (Mag Hydrox/Al Hydrox/Simeth) 30 Ml Oral.susp 15 Ml PO PRN AFTMEALHC PRN Vimpat (Lacosamide) 200 Mg Tablet 200 Mg PO BID Milk Of Magnesia (Magnesium Hydroxide) 2,400 Mg/10 Ml Oral.susp 2,400 Mg PO PRN QHS PRN Atorvastatin Calcium 10 Mg Tablet 10 Mg PO QHS Pantoprazole Sodium 40 Mg Tablet.dr 20 Mg PO BIDBFRMEAL Vitamin D3 (Cholecalciferol (Vitamin D3)) 1,000 Unit Tablet 1,000 Unit PO DAILY Phenobarbital 64.8 Mg Tablet 64.8 Mg PO BID Magnesium Oxide 400 Mg Tablet 400 Mg PO TID Tylenol (Acetaminophen) 325 Mg Tablet 650 Mg PO PRN Q6HRS PRN Keppra (Levetiracetam) 250 Mg Tablet 500 Mg PO BID Ferrous Sulfate 325 Mg Tablet 325 Mg PO BIDAFTMEAL Bisacodyl 10 Mg Supp.rect 10 Mg RC PRN DAILY PRN Felbamate 400 Mg Tablet 400 Mg PO TID I have reviewed the current psychotropics carefully including drug interactions. Risk benefit ratio favors no change other than as noted in my dictated progress note. Diagnosis: Problems: (1) Functional diarrhea (2) urinary tract infection (3) Left hip arthroplasty (4) Severe major depression with psychotic features (5) Adjustment disorder with depressed mood (6) Bipolar affective, mixed (7) Impulse control disorder (8) Dementia, vascular, with delusions (9) Dementia, vascular, with depression HARVEY QUIJANO MD May 17, 2018 22:18
--- NOTE | 2018-05-18 00:20 | NUR ---
Behavior Intervention Response and Plan: BIRP Note: Behavior: Assumed Care of patient, patient located in Hallway at shift change. Patient exhibited the following behavior Demanding, Defensive, Resistive. Brief assessment on rounds of vital signs, medication needs, lab studies, and pain. Treatment plan problems . Intervention: Patient assessed and the following interventions initiated safety checks 15 Minute Checks Personal Alarm in place , Nutrition , Head to toe Assessment. Response: After interactions and interventions patient responded in the following manner, Resistive , Demanding ,Irritable. Continue to assess behaviors and condition will continue to monitor throughout the shift as needed. Patient educated on ADL's, and hand hygiene. Plan: Continue to monitor Master Treatment Plan for patient's progress toward short term goals of Decreased Agitation, Improved Mood, half-way goals to return to previous living setting vs placement. Continue to assess patient for changes in above assessment. Monitor for medication needs, pain, and safety concerns. Hourly rounding performed to ensure safe environment.
[2018-05-18] MEDS: LEVOTHYROXINE 75 MCG TABLET PO SCH (04:43)
[2018-05-18 05:57] VITALS: BP 93/57
[2018-05-18] MEDS: busPIRone 5 MG TABLET. PO SCH ×2 (08:14→11:41)
[2018-05-18] MEDS: CALCIUM CARBONATE 500 MG TABLET PO SCH ×2 (08:14→17:05)
[2018-05-18] MEDS: levETIRAcetam 500 MG TABLET PO SCH ×2 (08:14→21:03)
[2018-05-18] MEDS: PANTOPRAZOLE 40 MG TABLET. PO SCH (08:14)
[2018-05-18] MEDS: FERROUS SULFATE 325 MG TABLET. PO SCH ×2 (08:14→17:05)
[2018-05-18] MEDS: OLANZapine 5 MG TABLET PO SCH ×2 (08:14→21:03)
[2018-05-18] MEDS: MAGNESIUM OXIDE 400 MG TABLET PO SCH ×3 (08:14→21:04)
[2018-05-18] MEDS: PHENobarbital 32.4 MG TABLET. PO SCH ×2 (08:18→21:03)
[2018-05-18] MEDS: LACOSAMIDE 50 MG TABLET PO SCH ×2 (08:18→21:04)
[2018-05-18] MEDS: traMADol 50 MG TABLET PO SCH ×2 (08:18→21:04)
[2018-05-18] MEDS: FELBAMATE 400 MG TABLET PO SCH ×3 (08:18→21:05)
[2018-05-18] MEDS: CHOLECALCIFEROL (VITAMIN D3) 1,000 UNIT TABLET PO SCH (08:18)
--- NOTE | 2018-05-18 09:15 | NUR ---
ACTIVITY THERAPY ASSESSMENT Completed based on observation and interview. When MEDICAL PRACTICE ADMINISTRATOR said "hi" to Pt, she replied "I don't say hi to you." When asked if she remembered MEDICAL PRACTICE ADMINISTRATOR, Pt. stated "No and never want to." Pt did not want to answer questions or do anything. She said she just wants to be left alone and "put in a place where no one can come get me." Pt. is disengaged and withdrawn but has been observed to be around others often. She is able to answer questions clearly; however, her responses are negative and rude at times. She has minimal to no interaction with others and interest in leisure activities. Based on pervious intakes, Pt. usually comes with reading glasses. When asked if she had some with her, Pt. did not know. MEDICAL PRACTICE ADMINISTRATOR looked on Pt's possession sheet and found no glasses inventoried. Initial goal aimed to increase engagement and socialization: Pt. will participate in ar least three individual or (Activity Therapy) groups per week.
--- NOTE | 2018-05-18 10:53 | NUR ---
Behavior Intervention Response and Plan: BIRP Note: Behavior: Assumed Care of patient, patient located in Hallway at shift change. Patient exhibited the following behavior Demanding, Defensive, Resistive. Brief assessment on rounds of vital signs, medication needs, lab studies, and pain. Treatment plan problems . Intervention: Patient assessed and the following interventions initiated safety checks 15 Minute Checks Personal Alarm in place , Nutrition , Head to toe Assessment. Response: After interactions and interventions patient responded in the following manner, Resistive , Demanding ,Irritable. Continue to assess behaviors and condition will continue to monitor throughout the shift as needed. Patient educated on ADL's, and hand hygiene. Plan: Continue to monitor Master Treatment Plan for patient's progress toward short term goals of Decreased Agitation, Improved Mood, nursing home goals to return to previous living setting vs placement. Continue to assess patient for changes in above assessment. Monitor for medication needs, pain, and safety concerns. Hourly rounding performed to ensure safe environment.
[2018-05-18 15:53] VITALS: BP 94/60
--- NOTE | 2018-05-18 19:45 | PN ---
DATE: 05/16/2018 This late entry 05/16/2018 covers elements not covered in my initial note. SUBJECTIVE: I met with the patient in the evening. The patient slept 5-3/4 hours previous night, somewhat quite resistive to medications and shower, somewhat irritable at times, anxious. REVIEW OF SYSTEMS: Ambulation impaired, in wheelchair. No CV, , pulmonary, eye, ENT system symptoms on review. Reliability poor. MENTAL STATUS EXAM: Oriented to herself and situation. Speech moderate latency, low in volume, coherent, often responses monosyllabic. Abstraction fair, computation impaired, language function intact. Attention span short. She remains somewhat paranoid. No suicidal ideation. LABORATORY DATA: Reviewed. IMPRESSION: Bipolar 1 disorder, mixed with psychotic features; cognitive disorder, unspecified. Rest unchanged including anxiety disorder, unspecified. PLAN: Continue psychotropics from initial note, start BuSpar 5 mg twice a day. Adjust as clinically indicated. MAN Luis QUIJANO MD DR: LOYD/eboni JOB#: [id number] / [id number]
[2018-05-18] MEDS: ATORVASTATIN CALCIUM 10 MG TABLET. PO SCH (21:03)
[2018-05-18] MEDS: CETIRIZINE HCL 10 MG TABLET PO SCH (21:04)
[2018-05-18] MEDS: MIRTAZAPINE 15 MG TABLET PO SCH (21:04)
--- NOTE | 2018-05-18 22:19 | PDOC ---
Exam Note: David Note: Please also refer to the separate dictated note~for this date of service dictated separately.~Patient seen individually. Discussed the patient with Nursing staff reviewed the chart.~Reviewed interim history and current functioning. Reviewed vital signs,~Labs/ Radiology~and current medications noted below. Continue current treatment with the changes noted in the dictated addendum note Assessment: Vital Signs: Vital Signs Date Time Temp Pulse Resp B/P (MAP) Pulse Ox O2 Delivery O2 Flow Rate FiO2 05/18/18 22:08 20 98 Room Air 05/18/18 15:53 97.4 69 94/60 (71) I&O Intake and Output 05/18/18 07:01 Intake Total 840 ml Balance 840 ml Intake Oral 840 ml Current Medications: Meds: Current Medications Haloperidol Lactate (Haldol) 5 mg 1X ONCE IM Last administered on 05/15/18at 00 :47; Start 05/15/18 at 01:00; Stop 05/15/18 at 01:01; Status DC Diphenhydramine HCl (Benadryl) 50 mg 1X ONCE IM Last administered on at 00:47; Start 05/15/18 at 01:00; Stop 05/15/18 at 01:01; Status DC Lorazepam (Ativan) 2 mg 1X ONCE IM Last administered on 05/15/18at 00:46; Start 05/15/18 at 00:30; Stop 05/15/18 at 00:51; Status DC Acetaminophen (Tylenol) 650 mg PRN Q4HRS PRN PO FEVER; Start 05/15/18 at 02:15 ; Stop 05/15/18 at 05:14; Status DC Acetaminophen (Tylenol) 650 mg PRN Q6HRS PRN PO PAIN / TEMP; Start 05/15/18 at 05:15 Calcium Carbonate/ Glycine (Oscal) 500 mg BIDWMEALS PO Last administered on 05/18at 17:05; Start 05/15/18 at 08:00 Vitamin D (Vitamin D3) 1,000 unit DAILY PO Last administered on 05/18/18at 08:18 ; Start 05/15/18 at 09:00 Felbamate (Felbatol) 400 mg TID PO Last administered on 05/18/18at 21:05; Start 05/15/18 at 09:00 Ferrous Sulfate (Feosol) 325 mg BIDAFTMEAL PO Last administered on 05/18/18at 17: 05; Start 05/15/18 at 09:00 Al Hydroxide/Mg Hydroxide (Mylanta Plus Xs) 15 ml PRN AFTMEALHC PRN PO DYSPEPSIA; Start 05/15/18 at 05:15 Multi-Ingredient Ointment (Analgesic [place]) 1 radha PRN QID PRN TP MUSCLE PAIN; Start 05/15/18 at 05:15 Senna/Docusate Sodium (Senna Plus) 1 tab PRN BID PRN PO CONSTIPATION; Start at 05:15; Stop 05/15/18 at 10:54; Status DC Tramadol HCl (Ultram) 50 mg PRN Q6HRS PRN PO PAIN; Start 05/15/18 at 05:15; Stop 05/15/18 at 10:54; Status DC Atorvastatin Calcium (Lipitor) 5 mg QHS PO ; Start 05/15/18 at 21:00; Stop 05/15 at 21:00; Status DC Bisacodyl (Dulcolax Supp) 10 mg PRN DAILY PRN [place] CONSTIPATION; Start 05/15/18 at 05:30 Divalproex Sodium (Depakote Sprinkles) 500 mg DAILY PO ; Start 05/15/18 at 09:00 ; Stop 05/15/18 at 10:54; Status DC Divalproex Sodium (Depakote Sprinkles) 750 mg QHS PO ; Start 05/15/18 at 21:00; Stop 05/15/18 at 21:00; Status DC Duloxetine HCl (Cymbalta) 60 mg DAILY PO ; Start 05/15/18 at 09:00; Stop at 10:54; Status DC Lacosamide (Vimpat) 200 mg BIDAFTMEAL PO ; Start 05/15/18 at 09:00; Stop at 09:00; Status DC Levetiracetam (Keppra) 750 mg BIDAFTMEAL PO ; Start 05/15/18 at 09:00; Stop at 09:00; Status DC Levothyroxine Sodium (Synthroid) 50 mcg DAILY06 PO ; Start 05/15/18 at 06:00; Stop 05/15/18 at 06:00; Status DC Magnesium Hydroxide (Milk Of Magnesia) 2,400 mg PRN QHS PRN PO CONSTIPATION; Start 05/15/18 at 05:30 Magnesium Oxide (Magnesium Oxide) 400 mg TID PO Last administered on 05/18/18at 21:04; Start 05/15/18 at 09:00 Pantoprazole Sodium (Protonix) 40 mg BIDBFRMEAL PO ; Start 05/15/18 at 07:30; Stop 05/15/18 at 07:41; Status DC Phenobarbital (Luminal) 64.8 mg QHS PO ; Start 05/15/18 at 21:00; Stop 05/15/18 at 21:00; Status DC Polyethylene Glycol (miraLAX) 17 gm PRN DAILY PRN PO CONSTIPATION; Start at 09:00; Stop 05/15/18 at 10:54; Status DC Quetiapine Fumarate (SEROquel) 12.5 mg QID PO ; Start 05/15/18 at 09:00; Stop at 10:54; Status DC Trazodone HCl (Desyrel) 50 mg PRN QHS PRN PO INSOMNIA, MAY REPEAT X1; Start at 05:30 Multi-Ingredient Ointment (Analgesic [place]) 1 radha PRN QID PRN TP MUSCLE PAIN; Start 05/15/18 at 05:45; Status UNV Al Hydroxide/Mg Hydroxide (Mylanta Plus Xs) 15 ml PRN AFTMEALHC PRN PO DYSPEPSIA; Start 05/15/18 at 05:45; Status UNV Magnesium Hydroxide (Milk Of Magnesia) 2,400 mg PRN QHS PRN PO CONSTIPATION; Start 05/15/18 at 05:45; Status UNV Levetiracetam (Keppra) 500 mg BID PO Last administered on 05/18/18at 21:03; Start 05/15/18 at 09:00 Levothyroxine Sodium (Synthroid) 75 mcg DAILY06 PO Last administered on at 04:43; Start 05/16/18 at 06:00 Pantoprazole Sodium (Protonix) 20 mg BIDBFRMEAL PO ; Start 05/15/18 at 16:30; Stop 05/15/18 at 16:30; Status DC Phenobarbital (Luminal) 64.8 mg BID PO Last administered on 05/18/18 21:03; Start 05/15/18 at 09:00 Cetirizine HCl (ZyrTEC) 10 mg HS PO Last administered on 05/18/18at 21:04; Start 05/15/18 at 21:00 Multi-Ingred Cream/Lotion/Oil/ Oint (Hydrocerin) 1 radha PRN Q12HR PRN TP DRY SKIN / SCALING; Start 05/15/18 at 07:30 Guaifenesin (Guaifenesin) 100 mg PRN Q4HRS PRN PO COUGH; Start 05/15/18 at 07: 30; Stop 05/15/18 at 10:54; Status DC Ibuprofen (Motrin) 400 mg PRN Q4HRS PRN PO INFLAMMATION; Start 05/15/18 at 07: 30; Stop 05/15/18 at 11:10; Status DC Olanzapine (ZyPREXA) 5 mg BID PO Last administered on 05/18/18 21:03; Start at 09:00 Mirtazapine (Remeron) 15 mg QHS PO Last administered on 05/18/18at 21:04; Start 05/15/18 at 21:00 Tramadol HCl (Ultram) 50 mg PRN Q8HRS PRN PO PAIN; Start 05/15/18 at 07:30 Tramadol HCl (Ultram) 50 mg BID PRN PO PAIN; Start 05/15/18 at 07:30; Stop at 10:54; Status DC Lacosamide (Vimpat) 200 mg BID PO Last administered on 05/18/18at 21:04; Start at 09:00 Calcium Carbonate/ Glycine (Oscal) 500 mg BID PO ; Start 05/15/18 at 21:00; Stop 05/15/18 at 21:00; Status DC Guaifenesin (Robitussin) 100 mg PRN Q4HRS PRN PO COUGH; Start 05/15/18 at 10:30 Ibuprofen (Motrin) 400 mg PRN Q4HRS PRN PO PAIN; Start 05/15/18 at 10:30 Multi-Ingred Cream/Lotion/Oil/ Oint (Hydrocerin) 120 radha PRN Q12HR PRN TP dry skin; Start 05/15/18 at 10:30; Stop 05/15/18 at 11:07; Status DC Tramadol HCl (Ultram) 50 mg BID PRN PO PAIN; Start 05/15/18 at 10:30; Stop at 13:43; Status DC Tramadol HCl (Ultram) 50 mg PRN Q8HRS PRN PO PAIN; Start 05/15/18 at 10:30; Stop 05/15/18 at 11:25; Status DC Non-Formulary Medication (Cetirizine Hcl ) 10 mg QHS PO ; Start 05/15/18 at 21: 00; Stop 05/15/18 at 21:00; Status DC Non-Formulary Medication (Mirtazapine (Remeron)) 15 mg QHS PO ; Start 05/15/18 at 21:00; Stop 05/15/18 at 21:00; Status DC Non-Formulary Medication (Olanzapine ) 5 mg BID PO ; Start 05/15/18 at 21:00; Stop 05/15/18 at 21:00; Status DC Atorvastatin Calcium (Lipitor) 10 mg QHS PO Last administered on 05/18/18at 21:03 ; Start 05/15/18 at 21:00 Tramadol HCl (Ultram) 50 mg BID PO Last administered on 05/18/18at 21:04; Start 05/15/18 at 21:00 Pantoprazole Sodium (Protonix) 40 mg DAILYAC PO Last administered on 05/18/18at 08:14; Start 05/15/18 at 11:30 Buspirone HCl (Buspar) 5 mg BIDWBK/JIN PO Last administered on 05/18/18at 11:41 ; Start 05/16/18 at 17:00 Active Scripts Active Reported Tramadol Hcl (Tramadol HCl) 50 Mg Tablet 50 Mg PO BID PRN Tramadol Hcl (Tramadol HCl) 50 Mg Tablet 50 Mg PO PRN Q8HRS PRN Remeron (Mirtazapine) 15 Mg Tablet 15 Mg PO QHS Olanzapine 5 Mg Tablet 5 Mg PO BID Ibuprofen 400 Mg Tablet 400 Mg PO PRN Q4HRS PRN Guaifenesin 100 Mg/5 Ml Liquid 5 Ml PO PRN Q4HRS PRN Eucerin Creme (Mineral Oil/Petrolatum,White) 120 Gm Cream..g. 120 Gm TP PRN Q12HR PRN Cetirizine Hcl 10 Mg Tablet 10 Mg PO QHS Calcium Carbonate 500 Mg Tablet 500 Mg PO BID Levothyroxine Sodium 50 Mcg Tablet 75 Mcg PO DAILY06 Analgesic [place] (Methyl Salicylate/Menthol) 28 Gm Oint...g. 1 Radha TP PRN QID PRN Mag-Al Plus Xs Suspension (Mag Hydrox/Al Hydrox/Simeth) 30 Ml Oral.susp 15 Ml PO PRN AFTMEALHC PRN Vimpat (Lacosamide) 200 Mg Tablet 200 Mg PO BID Milk Of Magnesia (Magnesium Hydroxide) 2,400 Mg/10 Ml Oral.susp 2,400 Mg PO PRN QHS PRN Atorvastatin Calcium 10 Mg Tablet 10 Mg PO QHS Pantoprazole Sodium 40 Mg Tablet.dr 20 Mg PO BIDBFRMEAL Vitamin D3 (Cholecalciferol (Vitamin D3)) 1,000 Unit Tablet 1,000 Unit PO DAILY Phenobarbital 64.8 Mg Tablet 64.8 Mg PO BID Magnesium Oxide 400 Mg Tablet 400 Mg PO TID Tylenol (Acetaminophen) 325 Mg Tablet 650 Mg PO PRN Q6HRS PRN Keppra (Levetiracetam) 250 Mg Tablet 500 Mg PO BID Ferrous Sulfate 325 Mg Tablet 325 Mg PO BIDAFTMEAL Bisacodyl 10 Mg Supp.rect 10 Mg RC PRN DAILY PRN Felbamate 400 Mg Tablet 400 Mg PO TID I have reviewed the current psychotropics carefully including drug interactions. Risk benefit ratio favors no change other than as noted in my dictated progress note. Diagnosis: Problems: (1) Functional diarrhea (2) urinary tract infection (3) Left hip arthroplasty (4) Severe major depression with psychotic features (5) Adjustment disorder with depressed mood (6) Bipolar affective, mixed (7) Impulse control disorder (8) Dementia, vascular, with delusions (9) Dementia, vascular, with depression HARVEY QUIJANO MD May 18, 2018 22:19
--- NOTE | 2018-05-18 22:36 | NUR ---
Behavior Intervention Response and Plan: BIRP Note: Behavior: Assumed Care of patient, patient located in Patient Room at shift change. Patient exhibited the following behavior Calm, Cooperative, Compliant. Brief assessment on rounds of vital signs, medication needs, lab studies, and pain. Treatment plan problems . Intervention: Patient assessed and the following interventions initiated safety checks 15 Minute Checks Personal Alarm in place , Cognitive Assessment , Medications. Response: After interactions and interventions patient responded in the following manner, Calm , Cooperative ,Compliant. Continue to assess behaviors and condition will continue to monitor throughout the shift as needed. Patient educated on ADL's, and hand hygiene. 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 Continue to assess patient for changes in above assessment. Monitor for medication needs, pain, and safety concerns. Hourly rounding performed to ensure safe environment.
[2018-05-19] MEDS: LEVOTHYROXINE 75 MCG TABLET PO SCH (05:11)
[2018-05-19 06:03] VITALS: BP 101/70
[2018-05-19] MEDS: PANTOPRAZOLE 40 MG TABLET. PO SCH (08:08)
[2018-05-19] MEDS: MAGNESIUM OXIDE 400 MG TABLET PO SCH ×3 (08:08→20:29)
[2018-05-19] MEDS: FERROUS SULFATE 325 MG TABLET. PO SCH ×2 (08:08→17:42)
[2018-05-19] MEDS: busPIRone 5 MG TABLET. PO SCH ×2 (08:08→12:22)
[2018-05-19] MEDS: CALCIUM CARBONATE 500 MG TABLET PO SCH ×2 (08:08→13:27)
[2018-05-19] MEDS: CHOLECALCIFEROL (VITAMIN D3) 1,000 UNIT TABLET PO SCH (08:08)
[2018-05-19] MEDS: OLANZapine 5 MG TABLET PO SCH ×2 (08:08→20:29)
[2018-05-19] MEDS: levETIRAcetam 500 MG TABLET PO SCH ×2 (08:09→20:29)
[2018-05-19] MEDS: LACOSAMIDE 50 MG TABLET PO SCH ×2 (08:18→20:30)
[2018-05-19] MEDS: PHENobarbital 32.4 MG TABLET. PO SCH ×2 (08:18→20:34)
[2018-05-19] MEDS: traMADol 50 MG TABLET PO SCH ×2 (08:19→20:34)
[2018-05-19] MEDS: FELBAMATE 400 MG TABLET PO SCH ×3 (08:19→21:00)
[2018-05-19 16:07] VITALS: BP 100/65
--- NOTE | 2018-05-19 17:28 | NUR ---
Pt resistive withe medications; however, when presented with a choice pt is more willing to cooperate. Pt answer "No" to most questions, but allowed this nurse to assess her.
--- NOTE | 2018-05-19 20:00 | NUR ---
Behavior Intervention Response and Plan: BIRP Note: Behavior: Assumed Care of patient, patient located in Hallway at shift change. Patient exhibited the following behavior Interactive, Disorganized, Compliant. Brief assessment on rounds of vital signs, medication needs, lab studies, and pain. Treatment plan problems . Intervention: Patient assessed and the following interventions initiated safety checks 15 Minute Checks , Cognitive Assessment , Cognitive Assessment. Response: After interactions and interventions patient responded in the following manner, Calm , Attention Seeking ,Calm. Continue to assess behaviors and condition will continue to monitor throughout the shift as needed. Patient educated on ADL's, and hand hygiene. Plan: Continue to monitor Master Treatment Plan for patient's progress toward short term goals of Decreased Agitation, Decreased Anxiety, fci goals to return to previous living setting vs placement. Continue to assess patient for changes in above assessment. Monitor for medication needs, pain, and safety concerns. Hourly rounding performed to ensure safe environment.
[2018-05-19] MEDS: MIRTAZAPINE 15 MG TABLET PO SCH (20:29)
[2018-05-19] MEDS: CETIRIZINE HCL 10 MG TABLET PO SCH (20:29)
[2018-05-19] MEDS: ATORVASTATIN CALCIUM 10 MG TABLET. PO SCH (20:29)
--- NOTE | 2018-05-19 22:26 | PDOC ---
Exam Note: David Note: Please also refer to the separate dictated note~for this date of service dictated separately.~Patient seen individually. Discussed the patient with Nursing staff reviewed the chart.~Reviewed interim history and current functioning. Reviewed vital signs,~Labs/ Radiology~and current medications noted below. Continue current treatment with the changes noted in the dictated addendum note Assessment: Vital Signs: Vital Signs Date Time Temp Pulse Resp B/P (MAP) Pulse Ox O2 Delivery O2 Flow Rate FiO2 05/19/18 16:07 97.6 64 16 100/65 (77) 96 05/19/18 10:23 Room Air I&O Intake and Output 05/19/18 07:01 Intake Total 720 ml Balance 720 ml Intake Oral 720 ml Current Medications: Meds: Current Medications Haloperidol Lactate (Haldol) 5 mg 1X ONCE IM Last administered on 05/15/18at 00 :47; Start 05/15/18 at 01:00; Stop 05/15/18 at 01:01; Status DC Diphenhydramine HCl (Benadryl) 50 mg 1X ONCE IM Last administered on at 00:47; Start 05/15/18 at 01:00; Stop 05/15/18 at 01:01; Status DC Lorazepam (Ativan) 2 mg 1X ONCE IM Last administered on 05/15/18at 00:46; Start 05/15/18 at 00:30; Stop 05/15/18 at 00:51; Status DC Acetaminophen (Tylenol) 650 mg PRN Q4HRS PRN PO FEVER; Start 05/15/18 at 02:15 ; Stop 05/15/18 at 05:14; Status DC Acetaminophen (Tylenol) 650 mg PRN Q6HRS PRN PO PAIN / TEMP; Start 05/15/18 at 05:15 Calcium Carbonate/ Glycine (Oscal) 500 mg BIDWMEALS PO Last administered on 05/19 13:27; Start 05/15/18 at 08:00 Vitamin D (Vitamin D3) 1,000 unit DAILY PO Last administered on 05/19/18at 08:08 ; Start 05/15/18 at 09:00 Felbamate (Felbatol) 400 mg TID PO Last administered on 05/19/18at 13:25; Start 05/15/18 at 09:00 Ferrous Sulfate (Feosol) 325 mg BIDAFTMEAL PO Last administered on 05/19/18at 17: 42; Start 05/15/18 at 09:00 Al Hydroxide/Mg Hydroxide (Mylanta Plus Xs) 15 ml PRN AFTMEALHC PRN PO DYSPEPSIA; Start 05/15/18 at 05:15 Multi-Ingredient Ointment (Analgesic [place]) 1 radha PRN QID PRN TP MUSCLE PAIN; Start 05/15/18 at 05:15 Senna/Docusate Sodium (Senna Plus) 1 tab PRN BID PRN PO CONSTIPATION; Start at 05:15; Stop 05/15/18 at 10:54; Status DC Tramadol HCl (Ultram) 50 mg PRN Q6HRS PRN PO PAIN; Start 05/15/18 at 05:15; Stop 05/15/18 at 10:54; Status DC Atorvastatin Calcium (Lipitor) 5 mg QHS PO ; Start 05/15/18 at 21:00; Stop 05/15 at 21:00; Status DC Bisacodyl (Dulcolax Supp) 10 mg PRN DAILY PRN [place] CONSTIPATION; Start 05/15/18 at 05:30 Divalproex Sodium (Depakote Sprinkles) 500 mg DAILY PO ; Start 05/15/18 at 09:00 ; Stop 05/15/18 at 10:54; Status DC Divalproex Sodium (Depakote Sprinkles) 750 mg QHS PO ; Start 05/15/18 at 21:00; Stop 05/15/18 at 21:00; Status DC Duloxetine HCl (Cymbalta) 60 mg DAILY PO ; Start 05/15/18 at 09:00; Stop at 10:54; Status DC Lacosamide (Vimpat) 200 mg BIDAFTMEAL PO ; Start 05/15/18 at 09:00; Stop at 09:00; Status DC Levetiracetam (Keppra) 750 mg BIDAFTMEAL PO ; Start 05/15/18 at 09:00; Stop at 09:00; Status DC Levothyroxine Sodium (Synthroid) 50 mcg DAILY06 PO ; Start 05/15/18 at 06:00; Stop 05/15/18 at 06:00; Status DC Magnesium Hydroxide (Milk Of Magnesia) 2,400 mg PRN QHS PRN PO CONSTIPATION; Start 05/15/18 at 05:30 Magnesium Oxide (Magnesium Oxide) 400 mg TID PO Last administered on 05/19/18at 20:29; Start 05/15/18 at 09:00 Pantoprazole Sodium (Protonix) 40 mg BIDBFRMEAL PO ; Start 05/15/18 at 07:30; Stop 05/15/18 at 07:41; Status DC Phenobarbital (Luminal) 64.8 mg QHS PO ; Start 05/15/18 at 21:00; Stop 05/15/18 at 21:00; Status DC Polyethylene Glycol (miraLAX) 17 gm PRN DAILY PRN PO CONSTIPATION; Start at 09:00; Stop 05/15/18 at 10:54; Status DC Quetiapine Fumarate (SEROquel) 12.5 mg QID PO ; Start 05/15/18 at 09:00; Stop at 10:54; Status DC Trazodone HCl (Desyrel) 50 mg PRN QHS PRN PO INSOMNIA, MAY REPEAT X1; Start at 05:30 Multi-Ingredient Ointment (Analgesic [place]) 1 radha PRN QID PRN TP MUSCLE PAIN; Start 05/15/18 at 05:45; Status UNV Al Hydroxide/Mg Hydroxide (Mylanta Plus Xs) 15 ml PRN AFTMEALHC PRN PO DYSPEPSIA; Start 05/15/18 at 05:45; Status UNV Magnesium Hydroxide (Milk Of Magnesia) 2,400 mg PRN QHS PRN PO CONSTIPATION; Start 05/15/18 at 05:45; Status UNV Levetiracetam (Keppra) 500 mg BID PO Last administered on 05/19/18at 20:29; Start 05/15/18 at 09:00 Levothyroxine Sodium (Synthroid) 75 mcg DAILY06 PO Last administered on at 05:11; Start 05/16/18 at 06:00 Pantoprazole Sodium (Protonix) 20 mg BIDBFRMEAL PO ; Start 05/15/18 at 16:30; Stop 05/15/18 at 16:30; Status DC Phenobarbital (Luminal) 64.8 mg BID PO Last administered on 05/19/18 20:34; Start 05/15/18 at 09:00 Cetirizine HCl (ZyrTEC) 10 mg HS PO Last administered on 05/19/18 20:29; Start 05/15/18 at 21:00 Multi-Ingred Cream/Lotion/Oil/ Oint (Hydrocerin) 1 radha PRN Q12HR PRN TP DRY SKIN / SCALING; Start 05/15/18 at 07:30 Guaifenesin (Guaifenesin) 100 mg PRN Q4HRS PRN PO COUGH; Start 05/15/18 at 07: 30; Stop 05/15/18 at 10:54; Status DC Ibuprofen (Motrin) 400 mg PRN Q4HRS PRN PO INFLAMMATION; Start 05/15/18 at 07: 30; Stop 05/15/18 at 11:10; Status DC Olanzapine (ZyPREXA) 5 mg BID PO Last administered on 05/19/18 20:29; Start at 09:00 Mirtazapine (Remeron) 15 mg QHS PO Last administered on 05/19/18 20:29; Start 05/15/18 at 21:00 Tramadol HCl (Ultram) 50 mg PRN Q8HRS PRN PO PAIN; Start 05/15/18 at 07:30 Tramadol HCl (Ultram) 50 mg BID PRN PO PAIN; Start 05/15/18 at 07:30; Stop at 10:54; Status DC Lacosamide (Vimpat) 200 mg BID PO Last administered on 05/19/18at 20:30; Start at 09:00 Calcium Carbonate/ Glycine (Oscal) 500 mg BID PO ; Start 05/15/18 at 21:00; Stop 05/15/18 at 21:00; Status DC Guaifenesin (Robitussin) 100 mg PRN Q4HRS PRN PO COUGH; Start 05/15/18 at 10:30 Ibuprofen (Motrin) 400 mg PRN Q4HRS PRN PO PAIN; Start 05/15/18 at 10:30 Multi-Ingred Cream/Lotion/Oil/ Oint (Hydrocerin) 120 radha PRN Q12HR PRN TP dry skin; Start 05/15/18 at 10:30; Stop 05/15/18 at 11:07; Status DC Tramadol HCl (Ultram) 50 mg BID PRN PO PAIN; Start 05/15/18 at 10:30; Stop at 13:43; Status DC Tramadol HCl (Ultram) 50 mg PRN Q8HRS PRN PO PAIN; Start 05/15/18 at 10:30; Stop 05/15/18 at 11:25; Status DC Non-Formulary Medication (Cetirizine Hcl ) 10 mg QHS PO ; Start 05/15/18 at 21: 00; Stop 05/15/18 at 21:00; Status DC Non-Formulary Medication (Mirtazapine (Remeron)) 15 mg QHS PO ; Start 05/15/18 at 21:00; Stop 05/15/18 at 21:00; Status DC Non-Formulary Medication (Olanzapine ) 5 mg BID PO ; Start 05/15/18 at 21:00; Stop 05/15/18 at 21:00; Status DC Atorvastatin Calcium (Lipitor) 10 mg QHS PO Last administered on 05/19/18at 20:29 ; Start 05/15/18 at 21:00 Tramadol HCl (Ultram) 50 mg BID PO Last administered on 05/19/18at 20:34; Start 05/15/18 at 21:00 Pantoprazole Sodium (Protonix) 40 mg DAILYAC PO Last administered on 05/19/18at 08:08; Start 05/15/18 at 11:30 Buspirone HCl (Buspar) 5 mg BIDWBKFT/JIN PO Last administered on 05/19/18at 12:22 ; Start 05/16/18 at 17:00; Stop 05/19/18 at 16:26; Status DC Buspirone HCl (Buspar) 10 mg BIDWBKFT/JIN PO ; Start 05/20/18 at 08:00 Active Scripts Active Reported Tramadol Hcl (Tramadol HCl) 50 Mg Tablet 50 Mg PO BID PRN Tramadol Hcl (Tramadol HCl) 50 Mg Tablet 50 Mg PO PRN Q8HRS PRN Remeron (Mirtazapine) 15 Mg Tablet 15 Mg PO QHS Olanzapine 5 Mg Tablet 5 Mg PO BID Ibuprofen 400 Mg Tablet 400 Mg PO PRN Q4HRS PRN Guaifenesin 100 Mg/5 Ml Liquid 5 Ml PO PRN Q4HRS PRN Eucerin Creme (Mineral Oil/Petrolatum,White) 120 Gm Cream..g. 120 Gm TP PRN Q12HR PRN Cetirizine Hcl 10 Mg Tablet 10 Mg PO QHS Calcium Carbonate 500 Mg Tablet 500 Mg PO BID Levothyroxine Sodium 50 Mcg Tablet 75 Mcg PO DAILY06 Analgesic [place] (Methyl Salicylate/Menthol) 28 Gm Oint...g. 1 Radha TP PRN QID PRN Mag-Al Plus Xs Suspension (Mag Hydrox/Al Hydrox/Simeth) 30 Ml Oral.susp 15 Ml PO PRN AFTMEALHC PRN Vimpat (Lacosamide) 200 Mg Tablet 200 Mg PO BID Milk Of Magnesia (Magnesium Hydroxide) 2,400 Mg/10 Ml Oral.susp 2,400 Mg PO PRN QHS PRN Atorvastatin Calcium 10 Mg Tablet 10 Mg PO QHS Pantoprazole Sodium 40 Mg Tablet.dr 20 Mg PO BIDBFRMEAL Vitamin D3 (Cholecalciferol (Vitamin D3)) 1,000 Unit Tablet 1,000 Unit PO DAILY Phenobarbital 64.8 Mg Tablet 64.8 Mg PO BID Magnesium Oxide 400 Mg Tablet 400 Mg PO TID Tylenol (Acetaminophen) 325 Mg Tablet 650 Mg PO PRN Q6HRS PRN Keppra (Levetiracetam) 250 Mg Tablet 500 Mg PO BID Ferrous Sulfate 325 Mg Tablet 325 Mg PO BIDAFTMEAL Bisacodyl 10 Mg Supp.rect 10 Mg RC PRN DAILY PRN Felbamate 400 Mg Tablet 400 Mg PO TID I have reviewed the current psychotropics carefully including drug interactions. Risk benefit ratio favors no change other than as noted in my dictated progress note. Diagnosis: Problems: (1) Functional diarrhea (2) urinary tract infection (3) Left hip arthroplasty (4) Severe major depression with psychotic features (5) Adjustment disorder with depressed mood (6) Bipolar affective, mixed (7) Impulse control disorder (8) Dementia, vascular, with delusions (9) Dementia, vascular, with depression HARVEY QUIJANO MD May 19, 2018 22:26
--- NOTE | 2018-05-19 22:31 | PN ---
DATE: 05/17/2018 This late entry for 05/17/2018 covers elements not covered in my initial note. SUBJECTIVE: I met with the patient at length in the evening. The patient slept 8-1/2 hours previous night. Resistive to medications, somewhat withdrawn, paranoid. REVIEW OF SYSTEMS: Ambulation impaired, in wheelchair. No CV, , pulmonary, eye, ENT system symptoms on review. Reliability poor. MENTAL STATUS EXAM: Oriented to herself and situation. Speech moderate latency, often responses monosyllabic. Abstraction fair, computation impaired, language function intact, attention span short. Mood and affect, somewhat anxious, withdrawn. LABORATORY DATA: Reviewed. IMPRESSION: Bipolar 1 disorder, mixed with psychotic features; cognitive disorder, unspecified, seizure disorder. PLAN: Continue psychotropics from initial note. We will increase BuSpar for anxiety depending on her progress. MAN Luis QUIJANO MD DR: LOYD/eboni JOB#: [id number] / [id number]
--- NOTE | 2018-05-20 03:12 | PN ---
DATE: 05/18/2018 This late entry for 05/18/2018 covers elements not covered in my initial note. SUBJECTIVE: I met with the patient in the evening. The patient slept 6-1/2 hours previous night. She is resistive to medications, but not aggressive. REVIEW OF SYSTEMS: Ambulation impaired, in wheelchair. No CV, , pulmonary, eye system symptoms on review. MENTAL STATUS EXAM: Oriented to herself and situation. Speech has some latency, coherent. Abstraction fair, computation impaired, language function intact, attention span short. Mood and affect somewhat withdrawn, paranoid at times. LABORATORY DATA: Reviewed. IMPRESSION: Unchanged from initial note. PLAN: No change from initial note and during the individual visit. Discussed at some length her resistance with medications, educated her on her medications and the need for it. MAN Luis QUIJANO MD DR: LOYD/eobni JOB#: [id number] / [id number]
[2018-05-20] MEDS: LEVOTHYROXINE 75 MCG TABLET PO SCH (05:31)
[2018-05-20 06:09] VITALS: BP 94/56
[2018-05-20] MEDS ORDERED: busPIRone 5 MG TABLET. PO SCH (08:00)
[2018-05-20] MEDS: OLANZapine 5 MG TABLET PO SCH ×2 (08:03→19:10)
[2018-05-20] MEDS: PANTOPRAZOLE 40 MG TABLET. PO SCH (08:16)
[2018-05-20] MEDS: LACOSAMIDE 50 MG TABLET PO SCH ×2 (08:16→19:10)
[2018-05-20] MEDS: FERROUS SULFATE 325 MG TABLET. PO SCH ×2 (08:17→17:42)
[2018-05-20] MEDS: PHENobarbital 32.4 MG TABLET. PO SCH ×2 (08:17→19:11)
[2018-05-20] MEDS: levETIRAcetam 500 MG TABLET PO SCH ×2 (08:17→19:11)
[2018-05-20] MEDS: CALCIUM CARBONATE 500 MG TABLET PO SCH ×2 (08:18→17:42)
[2018-05-20] MEDS: CHOLECALCIFEROL (VITAMIN D3) 1,000 UNIT TABLET PO SCH (08:18)
[2018-05-20] MEDS: MAGNESIUM OXIDE 400 MG TABLET PO SCH ×3 (08:19→19:11)
[2018-05-20] MEDS: traMADol 50 MG TABLET PO SCH ×2 (08:19→19:14)
[2018-05-20] MEDS: FELBAMATE 400 MG TABLET PO SCH ×3 (08:21→19:13)
--- NOTE | 2018-05-20 11:20 | NUR ---
Nursing Note: Pt in dining room at time of first encounter. Initially resistive with medications saying, "I don't like them." Very quickly pt took them and continued to say, "These won't do anything." Refused to allow assessment, pushing this nurse away. Pt in the day room and xiong way.
[2018-05-20] MEDS: busPIRone 5 MG TABLET. PO SCH (12:07)
[2018-05-20 16:50] VITALS: BP 91/59
[2018-05-20] MEDS: ATORVASTATIN CALCIUM 10 MG TABLET. PO SCH (19:10)
[2018-05-20] MEDS: CETIRIZINE HCL 10 MG TABLET PO SCH (19:10)
[2018-05-20] MEDS: MIRTAZAPINE 15 MG TABLET PO SCH (19:11)
--- NOTE | 2018-05-20 20:20 | NUR ---
Behavior Intervention Response and Plan: BIRP Note: Behavior: Assumed Care of patient, patient located in Hallway at shift change. Patient exhibited the following behavior Irritable, Compliant, Sarcastic. Brief assessment on rounds of vital signs, medication needs, lab studies, and pain. Treatment plan problems . Intervention: Patient assessed and the following interventions initiated safety checks 15 Minute Checks Cognitive Assessment , Head to toe Assessment , Medications. Response: After interactions and interventions patient responded in the following manner, Drowsy , Calm ,Cooperative. Continue to assess behaviors and condition will continue to monitor throughout the shift as needed. Patient educated on ADL's, and hand hygiene. 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 Continue to assess patient for changes in above assessment. Monitor for medication needs, pain, and safety concerns. Hourly rounding performed to ensure safe environment.
--- NOTE | 2018-05-20 22:37 | PDOC ---
Exam Note: David Note: Please also refer to the separate dictated note~for this date of service dictated separately.~Patient seen individually. Discussed the patient with Nursing staff reviewed the chart.~Reviewed interim history and current functioning. Reviewed vital signs,~Labs/ Radiology~and current medications noted below. Continue current treatment with the changes noted in the dictated addendum note Assessment: Vital Signs: Vital Signs Date Time Temp Pulse Resp B/P (MAP) Pulse Ox O2 Delivery O2 Flow Rate FiO2 05/20/18 21:08 Room Air 05/20/18 16:50 97.4 86 16 91/59 (70) 95 I&O Intake and Output 05/20/18 07:01 Intake Total 900 ml Balance 900 ml Intake Oral 900 ml Current Medications: Meds: Current Medications Haloperidol Lactate (Haldol) 5 mg 1X ONCE IM Last administered on 05/15/18at 00 :47; Start 05/15/18 at 01:00; Stop 05/15/18 at 01:01; Status DC Diphenhydramine HCl (Benadryl) 50 mg 1X ONCE IM Last administered on at 00:47; Start 05/15/18 at 01:00; Stop 05/15/18 at 01:01; Status DC Lorazepam (Ativan) 2 mg 1X ONCE IM Last administered on 05/15/18at 00:46; Start 05/15/18 at 00:30; Stop 05/15/18 at 00:51; Status DC Acetaminophen (Tylenol) 650 mg PRN Q4HRS PRN PO FEVER; Start 05/15/18 at 02:15 ; Stop 05/15/18 at 05:14; Status DC Acetaminophen (Tylenol) 650 mg PRN Q6HRS PRN PO PAIN / TEMP; Start 05/15/18 at 05:15 Calcium Carbonate/ Glycine (Oscal) 500 mg BIDWMEALS PO Last administered on 05/20at 17:42; Start 05/15/18 at 08:00 Vitamin D (Vitamin D3) 1,000 unit DAILY PO Last administered on 05/20/18at 08:18 ; Start 05/15/18 at 09:00 Felbamate (Felbatol) 400 mg TID PO Last administered on 05/20/18at 19:13; Start 05/15/18 at 09:00 Ferrous Sulfate (Feosol) 325 mg BIDAFTMEAL PO Last administered on 05/20/18at 17: 42; Start 05/15/18 at 09:00 Al Hydroxide/Mg Hydroxide (Mylanta Plus Xs) 15 ml PRN AFTMEALHC PRN PO DYSPEPSIA; Start 05/15/18 at 05:15 Multi-Ingredient Ointment (Analgesic [place]) 1 radha PRN QID PRN TP MUSCLE PAIN; Start 05/15/18 at 05:15 Senna/Docusate Sodium (Senna Plus) 1 tab PRN BID PRN PO CONSTIPATION; Start at 05:15; Stop 05/15/18 at 10:54; Status DC Tramadol HCl (Ultram) 50 mg PRN Q6HRS PRN PO PAIN; Start 05/15/18 at 05:15; Stop 05/15/18 at 10:54; Status DC Atorvastatin Calcium (Lipitor) 5 mg QHS PO ; Start 05/15/18 at 21:00; Stop 05/15 at 21:00; Status DC Bisacodyl (Dulcolax Supp) 10 mg PRN DAILY PRN [place] CONSTIPATION; Start 05/15/18 at 05:30 Divalproex Sodium (Depakote Sprinkles) 500 mg DAILY PO ; Start 05/15/18 at 09:00 ; Stop 05/15/18 at 10:54; Status DC Divalproex Sodium (Depakote Sprinkles) 750 mg QHS PO ; Start 05/15/18 at 21:00; Stop 05/15/18 at 21:00; Status DC Duloxetine HCl (Cymbalta) 60 mg DAILY PO ; Start 05/15/18 at 09:00; Stop at 10:54; Status DC Lacosamide (Vimpat) 200 mg BIDAFTMEAL PO ; Start 05/15/18 at 09:00; Stop at 09:00; Status DC Levetiracetam (Keppra) 750 mg BIDAFTMEAL PO ; Start 05/15/18 at 09:00; Stop at 09:00; Status DC Levothyroxine Sodium (Synthroid) 50 mcg DAILY06 PO ; Start 05/15/18 at 06:00; Stop 05/15/18 at 06:00; Status DC Magnesium Hydroxide (Milk Of Magnesia) 2,400 mg PRN QHS PRN PO CONSTIPATION; Start 05/15/18 at 05:30 Magnesium Oxide (Magnesium Oxide) 400 mg TID PO Last administered on 05/20/18at 19:11; Start 05/15/18 at 09:00 Pantoprazole Sodium (Protonix) 40 mg BIDBFRMEAL PO ; Start 05/15/18 at 07:30; Stop 05/15/18 at 07:41; Status DC Phenobarbital (Luminal) 64.8 mg QHS PO ; Start 05/15/18 at 21:00; Stop 05/15/18 at 21:00; Status DC Polyethylene Glycol (miraLAX) 17 gm PRN DAILY PRN PO CONSTIPATION; Start at 09:00; Stop 05/15/18 at 10:54; Status DC Quetiapine Fumarate (SEROquel) 12.5 mg QID PO ; Start 05/15/18 at 09:00; Stop at 10:54; Status DC Trazodone HCl (Desyrel) 50 mg PRN QHS PRN PO INSOMNIA, MAY REPEAT X1; Start at 05:30 Multi-Ingredient Ointment (Analgesic [place]) 1 radha PRN QID PRN TP MUSCLE PAIN; Start 05/15/18 at 05:45; Status UNV Al Hydroxide/Mg Hydroxide (Mylanta Plus Xs) 15 ml PRN AFTMEALHC PRN PO DYSPEPSIA; Start 05/15/18 at 05:45; Status UNV Magnesium Hydroxide (Milk Of Magnesia) 2,400 mg PRN QHS PRN PO CONSTIPATION; Start 05/15/18 at 05:45; Status UNV Levetiracetam (Keppra) 500 mg BID PO Last administered on 05/20/18at 19:11; Start 05/15/18 at 09:00 Levothyroxine Sodium (Synthroid) 75 mcg DAILY06 PO Last administered on at 05:31; Start 05/16/18 at 06:00 Pantoprazole Sodium (Protonix) 20 mg BIDBFRMEAL PO ; Start 05/15/18 at 16:30; Stop 05/15/18 at 16:30; Status DC Phenobarbital (Luminal) 64.8 mg BID PO Last administered on 05/20/18 19:11; Start 05/15/18 at 09:00 Cetirizine HCl (ZyrTEC) 10 mg HS PO Last administered on 05/20/18 19:10; Start 05/15/18 at 21:00 Multi-Ingred Cream/Lotion/Oil/ Oint (Hydrocerin) 1 radha PRN Q12HR PRN TP DRY SKIN / SCALING; Start 05/15/18 at 07:30 Guaifenesin (Guaifenesin) 100 mg PRN Q4HRS PRN PO COUGH; Start 05/15/18 at 07: 30; Stop 05/15/18 at 10:54; Status DC Ibuprofen (Motrin) 400 mg PRN Q4HRS PRN PO INFLAMMATION; Start 05/15/18 at 07: 30; Stop 05/15/18 at 11:10; Status DC Olanzapine (ZyPREXA) 5 mg BID PO Last administered on 05/20/18 19:10; Start at 09:00 Mirtazapine (Remeron) 15 mg QHS PO Last administered on 05/20/18 19:11; Start 05/15/18 at 21:00 Tramadol HCl (Ultram) 50 mg PRN Q8HRS PRN PO PAIN; Start 05/15/18 at 07:30 Tramadol HCl (Ultram) 50 mg BID PRN PO PAIN; Start 05/15/18 at 07:30; Stop at 10:54; Status DC Lacosamide (Vimpat) 200 mg BID PO Last administered on 05/20/18 19:10; Start at 09:00 Calcium Carbonate/ Glycine (Oscal) 500 mg BID PO ; Start 05/15/18 at 21:00; Stop 05/15/18 at 21:00; Status DC Guaifenesin (Robitussin) 100 mg PRN Q4HRS PRN PO COUGH; Start 05/15/18 at 10:30 Ibuprofen (Motrin) 400 mg PRN Q4HRS PRN PO PAIN; Start 05/15/18 at 10:30 Multi-Ingred Cream/Lotion/Oil/ Oint (Hydrocerin) 120 radha PRN Q12HR PRN TP dry skin; Start 05/15/18 at 10:30; Stop 05/15/18 at 11:07; Status DC Tramadol HCl (Ultram) 50 mg BID PRN PO PAIN; Start 05/15/18 at 10:30; Stop at 13:43; Status DC Tramadol HCl (Ultram) 50 mg PRN Q8HRS PRN PO PAIN; Start 05/15/18 at 10:30; Stop 05/15/18 at 11:25; Status DC Non-Formulary Medication (Cetirizine Hcl ) 10 mg QHS PO ; Start 05/15/18 at 21: 00; Stop 05/15/18 at 21:00; Status DC Non-Formulary Medication (Mirtazapine (Remeron)) 15 mg QHS PO ; Start 05/15/18 at 21:00; Stop 05/15/18 at 21:00; Status DC Non-Formulary Medication (Olanzapine ) 5 mg BID PO ; Start 05/15/18 at 21:00; Stop 05/15/18 at 21:00; Status DC Atorvastatin Calcium (Lipitor) 10 mg QHS PO Last administered on 05/20/18at 19:10 ; Start 05/15/18 at 21:00 Tramadol HCl (Ultram) 50 mg BID PO Last administered on 05/20/18at 19:14; Start 05/15/18 at 21:00 Pantoprazole Sodium (Protonix) 40 mg DAILYAC PO Last administered on 05/20/18at 08:16; Start 05/15/18 at 11:30 Buspirone HCl (Buspar) 5 mg BIDWBKFT/JIN PO Last administered on 05/19/18at 12:22 ; Start 05/16/18 at 17:00; Stop 05/19/18 at 16:26; Status DC Buspirone HCl (Buspar) 10 mg BIDWBKFT/JIN PO ; Start 05/20/18 at 08:00; Stop 05/20 at 08:29; Status DC Buspirone HCl (Buspar) 10 mg BIDWBKFT/JIN PO Last administered on 05/20/18at 12: 07; Start 05/20/18 at 08:30 Active Scripts Active Reported Tramadol Hcl (Tramadol HCl) 50 Mg Tablet 50 Mg PO BID PRN Tramadol Hcl (Tramadol HCl) 50 Mg Tablet 50 Mg PO PRN Q8HRS PRN Remeron (Mirtazapine) 15 Mg Tablet 15 Mg PO QHS Olanzapine 5 Mg Tablet 5 Mg PO BID Ibuprofen 400 Mg Tablet 400 Mg PO PRN Q4HRS PRN Guaifenesin 100 Mg/5 Ml Liquid 5 Ml PO PRN Q4HRS PRN Eucerin Creme (Mineral Oil/Petrolatum,White) 120 Gm Cream..g. 120 Gm TP PRN Q12HR PRN Cetirizine Hcl 10 Mg Tablet 10 Mg PO QHS Calcium Carbonate 500 Mg Tablet 500 Mg PO BID Levothyroxine Sodium 50 Mcg Tablet 75 Mcg PO DAILY06 Analgesic [place] (Methyl Salicylate/Menthol) 28 Gm Oint...g. 1 Radha TP PRN QID PRN Mag-Al Plus Xs Suspension (Mag Hydrox/Al Hydrox/Simeth) 30 Ml Oral.susp 15 Ml PO PRN AFTMEALHC PRN Vimpat (Lacosamide) 200 Mg Tablet 200 Mg PO BID Milk Of Magnesia (Magnesium Hydroxide) 2,400 Mg/10 Ml Oral.susp 2,400 Mg PO PRN QHS PRN Atorvastatin Calcium 10 Mg Tablet 10 Mg PO QHS Pantoprazole Sodium 40 Mg Tablet.dr 20 Mg PO BIDBFRMEAL Vitamin D3 (Cholecalciferol (Vitamin D3)) 1,000 Unit Tablet 1,000 Unit PO DAILY Phenobarbital 64.8 Mg Tablet 64.8 Mg PO BID Magnesium Oxide 400 Mg Tablet 400 Mg PO TID Tylenol (Acetaminophen) 325 Mg Tablet 650 Mg PO PRN Q6HRS PRN Keppra (Levetiracetam) 250 Mg Tablet 500 Mg PO BID Ferrous Sulfate 325 Mg Tablet 325 Mg PO BIDAFTMEAL Bisacodyl 10 Mg Supp.rect 10 Mg RC PRN DAILY PRN Felbamate 400 Mg Tablet 400 Mg PO TID I have reviewed the current psychotropics carefully including drug interactions. Risk benefit ratio favors no change other than as noted in my dictated progress note. Diagnosis: Problems: (1) Functional diarrhea (2) urinary tract infection (3) Left hip arthroplasty (4) Severe major depression with psychotic features (5) Adjustment disorder with depressed mood (6) Bipolar affective, mixed (7) Impulse control disorder (8) Dementia, vascular, with delusions (9) Dementia, vascular, with depression HARVEY QUIJANO MD May 20, 2018 22:37
--- NOTE | 2018-05-20 23:27 | PN ---
DATE: 05/19/2018 PSYCHIATRIC PROGRESS NOTE This is a late entry for 05/19/2017 and covers elements not covered in my initial note. SUBJECTIVE: I met with the patient in the evening. The patient slept 8-1/4 hours previous night. She seems to respond to a bartering system that is nursing staff do something for her. She expresses some compliance with doing something back including taking her medications. Otherwise, she comes constantly says no to everything somewhat defiant, refuses to answer questions. REVIEW OF SYSTEMS: Ambulation impaired, in wheelchair. No CV, , pulmonary, eye, ENT system symptoms on review. MENTAL STATUS EXAM: Oriented to herself and situation. Speech often responses monosyllabic, has some latency. Abstraction fair, computation impaired, language function intact, attention span short. Mood and affect withdrawn. LABORATORY DATA: Reviewed. IMPRESSION: Unchanged from initial note. PLAN: Increase BuSpar from 5 mg twice a day to 10 mg in the morning and 5 mg in the evening. Continue Remeron, Zyprexa along with trazodone unchanged. MAN Luis QUIJANO MD DR: LOYD/eboni JOB#: [id number] / [id number]
[2018-05-21] MEDS: LEVOTHYROXINE 75 MCG TABLET PO SCH (05:27)
[2018-05-21 05:45] VITALS: BP 101/65
[2018-05-21] MEDS: PHENobarbital 32.4 MG TABLET. PO SCH ×2 (07:49→19:38)
[2018-05-21] MEDS: LACOSAMIDE 50 MG TABLET PO SCH ×2 (07:49→19:37)
[2018-05-21] MEDS: CALCIUM CARBONATE 500 MG TABLET PO SCH ×2 (07:49→16:14)
[2018-05-21] MEDS: FERROUS SULFATE 325 MG TABLET. PO SCH ×2 (07:50→16:15)
[2018-05-21] MEDS: OLANZapine 5 MG TABLET PO SCH ×2 (07:50→19:38)
[2018-05-21] MEDS: MAGNESIUM OXIDE 400 MG TABLET PO SCH ×3 (07:50→19:38)
[2018-05-21] MEDS: FELBAMATE 400 MG TABLET PO SCH ×3 (07:50→19:39)
[2018-05-21] MEDS: CHOLECALCIFEROL (VITAMIN D3) 1,000 UNIT TABLET PO SCH (07:50)
[2018-05-21] MEDS: PANTOPRAZOLE 40 MG TABLET. PO SCH (07:50)
[2018-05-21] MEDS: levETIRAcetam 500 MG TABLET PO SCH ×2 (07:50→19:38)
[2018-05-21] MEDS: traMADol 50 MG TABLET PO SCH ×2 (07:51→19:39)
[2018-05-21] MEDS: busPIRone 5 MG TABLET. PO SCH ×2 (07:52→14:57)
--- NOTE | 2018-05-21 12:00 | NUR ---
WEEKLY ACTIVITY THERAPY NOTE Date of Admission: 05/15/2018, Prev. Admit: 12/19/2017 Date of AT Assessment: 05/18/2018 Goal aimed: to increase engagement and socialization: Initial goal: Pt. will participate in at least three individual or (Activity Therapy) groups per week. Weekly progress towards goal: NA Group participation level: zero Behaviors observed: Pt. is sleepy and wants to be left alone. She is difficult to engage and has a negative attitude Plan: no change to goal
[2018-05-21 15:55] VITALS: BP 93/62
--- NOTE | 2018-05-21 16:20 | NUR ---
Behavior Intervention Response and Plan: BIRP Note: Behavior: Assumed Care of patient, patient located in Hallway at shift change. Patient exhibited the following behavior Withdrawn, Disorganized, Compliant. Brief assessment on rounds of vital signs, medication needs, lab studies, and pain. Treatment plan problems . Intervention: Patient assessed and the following interventions initiated safety checks 15 Minute Checks , Cognitive Assessment , Cognitive Assessment. Response: After interactions and interventions patient responded in the following manner Compliant, Irritable ,Calm. Continue to assess behaviors and condition will continue to monitor throughout the shift as needed. Patient educated on ADL's, and hand hygiene. Plan: Continue to monitor Master Treatment Plan for patient's progress toward short term goals of Decreased Agitation, Decreased Anxiety, prison goals to return to previous living setting vs placement. Continue to assess patient for changes in above assessment. Monitor for medication needs, pain, and safety concerns. Hourly rounding performed to ensure safe environment.
[2018-05-21] MEDS: MIRTAZAPINE 15 MG TABLET PO SCH (19:37)
[2018-05-21] MEDS: ATORVASTATIN CALCIUM 10 MG TABLET. PO SCH (19:37)
[2018-05-21] MEDS: CETIRIZINE HCL 10 MG TABLET PO SCH (19:38)
--- NOTE | 2018-05-21 20:20 | NUR ---
Behavior Intervention Response and Plan: BIRP Note: Behavior: Assumed Care of patient, patient located in Day Room at shift change. Patient exhibited the following behavior Irritable, Compulsive, Compliant. Brief assessment on rounds of vital signs, medication needs, lab studies, and pain. Treatment plan problems . Intervention: Patient assessed and the following interventions initiated safety checks 15 Minute Checks Cognitive Assessment , Head to toe Assessment , Medications. Response: After interactions and interventions patient responded in the following manner, Drowsy , Compliant ,Sleeping. Continue to assess behaviors and condition will continue to monitor throughout the shift as needed. Patient educated on ADL's, and hand hygiene. Plan: Continue to monitor Master Treatment Plan for patient's progress toward short term goals of Decreased Anxiety, Medication Compliance, correction goals to return to previous living setting vs placement. Continue to assess patient for changes in above assessment. Monitor for medication needs, pain, and safety concerns. Hourly rounding performed to ensure safe environment.
--- NOTE | 2018-05-21 21:38 | PN ---
DATE: 05/20/2018 This late entry for 05/20/2018 covers elements not covered in my initial note. SUBJECTIVE: I met with the patient in the evening. The patient slept 7 hours previous night. She is compliant with her medication, but somewhat oppositional per nursing report. She seems to do the opposite of whatever she is asked to and later relents. REVIEW OF SYSTEMS: Ambulation impaired, in wheelchair. No CV, , pulmonary, eye system symptoms on review. MENTAL STATUS EXAM: Oriented to herself and situation. Speech moderate latency, low in rate and rhythm, often responses monosyllabic. Abstraction fair, computation impaired, language function intact. Mood and affect withdrawn. As I met with her, she was stating she does not like it here. When I asked her specifically what was it she did not like, she was noncommittal. In the past, she really would spend a lot of time working on crossword puzzles and have talked with nursing staff to provide crossword puzzle books for her and she was appreciative of this. Mood and affect remains withdrawn. No suicidal ideation, some paranoia persists. Attention span short. Language function intact. Intellect average. Insight somewhat limited. Mood and affect withdrawn. LABORATORY DATA: Reviewed. IMPRESSION: Unchanged from initial note. PLAN: No change from initial note. HARVEY QUIJANO MD DR: LOYD/eboni JOB#: [id number] / [id number]
--- NOTE | 2018-05-21 22:24 | PDOC ---
Exam Note: David Note: Please also refer to the separate dictated note~for this date of service dictated separately.~Patient seen individually. Discussed the patient with Nursing staff reviewed the chart.~Reviewed interim history and current functioning. Reviewed vital signs,~Labs/ Radiology~and current medications noted below. Continue current treatment with the changes noted in the dictated addendum note Assessment: Vital Signs: Vital Signs Date Time Temp Pulse Resp B/P (MAP) Pulse Ox O2 Delivery O2 Flow Rate FiO2 05/21/18 15:55 97.8 79 16 93/62 (72) 96 05/20/18 21:08 Room Air I&O Intake and Output 05/21/18 07:01 Intake Total 960 ml Balance 960 ml Intake Oral 960 ml # Voids 1 # Bowel Movements 1 Current Medications: Meds: Current Medications Haloperidol Lactate (Haldol) 5 mg 1X ONCE IM Last administered on 05/15/18at 00 :47; Start 05/15/18 at 01:00; Stop 05/15/18 at 01:01; Status DC Diphenhydramine HCl (Benadryl) 50 mg 1X ONCE IM Last administered on at 00:47; Start 05/15/18 at 01:00; Stop 05/15/18 at 01:01; Status DC Lorazepam (Ativan) 2 mg 1X ONCE IM Last administered on 05/15/18at 00:46; Start 05/15/18 at 00:30; Stop 05/15/18 at 00:51; Status DC Acetaminophen (Tylenol) 650 mg PRN Q4HRS PRN PO FEVER; Start 05/15/18 at 02:15 ; Stop 05/15/18 at 05:14; Status DC Acetaminophen (Tylenol) 650 mg PRN Q6HRS PRN PO PAIN / TEMP; Start 05/15/18 at 05:15 Calcium Carbonate/ Glycine (Oscal) 500 mg BIDWMEALS PO Last administered on 05/21at 16:14; Start 05/15/18 at 08:00 Vitamin D (Vitamin D3) 1,000 unit DAILY PO Last administered on 05/21/18at 07:50 ; Start 05/15/18 at 09:00 Felbamate (Felbatol) 400 mg TID PO Last administered on 05/21/18at 19:39; Start 05/15/18 at 09:00 Ferrous Sulfate (Feosol) 325 mg BIDAFTMEAL PO Last administered on 05/21/18at 16: 15; Start 05/15/18 at 09:00 Al Hydroxide/Mg Hydroxide (Mylanta Plus Xs) 15 ml PRN AFTMEALHC PRN PO DYSPEPSIA; Start 05/15/18 at 05:15 Multi-Ingredient Ointment (Analgesic [place]) 1 radha PRN QID PRN TP MUSCLE PAIN; Start 05/15/18 at 05:15 Senna/Docusate Sodium (Senna Plus) 1 tab PRN BID PRN PO CONSTIPATION; Start at 05:15; Stop 05/15/18 at 10:54; Status DC Tramadol HCl (Ultram) 50 mg PRN Q6HRS PRN PO PAIN; Start 05/15/18 at 05:15; Stop 05/15/18 at 10:54; Status DC Atorvastatin Calcium (Lipitor) 5 mg QHS PO ; Start 05/15/18 at 21:00; Stop 05/15 at 21:00; Status DC Bisacodyl (Dulcolax Supp) 10 mg PRN DAILY PRN [place] CONSTIPATION; Start 05/15/18 at 05:30 Divalproex Sodium (Depakote Sprinkles) 500 mg DAILY PO ; Start 05/15/18 at 09:00 ; Stop 05/15/18 at 10:54; Status DC Divalproex Sodium (Depakote Sprinkles) 750 mg QHS PO ; Start 05/15/18 at 21:00; Stop 05/15/18 at 21:00; Status DC Duloxetine HCl (Cymbalta) 60 mg DAILY PO ; Start 05/15/18 at 09:00; Stop at 10:54; Status DC Lacosamide (Vimpat) 200 mg BIDAFTMEAL PO ; Start 05/15/18 at 09:00; Stop at 09:00; Status DC Levetiracetam (Keppra) 750 mg BIDAFTMEAL PO ; Start 05/15/18 at 09:00; Stop at 09:00; Status DC Levothyroxine Sodium (Synthroid) 50 mcg DAILY06 PO ; Start 05/15/18 at 06:00; Stop 05/15/18 at 06:00; Status DC Magnesium Hydroxide (Milk Of Magnesia) 2,400 mg PRN QHS PRN PO CONSTIPATION; Start 05/15/18 at 05:30 Magnesium Oxide (Magnesium Oxide) 400 mg TID PO Last administered on 05/21/18at 19:38; Start 05/15/18 at 09:00 Pantoprazole Sodium (Protonix) 40 mg BIDBFRMEAL PO ; Start 05/15/18 at 07:30; Stop 05/15/18 at 07:41; Status DC Phenobarbital (Luminal) 64.8 mg QHS PO ; Start 05/15/18 at 21:00; Stop 05/15/18 at 21:00; Status DC Polyethylene Glycol (miraLAX) 17 gm PRN DAILY PRN PO CONSTIPATION; Start at 09:00; Stop 05/15/18 at 10:54; Status DC Quetiapine Fumarate (SEROquel) 12.5 mg QID PO ; Start 05/15/18 at 09:00; Stop at 10:54; Status DC Trazodone HCl (Desyrel) 50 mg PRN QHS PRN PO INSOMNIA, MAY REPEAT X1; Start at 05:30 Multi-Ingredient Ointment (Analgesic [place]) 1 radha PRN QID PRN TP MUSCLE PAIN; Start 05/15/18 at 05:45; Status UNV Al Hydroxide/Mg Hydroxide (Mylanta Plus Xs) 15 ml PRN AFTMEALHC PRN PO DYSPEPSIA; Start 05/15/18 at 05:45; Status UNV Magnesium Hydroxide (Milk Of Magnesia) 2,400 mg PRN QHS PRN PO CONSTIPATION; Start 05/15/18 at 05:45; Status UNV Levetiracetam (Keppra) 500 mg BID PO Last administered on 05/21/18at 19:38; Start 05/15/18 at 09:00 Levothyroxine Sodium (Synthroid) 75 mcg DAILY06 PO Last administered on at 05:27; Start 05/16/18 at 06:00 Pantoprazole Sodium (Protonix) 20 mg BIDBFRMEAL PO ; Start 05/15/18 at 16:30; Stop 05/15/18 at 16:30; Status DC Phenobarbital (Luminal) 64.8 mg BID PO Last administered on 05/21/18 19:38; Start 05/15/18 at 09:00 Cetirizine HCl (ZyrTEC) 10 mg HS PO Last administered on 05/21/18at 19:38; Start 05/15/18 at 21:00 Multi-Ingred Cream/Lotion/Oil/ Oint (Hydrocerin) 1 radha PRN Q12HR PRN TP DRY SKIN / SCALING; Start 05/15/18 at 07:30 Guaifenesin (Guaifenesin) 100 mg PRN Q4HRS PRN PO COUGH; Start 05/15/18 at 07: 30; Stop 05/15/18 at 10:54; Status DC Ibuprofen (Motrin) 400 mg PRN Q4HRS PRN PO INFLAMMATION; Start 05/15/18 at 07: 30; Stop 05/15/18 at 11:10; Status DC Olanzapine (ZyPREXA) 5 mg BID PO Last administered on 05/21/18 19:38; Start at 09:00 Mirtazapine (Remeron) 15 mg QHS PO Last administered on 05/21/18 19:37; Start 05/15/18 at 21:00 Tramadol HCl (Ultram) 50 mg PRN Q8HRS PRN PO PAIN; Start 05/15/18 at 07:30 Tramadol HCl (Ultram) 50 mg BID PRN PO PAIN; Start 05/15/18 at 07:30; Stop at 10:54; Status DC Lacosamide (Vimpat) 200 mg BID PO Last administered on 05/21/18 19:37; Start at 09:00 Calcium Carbonate/ Glycine (Oscal) 500 mg BID PO ; Start 05/15/18 at 21:00; Stop 05/15/18 at 21:00; Status DC Guaifenesin (Robitussin) 100 mg PRN Q4HRS PRN PO COUGH; Start 05/15/18 at 10:30 Ibuprofen (Motrin) 400 mg PRN Q4HRS PRN PO PAIN; Start 05/15/18 at 10:30 Multi-Ingred Cream/Lotion/Oil/ Oint (Hydrocerin) 120 radha PRN Q12HR PRN TP dry skin; Start 05/15/18 at 10:30; Stop 05/15/18 at 11:07; Status DC Tramadol HCl (Ultram) 50 mg BID PRN PO PAIN; Start 05/15/18 at 10:30; Stop at 13:43; Status DC Tramadol HCl (Ultram) 50 mg PRN Q8HRS PRN PO PAIN; Start 05/15/18 at 10:30; Stop 05/15/18 at 11:25; Status DC Non-Formulary Medication (Cetirizine Hcl ) 10 mg QHS PO ; Start 05/15/18 at 21: 00; Stop 05/15/18 at 21:00; Status DC Non-Formulary Medication (Mirtazapine (Remeron)) 15 mg QHS PO ; Start 05/15/18 at 21:00; Stop 05/15/18 at 21:00; Status DC Non-Formulary Medication (Olanzapine ) 5 mg BID PO ; Start 05/15/18 at 21:00; Stop 05/15/18 at 21:00; Status DC Atorvastatin Calcium (Lipitor) 10 mg QHS PO Last administered on 05/21/18at 19:37 ; Start 05/15/18 at 21:00 Tramadol HCl (Ultram) 50 mg BID PO Last administered on 05/21/18at 19:39; Start 05/15/18 at 21:00 Pantoprazole Sodium (Protonix) 40 mg DAILYAC PO Last administered on 05/21/18at 07:50; Start 05/15/18 at 11:30 Buspirone HCl (Buspar) 5 mg BIDWBKFT/JIN PO Last administered on 05/19/18at 12:22 ; Start 05/16/18 at 17:00; Stop 05/19/18 at 16:26; Status DC Buspirone HCl (Buspar) 10 mg BIDWBKFT/JIN PO ; Start 05/20/18 at 08:00; Stop 05/20 at 08:29; Status DC Buspirone HCl (Buspar) 10 mg BIDWBKFT/JIN PO Last administered on 05/21/18at 14: 57; Start 05/20/18 at 08:30; Stop 05/22/18 at 21:00 Buspirone HCl (Buspar) 15 mg BIDACBL PO ; Start 05/23/18 at 07:30 Active Scripts Active Reported Tramadol Hcl (Tramadol HCl) 50 Mg Tablet 50 Mg PO BID PRN Tramadol Hcl (Tramadol HCl) 50 Mg Tablet 50 Mg PO PRN Q8HRS PRN Remeron (Mirtazapine) 15 Mg Tablet 15 Mg PO QHS Olanzapine 5 Mg Tablet 5 Mg PO BID Ibuprofen 400 Mg Tablet 400 Mg PO PRN Q4HRS PRN Guaifenesin 100 Mg/5 Ml Liquid 5 Ml PO PRN Q4HRS PRN Eucerin Creme (Mineral Oil/Petrolatum,White) 120 Gm Cream..g. 120 Gm TP PRN Q12HR PRN Cetirizine Hcl 10 Mg Tablet 10 Mg PO QHS Calcium Carbonate 500 Mg Tablet 500 Mg PO BID Levothyroxine Sodium 50 Mcg Tablet 75 Mcg PO DAILY06 Analgesic [place] (Methyl Salicylate/Menthol) 28 Gm Oint...g. 1 Radha TP PRN QID PRN Mag-Al Plus Xs Suspension (Mag Hydrox/Al Hydrox/Simeth) 30 Ml Oral.susp 15 Ml PO PRN AFTMEALHC PRN Vimpat (Lacosamide) 200 Mg Tablet 200 Mg PO BID Milk Of Magnesia (Magnesium Hydroxide) 2,400 Mg/10 Ml Oral.susp 2,400 Mg PO PRN QHS PRN Atorvastatin Calcium 10 Mg Tablet 10 Mg PO QHS Pantoprazole Sodium 40 Mg Tablet.dr 20 Mg PO BIDBFRMEAL Vitamin D3 (Cholecalciferol (Vitamin D3)) 1,000 Unit Tablet 1,000 Unit PO DAILY Phenobarbital 64.8 Mg Tablet 64.8 Mg PO BID Magnesium Oxide 400 Mg Tablet 400 Mg PO TID Tylenol (Acetaminophen) 325 Mg Tablet 650 Mg PO PRN Q6HRS PRN Keppra (Levetiracetam) 250 Mg Tablet 500 Mg PO BID Ferrous Sulfate 325 Mg Tablet 325 Mg PO BIDAFTMEAL Bisacodyl 10 Mg Supp.rect 10 Mg RC PRN DAILY PRN Felbamate 400 Mg Tablet 400 Mg PO TID I have reviewed the current psychotropics carefully including drug interactions. Risk benefit ratio favors no change other than as noted in my dictated progress note. Diagnosis: Problems: (1) Functional diarrhea (2) urinary tract infection (3) Left hip arthroplasty (4) Severe major depression with psychotic features (5) Adjustment disorder with depressed mood (6) Bipolar affective, mixed (7) Impulse control disorder (8) Dementia, vascular, with delusions (9) Dementia, vascular, with depression HARVEY QUIJANO MD May 21, 2018 22:24
[2018-05-22] MEDS: LEVOTHYROXINE 75 MCG TABLET PO SCH (05:11)
[2018-05-22 06:31] VITALS: BP 102/63
[2018-05-22] MEDS: CHOLECALCIFEROL (VITAMIN D3) 1,000 UNIT TABLET PO SCH (07:53)
[2018-05-22] MEDS: LACOSAMIDE 50 MG TABLET PO SCH ×2 (07:53→19:12)
[2018-05-22] MEDS: traMADol 50 MG TABLET PO SCH ×2 (07:53→19:14)
[2018-05-22] MEDS: PANTOPRAZOLE 40 MG TABLET. PO SCH (07:53)
[2018-05-22] MEDS: PHENobarbital 32.4 MG TABLET. PO SCH ×2 (07:54→19:12)
[2018-05-22] MEDS: CALCIUM CARBONATE 500 MG TABLET PO SCH ×2 (07:54→17:24)
[2018-05-22] MEDS: MAGNESIUM OXIDE 400 MG TABLET PO SCH ×3 (07:54→19:11)
[2018-05-22] MEDS: FELBAMATE 400 MG TABLET PO SCH ×3 (07:54→19:14)
[2018-05-22] MEDS: FERROUS SULFATE 325 MG TABLET. PO SCH ×2 (07:54→17:24)
[2018-05-22] MEDS: OLANZapine 5 MG TABLET PO SCH ×2 (07:54→19:12)
[2018-05-22] MEDS: busPIRone 5 MG TABLET. PO SCH ×2 (07:54→12:00)
[2018-05-22] MEDS: levETIRAcetam 500 MG TABLET PO SCH ×2 (07:54→19:11)
[2018-05-22 07:55] LABS: BASO % 1 % (0-3); EOS # 0.3 x10^3/uL (0.0-0.7); EOS % 7 % (0-3); HEMATOCRIT 30.8 % (36.0-47.0); HEMOGLOBIN 10.5 g/dL (12.0-15.5); LYMPH # 1.6 x10^3/uL (1.0-4.8); LYMPH % 39 % (24-48); MEAN CORPUSCULAR HEMOGLOBIN 33 pg (25-35); MEAN CORPUSCULAR HGB CONC 34 g/dL (31-37); MEAN CORPUSCULAR VOLUME 97 fL (79-100); MONO # 0.5 x10^3/uL (0.0-1.1); MONO % 11 % (0-9); NEUT # 1.8 x10^3uL (1.8-7.7); NEUT % 42 % (31-73); PLATELET COUNT 211 x10^3/uL (140-400); RED BLOOD COUNT 3.18 x10^6/uL (3.50-5.40); RED CELL DISTRIBUTION WIDTH 13.7 % (11.5-14.5); WHITE BLOOD COUNT 4.2 x10^3/uL (4.0-11.0)
[2018-05-22 08:05] LABS: ALBUMIN 2.7 g/dL (3.4-5.0); ALBUMIN/GLOBULIN RATIO 0.8 (1.0-1.7); CALCIUM 8.8 mg/dL (8.5-10.1); CREATININE 0.7 mg/dL (0.6-1.0); POTASSIUM 4.2 mmol/L (3.5-5.1); TOTAL BILIRUBIN 0.2 mg/dL (0.2-1.0); TOTAL PROTEIN 6.1 g/dL (6.4-8.2)
--- NOTE | 2018-05-22 08:35 | NUR ---
Behavior Intervention Response and Plan: BIRP Note: Behavior: Assumed Care of patient, patient located in Day Room at shift change. Patient exhibited the following behavior Wandering, Disorganized, Resistive. Brief assessment on rounds of vital signs, medication needs, lab studies, and pain. Treatment plan problems 1 & 2. Intervention: Patient assessed and the following interventions initiated safety checks 15 Minute Checks Cognitive Assessment , Head to toe Assessment , Medications. Response: After interactions and interventions patient responded in the following manner, Calm , Wandering ,Resistive. Continue to assess behaviors and condition will continue to monitor throughout the shift as needed. Patient educated on ADL's, and hand hygiene. Plan: Continue to monitor Master Treatment Plan for patient's progress toward short term goals of Medication Compliance, No harm To self/ others, intermediate frame tender goals to return to previous living setting vs placement. Continue to assess patient for changes in above assessment. Monitor for medication needs, pain, and safety concerns. Hourly rounding performed to ensure safe environment.
--- NOTE | 2018-05-22 11:22 | NUR ---
WEEKLY NOTE: Pt attempts to be resistive to medications but does end up taking them. Pt is able to ambulate self in her w/c using her feet and can transfer on her own/self-toilets. Pt facility would like to have pt evaluated for a Level II screen. Pt brought this up with the team and they agreed that pt could have the screening, once she returned to her facility. SW will continue to work with pt son and the facility on discharge plans.
--- NOTE | 2018-05-22 14:20 | NUR ---
Pt. stated the glasses she was wearing were not strong enough but she didn't want to give them up because she can't see without them. STEM THRESHING MACHINE OPERATOR spoke with Pt's nurse about this issue and Pt's nurse stated their family would have to bring her glasses to us. STEM THRESHING MACHINE OPERATOR called Pt's placement and left a voicemail with Lupe ([phone]) to confirm her glasses where there as they were not inventoried here. STEM THRESHING MACHINE OPERATOR gave Lupe her direct phone line and explained she wanted to locate the glasses before reaching out to Pt's son, Kaushik ([phone]), with a request to bring them here.
--- NOTE | 2018-05-22 14:58 | NUR ---
PATTI returned call to [facility] to discuss pt returning to them and having them complete the level II at their facility as we are an acute care facility. That process takes a long time and is not appropriate to begin that there. [facility] is just concerned that pt will not be safe if she returned but understands that pt is not displaying the behaviors appropriate for [facility] to initiate a level II. [facility] notified PATTI that she has put her notice in and her last day is on Saturday. She will be working for [employer]. When discharge for [facility] needs to be discussed, PATTI will need to reach out to Alice.
[2018-05-22 16:37] VITALS: BP 93/63
[2018-05-22] MEDS: CETIRIZINE HCL 10 MG TABLET PO SCH (19:11)
[2018-05-22] MEDS: ATORVASTATIN CALCIUM 10 MG TABLET. PO SCH (19:11)
[2018-05-22] MEDS: MIRTAZAPINE 15 MG TABLET PO SCH (19:14)
[2018-05-22 20:03] VITALS: BP 113/80
--- NOTE | 2018-05-22 22:21 | PDOC ---
Exam Note: David Note: Please also refer to the separate dictated note~for this date of service dictated separately.~Patient seen individually. Discussed the patient with Nursing staff reviewed the chart.~Reviewed interim history and current functioning. Reviewed vital signs,~Labs/ Radiology~and current medications noted below. Continue current treatment with the changes noted in the dictated addendum note Assessment: Vital Signs: Vital Signs Date Time Temp Pulse Resp B/P (MAP) Pulse Ox O2 Delivery O2 Flow Rate FiO2 05/22/18 20:14 93 05/22/18 20:03 98.5 90 19 113/80 (91) Room Air I&O Intake and Output 05/22/18 07:01 Intake Total 1200 ml Balance 1200 ml Intake Oral 1200 ml # Voids 1 Labs: Laboratory Tests Test 05/22/18 07:40 White Blood Count 4.2 x10^3/uL (4.0-11.0) Red Blood Count 3.18 x10^6/uL (3.50-5.40) L Hemoglobin 10.5 g/dL (12.0-15.5) L Hematocrit 30.8 % (36.0-47.0) L Mean Corpuscular Volume 97 fL (79-100) Mean Corpuscular Hemoglobin 33 pg (25-35) Mean Corpuscular Hemoglobin Concent 34 g/dL (31-37) Red Cell Distribution Width 13.7 % (11.5-14.5) Platelet Count 211 x10^3/uL (140-400) Neutrophils (%) (Auto) 42 % (31-73) Lymphocytes (%) (Auto) 39 % (24-48) Monocytes (%) (Auto) 11 % (0-9) H Eosinophils (%) (Auto) 7 % (0-3) H Basophils (%) (Auto) 1 % (0-3) Neutrophils # (Auto) 1.8 x10^3uL (1.8-7.7) Lymphocytes # (Auto) 1.6 x10^3/uL (1.0-4.8) Monocytes # (Auto) 0.5 x10^3/uL (0.0-1.1) Eosinophils # (Auto) 0.3 x10^3/uL (0.0-0.7) Basophils # (Auto) 0.0 x10^3/uL (0.0-0.2) Sodium Level 143 mmol/L (136-145) Potassium Level 4.2 mmol/L (3.5-5.1) Chloride Level 105 mmol/L (98-107) Carbon Dioxide Level 33 mmol/L (21-32) H Anion Gap 5 (6-14) L Blood Urea Nitrogen 28 mg/dL (7-20) H Creatinine 0.7 mg/dL (0.6-1.0) Estimated GFR (Cockcroft-Gault) 84.0 BUN/Creatinine Ratio 40 (6-20) H Glucose Level 92 mg/dL (70-99) Calcium Level 8.8 mg/dL (8.5-10.1) Total Bilirubin 0.2 mg/dL (0.2-1.0) Aspartate Amino Transferase (AST) 17 U/L (15-37) Alanine Aminotransferase (ALT) 20 U/L (14-59) Alkaline Phosphatase 108 U/L (46-116) Total Protein 6.1 g/dL (6.4-8.2) L Albumin 2.7 g/dL (3.4-5.0) L Albumin/Globulin Ratio 0.8 (1.0-1.7) L Current Medications: Meds: Current Medications Haloperidol Lactate (Haldol) 5 mg 1X ONCE IM Last administered on 05/15/18at 00 :47; Start 05/15/18 at 01:00; Stop 05/15/18 at 01:01; Status DC Diphenhydramine HCl (Benadryl) 50 mg 1X ONCE IM Last administered on at 00:47; Start 05/15/18 at 01:00; Stop 05/15/18 at 01:01; Status DC Lorazepam (Ativan) 2 mg 1X ONCE IM Last administered on 05/15/18at 00:46; Start 05/15/18 at 00:30; Stop 05/15/18 at 00:51; Status DC Acetaminophen (Tylenol) 650 mg PRN Q4HRS PRN PO FEVER; Start 05/15/18 at 02:15 ; Stop 05/15/18 at 05:14; Status DC Acetaminophen (Tylenol) 650 mg PRN Q6HRS PRN PO PAIN / TEMP; Start 05/15/18 at 05:15 Calcium Carbonate/ Glycine (Oscal) 500 mg BIDWMEALS PO Last administered on 05/22at 17:24; Start 05/15/18 at 08:00 Vitamin D (Vitamin D3) 1,000 unit DAILY PO Last administered on 05/22/18at 07:53 ; Start 05/15/18 at 09:00 Felbamate (Felbatol) 400 mg TID PO Last administered on 05/22/18at 19:14; Start 05/15/18 at 09:00 Ferrous Sulfate (Feosol) 325 mg BIDAFTMEAL PO Last administered on 05/22/18at 17: 24; Start 05/15/18 at 09:00 Al Hydroxide/Mg Hydroxide (Mylanta Plus Xs) 15 ml PRN AFTMEALHC PRN PO DYSPEPSIA; Start 05/15/18 at 05:15 Multi-Ingredient Ointment (Analgesic Patrick) 1 radha PRN QID PRN TP MUSCLE PAIN; Start 05/15/18 at 05:15 Senna/Docusate Sodium (Senna Plus) 1 tab PRN BID PRN PO CONSTIPATION; Start at 05:15; Stop 05/15/18 at 10:54; Status DC Tramadol HCl (Ultram) 50 mg PRN Q6HRS PRN PO PAIN; Start 05/15/18 at 05:15; Stop 05/15/18 at 10:54; Status DC Atorvastatin Calcium (Lipitor) 5 mg QHS PO ; Start 05/15/18 at 21:00; Stop 05/15 at 21:00; Status DC Bisacodyl (Dulcolax Supp) 10 mg PRN DAILY PRN MD CONSTIPATION; Start 05/15/18 at 05:30 Divalproex Sodium (Depakote Sprinkles) 500 mg DAILY PO ; Start 05/15/18 at 09:00 ; Stop 05/15/18 at 10:54; Status DC Divalproex Sodium (Depakote Sprinkles) 750 mg QHS PO ; Start 05/15/18 at 21:00; Stop 05/15/18 at 21:00; Status DC Duloxetine HCl (Cymbalta) 60 mg DAILY PO ; Start 05/15/18 at 09:00; Stop at 10:54; Status DC Lacosamide (Vimpat) 200 mg BIDAFTMEAL PO ; Start 05/15/18 at 09:00; Stop at 09:00; Status DC Levetiracetam (Keppra) 750 mg BIDAFTMEAL PO ; Start 05/15/18 at 09:00; Stop at 09:00; Status DC Levothyroxine Sodium (Synthroid) 50 mcg DAILY06 PO ; Start 05/15/18 at 06:00; Stop 05/15/18 at 06:00; Status DC Magnesium Hydroxide (Milk Of Magnesia) 2,400 mg PRN QHS PRN PO CONSTIPATION; Start 05/15/18 at 05:30 Magnesium Oxide (Magnesium Oxide) 400 mg TID PO Last administered on 05/22/18at 19:11; Start 05/15/18 at 09:00 Pantoprazole Sodium (Protonix) 40 mg BIDBFRMEAL PO ; Start 05/15/18 at 07:30; Stop 05/15/18 at 07:41; Status DC Phenobarbital (Luminal) 64.8 mg QHS PO ; Start 05/15/18 at 21:00; Stop 05/15/18 at 21:00; Status DC Polyethylene Glycol (miraLAX) 17 gm PRN DAILY PRN PO CONSTIPATION; Start at 09:00; Stop 05/15/18 at 10:54; Status DC Quetiapine Fumarate (SEROquel) 12.5 mg QID PO ; Start 05/15/18 at 09:00; Stop at 10:54; Status DC Trazodone HCl (Desyrel) 50 mg PRN QHS PRN PO INSOMNIA, MAY REPEAT X1; Start at 05:30 Multi-Ingredient Ointment (Analgesic Patrick) 1 radha PRN QID PRN TP MUSCLE PAIN; Start 05/15/18 at 05:45; Status UNV Al Hydroxide/Mg Hydroxide (Mylanta Plus Xs) 15 ml PRN AFTMEALHC PRN PO DYSPEPSIA; Start 05/15/18 at 05:45; Status UNV Magnesium Hydroxide (Milk Of Magnesia) 2,400 mg PRN QHS PRN PO CONSTIPATION; Start 05/15/18 at 05:45; Status UNV Levetiracetam (Keppra) 500 mg BID PO Last administered on 05/22/18 19:11; Start 05/15/18 at 09:00 Levothyroxine Sodium (Synthroid) 75 mcg DAILY06 PO Last administered on 05:11; Start 05/16/18 at 06:00 Pantoprazole Sodium (Protonix) 20 mg BIDBFRMEAL PO ; Start 05/15/18 at 16:30; Stop 05/15/18 at 16:30; Status DC Phenobarbital (Luminal) 64.8 mg BID PO Last administered on 05/22/18 19:12; Start 05/15/18 at 09:00 Cetirizine HCl (ZyrTEC) 10 mg HS PO Last administered on 05/22/18 19:11; Start 05/15/18 at 21:00 Multi-Ingred Cream/Lotion/Oil/ Oint (Hydrocerin) 1 radha PRN Q12HR PRN TP DRY SKIN / SCALING; Start 05/15/18 at 07:30 Guaifenesin (Guaifenesin) 100 mg PRN Q4HRS PRN PO COUGH; Start 05/15/18 at 07: 30; Stop 05/15/18 at 10:54; Status DC Ibuprofen (Motrin) 400 mg PRN Q4HRS PRN PO INFLAMMATION; Start 05/15/18 at 07: 30; Stop 05/15/18 at 11:10; Status DC Olanzapine (ZyPREXA) 5 mg BID PO Last administered on 05/22/18 19:12; Start at 09:00 Mirtazapine (Remeron) 15 mg QHS PO Last administered on 05/22/18 19:14; Start 05/15/18 at 21:00 Tramadol HCl (Ultram) 50 mg PRN Q8HRS PRN PO PAIN; Start 05/15/18 at 07:30 Tramadol HCl (Ultram) 50 mg BID PRN PO PAIN; Start 05/15/18 at 07:30; Stop at 10:54; Status DC Lacosamide (Vimpat) 200 mg BID PO Last administered on 05/22/18 19:12; Start at 09:00 Calcium Carbonate/ Glycine (Oscal) 500 mg BID PO ; Start 05/15/18 at 21:00; Stop 05/15/18 at 21:00; Status DC Guaifenesin (Robitussin) 100 mg PRN Q4HRS PRN PO COUGH; Start 05/15/18 at 10:30 Ibuprofen (Motrin) 400 mg PRN Q4HRS PRN PO PAIN; Start 05/15/18 at 10:30 Multi-Ingred Cream/Lotion/Oil/ Oint (Hydrocerin) 120 radha PRN Q12HR PRN TP dry skin; Start 05/15/18 at 10:30; Stop 05/15/18 at 11:07; Status DC Tramadol HCl (Ultram) 50 mg BID PRN PO PAIN; Start 05/15/18 at 10:30; Stop at 13:43; Status DC Tramadol HCl (Ultram) 50 mg PRN Q8HRS PRN PO PAIN; Start 05/15/18 at 10:30; Stop 05/15/18 at 11:25; Status DC Non-Formulary Medication (Cetirizine Hcl ) 10 mg QHS PO ; Start 05/15/18 at 21: 00; Stop 05/15/18 at 21:00; Status DC Non-Formulary Medication (Mirtazapine (Remeron)) 15 mg QHS PO ; Start 05/15/18 at 21:00; Stop 05/15/18 at 21:00; Status DC Non-Formulary Medication (Olanzapine ) 5 mg BID PO ; Start 05/15/18 at 21:00; Stop 05/15/18 at 21:00; Status DC Atorvastatin Calcium (Lipitor) 10 mg QHS PO Last administered on 05/22/18at 19:11 ; Start 05/15/18 at 21:00 Tramadol HCl (Ultram) 50 mg BID PO Last administered on 05/22/18at 19:14; Start 05/15/18 at 21:00 Pantoprazole Sodium (Protonix) 40 mg DAILYAC PO Last administered on 05/22/18at 07:53; Start 05/15/18 at 11:30 Buspirone HCl (Buspar) 5 mg BIDWBKFT/JIN PO Last administered on 05/19/18at 12:22 ; Start 05/16/18 at 17:00; Stop 05/19/18 at 16:26; Status DC Buspirone HCl (Buspar) 10 mg BIDWBKFT/JIN PO ; Start 05/20/18 at 08:00; Stop 05/20 at 08:29; Status DC Buspirone HCl (Buspar) 10 mg BIDWBKFT/JIN PO Last administered on 05/22/18at 12: 00; Start 05/20/18 at 08:30; Stop 05/22/18 at 21:00; Status DC Buspirone HCl (Buspar) 15 mg BIDACBL PO ; Start 05/23/18 at 07:30 Active Scripts Active Reported Tramadol Hcl (Tramadol HCl) 50 Mg Tablet 50 Mg PO BID PRN Tramadol Hcl (Tramadol HCl) 50 Mg Tablet 50 Mg PO PRN Q8HRS PRN Remeron (Mirtazapine) 15 Mg Tablet 15 Mg PO QHS Olanzapine 5 Mg Tablet 5 Mg PO BID Ibuprofen 400 Mg Tablet 400 Mg PO PRN Q4HRS PRN Guaifenesin 100 Mg/5 Ml Liquid 5 Ml PO PRN Q4HRS PRN Eucerin Creme (Mineral Oil/Petrolatum,White) 120 Gm Cream..g. 120 Gm TP PRN Q12HR PRN Cetirizine Hcl 10 Mg Tablet 10 Mg PO QHS Calcium Carbonate 500 Mg Tablet 500 Mg PO BID Levothyroxine Sodium 50 Mcg Tablet 75 Mcg PO DAILY06 Analgesic Patrick (Methyl Salicylate/Menthol) 28 Gm Oint...g. 1 Radha TP PRN QID PRN Mag-Al Plus Xs Suspension (Mag Hydrox/Al Hydrox/Simeth) 30 Ml Oral.susp 15 Ml PO PRN AFTMEALHC PRN Vimpat (Lacosamide) 200 Mg Tablet 200 Mg PO BID Milk Of Magnesia (Magnesium Hydroxide) 2,400 Mg/10 Ml Oral.susp 2,400 Mg PO PRN QHS PRN Atorvastatin Calcium 10 Mg Tablet 10 Mg PO QHS Pantoprazole Sodium 40 Mg Tablet.dr 20 Mg PO BIDBFRMEAL Vitamin D3 (Cholecalciferol (Vitamin D3)) 1,000 Unit Tablet 1,000 Unit PO DAILY Phenobarbital 64.8 Mg Tablet 64.8 Mg PO BID Magnesium Oxide 400 Mg Tablet 400 Mg PO TID Tylenol (Acetaminophen) 325 Mg Tablet 650 Mg PO PRN Q6HRS PRN Keppra (Levetiracetam) 250 Mg Tablet 500 Mg PO BID Ferrous Sulfate 325 Mg Tablet 325 Mg PO BIDAFTMEAL Bisacodyl 10 Mg Supp.rect 10 Mg RC PRN DAILY PRN Felbamate 400 Mg Tablet 400 Mg PO TID I have reviewed the current psychotropics carefully including drug interactions. Risk benefit ratio favors no change other than as noted in my dictated progress note. Diagnosis: Problems: (1) Functional diarrhea (2) urinary tract infection (3) Left hip arthroplasty (4) Severe major depression with psychotic features (5) Adjustment disorder with depressed mood (6) Bipolar affective, mixed (7) Impulse control disorder (8) Dementia, vascular, with delusions (9) Dementia, vascular, with depression HARVEY QUIJANO MD May 22, 2018 22:21
--- NOTE | 2018-05-22 22:45 | NUR ---
Pt sitting in hallway at shift change. Pt irritable but calm, wandering in w/c in hallways. Pt cooperative with assessment and compliant with medications while also stating "I don't like medicine. I don't like taking medicine."
--- NOTE | 2018-05-23 02:42 | PN ---
DATE: 05/21/2018 This late entry for 05/21/2018 covers elements not covered in my initial note. SUBJECTIVE: I met with the patient in the evening and staffed at treatment team meeting with the entire team. The patient has been resistive to medications, initially refuses, takes it later with quite persistence. She has been quiet, somewhat irritable at times, put herself in the bed. Slept 7 hours previous night. Appetite 90%. REVIEW OF SYSTEMS: Ambulation impaired at wheelchair. No CV, , pulmonary, eye, ENT system symptoms on review. MENTAL STATUS EXAM: Oriented to herself and situation. Speech moderate latency, often responses monosyllabic. Abstraction fair, computation impaired, language function intact. Attention span short. She is somewhat paranoid. When I questioned her how she was doing, she stated she was bored because there is nothing to do. In the past, she has worked on crossword puzzles almost constantly day after day and kept herself busy in this way. I have discussed with nursing staff and they will provide her a puzzle book or several of them to help with this. No suicidal or homicidal ideation. LABORATORY DATA: Reviewed. IMPRESSION: Unchanged. PLAN: Increase BuSpar from 10 mg twice a day to 15 mg twice a day. Maintain Remeron along with Zyprexa 5 mg b.i.d., trazodone p.r.n. HARVEY QUIJANO MD DR: LOYD/eboni JOB#: [id number] / [id number]
[2018-05-23 05:46] VITALS: BP 94/58
[2018-05-23] MEDS: LEVOTHYROXINE 75 MCG TABLET PO SCH (06:18)
--- NOTE | 2018-05-23 08:30 | NUR ---
Behavior Intervention Response and Plan: BIRP Note: Behavior: Assumed Care of patient, patient located in Day Room at shift change. Patient exhibited the following behavior Wandering, Disorganized, Resistive. Brief assessment on rounds of vital signs, medication needs, lab studies, and pain. Treatment plan problems 1 & 2. Intervention: Patient assessed and the following interventions initiated safety checks 15 Minute Checks Cognitive Assessment , Head to toe Assessment , Medications. Response: After interactions and interventions patient responded in the following manner, Calm , Wandering ,Resistive. Continue to assess behaviors and condition will continue to monitor throughout the shift as needed. Patient educated on ADL's, and hand hygiene. Plan: Continue to monitor Master Treatment Plan for patient's progress toward short term goals of Medication Compliance, No harm To self/ others, exterminator helper goals to return to previous living setting vs placement. Continue to assess patient for changes in above assessment. Monitor for medication needs, pain, and safety concerns. Hourly rounding performed to ensure safe environment.
[2018-05-23] MEDS: CHOLECALCIFEROL (VITAMIN D3) 1,000 UNIT TABLET PO SCH (08:34)
[2018-05-23] MEDS: levETIRAcetam 500 MG TABLET PO SCH ×2 (08:34→19:38)
[2018-05-23] MEDS: FERROUS SULFATE 325 MG TABLET. PO SCH ×2 (08:34→17:19)
[2018-05-23] MEDS: OLANZapine 5 MG TABLET PO SCH ×2 (08:34→19:38)
[2018-05-23] MEDS: MAGNESIUM OXIDE 400 MG TABLET PO SCH ×3 (08:35→19:38)
[2018-05-23] MEDS: CALCIUM CARBONATE 500 MG TABLET PO SCH ×2 (08:35→17:19)
[2018-05-23] MEDS: PANTOPRAZOLE 40 MG TABLET. PO SCH (08:35)
[2018-05-23] MEDS: FELBAMATE 400 MG TABLET PO SCH ×3 (08:35→19:40)
[2018-05-23] MEDS: busPIRone 15 MG TABLET. PO SCH ×2 (08:37→11:58)
[2018-05-23] MEDS: traMADol 50 MG TABLET PO SCH ×2 (08:38→19:39)
[2018-05-23] MEDS: LACOSAMIDE 50 MG TABLET PO SCH ×2 (08:38→19:38)
[2018-05-23] MEDS: PHENobarbital 32.4 MG TABLET. PO SCH ×2 (08:38→19:39)
--- NOTE | 2018-05-23 12:06 | NUR ---
PATTI emailed Kaushik to give him an update on pt behaviors and the conversation PATTI had with Leanne at [facility] re: pt being admitted back there and they can complete a level II from there.
[2018-05-23 16:21] VITALS: BP 128/73
[2018-05-23] MEDS: CETIRIZINE HCL 10 MG TABLET PO SCH (19:38)
[2018-05-23] MEDS: MIRTAZAPINE 15 MG TABLET PO SCH (19:38)
[2018-05-23] MEDS: ATORVASTATIN CALCIUM 10 MG TABLET. PO SCH (19:38)
--- NOTE | 2018-05-23 22:28 | PDOC ---
Exam Note: David Note: Please also refer to the separate dictated note~for this date of service dictated separately.~Patient seen individually. Discussed the patient with Nursing staff reviewed the chart.~Reviewed interim history and current functioning. Reviewed vital signs,~Labs/ Radiology~and current medications noted below. Continue current treatment with the changes noted in the dictated addendum note Assessment: Vital Signs: Vital Signs Date Time Temp Pulse Resp B/P (MAP) Pulse Ox O2 Delivery O2 Flow Rate FiO2 05/23/18 20:39 99 05/23/18 16:21 97.9 64 16 128/73 (91) Room Air I&O Intake and Output 05/23/18 07:01 Intake Total 1040 ml Balance 1040 ml Intake Oral 1040 ml # Bowel Movements 1 Current Medications: Meds: Current Medications Haloperidol Lactate (Haldol) 5 mg 1X ONCE IM Last administered on 05/15/18at 00 :47; Start 05/15/18 at 01:00; Stop 05/15/18 at 01:01; Status DC Diphenhydramine HCl (Benadryl) 50 mg 1X ONCE IM Last administered on at 00:47; Start 05/15/18 at 01:00; Stop 05/15/18 at 01:01; Status DC Lorazepam (Ativan) 2 mg 1X ONCE IM Last administered on 05/15/18at 00:46; Start 05/15/18 at 00:30; Stop 05/15/18 at 00:51; Status DC Acetaminophen (Tylenol) 650 mg PRN Q4HRS PRN PO FEVER; Start 05/15/18 at 02:15 ; Stop 05/15/18 at 05:14; Status DC Acetaminophen (Tylenol) 650 mg PRN Q6HRS PRN PO PAIN / TEMP; Start 05/15/18 at 05:15 Calcium Carbonate/ Glycine (Oscal) 500 mg BIDWMEALS PO Last administered on 05/23 17:19; Start 05/15/18 at 08:00 Vitamin D (Vitamin D3) 1,000 unit DAILY PO Last administered on 05/23/18at 08:34 ; Start 05/15/18 at 09:00 Felbamate (Felbatol) 400 mg TID PO Last administered on 05/23/18at 19:40; Start 05/15/18 at 09:00 Ferrous Sulfate (Feosol) 325 mg BIDAFTMEAL PO Last administered on 05/23/18at 17: 19; Start 05/15/18 at 09:00 Al Hydroxide/Mg Hydroxide (Mylanta Plus Xs) 15 ml PRN AFTMEALHC PRN PO DYSPEPSIA; Start 05/15/18 at 05:15 Multi-Ingredient Ointment (Analgesic [place]) 1 radha PRN QID PRN TP MUSCLE PAIN; Start 05/15/18 at 05:15 Senna/Docusate Sodium (Senna Plus) 1 tab PRN BID PRN PO CONSTIPATION; Start at 05:15; Stop 05/15/18 at 10:54; Status DC Tramadol HCl (Ultram) 50 mg PRN Q6HRS PRN PO PAIN; Start 05/15/18 at 05:15; Stop 05/15/18 at 10:54; Status DC Atorvastatin Calcium (Lipitor) 5 mg QHS PO ; Start 05/15/18 at 21:00; Stop 05/15 at 21:00; Status DC Bisacodyl (Dulcolax Supp) 10 mg PRN DAILY PRN [place] CONSTIPATION; Start 05/15/18 at 05:30 Divalproex Sodium (Depakote Sprinkles) 500 mg DAILY PO ; Start 05/15/18 at 09:00 ; Stop 05/15/18 at 10:54; Status DC Divalproex Sodium (Depakote Sprinkles) 750 mg QHS PO ; Start 05/15/18 at 21:00; Stop 05/15/18 at 21:00; Status DC Duloxetine HCl (Cymbalta) 60 mg DAILY PO ; Start 05/15/18 at 09:00; Stop at 10:54; Status DC Lacosamide (Vimpat) 200 mg BIDAFTMEAL PO ; Start 05/15/18 at 09:00; Stop at 09:00; Status DC Levetiracetam (Keppra) 750 mg BIDAFTMEAL PO ; Start 05/15/18 at 09:00; Stop at 09:00; Status DC Levothyroxine Sodium (Synthroid) 50 mcg DAILY06 PO ; Start 05/15/18 at 06:00; Stop 05/15/18 at 06:00; Status DC Magnesium Hydroxide (Milk Of Magnesia) 2,400 mg PRN QHS PRN PO CONSTIPATION; Start 05/15/18 at 05:30 Magnesium Oxide (Magnesium Oxide) 400 mg TID PO Last administered on 05/23/18at 19:38; Start 05/15/18 at 09:00 Pantoprazole Sodium (Protonix) 40 mg BIDBFRMEAL PO ; Start 05/15/18 at 07:30; Stop 05/15/18 at 07:41; Status DC Phenobarbital (Luminal) 64.8 mg QHS PO ; Start 05/15/18 at 21:00; Stop 05/15/18 at 21:00; Status DC Polyethylene Glycol (miraLAX) 17 gm PRN DAILY PRN PO CONSTIPATION; Start at 09:00; Stop 05/15/18 at 10:54; Status DC Quetiapine Fumarate (SEROquel) 12.5 mg QID PO ; Start 05/15/18 at 09:00; Stop at 10:54; Status DC Trazodone HCl (Desyrel) 50 mg PRN QHS PRN PO INSOMNIA, MAY REPEAT X1; Start at 05:30 Multi-Ingredient Ointment (Analgesic [place]) 1 radha PRN QID PRN TP MUSCLE PAIN; Start 05/15/18 at 05:45; Status UNV Al Hydroxide/Mg Hydroxide (Mylanta Plus Xs) 15 ml PRN AFTMEALHC PRN PO DYSPEPSIA; Start 05/15/18 at 05:45; Status UNV Magnesium Hydroxide (Milk Of Magnesia) 2,400 mg PRN QHS PRN PO CONSTIPATION; Start 05/15/18 at 05:45; Status UNV Levetiracetam (Keppra) 500 mg BID PO Last administered on 05/23/18at 19:38; Start 05/15/18 at 09:00 Levothyroxine Sodium (Synthroid) 75 mcg DAILY06 PO Last administered on at 06:18; Start 05/16/18 at 06:00 Pantoprazole Sodium (Protonix) 20 mg BIDBFRMEAL PO ; Start 05/15/18 at 16:30; Stop 05/15/18 at 16:30; Status DC Phenobarbital (Luminal) 64.8 mg BID PO Last administered on 05/23/18 19:39; Start 05/15/18 at 09:00 Cetirizine HCl (ZyrTEC) 10 mg HS PO Last administered on 05/23/18 19:38; Start 05/15/18 at 21:00 Multi-Ingred Cream/Lotion/Oil/ Oint (Hydrocerin) 1 radha PRN Q12HR PRN TP DRY SKIN / SCALING; Start 05/15/18 at 07:30 Guaifenesin (Guaifenesin) 100 mg PRN Q4HRS PRN PO COUGH; Start 05/15/18 at 07: 30; Stop 05/15/18 at 10:54; Status DC Ibuprofen (Motrin) 400 mg PRN Q4HRS PRN PO INFLAMMATION; Start 05/15/18 at 07: 30; Stop 05/15/18 at 11:10; Status DC Olanzapine (ZyPREXA) 5 mg BID PO Last administered on 05/23/18 19:38; Start at 09:00 Mirtazapine (Remeron) 15 mg QHS PO Last administered on 05/23/18 19:38; Start 05/15/18 at 21:00 Tramadol HCl (Ultram) 50 mg PRN Q8HRS PRN PO PAIN; Start 05/15/18 at 07:30 Tramadol HCl (Ultram) 50 mg BID PRN PO PAIN; Start 05/15/18 at 07:30; Stop at 10:54; Status DC Lacosamide (Vimpat) 200 mg BID PO Last administered on 05/23/18 19:38; Start at 09:00 Calcium Carbonate/ Glycine (Oscal) 500 mg BID PO ; Start 05/15/18 at 21:00; Stop 05/15/18 at 21:00; Status DC Guaifenesin (Robitussin) 100 mg PRN Q4HRS PRN PO COUGH; Start 05/15/18 at 10:30 Ibuprofen (Motrin) 400 mg PRN Q4HRS PRN PO PAIN; Start 05/15/18 at 10:30 Multi-Ingred Cream/Lotion/Oil/ Oint (Hydrocerin) 120 radha PRN Q12HR PRN TP dry skin; Start 05/15/18 at 10:30; Stop 05/15/18 at 11:07; Status DC Tramadol HCl (Ultram) 50 mg BID PRN PO PAIN; Start 05/15/18 at 10:30; Stop at 13:43; Status DC Tramadol HCl (Ultram) 50 mg PRN Q8HRS PRN PO PAIN; Start 05/15/18 at 10:30; Stop 05/15/18 at 11:25; Status DC Non-Formulary Medication (Cetirizine Hcl ) 10 mg QHS PO ; Start 05/15/18 at 21: 00; Stop 05/15/18 at 21:00; Status DC Non-Formulary Medication (Mirtazapine (Remeron)) 15 mg QHS PO ; Start 05/15/18 at 21:00; Stop 05/15/18 at 21:00; Status DC Non-Formulary Medication (Olanzapine ) 5 mg BID PO ; Start 05/15/18 at 21:00; Stop 05/15/18 at 21:00; Status DC Atorvastatin Calcium (Lipitor) 10 mg QHS PO Last administered on 05/23/18at 19:38 ; Start 05/15/18 at 21:00 Tramadol HCl (Ultram) 50 mg BID PO Last administered on 05/23/18at 19:39; Start 05/15/18 at 21:00 Pantoprazole Sodium (Protonix) 40 mg DAILYAC PO Last administered on 05/23/18at 08:35; Start 05/15/18 at 11:30 Buspirone HCl (Buspar) 5 mg BIDWBKFT/JIN PO Last administered on 05/19/18at 12:22 ; Start 05/16/18 at 17:00; Stop 05/19/18 at 16:26; Status DC Buspirone HCl (Buspar) 10 mg BIDWBKFT/JIN PO ; Start 05/20/18 at 08:00; Stop 05/20 at 08:29; Status DC Buspirone HCl (Buspar) 10 mg BIDWBKFT/JIN PO Last administered on 05/22/18at 12: 00; Start 05/20/18 at 08:30; Stop 05/22/18 at 21:00; Status DC Buspirone HCl (Buspar) 15 mg BIDACBL PO Last administered on 05/23/18at 11:58; Start 05/23/18 at 07:30; Stop 05/23/18 at 18:46; Status DC Buspirone HCl (Buspar) 15 mg 0900,1700 PO ; Start 05/24/18 at 09:00 Active Scripts Active Reported Tramadol Hcl (Tramadol HCl) 50 Mg Tablet 50 Mg PO BID PRN Tramadol Hcl (Tramadol HCl) 50 Mg Tablet 50 Mg PO PRN Q8HRS PRN Remeron (Mirtazapine) 15 Mg Tablet 15 Mg PO QHS Olanzapine 5 Mg Tablet 5 Mg PO BID Ibuprofen 400 Mg Tablet 400 Mg PO PRN Q4HRS PRN Guaifenesin 100 Mg/5 Ml Liquid 5 Ml PO PRN Q4HRS PRN Eucerin Creme (Mineral Oil/Petrolatum,White) 120 Gm Cream..g. 120 Gm TP PRN Q12HR PRN Cetirizine Hcl 10 Mg Tablet 10 Mg PO QHS Calcium Carbonate 500 Mg Tablet 500 Mg PO BID Levothyroxine Sodium 50 Mcg Tablet 75 Mcg PO DAILY06 Analgesic [place] (Methyl Salicylate/Menthol) 28 Gm Oint...g. 1 Radha TP PRN QID PRN Mag-Al Plus Xs Suspension (Mag Hydrox/Al Hydrox/Simeth) 30 Ml Oral.susp 15 Ml PO PRN AFTMEALHC PRN Vimpat (Lacosamide) 200 Mg Tablet 200 Mg PO BID Milk Of Magnesia (Magnesium Hydroxide) 2,400 Mg/10 Ml Oral.susp 2,400 Mg PO PRN QHS PRN Atorvastatin Calcium 10 Mg Tablet 10 Mg PO QHS Pantoprazole Sodium 40 Mg Tablet.dr 20 Mg PO BIDBFRMEAL Vitamin D3 (Cholecalciferol (Vitamin D3)) 1,000 Unit Tablet 1,000 Unit PO DAILY Phenobarbital 64.8 Mg Tablet 64.8 Mg PO BID Magnesium Oxide 400 Mg Tablet 400 Mg PO TID Tylenol (Acetaminophen) 325 Mg Tablet 650 Mg PO PRN Q6HRS PRN Keppra (Levetiracetam) 250 Mg Tablet 500 Mg PO BID Ferrous Sulfate 325 Mg Tablet 325 Mg PO BIDAFTMEAL Bisacodyl 10 Mg Supp.rect 10 Mg RC PRN DAILY PRN Felbamate 400 Mg Tablet 400 Mg PO TID I have reviewed the current psychotropics carefully including drug interactions. Risk benefit ratio favors no change other than as noted in my dictated progress note. Diagnosis: Problems: (1) Functional diarrhea (2) urinary tract infection (3) Left hip arthroplasty (4) Severe major depression with psychotic features (5) Adjustment disorder with depressed mood (6) Bipolar affective, mixed (7) Impulse control disorder (8) Dementia, vascular, with delusions (9) Dementia, vascular, with depression HARVEY QUIJANO MD May 23, 2018 22:28
--- NOTE | 2018-05-23 22:35 | NUR ---
Pt withdrawn to room at shift change, working on a crossword puzzle. Pt calm and cooperative. Pt compliant with medications and assessment.
--- NOTE | 2018-05-24 03:59 | PN ---
DATE: 05/22/2018 This late entry for 05/22/2018 covers elements not covered in my initial note. SUBJECTIVE: I met with the patient in the evening. The patient slept 6-1/4 hours previous night. Overall, she remains somewhat "negative" and "contrary" per nursing report. She takes her medications with hesitation, but ultimately does take them. She took a nap in the afternoon then did better. REVIEW OF SYSTEMS: Ambulation impaired, in wheelchair. No CV, , pulmonary, eye, ENT system symptoms on review. MENTAL STATUS EXAM: Oriented to herself and situation. Speech moderate latency, often responses monosyllabic. Abstraction fair, computation impaired, language function intact, attention span short. Mood and affect somewhat withdrawn. LABORATORY DATA: Reviewed. IMPRESSION: Unchanged from initial note. PLAN: No change from initial note. MAN Lusi QUIJANO MD DR: LOYD/eboni JOB#: [id number] / [id number]
[2018-05-24] MEDS: LEVOTHYROXINE 75 MCG TABLET PO SCH (04:53)
[2018-05-24 06:36] VITALS: BP 95/60
[2018-05-24] MEDS: OLANZapine 5 MG TABLET PO SCH ×2 (07:58→19:32)
[2018-05-24] MEDS: CALCIUM CARBONATE 500 MG TABLET PO SCH ×2 (07:58→17:10)
[2018-05-24] MEDS: FELBAMATE 400 MG TABLET PO SCH ×3 (07:58→19:33)
[2018-05-24] MEDS: PANTOPRAZOLE 40 MG TABLET. PO SCH (07:58)
[2018-05-24] MEDS: levETIRAcetam 500 MG TABLET PO SCH ×2 (07:58→19:32)
[2018-05-24] MEDS: CHOLECALCIFEROL (VITAMIN D3) 1,000 UNIT TABLET PO SCH (07:59)
[2018-05-24] MEDS: MAGNESIUM OXIDE 400 MG TABLET PO SCH ×3 (07:59→19:32)
[2018-05-24] MEDS: FERROUS SULFATE 325 MG TABLET. PO SCH ×2 (07:59→17:10)
[2018-05-24] MEDS: LACOSAMIDE 50 MG TABLET PO SCH ×2 (08:02→19:32)
[2018-05-24] MEDS: busPIRone 15 MG TABLET. PO SCH ×2 (08:03→17:10)
[2018-05-24] MEDS: traMADol 50 MG TABLET PO SCH ×2 (08:03→19:32)
[2018-05-24] MEDS: PHENobarbital 32.4 MG TABLET. PO SCH ×2 (08:03→19:32)
--- NOTE | 2018-05-24 08:45 | NUR ---
Behavior Intervention Response and Plan: BIRP Note: Behavior: Assumed Care of patient, patient located in Day Room at shift change. Patient exhibited the following behavior Wandering, Disorganized, Resistive. Brief assessment on rounds of vital signs, medication needs, lab studies, and pain. Treatment plan problems 1 & 2. Intervention: Patient assessed and the following interventions initiated safety checks 15 Minute Checks Cognitive Assessment , Head to toe Assessment , Medications. Response: After interactions and interventions patient responded in the following manner, Calm , Wandering ,Resistive. Continue to assess behaviors and condition will continue to monitor throughout the shift as needed. Patient educated on ADL's, and hand hygiene. Plan: Continue to monitor Master Treatment Plan for patient's progress toward short term goals of Medication Compliance, No harm To self/ others, angiography nurse goals to return to previous living setting vs placement. Continue to assess patient for changes in above assessment. Monitor for medication needs, pain, and safety concerns. Hourly rounding performed to ensure safe environment.
[2018-05-24 16:38] VITALS: BP 90/60
[2018-05-24] MEDS: MIRTAZAPINE 15 MG TABLET PO SCH (19:32)
[2018-05-24] MEDS: ATORVASTATIN CALCIUM 10 MG TABLET. PO SCH (19:32)
[2018-05-24] MEDS: CETIRIZINE HCL 10 MG TABLET PO SCH (19:32)
[2018-05-24 21:15] VITALS: BP 95/65
--- NOTE | 2018-05-24 21:48 | PDOC ---
Exam Note: David Note: Please also refer to the separate dictated note~for this date of service dictated separately.~Patient seen individually. Discussed the patient with Nursing staff reviewed the chart.~Reviewed interim history and current functioning. Reviewed vital signs,~Labs/ Radiology~and current medications noted below. Continue current treatment with the changes noted in the dictated addendum note Assessment: Vital Signs: Vital Signs Date Time Temp Pulse Resp B/P (MAP) Pulse Ox O2 Delivery O2 Flow Rate FiO2 05/24/18 21:15 98.1 81 16 95/65 (75) 94 Room Air I&O Intake and Output 05/24/18 07:01 Intake Total 840 ml Balance 840 ml Intake Oral 840 ml # Voids 2 Current Medications: Meds: Current Medications Haloperidol Lactate (Haldol) 5 mg 1X ONCE IM Last administered on 05/15/18at 00 :47; Start 05/15/18 at 01:00; Stop 05/15/18 at 01:01; Status DC Diphenhydramine HCl (Benadryl) 50 mg 1X ONCE IM Last administered on at 00:47; Start 05/15/18 at 01:00; Stop 05/15/18 at 01:01; Status DC Lorazepam (Ativan) 2 mg 1X ONCE IM Last administered on 05/15/18at 00:46; Start 05/15/18 at 00:30; Stop 05/15/18 at 00:51; Status DC Acetaminophen (Tylenol) 650 mg PRN Q4HRS PRN PO FEVER; Start 05/15/18 at 02:15 ; Stop 05/15/18 at 05:14; Status DC Acetaminophen (Tylenol) 650 mg PRN Q6HRS PRN PO PAIN / TEMP; Start 05/15/18 at 05:15 Calcium Carbonate/ Glycine (Oscal) 500 mg BIDWMEALS PO Last administered on 05/24at 17:10; Start 05/15/18 at 08:00 Vitamin D (Vitamin D3) 1,000 unit DAILY PO Last administered on 05/24/18at 07:59 ; Start 05/15/18 at 09:00 Felbamate (Felbatol) 400 mg TID PO Last administered on 05/24/18at 19:33; Start 05/15/18 at 09:00 Ferrous Sulfate (Feosol) 325 mg BIDAFTMEAL PO Last administered on 05/24/18at 17: 10; Start 05/15/18 at 09:00 Al Hydroxide/Mg Hydroxide (Mylanta Plus Xs) 15 ml PRN AFTMEALHC PRN PO DYSPEPSIA; Start 05/15/18 at 05:15 Multi-Ingredient Ointment (Analgesic [place]) 1 radha PRN QID PRN TP MUSCLE PAIN; Start 05/15/18 at 05:15 Senna/Docusate Sodium (Senna Plus) 1 tab PRN BID PRN PO CONSTIPATION; Start at 05:15; Stop 05/15/18 at 10:54; Status DC Tramadol HCl (Ultram) 50 mg PRN Q6HRS PRN PO PAIN; Start 05/15/18 at 05:15; Stop 05/15/18 at 10:54; Status DC Atorvastatin Calcium (Lipitor) 5 mg QHS PO ; Start 05/15/18 at 21:00; Stop 05/15 at 21:00; Status DC Bisacodyl (Dulcolax Supp) 10 mg PRN DAILY PRN [place] CONSTIPATION; Start 05/15/18 at 05:30 Divalproex Sodium (Depakote Sprinkles) 500 mg DAILY PO ; Start 05/15/18 at 09:00 ; Stop 05/15/18 at 10:54; Status DC Divalproex Sodium (Depakote Sprinkles) 750 mg QHS PO ; Start 05/15/18 at 21:00; Stop 05/15/18 at 21:00; Status DC Duloxetine HCl (Cymbalta) 60 mg DAILY PO ; Start 05/15/18 at 09:00; Stop at 10:54; Status DC Lacosamide (Vimpat) 200 mg BIDAFTMEAL PO ; Start 05/15/18 at 09:00; Stop at 09:00; Status DC Levetiracetam (Keppra) 750 mg BIDAFTMEAL PO ; Start 05/15/18 at 09:00; Stop at 09:00; Status DC Levothyroxine Sodium (Synthroid) 50 mcg DAILY06 PO ; Start 05/15/18 at 06:00; Stop 05/15/18 at 06:00; Status DC Magnesium Hydroxide (Milk Of Magnesia) 2,400 mg PRN QHS PRN PO CONSTIPATION; Start 05/15/18 at 05:30 Magnesium Oxide (Magnesium Oxide) 400 mg TID PO Last administered on 05/24/18at 19:32; Start 05/15/18 at 09:00 Pantoprazole Sodium (Protonix) 40 mg BIDBFRMEAL PO ; Start 05/15/18 at 07:30; Stop 05/15/18 at 07:41; Status DC Phenobarbital (Luminal) 64.8 mg QHS PO ; Start 05/15/18 at 21:00; Stop 05/15/18 at 21:00; Status DC Polyethylene Glycol (miraLAX) 17 gm PRN DAILY PRN PO CONSTIPATION; Start at 09:00; Stop 05/15/18 at 10:54; Status DC Quetiapine Fumarate (SEROquel) 12.5 mg QID PO ; Start 05/15/18 at 09:00; Stop at 10:54; Status DC Trazodone HCl (Desyrel) 50 mg PRN QHS PRN PO INSOMNIA, MAY REPEAT X1; Start at 05:30 Multi-Ingredient Ointment (Analgesic [place]) 1 radha PRN QID PRN TP MUSCLE PAIN; Start 05/15/18 at 05:45; Status UNV Al Hydroxide/Mg Hydroxide (Mylanta Plus Xs) 15 ml PRN AFTMEALHC PRN PO DYSPEPSIA; Start 05/15/18 at 05:45; Status UNV Magnesium Hydroxide (Milk Of Magnesia) 2,400 mg PRN QHS PRN PO CONSTIPATION; Start 05/15/18 at 05:45; Status UNV Levetiracetam (Keppra) 500 mg BID PO Last administered on 05/24/18at 19:32; Start 05/15/18 at 09:00 Levothyroxine Sodium (Synthroid) 75 mcg DAILY06 PO Last administered on at 04:53; Start 05/16/18 at 06:00 Pantoprazole Sodium (Protonix) 20 mg BIDBFRMEAL PO ; Start 05/15/18 at 16:30; Stop 05/15/18 at 16:30; Status DC Phenobarbital (Luminal) 64.8 mg BID PO Last administered on 05/24/18 19:32; Start 05/15/18 at 09:00 Cetirizine HCl (ZyrTEC) 10 mg HS PO Last administered on 05/24/18 19:32; Start 05/15/18 at 21:00 Multi-Ingred Cream/Lotion/Oil/ Oint (Hydrocerin) 1 radha PRN Q12HR PRN TP DRY SKIN / SCALING; Start 05/15/18 at 07:30 Guaifenesin (Guaifenesin) 100 mg PRN Q4HRS PRN PO COUGH; Start 05/15/18 at 07: 30; Stop 05/15/18 at 10:54; Status DC Ibuprofen (Motrin) 400 mg PRN Q4HRS PRN PO INFLAMMATION; Start 05/15/18 at 07: 30; Stop 05/15/18 at 11:10; Status DC Olanzapine (ZyPREXA) 5 mg BID PO Last administered on 05/24/18 19:32; Start at 09:00 Mirtazapine (Remeron) 15 mg QHS PO Last administered on 05/24/18 19:32; Start 05/15/18 at 21:00 Tramadol HCl (Ultram) 50 mg PRN Q8HRS PRN PO PAIN; Start 05/15/18 at 07:30 Tramadol HCl (Ultram) 50 mg BID PRN PO PAIN; Start 05/15/18 at 07:30; Stop at 10:54; Status DC Lacosamide (Vimpat) 200 mg BID PO Last administered on 05/24/18 19:32; Start at 09:00 Calcium Carbonate/ Glycine (Oscal) 500 mg BID PO ; Start 05/15/18 at 21:00; Stop 05/15/18 at 21:00; Status DC Guaifenesin (Robitussin) 100 mg PRN Q4HRS PRN PO COUGH; Start 05/15/18 at 10:30 Ibuprofen (Motrin) 400 mg PRN Q4HRS PRN PO PAIN; Start 05/15/18 at 10:30 Multi-Ingred Cream/Lotion/Oil/ Oint (Hydrocerin) 120 radha PRN Q12HR PRN TP dry skin; Start 05/15/18 at 10:30; Stop 05/15/18 at 11:07; Status DC Tramadol HCl (Ultram) 50 mg BID PRN PO PAIN; Start 05/15/18 at 10:30; Stop at 13:43; Status DC Tramadol HCl (Ultram) 50 mg PRN Q8HRS PRN PO PAIN; Start 05/15/18 at 10:30; Stop 05/15/18 at 11:25; Status DC Non-Formulary Medication (Cetirizine Hcl ) 10 mg QHS PO ; Start 05/15/18 at 21: 00; Stop 05/15/18 at 21:00; Status DC Non-Formulary Medication (Mirtazapine (Remeron)) 15 mg QHS PO ; Start 05/15/18 at 21:00; Stop 05/15/18 at 21:00; Status DC Non-Formulary Medication (Olanzapine ) 5 mg BID PO ; Start 05/15/18 at 21:00; Stop 05/15/18 at 21:00; Status DC Atorvastatin Calcium (Lipitor) 10 mg QHS PO Last administered on 05/24/18at 19:32 ; Start 05/15/18 at 21:00 Tramadol HCl (Ultram) 50 mg BID PO Last administered on 05/24/18at 19:32; Start 05/15/18 at 21:00 Pantoprazole Sodium (Protonix) 40 mg DAILYAC PO Last administered on 05/24/18at 07:58; Start 05/15/18 at 11:30 Buspirone HCl (Buspar) 5 mg BIDWBKFT/JIN PO Last administered on 05/19/18at 12:22 ; Start 05/16/18 at 17:00; Stop 05/19/18 at 16:26; Status DC Buspirone HCl (Buspar) 10 mg BIDWBKFT/JIN PO ; Start 05/20/18 at 08:00; Stop 05/20 at 08:29; Status DC Buspirone HCl (Buspar) 10 mg BIDWBKFT/JIN PO Last administered on 05/22/18at 12: 00; Start 05/20/18 at 08:30; Stop 05/22/18 at 21:00; Status DC Buspirone HCl (Buspar) 15 mg BIDACBL PO Last administered on 05/23/18at 11:58; Start 05/23/18 at 07:30; Stop 05/23/18 at 18:46; Status DC Buspirone HCl (Buspar) 15 mg 0900,1700 PO Last administered on 05/24/18at 17:10; Start 05/24/18 at 09:00 Active Scripts Active Reported Tramadol Hcl (Tramadol HCl) 50 Mg Tablet 50 Mg PO BID PRN Tramadol Hcl (Tramadol HCl) 50 Mg Tablet 50 Mg PO PRN Q8HRS PRN Remeron (Mirtazapine) 15 Mg Tablet 15 Mg PO QHS Olanzapine 5 Mg Tablet 5 Mg PO BID Ibuprofen 400 Mg Tablet 400 Mg PO PRN Q4HRS PRN Guaifenesin 100 Mg/5 Ml Liquid 5 Ml PO PRN Q4HRS PRN Eucerin Creme (Mineral Oil/Petrolatum,White) 120 Gm Cream..g. 120 Gm TP PRN Q12HR PRN Cetirizine Hcl 10 Mg Tablet 10 Mg PO QHS Calcium Carbonate 500 Mg Tablet 500 Mg PO BID Levothyroxine Sodium 50 Mcg Tablet 75 Mcg PO DAILY06 Analgesic [place] (Methyl Salicylate/Menthol) 28 Gm Oint...g. 1 Radha TP PRN QID PRN Mag-Al Plus Xs Suspension (Mag Hydrox/Al Hydrox/Simeth) 30 Ml Oral.susp 15 Ml PO PRN AFTMEALHC PRN Vimpat (Lacosamide) 200 Mg Tablet 200 Mg PO BID Milk Of Magnesia (Magnesium Hydroxide) 2,400 Mg/10 Ml Oral.susp 2,400 Mg PO PRN QHS PRN Atorvastatin Calcium 10 Mg Tablet 10 Mg PO QHS Pantoprazole Sodium 40 Mg Tablet.dr 20 Mg PO BIDBFRMEAL Vitamin D3 (Cholecalciferol (Vitamin D3)) 1,000 Unit Tablet 1,000 Unit PO DAILY Phenobarbital 64.8 Mg Tablet 64.8 Mg PO BID Magnesium Oxide 400 Mg Tablet 400 Mg PO TID Tylenol (Acetaminophen) 325 Mg Tablet 650 Mg PO PRN Q6HRS PRN Keppra (Levetiracetam) 250 Mg Tablet 500 Mg PO BID Ferrous Sulfate 325 Mg Tablet 325 Mg PO BIDAFTMEAL Bisacodyl 10 Mg Supp.rect 10 Mg RC PRN DAILY PRN Felbamate 400 Mg Tablet 400 Mg PO TID I have reviewed the current psychotropics carefully including drug interactions. Risk benefit ratio favors no change other than as noted in my dictated progress note. Diagnosis: Problems: (1) Functional diarrhea (2) urinary tract infection (3) Left hip arthroplasty (4) Severe major depression with psychotic features (5) Adjustment disorder with depressed mood (6) Bipolar affective, mixed (7) Impulse control disorder (8) Dementia, vascular, with delusions (9) Dementia, vascular, with depression HARVEY QUIJANO MD May 24, 2018 21:48
--- NOTE | 2018-05-24 22:24 | NUR ---
Pt sitting quietly in the day room at shift change, working on crossword puzzles. Pt calm, cooperative, withdrawn to self. Pt compliant with medications and assessment this evening.
--- NOTE | 2018-05-24 23:53 | PN ---
DATE: 05/23/2018 PSYCHIATRIC PROGRESS NOTE This late entry, 05/23/2018, covers elements not covered in my initial note. SUBJECTIVE: I met with the patient in the evening. The patient slept 6-1/4 hours previous night. Overall, she remains somewhat withdrawn, works on her crossword puzzles, at times refuses her medications because she does not feel she needs them. REVIEW OF SYSTEMS: Ambulation impaired, in wheelchair. No CV, , pulmonary, eye, ENT system symptoms on review. Reliability poor. MENTAL STATUS EXAM: Oriented to herself and situation. Speech moderate latency, low in rate and rhythm, low in volume. Abstraction fair, computation impaired, language function intact, attention span short. Mood and affect somewhat withdrawn, less psychotic. LABORATORY DATA: Reviewed. IMPRESSION: Unchanged from initial note. PLAN: Increase BuSpar from 10 mg b.i.d. to 15 mg b.i.d. Rest unchanged from initial note. HARVEY QUIJANO MD DR: LOYD/eboni JOB#: [id number] / [id number]
[2018-05-25] MEDS: LEVOTHYROXINE 75 MCG TABLET PO SCH (05:08)
[2018-05-25 06:33] VITALS: BP 106/67
[2018-05-25] MEDS: PANTOPRAZOLE 40 MG TABLET. PO SCH (07:47)
[2018-05-25] MEDS: MAGNESIUM OXIDE 400 MG TABLET PO SCH ×3 (07:47→19:38)
[2018-05-25] MEDS: busPIRone 15 MG TABLET. PO SCH ×2 (07:47→16:59)
[2018-05-25] MEDS: CHOLECALCIFEROL (VITAMIN D3) 1,000 UNIT TABLET PO SCH (07:48)
[2018-05-25] MEDS: levETIRAcetam 500 MG TABLET PO SCH ×2 (07:48→19:38)
[2018-05-25] MEDS: OLANZapine 5 MG TABLET PO SCH ×2 (07:48→19:39)
[2018-05-25] MEDS: FERROUS SULFATE 325 MG TABLET. PO SCH ×2 (07:48→17:00)
[2018-05-25] MEDS: CALCIUM CARBONATE 500 MG TABLET PO SCH ×2 (07:48→16:59)
[2018-05-25] MEDS: FELBAMATE 400 MG TABLET PO SCH ×3 (08:09→19:39)
[2018-05-25] MEDS: traMADol 50 MG TABLET PO SCH ×2 (08:10→19:38)
[2018-05-25] MEDS: LACOSAMIDE 50 MG TABLET PO SCH ×2 (08:12→19:39)
[2018-05-25] MEDS: PHENobarbital 32.4 MG TABLET. PO SCH ×2 (08:12→19:38)
--- NOTE | 2018-05-25 14:11 | NUR ---
Patient calm and withdrawn when she is out in the day room or dining room. Pt is compliant with meds and assessment, but maintains a perplexed facial expression. Pt stated "I don't like when you guys do this" when I was auscultating her chest and back. Patient in her room resting when given her 1400 meds. Patient was awake and sat up to take her medications willingly. Patient quietly resting in her room.
[2018-05-25 16:51] VITALS: BP 99/67
--- NOTE | 2018-05-25 17:10 | NUR ---
Behavior Intervention Response and Plan: BIRP Note: Behavior: Assumed Care of patient, patient located in Dining Room at shift change. Patient exhibited the following behavior Calm, Disorganized, Cooperative. Brief assessment on rounds of vital signs, medication needs, lab studies, and pain. Treatment plan problems alteration in mood and fall risk. Intervention: Patient assessed and the following interventions initiated safety checks 15 Minute Checks Cognitive Assessment , Head to toe Assessment , Medications. Response: After interactions and interventions patient responded in the following manner, Calm , Withdrawn ,Cooperative. Continue to assess behaviors and condition will continue to monitor throughout the shift as needed. Patient educated on ADL's, and hand hygiene. Plan: Continue to monitor Master Treatment Plan for patient's progress toward short term goals of Decreased Agitation, Medication Compliance, nursing home goals to return to previous living setting vs placement. Continue to assess patient for changes in above assessment. Monitor for medication needs, pain, and safety concerns. Hourly rounding performed to ensure safe environment.
[2018-05-25] MEDS: MIRTAZAPINE 15 MG TABLET PO SCH (19:38)
[2018-05-25] MEDS: ATORVASTATIN CALCIUM 10 MG TABLET. PO SCH (19:38)
[2018-05-25] MEDS: CETIRIZINE HCL 10 MG TABLET PO SCH (19:38)
--- NOTE | 2018-05-25 22:39 | PDOC ---
Exam Note: David Note: Please also refer to the separate dictated note~for this date of service dictated separately.~Patient seen individually. Discussed the patient with Nursing staff reviewed the chart.~Reviewed interim history and current functioning. Reviewed vital signs,~Labs/ Radiology~and current medications noted below. Continue current treatment with the changes noted in the dictated addendum note Assessment: Vital Signs: Vital Signs Date Time Temp Pulse Resp B/P (MAP) Pulse Ox O2 Delivery O2 Flow Rate FiO2 05/25/18 16:51 98.8 90 18 99/67 (78) 95 05/25/18 06:33 Room Air I&O Intake and Output 05/25/18 07:01 Intake Total 1005 ml Balance 1005 ml Intake Oral 1005 ml # Voids 1 Current Medications: Meds: Current Medications Haloperidol Lactate (Haldol) 5 mg 1X ONCE IM Last administered on 05/15/18at 00 :47; Start 05/15/18 at 01:00; Stop 05/15/18 at 01:01; Status DC Diphenhydramine HCl (Benadryl) 50 mg 1X ONCE IM Last administered on at 00:47; Start 05/15/18 at 01:00; Stop 05/15/18 at 01:01; Status DC Lorazepam (Ativan) 2 mg 1X ONCE IM Last administered on 05/15/18at 00:46; Start 05/15/18 at 00:30; Stop 05/15/18 at 00:51; Status DC Acetaminophen (Tylenol) 650 mg PRN Q4HRS PRN PO FEVER; Start 05/15/18 at 02:15 ; Stop 05/15/18 at 05:14; Status DC Acetaminophen (Tylenol) 650 mg PRN Q6HRS PRN PO PAIN / TEMP Last administered on 05/25/18 16:45; Start 05/15/18 at 05:15 Calcium Carbonate/ Glycine (Oscal) 500 mg BIDWMEALS PO Last administered on 16:59; Start 05/15/18 at 08:00 Vitamin D (Vitamin D3) 1,000 unit DAILY PO Last administered on 05/25/18 07:48 ; Start 05/15/18 at 09:00 Felbamate (Felbatol) 400 mg TID PO Last administered on 2/10/19at 19:39; Start 05/15/18 at 09:00 Ferrous Sulfate (Feosol) 325 mg BIDAFTMEAL PO Last administered on 05/25/18at 17 :00; Start 05/15/18 at 09:00 Al Hydroxide/Mg Hydroxide (Mylanta Plus Xs) 15 ml PRN AFTMEALHC PRN PO DYSPEPSIA; Start 05/15/18 at 05:15 Multi-Ingredient Ointment (Analgesic [place]) 1 radha PRN QID PRN TP MUSCLE PAIN; Start 05/15/18 at 05:15 Senna/Docusate Sodium (Senna Plus) 1 tab PRN BID PRN PO CONSTIPATION; Start at 05:15; Stop 05/15/18 at 10:54; Status DC Tramadol HCl (Ultram) 50 mg PRN Q6HRS PRN PO PAIN; Start 05/15/18 at 05:15; Stop 05/15/18 at 10:54; Status DC Atorvastatin Calcium (Lipitor) 5 mg QHS PO ; Start 05/15/18 at 21:00; Stop 05/15 at 21:00; Status DC Bisacodyl (Dulcolax Supp) 10 mg PRN DAILY PRN [place] CONSTIPATION; Start 05/15/18 at 05:30 Divalproex Sodium (Depakote Sprinkles) 500 mg DAILY PO ; Start 05/15/18 at 09:00 ; Stop 05/15/18 at 10:54; Status DC Divalproex Sodium (Depakote Sprinkles) 750 mg QHS PO ; Start 05/15/18 at 21:00; Stop 05/15/18 at 21:00; Status DC Duloxetine HCl (Cymbalta) 60 mg DAILY PO ; Start 05/15/18 at 09:00; Stop at 10:54; Status DC Lacosamide (Vimpat) 200 mg BIDAFTMEAL PO ; Start 05/15/18 at 09:00; Stop at 09:00; Status DC Levetiracetam (Keppra) 750 mg BIDAFTMEAL PO ; Start 05/15/18 at 09:00; Stop at 09:00; Status DC Levothyroxine Sodium (Synthroid) 50 mcg DAILY06 PO ; Start 05/15/18 at 06:00; Stop 05/15/18 at 06:00; Status DC Magnesium Hydroxide (Milk Of Magnesia) 2,400 mg PRN QHS PRN PO CONSTIPATION; Start 05/15/18 at 05:30 Magnesium Oxide (Magnesium Oxide) 400 mg TID PO Last administered on 05/25/18at 19:38; Start 05/15/18 at 09:00 Pantoprazole Sodium (Protonix) 40 mg BIDBFRMEAL PO ; Start 05/15/18 at 07:30; Stop 05/15/18 at 07:41; Status DC Phenobarbital (Luminal) 64.8 mg QHS PO ; Start 05/15/18 at 21:00; Stop 05/15/18 at 21:00; Status DC Polyethylene Glycol (miraLAX) 17 gm PRN DAILY PRN PO CONSTIPATION; Start at 09:00; Stop 05/15/18 at 10:54; Status DC Quetiapine Fumarate (SEROquel) 12.5 mg QID PO ; Start 05/15/18 at 09:00; Stop at 10:54; Status DC Trazodone HCl (Desyrel) 50 mg PRN QHS PRN PO INSOMNIA, MAY REPEAT X1; Start at 05:30 Multi-Ingredient Ointment (Analgesic [place]) 1 radha PRN QID PRN TP MUSCLE PAIN; Start 05/15/18 at 05:45; Status UNV Al Hydroxide/Mg Hydroxide (Mylanta Plus Xs) 15 ml PRN AFTMEALHC PRN PO DYSPEPSIA; Start 05/15/18 at 05:45; Status UNV Magnesium Hydroxide (Milk Of Magnesia) 2,400 mg PRN QHS PRN PO CONSTIPATION; Start 05/15/18 at 05:45; Status UNV Levetiracetam (Keppra) 500 mg BID PO Last administered on 05/25/18at 19:38; Start 05/15/18 at 09:00 Levothyroxine Sodium (Synthroid) 75 mcg DAILY06 PO Last administered on at 05:08; Start 05/16/18 at 06:00 Pantoprazole Sodium (Protonix) 20 mg BIDBFRMEAL PO ; Start 05/15/18 at 16:30; Stop 05/15/18 at 16:30; Status DC Phenobarbital (Luminal) 64.8 mg BID PO Last administered on 05/25/18at 19:38; Start 05/15/18 at 09:00 Cetirizine HCl (ZyrTEC) 10 mg HS PO Last administered on 05/25/18at 19:38; Start 05/15/18 at 21:00 Multi-Ingred Cream/Lotion/Oil/ Oint (Hydrocerin) 1 radha PRN Q12HR PRN TP DRY SKIN / SCALING; Start 05/15/18 at 07:30 Guaifenesin (Guaifenesin) 100 mg PRN Q4HRS PRN PO COUGH; Start 05/15/18 at 07: 30; Stop 05/15/18 at 10:54; Status DC Ibuprofen (Motrin) 400 mg PRN Q4HRS PRN PO INFLAMMATION; Start 05/15/18 at 07: 30; Stop 05/15/18 at 11:10; Status DC Olanzapine (ZyPREXA) 5 mg BID PO Last administered on 05/25/18at 19:39; Start at 09:00 Mirtazapine (Remeron) 15 mg QHS PO Last administered on 05/25/18 19:38; Start 05/15/18 at 21:00 Tramadol HCl (Ultram) 50 mg PRN Q8HRS PRN PO PAIN; Start 05/15/18 at 07:30 Tramadol HCl (Ultram) 50 mg BID PRN PO PAIN; Start 05/15/18 at 07:30; Stop at 10:54; Status DC Lacosamide (Vimpat) 200 mg BID PO Last administered on 05/25/18at 19:39; Start 05/15/18 at 09:00 Calcium Carbonate/ Glycine (Oscal) 500 mg BID PO ; Start 05/15/18 at 21:00; Stop 05/15/18 at 21:00; Status DC Guaifenesin (Robitussin) 100 mg PRN Q4HRS PRN PO COUGH; Start 05/15/18 at 10:30 Ibuprofen (Motrin) 400 mg PRN Q4HRS PRN PO PAIN; Start 05/15/18 at 10:30 Multi-Ingred Cream/Lotion/Oil/ Oint (Hydrocerin) 120 radha PRN Q12HR PRN TP dry skin; Start 05/15/18 at 10:30; Stop 05/15/18 at 11:07; Status DC Tramadol HCl (Ultram) 50 mg BID PRN PO PAIN; Start 05/15/18 at 10:30; Stop at 13:43; Status DC Tramadol HCl (Ultram) 50 mg PRN Q8HRS PRN PO PAIN; Start 05/15/18 at 10:30; Stop 05/15/18 at 11:25; Status DC Non-Formulary Medication (Cetirizine Hcl ) 10 mg QHS PO ; Start 05/15/18 at 21: 00; Stop 05/15/18 at 21:00; Status DC Non-Formulary Medication (Mirtazapine (Remeron)) 15 mg QHS PO ; Start 05/15/18 at 21:00; Stop 05/15/18 at 21:00; Status DC Non-Formulary Medication (Olanzapine ) 5 mg BID PO ; Start 05/15/18 at 21:00; Stop 05/15/18 at 21:00; Status DC Atorvastatin Calcium (Lipitor) 10 mg QHS PO Last administered on 05/25/18at 19: 38; Start 05/15/18 at 21:00 Tramadol HCl (Ultram) 50 mg BID PO Last administered on 05/25/18at 19:38; Start 05/15/18 at 21:00 Pantoprazole Sodium (Protonix) 40 mg DAILYAC PO Last administered on 05/25/18at 07:47; Start 05/15/18 at 11:30 Buspirone HCl (Buspar) 5 mg BIDWBKFT/JIN PO Last administered on 05/19/18at 12:22 ; Start 05/16/18 at 17:00; Stop 05/19/18 at 16:26; Status DC Buspirone HCl (Buspar) 10 mg BIDWBKFT/JIN PO ; Start 05/20/18 at 08:00; Stop 05/20 at 08:29; Status DC Buspirone HCl (Buspar) 10 mg BIDWBKFT/JIN PO Last administered on 05/22/18at 12: 00; Start 05/20/18 at 08:30; Stop 05/22/18 at 21:00; Status DC Buspirone HCl (Buspar) 15 mg BIDACBL PO Last administered on 05/23/18at 11:58; Start 05/23/18 at 07:30; Stop 05/23/18 at 18:46; Status DC Buspirone HCl (Buspar) 15 mg 0900,1700 PO Last administered on 05/25/18at 16:59 ; Start 05/24/18 at 09:00 Active Scripts Active Reported Tramadol Hcl (Tramadol HCl) 50 Mg Tablet 50 Mg PO BID PRN Tramadol Hcl (Tramadol HCl) 50 Mg Tablet 50 Mg PO PRN Q8HRS PRN Remeron (Mirtazapine) 15 Mg Tablet 15 Mg PO QHS Olanzapine 5 Mg Tablet 5 Mg PO BID Ibuprofen 400 Mg Tablet 400 Mg PO PRN Q4HRS PRN Guaifenesin 100 Mg/5 Ml Liquid 5 Ml PO PRN Q4HRS PRN Eucerin Creme (Mineral Oil/Petrolatum,White) 120 Gm Cream..g. 120 Gm TP PRN Q12HR PRN Cetirizine Hcl 10 Mg Tablet 10 Mg PO QHS Calcium Carbonate 500 Mg Tablet 500 Mg PO BID Levothyroxine Sodium 50 Mcg Tablet 75 Mcg PO DAILY06 Analgesic [place] (Methyl Salicylate/Menthol) 28 Gm Oint...g. 1 Radha TP PRN QID PRN Mag-Al Plus Xs Suspension (Mag Hydrox/Al Hydrox/Simeth) 30 Ml Oral.susp 15 Ml PO PRN AFTMEALHC PRN Vimpat (Lacosamide) 200 Mg Tablet 200 Mg PO BID Milk Of Magnesia (Magnesium Hydroxide) 2,400 Mg/10 Ml Oral.susp 2,400 Mg PO PRN QHS PRN Atorvastatin Calcium 10 Mg Tablet 10 Mg PO QHS Pantoprazole Sodium 40 Mg Tablet.dr 20 Mg PO BIDBFRMEAL Vitamin D3 (Cholecalciferol (Vitamin D3)) 1,000 Unit Tablet 1,000 Unit PO DAILY Phenobarbital 64.8 Mg Tablet 64.8 Mg PO BID Magnesium Oxide 400 Mg Tablet 400 Mg PO TID Tylenol (Acetaminophen) 325 Mg Tablet 650 Mg PO PRN Q6HRS PRN Keppra (Levetiracetam) 250 Mg Tablet 500 Mg PO BID Ferrous Sulfate 325 Mg Tablet 325 Mg PO BIDAFTMEAL Bisacodyl 10 Mg Supp.rect 10 Mg RC PRN DAILY PRN Felbamate 400 Mg Tablet 400 Mg PO TID I have reviewed the current psychotropics carefully including drug interactions. Risk benefit ratio favors no change other than as noted in my dictated progress note. Diagnosis: Problems: (1) Functional diarrhea (2) urinary tract infection (3) Left hip arthroplasty (4) Severe major depression with psychotic features (5) Adjustment disorder with depressed mood (6) Bipolar affective, mixed (7) Impulse control disorder (8) Dementia, vascular, with delusions (9) Dementia, vascular, with depression HARVEY QUIJANO MD May 25, 2018 22:39
--- NOTE | 2018-05-25 22:39 | NUR ---
Patient sitting by window in day room away from other patients. Compliant with medications taken whole. Not interactive, prefers to keep to herself. Patient has a negative attitude but not verbally aggressive. Patient stated she does not like tv and would like it turned off. Nurse told her others were watching it, she requested ice cream for a snack then went to bed.
--- NOTE | 2018-05-26 01:05 | PN ---
DATE: 05/24/2018 PSYCHIATRIC PROGRESS NOTE This late entry 05/24/2018 covers elements not covered in my initial note. SUBJECTIVE: I met with the patient in the evening. The patient slept 7-3/4 hours previous night. She has been generally cooperative at times, resistive with medications, working on a puzzle as I met with her. REVIEW OF SYSTEMS: Ambulation impaired, in wheelchair. No CV, , pulmonary, eye, ENT system symptoms on review. MENTAL STATUS EXAM: Oriented to herself and situation. Speech has some latency, low in rate and rhythm, low in volume, often responses monosyllabic. Abstraction fair, computation impaired, language function intact, attention span short. Mood and affect somewhat withdrawn. LABORATORY DATA: Reviewed. IMPRESSION: Unchanged from initial note. PLAN: No change from initial note. MAN Luis QUIJANO MD DR: LOYD/eboni JOB#: [id number] / [id number]
[2018-05-26] MEDS: LEVOTHYROXINE 75 MCG TABLET PO SCH (05:42)
[2018-05-26 05:57] VITALS: BP 105/68
[2018-05-26] MEDS: MAGNESIUM OXIDE 400 MG TABLET PO SCH ×3 (08:28→19:11)
[2018-05-26] MEDS: levETIRAcetam 500 MG TABLET PO SCH ×2 (08:28→19:11)
[2018-05-26] MEDS: OLANZapine 5 MG TABLET PO SCH ×2 (08:28→19:11)
[2018-05-26] MEDS: LACOSAMIDE 50 MG TABLET PO SCH ×2 (08:29→19:11)
[2018-05-26] MEDS: busPIRone 15 MG TABLET. PO SCH ×2 (08:29→16:42)
[2018-05-26] MEDS: PHENobarbital 32.4 MG TABLET. PO SCH ×2 (08:29→19:11)
[2018-05-26] MEDS: PANTOPRAZOLE 40 MG TABLET. PO SCH (08:29)
[2018-05-26] MEDS: FELBAMATE 400 MG TABLET PO SCH ×3 (08:29→19:13)
[2018-05-26] MEDS: CHOLECALCIFEROL (VITAMIN D3) 1,000 UNIT TABLET PO SCH (08:30)
[2018-05-26] MEDS: CALCIUM CARBONATE 500 MG TABLET PO SCH ×2 (08:33→16:42)
[2018-05-26] MEDS: traMADol 50 MG TABLET PO SCH ×2 (08:33→19:13)
[2018-05-26] MEDS: FERROUS SULFATE 325 MG TABLET. PO SCH ×2 (08:33→16:42)
[2018-05-26] MEDS: IBUPROFEN 400 MG TABLET. PO PRN (14:54)
[2018-05-26 16:15] VITALS: BP 100/67
[2018-05-26] MEDS: MIRTAZAPINE 15 MG TABLET PO SCH (19:11)
[2018-05-26] MEDS: ATORVASTATIN CALCIUM 10 MG TABLET. PO SCH (19:11)
[2018-05-26] MEDS: CETIRIZINE HCL 10 MG TABLET PO SCH (19:11)
--- NOTE | 2018-05-26 20:26 | NUR ---
Pt sitting up in w/c in the day room at shift change. Pt irritable, sitting alone in the corner. Pt cooperative and compliant with medicat Addendum: 05/26/18 at 2034 by LUZMA ANDERSEN RN medications and assessment, but continues to make statements such as, "I don't like that", and "no, I don't".
--- NOTE | 2018-05-27 04:04 | PN ---
DATE: 05/26/2018 PSYCHIATRIC PROGRESS NOTE This late entry of 05/25/2018 covers elements not covered in my initial note. SUBJECTIVE: I met with the patient in the evening. The patient slept 7 hours previous night. Overall, the patient remains withdrawn, picks and chooses her medications per nursing staff, somewhat "grouchy." I met with her individually. She has been working on crossword puzzles. REVIEW OF SYSTEMS: Ambulation impaired, in wheelchair. No CV, , pulmonary, eye system symptoms on review. MENTAL STATUS EXAM: Oriented to herself and situation. Speech moderate latency, low in rate and rhythm, low in volume. Abstraction fair, computation impaired, language function intact, attention span short. Mood and affect withdrawn. LABORATORY DATA: Reviewed. IMPRESSION: Bipolar 1 disorder, mixed with psychotic features, in partial remission. Rest unchanged. PLAN: No change from initial note. MAN Luis QUIJANO MD DR: LOYD/eboni JOB#: [id number] / [id number]
[2018-05-27] MEDS: LEVOTHYROXINE 75 MCG TABLET PO SCH (04:52)
[2018-05-27 05:38] VITALS: BP 95/60
[2018-05-27] MEDS: CALCIUM CARBONATE 500 MG TABLET PO SCH ×2 (07:48→17:26)
[2018-05-27] MEDS: MAGNESIUM OXIDE 400 MG TABLET PO SCH ×3 (07:48→19:41)
[2018-05-27] MEDS: CHOLECALCIFEROL (VITAMIN D3) 1,000 UNIT TABLET PO SCH (07:48)
[2018-05-27] MEDS: FERROUS SULFATE 325 MG TABLET. PO SCH ×2 (07:48→17:26)
[2018-05-27] MEDS: PANTOPRAZOLE 40 MG TABLET. PO SCH (07:48)
[2018-05-27] MEDS: OLANZapine 5 MG TABLET PO SCH ×2 (07:48→19:40)
[2018-05-27] MEDS: levETIRAcetam 500 MG TABLET PO SCH ×2 (07:48→19:40)
[2018-05-27] MEDS: busPIRone 15 MG TABLET. PO SCH ×2 (07:49→17:26)
[2018-05-27] MEDS: FELBAMATE 400 MG TABLET PO SCH ×3 (07:52→21:59)
[2018-05-27] MEDS: LACOSAMIDE 50 MG TABLET PO SCH ×2 (07:52→19:50)
[2018-05-27] MEDS: PHENobarbital 32.4 MG TABLET. PO SCH ×2 (07:52→19:41)
[2018-05-27] MEDS: traMADol 50 MG TABLET PO SCH ×2 (07:53→19:50)
--- NOTE | 2018-05-27 09:05 | PDOC ---
Exam Note: David Note: Late entry for DOS 05.26.2018. Please also refer to the separate dictated note~ for this date of service dictated separately.~Patient seen individually. Discussed the patient with Nursing staff reviewed the chart.~Reviewed interim history and current functioning. Reviewed vital signs,~Labs/ Radiology~and current medications noted below. Continue current treatment with the changes noted in the dictated addendum note Assessment: Vital Signs: VS - Last 72 Hours, by Label Date Time Temp Pulse Resp B/P (MAP) Pulse Ox O2 Delivery O2 Flow Rate FiO2 05/27/18 07:53 95 05/27/18 05:38 97.8 68 18 95/60 (72) 95 05/26/18 20:13 99 05/26/18 19:13 99 05/26/18 16:15 97.0 75 18 100/67 (78) 99 05/26/18 05:57 97.8 72 18 105/68 (80) 97 05/25/18 16:51 98.8 90 18 99/67 (78) 95 05/25/18 09:21 16 05/25/18 08:10 16 05/25/18 06:33 97.2 77 16 106/67 (80) 96 Room Air 05/24/18 21:15 98.1 81 16 95/65 (75) 94 Room Air 05/24/18 19:32 96 05/24/18 16:38 97.4 87 18 90/60 (70) 96 05/24/18 10:58 Room Air Vital Signs Date Time Temp Pulse Resp B/P (MAP) Pulse Ox O2 Delivery O2 Flow Rate FiO2 05/27/18 07:53 95 05/27/18 05:38 97.8 68 18 95/60 (72) 05/25/18 06:33 Room Air I&O Intake and Output 05/27/18 07:00 Intake Total 1080 ml Balance 1080 ml Intake Oral 1080 ml # Voids 1 Current Medications: Meds: Current Medications Haloperidol Lactate (Haldol) 5 mg 1X ONCE IM Last administered on 05/15/18at 00 :47; Start 05/15/18 at 01:00; Stop 05/15/18 at 01:01; Status DC Diphenhydramine HCl (Benadryl) 50 mg 1X ONCE IM Last administered on at 00:47; Start 05/15/18 at 01:00; Stop 05/15/18 at 01:01; Status DC Lorazepam (Ativan) 2 mg 1X ONCE IM Last administered on 05/15/18at 00:46; Start 05/15/18 at 00:30; Stop 05/15/18 at 00:51; Status DC Acetaminophen (Tylenol) 650 mg PRN Q4HRS PRN PO FEVER; Start 05/15/18 at 02:15 ; Stop 05/15/18 at 05:14; Status DC Acetaminophen (Tylenol) 650 mg PRN Q6HRS PRN PO PAIN / TEMP Last administered on 05/25/18at 16:45; Start 05/15/18 at 05:15 Calcium Carbonate/ Glycine (Oscal) 500 mg BIDWMEALS PO Last administered on 04/02at 07:48; Start 05/15/18 at 08:00 Vitamin D (Vitamin D3) 1,000 unit DAILY PO Last administered on 05/27/18at 07:48 ; Start 05/15/18 at 09:00 Felbamate (Felbatol) 400 mg TID PO Last administered on 05/27/18at 07:52; Start 05/15/18 at 09:00 Ferrous Sulfate (Feosol) 325 mg BIDAFTMEAL PO Last administered on 05/27/18 07 :48; Start 05/15/18 at 09:00 Al Hydroxide/Mg Hydroxide (Mylanta Plus Xs) 15 ml PRN AFTMEALHC PRN PO DYSPEPSIA; Start 05/15/18 at 05:15 Multi-Ingredient Ointment (Analgesic [place]) 1 radha PRN QID PRN TP MUSCLE PAIN; Start 05/15/18 at 05:15 Senna/Docusate Sodium (Senna Plus) 1 tab PRN BID PRN PO CONSTIPATION; Start at 05:15; Stop 05/15/18 at 10:54; Status DC Tramadol HCl (Ultram) 50 mg PRN Q6HRS PRN PO PAIN; Start 05/15/18 at 05:15; Stop 05/15/18 at 10:54; Status DC Atorvastatin Calcium (Lipitor) 5 mg QHS PO ; Start 05/15/18 at 21:00; Stop 05/15 at 21:00; Status DC Bisacodyl (Dulcolax Supp) 10 mg PRN DAILY PRN [place] CONSTIPATION; Start 05/15/18 at 05:30 Divalproex Sodium (Depakote Sprinkles) 500 mg DAILY PO ; Start 05/15/18 at 09:00 ; Stop 05/15/18 at 10:54; Status DC Divalproex Sodium (Depakote Sprinkles) 750 mg QHS PO ; Start 05/15/18 at 21:00; Stop 05/15/18 at 21:00; Status DC Duloxetine HCl (Cymbalta) 60 mg DAILY PO ; Start 05/15/18 at 09:00; Stop at 10:54; Status DC Lacosamide (Vimpat) 200 mg BIDAFTMEAL PO ; Start 05/15/18 at 09:00; Stop at 09:00; Status DC Levetiracetam (Keppra) 750 mg BIDAFTMEAL PO ; Start 05/15/18 at 09:00; Stop at 09:00; Status DC Levothyroxine Sodium (Synthroid) 50 mcg DAILY06 PO ; Start 05/15/18 at 06:00; Stop 05/15/18 at 06:00; Status DC Magnesium Hydroxide (Milk Of Magnesia) 2,400 mg PRN QHS PRN PO CONSTIPATION; Start 05/15/18 at 05:30 Magnesium Oxide (Magnesium Oxide) 400 mg TID PO Last administered on 05/27/18at 07:48; Start 05/15/18 at 09:00 Pantoprazole Sodium (Protonix) 40 mg BIDBFRMEAL PO ; Start 05/15/18 at 07:30; Stop 05/15/18 at 07:41; Status DC Phenobarbital (Luminal) 64.8 mg QHS PO ; Start 05/15/18 at 21:00; Stop 05/15/18 at 21:00; Status DC Polyethylene Glycol (miraLAX) 17 gm PRN DAILY PRN PO CONSTIPATION; Start at 09:00; Stop 05/15/18 at 10:54; Status DC Quetiapine Fumarate (SEROquel) 12.5 mg QID PO ; Start 05/15/18 at 09:00; Stop at 10:54; Status DC Trazodone HCl (Desyrel) 50 mg PRN QHS PRN PO INSOMNIA, MAY REPEAT X1; Start at 05:30 Multi-Ingredient Ointment (Analgesic [place]) 1 radha PRN QID PRN TP MUSCLE PAIN; Start 05/15/18 at 05:45; Status UNV Al Hydroxide/Mg Hydroxide (Mylanta Plus Xs) 15 ml PRN AFTMEALHC PRN PO DYSPEPSIA; Start 05/15/18 at 05:45; Status UNV Magnesium Hydroxide (Milk Of Magnesia) 2,400 mg PRN QHS PRN PO CONSTIPATION; Start 05/15/18 at 05:45; Status UNV Levetiracetam (Keppra) 500 mg BID PO Last administered on 05/27/18at 07:48; Start 05/15/18 at 09:00 Levothyroxine Sodium (Synthroid) 75 mcg DAILY06 PO Last administered on at 04:52; Start 05/16/18 at 06:00 Pantoprazole Sodium (Protonix) 20 mg BIDBFRMEAL PO ; Start 05/15/18 at 16:30; Stop 05/15/18 at 16:30; Status DC Phenobarbital (Luminal) 64.8 mg BID PO Last administered on 05/27/18at 07:52; Start 05/15/18 at 09:00 Cetirizine HCl (ZyrTEC) 10 mg HS PO Last administered on 05/26/18at 19:11; Start 05/15/18 at 21:00 Multi-Ingred Cream/Lotion/Oil/ Oint (Hydrocerin) 1 radha PRN Q12HR PRN TP DRY SKIN / SCALING; Start 05/15/18 at 07:30 Guaifenesin (Guaifenesin) 100 mg PRN Q4HRS PRN PO COUGH; Start 05/15/18 at 07: 30; Stop 05/15/18 at 10:54; Status DC Ibuprofen (Motrin) 400 mg PRN Q4HRS PRN PO INFLAMMATION; Start 05/15/18 at 07: 30; Stop 05/15/18 at 11:10; Status DC Olanzapine (ZyPREXA) 5 mg BID PO Last administered on 05/27/18at 07:48; Start at 09:00 Mirtazapine (Remeron) 15 mg QHS PO Last administered on 05/26/18at 19:11; Start 05/15/18 at 21:00 Tramadol HCl (Ultram) 50 mg PRN Q8HRS PRN PO PAIN; Start 05/15/18 at 07:30 Tramadol HCl (Ultram) 50 mg BID PRN PO PAIN; Start 05/15/18 at 07:30; Stop at 10:54; Status DC Lacosamide (Vimpat) 200 mg BID PO Last administered on 05/27/18at 07:52; Start 05/15/18 at 09:00 Calcium Carbonate/ Glycine (Oscal) 500 mg BID PO ; Start 05/15/18 at 21:00; Stop 05/15/18 at 21:00; Status DC Guaifenesin (Robitussin) 100 mg PRN Q4HRS PRN PO COUGH; Start 05/15/18 at 10:30 Ibuprofen (Motrin) 400 mg PRN Q4HRS PRN PO PAIN Last administered on 05/26/18at 14:54; Start 05/15/18 at 10:30 Multi-Ingred Cream/Lotion/Oil/ Oint (Hydrocerin) 120 radha PRN Q12HR PRN TP dry skin; Start 05/15/18 at 10:30; Stop 05/15/18 at 11:07; Status DC Tramadol HCl (Ultram) 50 mg BID PRN PO PAIN; Start 05/15/18 at 10:30; Stop at 13:43; Status DC Tramadol HCl (Ultram) 50 mg PRN Q8HRS PRN PO PAIN; Start 05/15/18 at 10:30; Stop 05/15/18 at 11:25; Status DC Non-Formulary Medication (Cetirizine Hcl ) 10 mg QHS PO ; Start 05/15/18 at 21: 00; Stop 05/15/18 at 21:00; Status DC Non-Formulary Medication (Mirtazapine (Remeron)) 15 mg QHS PO ; Start 05/15/18 at 21:00; Stop 05/15/18 at 21:00; Status DC Non-Formulary Medication (Olanzapine ) 5 mg BID PO ; Start 05/15/18 at 21:00; Stop 05/15/18 at 21:00; Status DC Atorvastatin Calcium (Lipitor) 10 mg QHS PO Last administered on 05/26/18at 19: 11; Start 05/15/18 at 21:00 Tramadol HCl (Ultram) 50 mg BID PO Last administered on 05/27/18at 07:53; Start 05/15/18 at 21:00 Pantoprazole Sodium (Protonix) 40 mg DAILYAC PO Last administered on 05/27/18at 07:48; Start 05/15/18 at 11:30 Buspirone HCl (Buspar) 5 mg BIDWBKFT/JIN PO Last administered on 05/19/18at 12:22 ; Start 05/16/18 at 17:00; Stop 05/19/18 at 16:26; Status DC Buspirone HCl (Buspar) 10 mg BIDWBKFT/JIN PO ; Start 05/20/18 at 08:00; Stop 05/20 at 08:29; Status DC Buspirone HCl (Buspar) 10 mg BIDWBKFT/JIN PO Last administered on 05/22/18at 12: 00; Start 05/20/18 at 08:30; Stop 05/22/18 at 21:00; Status DC Buspirone HCl (Buspar) 15 mg BIDACBL PO Last administered on 05/23/18at 11:58; Start 05/23/18 at 07:30; Stop 05/23/18 at 18:46; Status DC Buspirone HCl (Buspar) 15 mg 0900,1700 PO Last administered on 05/27/18at 07:49 ; Start 05/24/18 at 09:00 Active Scripts Active Reported Tramadol Hcl (Tramadol HCl) 50 Mg Tablet 50 Mg PO BID PRN Tramadol Hcl (Tramadol HCl) 50 Mg Tablet 50 Mg PO PRN Q8HRS PRN Remeron (Mirtazapine) 15 Mg Tablet 15 Mg PO QHS Olanzapine 5 Mg Tablet 5 Mg PO BID Ibuprofen 400 Mg Tablet 400 Mg PO PRN Q4HRS PRN Guaifenesin 100 Mg/5 Ml Liquid 5 Ml PO PRN Q4HRS PRN Eucerin Creme (Mineral Oil/Petrolatum,White) 120 Gm Cream..g. 120 Gm TP PRN Q12HR PRN Cetirizine Hcl 10 Mg Tablet 10 Mg PO QHS Calcium Carbonate 500 Mg Tablet 500 Mg PO BID Levothyroxine Sodium 50 Mcg Tablet 75 Mcg PO DAILY06 Analgesic [place] (Methyl Salicylate/Menthol) 28 Gm Oint...g. 1 Radha TP PRN QID PRN Mag-Al Plus Xs Suspension (Mag Hydrox/Al Hydrox/Simeth) 30 Ml Oral.susp 15 Ml PO PRN AFTMEALHC PRN Vimpat (Lacosamide) 200 Mg Tablet 200 Mg PO BID Milk Of Magnesia (Magnesium Hydroxide) 2,400 Mg/10 Ml Oral.susp 2,400 Mg PO PRN QHS PRN Atorvastatin Calcium 10 Mg Tablet 10 Mg PO QHS Pantoprazole Sodium 40 Mg Tablet.dr 20 Mg PO BIDBFRMEAL Vitamin D3 (Cholecalciferol (Vitamin D3)) 1,000 Unit Tablet 1,000 Unit PO DAILY Phenobarbital 64.8 Mg Tablet 64.8 Mg PO BID Magnesium Oxide 400 Mg Tablet 400 Mg PO TID Tylenol (Acetaminophen) 325 Mg Tablet 650 Mg PO PRN Q6HRS PRN Keppra (Levetiracetam) 250 Mg Tablet 500 Mg PO BID Ferrous Sulfate 325 Mg Tablet 325 Mg PO BIDAFTMEAL Bisacodyl 10 Mg Supp.rect 10 Mg RC PRN DAILY PRN Felbamate 400 Mg Tablet 400 Mg PO TID I have reviewed the current psychotropics carefully including drug interactions. Risk benefit ratio favors no change other than as noted in my dictated progress note. Diagnosis: Problems: (1) Functional diarrhea (2) urinary tract infection (3) Left hip arthroplasty (4) Severe major depression with psychotic features (5) Adjustment disorder with depressed mood (6) Bipolar affective, mixed (7) Impulse control disorder (8) Dementia, vascular, with delusions (9) Dementia, vascular, with depression HARVEY QUIJANO MD May 27, 2018 09:05
[2018-05-27] MEDS: IBUPROFEN 400 MG TABLET. PO PRN (12:17)
[2018-05-27 15:01] VITALS: BP 106/73
--- NOTE | 2018-05-27 15:37 | NUR ---
Behavior Intervention Response and Plan: BIRP Note: Behavior: Assumed Care of patient, patient located in Dining Room at shift change. Patient exhibited the following behavior Calm, Disorganized, Cooperative. Brief assessment on rounds of vital signs, medication needs, lab studies, and pain. Treatment plan problems alteration in mood and fall risk. Intervention: Patient assessed and the following interventions initiated safety checks 15 Minute Checks Cognitive Assessment , Head to toe Assessment , Medications. Response: After interactions and interventions patient responded in the following manner, Calm , Withdrawn ,Cooperative. Continue to assess behaviors and condition will continue to monitor throughout the shift as needed. Patient educated on ADL's, and hand hygiene. Plan: Continue to monitor Master Treatment Plan for patient's progress toward short term goals of Decreased Agitation, Medication Compliance, alf goals to return to previous living setting vs placement. Continue to assess patient for changes in above assessment. Monitor for medication needs, pain, and safety concerns. Hourly rounding performed to ensure safe environment.
[2018-05-27] MEDS: CETIRIZINE HCL 10 MG TABLET PO SCH (19:41)
[2018-05-27] MEDS: MIRTAZAPINE 15 MG TABLET PO SCH (19:41)
[2018-05-27] MEDS: ATORVASTATIN CALCIUM 10 MG TABLET. PO SCH (19:41)
--- NOTE | 2018-05-27 19:49 | PN ---
DATE: 05/26/2018 PSYCHIATRIC PROGRESS NOTE This late entry for 05/26/2018 covers the elements not covered in my initial note. SUBJECTIVE: I met with the patient in the evening. The patient slept 8 hours previous night. Overall, the patient is doing better, less anxious. Her sister visited her and she was appreciative of this. She is compliant with her medications. I met with her in her room in the evening. She was in her room with the lights off, seated in a wheelchair. I turned on the lights, got her puzzle book and she was able to tell me the puzzle she solved and what she was working on. It takes encouragement to get her involved with doing things rather than ruminating and withdrawing. REVIEW OF SYSTEMS: Ambulation impaired, in wheelchair. No CV, , pulmonary, eye system symptoms on review. MENTAL STATUS EXAMINATION: Oriented to herself and situation. Speech moderate latency, often responses monosyllabic, coherent. Abstraction fair, computation impaired, language function intact, attention span short. Mood and affect somewhat withdrawn. LABORATORY DATA: Reviewed. No clear suicidal or homicidal ideation. IMPRESSION: Unchanged from initial note. PLAN: Continue current psychotropics and may increase BuSpar further or Zyprexa depending on her presenting symptoms. HARVEY QUIJANO MD DR: LOYD/eboni JOB#: [id number] / [id number]
--- NOTE | 2018-05-27 21:00 | NUR ---
Behavior Intervention Response and Plan: BIRP Note: Behavior: Assumed Care of patient, patient located in Hallway at shift change. Patient exhibited the following behavior Compulsive, Compulsive, Disorganized. Brief assessment on rounds of vital signs, medication needs, lab studies, and pain. Treatment plan problems . Intervention: Patient assessed and the following interventions initiated safety checks 15 Minute Checks Cognitive Assessment , Head to toe Assessment , Medications. Response: After interactions and interventions patient responded in the following manner, Drowsy , Calm ,Withdrawn. Continue to assess behaviors and condition will continue to monitor throughout the shift as needed. Patient educated on ADL's, and hand hygiene. Plan: Continue to monitor Master Treatment Plan for patient's progress toward short term goals of Decreased Agitation, Decreased Anxiety, mcc goals to return to previous living setting vs placement. Continue to assess patient for changes in above assessment. Monitor for medication needs, pain, and safety concerns. Hourly rounding performed to ensure safe environment.
--- NOTE | 2018-05-27 22:31 | PDOC ---
Exam Note: David Note: Please also refer to the separate dictated note~for this date of service dictated separately.~Patient seen individually. Discussed the patient with Nursing staff reviewed the chart.~Reviewed interim history and current functioning. Reviewed vital signs,~Labs/ Radiology~and current medications noted below. Continue current treatment with the changes noted in the dictated addendum note Assessment: Vital Signs: Vital Signs Date Time Temp Pulse Resp B/P (MAP) Pulse Ox O2 Delivery O2 Flow Rate FiO2 05/27/18 15:01 98.5 78 18 106/73 (84) 99 05/25/18 06:33 Room Air I&O Intake and Output 05/27/18 06:59 Intake Total 1080 ml Balance 1080 ml Intake Oral 1080 ml # Voids 1 Current Medications: Meds: Current Medications Haloperidol Lactate (Haldol) 5 mg 1X ONCE IM Last administered on 05/15/18at 00 :47; Start 05/15/18 at 01:00; Stop 05/15/18 at 01:01; Status DC Diphenhydramine HCl (Benadryl) 50 mg 1X ONCE IM Last administered on at 00:47; Start 05/15/18 at 01:00; Stop 05/15/18 at 01:01; Status DC Lorazepam (Ativan) 2 mg 1X ONCE IM Last administered on 05/15/18at 00:46; Start 05/15/18 at 00:30; Stop 05/15/18 at 00:51; Status DC Acetaminophen (Tylenol) 650 mg PRN Q4HRS PRN PO FEVER; Start 05/15/18 at 02:15 ; Stop 05/15/18 at 05:14; Status DC Acetaminophen (Tylenol) 650 mg PRN Q6HRS PRN PO PAIN / TEMP Last administered on 05/25/18 16:45; Start 05/15/18 at 05:15 Calcium Carbonate/ Glycine (Oscal) 500 mg BIDWMEALS PO Last administered on 17:26; Start 05/15/18 at 08:00 Vitamin D (Vitamin D3) 1,000 unit DAILY PO Last administered on 05/27/18 07:48 ; Start 05/15/18 at 09:00 Felbamate (Felbatol) 400 mg TID PO Last administered on 2/12/19at 21:59; Start 05/15/18 at 09:00 Ferrous Sulfate (Feosol) 325 mg BIDAFTMEAL PO Last administered on 05/27/18at 17 :26; Start 05/15/18 at 09:00 Al Hydroxide/Mg Hydroxide (Mylanta Plus Xs) 15 ml PRN AFTMEALHC PRN PO DYSPEPSIA; Start 05/15/18 at 05:15 Multi-Ingredient Ointment (Analgesic Mumford) 1 radha PRN QID PRN TP MUSCLE PAIN; Start 05/15/18 at 05:15 Senna/Docusate Sodium (Senna Plus) 1 tab PRN BID PRN PO CONSTIPATION; Start at 05:15; Stop 05/15/18 at 10:54; Status DC Tramadol HCl (Ultram) 50 mg PRN Q6HRS PRN PO PAIN; Start 05/15/18 at 05:15; Stop 05/15/18 at 10:54; Status DC Atorvastatin Calcium (Lipitor) 5 mg QHS PO ; Start 05/15/18 at 21:00; Stop 05/15 at 21:00; Status DC Bisacodyl (Dulcolax Supp) 10 mg PRN DAILY PRN DC CONSTIPATION; Start 05/15/18 at 05:30 Divalproex Sodium (Depakote Sprinkles) 500 mg DAILY PO ; Start 05/15/18 at 09:00 ; Stop 05/15/18 at 10:54; Status DC Divalproex Sodium (Depakote Sprinkles) 750 mg QHS PO ; Start 05/15/18 at 21:00; Stop 05/15/18 at 21:00; Status DC Duloxetine HCl (Cymbalta) 60 mg DAILY PO ; Start 05/15/18 at 09:00; Stop at 10:54; Status DC Lacosamide (Vimpat) 200 mg BIDAFTMEAL PO ; Start 05/15/18 at 09:00; Stop at 09:00; Status DC Levetiracetam (Keppra) 750 mg BIDAFTMEAL PO ; Start 05/15/18 at 09:00; Stop at 09:00; Status DC Levothyroxine Sodium (Synthroid) 50 mcg DAILY06 PO ; Start 05/15/18 at 06:00; Stop 05/15/18 at 06:00; Status DC Magnesium Hydroxide (Milk Of Magnesia) 2,400 mg PRN QHS PRN PO CONSTIPATION; Start 05/15/18 at 05:30 Magnesium Oxide (Magnesium Oxide) 400 mg TID PO Last administered on 05/27/18at 19:41; Start 05/15/18 at 09:00 Pantoprazole Sodium (Protonix) 40 mg BIDBFRMEAL PO ; Start 05/15/18 at 07:30; Stop 05/15/18 at 07:41; Status DC Phenobarbital (Luminal) 64.8 mg QHS PO ; Start 05/15/18 at 21:00; Stop 05/15/18 at 21:00; Status DC Polyethylene Glycol (miraLAX) 17 gm PRN DAILY PRN PO CONSTIPATION; Start at 09:00; Stop 05/15/18 at 10:54; Status DC Quetiapine Fumarate (SEROquel) 12.5 mg QID PO ; Start 05/15/18 at 09:00; Stop at 10:54; Status DC Trazodone HCl (Desyrel) 50 mg PRN QHS PRN PO INSOMNIA, MAY REPEAT X1; Start at 05:30 Multi-Ingredient Ointment (Analgesic Mumford) 1 radha PRN QID PRN TP MUSCLE PAIN; Start 05/15/18 at 05:45; Status UNV Al Hydroxide/Mg Hydroxide (Mylanta Plus Xs) 15 ml PRN AFTMEALHC PRN PO DYSPEPSIA; Start 05/15/18 at 05:45; Status UNV Magnesium Hydroxide (Milk Of Magnesia) 2,400 mg PRN QHS PRN PO CONSTIPATION; Start 05/15/18 at 05:45; Status UNV Levetiracetam (Keppra) 500 mg BID PO Last administered on 05/27/18at 19:40; Start 05/15/18 at 09:00 Levothyroxine Sodium (Synthroid) 75 mcg DAILY06 PO Last administered on at 04:52; Start 05/16/18 at 06:00 Pantoprazole Sodium (Protonix) 20 mg BIDBFRMEAL PO ; Start 05/15/18 at 16:30; Stop 05/15/18 at 16:30; Status DC Phenobarbital (Luminal) 64.8 mg BID PO Last administered on 05/27/18 19:41; Start 05/15/18 at 09:00 Cetirizine HCl (ZyrTEC) 10 mg HS PO Last administered on 05/27/18 19:41; Start 05/15/18 at 21:00 Multi-Ingred Cream/Lotion/Oil/ Oint (Hydrocerin) 1 radha PRN Q12HR PRN TP DRY SKIN / SCALING; Start 05/15/18 at 07:30 Guaifenesin (Guaifenesin) 100 mg PRN Q4HRS PRN PO COUGH; Start 05/15/18 at 07: 30; Stop 05/15/18 at 10:54; Status DC Ibuprofen (Motrin) 400 mg PRN Q4HRS PRN PO INFLAMMATION; Start 05/15/18 at 07: 30; Stop 05/15/18 at 11:10; Status DC Olanzapine (ZyPREXA) 5 mg BID PO Last administered on 05/27/18at 19:40; Start at 09:00 Mirtazapine (Remeron) 15 mg QHS PO Last administered on 05/27/18 19:41; Start 05/15/18 at 21:00 Tramadol HCl (Ultram) 50 mg PRN Q8HRS PRN PO PAIN; Start 05/15/18 at 07:30 Tramadol HCl (Ultram) 50 mg BID PRN PO PAIN; Start 05/15/18 at 07:30; Stop at 10:54; Status DC Lacosamide (Vimpat) 200 mg BID PO Last administered on 05/27/18at 19:50; Start 05/15/18 at 09:00 Calcium Carbonate/ Glycine (Oscal) 500 mg BID PO ; Start 05/15/18 at 21:00; Stop 05/15/18 at 21:00; Status DC Guaifenesin (Robitussin) 100 mg PRN Q4HRS PRN PO COUGH; Start 05/15/18 at 10:30 Ibuprofen (Motrin) 400 mg PRN Q4HRS PRN PO PAIN Last administered on 05/27/18at 12:17; Start 05/15/18 at 10:30 Multi-Ingred Cream/Lotion/Oil/ Oint (Hydrocerin) 120 radha PRN Q12HR PRN TP dry skin; Start 05/15/18 at 10:30; Stop 05/15/18 at 11:07; Status DC Tramadol HCl (Ultram) 50 mg BID PRN PO PAIN; Start 05/15/18 at 10:30; Stop at 13:43; Status DC Tramadol HCl (Ultram) 50 mg PRN Q8HRS PRN PO PAIN; Start 05/15/18 at 10:30; Stop 05/15/18 at 11:25; Status DC Non-Formulary Medication (Cetirizine Hcl ) 10 mg QHS PO ; Start 05/15/18 at 21: 00; Stop 05/15/18 at 21:00; Status DC Non-Formulary Medication (Mirtazapine (Remeron)) 15 mg QHS PO ; Start 05/15/18 at 21:00; Stop 05/15/18 at 21:00; Status DC Non-Formulary Medication (Olanzapine ) 5 mg BID PO ; Start 05/15/18 at 21:00; Stop 05/15/18 at 21:00; Status DC Atorvastatin Calcium (Lipitor) 10 mg QHS PO Last administered on 05/27/18at 19: 41; Start 05/15/18 at 21:00 Tramadol HCl (Ultram) 50 mg BID PO Last administered on 05/27/18at 19:50; Start 05/15/18 at 21:00 Pantoprazole Sodium (Protonix) 40 mg DAILYAC PO Last administered on 05/27/18at 07:48; Start 05/15/18 at 11:30 Buspirone HCl (Buspar) 5 mg BIDWBKFT/JIN PO Last administered on 05/19/18at 12:22 ; Start 05/16/18 at 17:00; Stop 05/19/18 at 16:26; Status DC Buspirone HCl (Buspar) 10 mg BIDWBKFT/JIN PO ; Start 05/20/18 at 08:00; Stop 05/20 at 08:29; Status DC Buspirone HCl (Buspar) 10 mg BIDWBKFT/JIN PO Last administered on 05/22/18at 12: 00; Start 05/20/18 at 08:30; Stop 05/22/18 at 21:00; Status DC Buspirone HCl (Buspar) 15 mg BIDACBL PO Last administered on 05/23/18at 11:58; Start 05/23/18 at 07:30; Stop 05/23/18 at 18:46; Status DC Buspirone HCl (Buspar) 15 mg 0900,1700 PO Last administered on 05/27/18at 17:26 ; Start 05/24/18 at 09:00 Active Scripts Active Reported Tramadol Hcl (Tramadol HCl) 50 Mg Tablet 50 Mg PO BID PRN Tramadol Hcl (Tramadol HCl) 50 Mg Tablet 50 Mg PO PRN Q8HRS PRN Remeron (Mirtazapine) 15 Mg Tablet 15 Mg PO QHS Olanzapine 5 Mg Tablet 5 Mg PO BID Ibuprofen 400 Mg Tablet 400 Mg PO PRN Q4HRS PRN Guaifenesin 100 Mg/5 Ml Liquid 5 Ml PO PRN Q4HRS PRN Eucerin Creme (Mineral Oil/Petrolatum,White) 120 Gm Cream..g. 120 Gm TP PRN Q12HR PRN Cetirizine Hcl 10 Mg Tablet 10 Mg PO QHS Calcium Carbonate 500 Mg Tablet 500 Mg PO BID Levothyroxine Sodium 50 Mcg Tablet 75 Mcg PO DAILY06 Analgesic Mumford (Methyl Salicylate/Menthol) 28 Gm Oint...g. 1 Radha TP PRN QID PRN Mag-Al Plus Xs Suspension (Mag Hydrox/Al Hydrox/Simeth) 30 Ml Oral.susp 15 Ml PO PRN AFTMEALHC PRN Vimpat (Lacosamide) 200 Mg Tablet 200 Mg PO BID Milk Of Magnesia (Magnesium Hydroxide) 2,400 Mg/10 Ml Oral.susp 2,400 Mg PO PRN QHS PRN Atorvastatin Calcium 10 Mg Tablet 10 Mg PO QHS Pantoprazole Sodium 40 Mg Tablet.dr 20 Mg PO BIDBFRMEAL Vitamin D3 (Cholecalciferol (Vitamin D3)) 1,000 Unit Tablet 1,000 Unit PO DAILY Phenobarbital 64.8 Mg Tablet 64.8 Mg PO BID Magnesium Oxide 400 Mg Tablet 400 Mg PO TID Tylenol (Acetaminophen) 325 Mg Tablet 650 Mg PO PRN Q6HRS PRN Keppra (Levetiracetam) 250 Mg Tablet 500 Mg PO BID Ferrous Sulfate 325 Mg Tablet 325 Mg PO BIDAFTMEAL Bisacodyl 10 Mg Supp.rect 10 Mg RC PRN DAILY PRN Felbamate 400 Mg Tablet 400 Mg PO TID I have reviewed the current psychotropics carefully including drug interactions. Risk benefit ratio favors no change other than as noted in my dictated progress note. Diagnosis: Problems: (1) Functional diarrhea (2) urinary tract infection (3) Left hip arthroplasty (4) Severe major depression with psychotic features (5) Adjustment disorder with depressed mood (6) Bipolar affective, mixed (7) Impulse control disorder (8) Dementia, vascular, with delusions (9) Dementia, vascular, with depression HARVEY QUIJANO MD May 27, 2018 22:31
[2018-05-28] MEDS: LEVOTHYROXINE 75 MCG TABLET PO SCH (05:48)
[2018-05-28 05:51] VITALS: BP 95/64
[2018-05-28 07:38] LABS: BASO % 1 % (0-3); EOS # 0.4 x10^3/uL (0.0-0.7); EOS % 6 % (0-3); HEMATOCRIT 30.6 % (36.0-47.0); HEMOGLOBIN 10.4 g/dL (12.0-15.5); LYMPH # 1.3 x10^3/uL (1.0-4.8); LYMPH % 21 % (24-48); MEAN CORPUSCULAR HEMOGLOBIN 33 pg (25-35); MEAN CORPUSCULAR HGB CONC 34 g/dL (31-37); MEAN CORPUSCULAR VOLUME 97 fL (79-100); MONO # 0.7 x10^3/uL (0.0-1.1); MONO % 11 % (0-9); NEUT # 3.8 x10^3uL (1.8-7.7); NEUT % 62 % (31-73); PLATELET COUNT 167 x10^3/uL (140-400); RED BLOOD COUNT 3.16 x10^6/uL (3.50-5.40); RED CELL DISTRIBUTION WIDTH 13.7 % (11.5-14.5); WHITE BLOOD COUNT 6.1 x10^3/uL (4.0-11.0)
[2018-05-28 07:48] LABS: ALBUMIN 2.6 g/dL (3.4-5.0); ALBUMIN/GLOBULIN RATIO 0.8 (1.0-1.7); CALCIUM 8.5 mg/dL (8.5-10.1); CREATININE 0.6 mg/dL (0.6-1.0); GFR 100.3; POTASSIUM 4.2 mmol/L (3.5-5.1); TOTAL BILIRUBIN 0.1 mg/dL (0.2-1.0)
[2018-05-28] MEDS: MAGNESIUM OXIDE 400 MG TABLET PO SCH ×3 (09:00→19:24)
[2018-05-28] MEDS: levETIRAcetam 500 MG TABLET PO SCH ×2 (09:15→19:25)
[2018-05-28] MEDS: PHENobarbital 32.4 MG TABLET. PO SCH ×2 (09:15→19:29)
[2018-05-28] MEDS: OLANZapine 5 MG TABLET PO SCH ×2 (09:15→19:24)
[2018-05-28] MEDS: busPIRone 15 MG TABLET. PO SCH ×2 (09:16→17:17)
[2018-05-28] MEDS: PANTOPRAZOLE 40 MG TABLET. PO SCH (09:16)
[2018-05-28] MEDS: traMADol 50 MG TABLET PO SCH ×2 (09:17→19:28)
[2018-05-28] MEDS: FERROUS SULFATE 325 MG TABLET. PO SCH ×2 (09:17→17:17)
[2018-05-28] MEDS: CALCIUM CARBONATE 500 MG TABLET PO SCH ×2 (09:17→17:17)
[2018-05-28] MEDS: CHOLECALCIFEROL (VITAMIN D3) 1,000 UNIT TABLET PO SCH (09:17)
[2018-05-28] MEDS: LACOSAMIDE 50 MG TABLET PO SCH ×2 (09:20→19:25)
[2018-05-28] MEDS: FELBAMATE 400 MG TABLET PO SCH ×3 (09:20→19:29)
--- NOTE | 2018-05-28 09:45 | NUR ---
Behavior Intervention Response and Plan: BIRP Note: Behavior: Assumed Care of patient, patient located in Day Room at shift change. Patient exhibited the following behavior Sarcastic, Disorganized, Resistive. Brief assessment on rounds of vital signs, medication needs, lab studies, and pain. Treatment plan problems 1 & 2. Intervention: Patient assessed and the following interventions initiated safety checks 15 Minute Checks Cognitive Assessment , Head to toe Assessment , Medications. Response: After interactions and interventions patient responded in the following manner, Withdrawn , disorganized ,Resistive. Continue to assess behaviors and condition will continue to monitor throughout the shift as needed. Patient educated on ADL's, and hand hygiene. 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 Continue to assess patient for changes in above assessment. Monitor for medication needs, pain, and safety concerns. Hourly rounding performed to ensure safe environment.
[2018-05-28 16:02] VITALS: BP 98/68
[2018-05-28] MEDS: ATORVASTATIN CALCIUM 10 MG TABLET. PO SCH (19:25)
[2018-05-28] MEDS: CETIRIZINE HCL 10 MG TABLET PO SCH (19:25)
[2018-05-28] MEDS: MIRTAZAPINE 15 MG TABLET PO SCH (19:25)
--- NOTE | 2018-05-28 20:00 | NUR ---
Behavior Intervention Response and Plan: BIRP Note: Behavior: Assumed Care of patient, patient located in Patient Room at shift change. Patient exhibited the following behavior Calm, Disorganized, Drowsy. Brief assessment on rounds of vital signs, medication needs, lab studies, and pain. Treatment plan problems . Intervention: Patient assessed and the following interventions initiated safety checks 15 Minute Checks Cognitive Assessment , Head to toe Assessment , Medications. Response: After interactions and interventions patient responded in the following manner, Drowsy , Disorganized ,Sleeping. Continue to assess behaviors and condition will continue to monitor throughout the shift as needed. Patient educated on ADL's, and hand hygiene. 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 Continue to assess patient for changes in above assessment. Monitor for medication needs, pain, and safety concerns. Hourly rounding performed to ensure safe environment.
--- NOTE | 2018-05-28 22:11 | PDOC ---
Exam Note: David Note: Please also refer to the separate dictated note~for this date of service dictated separately.~Patient seen individually. Discussed the patient with Nursing staff reviewed the chart.~Reviewed interim history and current functioning. Reviewed vital signs,~Labs/ Radiology~and current medications noted below. Continue current treatment with the changes noted in the dictated addendum note Assessment: Vital Signs: Vital Signs Date Time Temp Pulse Resp B/P (MAP) Pulse Ox O2 Delivery O2 Flow Rate FiO2 05/28/18 16:02 98.2 87 18 98/68 (78) 96 05/28/18 10:44 Room Air I&O Intake and Output 05/28/18 07:00 Intake Total 1040 ml Balance 1040 ml Intake Oral 1040 ml # Bowel Movements 1 Labs: Laboratory Tests Test 05/28/18 07:09 White Blood Count 6.1 x10^3/uL (4.0-11.0) Red Blood Count 3.16 x10^6/uL (3.50-5.40) L Hemoglobin 10.4 g/dL (12.0-15.5) L Hematocrit 30.6 % (36.0-47.0) L Mean Corpuscular Volume 97 fL (79-100) Mean Corpuscular Hemoglobin 33 pg (25-35) Mean Corpuscular Hemoglobin Concent 34 g/dL (31-37) Red Cell Distribution Width 13.7 % (11.5-14.5) Platelet Count 167 x10^3/uL (140-400) Neutrophils (%) (Auto) 62 % (31-73) Lymphocytes (%) (Auto) 21 % (24-48) L Monocytes (%) (Auto) 11 % (0-9) H Eosinophils (%) (Auto) 6 % (0-3) H Basophils (%) (Auto) 1 % (0-3) Neutrophils # (Auto) 3.8 x10^3uL (1.8-7.7) Lymphocytes # (Auto) 1.3 x10^3/uL (1.0-4.8) Monocytes # (Auto) 0.7 x10^3/uL (0.0-1.1) Eosinophils # (Auto) 0.4 x10^3/uL (0.0-0.7) Basophils # (Auto) 0.0 x10^3/uL (0.0-0.2) Sodium Level 145 mmol/L (136-145) Potassium Level 4.2 mmol/L (3.5-5.1) Chloride Level 109 mmol/L (98-107) H Carbon Dioxide Level 33 mmol/L (21-32) H Anion Gap 3 (6-14) L Blood Urea Nitrogen 20 mg/dL (7-20) Creatinine 0.6 mg/dL (0.6-1.0) Estimated GFR (Cockcroft-Gault) 100.3 BUN/Creatinine Ratio 33 (6-20) H Glucose Level 89 mg/dL (70-99) Calcium Level 8.5 mg/dL (8.5-10.1) Magnesium Level 2.0 mg/dL (1.8-2.4) Total Bilirubin 0.1 mg/dL (0.2-1.0) L Aspartate Amino Transferase (AST) 46 U/L (15-37) H Alanine Aminotransferase (ALT) 70 U/L (14-59) H Alkaline Phosphatase 122 U/L (46-116) H Total Protein 6.0 g/dL (6.4-8.2) L Albumin 2.6 g/dL (3.4-5.0) L Albumin/Globulin Ratio 0.8 (1.0-1.7) L Current Medications: Meds: Current Medications Haloperidol Lactate (Haldol) 5 mg 1X ONCE IM Last administered on 05/15/18at 00 :47; Start 05/15/18 at 01:00; Stop 05/15/18 at 01:01; Status DC Diphenhydramine HCl (Benadryl) 50 mg 1X ONCE IM Last administered on at 00:47; Start 05/15/18 at 01:00; Stop 05/15/18 at 01:01; Status DC Lorazepam (Ativan) 2 mg 1X ONCE IM Last administered on 05/15/18at 00:46; Start 05/15/18 at 00:30; Stop 05/15/18 at 00:51; Status DC Acetaminophen (Tylenol) 650 mg PRN Q4HRS PRN PO FEVER; Start 05/15/18 at 02:15 ; Stop 05/15/18 at 05:14; Status DC Acetaminophen (Tylenol) 650 mg PRN Q6HRS PRN PO PAIN / TEMP Last administered on 05/25/18at 16:45; Start 05/15/18 at 05:15 Calcium Carbonate/ Glycine (Oscal) 500 mg BIDWMEALS PO Last administered on at 17:17; Start 05/15/18 at 08:00 Vitamin D (Vitamin D3) 1,000 unit DAILY PO Last administered on 05/28/18at 09:17 ; Start 05/15/18 at 09:00 Felbamate (Felbatol) 400 mg TID PO Last administered on 05/28/18at 19:29; Start 05/15/18 at 09:00 Ferrous Sulfate (Feosol) 325 mg BIDAFTMEAL PO Last administered on 05/28/18 17 :17; Start 05/15/18 at 09:00 Al Hydroxide/Mg Hydroxide (Mylanta Plus Xs) 15 ml PRN AFTMEALHC PRN PO DYSPEPSIA; Start 05/15/18 at 05:15 Multi-Ingredient Ointment (Analgesic [place]) 1 radha PRN QID PRN TP MUSCLE PAIN; Start 05/15/18 at 05:15 Senna/Docusate Sodium (Senna Plus) 1 tab PRN BID PRN PO CONSTIPATION; Start at 05:15; Stop 05/15/18 at 10:54; Status DC Tramadol HCl (Ultram) 50 mg PRN Q6HRS PRN PO PAIN; Start 05/15/18 at 05:15; Stop 05/15/18 at 10:54; Status DC Atorvastatin Calcium (Lipitor) 5 mg QHS PO ; Start 05/15/18 at 21:00; Stop 05/15 at 21:00; Status DC Bisacodyl (Dulcolax Supp) 10 mg PRN DAILY PRN NE CONSTIPATION; Start 05/15/18 at 05:30 Divalproex Sodium (Depakote Sprinkles) 500 mg DAILY PO ; Start 05/15/18 at 09:00 ; Stop 05/15/18 at 10:54; Status DC Divalproex Sodium (Depakote Sprinkles) 750 mg QHS PO ; Start 05/15/18 at 21:00; Stop 05/15/18 at 21:00; Status DC Duloxetine HCl (Cymbalta) 60 mg DAILY PO ; Start 05/15/18 at 09:00; Stop at 10:54; Status DC Lacosamide (Vimpat) 200 mg BIDAFTMEAL PO ; Start 05/15/18 at 09:00; Stop at 09:00; Status DC Levetiracetam (Keppra) 750 mg BIDAFTMEAL PO ; Start 05/15/18 at 09:00; Stop at 09:00; Status DC Levothyroxine Sodium (Synthroid) 50 mcg DAILY06 PO ; Start 05/15/18 at 06:00; Stop 05/15/18 at 06:00; Status DC Magnesium Hydroxide (Milk Of Magnesia) 2,400 mg PRN QHS PRN PO CONSTIPATION; Start 05/15/18 at 05:30 Magnesium Oxide (Magnesium Oxide) 400 mg TID PO Last administered on 05/28/18at 19:24; Start 05/15/18 at 09:00 Pantoprazole Sodium (Protonix) 40 mg BIDBFRMEAL PO ; Start 05/15/18 at 07:30; Stop 05/15/18 at 07:41; Status DC Phenobarbital (Luminal) 64.8 mg QHS PO ; Start 05/15/18 at 21:00; Stop 05/15/18 at 21:00; Status DC Polyethylene Glycol (miraLAX) 17 gm PRN DAILY PRN PO CONSTIPATION; Start at 09:00; Stop 05/15/18 at 10:54; Status DC Quetiapine Fumarate (SEROquel) 12.5 mg QID PO ; Start 05/15/18 at 09:00; Stop at 10:54; Status DC Trazodone HCl (Desyrel) 50 mg PRN QHS PRN PO INSOMNIA, MAY REPEAT X1; Start at 05:30 Multi-Ingredient Ointment (Analgesic [place]) 1 radha PRN QID PRN TP MUSCLE PAIN; Start 05/15/18 at 05:45; Status UNV Al Hydroxide/Mg Hydroxide (Mylanta Plus Xs) 15 ml PRN AFTMEALHC PRN PO DYSPEPSIA; Start 05/15/18 at 05:45; Status UNV Magnesium Hydroxide (Milk Of Magnesia) 2,400 mg PRN QHS PRN PO CONSTIPATION; Start 05/15/18 at 05:45; Status UNV Levetiracetam (Keppra) 500 mg BID PO Last administered on 05/28/18 19:25; Start 05/15/18 at 09:00 Levothyroxine Sodium (Synthroid) 75 mcg DAILY06 PO Last administered on 05:48; Start 05/16/18 at 06:00 Pantoprazole Sodium (Protonix) 20 mg BIDBFRMEAL PO ; Start 05/15/18 at 16:30; Stop 05/15/18 at 16:30; Status DC Phenobarbital (Luminal) 64.8 mg BID PO Last administered on 05/28/18 19:29; Start 05/15/18 at 09:00 Cetirizine HCl (ZyrTEC) 10 mg HS PO Last administered on 05/28/18 19:25; Start 05/15/18 at 21:00 Multi-Ingred Cream/Lotion/Oil/ Oint (Hydrocerin) 1 radha PRN Q12HR PRN TP DRY SKIN / SCALING; Start 05/15/18 at 07:30 Guaifenesin (Guaifenesin) 100 mg PRN Q4HRS PRN PO COUGH; Start 05/15/18 at 07: 30; Stop 05/15/18 at 10:54; Status DC Ibuprofen (Motrin) 400 mg PRN Q4HRS PRN PO INFLAMMATION; Start 05/15/18 at 07: 30; Stop 05/15/18 at 11:10; Status DC Olanzapine (ZyPREXA) 5 mg BID PO Last administered on 05/28/18 19:24; Start at 09:00 Mirtazapine (Remeron) 15 mg QHS PO Last administered on 05/28/18 19:25; Start 05/15/18 at 21:00 Tramadol HCl (Ultram) 50 mg PRN Q8HRS PRN PO PAIN; Start 05/15/18 at 07:30 Tramadol HCl (Ultram) 50 mg BID PRN PO PAIN; Start 05/15/18 at 07:30; Stop at 10:54; Status DC Lacosamide (Vimpat) 200 mg BID PO Last administered on 2/13/19at 19:25; Start 05/15/18 at 09:00 Calcium Carbonate/ Glycine (Oscal) 500 mg BID PO ; Start 05/15/18 at 21:00; Stop 05/15/18 at 21:00; Status DC Guaifenesin (Robitussin) 100 mg PRN Q4HRS PRN PO COUGH; Start 05/15/18 at 10:30 Ibuprofen (Motrin) 400 mg PRN Q4HRS PRN PO PAIN Last administered on 05/27/18at 12:17; Start 05/15/18 at 10:30 Multi-Ingred Cream/Lotion/Oil/ Oint (Hydrocerin) 120 radha PRN Q12HR PRN TP dry skin; Start 05/15/18 at 10:30; Stop 05/15/18 at 11:07; Status DC Tramadol HCl (Ultram) 50 mg BID PRN PO PAIN; Start 05/15/18 at 10:30; Stop at 13:43; Status DC Tramadol HCl (Ultram) 50 mg PRN Q8HRS PRN PO PAIN; Start 05/15/18 at 10:30; Stop 05/15/18 at 11:25; Status DC Non-Formulary Medication (Cetirizine Hcl ) 10 mg QHS PO ; Start 05/15/18 at 21: 00; Stop 05/15/18 at 21:00; Status DC Non-Formulary Medication (Mirtazapine (Remeron)) 15 mg QHS PO ; Start 05/15/18 at 21:00; Stop 05/15/18 at 21:00; Status DC Non-Formulary Medication (Olanzapine ) 5 mg BID PO ; Start 05/15/18 at 21:00; Stop 05/15/18 at 21:00; Status DC Atorvastatin Calcium (Lipitor) 10 mg QHS PO Last administered on 05/28/18at 19: 25; Start 05/15/18 at 21:00 Tramadol HCl (Ultram) 50 mg BID PO Last administered on 05/28/18at 19:28; Start 05/15/18 at 21:00 Pantoprazole Sodium (Protonix) 40 mg DAILYAC PO Last administered on 05/28/18at 09:16; Start 05/15/18 at 11:30 Buspirone HCl (Buspar) 5 mg BIDWBKFT/JIN PO Last administered on 05/19/18at 12:22 ; Start 05/16/18 at 17:00; Stop 05/19/18 at 16:26; Status DC Buspirone HCl (Buspar) 10 mg BIDWBKFT/JIN PO ; Start 05/20/18 at 08:00; Stop 05/20 at 08:29; Status DC Buspirone HCl (Buspar) 10 mg BIDWBKFT/JIN PO Last administered on 05/22/18at 12: 00; Start 05/20/18 at 08:30; Stop 05/22/18 at 21:00; Status DC Buspirone HCl (Buspar) 15 mg BIDACBL PO Last administered on 05/23/18at 11:58; Start 05/23/18 at 07:30; Stop 05/23/18 at 18:46; Status DC Buspirone HCl (Buspar) 15 mg 0900,1700 PO Last administered on 05/28/18at 17:17 ; Start 05/24/18 at 09:00 Active Scripts Active Reported Tramadol Hcl (Tramadol HCl) 50 Mg Tablet 50 Mg PO BID PRN Tramadol Hcl (Tramadol HCl) 50 Mg Tablet 50 Mg PO PRN Q8HRS PRN Remeron (Mirtazapine) 15 Mg Tablet 15 Mg PO QHS Olanzapine 5 Mg Tablet 5 Mg PO BID Ibuprofen 400 Mg Tablet 400 Mg PO PRN Q4HRS PRN Guaifenesin 100 Mg/5 Ml Liquid 5 Ml PO PRN Q4HRS PRN Eucerin Creme (Mineral Oil/Petrolatum,White) 120 Gm Cream..g. 120 Gm TP PRN Q12HR PRN Cetirizine Hcl 10 Mg Tablet 10 Mg PO QHS Calcium Carbonate 500 Mg Tablet 500 Mg PO BID Levothyroxine Sodium 50 Mcg Tablet 75 Mcg PO DAILY06 Analgesic [place] (Methyl Salicylate/Menthol) 28 Gm Oint...g. 1 Radha TP PRN QID PRN Mag-Al Plus Xs Suspension (Mag Hydrox/Al Hydrox/Simeth) 30 Ml Oral.susp 15 Ml PO PRN AFTMEALHC PRN Vimpat (Lacosamide) 200 Mg Tablet 200 Mg PO BID Milk Of Magnesia (Magnesium Hydroxide) 2,400 Mg/10 Ml Oral.susp 2,400 Mg PO PRN QHS PRN Atorvastatin Calcium 10 Mg Tablet 10 Mg PO QHS Pantoprazole Sodium 40 Mg Tablet.dr 20 Mg PO BIDBFRMEAL Vitamin D3 (Cholecalciferol (Vitamin D3)) 1,000 Unit Tablet 1,000 Unit PO DAILY Phenobarbital 64.8 Mg Tablet 64.8 Mg PO BID Magnesium Oxide 400 Mg Tablet 400 Mg PO TID Tylenol (Acetaminophen) 325 Mg Tablet 650 Mg PO PRN Q6HRS PRN Keppra (Levetiracetam) 250 Mg Tablet 500 Mg PO BID Ferrous Sulfate 325 Mg Tablet 325 Mg PO BIDAFTMEAL Bisacodyl 10 Mg Supp.rect 10 Mg RC PRN DAILY PRN Felbamate 400 Mg Tablet 400 Mg PO TID I have reviewed the current psychotropics carefully including drug interactions. Risk benefit ratio favors no change other than as noted in my dictated progress note. Diagnosis: Problems: (1) Functional diarrhea (2) urinary tract infection (3) Left hip arthroplasty (4) Severe major depression with psychotic features (5) Adjustment disorder with depressed mood (6) Bipolar affective, mixed (7) Impulse control disorder (8) Dementia, vascular, with delusions (9) Dementia, vascular, with depression HARVEY QUIJANO MD May 28, 2018 22:11
--- NOTE | 2018-05-28 23:58 | PN ---
DATE: 05/27/2018 PSYCHIATRIC PROGRESS NOTE This late entry 05/27/2018 covers elements not covered in my initial note. SUBJECTIVE: I met with the patient in the evening at length in her room. The patient slept 7-1/2 hours previous night. The patient has been somewhat withdrawn, spends much time in her room, but had misplaced her puzzle book and I found this for her and she was appreciative of this. She has been not interactive very much socially, but not behaviorally aggressive. REVIEW OF SYSTEMS: Ambulation impaired, in wheelchair. No CV, , pulmonary, eye system symptoms on review. MENTAL STATUS EXAM: Oriented to herself and situation. Speech moderate latency, often responses monosyllabic. Abstraction fair, computation impaired, language function intact, attention span short. Mood and affect withdrawn. LABORATORY DATA: Reviewed. IMPRESSION: Unchanged from initial note. PLAN: No change from initial note. HARVEY QUIJANO MD DR: LOYD/eboni JOB#: [id number] / [id number]
[2018-05-29] MEDS: LEVOTHYROXINE 75 MCG TABLET PO SCH (05:08)
[2018-05-29 06:00] VITALS: BP 116/80
[2018-05-29] MEDS: LACOSAMIDE 50 MG TABLET PO SCH ×2 (08:05→21:00)
[2018-05-29] MEDS: OLANZapine 5 MG TABLET PO SCH ×2 (08:06→21:00)
[2018-05-29] MEDS: PHENobarbital 32.4 MG TABLET. PO SCH ×2 (08:06→19:20)
[2018-05-29] MEDS: CALCIUM CARBONATE 500 MG TABLET PO SCH ×2 (08:06→17:32)
[2018-05-29] MEDS: MAGNESIUM OXIDE 400 MG TABLET PO SCH ×3 (08:08→19:19)
[2018-05-29] MEDS: busPIRone 15 MG TABLET. PO SCH ×2 (08:08→17:32)
[2018-05-29] MEDS: CHOLECALCIFEROL (VITAMIN D3) 1,000 UNIT TABLET PO SCH (08:08)
[2018-05-29] MEDS: traMADol 50 MG TABLET PO SCH ×2 (08:08→19:19)
[2018-05-29] MEDS: levETIRAcetam 500 MG TABLET PO SCH ×2 (08:08→19:18)
[2018-05-29] MEDS: FELBAMATE 400 MG TABLET PO SCH ×3 (08:09→19:19)
[2018-05-29] MEDS: FERROUS SULFATE 325 MG TABLET. PO SCH ×2 (08:09→17:32)
[2018-05-29] MEDS: PANTOPRAZOLE 40 MG TABLET. PO SCH (08:09)
--- NOTE | 2018-05-29 08:30 | NUR ---
Behavior Intervention Response and Plan: BIRP Note: Behavior: Assumed Care of patient, patient located in Day Room at shift change. Patient exhibited the following behavior Sarcastic, Disorganized, Resistive. Brief assessment on rounds of vital signs, medication needs, lab studies, and pain. Treatment plan problems 1 & 2. Intervention: Patient assessed and the following interventions initiated safety checks 15 Minute Checks Cognitive Assessment , Head to toe Assessment , Medications. Response: After interactions and interventions patient responded in the following manner, Withdrawn , disorganized ,Resistive. Continue to assess behaviors and condition will continue to monitor throughout the shift as needed. Patient educated on ADL's, and hand hygiene. 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 Continue to assess patient for changes in above assessment. Monitor for medication needs, pain, and safety concerns. Hourly rounding performed to ensure safe environment.
--- NOTE | 2018-05-29 09:00 | NUR ---
WEEKLY ACTIVITY THERAPY NOTE Date of Admission: 05/15/2018, Prev. Admit: 12/19/2017 Date of AT Assessment: 05/18/2018 Goal aimed: to increase engagement and socialization: Initial goal: Pt. will participate in at least three individual or (Activity Therapy) groups per week. Weekly progress towards goal: did not meet Group participation level: zero to minimal Behaviors observed: disengaged and negative comments most of the time, enjoyed cookie decorating Saturday, doesn't want to be talked to or bothered Plan: no change to goal
--- NOTE | 2018-05-29 09:54 | NUR ---
WEEKLY NOTE: Pt is eating and sleeping well. Pt has poor group participation; however, is compliant with staff and medications. Pt is pleasant and does not like being bothered by her peers. Pt facility would like for her to be considered for a level II placement. Pt will return to [facility] to which they can start the process at that time.
--- NOTE | 2018-05-29 14:10 | NUR ---
PATTI attempted to contact pt son, Kaushik, and left a message for him to contact PATTI back. PATTI contacted Alice at [facility] to discuss the idea of pt being placed in a residential home versus a facility. PATTI logic is that pt has a harder time with those who are loud and intrusive. If she was in a home where there weren't so many people and less traffic, maybe her behaviors would be more manageable all around. PATTI will attempt to contact Kaushik on Saturday and will send options to Alice at [facility] so they can begin the process of looking for placement.
[2018-05-29 16:29] VITALS: BP 104/66
[2018-05-29] MEDS: CETIRIZINE HCL 10 MG TABLET PO SCH (19:18)
[2018-05-29] MEDS: ATORVASTATIN CALCIUM 10 MG TABLET. PO SCH (19:18)
[2018-05-29] MEDS: MIRTAZAPINE 15 MG TABLET PO SCH (19:19)
--- NOTE | 2018-05-29 20:00 | NUR ---
Behavior Intervention Response and Plan: BIRP Note: Behavior: Assumed Care of patient, patient located in Hallway at shift change. Patient exhibited the following behavior Compulsive, Disorganized, Irritable. Brief assessment on rounds of vital signs, medication needs, lab studies, and pain. Treatment plan problems . Intervention: Patient assessed and the following interventions initiated safety checks 15 Minute Checks Cognitive Assessment , Head to toe Assessment , Medications. Response: After interactions and interventions patient responded in the following manner, Drowsy , Calm ,Sleeping. Continue to assess behaviors and condition will continue to monitor throughout the shift as needed. Patient educated on ADL's, and hand hygiene. Plan: Continue to monitor Master Treatment Plan for patient's progress toward short term goals of Decreased Agitation, Decreased Anxiety, senior living goals to return to previous living setting vs placement. Continue to assess patient for changes in above assessment. Monitor for medication needs, pain, and safety concerns. Hourly rounding performed to ensure safe environment.
--- NOTE | 2018-05-29 22:26 | PDOC ---
Exam Note: David Note: Please also refer to the separate dictated note~for this date of service dictated separately.~Patient seen individually. Discussed the patient with Nursing staff reviewed the chart.~Reviewed interim history and current functioning. Reviewed vital signs,~Labs/ Radiology~and current medications noted below. Continue current treatment with the changes noted in the dictated addendum note Assessment: Vital Signs: Vital Signs Date Time Temp Pulse Resp B/P (MAP) Pulse Ox O2 Delivery O2 Flow Rate FiO2 05/29/18 16:29 97.9 88 16 104/66 (79) 96 05/29/18 09:27 Room Air I&O Intake and Output 05/29/18 07:00 Intake Total 960 ml Balance 960 ml Intake Oral 960 ml # Bowel Movements 1 Current Medications: Meds: Current Medications Haloperidol Lactate (Haldol) 5 mg 1X ONCE IM Last administered on 05/15/18at 00 :47; Start 05/15/18 at 01:00; Stop 05/15/18 at 01:01; Status DC Diphenhydramine HCl (Benadryl) 50 mg 1X ONCE IM Last administered on at 00:47; Start 05/15/18 at 01:00; Stop 05/15/18 at 01:01; Status DC Lorazepam (Ativan) 2 mg 1X ONCE IM Last administered on 05/15/18at 00:46; Start 05/15/18 at 00:30; Stop 05/15/18 at 00:51; Status DC Acetaminophen (Tylenol) 650 mg PRN Q4HRS PRN PO FEVER; Start 05/15/18 at 02:15 ; Stop 05/15/18 at 05:14; Status DC Acetaminophen (Tylenol) 650 mg PRN Q6HRS PRN PO PAIN / TEMP Last administered on 05/25/18at 16:45; Start 05/15/18 at 05:15 Calcium Carbonate/ Glycine (Oscal) 500 mg BIDWMEALS PO Last administered on at 17:32; Start 05/15/18 at 08:00 Vitamin D (Vitamin D3) 1,000 unit DAILY PO Last administered on 05/29/18at 08:08 ; Start 05/15/18 at 09:00 Felbamate (Felbatol) 400 mg TID PO Last administered on 05/29/18at 19:19; Start 05/15/18 at 09:00 Ferrous Sulfate (Feosol) 325 mg BIDAFTMEAL PO Last administered on 05/29/18at 17 :32; Start 05/15/18 at 09:00 Al Hydroxide/Mg Hydroxide (Mylanta Plus Xs) 15 ml PRN AFTMEALHC PRN PO DYSPEPSIA; Start 05/15/18 at 05:15 Multi-Ingredient Ointment (Analgesic [place]) 1 radha PRN QID PRN TP MUSCLE PAIN; Start 05/15/18 at 05:15 Senna/Docusate Sodium (Senna Plus) 1 tab PRN BID PRN PO CONSTIPATION; Start at 05:15; Stop 05/15/18 at 10:54; Status DC Tramadol HCl (Ultram) 50 mg PRN Q6HRS PRN PO PAIN; Start 05/15/18 at 05:15; Stop 05/15/18 at 10:54; Status DC Atorvastatin Calcium (Lipitor) 5 mg QHS PO ; Start 05/15/18 at 21:00; Stop 05/15 at 21:00; Status DC Bisacodyl (Dulcolax Supp) 10 mg PRN DAILY PRN [place] CONSTIPATION; Start 05/15/18 at 05:30 Divalproex Sodium (Depakote Sprinkles) 500 mg DAILY PO ; Start 05/15/18 at 09:00 ; Stop 05/15/18 at 10:54; Status DC Divalproex Sodium (Depakote Sprinkles) 750 mg QHS PO ; Start 05/15/18 at 21:00; Stop 05/15/18 at 21:00; Status DC Duloxetine HCl (Cymbalta) 60 mg DAILY PO ; Start 05/15/18 at 09:00; Stop at 10:54; Status DC Lacosamide (Vimpat) 200 mg BIDAFTMEAL PO ; Start 05/15/18 at 09:00; Stop at 09:00; Status DC Levetiracetam (Keppra) 750 mg BIDAFTMEAL PO ; Start 05/15/18 at 09:00; Stop at 09:00; Status DC Levothyroxine Sodium (Synthroid) 50 mcg DAILY06 PO ; Start 05/15/18 at 06:00; Stop 05/15/18 at 06:00; Status DC Magnesium Hydroxide (Milk Of Magnesia) 2,400 mg PRN QHS PRN PO CONSTIPATION; Start 05/15/18 at 05:30 Magnesium Oxide (Magnesium Oxide) 400 mg TID PO Last administered on 05/29/18at 19:19; Start 05/15/18 at 09:00 Pantoprazole Sodium (Protonix) 40 mg BIDBFRMEAL PO ; Start 05/15/18 at 07:30; Stop 05/15/18 at 07:41; Status DC Phenobarbital (Luminal) 64.8 mg QHS PO ; Start 05/15/18 at 21:00; Stop 05/15/18 at 21:00; Status DC Polyethylene Glycol (miraLAX) 17 gm PRN DAILY PRN PO CONSTIPATION; Start at 09:00; Stop 05/15/18 at 10:54; Status DC Quetiapine Fumarate (SEROquel) 12.5 mg QID PO ; Start 05/15/18 at 09:00; Stop at 10:54; Status DC Trazodone HCl (Desyrel) 50 mg PRN QHS PRN PO INSOMNIA, MAY REPEAT X1; Start at 05:30 Multi-Ingredient Ointment (Analgesic [place]) 1 radha PRN QID PRN TP MUSCLE PAIN; Start 05/15/18 at 05:45; Status UNV Al Hydroxide/Mg Hydroxide (Mylanta Plus Xs) 15 ml PRN AFTMEALHC PRN PO DYSPEPSIA; Start 05/15/18 at 05:45; Status UNV Magnesium Hydroxide (Milk Of Magnesia) 2,400 mg PRN QHS PRN PO CONSTIPATION; Start 05/15/18 at 05:45; Status UNV Levetiracetam (Keppra) 500 mg BID PO Last administered on 05/29/18at 19:18; Start 05/15/18 at 09:00 Levothyroxine Sodium (Synthroid) 75 mcg DAILY06 PO Last administered on at 05:08; Start 05/16/18 at 06:00 Pantoprazole Sodium (Protonix) 20 mg BIDBFRMEAL PO ; Start 05/15/18 at 16:30; Stop 05/15/18 at 16:30; Status DC Phenobarbital (Luminal) 64.8 mg BID PO Last administered on 05/29/18at 19:20; Start 05/15/18 at 09:00 Cetirizine HCl (ZyrTEC) 10 mg HS PO Last administered on 05/29/18at 19:18; Start 05/15/18 at 21:00 Multi-Ingred Cream/Lotion/Oil/ Oint (Hydrocerin) 1 radha PRN Q12HR PRN TP DRY SKIN / SCALING; Start 05/15/18 at 07:30 Guaifenesin (Guaifenesin) 100 mg PRN Q4HRS PRN PO COUGH; Start 05/15/18 at 07: 30; Stop 05/15/18 at 10:54; Status DC Ibuprofen (Motrin) 400 mg PRN Q4HRS PRN PO INFLAMMATION; Start 05/15/18 at 07: 30; Stop 05/15/18 at 11:10; Status DC Olanzapine (ZyPREXA) 5 mg BID PO Last administered on 05/29/18at 08:06; Start at 09:00 Mirtazapine (Remeron) 15 mg QHS PO Last administered on 05/29/18at 19:19; Start 05/15/18 at 21:00 Tramadol HCl (Ultram) 50 mg PRN Q8HRS PRN PO PAIN; Start 05/15/18 at 07:30 Tramadol HCl (Ultram) 50 mg BID PRN PO PAIN; Start 05/15/18 at 07:30; Stop at 10:54; Status DC Lacosamide (Vimpat) 200 mg BID PO Last administered on 05/29/18at 08:05; Start 05/15/18 at 09:00 Calcium Carbonate/ Glycine (Oscal) 500 mg BID PO ; Start 05/15/18 at 21:00; Stop 05/15/18 at 21:00; Status DC Guaifenesin (Robitussin) 100 mg PRN Q4HRS PRN PO COUGH; Start 05/15/18 at 10:30 Ibuprofen (Motrin) 400 mg PRN Q4HRS PRN PO PAIN Last administered on 05/27/18at 12:17; Start 05/15/18 at 10:30 Multi-Ingred Cream/Lotion/Oil/ Oint (Hydrocerin) 120 radha PRN Q12HR PRN TP dry skin; Start 05/15/18 at 10:30; Stop 05/15/18 at 11:07; Status DC Tramadol HCl (Ultram) 50 mg BID PRN PO PAIN; Start 05/15/18 at 10:30; Stop at 13:43; Status DC Tramadol HCl (Ultram) 50 mg PRN Q8HRS PRN PO PAIN; Start 05/15/18 at 10:30; Stop 05/15/18 at 11:25; Status DC Non-Formulary Medication (Cetirizine Hcl ) 10 mg QHS PO ; Start 05/15/18 at 21: 00; Stop 05/15/18 at 21:00; Status DC Non-Formulary Medication (Mirtazapine (Remeron)) 15 mg QHS PO ; Start 05/15/18 at 21:00; Stop 05/15/18 at 21:00; Status DC Non-Formulary Medication (Olanzapine ) 5 mg BID PO ; Start 05/15/18 at 21:00; Stop 05/15/18 at 21:00; Status DC Atorvastatin Calcium (Lipitor) 10 mg QHS PO Last administered on 05/29/18at 19: 18; Start 05/15/18 at 21:00 Tramadol HCl (Ultram) 50 mg BID PO Last administered on 05/29/18at 19:19; Start 05/15/18 at 21:00 Pantoprazole Sodium (Protonix) 40 mg DAILYAC PO Last administered on 05/29/18at 08:09; Start 05/15/18 at 11:30 Buspirone HCl (Buspar) 5 mg BIDWBKFT/JIN PO Last administered on 05/19/18at 12:22 ; Start 05/16/18 at 17:00; Stop 05/19/18 at 16:26; Status DC Buspirone HCl (Buspar) 10 mg BIDWBKFT/JIN PO ; Start 05/20/18 at 08:00; Stop 05/20 at 08:29; Status DC Buspirone HCl (Buspar) 10 mg BIDWBKFT/JIN PO Last administered on 05/22/18at 12: 00; Start 05/20/18 at 08:30; Stop 05/22/18 at 21:00; Status DC Buspirone HCl (Buspar) 15 mg BIDACBL PO Last administered on 05/23/18at 11:58; Start 05/23/18 at 07:30; Stop 05/23/18 at 18:46; Status DC Buspirone HCl (Buspar) 15 mg 0900,1700 PO Last administered on 05/29/18at 17:32 ; Start 05/24/18 at 09:00 Active Scripts Active Reported Tramadol Hcl (Tramadol HCl) 50 Mg Tablet 50 Mg PO BID PRN Tramadol Hcl (Tramadol HCl) 50 Mg Tablet 50 Mg PO PRN Q8HRS PRN Remeron (Mirtazapine) 15 Mg Tablet 15 Mg PO QHS Olanzapine 5 Mg Tablet 5 Mg PO BID Ibuprofen 400 Mg Tablet 400 Mg PO PRN Q4HRS PRN Guaifenesin 100 Mg/5 Ml Liquid 5 Ml PO PRN Q4HRS PRN Eucerin Creme (Mineral Oil/Petrolatum,White) 120 Gm Cream..g. 120 Gm TP PRN Q12HR PRN Cetirizine Hcl 10 Mg Tablet 10 Mg PO QHS Calcium Carbonate 500 Mg Tablet 500 Mg PO BID Levothyroxine Sodium 50 Mcg Tablet 75 Mcg PO DAILY06 Analgesic [place] (Methyl Salicylate/Menthol) 28 Gm Oint...g. 1 Radha TP PRN QID PRN Mag-Al Plus Xs Suspension (Mag Hydrox/Al Hydrox/Simeth) 30 Ml Oral.susp 15 Ml PO PRN AFTMEALHC PRN Vimpat (Lacosamide) 200 Mg Tablet 200 Mg PO BID Milk Of Magnesia (Magnesium Hydroxide) 2,400 Mg/10 Ml Oral.susp 2,400 Mg PO PRN QHS PRN Atorvastatin Calcium 10 Mg Tablet 10 Mg PO QHS Pantoprazole Sodium 40 Mg Tablet.dr 20 Mg PO BIDBFRMEAL Vitamin D3 (Cholecalciferol (Vitamin D3)) 1,000 Unit Tablet 1,000 Unit PO DAILY Phenobarbital 64.8 Mg Tablet 64.8 Mg PO BID Magnesium Oxide 400 Mg Tablet 400 Mg PO TID Tylenol (Acetaminophen) 325 Mg Tablet 650 Mg PO PRN Q6HRS PRN Keppra (Levetiracetam) 250 Mg Tablet 500 Mg PO BID Ferrous Sulfate 325 Mg Tablet 325 Mg PO BIDAFTMEAL Bisacodyl 10 Mg Supp.rect 10 Mg RC PRN DAILY PRN Felbamate 400 Mg Tablet 400 Mg PO TID I have reviewed the current psychotropics carefully including drug interactions. Risk benefit ratio favors no change other than as noted in my dictated progress note. Diagnosis: Problems: (1) Functional diarrhea (2) urinary tract infection (3) Left hip arthroplasty (4) Severe major depression with psychotic features (5) Adjustment disorder with depressed mood (6) Bipolar affective, mixed (7) Impulse control disorder (8) Dementia, vascular, with delusions (9) Dementia, vascular, with depression HARVEY QUIJAON MD May 29, 2018 22:26
[2018-05-30] MEDS: LEVOTHYROXINE 75 MCG TABLET PO SCH (05:18)
[2018-05-30 06:13] VITALS: BP 108/67
[2018-05-30] MEDS: PHENobarbital 32.4 MG TABLET. PO SCH ×2 (07:51→19:28)
[2018-05-30] MEDS: CALCIUM CARBONATE 500 MG TABLET PO SCH ×2 (07:51→17:00)
[2018-05-30] MEDS: PANTOPRAZOLE 40 MG TABLET. PO SCH (07:51)
[2018-05-30] MEDS: MAGNESIUM OXIDE 400 MG TABLET PO SCH ×3 (07:51→19:28)
[2018-05-30] MEDS: levETIRAcetam 500 MG TABLET PO SCH ×2 (07:51→19:29)
[2018-05-30] MEDS: CHOLECALCIFEROL (VITAMIN D3) 1,000 UNIT TABLET PO SCH (07:51)
[2018-05-30] MEDS: LACOSAMIDE 50 MG TABLET PO SCH ×2 (07:51→19:28)
[2018-05-30] MEDS: busPIRone 15 MG TABLET. PO SCH ×2 (07:51→17:41)
[2018-05-30] MEDS: FERROUS SULFATE 325 MG TABLET. PO SCH ×2 (07:51→17:41)
[2018-05-30] MEDS: traMADol 50 MG TABLET PO SCH ×2 (07:51→19:28)
[2018-05-30] MEDS: OLANZapine 5 MG TABLET PO SCH ×2 (07:51→19:28)
[2018-05-30] MEDS: FELBAMATE 400 MG TABLET PO SCH ×3 (07:52→19:28)
--- NOTE | 2018-05-30 09:52 | NUR ---
Behavior Intervention Response and Plan: BIRP Note: Behavior: Assumed Care of patient, patient located in Dining Room at shift change. Patient exhibited the following behavior Disorganized, Irritable, Compliant. Brief assessment on rounds of vital signs, medication needs, lab studies, and pain. Treatment plan problems . Intervention: Patient assessed and the following interventions initiated safety checks 15 Minute Checks Cognitive Assessment , Head to toe Assessment , Medications. Response: After interactions and interventions patient responded in the following manner, Calm , Disorganized ,Irritable. Continue to assess behaviors and condition will continue to monitor throughout the shift as needed. Patient educated on ADL's, and hand hygiene. Plan: Continue to monitor Master Treatment Plan for patient's progress toward short term goals of Decreased Agitation, Decreased Aggression, occupational nurse goals to return to previous living setting vs placement. Continue to assess patient for changes in above assessment. Monitor for medication needs, pain, and safety concerns. Hourly rounding performed to ensure safe environment.
[2018-05-30 16:28] VITALS: BP 111/78
--- NOTE | 2018-05-30 17:47 | NUR ---
pt up in [facility] for meals and out to day room. c/o meds and cares. sarcastic at times.
[2018-05-30] MEDS: CETIRIZINE HCL 10 MG TABLET PO SCH (19:28)
[2018-05-30] MEDS: ATORVASTATIN CALCIUM 10 MG TABLET. PO SCH (19:28)
[2018-05-30] MEDS: MIRTAZAPINE 15 MG TABLET PO SCH (19:29)
--- NOTE | 2018-05-30 22:32 | PDOC ---
Exam Note: David Note: Please also refer to the separate dictated note~for this date of service dictated separately.~Patient seen individually. Discussed the patient with Nursing staff reviewed the chart.~Reviewed interim history and current functioning. Reviewed vital signs,~Labs/ Radiology~and current medications noted below. Continue current treatment with the changes noted in the dictated addendum note Assessment: Vital Signs: Vital Signs Date Time Temp Pulse Resp B/P (MAP) Pulse Ox O2 Delivery O2 Flow Rate FiO2 05/30/18 20:28 97 05/30/18 16:28 97.8 70 20 111/78 (89) Room Air I&O Intake and Output 05/30/18 07:00 Intake Total 965 ml Balance 965 ml Intake Oral 965 ml Current Medications: Meds: Current Medications Haloperidol Lactate (Haldol) 5 mg 1X ONCE IM Last administered on 05/15/18at 00 :47; Start 05/15/18 at 01:00; Stop 05/15/18 at 01:01; Status DC Diphenhydramine HCl (Benadryl) 50 mg 1X ONCE IM Last administered on at 00:47; Start 05/15/18 at 01:00; Stop 05/15/18 at 01:01; Status DC Lorazepam (Ativan) 2 mg 1X ONCE IM Last administered on 05/15/18at 00:46; Start 05/15/18 at 00:30; Stop 05/15/18 at 00:51; Status DC Acetaminophen (Tylenol) 650 mg PRN Q4HRS PRN PO FEVER; Start 05/15/18 at 02:15 ; Stop 05/15/18 at 05:14; Status DC Acetaminophen (Tylenol) 650 mg PRN Q6HRS PRN PO PAIN / TEMP Last administered on 05/25/18at 16:45; Start 05/15/18 at 05:15 Calcium Carbonate/ Glycine (Oscal) 500 mg BIDWMEALS PO Last administered on 17:00; Start 05/15/18 at 08:00 Vitamin D (Vitamin D3) 1,000 unit DAILY PO Last administered on 05/30/18at 07:51 ; Start 05/15/18 at 09:00 Felbamate (Felbatol) 400 mg TID PO Last administered on 2/15/19at 19:28; Start 05/15/18 at 09:00 Ferrous Sulfate (Feosol) 325 mg BIDAFTMEAL PO Last administered on 05/30/18at 17 :41; Start 05/15/18 at 09:00 Al Hydroxide/Mg Hydroxide (Mylanta Plus Xs) 15 ml PRN AFTMEALHC PRN PO DYSPEPSIA; Start 05/15/18 at 05:15 Multi-Ingredient Ointment (Analgesic [place]) 1 radha PRN QID PRN TP MUSCLE PAIN; Start 05/15/18 at 05:15 Senna/Docusate Sodium (Senna Plus) 1 tab PRN BID PRN PO CONSTIPATION; Start at 05:15; Stop 05/15/18 at 10:54; Status DC Tramadol HCl (Ultram) 50 mg PRN Q6HRS PRN PO PAIN; Start 05/15/18 at 05:15; Stop 05/15/18 at 10:54; Status DC Atorvastatin Calcium (Lipitor) 5 mg QHS PO ; Start 05/15/18 at 21:00; Stop 05/15 at 21:00; Status DC Bisacodyl (Dulcolax Supp) 10 mg PRN DAILY PRN [place] CONSTIPATION; Start 05/15/18 at 05:30 Divalproex Sodium (Depakote Sprinkles) 500 mg DAILY PO ; Start 05/15/18 at 09:00 ; Stop 05/15/18 at 10:54; Status DC Divalproex Sodium (Depakote Sprinkles) 750 mg QHS PO ; Start 05/15/18 at 21:00; Stop 05/15/18 at 21:00; Status DC Duloxetine HCl (Cymbalta) 60 mg DAILY PO ; Start 05/15/18 at 09:00; Stop at 10:54; Status DC Lacosamide (Vimpat) 200 mg BIDAFTMEAL PO ; Start 05/15/18 at 09:00; Stop at 09:00; Status DC Levetiracetam (Keppra) 750 mg BIDAFTMEAL PO ; Start 05/15/18 at 09:00; Stop at 09:00; Status DC Levothyroxine Sodium (Synthroid) 50 mcg DAILY06 PO ; Start 05/15/18 at 06:00; Stop 05/15/18 at 06:00; Status DC Magnesium Hydroxide (Milk Of Magnesia) 2,400 mg PRN QHS PRN PO CONSTIPATION; Start 05/15/18 at 05:30 Magnesium Oxide (Magnesium Oxide) 400 mg TID PO Last administered on 05/30/18at 19:28; Start 05/15/18 at 09:00 Pantoprazole Sodium (Protonix) 40 mg BIDBFRMEAL PO ; Start 05/15/18 at 07:30; Stop 05/15/18 at 07:41; Status DC Phenobarbital (Luminal) 64.8 mg QHS PO ; Start 05/15/18 at 21:00; Stop 05/15/18 at 21:00; Status DC Polyethylene Glycol (miraLAX) 17 gm PRN DAILY PRN PO CONSTIPATION; Start at 09:00; Stop 05/15/18 at 10:54; Status DC Quetiapine Fumarate (SEROquel) 12.5 mg QID PO ; Start 05/15/18 at 09:00; Stop at 10:54; Status DC Trazodone HCl (Desyrel) 50 mg PRN QHS PRN PO INSOMNIA, MAY REPEAT X1; Start at 05:30 Multi-Ingredient Ointment (Analgesic [place]) 1 radha PRN QID PRN TP MUSCLE PAIN; Start 05/15/18 at 05:45; Status UNV Al Hydroxide/Mg Hydroxide (Mylanta Plus Xs) 15 ml PRN AFTMEALHC PRN PO DYSPEPSIA; Start 05/15/18 at 05:45; Status UNV Magnesium Hydroxide (Milk Of Magnesia) 2,400 mg PRN QHS PRN PO CONSTIPATION; Start 05/15/18 at 05:45; Status UNV Levetiracetam (Keppra) 500 mg BID PO Last administered on 05/30/18at 19:29; Start 05/15/18 at 09:00 Levothyroxine Sodium (Synthroid) 75 mcg DAILY06 PO Last administered on at 05:18; Start 05/16/18 at 06:00 Pantoprazole Sodium (Protonix) 20 mg BIDBFRMEAL PO ; Start 05/15/18 at 16:30; Stop 05/15/18 at 16:30; Status DC Phenobarbital (Luminal) 64.8 mg BID PO Last administered on 05/30/18 19:28; Start 05/15/18 at 09:00 Cetirizine HCl (ZyrTEC) 10 mg HS PO Last administered on 05/30/18at 19:28; Start 05/15/18 at 21:00 Multi-Ingred Cream/Lotion/Oil/ Oint (Hydrocerin) 1 radha PRN Q12HR PRN TP DRY SKIN / SCALING; Start 05/15/18 at 07:30 Guaifenesin (Guaifenesin) 100 mg PRN Q4HRS PRN PO COUGH; Start 05/15/18 at 07: 30; Stop 05/15/18 at 10:54; Status DC Ibuprofen (Motrin) 400 mg PRN Q4HRS PRN PO INFLAMMATION; Start 05/15/18 at 07: 30; Stop 05/15/18 at 11:10; Status DC Olanzapine (ZyPREXA) 5 mg BID PO Last administered on 05/30/18at 19:28; Start at 09:00 Mirtazapine (Remeron) 15 mg QHS PO Last administered on 05/30/18at 19:29; Start 05/15/18 at 21:00 Tramadol HCl (Ultram) 50 mg PRN Q8HRS PRN PO PAIN; Start 05/15/18 at 07:30 Tramadol HCl (Ultram) 50 mg BID PRN PO PAIN; Start 05/15/18 at 07:30; Stop at 10:54; Status DC Lacosamide (Vimpat) 200 mg BID PO Last administered on 05/30/18at 19:28; Start 05/15/18 at 09:00 Calcium Carbonate/ Glycine (Oscal) 500 mg BID PO ; Start 05/15/18 at 21:00; Stop 05/15/18 at 21:00; Status DC Guaifenesin (Robitussin) 100 mg PRN Q4HRS PRN PO COUGH; Start 05/15/18 at 10:30 Ibuprofen (Motrin) 400 mg PRN Q4HRS PRN PO PAIN Last administered on 05/27/18at 12:17; Start 05/15/18 at 10:30 Multi-Ingred Cream/Lotion/Oil/ Oint (Hydrocerin) 120 radha PRN Q12HR PRN TP dry skin; Start 05/15/18 at 10:30; Stop 05/15/18 at 11:07; Status DC Tramadol HCl (Ultram) 50 mg BID PRN PO PAIN; Start 05/15/18 at 10:30; Stop at 13:43; Status DC Tramadol HCl (Ultram) 50 mg PRN Q8HRS PRN PO PAIN; Start 05/15/18 at 10:30; Stop 05/15/18 at 11:25; Status DC Non-Formulary Medication (Cetirizine Hcl ) 10 mg QHS PO ; Start 05/15/18 at 21: 00; Stop 05/15/18 at 21:00; Status DC Non-Formulary Medication (Mirtazapine (Remeron)) 15 mg QHS PO ; Start 05/15/18 at 21:00; Stop 05/15/18 at 21:00; Status DC Non-Formulary Medication (Olanzapine ) 5 mg BID PO ; Start 05/15/18 at 21:00; Stop 05/15/18 at 21:00; Status DC Atorvastatin Calcium (Lipitor) 10 mg QHS PO Last administered on 05/30/18at 19: 28; Start 05/15/18 at 21:00 Tramadol HCl (Ultram) 50 mg BID PO Last administered on 05/30/18at 19:28; Start 05/15/18 at 21:00 Pantoprazole Sodium (Protonix) 40 mg DAILYAC PO Last administered on 05/30/18at 07:51; Start 05/15/18 at 11:30 Buspirone HCl (Buspar) 5 mg BIDWBKFT/JIN PO Last administered on 05/19/18at 12:22 ; Start 05/16/18 at 17:00; Stop 05/19/18 at 16:26; Status DC Buspirone HCl (Buspar) 10 mg BIDWBKFT/JIN PO ; Start 05/20/18 at 08:00; Stop 05/20 at 08:29; Status DC Buspirone HCl (Buspar) 10 mg BIDWBKFT/JIN PO Last administered on 05/22/18at 12: 00; Start 05/20/18 at 08:30; Stop 05/22/18 at 21:00; Status DC Buspirone HCl (Buspar) 15 mg BIDACBL PO Last administered on 05/23/18at 11:58; Start 05/23/18 at 07:30; Stop 05/23/18 at 18:46; Status DC Buspirone HCl (Buspar) 15 mg 0900,1700 PO Last administered on 05/30/18at 17:41 ; Start 05/24/18 at 09:00 Active Scripts Active Reported Tramadol Hcl (Tramadol HCl) 50 Mg Tablet 50 Mg PO BID PRN Tramadol Hcl (Tramadol HCl) 50 Mg Tablet 50 Mg PO PRN Q8HRS PRN Remeron (Mirtazapine) 15 Mg Tablet 15 Mg PO QHS Olanzapine 5 Mg Tablet 5 Mg PO BID Ibuprofen 400 Mg Tablet 400 Mg PO PRN Q4HRS PRN Guaifenesin 100 Mg/5 Ml Liquid 5 Ml PO PRN Q4HRS PRN Eucerin Creme (Mineral Oil/Petrolatum,White) 120 Gm Cream..g. 120 Gm TP PRN Q12HR PRN Cetirizine Hcl 10 Mg Tablet 10 Mg PO QHS Calcium Carbonate 500 Mg Tablet 500 Mg PO BID Levothyroxine Sodium 50 Mcg Tablet 75 Mcg PO DAILY06 Analgesic [place] (Methyl Salicylate/Menthol) 28 Gm Oint...g. 1 Radha TP PRN QID PRN Mag-Al Plus Xs Suspension (Mag Hydrox/Al Hydrox/Simeth) 30 Ml Oral.susp 15 Ml PO PRN AFTMEALHC PRN Vimpat (Lacosamide) 200 Mg Tablet 200 Mg PO BID Milk Of Magnesia (Magnesium Hydroxide) 2,400 Mg/10 Ml Oral.susp 2,400 Mg PO PRN QHS PRN Atorvastatin Calcium 10 Mg Tablet 10 Mg PO QHS Pantoprazole Sodium 40 Mg Tablet.dr 20 Mg PO BIDBFRMEAL Vitamin D3 (Cholecalciferol (Vitamin D3)) 1,000 Unit Tablet 1,000 Unit PO DAILY Phenobarbital 64.8 Mg Tablet 64.8 Mg PO BID Magnesium Oxide 400 Mg Tablet 400 Mg PO TID Tylenol (Acetaminophen) 325 Mg Tablet 650 Mg PO PRN Q6HRS PRN Keppra (Levetiracetam) 250 Mg Tablet 500 Mg PO BID Ferrous Sulfate 325 Mg Tablet 325 Mg PO BIDAFTMEAL Bisacodyl 10 Mg Supp.rect 10 Mg RC PRN DAILY PRN Felbamate 400 Mg Tablet 400 Mg PO TID I have reviewed the current psychotropics carefully including drug interactions. Risk benefit ratio favors no change other than as noted in my dictated progress note. Diagnosis: Problems: (1) Functional diarrhea (2) urinary tract infection (3) Left hip arthroplasty (4) Severe major depression with psychotic features (5) Adjustment disorder with depressed mood (6) Bipolar affective, mixed (7) Impulse control disorder (8) Dementia, vascular, with delusions (9) Dementia, vascular, with depression HARVEY QUIJANO MD May 30, 2018 22:32
--- NOTE | 2018-05-31 00:17 | PN ---
DATE: 05/28/2018 This late entry for 05/28/2018 covers elements not covered in my initial note. SUBJECTIVE: I met with the patient in the evening. The patient slept 7-3/4 hours previous evening. She has been attention-seeking, resistive to medications, somewhat isolative and I met with her at some length in her room. She is withdrawn, works on her puzzles. REVIEW OF SYSTEMS: Ambulation impaired, in wheelchair. No CV, , pulmonary, eye system symptoms on review. MENTAL STATUS EXAM: Oriented to herself and situation. Speech moderate latency, often responses monosyllabic. Abstraction fair, computation impaired, language function intact. Mood and affect somewhat withdrawn. LABORATORY DATA: Reviewed. IMPRESSION: Unchanged from initial note. PLAN: No change from initial note. MAN Luis QUIJANO MD DR: LOYD/eboni JOB#: [id number] / [id number]
--- NOTE | 2018-05-31 00:49 | PN ---
DATE: 05/29/2018 PSYCHIATRIC PROGRESS NOTE This late entry 05/29/2018 covers elements not covered in my initial note. SUBJECTIVE: I met with the patient in the evening and staffed at treatment team meeting earlier in the day. The patient has had no behavior problems. Slept 8-1/2 hours previous night. She remains isolative, withdrawn, somewhat paranoid, dismissive of any problems she has had. REVIEW OF SYSTEMS: Ambulation impaired, in wheelchair. No CV, , pulmonary, eye system symptoms on review. MENTAL STATUS EXAM: Oriented to herself and situation. Speech has some latency, low in rate and rhythm, low in volume. Abstraction fair, computation impaired, language function intact, attention span short. Mood and affect are somewhat withdrawn, less paranoid. She at times makes bizarre statements and she told nursing staff "I like people who have seizures." LABORATORY DATA: Reviewed. IMPRESSION: Unchanged from initial note. PLAN: No change from initial note. HARVEY QUIJANO MD DR: LOYD/eboni JOB#: [id number] / [id number]
--- NOTE | 2018-05-31 01:44 | NUR ---
Pt sitting quietly in the day room at shift change. Pt calm, pleasant this evening. Pt cooperative and compliant with medications and assessment. After medications given, pt sat quietly at the table in the day room working on a puzzle.
[2018-05-31] MEDS: LEVOTHYROXINE 75 MCG TABLET PO SCH (06:25)
[2018-05-31 06:39] VITALS: BP 122/83
[2018-05-31] MEDS: FELBAMATE 400 MG TABLET PO SCH ×3 (08:04→19:39)
[2018-05-31] MEDS: CHOLECALCIFEROL (VITAMIN D3) 1,000 UNIT TABLET PO SCH (08:04)
[2018-05-31] MEDS: MAGNESIUM OXIDE 400 MG TABLET PO SCH ×3 (08:05→19:39)
[2018-05-31] MEDS: CALCIUM CARBONATE 500 MG TABLET PO SCH ×2 (08:05→18:05)
[2018-05-31] MEDS: PANTOPRAZOLE 40 MG TABLET. PO SCH (08:05)
[2018-05-31] MEDS: OLANZapine 5 MG TABLET PO SCH ×2 (08:05→19:38)
[2018-05-31] MEDS: busPIRone 15 MG TABLET. PO SCH ×2 (08:05→18:05)
[2018-05-31] MEDS: levETIRAcetam 500 MG TABLET PO SCH ×2 (08:05→19:38)
[2018-05-31] MEDS: FERROUS SULFATE 325 MG TABLET. PO SCH ×2 (08:05→18:05)
[2018-05-31] MEDS: PHENobarbital 32.4 MG TABLET. PO SCH ×2 (08:07→19:38)
[2018-05-31] MEDS: traMADol 50 MG TABLET PO SCH ×2 (08:10→19:39)
[2018-05-31] MEDS: LACOSAMIDE 50 MG TABLET PO SCH ×2 (08:11→19:39)
--- NOTE | 2018-05-31 09:58 | NUR ---
Behavior Intervention Response and Plan: BIRP Note: Behavior: Assumed Care of patient, patient located in Dining Room at shift change. Patient exhibited the following behavior Disorganized, Irritable, Compliant. Brief assessment on rounds of vital signs, medication needs, lab studies, and pain. Treatment plan problems . Intervention: Patient assessed and the following interventions initiated safety checks 15 Minute Checks Cognitive Assessment , Head to toe Assessment , Medications. Response: After interactions and interventions patient responded in the following manner, Calm , Disorganized ,Irritable. Continue to assess behaviors and condition will continue to monitor throughout the shift as needed. Patient educated on ADL's, and hand hygiene. Plan: Continue to monitor Master Treatment Plan for patient's progress toward short term goals of Decreased Agitation, Decreased Aggression, silverware etcher goals to return to previous living setting vs placement. Continue to assess patient for changes in above assessment. Monitor for medication needs, pain, and safety concerns. Hourly rounding performed to ensure safe environment.
[2018-05-31 16:01] VITALS: BP 107/74
--- NOTE | 2018-05-31 18:18 | NUR ---
pt up in [place] for meals. wanders in halls. sarcastic but compliant with meds and cares.
[2018-05-31] MEDS: CETIRIZINE HCL 10 MG TABLET PO SCH (19:38)
[2018-05-31] MEDS: ATORVASTATIN CALCIUM 10 MG TABLET. PO SCH (19:38)
[2018-05-31] MEDS: MIRTAZAPINE 15 MG TABLET PO SCH (19:38)
--- NOTE | 2018-05-31 21:45 | PDOC ---
Exam Note: David Note: Please also refer to the separate dictated note~for this date of service dictated separately.~Patient seen individually. Discussed the patient with Nursing staff reviewed the chart.~Reviewed interim history and current functioning. Reviewed vital signs,~Labs/ Radiology~and current medications noted below. Continue current treatment with the changes noted in the dictated addendum note Assessment: Vital Signs: Vital Signs Date Time Temp Pulse Resp B/P (MAP) Pulse Ox O2 Delivery O2 Flow Rate FiO2 05/31/18 20:39 97 05/31/18 16:01 98.4 81 18 107/74 (85) 05/30/18 16:28 Room Air I&O Intake and Output 05/31/18 07:00 Intake Total 605 ml Balance 605 ml Intake Oral 605 ml # Bowel Movements 1 Current Medications: Meds: Current Medications Haloperidol Lactate (Haldol) 5 mg 1X ONCE IM Last administered on 05/15/18at 00 :47; Start 05/15/18 at 01:00; Stop 05/15/18 at 01:01; Status DC Diphenhydramine HCl (Benadryl) 50 mg 1X ONCE IM Last administered on at 00:47; Start 05/15/18 at 01:00; Stop 05/15/18 at 01:01; Status DC Lorazepam (Ativan) 2 mg 1X ONCE IM Last administered on 05/15/18at 00:46; Start 05/15/18 at 00:30; Stop 05/15/18 at 00:51; Status DC Acetaminophen (Tylenol) 650 mg PRN Q4HRS PRN PO FEVER; Start 05/15/18 at 02:15 ; Stop 05/15/18 at 05:14; Status DC Acetaminophen (Tylenol) 650 mg PRN Q6HRS PRN PO PAIN / TEMP Last administered on 05/25/18at 16:45; Start 05/15/18 at 05:15 Calcium Carbonate/ Glycine (Oscal) 500 mg BIDWMEALS PO Last administered on at 18:05; Start 05/15/18 at 08:00 Vitamin D (Vitamin D3) 1,000 unit DAILY PO Last administered on 05/31/18at 08:04 ; Start 05/15/18 at 09:00 Felbamate (Felbatol) 400 mg TID PO Last administered on 05/31/18at 19:39; Start 05/15/18 at 09:00 Ferrous Sulfate (Feosol) 325 mg BIDAFTMEAL PO Last administered on 05/31/18at 18 :05; Start 05/15/18 at 09:00 Al Hydroxide/Mg Hydroxide (Mylanta Plus Xs) 15 ml PRN AFTMEALHC PRN PO DYSPEPSIA; Start 05/15/18 at 05:15 Multi-Ingredient Ointment (Analgesic [place]) 1 radha PRN QID PRN TP MUSCLE PAIN; Start 05/15/18 at 05:15 Senna/Docusate Sodium (Senna Plus) 1 tab PRN BID PRN PO CONSTIPATION; Start at 05:15; Stop 05/15/18 at 10:54; Status DC Tramadol HCl (Ultram) 50 mg PRN Q6HRS PRN PO PAIN; Start 05/15/18 at 05:15; Stop 05/15/18 at 10:54; Status DC Atorvastatin Calcium (Lipitor) 5 mg QHS PO ; Start 05/15/18 at 21:00; Stop 05/15 at 21:00; Status DC Bisacodyl (Dulcolax Supp) 10 mg PRN DAILY PRN [place] CONSTIPATION; Start 05/15/18 at 05:30 Divalproex Sodium (Depakote Sprinkles) 500 mg DAILY PO ; Start 05/15/18 at 09:00 ; Stop 05/15/18 at 10:54; Status DC Divalproex Sodium (Depakote Sprinkles) 750 mg QHS PO ; Start 05/15/18 at 21:00; Stop 05/15/18 at 21:00; Status DC Duloxetine HCl (Cymbalta) 60 mg DAILY PO ; Start 05/15/18 at 09:00; Stop at 10:54; Status DC Lacosamide (Vimpat) 200 mg BIDAFTMEAL PO ; Start 05/15/18 at 09:00; Stop at 09:00; Status DC Levetiracetam (Keppra) 750 mg BIDAFTMEAL PO ; Start 05/15/18 at 09:00; Stop at 09:00; Status DC Levothyroxine Sodium (Synthroid) 50 mcg DAILY06 PO ; Start 05/15/18 at 06:00; Stop 05/15/18 at 06:00; Status DC Magnesium Hydroxide (Milk Of Magnesia) 2,400 mg PRN QHS PRN PO CONSTIPATION; Start 05/15/18 at 05:30 Magnesium Oxide (Magnesium Oxide) 400 mg TID PO Last administered on 05/31/18at 19:39; Start 05/15/18 at 09:00 Pantoprazole Sodium (Protonix) 40 mg BIDBFRMEAL PO ; Start 05/15/18 at 07:30; Stop 05/15/18 at 07:41; Status DC Phenobarbital (Luminal) 64.8 mg QHS PO ; Start 05/15/18 at 21:00; Stop 05/15/18 at 21:00; Status DC Polyethylene Glycol (miraLAX) 17 gm PRN DAILY PRN PO CONSTIPATION; Start at 09:00; Stop 05/15/18 at 10:54; Status DC Quetiapine Fumarate (SEROquel) 12.5 mg QID PO ; Start 05/15/18 at 09:00; Stop at 10:54; Status DC Trazodone HCl (Desyrel) 50 mg PRN QHS PRN PO INSOMNIA, MAY REPEAT X1; Start at 05:30 Multi-Ingredient Ointment (Analgesic [place]) 1 radha PRN QID PRN TP MUSCLE PAIN; Start 05/15/18 at 05:45; Status UNV Al Hydroxide/Mg Hydroxide (Mylanta Plus Xs) 15 ml PRN AFTMEALHC PRN PO DYSPEPSIA; Start 05/15/18 at 05:45; Status UNV Magnesium Hydroxide (Milk Of Magnesia) 2,400 mg PRN QHS PRN PO CONSTIPATION; Start 05/15/18 at 05:45; Status UNV Levetiracetam (Keppra) 500 mg BID PO Last administered on 05/31/18at 19:38; Start 05/15/18 at 09:00 Levothyroxine Sodium (Synthroid) 75 mcg DAILY06 PO Last administered on at 06:25; Start 05/16/18 at 06:00 Pantoprazole Sodium (Protonix) 20 mg BIDBFRMEAL PO ; Start 05/15/18 at 16:30; Stop 05/15/18 at 16:30; Status DC Phenobarbital (Luminal) 64.8 mg BID PO Last administered on 05/31/18at 19:38; Start 05/15/18 at 09:00 Cetirizine HCl (ZyrTEC) 10 mg HS PO Last administered on 05/31/18at 19:38; Start 05/15/18 at 21:00 Multi-Ingred Cream/Lotion/Oil/ Oint (Hydrocerin) 1 radha PRN Q12HR PRN TP DRY SKIN / SCALING; Start 05/15/18 at 07:30 Guaifenesin (Guaifenesin) 100 mg PRN Q4HRS PRN PO COUGH; Start 05/15/18 at 07: 30; Stop 05/15/18 at 10:54; Status DC Ibuprofen (Motrin) 400 mg PRN Q4HRS PRN PO INFLAMMATION; Start 05/15/18 at 07: 30; Stop 05/15/18 at 11:10; Status DC Olanzapine (ZyPREXA) 5 mg BID PO Last administered on 05/31/18at 19:38; Start at 09:00 Mirtazapine (Remeron) 15 mg QHS PO Last administered on 05/31/18 19:38; Start 05/15/18 at 21:00 Tramadol HCl (Ultram) 50 mg PRN Q8HRS PRN PO PAIN; Start 05/15/18 at 07:30 Tramadol HCl (Ultram) 50 mg BID PRN PO PAIN; Start 05/15/18 at 07:30; Stop at 10:54; Status DC Lacosamide (Vimpat) 200 mg BID PO Last administered on 05/31/18at 19:39; Start 05/15/18 at 09:00 Calcium Carbonate/ Glycine (Oscal) 500 mg BID PO ; Start 05/15/18 at 21:00; Stop 05/15/18 at 21:00; Status DC Guaifenesin (Robitussin) 100 mg PRN Q4HRS PRN PO COUGH; Start 05/15/18 at 10:30 Ibuprofen (Motrin) 400 mg PRN Q4HRS PRN PO PAIN Last administered on 05/27/18at 12:17; Start 05/15/18 at 10:30 Multi-Ingred Cream/Lotion/Oil/ Oint (Hydrocerin) 120 radha PRN Q12HR PRN TP dry skin; Start 05/15/18 at 10:30; Stop 05/15/18 at 11:07; Status DC Tramadol HCl (Ultram) 50 mg BID PRN PO PAIN; Start 05/15/18 at 10:30; Stop at 13:43; Status DC Tramadol HCl (Ultram) 50 mg PRN Q8HRS PRN PO PAIN; Start 05/15/18 at 10:30; Stop 05/15/18 at 11:25; Status DC Non-Formulary Medication (Cetirizine Hcl ) 10 mg QHS PO ; Start 05/15/18 at 21: 00; Stop 05/15/18 at 21:00; Status DC Non-Formulary Medication (Mirtazapine (Remeron)) 15 mg QHS PO ; Start 05/15/18 at 21:00; Stop 05/15/18 at 21:00; Status DC Non-Formulary Medication (Olanzapine ) 5 mg BID PO ; Start 05/15/18 at 21:00; Stop 05/15/18 at 21:00; Status DC Atorvastatin Calcium (Lipitor) 10 mg QHS PO Last administered on 05/31/18at 19: 38; Start 05/15/18 at 21:00 Tramadol HCl (Ultram) 50 mg BID PO Last administered on 05/31/18at 19:39; Start 05/15/18 at 21:00 Pantoprazole Sodium (Protonix) 40 mg DAILYAC PO Last administered on 05/31/18at 08:05; Start 05/15/18 at 11:30 Buspirone HCl (Buspar) 5 mg BIDWBKFT/JIN PO Last administered on 05/19/18at 12:22 ; Start 05/16/18 at 17:00; Stop 05/19/18 at 16:26; Status DC Buspirone HCl (Buspar) 10 mg BIDWBKFT/JIN PO ; Start 05/20/18 at 08:00; Stop 05/20 at 08:29; Status DC Buspirone HCl (Buspar) 10 mg BIDWBKFT/JIN PO Last administered on 05/22/18at 12: 00; Start 05/20/18 at 08:30; Stop 05/22/18 at 21:00; Status DC Buspirone HCl (Buspar) 15 mg BIDACBL PO Last administered on 05/23/18at 11:58; Start 05/23/18 at 07:30; Stop 05/23/18 at 18:46; Status DC Buspirone HCl (Buspar) 15 mg 0900,1700 PO Last administered on 05/31/18at 18:05 ; Start 05/24/18 at 09:00 Active Scripts Active Reported Tramadol Hcl (Tramadol HCl) 50 Mg Tablet 50 Mg PO BID PRN Tramadol Hcl (Tramadol HCl) 50 Mg Tablet 50 Mg PO PRN Q8HRS PRN Remeron (Mirtazapine) 15 Mg Tablet 15 Mg PO QHS Olanzapine 5 Mg Tablet 5 Mg PO BID Ibuprofen 400 Mg Tablet 400 Mg PO PRN Q4HRS PRN Guaifenesin 100 Mg/5 Ml Liquid 5 Ml PO PRN Q4HRS PRN Eucerin Creme (Mineral Oil/Petrolatum,White) 120 Gm Cream..g. 120 Gm TP PRN Q12HR PRN Cetirizine Hcl 10 Mg Tablet 10 Mg PO QHS Calcium Carbonate 500 Mg Tablet 500 Mg PO BID Levothyroxine Sodium 50 Mcg Tablet 75 Mcg PO DAILY06 Analgesic [place] (Methyl Salicylate/Menthol) 28 Gm Oint...g. 1 Radha TP PRN QID PRN Mag-Al Plus Xs Suspension (Mag Hydrox/Al Hydrox/Simeth) 30 Ml Oral.susp 15 Ml PO PRN AFTMEALHC PRN Vimpat (Lacosamide) 200 Mg Tablet 200 Mg PO BID Milk Of Magnesia (Magnesium Hydroxide) 2,400 Mg/10 Ml Oral.susp 2,400 Mg PO PRN QHS PRN Atorvastatin Calcium 10 Mg Tablet 10 Mg PO QHS Pantoprazole Sodium 40 Mg Tablet.dr 20 Mg PO BIDBFRMEAL Vitamin D3 (Cholecalciferol (Vitamin D3)) 1,000 Unit Tablet 1,000 Unit PO DAILY Phenobarbital 64.8 Mg Tablet 64.8 Mg PO BID Magnesium Oxide 400 Mg Tablet 400 Mg PO TID Tylenol (Acetaminophen) 325 Mg Tablet 650 Mg PO PRN Q6HRS PRN Keppra (Levetiracetam) 250 Mg Tablet 500 Mg PO BID Ferrous Sulfate 325 Mg Tablet 325 Mg PO BIDAFTMEAL Bisacodyl 10 Mg Supp.rect 10 Mg RC PRN DAILY PRN Felbamate 400 Mg Tablet 400 Mg PO TID I have reviewed the current psychotropics carefully including drug interactions. Risk benefit ratio favors no change other than as noted in my dictated progress note. Diagnosis: Problems: (1) Severe major depression with psychotic features (2) Adjustment disorder with depressed mood (3) Bipolar affective, mixed (4) Impulse control disorder (5) Dementia, vascular, with delusions (6) Dementia, vascular, with depression HARVEY QUIJANO MD May 31, 2018 21:45
--- NOTE | 2018-05-31 22:00 | NUR ---
Pt sitting quietly withdrawn to the hallway at shift change. Pt irritable but cooperative. Pt compliant with medications and assessment.
[2018-06-01] MEDS: LEVOTHYROXINE 75 MCG TABLET PO SCH (05:09)
[2018-06-01 05:46] VITALS: BP 106/73
[2018-06-01] MEDS: MAGNESIUM OXIDE 400 MG TABLET PO SCH ×3 (07:40→19:49)
[2018-06-01] MEDS: CALCIUM CARBONATE 500 MG TABLET PO SCH ×2 (07:41→18:12)
[2018-06-01] MEDS: levETIRAcetam 500 MG TABLET PO SCH ×2 (07:41→19:49)
[2018-06-01] MEDS: FERROUS SULFATE 325 MG TABLET. PO SCH ×2 (07:42→18:12)
[2018-06-01] MEDS: OLANZapine 5 MG TABLET PO SCH ×2 (07:42→19:49)
[2018-06-01] MEDS: busPIRone 15 MG TABLET. PO SCH ×2 (07:42→18:11)
[2018-06-01] MEDS: PANTOPRAZOLE 40 MG TABLET. PO SCH (07:42)
[2018-06-01] MEDS: CHOLECALCIFEROL (VITAMIN D3) 1,000 UNIT TABLET PO SCH (07:42)
[2018-06-01] MEDS: FELBAMATE 400 MG TABLET PO SCH ×3 (07:42→19:49)
[2018-06-01] MEDS: traMADol 50 MG TABLET PO SCH ×2 (07:43→19:48)
[2018-06-01] MEDS: PHENobarbital 32.4 MG TABLET. PO SCH ×2 (07:43→19:49)
[2018-06-01] MEDS: LACOSAMIDE 50 MG TABLET PO SCH ×2 (07:45→19:50)
--- NOTE | 2018-06-01 09:45 | NUR ---
Behavior Intervention Response and Plan: BIRP Note: Behavior: Assumed Care of patient, patient located in Dining Room at shift change. Patient exhibited the following behavior Disorganized, Irritable, Compliant. Brief assessment on rounds of vital signs, medication needs, lab studies, and pain. Treatment plan problems . Intervention: Patient assessed and the following interventions initiated safety checks 15 Minute Checks Cognitive Assessment , Head to toe Assessment , Medications. Response: After interactions and interventions patient responded in the following manner, Calm , Disorganized ,Irritable. Continue to assess behaviors and condition will continue to monitor throughout the shift as needed. Patient educated on ADL's, and hand hygiene. 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 Continue to assess patient for changes in above assessment. Monitor for medication needs, pain, and safety concerns. Hourly rounding performed to ensure safe environment.
[2018-06-01 16:06] VITALS: BP 92/58
--- NOTE | 2018-06-01 18:23 | NUR ---
pt up in wc for meals. sarcastic but compliant with meds and cares.
[2018-06-01] MEDS: ATORVASTATIN CALCIUM 10 MG TABLET. PO SCH (19:49)
[2018-06-01] MEDS: MIRTAZAPINE 15 MG TABLET PO SCH (19:49)
[2018-06-01] MEDS: CETIRIZINE HCL 10 MG TABLET PO SCH (19:49)
--- NOTE | 2018-06-01 21:00 | NUR ---
Behavior Intervention Response and Plan: BIRP Note: Behavior: Assumed Care of patient, patient located in Day Room at shift change. Patient exhibited the following behavior Interactive, Calm, Disorganized. Brief assessment on rounds of vital signs, medication needs, lab studies, and pain. Treatment plan problems . Intervention: Patient assessed and the following interventions initiated safety checks 15 Minute Checks Head to toe Assessment , Medications , Nutrition. Response: After interactions and interventions patient responded in the following manner, Able to Focus on Task , Compliant ,Cooperative. Continue to assess behaviors and condition will continue to monitor throughout the shift as needed. Patient educated on ADL's, and hand hygiene. Plan: Continue to monitor Master Treatment Plan for patient's progress toward short term goals of Medication Compliance, Improved Mood, [facility] goals to return to previous living setting vs placement. Continue to assess patient for changes in above assessment. Monitor for medication needs, pain, and safety concerns. Hourly rounding performed to ensure safe environment. Pt was disappointed we didn't have ice cream. She took her meds with orange juice, then ate chocolate pudding instead.
--- NOTE | 2018-06-01 21:03 | PN ---
DATE: 05/31/2018 PSYCHIATRIC PROGRESS NOTE This late entry 05/31/2018 covers elements not covered in my initial note. SUBJECTIVE: I met with the patient in the evening. The patient slept 5-1/2 hours previous night. She remains somewhat withdrawn, isolated, but less angry. REVIEW OF SYSTEMS: Ambulation impaired, in wheelchair. I met with her in her room. No CV, , pulmonary, eye, ENT system symptoms on review. MENTAL STATUS EXAM: Oriented to herself and situation. Speech has some latency, coherent. Abstraction fair, computation impaired, language function intact, attention span short. Mood and affect withdrawn. LABORATORY DATA: Reviewed. IMPRESSION: Unchanged from initial note. PLAN: No change from initial note. MAN Luis QUIJANO MD DR: LOYD/eboni JOB#: [id number] / [id number]
--- NOTE | 2018-06-01 21:07 | PN ---
DATE: 05/30/2018 PSYCHIATRIC PROGRESS NOTE This late entry 05/30/2018 covers elements not covered in my initial note. SUBJECTIVE: I met with the patient in the evening. Overall, the patient slept 6-1/4 hours previous night. Per nursing report, the patient has been "sarcastic." She has been isolative. I met with her in her room. She was working on her crossword puzzle. This is something that seems to keep her quite engrossed. REVIEW OF SYSTEMS: Ambulation impaired, in wheelchair. No CV, , pulmonary, eye system symptoms on review. MENTAL STATUS EXAM: Oriented to herself and situation. Speech moderate latency, often responses monosyllabic. Abstraction fair, computation impaired, language function intact, attention span short. Mood and affect somewhat withdrawn, but less angry. LABORATORY DATA: Reviewed. IMPRESSION: Unchanged from initial note. PLAN: No change from initial note. MAN Luis QUIJANO MD DR: LOYD/eboni JOB#: [id number] / [id number]
--- NOTE | 2018-06-01 22:31 | PDOC ---
Exam Note: David Note: Please also refer to the separate dictated note~for this date of service dictated separately.~Patient seen individually. Discussed the patient with Nursing staff reviewed the chart.~Reviewed interim history and current functioning. Reviewed vital signs,~Labs/ Radiology~and current medications noted below. Continue current treatment with the changes noted in the dictated addendum note Assessment: Vital Signs: Vital Signs Date Time Temp Pulse Resp B/P (MAP) Pulse Ox O2 Delivery O2 Flow Rate FiO2 06/01/18 20:48 20 96 06/01/18 19:48 Room Air 06/01/18 16:06 99.0 86 92/58 (69) I&O Intake and Output 06/01/18 07:00 Intake Total 1080 ml Balance 1080 ml Intake Oral 1080 ml Current Medications: Meds: Current Medications Haloperidol Lactate (Haldol) 5 mg 1X ONCE IM Last administered on 05/15/18at 00 :47; Start 05/15/18 at 01:00; Stop 05/15/18 at 01:01; Status DC Diphenhydramine HCl (Benadryl) 50 mg 1X ONCE IM Last administered on at 00:47; Start 05/15/18 at 01:00; Stop 05/15/18 at 01:01; Status DC Lorazepam (Ativan) 2 mg 1X ONCE IM Last administered on 05/15/18at 00:46; Start 05/15/18 at 00:30; Stop 05/15/18 at 00:51; Status DC Acetaminophen (Tylenol) 650 mg PRN Q4HRS PRN PO FEVER; Start 05/15/18 at 02:15 ; Stop 05/15/18 at 05:14; Status DC Acetaminophen (Tylenol) 650 mg PRN Q6HRS PRN PO PAIN / TEMP Last administered on 05/25/18at 16:45; Start 05/15/18 at 05:15 Calcium Carbonate/ Glycine (Oscal) 500 mg BIDWMEALS PO Last administered on at 18:12; Start 05/15/18 at 08:00 Vitamin D (Vitamin D3) 1,000 unit DAILY PO Last administered on 06/01/18at 07:42 ; Start 05/15/18 at 09:00 Felbamate (Felbatol) 400 mg TID PO Last administered on 06/01/18at 19:49; Start 05/15/18 at 09:00 Ferrous Sulfate (Feosol) 325 mg BIDAFTMEAL PO Last administered on 06/01/18at 18 :12; Start 05/15/18 at 09:00 Al Hydroxide/Mg Hydroxide (Mylanta Plus Xs) 15 ml PRN AFTMEALHC PRN PO DYSPEPSIA; Start 05/15/18 at 05:15 Multi-Ingredient Ointment (Analgesic [place]) 1 radha PRN QID PRN TP MUSCLE PAIN; Start 05/15/18 at 05:15 Senna/Docusate Sodium (Senna Plus) 1 tab PRN BID PRN PO CONSTIPATION; Start at 05:15; Stop 05/15/18 at 10:54; Status DC Tramadol HCl (Ultram) 50 mg PRN Q6HRS PRN PO PAIN; Start 05/15/18 at 05:15; Stop 05/15/18 at 10:54; Status DC Atorvastatin Calcium (Lipitor) 5 mg QHS PO ; Start 05/15/18 at 21:00; Stop 05/15 at 21:00; Status DC Bisacodyl (Dulcolax Supp) 10 mg PRN DAILY PRN [place] CONSTIPATION; Start 05/15/18 at 05:30 Divalproex Sodium (Depakote Sprinkles) 500 mg DAILY PO ; Start 05/15/18 at 09:00 ; Stop 05/15/18 at 10:54; Status DC Divalproex Sodium (Depakote Sprinkles) 750 mg QHS PO ; Start 05/15/18 at 21:00; Stop 05/15/18 at 21:00; Status DC Duloxetine HCl (Cymbalta) 60 mg DAILY PO ; Start 05/15/18 at 09:00; Stop at 10:54; Status DC Lacosamide (Vimpat) 200 mg BIDAFTMEAL PO ; Start 05/15/18 at 09:00; Stop at 09:00; Status DC Levetiracetam (Keppra) 750 mg BIDAFTMEAL PO ; Start 05/15/18 at 09:00; Stop at 09:00; Status DC Levothyroxine Sodium (Synthroid) 50 mcg DAILY06 PO ; Start 05/15/18 at 06:00; Stop 05/15/18 at 06:00; Status DC Magnesium Hydroxide (Milk Of Magnesia) 2,400 mg PRN QHS PRN PO CONSTIPATION; Start 05/15/18 at 05:30 Magnesium Oxide (Magnesium Oxide) 400 mg TID PO Last administered on 06/01/18at 19:49; Start 05/15/18 at 09:00 Pantoprazole Sodium (Protonix) 40 mg BIDBFRMEAL PO ; Start 05/15/18 at 07:30; Stop 05/15/18 at 07:41; Status DC Phenobarbital (Luminal) 64.8 mg QHS PO ; Start 05/15/18 at 21:00; Stop 05/15/18 at 21:00; Status DC Polyethylene Glycol (miraLAX) 17 gm PRN DAILY PRN PO CONSTIPATION; Start at 09:00; Stop 05/15/18 at 10:54; Status DC Quetiapine Fumarate (SEROquel) 12.5 mg QID PO ; Start 05/15/18 at 09:00; Stop at 10:54; Status DC Trazodone HCl (Desyrel) 50 mg PRN QHS PRN PO INSOMNIA, MAY REPEAT X1; Start at 05:30 Multi-Ingredient Ointment (Analgesic [place]imghar) 1 radha PRN QID PRN TP MUSCLE PAIN; Start 05/15/18 at 05:45; Status UNV Al Hydroxide/Mg Hydroxide (Mylanta Plus Xs) 15 ml PRN AFTMEALHC PRN PO DYSPEPSIA; Start 05/15/18 at 05:45; Status UNV Magnesium Hydroxide (Milk Of Magnesia) 2,400 mg PRN QHS PRN PO CONSTIPATION; Start 05/15/18 at 05:45; Status UNV Levetiracetam (Keppra) 500 mg BID PO Last administered on 06/01/18at 19:49; Start 05/15/18 at 09:00 Levothyroxine Sodium (Synthroid) 75 mcg DAILY06 PO Last administered on at 05:09; Start 05/16/18 at 06:00 Pantoprazole Sodium (Protonix) 20 mg BIDBFRMEAL PO ; Start 05/15/18 at 16:30; Stop 05/15/18 at 16:30; Status DC Phenobarbital (Luminal) 64.8 mg BID PO Last administered on 06/01/18at 19:49; Start 05/15/18 at 09:00 Cetirizine HCl (ZyrTEC) 10 mg HS PO Last administered on 06/01/18at 19:49; Start 05/15/18 at 21:00 Multi-Ingred Cream/Lotion/Oil/ Oint (Hydrocerin) 1 radha PRN Q12HR PRN TP DRY SKIN / SCALING; Start 05/15/18 at 07:30 Guaifenesin (Guaifenesin) 100 mg PRN Q4HRS PRN PO COUGH; Start 05/15/18 at 07: 30; Stop 05/15/18 at 10:54; Status DC Ibuprofen (Motrin) 400 mg PRN Q4HRS PRN PO INFLAMMATION; Start 05/15/18 at 07: 30; Stop 05/15/18 at 11:10; Status DC Olanzapine (ZyPREXA) 5 mg BID PO Last administered on 06/01/18at 19:49; Start at 09:00 Mirtazapine (Remeron) 15 mg QHS PO Last administered on 06/01/18at 19:49; Start 05/15/18 at 21:00 Tramadol HCl (Ultram) 50 mg PRN Q8HRS PRN PO PAIN; Start 05/15/18 at 07:30 Tramadol HCl (Ultram) 50 mg BID PRN PO PAIN; Start 05/15/18 at 07:30; Stop at 10:54; Status DC Lacosamide (Vimpat) 200 mg BID PO Last administered on 06/01/18at 19:50; Start 05/15/18 at 09:00 Calcium Carbonate/ Glycine (Oscal) 500 mg BID PO ; Start 05/15/18 at 21:00; Stop 05/15/18 at 21:00; Status DC Guaifenesin (Robitussin) 100 mg PRN Q4HRS PRN PO COUGH; Start 05/15/18 at 10:30 Ibuprofen (Motrin) 400 mg PRN Q4HRS PRN PO PAIN Last administered on 05/27/18at 12:17; Start 05/15/18 at 10:30 Multi-Ingred Cream/Lotion/Oil/ Oint (Hydrocerin) 120 radha PRN Q12HR PRN TP dry skin; Start 05/15/18 at 10:30; Stop 05/15/18 at 11:07; Status DC Tramadol HCl (Ultram) 50 mg BID PRN PO PAIN; Start 05/15/18 at 10:30; Stop at 13:43; Status DC Tramadol HCl (Ultram) 50 mg PRN Q8HRS PRN PO PAIN; Start 05/15/18 at 10:30; Stop 05/15/18 at 11:25; Status DC Non-Formulary Medication (Cetirizine Hcl ) 10 mg QHS PO ; Start 05/15/18 at 21: 00; Stop 05/15/18 at 21:00; Status DC Non-Formulary Medication (Mirtazapine (Remeron)) 15 mg QHS PO ; Start 05/15/18 at 21:00; Stop 05/15/18 at 21:00; Status DC Non-Formulary Medication (Olanzapine ) 5 mg BID PO ; Start 05/15/18 at 21:00; Stop 05/15/18 at 21:00; Status DC Atorvastatin Calcium (Lipitor) 10 mg QHS PO Last administered on 06/01/18at 19: 49; Start 05/15/18 at 21:00 Tramadol HCl (Ultram) 50 mg BID PO Last administered on 06/01/18at 19:48; Start 05/15/18 at 21:00 Pantoprazole Sodium (Protonix) 40 mg DAILYAC PO Last administered on 06/01/18at 07:42; Start 05/15/18 at 11:30 Buspirone HCl (Buspar) 5 mg BIDWBKFT/JIN PO Last administered on 05/19/18at 12:22 ; Start 05/16/18 at 17:00; Stop 05/19/18 at 16:26; Status DC Buspirone HCl (Buspar) 10 mg BIDWBKFT/JIN PO ; Start 05/20/18 at 08:00; Stop 05/20 at 08:29; Status DC Buspirone HCl (Buspar) 10 mg BIDWBKFT/JIN PO Last administered on 05/22/18at 12: 00; Start 05/20/18 at 08:30; Stop 05/22/18 at 21:00; Status DC Buspirone HCl (Buspar) 15 mg BIDACBL PO Last administered on 05/23/18at 11:58; Start 05/23/18 at 07:30; Stop 05/23/18 at 18:46; Status DC Buspirone HCl (Buspar) 15 mg 0900,1700 PO Last administered on 06/01/18at 18:11 ; Start 05/24/18 at 09:00 Active Scripts Active Reported Tramadol Hcl (Tramadol HCl) 50 Mg Tablet 50 Mg PO BID PRN Tramadol Hcl (Tramadol HCl) 50 Mg Tablet 50 Mg PO PRN Q8HRS PRN Remeron (Mirtazapine) 15 Mg Tablet 15 Mg PO QHS Olanzapine 5 Mg Tablet 5 Mg PO BID Ibuprofen 400 Mg Tablet 400 Mg PO PRN Q4HRS PRN Guaifenesin 100 Mg/5 Ml Liquid 5 Ml PO PRN Q4HRS PRN Eucerin Creme (Mineral Oil/Petrolatum,White) 120 Gm Cream..g. 120 Gm TP PRN Q12HR PRN Cetirizine Hcl 10 Mg Tablet 10 Mg PO QHS Calcium Carbonate 500 Mg Tablet 500 Mg PO BID Levothyroxine Sodium 50 Mcg Tablet 75 Mcg PO DAILY06 Analgesic [place] (Methyl Salicylate/Menthol) 28 Gm Oint...g. 1 Radha TP PRN QID PRN Mag-Al Plus Xs Suspension (Mag Hydrox/Al Hydrox/Simeth) 30 Ml Oral.susp 15 Ml PO PRN AFTMEALHC PRN Vimpat (Lacosamide) 200 Mg Tablet 200 Mg PO BID Milk Of Magnesia (Magnesium Hydroxide) 2,400 Mg/10 Ml Oral.susp 2,400 Mg PO PRN QHS PRN Atorvastatin Calcium 10 Mg Tablet 10 Mg PO QHS Pantoprazole Sodium 40 Mg Tablet.dr 20 Mg PO BIDBFRMEAL Vitamin D3 (Cholecalciferol (Vitamin D3)) 1,000 Unit Tablet 1,000 Unit PO DAILY Phenobarbital 64.8 Mg Tablet 64.8 Mg PO BID Magnesium Oxide 400 Mg Tablet 400 Mg PO TID Tylenol (Acetaminophen) 325 Mg Tablet 650 Mg PO PRN Q6HRS PRN Keppra (Levetiracetam) 250 Mg Tablet 500 Mg PO BID Ferrous Sulfate 325 Mg Tablet 325 Mg PO BIDAFTMEAL Bisacodyl 10 Mg Supp.rect 10 Mg RC PRN DAILY PRN Felbamate 400 Mg Tablet 400 Mg PO TID I have reviewed the current psychotropics carefully including drug interactions. Risk benefit ratio favors no change other than as noted in my dictated progress note. Diagnosis: Problems: (1) Functional diarrhea (2) urinary tract infection (3) Left hip arthroplasty (4) Severe major depression with psychotic features (5) Adjustment disorder with depressed mood (6) Bipolar affective, mixed (7) Impulse control disorder (8) Dementia, vascular, with delusions (9) Dementia, vascular, with depression HARVEY QUIJANO MD Jun 01, 2018 22:31
[2018-06-02] MEDS: LEVOTHYROXINE 75 MCG TABLET PO SCH (05:58)
[2018-06-02 06:08] VITALS: BP 95/62
[2018-06-02] MEDS: busPIRone 15 MG TABLET. PO SCH ×2 (07:58→15:59)
[2018-06-02] MEDS: levETIRAcetam 500 MG TABLET PO SCH ×2 (07:58→20:15)
[2018-06-02] MEDS: PANTOPRAZOLE 40 MG TABLET. PO SCH (07:58)
[2018-06-02] MEDS: CALCIUM CARBONATE 500 MG TABLET PO SCH ×2 (07:58→15:59)
[2018-06-02] MEDS: OLANZapine 5 MG TABLET PO SCH ×2 (07:58→20:14)
[2018-06-02] MEDS: MAGNESIUM OXIDE 400 MG TABLET PO SCH ×3 (07:58→20:13)
[2018-06-02] MEDS: FERROUS SULFATE 325 MG TABLET. PO SCH ×2 (08:00→16:05)
[2018-06-02] MEDS: CHOLECALCIFEROL (VITAMIN D3) 1,000 UNIT TABLET PO SCH (08:00)
[2018-06-02] MEDS: PHENobarbital 32.4 MG TABLET. PO SCH ×2 (08:05→20:14)
[2018-06-02] MEDS: LACOSAMIDE 50 MG TABLET PO SCH ×2 (08:05→20:13)
[2018-06-02] MEDS: FELBAMATE 400 MG TABLET PO SCH ×3 (08:05→20:13)
[2018-06-02] MEDS: traMADol 50 MG TABLET PO SCH ×2 (08:06→20:15)
--- NOTE | 2018-06-02 13:58 | NUR ---
PATTI contacted pt sonKaushik to discuss discharge back to [facility] tomorrow. Pt son and PATTI went over the potential for pt to discharge to a residential home as it would be less people and in an actual home setting. This would allow pt to be able to not feel so crowded, yet she would still be able to receive care from the local [facility] agencies, such as [facility] or other centers from the [facility]. Pt son has requested that SW email him this information and will find out more information re: pt discharge for tomorrow.
--- NOTE | 2018-06-02 14:18 | NUR ---
Pt contacted Alice at [facility] to update her on pt return to them tomorrow and discussed [facility] in [place] "tentatively accepting pt". PATTI informed Alice that she will need to initiate with the Dept of Aging an HCBS referral that will allow for the residential homes to accept Medicaid payment. PATTI will make sure to also send this information over to Alice so that they can continue to help pt with placement.
--- NOTE | 2018-06-02 14:55 | NUR ---
[facility] Social Work Discharge Planning Form Patient Name LUZMA BALDERAS Admit Date: 05/15/18 DISCHARGE PLAN Discharge Destination: Pt to discharge to [facility] Assessment: N/A Level II Assessment: N/A Transportation: Facility to pick pt up tomorrow. Transport time still TBD. Special Instructions/Notes: Please fax discharge orders and the medication list over to [facility] DISCHARGE TO FACILITY Facility: [facility] Address: [address] [place] [address]; [place] [address] Contact Name: Alice Uribe SW: Contact Name: Please ask for the nurse caring for pt. PCP: Dr. Sheridan
[2018-06-02 16:15] VITALS: BP 95/61
--- NOTE | 2018-06-02 18:36 | NUR ---
Pt compliant with meds and cares, withdrawn to room most of the day, very irritable, responding negatively to staff with most anything she was asked saying things such as "I don't like it" "that's stupid". Also would direct negative comments towards other pts.
[2018-06-02] MEDS: MIRTAZAPINE 15 MG TABLET PO SCH (20:13)
[2018-06-02] MEDS: CETIRIZINE HCL 10 MG TABLET PO SCH (20:14)
[2018-06-02] MEDS: ATORVASTATIN CALCIUM 10 MG TABLET. PO SCH (20:14)
--- NOTE | 2018-06-02 21:00 | NUR ---
Behavior Intervention Response and Plan: BIRP Note: Behavior: Assumed Care of patient, patient located in Hallway at shift change. Patient exhibited the following behavior Disorganized, Resistive, Attention Seeking. Brief assessment on rounds of vital signs, medication needs, lab studies, and pain. Treatment plan problems . Intervention: Patient assessed and the following interventions initiated safety checks 15 Minute Checks Cognitive Assessment , Head to toe Assessment , Medications. Response: After interactions and interventions patient responded in the following manner, Drowsy , Calm ,Sleeping. Continue to assess behaviors and condition will continue to monitor throughout the shift as needed. Patient educated on ADL's, and hand hygiene. Plan: Continue to monitor Master Treatment Plan for patient's progress toward short term goals of Medication Compliance, Decreased Anxiety, prison goals to return to previous living setting vs placement. Continue to assess patient for changes in above assessment. Monitor for medication needs, pain, and safety concerns. Hourly rounding performed to ensure safe environment.
--- NOTE | 2018-06-02 22:20 | PDOC ---
Exam Note: David Note: Please also refer to the separate dictated note~for this date of service dictated separately.~Patient seen individually. Discussed the patient with Nursing staff reviewed the chart.~Reviewed interim history and current functioning. Reviewed vital signs,~Labs/ Radiology~and current medications noted below. Continue current treatment with the changes noted in the dictated addendum note Assessment: Vital Signs: Vital Signs Date Time Temp Pulse Resp B/P (MAP) Pulse Ox O2 Delivery O2 Flow Rate FiO2 06/02/18 20:15 Room Air 06/02/18 16:15 97.9 77 18 95/61 (72) 98 I&O Intake and Output 06/02/18 07:00 Intake Total 1080 ml Balance 1080 ml Intake Oral 1080 ml # Bowel Movements 1 Current Medications: Meds: Current Medications Haloperidol Lactate (Haldol) 5 mg 1X ONCE IM Last administered on 05/15/18at 00 :47; Start 05/15/18 at 01:00; Stop 05/15/18 at 01:01; Status DC Diphenhydramine HCl (Benadryl) 50 mg 1X ONCE IM Last administered on at 00:47; Start 05/15/18 at 01:00; Stop 05/15/18 at 01:01; Status DC Lorazepam (Ativan) 2 mg 1X ONCE IM Last administered on 05/15/18at 00:46; Start 05/15/18 at 00:30; Stop 05/15/18 at 00:51; Status DC Acetaminophen (Tylenol) 650 mg PRN Q4HRS PRN PO FEVER; Start 05/15/18 at 02:15 ; Stop 05/15/18 at 05:14; Status DC Acetaminophen (Tylenol) 650 mg PRN Q6HRS PRN PO PAIN / TEMP Last administered on 05/25/18 16:45; Start 05/15/18 at 05:15 Calcium Carbonate/ Glycine (Oscal) 500 mg BIDWMEALS PO Last administered on 15:59; Start 05/15/18 at 08:00 Vitamin D (Vitamin D3) 1,000 unit DAILY PO Last administered on 06/02/18at 08:00 ; Start 05/15/18 at 09:00 Felbamate (Felbatol) 400 mg TID PO Last administered on 06/02/18at 20:13; Start 05/15/18 at 09:00 Ferrous Sulfate (Feosol) 325 mg BIDAFTMEAL PO Last administered on 06/02/18at 16 :05; Start 05/15/18 at 09:00 Al Hydroxide/Mg Hydroxide (Mylanta Plus Xs) 15 ml PRN AFTMEALHC PRN PO DYSPEPSIA; Start 05/15/18 at 05:15 Multi-Ingredient Ointment (Analgesic Whately) 1 radha PRN QID PRN TP MUSCLE PAIN; Start 05/15/18 at 05:15 Senna/Docusate Sodium (Senna Plus) 1 tab PRN BID PRN PO CONSTIPATION; Start at 05:15; Stop 05/15/18 at 10:54; Status DC Tramadol HCl (Ultram) 50 mg PRN Q6HRS PRN PO PAIN; Start 05/15/18 at 05:15; Stop 05/15/18 at 10:54; Status DC Atorvastatin Calcium (Lipitor) 5 mg QHS PO ; Start 05/15/18 at 21:00; Stop 05/15 at 21:00; Status DC Bisacodyl (Dulcolax Supp) 10 mg PRN DAILY PRN DE CONSTIPATION; Start 05/15/18 at 05:30 Divalproex Sodium (Depakote Sprinkles) 500 mg DAILY PO ; Start 05/15/18 at 09:00 ; Stop 05/15/18 at 10:54; Status DC Divalproex Sodium (Depakote Sprinkles) 750 mg QHS PO ; Start 05/15/18 at 21:00; Stop 05/15/18 at 21:00; Status DC Duloxetine HCl (Cymbalta) 60 mg DAILY PO ; Start 05/15/18 at 09:00; Stop at 10:54; Status DC Lacosamide (Vimpat) 200 mg BIDAFTMEAL PO ; Start 05/15/18 at 09:00; Stop at 09:00; Status DC Levetiracetam (Keppra) 750 mg BIDAFTMEAL PO ; Start 05/15/18 at 09:00; Stop at 09:00; Status DC Levothyroxine Sodium (Synthroid) 50 mcg DAILY06 PO ; Start 05/15/18 at 06:00; Stop 05/15/18 at 06:00; Status DC Magnesium Hydroxide (Milk Of Magnesia) 2,400 mg PRN QHS PRN PO CONSTIPATION; Start 05/15/18 at 05:30 Magnesium Oxide (Magnesium Oxide) 400 mg TID PO Last administered on 06/02/18at 20:13; Start 05/15/18 at 09:00 Pantoprazole Sodium (Protonix) 40 mg BIDBFRMEAL PO ; Start 05/15/18 at 07:30; Stop 05/15/18 at 07:41; Status DC Phenobarbital (Luminal) 64.8 mg QHS PO ; Start 05/15/18 at 21:00; Stop 05/15/18 at 21:00; Status DC Polyethylene Glycol (miraLAX) 17 gm PRN DAILY PRN PO CONSTIPATION; Start at 09:00; Stop 05/15/18 at 10:54; Status DC Quetiapine Fumarate (SEROquel) 12.5 mg QID PO ; Start 05/15/18 at 09:00; Stop at 10:54; Status DC Trazodone HCl (Desyrel) 50 mg PRN QHS PRN PO INSOMNIA, MAY REPEAT X1; Start at 05:30 Multi-Ingredient Ointment (Analgesic Whately) 1 radha PRN QID PRN TP MUSCLE PAIN; Start 05/15/18 at 05:45; Status UNV Al Hydroxide/Mg Hydroxide (Mylanta Plus Xs) 15 ml PRN AFTMEALHC PRN PO DYSPEPSIA; Start 05/15/18 at 05:45; Status UNV Magnesium Hydroxide (Milk Of Magnesia) 2,400 mg PRN QHS PRN PO CONSTIPATION; Start 05/15/18 at 05:45; Status UNV Levetiracetam (Keppra) 500 mg BID PO Last administered on 06/02/18at 20:15; Start 05/15/18 at 09:00 Levothyroxine Sodium (Synthroid) 75 mcg DAILY06 PO Last administered on at 05:58; Start 05/16/18 at 06:00 Pantoprazole Sodium (Protonix) 20 mg BIDBFRMEAL PO ; Start 05/15/18 at 16:30; Stop 05/15/18 at 16:30; Status DC Phenobarbital (Luminal) 64.8 mg BID PO Last administered on 06/02/18at 20:14; Start 05/15/18 at 09:00 Cetirizine HCl (ZyrTEC) 10 mg HS PO Last administered on 06/02/18at 20:14; Start 05/15/18 at 21:00 Multi-Ingred Cream/Lotion/Oil/ Oint (Hydrocerin) 1 radha PRN Q12HR PRN TP DRY SKIN / SCALING; Start 05/15/18 at 07:30 Guaifenesin (Guaifenesin) 100 mg PRN Q4HRS PRN PO COUGH; Start 05/15/18 at 07: 30; Stop 05/15/18 at 10:54; Status DC Ibuprofen (Motrin) 400 mg PRN Q4HRS PRN PO INFLAMMATION; Start 05/15/18 at 07: 30; Stop 05/15/18 at 11:10; Status DC Olanzapine (ZyPREXA) 5 mg BID PO Last administered on 06/02/18at 20:14; Start at 09:00 Mirtazapine (Remeron) 15 mg QHS PO Last administered on 06/02/18at 20:13; Start 05/15/18 at 21:00 Tramadol HCl (Ultram) 50 mg PRN Q8HRS PRN PO PAIN; Start 05/15/18 at 07:30 Tramadol HCl (Ultram) 50 mg BID PRN PO PAIN; Start 05/15/18 at 07:30; Stop at 10:54; Status DC Lacosamide (Vimpat) 200 mg BID PO Last administered on 06/02/18at 20:13; Start 05/15/18 at 09:00 Calcium Carbonate/ Glycine (Oscal) 500 mg BID PO ; Start 05/15/18 at 21:00; Stop 05/15/18 at 21:00; Status DC Guaifenesin (Robitussin) 100 mg PRN Q4HRS PRN PO COUGH; Start 05/15/18 at 10:30 Ibuprofen (Motrin) 400 mg PRN Q4HRS PRN PO PAIN Last administered on 05/27/18at 12:17; Start 05/15/18 at 10:30 Multi-Ingred Cream/Lotion/Oil/ Oint (Hydrocerin) 120 radha PRN Q12HR PRN TP dry skin; Start 05/15/18 at 10:30; Stop 05/15/18 at 11:07; Status DC Tramadol HCl (Ultram) 50 mg BID PRN PO PAIN; Start 05/15/18 at 10:30; Stop at 13:43; Status DC Tramadol HCl (Ultram) 50 mg PRN Q8HRS PRN PO PAIN; Start 05/15/18 at 10:30; Stop 05/15/18 at 11:25; Status DC Non-Formulary Medication (Cetirizine Hcl ) 10 mg QHS PO ; Start 05/15/18 at 21: 00; Stop 05/15/18 at 21:00; Status DC Non-Formulary Medication (Mirtazapine (Remeron)) 15 mg QHS PO ; Start 05/15/18 at 21:00; Stop 05/15/18 at 21:00; Status DC Non-Formulary Medication (Olanzapine ) 5 mg BID PO ; Start 05/15/18 at 21:00; Stop 05/15/18 at 21:00; Status DC Atorvastatin Calcium (Lipitor) 10 mg QHS PO Last administered on 06/02/18at 20: 14; Start 05/15/18 at 21:00 Tramadol HCl (Ultram) 50 mg BID PO Last administered on 06/02/18at 20:15; Start 05/15/18 at 21:00 Pantoprazole Sodium (Protonix) 40 mg DAILYAC PO Last administered on 06/02/18at 07:58; Start 05/15/18 at 11:30 Buspirone HCl (Buspar) 5 mg BIDWBKFT/JIN PO Last administered on 05/19/18at 12:22 ; Start 05/16/18 at 17:00; Stop 05/19/18 at 16:26; Status DC Buspirone HCl (Buspar) 10 mg BIDWBKFT/JIN PO ; Start 05/20/18 at 08:00; Stop 05/20 at 08:29; Status DC Buspirone HCl (Buspar) 10 mg BIDWBKFT/JIN PO Last administered on 05/22/18at 12: 00; Start 05/20/18 at 08:30; Stop 05/22/18 at 21:00; Status DC Buspirone HCl (Buspar) 15 mg BIDACBL PO Last administered on 05/23/18at 11:58; Start 05/23/18 at 07:30; Stop 05/23/18 at 18:46; Status DC Buspirone HCl (Buspar) 15 mg 0900,1700 PO Last administered on 06/02/18at 15:59 ; Start 05/24/18 at 09:00 Active Scripts Active Reported Tramadol Hcl (Tramadol HCl) 50 Mg Tablet 50 Mg PO BID PRN Tramadol Hcl (Tramadol HCl) 50 Mg Tablet 50 Mg PO PRN Q8HRS PRN Remeron (Mirtazapine) 15 Mg Tablet 15 Mg PO QHS Olanzapine 5 Mg Tablet 5 Mg PO BID Ibuprofen 400 Mg Tablet 400 Mg PO PRN Q4HRS PRN Guaifenesin 100 Mg/5 Ml Liquid 5 Ml PO PRN Q4HRS PRN Eucerin Creme (Mineral Oil/Petrolatum,White) 120 Gm Cream..g. 120 Gm TP PRN Q12HR PRN Cetirizine Hcl 10 Mg Tablet 10 Mg PO QHS Calcium Carbonate 500 Mg Tablet 500 Mg PO BID Levothyroxine Sodium 50 Mcg Tablet 75 Mcg PO DAILY06 Analgesic Whately (Methyl Salicylate/Menthol) 28 Gm Oint...g. 1 Radha TP PRN QID PRN Mag-Al Plus Xs Suspension (Mag Hydrox/Al Hydrox/Simeth) 30 Ml Oral.susp 15 Ml PO PRN AFTMEALHC PRN Vimpat (Lacosamide) 200 Mg Tablet 200 Mg PO BID Milk Of Magnesia (Magnesium Hydroxide) 2,400 Mg/10 Ml Oral.susp 2,400 Mg PO PRN QHS PRN Atorvastatin Calcium 10 Mg Tablet 10 Mg PO QHS Pantoprazole Sodium 40 Mg Tablet.dr 20 Mg PO BIDBFRMEAL Vitamin D3 (Cholecalciferol (Vitamin D3)) 1,000 Unit Tablet 1,000 Unit PO DAILY Phenobarbital 64.8 Mg Tablet 64.8 Mg PO BID Magnesium Oxide 400 Mg Tablet 400 Mg PO TID Tylenol (Acetaminophen) 325 Mg Tablet 650 Mg PO PRN Q6HRS PRN Keppra (Levetiracetam) 250 Mg Tablet 500 Mg PO BID Ferrous Sulfate 325 Mg Tablet 325 Mg PO BIDAFTMEAL Bisacodyl 10 Mg Supp.rect 10 Mg RC PRN DAILY PRN Felbamate 400 Mg Tablet 400 Mg PO TID I have reviewed the current psychotropics carefully including drug interactions. Risk benefit ratio favors no change other than as noted in my dictated progress note. Diagnosis: Problems: (1) Functional diarrhea (2) urinary tract infection (3) Left hip arthroplasty (4) Severe major depression with psychotic features (5) Adjustment disorder with depressed mood (6) Bipolar affective, mixed (7) Impulse control disorder (8) Dementia, vascular, with delusions (9) Dementia, vascular, with depression HARVEY QUIJANO MD Jun 02, 2018 22:20
[2018-06-03] MEDS ORDERED: BUSP15TA PO (01:30)
[2018-06-03] MEDS ORDERED: TRAZ-120 PO (01:32)
[2018-06-03] MEDS: LEVOTHYROXINE 75 MCG TABLET PO SCH (05:36)
[2018-06-03 05:51] VITALS: BP 103/68
[2018-06-03] MEDS: LACOSAMIDE 50 MG TABLET PO SCH (08:08)
[2018-06-03] MEDS: OLANZapine 5 MG TABLET PO SCH (08:08)
[2018-06-03] MEDS: CHOLECALCIFEROL (VITAMIN D3) 1,000 UNIT TABLET PO SCH (08:09)
[2018-06-03] MEDS: busPIRone 15 MG TABLET. PO SCH (08:09)
[2018-06-03] MEDS: FERROUS SULFATE 325 MG TABLET. PO SCH (08:10)
[2018-06-03] MEDS: PHENobarbital 32.4 MG TABLET. PO SCH (08:10)
[2018-06-03] MEDS: traMADol 50 MG TABLET PO SCH (08:10)
[2018-06-03] MEDS: MAGNESIUM OXIDE 400 MG TABLET PO SCH ×2 (08:10→14:06)
[2018-06-03] MEDS: PANTOPRAZOLE 40 MG TABLET. PO SCH (08:10)
[2018-06-03] MEDS: CALCIUM CARBONATE 500 MG TABLET PO SCH (08:10)
[2018-06-03] MEDS: levETIRAcetam 500 MG TABLET PO SCH (08:11)
[2018-06-03] MEDS: FELBAMATE 400 MG TABLET PO SCH ×2 (08:12→14:06)
--- NOTE | 2018-06-03 09:20 | NUR ---
Behavior Intervention Response and Plan: BIRP Note: Behavior: Assumed Care of patient, patient located in Day Room at shift change. Patient exhibited the following behavior Restless, Disorganized, Resistive. Brief assessment on rounds of vital signs, medication needs, lab studies, and pain. Treatment plan problems 1 & 2. Intervention: Patient assessed and the following interventions initiated safety checks 15 Minute Checks Cognitive Assessment , Head to toe Assessment , Medications. Response: After interactions and interventions patient responded in the following manner, Withdrawn , disorganized ,Resistive. Continue to assess behaviors and condition will continue to monitor throughout the shift as needed. Patient educated on ADL's, and hand hygiene. 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 Continue to assess patient for changes in above assessment. Monitor for medication needs, pain, and safety concerns. Hourly rounding performed to ensure safe environment.
--- NOTE | 2018-06-03 14:40 | NUR ---
Transition Record was faxed to follow-up provider with the following elements: Reason for admission, procedures, tests, principal diagnosis, pending studies, patient instructions, 05/11 contact information for unit, phone number to obtain pending test results, plan for follow-up care, physician follow-up, advanced directive information, and medication list with dose, duration and instructions. This information was included in the following documents: History and physical, lab results, study results, progress notes, social work planning form, DC instruction form, patient visit summary, and medication reconciliation form. Date & time record faxed: [phone] June 2018 Record faxed to: [facility] Record discussed with/ report given to: Multiple attempts to contact facility failed,
--- NOTE | 2018-06-03 20:01 | PN ---
DATE: 06/01/2018 PSYCHIATRIC PROGRESS NOTE This late entry 06/01/2018 covers elements not covered in my initial note. SUBJECTIVE: I met with the patient in the evening. The patient slept 6 hours previous night. She remains somewhat withdrawn, spends much time in her room, working on puzzles, but not aggressive. REVIEW OF SYSTEMS: Ambulation impaired, in wheelchair. No CV, , pulmonary, eye system symptoms on review. MENTAL STATUS EXAM: Oriented to herself and situation. Speech has some latency, low in rate and rhythm, low in volume. Abstraction fair, computation impaired, language function intact, attention span short. Mood and affect somewhat withdrawn, but less labile, less aggressive verbally. LABORATORY DATA: Reviewed. IMPRESSION: Unchanged from initial note. PLAN: No change from initial note with possible transition to skilled nursing 06/02/2018. MAN Luis QUIJANO MD DR: LOYD/eboni JOB#: [id number] / [id number]
--- NOTE | 2018-06-03 20:04 | PN ---
DATE: 06/02/2018 PSYCHIATRIC PROGRESS NOTE This late entry 06/02/2018 covers elements not covered in my initial note. SUBJECTIVE: I met with the patient in the evening. The patient slept 6 hours previous night. She remains somewhat withdrawn, but works on her crossword puzzles, keeps herself busy with this. Less agitated. REVIEW OF SYSTEMS: Ambulation impaired, in wheelchair. No CV, , pulmonary, eye system symptoms on review. MENTAL STATUS EXAM: Oriented to herself and situation. Speech has some latency, coherent, low in volume. Abstraction fair, computation impaired, language function intact, attention span short. Mood and affect somewhat withdrawn, less irritable, less labile. LABORATORY DATA: Reviewed. IMPRESSION: Unchanged from initial note. PLAN: No change from initial note. Reviewed the patient's progress and [facility] in the next day or so. MAN Luis QUIJANO MD DR: LOYD/eboni JOB#: [id number] / [id number]
--- NOTE | 2018-06-03 22:23 | PDOC ---
Exam Note: David Note: Please also refer to the separate dictated note~for this date of service dictated separately.~Patient seen individually. Discussed the patient with Nursing staff reviewed the chart.~Reviewed interim history and current functioning. Reviewed vital signs,~Labs/ Radiology~and current medications noted below. Continue current treatment with the changes noted in the dictated addendum note Assessment: Vital Signs: Vital Signs Date Time Temp Pulse Resp B/P (MAP) Pulse Ox O2 Delivery O2 Flow Rate FiO2 06/03/18 09:30 16 97 Room Air 06/03/18 05:51 97.0 74 103/68 (80) I&O Intake and Output 06/03/18 07:00 Intake Total 1800 ml Balance 1800 ml Intake Oral 1800 ml Current Medications: Meds: Current Medications Haloperidol Lactate (Haldol) 5 mg 1X ONCE IM Last administered on 05/15/18at 00 :47; Start 05/15/18 at 01:00; Stop 05/15/18 at 01:01; Status DC Diphenhydramine HCl (Benadryl) 50 mg 1X ONCE IM Last administered on at 00:47; Start 05/15/18 at 01:00; Stop 05/15/18 at 01:01; Status DC Lorazepam (Ativan) 2 mg 1X ONCE IM Last administered on 05/15/18at 00:46; Start 05/15/18 at 00:30; Stop 05/15/18 at 00:51; Status DC Acetaminophen (Tylenol) 650 mg PRN Q4HRS PRN PO FEVER; Start 05/15/18 at 02:15 ; Stop 05/15/18 at 05:14; Status DC Acetaminophen (Tylenol) 650 mg PRN Q6HRS PRN PO PAIN / TEMP Last administered on 05/25/18at 16:45; Start 05/15/18 at 05:15; Stop 06/03/18 at 15:09; Status DC Calcium Carbonate/ Glycine (Oscal) 500 mg BIDWMEALS PO Last administered on at 08:10; Start 05/15/18 at 08:00; Stop 06/03/18 at 15:09; Status DC Vitamin D (Vitamin D3) 1,000 unit DAILY PO Last administered on 06/03/18 08:09 ; Start 05/15/18 at 09:00; Stop 06/03/18 at 15:09; Status DC Felbamate (Felbatol) 400 mg TID PO Last administered on 06/03/18at 14:06; Start 05/15/18 at 09:00; Stop 06/03/18 at 15:09; Status DC Ferrous Sulfate (Feosol) 325 mg BIDAFTMEAL PO Last administered on 06/03/18at 08 :10; Start 05/15/18 at 09:00; Stop 06/03/18 at 15:09; Status DC Al Hydroxide/Mg Hydroxide (Mylanta Plus Xs) 15 ml PRN AFTMEALHC PRN PO DYSPEPSIA; Start 05/15/18 at 05:15; Stop 06/03/18 at 15:09; Status DC Multi-Ingredient Ointment (Analgesic Hondo) 1 radha PRN QID PRN TP MUSCLE PAIN; Start 05/15/18 at 05:15; Stop 06/03/18 at 15:09; Status DC Senna/Docusate Sodium (Senna Plus) 1 tab PRN BID PRN PO CONSTIPATION; Start at 05:15; Stop 05/15/18 at 10:54; Status DC Tramadol HCl (Ultram) 50 mg PRN Q6HRS PRN PO PAIN; Start 05/15/18 at 05:15; Stop 05/15/18 at 10:54; Status DC Atorvastatin Calcium (Lipitor) 5 mg QHS PO ; Start 05/15/18 at 21:00; Stop 05/15 at 21:00; Status DC Bisacodyl (Dulcolax Supp) 10 mg PRN DAILY PRN IA CONSTIPATION; Start 05/15/18 at 05:30; Stop 06/03/18 at 15:09; Status DC Divalproex Sodium (Depakote Sprinkles) 500 mg DAILY PO ; Start 05/15/18 at 09:00 ; Stop 05/15/18 at 10:54; Status DC Divalproex Sodium (Depakote Sprinkles) 750 mg QHS PO ; Start 05/15/18 at 21:00; Stop 05/15/18 at 21:00; Status DC Duloxetine HCl (Cymbalta) 60 mg DAILY PO ; Start 05/15/18 at 09:00; Stop at 10:54; Status DC Lacosamide (Vimpat) 200 mg BIDAFTMEAL PO ; Start 05/15/18 at 09:00; Stop at 09:00; Status DC Levetiracetam (Keppra) 750 mg BIDAFTMEAL PO ; Start 05/15/18 at 09:00; Stop at 09:00; Status DC Levothyroxine Sodium (Synthroid) 50 mcg DAILY06 PO ; Start 05/15/18 at 06:00; Stop 05/15/18 at 06:00; Status DC Magnesium Hydroxide (Milk Of Magnesia) 2,400 mg PRN QHS PRN PO CONSTIPATION; Start 05/15/18 at 05:30; Stop 06/03/18 at 15:09; Status DC Magnesium Oxide (Magnesium Oxide) 400 mg TID PO Last administered on 06/03/18at 14:06; Start 05/15/18 at 09:00; Stop 06/03/18 at 15:09; Status DC Pantoprazole Sodium (Protonix) 40 mg BIDBFRMEAL PO ; Start 05/15/18 at 07:30; Stop 05/15/18 at 07:41; Status DC Phenobarbital (Luminal) 64.8 mg QHS PO ; Start 05/15/18 at 21:00; Stop 05/15/18 at 21:00; Status DC Polyethylene Glycol (miraLAX) 17 gm PRN DAILY PRN PO CONSTIPATION; Start at 09:00; Stop 05/15/18 at 10:54; Status DC Quetiapine Fumarate (SEROquel) 12.5 mg QID PO ; Start 05/15/18 at 09:00; Stop at 10:54; Status DC Trazodone HCl (Desyrel) 50 mg PRN QHS PRN PO INSOMNIA, MAY REPEAT X1; Start at 05:30; Stop 06/03/18 at 15:09; Status DC Multi-Ingredient Ointment (Analgesic Hondo) 1 radha PRN QID PRN TP MUSCLE PAIN; Start 05/15/18 at 05:45; Status UNV Al Hydroxide/Mg Hydroxide (Mylanta Plus Xs) 15 ml PRN AFTMEALHC PRN PO DYSPEPSIA; Start 05/15/18 at 05:45; Status UNV Magnesium Hydroxide (Milk Of Magnesia) 2,400 mg PRN QHS PRN PO CONSTIPATION; Start 05/15/18 at 05:45; Status UNV Levetiracetam (Keppra) 500 mg BID PO Last administered on 06/03/18at 08:11; Start 05/15/18 at 09:00; Stop 06/03/18 at 15:09; Status DC Levothyroxine Sodium (Synthroid) 75 mcg DAILY06 PO Last administered on at 05:36; Start 05/16/18 at 06:00; Stop 06/03/18 at 15:09; Status DC Pantoprazole Sodium (Protonix) 20 mg BIDBFRMEAL PO ; Start 05/15/18 at 16:30; Stop 05/15/18 at 16:30; Status DC Phenobarbital (Luminal) 64.8 mg BID PO Last administered on 06/03/18at 08:10; Start 05/15/18 at 09:00; Stop 06/03/18 at 15:09; Status DC Cetirizine HCl (ZyrTEC) 10 mg HS PO Last administered on 06/02/18at 20:14; Start 05/15/18 at 21:00; Stop 06/03/18 at 15:09; Status DC Multi-Ingred Cream/Lotion/Oil/ Oint (Hydrocerin) 1 radha PRN Q12HR PRN TP DRY SKIN / SCALING; Start 05/15/18 at 07:30; Stop 06/03/18 at 15:09; Status DC Guaifenesin (Guaifenesin) 100 mg PRN Q4HRS PRN PO COUGH; Start 05/15/18 at 07: 30; Stop 05/15/18 at 10:54; Status DC Ibuprofen (Motrin) 400 mg PRN Q4HRS PRN PO INFLAMMATION; Start 05/15/18 at 07: 30; Stop 05/15/18 at 11:10; Status DC Olanzapine (ZyPREXA) 5 mg BID PO Last administered on 06/03/18at 08:08; Start at 09:00; Stop 06/03/18 at 15:09; Status DC Mirtazapine (Remeron) 15 mg QHS PO Last administered on 06/02/18at 20:13; Start 05/15/18 at 21:00; Stop 06/03/18 at 15:09; Status DC Tramadol HCl (Ultram) 50 mg PRN Q8HRS PRN PO PAIN; Start 05/15/18 at 07:30; Stop 06/03/18 at 15:09; Status DC Tramadol HCl (Ultram) 50 mg BID PRN PO PAIN; Start 05/15/18 at 07:30; Stop at 10:54; Status DC Lacosamide (Vimpat) 200 mg BID PO Last administered on 06/03/18at 08:08; Start 05/15/18 at 09:00; Stop 06/03/18 at 15:09; Status DC Calcium Carbonate/ Glycine (Oscal) 500 mg BID PO ; Start 05/15/18 at 21:00; Stop 05/15/18 at 21:00; Status DC Guaifenesin (Robitussin) 100 mg PRN Q4HRS PRN PO COUGH; Start 05/15/18 at 10:30 ; Stop 06/03/18 at 15:09; Status DC Ibuprofen (Motrin) 400 mg PRN Q4HRS PRN PO PAIN Last administered on 05/27/18at 12:17; Start 05/15/18 at 10:30; Stop 06/03/18 at 15:09; Status DC Multi-Ingred Cream/Lotion/Oil/ Oint (Hydrocerin) 120 radha PRN Q12HR PRN TP dry skin; Start 05/15/18 at 10:30; Stop 05/15/18 at 11:07; Status DC Tramadol HCl (Ultram) 50 mg BID PRN PO PAIN; Start 05/15/18 at 10:30; Stop at 13:43; Status DC Tramadol HCl (Ultram) 50 mg PRN Q8HRS PRN PO PAIN; Start 05/15/18 at 10:30; Stop 05/15/18 at 11:25; Status DC Non-Formulary Medication (Cetirizine Hcl ) 10 mg QHS PO ; Start 05/15/18 at 21: 00; Stop 05/15/18 at 21:00; Status DC Non-Formulary Medication (Mirtazapine (Remeron)) 15 mg QHS PO ; Start 05/15/18 at 21:00; Stop 05/15/18 at 21:00; Status DC Non-Formulary Medication (Olanzapine ) 5 mg BID PO ; Start 05/15/18 at 21:00; Stop 05/15/18 at 21:00; Status DC Atorvastatin Calcium (Lipitor) 10 mg QHS PO Last administered on 06/02/18at 20: 14; Start 05/15/18 at 21:00; Stop 06/03/18 at 15:09; Status DC Tramadol HCl (Ultram) 50 mg BID PO Last administered on 06/03/18at 08:10; Start 05/15/18 at 21:00; Stop 06/03/18 at 15:09; Status DC Pantoprazole Sodium (Protonix) 40 mg DAILYAC PO Last administered on 06/03/18at 08:10; Start 05/15/18 at 11:30; Stop 06/03/18 at 15:09; Status DC Buspirone HCl (Buspar) 5 mg BIDWBKFT/JIN PO Last administered on 05/19/18at 12:22 ; Start 05/16/18 at 17:00; Stop 05/19/18 at 16:26; Status DC Buspirone HCl (Buspar) 10 mg BIDWBKFT/JIN PO ; Start 05/20/18 at 08:00; Stop 05/20 at 08:29; Status DC Buspirone HCl (Buspar) 10 mg BIDWBKFT/JIN PO Last administered on 05/22/18at 12: 00; Start 05/20/18 at 08:30; Stop 05/22/18 at 21:00; Status DC Buspirone HCl (Buspar) 15 mg BIDACBL PO Last administered on 05/23/18at 11:58; Start 05/23/18 at 07:30; Stop 05/23/18 at 18:46; Status DC Buspirone HCl (Buspar) 15 mg 0900,1700 PO Last administered on 06/03/18at 08:09 ; Start 05/24/18 at 09:00; Stop 06/03/18 at 15:09; Status DC Active Scripts Active Reported Trazodone Hcl 50 Mg Tablet 50 Mg PO PRN QHS PRN Buspirone Hcl 15 Mg Tablet 15 Mg PO BIDWMEALS Tramadol Hcl (Tramadol HCl) 50 Mg Tablet 50 Mg PO BID Tramadol Hcl (Tramadol HCl) 50 Mg Tablet 50 Mg PO PRN Q8HRS PRN Remeron (Mirtazapine) 15 Mg Tablet 15 Mg PO QHS Olanzapine 5 Mg Tablet 5 Mg PO BID Ibuprofen 400 Mg Tablet 400 Mg PO PRN Q4HRS PRN Guaifenesin 100 Mg/5 Ml Liquid 5 Ml PO PRN Q4HRS PRN Eucerin Creme (Mineral Oil/Petrolatum,White) 120 Gm Cream..g. 120 Gm TP PRN Q12HR PRN Cetirizine Hcl 10 Mg Tablet 10 Mg PO QHS Calcium Carbonate 500 Mg Tablet 500 Mg PO BIDWMEALS Levothyroxine Sodium 50 Mcg Tablet 75 Mcg PO DAILY06 Analgesic Hondo (Methyl Salicylate/Menthol) 28 Gm Oint...g. 1 Radha TP PRN QID PRN Mag-Al Plus Xs Suspension (Mag Hydrox/Al Hydrox/Simeth) 30 Ml Oral.susp 15 Ml PO PRN AFTMEALHC PRN Vimpat (Lacosamide) 200 Mg Tablet 200 Mg PO BID Milk Of Magnesia (Magnesium Hydroxide) 2,400 Mg/10 Ml Oral.susp 2,400 Mg PO PRN QHS PRN Atorvastatin Calcium 10 Mg Tablet 10 Mg PO QHS Pantoprazole Sodium 40 Mg Tablet.dr 40 Mg PO DAILYAC Vitamin D3 (Cholecalciferol (Vitamin D3)) 1,000 Unit Tablet 1,000 Unit PO DAILY Phenobarbital 64.8 Mg Tablet 64.8 Mg PO BID Magnesium Oxide 400 Mg Tablet 400 Mg PO TID Tylenol (Acetaminophen) 325 Mg Tablet 650 Mg PO PRN Q6HRS PRN Keppra (Levetiracetam) 250 Mg Tablet 500 Mg PO BID Ferrous Sulfate 325 Mg Tablet 325 Mg PO BIDAFTMEAL Bisacodyl 10 Mg Supp.rect 10 Mg RC PRN DAILY PRN Felbamate 400 Mg Tablet 400 Mg PO TID I have reviewed the current psychotropics carefully including drug interactions. Risk benefit ratio favors no change other than as noted in my dictated progress note. Diagnosis: Problems: (1) Bipolar affective, mixed, sev w/ psych (2) Functional diarrhea (3) urinary tract infection (4) Left hip arthroplasty (5) Severe major depression with psychotic features (6) Adjustment disorder with depressed mood (7) Bipolar affective, mixed (8) Impulse control disorder (9) Dementia, vascular, with delusions (10) Dementia, vascular, with depression HARVEY QUIJANO MD Jun 03, 2018 22:22
--- NOTE | 2018-06-04 18:33 | DS ---
DATE OF DISCHARGE: 06/03/2018 DISCHARGE SUMMARY, PSYCHIATRIC PROGRESS NOTE This is a late entry, date of service 06/03/2018, covers elements not covered in my initial note. REASON FOR ADMISSION: Please refer to the admission history for details. Briefly, the patient is a 63-year-old female referred back to us from [facility] by her primary care physician and psychiatrist on account of refusing medications, being violent, and having verbal altercation with staff and residents. She appeared extremely anxious, irritable, labile in her mood within the context of her bipolar disorder with psychotic features and referred back for psychiatric stabilization. SIGNIFICANT FINDINGS AND CLINICAL COURSE: Following admission, the patient was seen daily individually by myself from a psychiatric standpoint and medical followup with Dr. Ackerman. The patient was extremely anxious, labile, withdrawn at times, remained in a wheelchair. Adjustments were made in her psychotropics. She seemed to respond to a combination of Remeron 15 mg at bedtime; Zyprexa 5 mg b.i.d.; trazodone 50 mg at bedtime, may repeat x 1 for insomnia; BuSpar 15 mg b.i.d. Prior to discharge on 06/03/2018, ambulation impaired, in wheelchair. No CV, , pulmonary, eye system symptoms on review. MENTAL STATUS EXAM: Oriented to herself and situation. Speech has some latency, coherent. Abstraction fair, computation impaired, language function intact. Mood and affect somewhat withdrawn, less anxious, labile. No suicidal or homicidal ideation. LABORATORY DATA: Reviewed. FINAL DIAGNOSES: Bipolar 1 disorder, mixed with psychotic features; anxiety disorder, unspecified; cognitive disorder, unspecified. Rest unchanged. DISCHARGE MEDICATIONS: Please refer to the [facility]. DISCHARGE INSTRUCTIONS: [facility]. MAN Luis QUIJANO MD DR: LOYD/eboni JOB#: [id number] / [id number]
== END 2018-06-03 14:30 | DRG 885 ==
LOC: ER 23:53 → GEROPSY 05-15 04:17
PROVIDERS: ADMIT Psychiatry & Neurology Psychiatry; ATTEND Psychiatry & Neurology Psychiatry
DX: F31.64 Bipolar disorder, current episode mixed, severe, with psychotic features (principal); E43 Unspecified severe protein-calorie malnutrition; N39.0 Urinary tract infection, site not specified; F01.50 Vascular dementia, unspecified severity, without behavioral disturbance, psychotic disturbance, mood disturbance, and anxiety; F43.21 Adjustment disorder with depressed mood; K59.1 Functional diarrhea; F63.9 Impulse disorder, unspecified; F41.9 Anxiety disorder, unspecified; G40.909 Epilepsy, unspecified, not intractable, without status epilepticus; E03.9 Hypothyroidism, unspecified; E78.5 Hyperlipidemia, unspecified; K21.9 Gastro-esophageal reflux disease without esophagitis; Z96.642 Presence of left artificial hip joint; Z79.899 Other long term (current) drug therapy; Z68.20 Body mass index [BMI] 20.0-20.9, adult
CPT/HCPCS: 36415; 80048; 80053; 80061; 80185; 81001; 82306; 83540; 83550; 83735; 84436; 84443; 84480; 85025; 86592; 93005; 96372; J1200; J1630; J2060; P9612; 99285-25

== ENCOUNTER 2019-01-13 05:52 | Inpatient (IN) | payer MEDICARE, OTHER ==
[~2019-01-13] VITALS: Ht 172.7 cm; Wt 74.6 kg
[~2019-01-13 05:52] MED LIST changes: -BISA10SU2 RC; +BISA10SU4 RC; +BUSP15TA PO; +CALC500T31 PO; +CETI10TA16 PO; +CHOL100013 PO; +GUAI100L12 PO; +IBUP400T18 PO; -MAGN400T3 PO; +MAGN400T5 PO; +METH28OI2 TP; -METH29OI TP; +MINE120C TP; +MIRT15TA PO; +OLAN5TAB9 PO
--- NOTE | 2019-01-13 06:22 | PHYS DOC ---
Past History Past Medical History: Anemia, Dementia, GERD, Hypothyroid, Seizure Past Surgical History: No Surgical History Smoking: Non-smoker Alcohol Use: None Drug Use: None Adult General Chief Complaint Chief Complaint: PSYCH EVALUATION HPI HPI Patient is a 64-year-old female sent from his care facility where she resides for medical clearance for [employer]. By report, she has had increasing behaviors with her roommate. History is limited from the patient due to her past medical history of dementia.[] Review of Systems Review of Systems Constitutional: Denies fever or chills [] Eyes: Denies change in visual acuity, redness, or eye pain [] HENT: Denies nasal congestion or sore throat [] Respiratory: Denies cough or shortness of breath [] Cardiovascular: No chest pain or palpitations[] GI: Denies abdominal pain, nausea, vomiting, bloody stools or diarrhea [] : Denies dysuria or hematuria [] Musculoskeletal: Denies back pain, long-standing shoulder pain bilaterally but worse on the left. No association with exertion.[] Integument: Denies rash or skin lesions [] Neurologic: Denies headache, focal weakness or sensory changes [] Endocrine: Denies polyuria or polydipsia [] All other systems were reviewed and found to be within normal limits, except as documented in this note. Allergies Allergies Allergies Coded Allergies Type Severity Reaction Last Updated Verified clobazam Allergy Intermediate 10/10/17 Yes hydrocodone Allergy Intermediate 10/10/17 Yes vancomycin Allergy Intermediate 10/10/17 Yes Physical Exam Physical Exam Constitutional: Well developed, well nourished, no acute distress, non-toxic appearance. [] HENT: Normocephalic, atraumatic, bilateral external ears normal, oropharynx moist, no oral exudates, nose normal. [] Eyes: PERRLA, EOMI, conjunctiva normal, no discharge. [] Neck: Normal range of motion, no tenderness, supple, no stridor. [] Cardiovascular:Heart rate regular rhythm, no murmur [] Lungs & Thorax: Bilateral breath sounds clear to auscultation [] Abdomen: Bowel sounds normal, soft, no tenderness, no masses, no pulsatile masses. [] Skin: Warm, dry, no erythema, no rash. [] Back: No tenderness, no CVA tenderness. [] Extremities: No tenderness, no cyanosis, no clubbing, decreased but symmetric range of motion bilateral shoulders, no step off or crepitus, no edema. [] Neurologic: Alert and oriented X 2, normal motor function, normal sensory function, no focal deficits noted. [] Psychologic: Affect flat, mood depressed. [] EKG EKG EKG shows a sinus rhythm at 92 bpm, normal axis, normal QTC at 445 ms, no ST elevation. Interpreted by me at 0654[] Radiology/Procedures Radiology/Procedures [] Course & Med Decision Making Course & Med Decision Making Pertinent Labs and Imaging studies reviewed. (See chart for details) ED course: Patient arrived, was placed in bed and tolerated exam well. She was initially reluctant to have the EKG performed. With coaxing this was able to be obtained. At approximately 7:50 AM she was determined to be medically clear with only a phenobarbital level in process. This is a send out lab that will not return in a short time. Awaiting evaluation by specialist construction cost estimator via a remote telepresence unit. She was evaluated by the specialists on-call, as she would not speak to them. Stan agee is medically stable and has been throughout her emergency department visit. She was admitted in improved condition. Oswaldo decision makin-year-old female with dementia and behavioral issues who does not have an acute medical issue present at this time. No evidence of stroke syndrome, urinary tract infection, nor significant electrolyte abnormality. Phenobarbital level is in process.[] Dragon Disclaimer Dragon Disclaimer This electronic medical record was generated, in whole or in part, using a voice recognition dictation system. Departure Departure: Impression: Primary Impression: Medical clearance for psychiatric admission Disposition: ADMITTED INPATIENT Admitting Physician: Other Condition: IMPROVED Referrals: PEGGY ENGLE MPH, MD (PCP) IVETTE GRANADO DO Jan 13, 2019 06:22
--- NOTE | 2019-01-13 07:08 | EKG ---
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
[2019-01-13 07:17] LABS: ALBUMIN 3.5 g/dL (3.4-5.0); ALBUMIN/GLOBULIN RATIO 0.9 (1.0-1.7); CALCIUM 9.3 mg/dL (8.5-10.1); CREATININE 0.7 mg/dL (0.6-1.0); GFR 83.7; MAGNESIUM 1.9 mg/dL (1.8-2.4); POTASSIUM 3.7 mmol/L (3.5-5.1); TOTAL BILIRUBIN 0.2 mg/dL (0.2-1.0); TOTAL PROTEIN 7.5 g/dL (6.4-8.2)
[2019-01-13 07:20] LABS: BASO # 0.1 x10^3/uL (0.0-0.2); BASO % 1 % (0-3); EOS % 4 % (0-3); LYMPH # 2.3 x10^3/uL (1.0-4.8); LYMPH % 25 % (24-48); MEAN CORPUSCULAR HEMOGLOBIN 32 pg (25-35); MEAN CORPUSCULAR HGB CONC 34 g/dL (31-37); MEAN CORPUSCULAR VOLUME 95 fL (79-100); MONO % 13 % (0-9); NEUT % 57 % (31-73)
[2019-01-13 07:23] LABS: HEMATOCRIT 38.9 % (36.0-47.0); HEMOGLOBIN 13.1 g/dL (12.0-15.5); NEUT # 5.3 x10^3uL (1.8-7.7); PLATELET COUNT 211 x10^3/uL (140-400); RED BLOOD COUNT 4.08 x10^6/uL (3.50-5.40); RED CELL DISTRIBUTION WIDTH 13.4 % (11.5-14.5); WHITE BLOOD COUNT 9.3 x10^3/uL (4.0-11.0)
[2019-01-13 07:24] LABS: EOS # 0.3 x10^3/uL (0.0-0.7); MONO # 1.2 x10^3/uL (0.0-1.1)
[2019-01-13 07:36] LABS: BILIRUBIN,URINE NEG (NEG); CLARITY,URINE CLEAR; COLOR,URINE YELLOW; GLUCOSE,URINE NEG (NEG)
[2019-01-13 07:37] LABS: BACTERIA,URINE MANY /HPF (0-FEW); NITRITE,URINE NEG (NEG); RBC,URINE 0 /HPF (0-2); UROBILINOGEN,URINE 0.2 mg/dL (0.2 mg/dL); WBC,URINE RARE /HPF (0-4)
[2019-01-13 09:13] LABS: PLT ESTIMATE ADEQUATE (ADEQUATE)
[2019-01-13] MEDS ORDERED: ACETAMINOPHEN 325 MG TABLET PO PRN ×3 (10:15→12:45)
[2019-01-13] MEDS ORDERED: IBUPROFEN 400 MG TABLET. PO PRN (10:15)
[2019-01-13] MEDS ORDERED: MINERAL OIL/PETROLATUM TOPICAL CREAM 113GM JAR. TP PRN ×2 (10:15→11:00)
[2019-01-13] MEDS ORDERED: guaiFENesin 300 MG/15 ML LIQUID PO PRN ×2 (10:15→11:00)
[2019-01-13] MEDS ORDERED: BISACODYL 10 MG SUPP.RECT RC PRN ×2 (10:15→11:00)
[2019-01-13] MEDS ORDERED: NON FORMULARY ITEM (Magnesium Hydroxide (Milk Of Magnesia) 2,400 MG) PO PRN (10:15)
[2019-01-13] MEDS ORDERED: METHYL SALICYLATE/MENTHOL TOPICAL OINTMENT 57GM TUBE. TP PRN ×3 (10:15→12:45)
[2019-01-13] MEDS ORDERED: traZODone 50 MG TABLET. PO PRN (10:15)
[2019-01-13] MEDS ORDERED: traMADol 50 MG TABLET PO PRN (10:15)
[2019-01-13] MEDS ORDERED: MAG HYDROX/AL HYDROX/SIMETH 30 ML ORAL.SUSP PO PRN ×3 (10:15→12:45)
[2019-01-13] MEDS ORDERED: MAGNESIUM HYDROXIDE 2,400 MG/30 ML ORAL.SUSP. PO PRN ×2 (11:00→12:45)
[2019-01-13 11:24] VITALS: BP 135/81
[2019-01-13] MEDS: LORazepam 0.5 MG TABLET PO PRN ×3 (12:35→21:43)
[2019-01-13] MEDS ORDERED: FELBAMATE 400 MG TABLET PO SCH (14:00)
[2019-01-13] MEDS ORDERED: MAGNESIUM OXIDE 400 MG TABLET PO SCH (14:00)
[2019-01-13] MEDS: FELBAMATE 400 MG TABLET PO SCH ×2 (14:12→20:17)
[2019-01-13] MEDS: MAGNESIUM OXIDE 400 MG TABLET PO SCH ×2 (14:12→20:16)
[2019-01-13 16:40] VITALS: BP 141/95
[2019-01-13] MEDS ORDERED: busPIRone 15 MG TABLET. PO SCH (17:00)
[2019-01-13] MEDS ORDERED: CALCIUM CARBONATE 500 MG TABLET PO SCH (17:00)
[2019-01-13] MEDS: busPIRone 15 MG TABLET. PO SCH (17:09)
[2019-01-13] MEDS: FERROUS SULFATE 325 MG TABLET. PO SCH (17:09)
[2019-01-13] MEDS: CALCIUM CARBONATE 500 MG TABLET PO SCH (17:09)
[2019-01-13] MEDS ORDERED: FERROUS SULFATE 325 MG TABLET. PO SCH (18:00)
[2019-01-13] MEDS: PHENobarbital 32.4 MG TABLET. PO SCH (20:16)
[2019-01-13] MEDS: MIRTAZAPINE 15 MG TABLET PO SCH (20:16)
[2019-01-13] MEDS: LACOSAMIDE 50 MG TABLET PO SCH (20:17)
[2019-01-13] MEDS: levETIRAcetam 500 MG TABLET PO SCH (20:18)
[2019-01-13] MEDS: OLANZapine 5 MG TABLET PO SCH (20:18)
[2019-01-13] MEDS: traMADol 50 MG TABLET PO SCH (20:18)
[2019-01-13] MEDS: CETIRIZINE HCL 10 MG TABLET PO SCH (20:18)
[2019-01-13] MEDS: ATORVASTATIN CALCIUM 10 MG TABLET. PO SCH (20:19)
[2019-01-13] MEDS ORDERED: PHENOBARBITAL 64.8 MG PO SCH (21:00)
[2019-01-13] MEDS ORDERED: traMADol 50 MG TABLET PO SCH (21:00)
[2019-01-13] MEDS ORDERED: LACOSAMIDE 200 MG PO SCH (21:00)
[2019-01-13] MEDS ORDERED: CETIRIZINE HCL 10 MG TABLET PO SCH (21:00)
[2019-01-13] MEDS ORDERED: OLANZapine 5 MG TABLET PO SCH (21:00)
[2019-01-13] MEDS ORDERED: MIRTAZAPINE 15 MG TABLET PO SCH (21:00)
[2019-01-13] MEDS ORDERED: ATORVASTATIN CALCIUM 10 MG TABLET. PO SCH (21:00)
[2019-01-13] MEDS ORDERED: levETIRAcetam 250 MG TABLET PO SCH (21:00)
--- NOTE | 2019-01-13 22:19 | PDOC ---
Exam Note: David Note: Please also refer to the separate dictated note~for this date of service dictated separately. Discussed the patient with Nursing staff reviewed the chart.~Reviewed interim history and current functioning. Reviewed vital signs,~Labs/ Radiology~and current medications noted below. Continue current treatment with the changes noted in the dictated addendum note Assessment: Vital Signs/I&O: Vital Signs Date Time Temp Pulse Resp B/P (MAP) Pulse Ox O2 Delivery O2 Flow Rate FiO2 01/13/19 20:18 Room Air 01/13/19 16:40 98.1 96 20 141/95 (110) 97 Labs: Laboratory Tests Test 01/13/19 06:40 01/13/19 07:00 White Blood Count 9.3 x10^3/uL (4.0-11.0) Red Blood Count 4.08 x10^6/uL (3.50-5.40) Hemoglobin 13.1 g/dL (12.0-15.5) Hematocrit 38.9 % (36.0-47.0) Mean Corpuscular Volume 95 fL (79-100) Mean Corpuscular Hemoglobin 32 pg (25-35) Mean Corpuscular Hemoglobin Concent 34 g/dL (31-37) Red Cell Distribution Width 13.4 % (11.5-14.5) Platelet Count 211 x10^3/uL (140-400) Neutrophils (%) (Auto) 57 % (31-73) Lymphocytes (%) (Auto) 25 % (24-48) Monocytes (%) (Auto) 13 % (0-9) H Eosinophils (%) (Auto) 4 % (0-3) H Basophils (%) (Auto) 1 % (0-3) Neutrophils # (Auto) 5.3 x10^3uL (1.8-7.7) Lymphocytes # (Auto) 2.3 x10^3/uL (1.0-4.8) Monocytes # (Auto) 1.2 x10^3/uL (0.0-1.1) H Eosinophils # (Auto) 0.3 x10^3/uL (0.0-0.7) Basophils # (Auto) 0.1 x10^3/uL (0.0-0.2) Platelet Estimate Adequate (ADEQUATE) Sodium Level 141 mmol/L (136-145) Potassium Level 3.7 mmol/L (3.5-5.1) Chloride Level 103 mmol/L (98-107) Carbon Dioxide Level 28 mmol/L (21-32) Anion Gap 10 (6-14) Blood Urea Nitrogen 15 mg/dL (7-20) Creatinine 0.7 mg/dL (0.6-1.0) Estimated GFR (Cockcroft-Gault) 83.7 BUN/Creatinine Ratio 21 (6-20) H Glucose Level 109 mg/dL (70-99) H Calcium Level 9.3 mg/dL (8.5-10.1) Magnesium Level 1.9 mg/dL (1.8-2.4) Total Bilirubin 0.2 mg/dL (0.2-1.0) Aspartate Amino Transferase (AST) 14 U/L (15-37) L Alanine Aminotransferase (ALT) 15 U/L (14-59) Alkaline Phosphatase 112 U/L (46-116) Total Protein 7.5 g/dL (6.4-8.2) Albumin 3.5 g/dL (3.4-5.0) Albumin/Globulin Ratio 0.9 (1.0-1.7) L Phenobarbital Level 27.0 mcg/mL (15.0-40.0) Phenobarbital Last Dose Date 01/13/19 Phenobarbital Last Dose Time 0001 Urine Collection Type U cath Urine Color Yellow Urine Clarity Clear Urine pH 7.5 Urine Specific [place] 1.015 Urine Protein Neg (NEG-TRACE) Urine Glucose (UA) Neg mg/dL (NEG) Urine Ketones (Stick) Neg mg/dL (NEG) Urine Blood Neg (NEG) Urine Nitrite Neg (NEG) Urine Bilirubin Neg (NEG) Urine Urobilinogen Dipstick 0.2 mg/dL (0.2 mg/dL) Urine Leukocyte Esterase Neg (NEG) Urine RBC 0 /HPF (0-2) Urine WBC Rare /HPF (0-4) Urine Squamous Epithelial Cells None /LPF Urine Bacteria Many /HPF (0-FEW) Current Medications: Meds: Current Medications Medications (Trade) Dose Ordered Sig/Antoni Route PRN Reason Start Time Stop Time Status Last Admin Dose Admin Atorvastatin Calcium (Lipitor) 10 mg QHS PO 01/13/19 21:00 01/13/19 20:19 Buspirone HCl (Buspar) 15 mg BIDWMEALS PO 01/13/19 17:00 01/13/19 17:09 Calcium Carbonate/ Glycine (Oscal) 500 mg BIDWMEALS PO 01/13/19 17:00 01/13/19 17:09 Cetirizine HCl (ZyrTEC) 10 mg QHS PO 01/13/19 21:00 01/13/19 20:18 Felbamate (Felbatol) 400 mg TID PO 01/13/19 14:00 01/13/19 20:17 Ferrous Sulfate (Feosol) 325 mg BIDAFTMEAL PO 01/13/19 18:00 01/13/19 17:09 Levetiracetam (Keppra) 500 mg BID PO 01/13/19 21:00 01/13/19 20:18 Magnesium Oxide (Magnesium Oxide) 400 mg TID PO 01/13/19 14:00 01/13/19 20:16 Mirtazapine (Remeron) 15 mg QHS PO 01/13/19 21:00 01/13/19 20:16 Olanzapine (ZyPREXA) 5 mg BID PO 01/13/19 21:00 01/13/19 20:18 Tramadol HCl (Ultram) 50 mg BID PO 01/13/19 21:00 01/13/19 20:18 Lacosamide (Vimpat) 200 mg BID PO 01/13/19 21:00 01/13/19 20:17 Phenobarbital (Luminal) 64.8 mg BID PO 01/13/19 21:00 01/13/19 20:16 Olanzapine (ZyPREXA ZYDIS) 2.5 mg PRN Q2HR PRN PO PSYCHOSIS 01/13/19 12:30 01/13/19 21:43 Lorazepam (Ativan) 0.5 mg PRN Q2HR PRN PO ANXIETY / AGITATION 01/13/19 12:30 01/13/19 21:43 I have reviewed the current psychotropics carefully including drug interactions. Risk benefit ratio favors no change other than as noted in my dictated progress note. Diagnosis: Problems: (1) Adjustment disorder with depressed mood (2) Bipolar affective, mixed (3) Dementia, vascular, with delusions (4) Dementia, vascular, with depression (5) Bipolar affective, mixed, sev w/ psych (6) Impulse control disorder HARVEY QUIJANO MD Jan 13, 2019 22:19
[2019-01-14] MEDS: LEVOTHYROXINE 75 MCG TABLET PO SCH (05:38)
[2019-01-14 06:00] VITALS: BP 101/68
[2019-01-14] MEDS ORDERED: LEVOTHYROXINE 50 MCG TABLET PO SCH (06:00)
[2019-01-14 06:49] LABS: BASO # 0.1 x10^3/uL (0.0-0.2); BASO % 1 % (0-3); EOS # 0.4 x10^3/uL (0.0-0.7); EOS % 6 % (0-3); HEMATOCRIT 36.6 % (36.0-47.0); HEMOGLOBIN 12.4 g/dL (12.0-15.5); LYMPH % 34 % (24-48); MEAN CORPUSCULAR HEMOGLOBIN 32 pg (25-35); MEAN CORPUSCULAR HGB CONC 34 g/dL (31-37); MEAN CORPUSCULAR VOLUME 95 fL (79-100); MONO # 0.9 x10^3/uL (0.0-1.1); MONO % 15 % (0-9); NEUT # 2.7 x10^3uL (1.8-7.7); NEUT % 44 % (31-73); PLATELET COUNT 203 x10^3/uL (140-400); RED BLOOD COUNT 3.86 x10^6/uL (3.50-5.40); RED CELL DISTRIBUTION WIDTH 13.5 % (11.5-14.5); WHITE BLOOD COUNT 6.1 x10^3/uL (4.0-11.0)
[2019-01-14 07:01] LABS: PHENY < 0.6 mcg/mL (10.0-20.0)
[2019-01-14 07:04] LABS: ALBUMIN 3.2 g/dL (3.4-5.0); ALBUMIN/GLOBULIN RATIO 0.9 (1.0-1.7); CALCIUM 8.8 mg/dL (8.5-10.1); CREATININE 0.7 mg/dL (0.6-1.0); GFR 83.7; MAGNESIUM 2.1 mg/dL (1.8-2.4); POTASSIUM 3.5 mmol/L (3.5-5.1); TOTAL BILIRUBIN 0.4 mg/dL (0.2-1.0); TOTAL PROTEIN 6.9 g/dL (6.4-8.2)
[2019-01-14] MEDS ORDERED: PANTOPRAZOLE 40 MG TABLET. PO SCH (07:30)
[2019-01-14] MEDS: FERROUS SULFATE 325 MG TABLET. PO SCH ×2 (08:37→17:30)
[2019-01-14] MEDS: FELBAMATE 400 MG TABLET PO SCH ×3 (08:37→20:22)
[2019-01-14] MEDS: MAGNESIUM OXIDE 400 MG TABLET PO SCH ×3 (08:37→20:17)
[2019-01-14] MEDS: CALCIUM CARBONATE 500 MG TABLET PO SCH ×2 (08:37→17:30)
[2019-01-14] MEDS: busPIRone 15 MG TABLET. PO SCH ×2 (08:38→17:30)
[2019-01-14] MEDS: CHOLECALCIFEROL (VITAMIN D3) 1,000 UNIT TABLET PO SCH (08:38)
[2019-01-14] MEDS: LACOSAMIDE 50 MG TABLET PO SCH ×2 (08:38→20:25)
[2019-01-14] MEDS: traMADol 50 MG TABLET PO SCH ×2 (08:38→20:23)
[2019-01-14] MEDS: levETIRAcetam 500 MG TABLET PO SCH ×2 (08:38→20:17)
[2019-01-14] MEDS: PANTOPRAZOLE 40 MG TABLET. PO SCH (08:40)
[2019-01-14] MEDS: PHENobarbital 32.4 MG TABLET. PO SCH ×2 (08:40→20:23)
[2019-01-14] MEDS: OLANZapine 5 MG TABLET PO SCH ×2 (08:41→20:16)
[2019-01-14] MEDS ORDERED: CHOLECALCIFEROL (VITAMIN D3) 1,000 UNIT TABLET PO SCH (09:00)
[2019-01-14] MEDS ORDERED: FLU VAX QS 2019-20 (36MOS+)/PF 0.5 ML SYRINGE. VAX IM ONE (09:00)
--- NOTE | 2019-01-14 14:27 | HP ---
ADMIT DATE: 01/13/2019 This late entry 01/13 covers elements not covered in my initial note. I met with the patient evening of 01/13, previously discussed with nursing staff, reviewed the chart and discussed with Amanda Mehta, hardware installation coordinator and Consuelo García RN after the patient was referred to us from [facility] because of unmanageable, aggressive, disruptive and psychotic symptoms; having failed outpatient psychiatric interventions. Behaviors were deemed dangerous, unmanageable resulting in this referral. The patient reportedly has been yelling, hitting, highly combative, aggressive, disruptive, psychotic, totally unmanageable with worsening mood swings consequent to her bipolar disorder and worsening vascular dementia. CHIEF COMPLAINT: "I don't do those things." HISTORY OF PRESENT ILLNESS: The patient has a history of bipolar disorder, mixed with psychotic features. She has been with us here in the past on several occasions inpatient and then has been residing at the various nursing homes, most recently at [facility]. Reportedly, recently, she has been highly combative, yelling, hitting, paranoid, suspicious, aggressive. Attempts at adjustments in her psychotropics have failed. She has appeared more confused resulting in this referral. PAST PSYCHIATRIC HISTORY: Multiple psychiatric hospitalizations including several on our unit. MEDICAL HISTORY: Positive for hyperlipidemia, hypothyroidism, incontinence, seizure disorder. CODE STATUS: Full code. ALLERGIES: CLOBAZAM, HYDROCODONE, VANCOMYCIN. ACCU-CHEKS: None. DIET: Mechanical soft, ground meat. Ambulates in wheelchair. UA 01/13, sent to [facility]. CURRENT PSYCHOTROPICS: BuSpar 15 mg b.i.d., Remeron 15 mg at bedtime, Zyprexa 5 mg b.i.d. and p.r.n. along with Ativan p.r.n. FAMILY HISTORY: Noncontributory. SOCIAL HISTORY: No history of alcohol, drug abuse; physical, sexual or elder abuse history is noted. She is not known to be a perpetrator. REACTION TO HOSPITALIZATION: The patient accepting of it. ASSETS: Supportive living at the above facility. MENTAL STATUS EXAMINATION: The patient was seen individually evening of 01/13. She is in her wheelchair, seem to recognize me. Speech has some latency, often responses monosyllabic. Abstraction fair, computation impaired, language function intact, attention span short. She appears somewhat withdrawn, paranoid, suspicious, often verbal responses monosyllabic. No active suicidal or homicidal ideation. IMPRESSION: Bipolar 1 disorder, mixed with psychotic features; major neurocognitive disorder, multifactorial with delusion, depression, behavioral disturbance; anxiety disorder, unspecified; impulse control disorder, unspecified. Rest as above. PLAN: Admit to Geropsychiatry Unit at [facility]. I will see the patient daily individually from a psychiatric standpoint. Medical followup per Dr. Ackerman. We will continue the patient on her current psychotropics. Consider starting her on Depakote as a mood stabilizer. May change the Zyprexa to Risperdal depending on how psychotic she appears on baseline assessment. We will make further adjustments post baseline assessment. Estimated length of stay 10-12 days. DISPOSITION: Plans back to snf. MAN Luis QUIJANO MD DR: LOYD/eboni JOB#: [id number] / [id number]
[2019-01-14 16:11] VITALS: BP 108/77
[2019-01-14 17:09] LABS: THYROID STIM HORMONE (TSH) 3.573 uIU/mL (0.358-3.740)
[2019-01-14 19:12] LABS: THYROXINE 6.5 ug/dL (4.5-12.0)
[2019-01-14] MEDS: ATORVASTATIN CALCIUM 10 MG TABLET. PO SCH (20:16)
[2019-01-14] MEDS: CETIRIZINE HCL 10 MG TABLET PO SCH (20:17)
[2019-01-14] MEDS: MIRTAZAPINE 15 MG TABLET PO SCH (20:17)
[2019-01-14] MEDS: DIVALPROEX ER 500 MG TAB.ER.24H PO SCH (20:23)
--- NOTE | 2019-01-14 21:32 | PDOC ---
Exam Note: David Note: Please also refer to the separate dictated note~for this date of service dictated separately.~Patient seen individually. Discussed the patient with Nursing staff reviewed the chart.~Reviewed interim history and current functioning. Reviewed vital signs,~Labs/ Radiology~and current medications noted below. Continue current treatment with the changes noted in the dictated addendum note Assessment: Vital Signs/I&O: Vital Signs Date Time Temp Pulse Resp B/P (MAP) Pulse Ox O2 Delivery O2 Flow Rate FiO2 01/14/19 16:11 97.2 104 22 108/77 (87) 96 01/13/19 20:18 Room Air I & O 01/13/19 01/13/19 01/14/19 14:59 22:59 06:59 Intake Total 240 ml 0 ml Balance 240 ml 0 ml Labs: Laboratory Tests Test 01/14/19 06:40 White Blood Count 6.1 x10^3/uL (4.0-11.0) Red Blood Count 3.86 x10^6/uL (3.50-5.40) Hemoglobin 12.4 g/dL (12.0-15.5) Hematocrit 36.6 % (36.0-47.0) Mean Corpuscular Volume 95 fL (79-100) Mean Corpuscular Hemoglobin 32 pg (25-35) Mean Corpuscular Hemoglobin Concent 34 g/dL (31-37) Red Cell Distribution Width 13.5 % (11.5-14.5) Platelet Count 203 x10^3/uL (140-400) Neutrophils (%) (Auto) 44 % (31-73) Lymphocytes (%) (Auto) 34 % (24-48) Monocytes (%) (Auto) 15 % (0-9) H Eosinophils (%) (Auto) 6 % (0-3) H Basophils (%) (Auto) 1 % (0-3) Neutrophils # (Auto) 2.7 x10^3uL (1.8-7.7) Lymphocytes # (Auto) 2.0 x10^3/uL (1.0-4.8) Monocytes # (Auto) 0.9 x10^3/uL (0.0-1.1) Eosinophils # (Auto) 0.4 x10^3/uL (0.0-0.7) Basophils # (Auto) 0.1 x10^3/uL (0.0-0.2) Sodium Level 140 mmol/L (136-145) Potassium Level 3.5 mmol/L (3.5-5.1) Chloride Level 102 mmol/L (98-107) Carbon Dioxide Level 30 mmol/L (21-32) Anion Gap 8 (6-14) Blood Urea Nitrogen 19 mg/dL (7-20) Creatinine 0.7 mg/dL (0.6-1.0) Estimated GFR (Cockcroft-Gault) 83.7 BUN/Creatinine Ratio 27 (6-20) H Glucose Level 91 mg/dL (70-99) Calcium Level 8.8 mg/dL (8.5-10.1) Magnesium Level 2.1 mg/dL (1.8-2.4) Total Bilirubin 0.4 mg/dL (0.2-1.0) Aspartate Amino Transferase (AST) 17 U/L (15-37) Alanine Aminotransferase (ALT) 14 U/L (14-59) Alkaline Phosphatase 101 U/L (46-116) Total Protein 6.9 g/dL (6.4-8.2) Albumin 3.2 g/dL (3.4-5.0) L Albumin/Globulin Ratio 0.9 (1.0-1.7) L Phenytoin (Dilantin) Level < 0.6 mcg/mL (10.0-20.0) L Phenytoin Last Dose Date 01/13/2019 Phenytoin Last Dose Time 2100 Current Medications: Meds: Current Medications Medications (Trade) Dose Ordered Sig/Antoni Route PRN Reason Start Time Stop Time Status Last Admin Dose Admin Vitamin D (Vitamin D3) 1,000 unit DAILY PO 01/14/19 09:00 01/14/19 08:38 Levothyroxine Sodium (Synthroid) 75 mcg DAILY06 PO 01/14/19 06:00 01/14/19 05:38 Pantoprazole Sodium (Protonix) 40 mg DAILYAC PO 01/14/19 07:30 01/14/19 08:40 Influenza Virus Vaccine Quadrival (Afluria Quad 2018- (3yr Up) Syringe) 0.5 ml ONCE ONCE VAX IM 01/14/19 09:00 01/14/19 09:01 DC 01/14/19 14:12 Divalproex Sodium (Depakote Er) 500 mg QHS PO 01/14/19 21:00 01/14/19 20:23 I have reviewed the current psychotropics carefully including drug interactions. Risk benefit ratio favors no change other than as noted in my dictated progress note. Diagnosis: Problems: (1) Adjustment disorder with depressed mood (2) Bipolar affective, mixed (3) Impulse control disorder (4) Dementia, vascular, with delusions (5) Dementia, vascular, with depression (6) Bipolar affective, mixed, sev w/ psych HARVEY QUIJANO MD Jan 14, 2019 21:32
[2019-01-15 02:12] LABS: HEMOGLOBIN A1C 5.3 % (4.8-5.6)
[2019-01-15 05:50] VITALS: BP 100/60
[2019-01-15] MEDS: LEVOTHYROXINE 75 MCG TABLET PO SCH (05:52)
[2019-01-15] MEDS: CHOLECALCIFEROL (VITAMIN D3) 1,000 UNIT TABLET PO SCH (07:31)
[2019-01-15] MEDS: OLANZapine 5 MG TABLET PO SCH ×2 (07:31→20:36)
[2019-01-15] MEDS: LACOSAMIDE 50 MG TABLET PO SCH ×2 (07:31→20:36)
[2019-01-15] MEDS: levETIRAcetam 500 MG TABLET PO SCH ×2 (07:31→20:24)
[2019-01-15] MEDS: busPIRone 15 MG TABLET. PO SCH ×2 (07:31→17:32)
[2019-01-15] MEDS: PANTOPRAZOLE 40 MG TABLET. PO SCH (07:31)
[2019-01-15] MEDS: FERROUS SULFATE 325 MG TABLET. PO SCH ×2 (07:32→17:32)
[2019-01-15] MEDS: MAGNESIUM OXIDE 400 MG TABLET PO SCH ×3 (07:32→20:25)
[2019-01-15] MEDS: PHENobarbital 32.4 MG TABLET. PO SCH ×2 (07:32→20:35)
[2019-01-15] MEDS: CALCIUM CARBONATE 500 MG TABLET PO SCH ×2 (07:32→17:32)
[2019-01-15] MEDS: traMADol 50 MG TABLET PO SCH ×3 (07:33→13:27)
[2019-01-15] MEDS: FELBAMATE 400 MG TABLET PO SCH ×3 (07:37→20:49)
[2019-01-15 17:07] VITALS: BP 104/75
[2019-01-15] MEDS: DIVALPROEX ER 500 MG TAB.ER.24H PO SCH (20:23)
[2019-01-15] MEDS: ATORVASTATIN CALCIUM 10 MG TABLET. PO SCH (20:24)
[2019-01-15] MEDS: MIRTAZAPINE 15 MG TABLET PO SCH (20:25)
[2019-01-15] MEDS: CETIRIZINE HCL 10 MG TABLET PO SCH (20:36)
--- NOTE | 2019-01-15 21:53 | PDOC ---
Exam Note: David Note: Please also refer to the separate dictated note~for this date of service dictated separately.~Patient seen individually. Discussed the patient with Nursing staff reviewed the chart.~Reviewed interim history and current functioning. Reviewed vital signs,~Labs/ Radiology~and current medications noted below. Continue current treatment with the changes noted in the dictated addendum note Assessment: Vital Signs/I&O: Vital Signs Date Time Temp Pulse Resp B/P (MAP) Pulse Ox O2 Delivery O2 Flow Rate FiO2 01/15/19 17:07 98.1 86 18 104/75 (85) 97 01/14/19 21:30 Room Air I & O 01/14/19 01/14/19 01/15/19 15:00 23:00 07:00 Intake Total 960 ml 330 ml Balance 960 ml 330 ml Current Medications: I have reviewed the current psychotropics carefully including drug interactions. Risk benefit ratio favors no change other than as noted in my dictated progress note. Diagnosis: Problems: (1) Adjustment disorder with depressed mood (2) Bipolar affective, mixed (3) Impulse control disorder (4) Dementia, vascular, with delusions (5) Dementia, vascular, with depression (6) Bipolar affective, mixed, sev w/ psych HARVEY QUIJANO MD Jan 15, 2019 21:53
[2019-01-16] MEDS: LEVOTHYROXINE 75 MCG TABLET PO SCH (05:49)
[2019-01-16 06:05] VITALS: BP 91/61
[2019-01-16] MEDS: CHOLECALCIFEROL (VITAMIN D3) 1,000 UNIT TABLET PO SCH (07:55)
[2019-01-16] MEDS: busPIRone 15 MG TABLET. PO SCH ×2 (07:55→17:26)
[2019-01-16] MEDS: FERROUS SULFATE 325 MG TABLET. PO SCH ×2 (07:55→17:26)
[2019-01-16] MEDS: CALCIUM CARBONATE 500 MG TABLET PO SCH ×2 (07:55→17:26)
[2019-01-16] MEDS: FELBAMATE 400 MG TABLET PO SCH ×3 (07:56→19:39)
[2019-01-16] MEDS: PHENobarbital 32.4 MG TABLET. PO SCH ×2 (07:57→19:38)
[2019-01-16] MEDS: PANTOPRAZOLE 40 MG TABLET. PO SCH (07:57)
[2019-01-16] MEDS: OLANZapine 5 MG TABLET PO SCH ×2 (07:57→19:38)
[2019-01-16] MEDS: levETIRAcetam 500 MG TABLET PO SCH ×2 (07:57→19:39)
[2019-01-16] MEDS: MAGNESIUM OXIDE 400 MG TABLET PO SCH ×3 (07:57→19:41)
[2019-01-16] MEDS: LACOSAMIDE 50 MG TABLET PO SCH ×2 (07:58→19:38)
[2019-01-16] MEDS: LORazepam 0.5 MG TABLET PO PRN (10:48)
[2019-01-16] MEDS: LIDOCAINE (700MG/PATCH) PATCH. TD SCH (14:00)
[2019-01-16 16:29] VITALS: BP 101/71
[2019-01-16] MEDS: CETIRIZINE HCL 10 MG TABLET PO SCH (19:38)
[2019-01-16] MEDS: ATORVASTATIN CALCIUM 10 MG TABLET. PO SCH (19:38)
[2019-01-16] MEDS: DIVALPROEX ER 500 MG TAB.ER.24H PO SCH (19:38)
[2019-01-16] MEDS: MIRTAZAPINE 15 MG TABLET PO SCH (19:39)
[2019-01-16] MEDS: CEFDINIR 300 MG CAPSULE PO SCH (19:41)
[2019-01-16] MEDS: traMADol 50 MG TABLET PO SCH (19:41)
[2019-01-16] MEDS: PATCH REMOVAL. MC SCH (20:42)
--- NOTE | 2019-01-16 21:43 | PDOC ---
Exam Note: David Note: Please also refer to the separate dictated note~for this date of service dictated separately.~Patient seen individually. Discussed the patient with Nursing staff reviewed the chart.~Reviewed interim history and current functioning. Reviewed vital signs,~Labs/ Radiology~and current medications noted below. Continue current treatment with the changes noted in the dictated addendum note Assessment: Vital Signs/I&O: Vital Signs Date Time Temp Pulse Resp B/P (MAP) Pulse Ox O2 Delivery O2 Flow Rate FiO2 01/16/19 20:41 Room Air 01/16/19 16:29 98.3 60 16 101/71 (81) 98 I & O 01/15/19 01/15/19 01/16/19 15:00 23:00 07:00 Intake Total 0 ml 720 ml 120 ml Balance 0 ml 720 ml 120 ml Current Medications: Meds: Current Medications Medications (Trade) Dose Ordered Sig/Antoni Route PRN Reason Start Time Stop Time Status Last Admin Dose Admin Cefdinir (Omnicef) 300 mg BID PO 01/16/19 21:00 01/23/19 21:00 01/16/19 19:41 Miscellaneous (Lidoderm Patch Removal) 1 ea QHS 01/16/19 21:00 01/16/19 20:42 I have reviewed the current psychotropics carefully including drug interactions. Risk benefit ratio favors no change other than as noted in my dictated progress note. Diagnosis: Problems: (1) Adjustment disorder with depressed mood (2) Bipolar affective, mixed (3) Impulse control disorder (4) Dementia, vascular, with delusions (5) Dementia, vascular, with depression (6) Bipolar affective, mixed, sev w/ psych (7) Severe major depression with psychotic features HARVEY QUIJANO MD Jan 16, 2019 21:43
[2019-01-16] MEDS: IBUPROFEN 400 MG TABLET. PO PRN (22:10)
--- NOTE | 2019-01-16 23:12 | PN ---
DATE: 01/15/2019 PSYCHIATRIC PROGRESS NOTE. This late entry of 01/15/2019 covers the elements not covered in my initial note. SUBJECTIVE: I met with the patient in the evening and staffed at a treatment team meeting with the entire team in the morning. The patient slept 7-3/4 hours previous night. She has been quite labile, anxious through her Gatorade at the staff shortly after admission. Compliant with her medications, refusing to speak to the nurse. Hitting and grabbing staff, hit the door with her wheelchair. UA has reflex to culture, this may account for some of her agitation. REVIEW OF SYSTEMS: Ambulation impaired, in wheelchair. No CV, , pulmonary, eye system symptoms on review. MENTAL STATUS EXAM: Oriented to herself and situation. Speech has some latency, low in volume, coherent, abstraction fair, computation impaired, language function intact, attention span short. Mood and affect remain somewhat withdrawn at times, labile. LABORATORY DATA: Reviewed. IMPRESSION: Unchanged from initial note. PLAN: No change from initial note. We have initiated Depakote, will adjust to reach therapeutic level. HARVEY QUIJANO MD DR: LOYD/eboni JOB#: [id number] / [id number]
--- NOTE | 2019-01-17 04:41 | PN ---
DATE: 01/14/2019 This late entry, 01/14/2019, covers elements not covered in my initial note. SUBJECTIVE: I met with the patient on evening of 01/14/2019. According to LION Turner, the patient remains somewhat withdrawn and gets a little irritable at times. Previous night, she was combative, extremely disruptive, had to be placed on the mat on the floor, had received Zyprexa and Ativan at 2200, slept in the quiet room, refuses to answer questions, and received a flu shot. Phenobarbital level is 27 and phenytoin is 0.6. We will defer to Dr. York, Neurology, for a seizure disorder management. REVIEW OF SYSTEMS: Ambulation impaired and in wheelchair. No CV, , pulmonary, and eye system symptoms on review. MENTAL STATUS EXAM: Oriented to herself and situation. Speech, moderate latency and often responses monosyllabic. Abstraction, fair. Computation impaired, language function intact, and attention span short. Mood and affect, somewhat anxious and withdrawn. LABORATORY DATA: Reviewed. IMPRESSION: Unchanged from initial note. PLAN: Start the patient on Depakote ER 500 mg at bedtime for her bipolar disorder. Check CBC, CMP, valproic acid level, and ammonia level in 3 days. Continue BuSpar and Remeron along with Zyprexa p.r.n. and scheduled an Ativan p.r.n. for now. MAN Luis QUIJANO MD DR: LOYD/eboni JOB#: [id number] / [id number]
[2019-01-17 05:58] VITALS: BP 107/74
[2019-01-17] MEDS: LEVOTHYROXINE 75 MCG TABLET PO SCH (06:00)
[2019-01-17] MEDS: OLANZapine 5 MG TABLET PO SCH ×2 (07:58→19:55)
[2019-01-17] MEDS: busPIRone 15 MG TABLET. PO SCH ×2 (07:58→17:00)
[2019-01-17] MEDS: LACOSAMIDE 50 MG TABLET PO SCH ×2 (07:58→19:55)
[2019-01-17] MEDS: CEFDINIR 300 MG CAPSULE PO SCH ×2 (07:59→19:54)
[2019-01-17] MEDS: MAGNESIUM OXIDE 400 MG TABLET PO SCH ×3 (07:59→19:54)
[2019-01-17] MEDS: PANTOPRAZOLE 40 MG TABLET. PO SCH (07:59)
[2019-01-17] MEDS: levETIRAcetam 500 MG TABLET PO SCH ×2 (07:59→19:53)
[2019-01-17] MEDS: FERROUS SULFATE 325 MG TABLET. PO SCH ×2 (07:59→17:26)
[2019-01-17] MEDS: CALCIUM CARBONATE 500 MG TABLET PO SCH ×2 (07:59→17:00)
[2019-01-17] MEDS: CHOLECALCIFEROL (VITAMIN D3) 1,000 UNIT TABLET PO SCH (07:59)
[2019-01-17] MEDS: LIDOCAINE (700MG/PATCH) PATCH. TD SCH (08:00)
[2019-01-17] MEDS: traMADol 50 MG TABLET PO SCH ×2 (08:04→19:55)
[2019-01-17] MEDS: FELBAMATE 400 MG TABLET PO SCH ×3 (08:04→19:52)
[2019-01-17] MEDS: PHENobarbital 32.4 MG TABLET. PO SCH ×2 (08:04→19:54)
[2019-01-17 10:19] LABS: BASO # 0.1 x10^3/uL (0.0-0.2); BASO % 1 % (0-3); EOS # 0.5 x10^3/uL (0.0-0.7); EOS % 10 % (0-3); HEMATOCRIT 37.6 % (36.0-47.0); HEMOGLOBIN 12.7 g/dL (12.0-15.5); LYMPH # 1.3 x10^3/uL (1.0-4.8); LYMPH % 28 % (24-48); MEAN CORPUSCULAR HEMOGLOBIN 32 pg (25-35); MEAN CORPUSCULAR HGB CONC 34 g/dL (31-37); MEAN CORPUSCULAR VOLUME 96 fL (79-100); MONO # 0.7 x10^3/uL (0.0-1.1); MONO % 14 % (0-9); NEUT # 2.2 x10^3uL (1.8-7.7); NEUT % 47 % (31-73); PLATELET COUNT 199 x10^3/uL (140-400); RED BLOOD COUNT 3.93 x10^6/uL (3.50-5.40); RED CELL DISTRIBUTION WIDTH 13.3 % (11.5-14.5); WHITE BLOOD COUNT 4.7 x10^3/uL (4.0-11.0)
[2019-01-17 10:38] LABS: ALBUMIN 3.2 g/dL (3.4-5.0); ALBUMIN/GLOBULIN RATIO 0.8 (1.0-1.7); ALK PHOS 109 U/L (46-116); ALT (SGPT) 13 U/L (14-59); ANION GAP 10 (6-14); AST (SGOT) 14 U/L (15-37); BLOOD UREA NITROGEN 20 mg/dL (7-20); BUN/CREATININE RATIO 29 (6-20); CARBON DIOXIDE 28 mmol/L (21-32); CHLORIDE 104 mmol/L (98-107); CREATININE 0.7 mg/dL (0.6-1.0); GFR 83.7; GLUCOSE 97 mg/dL (70-99); SODIUM 142 mmol/L (136-145); TOTAL BILIRUBIN 0.2 mg/dL (0.2-1.0); TOTAL PROTEIN 7.2 g/dL (6.4-8.2)
[2019-01-17 10:41] LABS: VAL ACID 44 mcg/mL (50-100)
[2019-01-17 15:51] VITALS: BP 101/70
[2019-01-17] MEDS: DIVALPROEX ER 500 MG TAB.ER.24H PO SCH (19:51)
[2019-01-17] MEDS: PATCH REMOVAL. MC SCH (19:51)
[2019-01-17] MEDS: ATORVASTATIN CALCIUM 10 MG TABLET. PO SCH (19:53)
[2019-01-17] MEDS: MIRTAZAPINE 15 MG TABLET PO SCH (19:54)
[2019-01-17] MEDS: CETIRIZINE HCL 10 MG TABLET PO SCH (19:55)
[2019-01-17] MEDS: LORazepam 0.5 MG TABLET PO PRN (19:55)
[2019-01-17] MEDS: traZODone 50 MG TABLET. PO PRN (19:55)
--- NOTE | 2019-01-17 21:57 | PDOC ---
Exam Note: David Note: Please also refer to the separate dictated note~for this date of service dictated separately.~Patient seen individually. Discussed the patient with Nursing staff reviewed the chart.~Reviewed interim history and current functioning. Reviewed vital signs,~Labs/ Radiology~and current medications noted below. Continue current treatment with the changes noted in the dictated addendum note Assessment: Vital Signs/I&O: Vital Signs Date Time Temp Pulse Resp B/P (MAP) Pulse Ox O2 Delivery O2 Flow Rate FiO2 01/17/19 21:00 98 01/17/19 19:55 18 01/17/19 15:51 97.5 73 101/70 (80) Room Air I & O 01/16/19 01/16/19 01/17/19 15:00 23:00 07:00 Intake Total 600 ml 600 ml Balance 600 ml 600 ml Labs: Laboratory Tests Test 01/17/19 10:00 White Blood Count 4.7 x10^3/uL (4.0-11.0) Red Blood Count 3.93 x10^6/uL (3.50-5.40) Hemoglobin 12.7 g/dL (12.0-15.5) Hematocrit 37.6 % (36.0-47.0) Mean Corpuscular Volume 96 fL (79-100) Mean Corpuscular Hemoglobin 32 pg (25-35) Mean Corpuscular Hemoglobin Concent 34 g/dL (31-37) Red Cell Distribution Width 13.3 % (11.5-14.5) Platelet Count 199 x10^3/uL (140-400) Neutrophils (%) (Auto) 47 % (31-73) Lymphocytes (%) (Auto) 28 % (24-48) Monocytes (%) (Auto) 14 % (0-9) H Eosinophils (%) (Auto) 10 % (0-3) H Basophils (%) (Auto) 1 % (0-3) Neutrophils # (Auto) 2.2 x10^3uL (1.8-7.7) Lymphocytes # (Auto) 1.3 x10^3/uL (1.0-4.8) Monocytes # (Auto) 0.7 x10^3/uL (0.0-1.1) Eosinophils # (Auto) 0.5 x10^3/uL (0.0-0.7) Basophils # (Auto) 0.1 x10^3/uL (0.0-0.2) Sodium Level 142 mmol/L (136-145) Potassium Level 4.0 mmol/L (3.5-5.1) Chloride Level 104 mmol/L (98-107) Carbon Dioxide Level 28 mmol/L (21-32) Anion Gap 10 (6-14) Blood Urea Nitrogen 20 mg/dL (7-20) Creatinine 0.7 mg/dL (0.6-1.0) Estimated GFR (Cockcroft-Gault) 83.7 BUN/Creatinine Ratio 29 (6-20) H Glucose Level 97 mg/dL (70-99) Calcium Level 9.0 mg/dL (8.5-10.1) Total Bilirubin 0.2 mg/dL (0.2-1.0) Aspartate Amino Transferase (AST) 14 U/L (15-37) L Alanine Aminotransferase (ALT) 13 U/L (14-59) L Alkaline Phosphatase 109 U/L (46-116) Ammonia 51 mcmol/L (11-34) H Total Protein 7.2 g/dL (6.4-8.2) Albumin 3.2 g/dL (3.4-5.0) L Albumin/Globulin Ratio 0.8 (1.0-1.7) L Valproic Acid Level 44 mcg/mL (50-100) L Valproic Acid Last Dose Date 01/16/19 Valproic Acid Last Dose Time 2100 Current Medications: I have reviewed the current psychotropics carefully including drug interactions. Risk benefit ratio favors no change other than as noted in my dictated progress note. Diagnosis: Problems: (1) Severe major depression with psychotic features (2) Adjustment disorder with depressed mood (3) Bipolar affective, mixed (4) Impulse control disorder (5) Dementia, vascular, with delusions (6) Dementia, vascular, with depression (7) Bipolar affective, mixed, sev w/ psych (8) urinary tract infection HARVEY QUIJANO MD Jan 17, 2019 21:56
[2019-01-18 06:02] VITALS: BP 90/67
[2019-01-18] MEDS: LEVOTHYROXINE 75 MCG TABLET PO SCH (06:13)
[2019-01-18] MEDS: LIDOCAINE (700MG/PATCH) PATCH. TD SCH (07:35)
[2019-01-18] MEDS: traMADol 50 MG TABLET PO SCH ×2 (07:36→19:33)
[2019-01-18] MEDS: CEFDINIR 300 MG CAPSULE PO SCH ×2 (07:36→19:33)
[2019-01-18] MEDS: PHENobarbital 32.4 MG TABLET. PO SCH ×2 (07:36→19:33)
[2019-01-18] MEDS: LACOSAMIDE 50 MG TABLET PO SCH ×2 (07:36→19:33)
[2019-01-18] MEDS: PANTOPRAZOLE 40 MG TABLET. PO SCH (07:36)
[2019-01-18] MEDS: MAGNESIUM OXIDE 400 MG TABLET PO SCH ×3 (07:36→19:33)
[2019-01-18] MEDS: FERROUS SULFATE 325 MG TABLET. PO SCH ×2 (07:37→17:18)
[2019-01-18] MEDS: levETIRAcetam 500 MG TABLET PO SCH ×2 (07:37→19:32)
[2019-01-18] MEDS: CALCIUM CARBONATE 500 MG TABLET PO SCH ×2 (07:37→17:19)
[2019-01-18] MEDS: busPIRone 15 MG TABLET. PO SCH ×2 (07:37→17:19)
[2019-01-18] MEDS: CHOLECALCIFEROL (VITAMIN D3) 1,000 UNIT TABLET PO SCH (07:37)
[2019-01-18] MEDS: OLANZapine 5 MG TABLET PO SCH ×2 (07:37→19:33)
[2019-01-18] MEDS: FELBAMATE 400 MG TABLET PO SCH ×3 (07:38→19:32)
[2019-01-18 16:27] VITALS: BP 99/79
[2019-01-18] MEDS: PATCH REMOVAL. MC SCH (19:30)
[2019-01-18] MEDS: DIVALPROEX ER 500 MG TAB.ER.24H PO SCH (19:31)
[2019-01-18] MEDS: ATORVASTATIN CALCIUM 10 MG TABLET. PO SCH (19:32)
[2019-01-18] MEDS: MIRTAZAPINE 15 MG TABLET PO SCH (19:33)
[2019-01-18] MEDS: LORazepam 0.5 MG TABLET PO PRN (19:34)
[2019-01-18] MEDS: traZODone 50 MG TABLET. PO PRN (19:34)
[2019-01-18] MEDS: CETIRIZINE HCL 10 MG TABLET PO SCH (19:34)
--- NOTE | 2019-01-19 00:39 | HP ---
ADMIT DATE: 01/13/2019 HISTORY OF PRESENT ILLNESS: A 64-year-old female, admitted to the [facility] because of being very aggressive, failing outpatient therapy, disruptive psychotic symptoms as well. The patient apparently has been reported yelling, hitting, combative, also psychotic with severe mood swings. PAST MEDICAL HISTORY: Multiple psychiatric hospitalizations for similar problems. The patient has otherwise history of dementia, seizures, hypercholesterolemia, GERD, multiple urinary tract infections with incontinence. The patient has had amputation, osteoarthritis, orthopedic surgery, bilateral total knee, left hip arthroplasty, some psychiatric problems as indicated. She has been in the unit before in 2018, severe depression, behavioral problems. FAMILY HISTORY: Unknown. ALLERGIES: Adverse effects to HYDROCODONE, VANCOMYCIN and CLOBAZAM. MEDICATIONS: Include that of Zyrtec, ferrous sulfate, Lipitor 10, ibuprofen 400 p.r.n., tramadol 50 q. 8 p.r.n., felbamate 400 mg t.i.d., Vimpat 200 mg p.o. b.i.d., Keppra 500 mg b.i.d., Remeron 15 mg at bedtime, trazodone 50 mg at bedtime p.r.n. for sleep, Zyprexa 5 mg p.o. b.i.d., phenobarbital 64.8 mg daily, variety of laxatives, levothyroxine 75 mcg daily and vitamin D. SOCIAL HISTORY: Present history of smoking, alcohol or drug use. The patient is a full code. REVIEW OF SYSTEMS: The patient is not very talkative and did not offer much in the way of complaints. Denies most medical issues that she is having there. PHYSICAL EXAMINATION: GENERAL: A pleasant white female, fairly calm at the present time. VITAL SIGNS: Blood pressure 99/80, respiratory rate 18, pulse 70, afebrile. The patient is 62 kilos. HEENT: The patient's head was atraumatic, normocephalic. Eyes: PERRLA without jaundice. Mouth and throat were normal. NECK: Supple, without JVD, carotid bruits or thyromegaly. LUNGS: Diminished throughout, but basically clear. EXTREMITIES: Without clubbing, cyanosis, nor edema. NEUROLOGIC: Stable. The patient has had previous vagal nerve stimulator placement as well. LABORATORY DATA: White count 9, hemoglobin and hematocrit 13 and 38. Sodium and potassium 142 and 4, albumin slightly low. Ammonia slightly elevated. Syphilis testing negative. IMPRESSION AND PLAN: Neurologically, the patient is alert, is very reluctant to answer questions and otherwise is basically unremarkable in that regard, but now she is baseline for her agitation and sometimes verbally aggressive. We will continue on her medications per Dr. Lopes, make further evaluation on her as indicated. Her labs were basically stable for her. Slight elevation in ammonia level, probably should be repeated, so she has bipolar disease mixed with psychotic features, major neurocognitive disorder, multifactorial, delusions, depression, behavioral disturbance, anxiety disorder, impulse control disorder, elevated ammonia level. We will continue to follow her and make further evaluation on her as indicated. Recent UA comes back showing E. coli. The patient will be adjusted on appropriate antibiotics for such. DARIAN AKINS MD DR: CATHY/eboni JOB#: [id number] / [id number]
[2019-01-19] MEDS: LEVOTHYROXINE 75 MCG TABLET PO SCH (05:28)
[2019-01-19 05:38] VITALS: BP 97/63
[2019-01-19] MEDS: LACOSAMIDE 50 MG TABLET PO SCH ×2 (07:23→19:26)
[2019-01-19] MEDS: MAGNESIUM OXIDE 400 MG TABLET PO SCH ×3 (07:24→19:25)
[2019-01-19] MEDS: traMADol 50 MG TABLET PO SCH ×2 (07:24→19:29)
[2019-01-19] MEDS: levETIRAcetam 500 MG TABLET PO SCH ×2 (07:24→19:25)
[2019-01-19] MEDS: OLANZapine 5 MG TABLET PO SCH ×2 (07:25→19:26)
[2019-01-19] MEDS: busPIRone 15 MG TABLET. PO SCH ×2 (07:25→17:41)
[2019-01-19] MEDS: FERROUS SULFATE 325 MG TABLET. PO SCH ×2 (07:25→17:41)
[2019-01-19] MEDS: CEFDINIR 300 MG CAPSULE PO SCH ×2 (07:25→19:25)
[2019-01-19] MEDS: CALCIUM CARBONATE 500 MG TABLET PO SCH ×2 (07:25→17:41)
[2019-01-19] MEDS: CHOLECALCIFEROL (VITAMIN D3) 1,000 UNIT TABLET PO SCH (07:25)
[2019-01-19] MEDS: PHENobarbital 32.4 MG TABLET. PO SCH ×2 (07:25→19:25)
[2019-01-19] MEDS: PANTOPRAZOLE 40 MG TABLET. PO SCH (07:25)
[2019-01-19] MEDS: FELBAMATE 400 MG TABLET PO SCH ×3 (07:27→19:24)
[2019-01-19] MEDS: LIDOCAINE (700MG/PATCH) PATCH. TD SCH (07:28)
[2019-01-19 16:11] VITALS: BP 90/55
[2019-01-19] MEDS: DIVALPROEX ER 500 MG TAB.ER.24H PO SCH (19:24)
[2019-01-19] MEDS: MIRTAZAPINE 15 MG TABLET PO SCH (19:25)
[2019-01-19] MEDS: ATORVASTATIN CALCIUM 10 MG TABLET. PO SCH (19:25)
[2019-01-19] MEDS: CETIRIZINE HCL 10 MG TABLET PO SCH (19:26)
[2019-01-19] MEDS: traZODone 50 MG TABLET. PO PRN (19:30)
[2019-01-19] MEDS: PATCH REMOVAL. MC SCH (19:32)
[2019-01-19] MEDS: LACTOBACILLUS RHAMNOSUS GG 1 CAPSULE. PO SCH (19:33)
[2019-01-20] MEDS: LEVOTHYROXINE 75 MCG TABLET PO SCH (05:26)
[2019-01-20 05:58] VITALS: BP 92/60
[2019-01-20] MEDS: CEFDINIR 300 MG CAPSULE PO SCH ×2 (08:28→20:33)
[2019-01-20] MEDS: FERROUS SULFATE 325 MG TABLET. PO SCH ×2 (08:29→17:50)
[2019-01-20] MEDS: FELBAMATE 400 MG TABLET PO SCH ×3 (08:29→20:34)
[2019-01-20] MEDS: OLANZapine 5 MG TABLET PO SCH ×2 (08:29→20:37)
[2019-01-20] MEDS: levETIRAcetam 500 MG TABLET PO SCH ×2 (08:29→20:37)
[2019-01-20] MEDS: CALCIUM CARBONATE 500 MG TABLET PO SCH ×2 (08:29→17:50)
[2019-01-20] MEDS: MAGNESIUM OXIDE 400 MG TABLET PO SCH ×3 (08:29→20:33)
[2019-01-20] MEDS: busPIRone 15 MG TABLET. PO SCH ×2 (08:29→17:50)
[2019-01-20] MEDS: PANTOPRAZOLE 40 MG TABLET. PO SCH (08:30)
[2019-01-20] MEDS: CHOLECALCIFEROL (VITAMIN D3) 1,000 UNIT TABLET PO SCH (08:30)
[2019-01-20] MEDS: LACTOBACILLUS RHAMNOSUS GG 1 CAPSULE. PO SCH ×2 (08:30→20:33)
[2019-01-20] MEDS: LIDOCAINE (700MG/PATCH) PATCH. TD SCH (08:30)
[2019-01-20] MEDS: traMADol 50 MG TABLET PO SCH ×2 (08:37→20:42)
[2019-01-20] MEDS: PHENobarbital 32.4 MG TABLET. PO SCH ×2 (08:38→20:33)
[2019-01-20] MEDS: LACOSAMIDE 50 MG TABLET PO SCH ×2 (08:38→20:37)
--- NOTE | 2019-01-20 12:06 | PN ---
DATE: 01/19/2019 SUBJECTIVE: The patient was seen today, met with the staff, chart reviewed and also covering for Dr. Lopes. The patient's behavior fluctuates, increased agitation, restlessness, confusion, avoidance behavior and recent UTI. The patient also received Zyprexa p.r.n. OBJECTIVE: VITAL SIGNS: Temperature 97.4, blood pressure 97/63, pulse 65, respirations 20, O2 sat 95%. GENERAL: Slept about 7 hours last night. CURRENT MEDICATIONS: Include Depakote 500 mg at night, phenobarbital 64.8 mg b.i.d., olanzapine 5 mg b.i.d., mirtazapine 15 mg at night, Keppra 500 mg b.i.d., BuSpar 15 mg b.i.d., lorazepam 0.5 mg q. 2 hours p.r.n., olanzapine 2.5 mg q. 2 hours p.r.n., and trazodone 50 mg at night p.r.n. The patient is not having any side effects. LABORATORY DATA: The patient's lab reviewed. ASSESSMENT: 1. Bipolar disorder type 1, mixed, with psychotic features. 2. Major neurocognitive disorder, multifactorial with delusions, depression, and behavioral disturbances. 3. Anxiety disorder, unspecified. 4. Impulse control disorder, unspecified. PLAN: To continue with the treatment. YA MARX MD DR: LOVE/eboni JOB#: [id number] / [id number]
[2019-01-20] MEDS: LORazepam 0.5 MG TABLET PO PRN (13:35)
[2019-01-20] MEDS: traMADol 50 MG TABLET PO PRN (13:35)
[2019-01-20 16:25] VITALS: BP 11/77
[2019-01-20] MEDS: MIRTAZAPINE 15 MG TABLET PO SCH (20:33)
[2019-01-20] MEDS: CETIRIZINE HCL 10 MG TABLET PO SCH (20:36)
[2019-01-20] MEDS: ATORVASTATIN CALCIUM 10 MG TABLET. PO SCH (20:37)
[2019-01-20] MEDS: PATCH REMOVAL. MC SCH (20:38)
[2019-01-20] MEDS: DIVALPROEX ER 250 MG TAB.ER.24H. PO SCH (20:42)
--- NOTE | 2019-01-20 21:52 | PDOC ---
Exam Note: David Note: Please also refer to the separate dictated note~for this date of service dictated separately.~Patient seen individually. Discussed the patient with Nursing staff reviewed the chart.~Reviewed interim history and current functioning. Reviewed vital signs,~Labs/ Radiology~and current medications noted below. Continue current treatment with the changes noted in the dictated addendum note Assessment: Vital Signs/I&O: Vital Signs Date Time Temp Pulse Resp B/P (MAP) Pulse Ox O2 Delivery O2 Flow Rate FiO2 01/20/19 20:42 18 Room Air 01/20/19 16:25 97.1 69 1177 (55) 97 I & O 01/19/19 01/19/19 01/20/19 15:00 23:00 07:00 Intake Total 240 ml 600 ml Balance 240 ml 600 ml Current Medications: Meds: Current Medications Medications (Trade) Dose Ordered Sig/Antoni Route PRN Reason Start Time Stop Time Status Last Admin Dose Admin Divalproex Sodium (Depakote Er) 750 mg QHS PO 01/20/19 21:00 01/20/19 20:42 I have reviewed the current psychotropics carefully including drug interactions. Risk benefit ratio favors no change other than as noted in my dictated progress note. Diagnosis: Problems: (1) Severe major depression with psychotic features (2) Adjustment disorder with depressed mood (3) Bipolar affective, mixed (4) Impulse control disorder (5) Dementia, vascular, with delusions (6) Dementia, vascular, with depression (7) Bipolar affective, mixed, sev w/ psych HARVEY QUIJANO MD Jan 20, 2019 21:52
--- NOTE | 2019-01-21 00:58 | PN ---
DATE: 01/16/2019 PSYCHIATRIC PROGRESS NOTE This late entry 01/16/2019 covers the elements not covered in my initial note. SUBJECTIVE: I met with the patient in the evening. Per LION Keller, patient slept 6-3/4 hours previous night. Yelling has been much better. She is doing better, still gets impulsive and not hitting out, however. REVIEW OF SYSTEMS: Ambulation impaired, in wheelchair. No CV, , pulmonary, eye, ENT system symptoms on review. Reliability varies. MENTAL STATUS EXAM: Oriented to herself and situation. Speech moderate latency, often responses monosyllabic. Abstraction fair, computation impaired, language function intact, attention span short. Mood and affect somewhat anxious, labile. LABORATORY DATA: Reviewed. IMPRESSION: Unchanged from initial note. Bipolar disorder, mixed with psychotic features, mild cognitive impairment, psychotic disorder, unspecified; impulse control disorder, unspecified. PLAN: Continue psychotropics from initial note including phenytoin and phenobarbital for her seizures. We will defer to Dr. York, Neurology. Depakote has been initiated as a mood stabilizer. Follow labs level, adjust as indicated clinically. MAN Luis QUIJANO MD DR: LOYD/eboni JOB#: [id number] / [id number]
--- NOTE | 2019-01-21 05:06 | PN ---
DATE: 01/17/2019 PSYCHIATRIC PROGRESS NOTE This late entry, 01/17/2019, covers elements not covered in my initial note. SUBJECTIVE: I met with the patient in the morning. Per report from LION Odom, the patient remains somewhat withdrawn, slept 7-1/4 hours. Speech is monotone, flat. She is on Ceftin for UTI. REVIEW OF SYSTEMS: Ambulation impaired, in wheelchair. No CV, , pulmonary, eye system symptoms on review. MENTAL STATUS EXAM: Oriented to herself and situation. Speech as noted. Abstraction fair, computation impaired, language function intact, attention span short. Mood and affect withdrawn. LABORATORY DATA: Reviewed. IMPRESSION: Unchanged from initial note. PLAN: No change from initial note and treat the UTI. Dr. Troncoso will cover for me on 01/18/2019 and 01/19/2019. MAN Luis QUIJANO MD DR: LOYD/eboni JOB#: [id number] / [id number]
[2019-01-21] MEDS: LEVOTHYROXINE 75 MCG TABLET PO SCH (05:35)
[2019-01-21 05:52] VITALS: BP 100/62
[2019-01-21] MEDS: LIDOCAINE (700MG/PATCH) PATCH. TD SCH (09:23)
[2019-01-21] MEDS: CEFDINIR 300 MG CAPSULE PO SCH ×2 (09:25→20:04)
[2019-01-21] MEDS: LACTOBACILLUS RHAMNOSUS GG 1 CAPSULE. PO SCH ×2 (09:25→20:02)
[2019-01-21] MEDS: CALCIUM CARBONATE 500 MG TABLET PO SCH ×2 (09:25→18:17)
[2019-01-21] MEDS: FERROUS SULFATE 325 MG TABLET. PO SCH ×2 (09:25→18:17)
[2019-01-21] MEDS: busPIRone 15 MG TABLET. PO SCH ×2 (09:25→18:17)
[2019-01-21] MEDS: levETIRAcetam 500 MG TABLET PO SCH ×2 (09:25→20:03)
[2019-01-21] MEDS: PANTOPRAZOLE 40 MG TABLET. PO SCH (09:25)
[2019-01-21] MEDS: OLANZapine 5 MG TABLET PO SCH ×2 (09:25→20:05)
[2019-01-21] MEDS: MAGNESIUM OXIDE 400 MG TABLET PO SCH ×3 (09:25→20:04)
[2019-01-21] MEDS: FELBAMATE 400 MG TABLET PO SCH ×3 (09:26→20:03)
[2019-01-21] MEDS: traMADol 50 MG TABLET PO SCH ×2 (09:46→20:09)
[2019-01-21] MEDS: PHENobarbital 32.4 MG TABLET. PO SCH ×2 (09:46→20:09)
[2019-01-21] MEDS: LACOSAMIDE 50 MG TABLET PO SCH ×2 (09:46→20:09)
[2019-01-21] MEDS: CHOLECALCIFEROL (VITAMIN D3) 1,000 UNIT TABLET PO SCH (09:46)
[2019-01-21] MEDS: LORazepam 0.5 MG TABLET PO PRN ×2 (12:57→20:05)
[2019-01-21 16:26] VITALS: BP 100/71
[2019-01-21] MEDS: DIVALPROEX ER 250 MG TAB.ER.24H. PO SCH (20:03)
[2019-01-21] MEDS: ATORVASTATIN CALCIUM 10 MG TABLET. PO SCH (20:03)
[2019-01-21] MEDS: MIRTAZAPINE 15 MG TABLET PO SCH (20:04)
[2019-01-21] MEDS: CETIRIZINE HCL 10 MG TABLET PO SCH (20:05)
[2019-01-21] MEDS: PATCH REMOVAL. MC SCH (20:21)
--- NOTE | 2019-01-21 21:59 | PDOC ---
Exam Note: David Note: Please also refer to the separate dictated note~for this date of service dictated separately.~Patient seen individually. Discussed the patient with Nursing staff reviewed the chart.~Reviewed interim history and current functioning. Reviewed vital signs,~Labs/ Radiology~and current medications noted below. Continue current treatment with the changes noted in the dictated addendum note Assessment: Vital Signs/I&O: Vital Signs Date Time Temp Pulse Resp B/P (MAP) Pulse Ox O2 Delivery O2 Flow Rate FiO2 01/21/19 20:09 97 01/21/19 16:26 97.0 74 16 100/71 (81) 01/20/19 21:42 Room Air I & O 01/20/19 01/20/19 01/21/19 15:00 23:00 07:00 Intake Total 240 ml 360 ml Balance 240 ml 360 ml Current Medications: I have reviewed the current psychotropics carefully including drug interactions. Risk benefit ratio favors no change other than as noted in my dictated progress note. Diagnosis: Problems: (1) Severe major depression with psychotic features (2) Adjustment disorder with depressed mood (3) Bipolar affective, mixed (4) Impulse control disorder (5) Dementia, vascular, with delusions (6) Dementia, vascular, with depression (7) Bipolar affective, mixed, sev w/ psych HARVEY QUIJANO MD Jan 21, 2019 21:59
[2019-01-22] MEDS: LEVOTHYROXINE 75 MCG TABLET PO SCH (05:29)
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
[2019-01-22 06:31] VITALS: BP 90/60
[2019-01-22] MEDS: CHOLECALCIFEROL (VITAMIN D3) 1,000 UNIT TABLET PO SCH (09:10)
[2019-01-22] MEDS: PANTOPRAZOLE 40 MG TABLET. PO SCH (09:10)
[2019-01-22] MEDS: FERROUS SULFATE 325 MG TABLET. PO SCH ×2 (09:10→18:39)
[2019-01-22] MEDS: FELBAMATE 400 MG TABLET PO SCH ×3 (09:10→20:05)
[2019-01-22] MEDS: PHENobarbital 32.4 MG TABLET. PO SCH ×2 (09:11→20:05)
[2019-01-22] MEDS: LACTOBACILLUS RHAMNOSUS GG 1 CAPSULE. PO SCH ×2 (09:11→20:00)
[2019-01-22] MEDS: traMADol 50 MG TABLET PO SCH ×2 (09:11→20:06)
[2019-01-22] MEDS: OLANZapine 5 MG TABLET PO SCH ×2 (09:11→20:00)
[2019-01-22] MEDS: CEFDINIR 300 MG CAPSULE PO SCH ×2 (09:11→20:00)
[2019-01-22] MEDS: levETIRAcetam 500 MG TABLET PO SCH ×2 (09:11→19:59)
[2019-01-22] MEDS: LACOSAMIDE 50 MG TABLET PO SCH ×2 (09:11→20:05)
[2019-01-22] MEDS: busPIRone 15 MG TABLET. PO SCH ×2 (09:11→17:00)
[2019-01-22] MEDS: CALCIUM CARBONATE 500 MG TABLET PO SCH ×2 (09:11→18:39)
[2019-01-22] MEDS: MAGNESIUM OXIDE 400 MG TABLET PO SCH ×3 (09:11→20:00)
[2019-01-22] MEDS: LIDOCAINE (700MG/PATCH) PATCH. TD SCH ×2 (09:12→11:00)
[2019-01-22] MEDS: SERTRALINE 50 MG TABLET. PO SCH (09:14)
[2019-01-22] MEDS: traZODone 50 MG TABLET. PO SCH (13:24)
[2019-01-22 17:36] VITALS: BP 102/73
[2019-01-22] MEDS: DIVALPROEX ER 250 MG TAB.ER.24H. PO SCH (19:59)
[2019-01-22] MEDS: CETIRIZINE HCL 10 MG TABLET PO SCH (20:00)
[2019-01-22] MEDS: ATORVASTATIN CALCIUM 10 MG TABLET. PO SCH (20:00)
[2019-01-22] MEDS: MIRTAZAPINE 15 MG TABLET PO SCH (20:00)
[2019-01-22] MEDS: PATCH REMOVAL. MC SCH (20:01)
--- NOTE | 2019-01-22 21:59 | PDOC ---
Exam Note: David Note: Please also refer to the separate dictated note~for this date of service dictated separately.~Patient seen individually. Discussed the patient with Nursing staff reviewed the chart.~Reviewed interim history and current functioning. Reviewed vital signs,~Labs/ Radiology~and current medications noted below. Continue current treatment with the changes noted in the dictated addendum note Assessment: Vital Signs/I&O: Vital Signs Date Time Temp Pulse Resp B/P (MAP) Pulse Ox O2 Delivery O2 Flow Rate FiO2 01/22/19 20:06 18 Room Air 01/22/19 17:36 98.5 72 102/73 (83) 98 I & O 01/21/19 01/21/19 01/22/19 15:00 23:00 07:00 Intake Total 720 ml 360 ml Balance 720 ml 360 ml Current Medications: Meds: Current Medications Medications (Trade) Dose Ordered Sig/Antoni Route PRN Reason Start Time Stop Time Status Last Admin Dose Admin Sertraline HCl (Zoloft) 50 mg DAILY PO 01/22/19 09:00 01/22/19 09:14 Trazodone HCl (Desyrel) 12.5 mg 0900,1300 PO 01/22/19 13:00 01/22/19 13:24 I have reviewed the current psychotropics carefully including drug interactions. Risk benefit ratio favors no change other than as noted in my dictated progress note. Diagnosis: Problems: (1) Severe major depression with psychotic features (2) Adjustment disorder with depressed mood (3) Bipolar affective, mixed (4) Impulse control disorder (5) Dementia, vascular, with delusions (6) Dementia, vascular, with depression (7) Bipolar affective, mixed, sev w/ psych HARVEY QUIJANO MD Jan 22, 2019 21:59
[2019-01-23] MEDS: LEVOTHYROXINE 75 MCG TABLET PO SCH (05:55)
[2019-01-23 06:26] VITALS: BP 103/69
[2019-01-23 07:42] LABS: BASO % 1 % (0-3); EOS # 0.5 x10^3/uL (0.0-0.7); EOS % 14 % (0-3); HEMATOCRIT 33.8 % (36.0-47.0); HEMOGLOBIN 11.4 g/dL (12.0-15.5); LYMPH # 1.5 x10^3/uL (1.0-4.8); LYMPH % 38 % (24-48); MEAN CORPUSCULAR HEMOGLOBIN 32 pg (25-35); MEAN CORPUSCULAR HGB CONC 34 g/dL (31-37); MEAN CORPUSCULAR VOLUME 96 fL (79-100); MONO # 0.6 x10^3/uL (0.0-1.1); MONO % 15 % (0-9); NEUT # 1.3 x10^3uL (1.8-7.7); NEUT % 32 % (31-73); PLATELET COUNT 178 x10^3/uL (140-400); RED BLOOD COUNT 3.53 x10^6/uL (3.50-5.40); RED CELL DISTRIBUTION WIDTH 13.1 % (11.5-14.5); WHITE BLOOD COUNT 3.9 x10^3/uL (4.0-11.0)
[2019-01-23 07:47] LABS: ALBUMIN 2.7 g/dL (3.4-5.0); ALBUMIN/GLOBULIN RATIO 0.8 (1.0-1.7); ALK PHOS 97 U/L (46-116); ALT (SGPT) 10 U/L (14-59); ANION GAP 9 (6-14); AST (SGOT) 12 U/L (15-37); BLOOD UREA NITROGEN 23 mg/dL (7-20); BUN/CREATININE RATIO 33 (6-20); CALCIUM 8.7 mg/dL (8.5-10.1); CARBON DIOXIDE 29 mmol/L (21-32); CHLORIDE 108 mmol/L (98-107); CREATININE 0.7 mg/dL (0.6-1.0); GFR 83.7; GLUCOSE 92 mg/dL (70-99); POTASSIUM 3.7 mmol/L (3.5-5.1); SODIUM 146 mmol/L (136-145); TOTAL BILIRUBIN 0.2 mg/dL (0.2-1.0); TOTAL PROTEIN 6.1 g/dL (6.4-8.2)
[2019-01-23 07:48] LABS: VAL ACID 58 mcg/mL (50-100)
[2019-01-23] MEDS: LACTOBACILLUS RHAMNOSUS GG 1 CAPSULE. PO SCH ×2 (07:56→19:23)
[2019-01-23] MEDS: PANTOPRAZOLE 40 MG TABLET. PO SCH (07:56)
[2019-01-23] MEDS: busPIRone 15 MG TABLET. PO SCH ×2 (07:56→14:12)
[2019-01-23] MEDS: CEFDINIR 300 MG CAPSULE PO SCH ×2 (07:57→19:26)
[2019-01-23] MEDS: CHOLECALCIFEROL (VITAMIN D3) 1,000 UNIT TABLET PO SCH (07:57)
[2019-01-23] MEDS: traZODone 50 MG TABLET. PO SCH ×2 (07:57→14:12)
[2019-01-23] MEDS: FERROUS SULFATE 325 MG TABLET. PO SCH ×2 (07:57→14:12)
[2019-01-23] MEDS: levETIRAcetam 500 MG TABLET PO SCH ×2 (07:58→19:25)
[2019-01-23] MEDS: CALCIUM CARBONATE 500 MG TABLET PO SCH ×2 (07:58→14:13)
[2019-01-23] MEDS: OLANZapine 5 MG TABLET PO SCH ×2 (07:58→19:27)
[2019-01-23] MEDS: SERTRALINE 50 MG TABLET. PO SCH (07:58)
[2019-01-23] MEDS: MAGNESIUM OXIDE 400 MG TABLET PO SCH ×3 (07:58→19:25)
[2019-01-23] MEDS: LIDOCAINE (700MG/PATCH) PATCH. TD SCH (07:59)
[2019-01-23] MEDS: traMADol 50 MG TABLET PO SCH ×2 (08:05→19:26)
[2019-01-23] MEDS: PHENobarbital 32.4 MG TABLET. PO SCH ×2 (08:06→19:25)
[2019-01-23] MEDS: LACOSAMIDE 50 MG TABLET PO SCH ×2 (08:06→19:27)
[2019-01-23] MEDS: FELBAMATE 400 MG TABLET PO SCH ×3 (08:07→19:25)
[2019-01-23 15:56] VITALS: BP 102/64
[2019-01-23] MEDS: PATCH REMOVAL. MC SCH (19:23)
[2019-01-23] MEDS: DIVALPROEX ER 250 MG TAB.ER.24H. PO SCH (19:24)
[2019-01-23] MEDS: ATORVASTATIN CALCIUM 10 MG TABLET. PO SCH (19:25)
[2019-01-23] MEDS: MIRTAZAPINE 15 MG TABLET PO SCH (19:26)
[2019-01-23] MEDS: traZODone 50 MG TABLET. PO PRN (19:27)
[2019-01-23] MEDS: CETIRIZINE HCL 10 MG TABLET PO SCH (19:27)
--- NOTE | 2019-01-23 21:53 | PDOC ---
Exam Note: David Note: Please also refer to the separate dictated note~for this date of service dictated separately.~Patient seen individually. Discussed the patient with Nursing staff reviewed the chart.~Reviewed interim history and current functioning. Reviewed vital signs,~Labs/ Radiology~and current medications noted below. Continue current treatment with the changes noted in the dictated addendum note Assessment: Vital Signs/I&O: Vital Signs Date Time Temp Pulse Resp B/P (MAP) Pulse Ox O2 Delivery O2 Flow Rate FiO2 01/23/19 20:26 92 Room Air 01/23/19 15:56 97.6 74 16 102/64 (77) I & O 01/22/19 01/22/19 01/23/19 15:00 23:00 07:00 Intake Total 720 ml 240 ml 240 ml Balance 720 ml 240 ml 240 ml Labs: Laboratory Tests Test 01/23/19 07:03 White Blood Count 3.9 x10^3/uL (4.0-11.0) L Red Blood Count 3.53 x10^6/uL (3.50-5.40) Hemoglobin 11.4 g/dL (12.0-15.5) L Hematocrit 33.8 % (36.0-47.0) L Mean Corpuscular Volume 96 fL (79-100) Mean Corpuscular Hemoglobin 32 pg (25-35) Mean Corpuscular Hemoglobin Concent 34 g/dL (31-37) Red Cell Distribution Width 13.1 % (11.5-14.5) Platelet Count 178 x10^3/uL (140-400) Neutrophils (%) (Auto) 32 % (31-73) Lymphocytes (%) (Auto) 38 % (24-48) Monocytes (%) (Auto) 15 % (0-9) H Eosinophils (%) (Auto) 14 % (0-3) H Basophils (%) (Auto) 1 % (0-3) Neutrophils # (Auto) 1.3 x10^3uL (1.8-7.7) L Lymphocytes # (Auto) 1.5 x10^3/uL (1.0-4.8) Monocytes # (Auto) 0.6 x10^3/uL (0.0-1.1) Eosinophils # (Auto) 0.5 x10^3/uL (0.0-0.7) Basophils # (Auto) 0.0 x10^3/uL (0.0-0.2) Sodium Level 146 mmol/L (136-145) H Potassium Level 3.7 mmol/L (3.5-5.1) Chloride Level 108 mmol/L (98-107) H Carbon Dioxide Level 29 mmol/L (21-32) Anion Gap 9 (6-14) Blood Urea Nitrogen 23 mg/dL (7-20) H Creatinine 0.7 mg/dL (0.6-1.0) Estimated GFR (Cockcroft-Gault) 83.7 BUN/Creatinine Ratio 33 (6-20) H Glucose Level 92 mg/dL (70-99) Calcium Level 8.7 mg/dL (8.5-10.1) Total Bilirubin 0.2 mg/dL (0.2-1.0) Aspartate Amino Transferase (AST) 12 U/L (15-37) L Alanine Aminotransferase (ALT) 10 U/L (14-59) L Alkaline Phosphatase 97 U/L (46-116) Ammonia 35 mcmol/L (11-34) H Total Protein 6.1 g/dL (6.4-8.2) L Albumin 2.7 g/dL (3.4-5.0) L Albumin/Globulin Ratio 0.8 (1.0-1.7) L Valproic Acid Level 58 mcg/mL (50-100) Valproic Acid Last Dose Date 01/22/2019 Valproic Acid Last Dose Time 2100 Current Medications: I have reviewed the current psychotropics carefully including drug interactions. Risk benefit ratio favors no change other than as noted in my dictated progress note. Diagnosis: Problems: (1) Severe major depression with psychotic features (2) Adjustment disorder with depressed mood (3) Bipolar affective, mixed (4) Impulse control disorder (5) Dementia, vascular, with delusions (6) Dementia, vascular, with depression (7) Bipolar affective, mixed, sev w/ psych HARVEY QUIJANO MD Jan 23, 2019 21:53
--- NOTE | 2019-01-24 05:08 | PN ---
DATE: 01/21/2019 PSYCHIATRIC PROGRESS NOTE This late entry, 01/21, covers elements not covered in my initial note. SUBJECTIVE: I met with the patient in the evening. According to LION Turner, patient slept 9-1/4 hours previous night. She has been anxious, restless, agitated with marked mood lability, in and out of the [place] to reduce stimuli. She threw a glucometer off the table, broke the glucometer, kicking the doors, ramming a wheelchair into others and had to be removed from the dining room in the evening and was one-on-one with a staff member where I met with her in the evening in the family conference room. REVIEW OF SYSTEMS: Ambulation impaired, in wheelchair. No CV, , pulmonary, eye, ENT system symptoms on review. Reliability poor. MENTAL STATUS EXAM: Oriented to herself and situation. Speech coherent, rapid, loud at times. Abstraction fair, computation impaired, language function intact. Mood and affect remains labile. LABORATORY DATA: Reviewed. IMPRESSION: Unchanged from initial note. PLAN: No change from initial note. Start Zoloft 50 mg a day. May consider changing the BuSpar to scheduled trazodone. We will see another day and then decide. HARVEY QUIJANO MD DR: LOYD/eboni JOB#: [id number] / [id number]
--- NOTE | 2019-01-24 06:02 | PN ---
DATE: 01/22/2019 PSYCHIATRIC PROGRESS NOTE This late entry, 01/22/2019, covers elements not covered in my initial note. SUBJECTIVE: I met with the patient in the evening of 01/22/2019 and staffed at a treatment team meeting with the entire team in the morning. The patient slept 7-1/4 hours previous night. Appetite 75-100%. Last evening, she was yelling, kicking, screaming. She does have a UTI and is on antibiotics for this. REVIEW OF SYSTEMS: Ambulation impaired, in wheelchair. No CV, , pulmonary, eye, ENT system symptoms on review. MENTAL STATUS EXAM: Oriented to herself and situation. Speech coherent, can be rapid at times. Abstraction fair, computation impaired, language function intact, attention span short. Mood and affect somewhat anxious, labile. LABORATORY DATA: Reviewed. IMPRESSION: Bipolar disorder, mixed with psychotic features, mild cognitive impairment; anxiety disorder, unspecified; urinary tract infection. Rest unchanged for now. PLAN: Treat the UTI. Change the BuSpar to trazodone 12.5 mg, 9 a.m. and 1:00 p.m. Continue rest of the psychotropics unchanged. Check a valproic acid level on 01/23/2019, CBC, CMP, ammonia level to reach therapeutic level. Rest unchanged. MAN Luis QUIJANO MD DR: LOYD/ebnoi JOB#: [id number] / [id number]
[2019-01-24] MEDS: LEVOTHYROXINE 75 MCG TABLET PO SCH (06:16)
[2019-01-24 06:37] VITALS: BP 99/63
[2019-01-24] MEDS: busPIRone 15 MG TABLET. PO SCH ×2 (08:36→17:13)
[2019-01-24] MEDS: PANTOPRAZOLE 40 MG TABLET. PO SCH (08:36)
[2019-01-24] MEDS: CALCIUM CARBONATE 500 MG TABLET PO SCH ×2 (08:36→17:00)
[2019-01-24] MEDS: LACTOBACILLUS RHAMNOSUS GG 1 CAPSULE. PO SCH ×2 (08:36→19:17)
[2019-01-24] MEDS: traZODone 50 MG TABLET. PO SCH ×2 (08:37→13:00)
[2019-01-24] MEDS: PHENobarbital 32.4 MG TABLET. PO SCH ×2 (08:38→19:19)
[2019-01-24] MEDS: FERROUS SULFATE 325 MG TABLET. PO SCH ×2 (08:38→17:19)
[2019-01-24] MEDS: MAGNESIUM OXIDE 400 MG TABLET PO SCH ×3 (08:38→19:19)
[2019-01-24] MEDS: levETIRAcetam 500 MG TABLET PO SCH ×2 (08:38→19:18)
[2019-01-24] MEDS: FELBAMATE 400 MG TABLET PO SCH ×3 (08:38→19:18)
[2019-01-24] MEDS: traMADol 50 MG TABLET PO SCH ×2 (08:39→19:21)
[2019-01-24] MEDS: LIDOCAINE (700MG/PATCH) PATCH. TD SCH (08:39)
[2019-01-24] MEDS: SERTRALINE 50 MG TABLET. PO SCH (08:39)
[2019-01-24] MEDS: LACOSAMIDE 50 MG TABLET PO SCH ×2 (08:39→19:21)
[2019-01-24] MEDS: CHOLECALCIFEROL (VITAMIN D3) 1,000 UNIT TABLET PO SCH (08:39)
[2019-01-24] MEDS: OLANZapine 5 MG TABLET PO SCH ×2 (08:39→19:21)
[2019-01-24] MEDS: LORazepam 0.5 MG TABLET PO PRN ×2 (13:08→18:00)
[2019-01-24 16:17] VITALS: BP 111/81
[2019-01-24] MEDS: PATCH REMOVAL. MC SCH (19:16)
[2019-01-24] MEDS: DIVALPROEX ER 250 MG TAB.ER.24H. PO SCH (19:17)
[2019-01-24] MEDS: MIRTAZAPINE 15 MG TABLET PO SCH (19:19)
[2019-01-24] MEDS: ATORVASTATIN CALCIUM 10 MG TABLET. PO SCH (19:19)
[2019-01-24] MEDS: CETIRIZINE HCL 10 MG TABLET PO SCH (19:21)
--- NOTE | 2019-01-24 23:03 | PDOC ---
Exam Note: David Note: Please also refer to the separate dictated note~for this date of service dictated separately.~Patient seen individually. Discussed the patient with Nursing staff reviewed the chart.~Reviewed interim history and current functioning. Reviewed vital signs,~Labs/ Radiology~and current medications noted below. Continue current treatment with the changes noted in the dictated addendum note Assessment: Vital Signs/I&O: Vital Signs Date Time Temp Pulse Resp B/P (MAP) Pulse Ox O2 Delivery O2 Flow Rate FiO2 01/24/19 20:30 18 96 Room Air 01/24/19 16:17 97.1 69 111/81 (91) I & O 01/23/19 01/23/19 01/24/19 14:59 22:59 06:59 Intake Total 240 ml 240 ml Balance 240 ml 240 ml Current Medications: I have reviewed the current psychotropics carefully including drug interactions. Risk benefit ratio favors no change other than as noted in my dictated progress note. Diagnosis: Problems: (1) Severe major depression with psychotic features (2) Adjustment disorder with depressed mood (3) Bipolar affective, mixed (4) Impulse control disorder (5) Dementia, vascular, with delusions (6) Dementia, vascular, with depression (7) Bipolar affective, mixed, sev w/ psych HARVEY QUIJANO MD Jan 24, 2019 23:02
--- NOTE | 2019-01-24 23:57 | PN ---
DATE: 01/23/2019 PSYCHIATRIC PROGRESS NOTE This note covers elements not covered in my initial note of 01/23/2019. SUBJECTIVE: I met with the patient individually in the evening. Per LION Batista, the patient slept 6-1/2 hours previous night. She has been grumpy, did not want to get out of bed, did not wake up till about 11:00 a.m., but not violent. Valproic acid level today is 58. AST, ALT unremarkable. REVIEW OF SYSTEMS: Ambulation impaired, in wheelchair. No CV, , pulmonary, eye system symptoms on review. MENTAL STATUS EXAM: Oriented to herself and situation. Speech has some latency, low in rate and rhythm, low in volume, often responses monosyllabic. Abstraction fair, computation impaired, language function intact. Mood and affect withdrawn at times, labile. LABORATORY DATA: Reviewed. IMPRESSION: Unchanged from initial note. PLAN: No change from initial note. HARVEY QUIJANO MD DR: LOYD/eboni JOB#: [id number] / [id number]
[2019-01-25] MEDS: traZODone 50 MG TABLET. PO PRN (01:15)
[2019-01-25 04:49] VITALS: BP 95/63
[2019-01-25] MEDS: LEVOTHYROXINE 75 MCG TABLET PO SCH (06:02)
[2019-01-25] MEDS: PANTOPRAZOLE 40 MG TABLET. PO SCH (08:09)
[2019-01-25] MEDS: busPIRone 15 MG TABLET. PO SCH ×2 (08:09→17:26)
[2019-01-25] MEDS: LACTOBACILLUS RHAMNOSUS GG 1 CAPSULE. PO SCH ×2 (08:10→20:26)
[2019-01-25] MEDS: traZODone 50 MG TABLET. PO SCH (08:10)
[2019-01-25] MEDS: CALCIUM CARBONATE 500 MG TABLET PO SCH ×2 (08:10→17:27)
[2019-01-25] MEDS: PHENobarbital 32.4 MG TABLET. PO SCH ×2 (08:11→20:29)
[2019-01-25] MEDS: levETIRAcetam 500 MG TABLET PO SCH ×2 (08:11→20:28)
[2019-01-25] MEDS: MAGNESIUM OXIDE 400 MG TABLET PO SCH ×3 (08:11→20:28)
[2019-01-25] MEDS: traMADol 50 MG TABLET PO SCH ×2 (08:11→20:28)
[2019-01-25] MEDS: FERROUS SULFATE 325 MG TABLET. PO SCH ×2 (08:11→17:26)
[2019-01-25] MEDS: FELBAMATE 400 MG TABLET PO SCH ×3 (08:11→20:42)
[2019-01-25] MEDS: LACOSAMIDE 50 MG TABLET PO SCH ×2 (08:12→20:27)
[2019-01-25] MEDS: SERTRALINE 50 MG TABLET. PO SCH (08:12)
[2019-01-25] MEDS: OLANZapine 5 MG TABLET PO SCH ×2 (08:12→20:28)
[2019-01-25] MEDS: CHOLECALCIFEROL (VITAMIN D3) 1,000 UNIT TABLET PO SCH (08:12)
[2019-01-25] MEDS: LIDOCAINE (700MG/PATCH) PATCH. TD SCH (08:12)
[2019-01-25 16:17] VITALS: BP 92/61
[2019-01-25] MEDS: CETIRIZINE HCL 10 MG TABLET PO SCH (20:28)
[2019-01-25] MEDS: ATORVASTATIN CALCIUM 10 MG TABLET. PO SCH (20:28)
[2019-01-25] MEDS: DIVALPROEX ER 250 MG TAB.ER.24H. PO SCH (20:29)
[2019-01-25] MEDS: PATCH REMOVAL. MC SCH (20:30)
[2019-01-25] MEDS: MIRTAZAPINE 15 MG TABLET PO SCH (20:42)
[2019-01-26] MEDS: LEVOTHYROXINE 75 MCG TABLET PO SCH (06:00)
[2019-01-26 06:16] VITALS: BP 103/70
--- NOTE | 2019-01-26 07:08 | PN ---
DATE: 01/25/2019 SUBJECTIVE: The patient was seen today, met with the staff, chart reviewed, and I am covering for Dr. Lopes. The patient's behavior continues to fluctuate. She continues to be irritable, petersen, refusing her meds. The patient's symptoms fluctuate day-to-day basis. The patient also gets angry easily, tried to dali her wheelchair through the door. The patient is also exhibiting poor impulse control and low frustration tolerance. OBSERVATIONS: VITAL SIGNS: Temperature 97.8, blood pressure 95/63, pulse is 76, respirations 18, O2 sat 98%. GENERAL: Slept about 6 hours last night. The patient's Remeron was increased to 22.5 mg at night from 15 mg at night. The patient is having difficulty with her ADLs. The patient is also exhibiting behavioral problems and also unpredictable behaviors at times. CURRENT MEDICATIONS: Include Depakote 500 mg at night, phenobarbital 64.8 mg b.i.d., olanzapine 5 mg b.i.d., Keppra 500 mg b.i.d., BuSpar 15 mg b.i.d. She is also on p.r.n. lorazepam, olanzapine, and trazodone. The patient is not having any side effects to medications. LABORATORY DATA: The patient's lab is reviewed. ASSESSMENT: Bipolar disorder, mixed with psychotic features; major neurocognitive disorder, most likely multifactorial with delusions, depression, and behavioral disturbances; anxiety disorder, unspecified. PLAN: To continue with the treatment. YA MARX MD DR: LOVE/eboni JOB#: [id number] / [id number]
[2019-01-26] MEDS: PANTOPRAZOLE 40 MG TABLET. PO SCH (07:30)
[2019-01-26] MEDS: busPIRone 15 MG TABLET. PO SCH ×2 (08:00→16:39)
[2019-01-26] MEDS: CALCIUM CARBONATE 500 MG TABLET PO SCH ×2 (08:00→16:40)
[2019-01-26] MEDS: CHOLECALCIFEROL (VITAMIN D3) 1,000 UNIT TABLET PO SCH (09:00)
[2019-01-26] MEDS: FELBAMATE 400 MG TABLET PO SCH ×3 (09:00→20:22)
[2019-01-26] MEDS: LACTOBACILLUS RHAMNOSUS GG 1 CAPSULE. PO SCH ×2 (09:00→20:22)
[2019-01-26] MEDS: LACOSAMIDE 50 MG TABLET PO SCH ×2 (09:00→20:15)
[2019-01-26] MEDS: FERROUS SULFATE 325 MG TABLET. PO SCH ×2 (09:00→16:40)
[2019-01-26] MEDS: MAGNESIUM OXIDE 400 MG TABLET PO SCH ×3 (09:00→20:14)
[2019-01-26] MEDS: PHENobarbital 32.4 MG TABLET. PO SCH ×2 (09:00→20:14)
[2019-01-26] MEDS: traMADol 50 MG TABLET PO SCH ×2 (09:00→20:13)
[2019-01-26] MEDS: levETIRAcetam 500 MG TABLET PO SCH ×2 (09:00→20:13)
[2019-01-26] MEDS: SERTRALINE 50 MG TABLET. PO SCH (09:00)
[2019-01-26] MEDS: LIDOCAINE (700MG/PATCH) PATCH. TD SCH (09:00)
[2019-01-26] MEDS: OLANZapine IM 10 MG VIAL. IM SCH (12:49)
[2019-01-26] MEDS: LORazepam 0.5 MG TABLET PO PRN (13:54)
[2019-01-26] MEDS ORDERED: QUEtiapine 25 MG TABLET. PO PRN (15:15)
[2019-01-26 16:40] VITALS: BP 157/74
--- NOTE | 2019-01-26 19:04 | PN ---
DATE: 01/24/2019 PSYCHIATRIC PROGRESS NOTE This late entry 01/24/2019 covers elements not covered in my initial note. SUBJECTIVE: I met with the patient in the morning. Overall, the patient remains somewhat withdrawn, anxious, slept 5-1/2 hours previous night. REVIEW OF SYSTEMS: Impaired ambulation in wheelchair, somewhat hard of hearing. No CV, , pulmonary, eye system symptoms on review. MENTAL STATUS EXAM: Oriented to herself, situation. Speech moderate latency, often responses monosyllabic. Abstraction fair, computation impaired, language function intact, attention span short. Mood and affect somewhat withdrawn. LABORATORY DATA: Reviewed. IMPRESSION: Unchanged from initial note. PLAN: No change from initial note. Dr. Troncoso will cover for me over the next few days during my vacation. MAN Luis QUIJANO MD DR: LOYD/eboni JOB#: [id number] / [id number]
[2019-01-26] MEDS: ATORVASTATIN CALCIUM 10 MG TABLET. PO SCH (20:13)
[2019-01-26] MEDS: CETIRIZINE HCL 10 MG TABLET PO SCH (20:13)
[2019-01-26] MEDS: DIVALPROEX ER 250 MG TAB.ER.24H. PO SCH (20:13)
[2019-01-26] MEDS: MIRTAZAPINE 15 MG TABLET PO SCH (20:14)
[2019-01-26] MEDS: PATCH REMOVAL. MC SCH (20:22)
[2019-01-26] MEDS: traZODone 50 MG TABLET. PO PRN (21:50)
--- NOTE | 2019-01-27 05:41 | PN ---
DATE: 01/26/2019 SUBJECTIVE: The patient was seen today, met with the staff, chart reviewed. Staff reports increased agitation, irritability, angry, hyperverbal, confused and also refusing her medications. OBSERVATION: VITAL SIGNS: Temperature 97.9, blood pressure 103/70, pulse 76, respirations 16, O2 sat 92%. GENERAL: Slept about 7 hours last night. CURRENT MEDICATIONS: The patient's current medications include Remeron 22.5 mg at night, Depakote 500 mg at night, phenobarbital 64.8 mg b.i.d., olanzapine 5 mg b.i.d., Keppra 500 mg b.i.d., buspirone 15 mg b.i.d. She is also on p.r.n. lorazepam, olanzapine and trazodone. The patient is not having any side effects, but the patient continues to show increased psychomotor activity, confusion, restlessness and difficult to manage. LABORATORY DATA: The patient's lab reviewed. Hemoglobin 11.4. The patient's sodium 146, BUN 23. Her ammonia level was 51 on 01/17/2019, dropped to 35 on 01/23/2019. ASSESSMENT: 1. Bipolar disorder, mixed, with psychotic features. 2. Major neurocognitive disorder, most likely multifactorial with the delusion, depression and behavioral disturbances. 3. Anxiety disorder, unspecified. PLAN: To continue with the treatment. The patient's medication was adjusted. The patient will be taken off the Ativan, also Zyprexa and started on Seroquel 25 mg q. 4 hours p.r.n., mainly for sedation as she is getting increasingly agitated. YA MARX MD DR: LOVE/eboni JOB#: [id number] / [id number]
[2019-01-27] MEDS: LEVOTHYROXINE 75 MCG TABLET PO SCH (06:00)
[2019-01-27] MEDS: MAGNESIUM OXIDE 400 MG TABLET PO SCH ×3 (08:31→20:01)
[2019-01-27] MEDS: SERTRALINE 50 MG TABLET. PO SCH (08:31)
[2019-01-27] MEDS: LACOSAMIDE 50 MG TABLET PO SCH ×2 (08:31→20:01)
[2019-01-27] MEDS: PANTOPRAZOLE 40 MG TABLET. PO SCH (08:31)
[2019-01-27] MEDS: busPIRone 15 MG TABLET. PO SCH ×2 (08:31→18:08)
[2019-01-27] MEDS: traMADol 50 MG TABLET PO SCH ×2 (08:32→20:02)
[2019-01-27] MEDS: CHOLECALCIFEROL (VITAMIN D3) 1,000 UNIT TABLET PO SCH (08:32)
[2019-01-27] MEDS: levETIRAcetam 500 MG TABLET PO SCH ×2 (08:32→20:01)
[2019-01-27] MEDS: FELBAMATE 400 MG TABLET PO SCH ×3 (08:32→20:00)
[2019-01-27] MEDS: PHENobarbital 32.4 MG TABLET. PO SCH ×2 (08:32→20:01)
[2019-01-27] MEDS: FERROUS SULFATE 325 MG TABLET. PO SCH ×2 (08:32→18:08)
[2019-01-27] MEDS: CALCIUM CARBONATE 500 MG TABLET PO SCH ×2 (08:32→18:08)
[2019-01-27] MEDS: OLANZapine IM 10 MG VIAL. IM SCH (08:33)
[2019-01-27] MEDS: LACTOBACILLUS RHAMNOSUS GG 1 CAPSULE. PO SCH ×2 (08:33→19:59)
[2019-01-27] MEDS: LIDOCAINE (700MG/PATCH) PATCH. TD SCH (08:34)
[2019-01-27 16:16] VITALS: BP 98/62
[2019-01-27] MEDS: ATORVASTATIN CALCIUM 10 MG TABLET. PO SCH (19:59)
[2019-01-27] MEDS: QUEtiapine 25 MG TABLET. PO SCH (20:00)
[2019-01-27] MEDS: CETIRIZINE HCL 10 MG TABLET PO SCH (20:00)
[2019-01-27] MEDS: DIVALPROEX ER 250 MG TAB.ER.24H. PO SCH (20:00)
[2019-01-27] MEDS: MIRTAZAPINE 15 MG TABLET PO SCH (20:01)
[2019-01-27] MEDS: PATCH REMOVAL. MC SCH (20:05)
--- NOTE | 2019-01-28 04:39 | PN ---
DATE: SUBJECTIVE: The patient was seen today, met with the staff, chart reviewed. The patient continues to be irritable, petersen, constantly agitated. The patient is apparently not responding to her medications. OBSERVATION: VITAL SIGNS: The patient refused vital signs today. GENERAL: The patient Slept about 7 hours last night. Appetite is fair. MEDICATIONS: The patient's current medication includes Remeron 22.5 mg daily, Depakote 500 mg at night, phenobarbital 64.8 mg b.i.d., olanzapine 5 mg b.i.d., Keppra 500 mg b.i.d., BuSpar 15 mg b.i.d. She is also on p.r.n. lorazepam, olanzapine and trazodone. The patient is not showing any side effects to medications. LABORATORY DATA: The patient's lab reviewed. No change from previous levels. ASSESSMENT: 1. Bipolar disorder, mixed, with psychotic features. 2. Major neurocognitive disorder, most likely multifactorial with delusions, depression, behavioral disturbances. 3. Anxiety disorder, unspecified. PLAN: The patient's Seroquel was changed to 25 mg b.i.d. Continue with the current treatment plan. YA MARX MD DR: LOVE/eboni JOB#: [id number] / [id number]
[2019-01-28 05:56] VITALS: BP 128/85
[2019-01-28] MEDS: LEVOTHYROXINE 75 MCG TABLET PO SCH (06:06)
[2019-01-28] MEDS: FERROUS SULFATE 325 MG TABLET. PO SCH ×2 (08:41→17:18)
[2019-01-28] MEDS: QUEtiapine 25 MG TABLET. PO SCH ×2 (08:41→20:53)
[2019-01-28] MEDS: FELBAMATE 400 MG TABLET PO SCH ×3 (08:41→20:53)
[2019-01-28] MEDS: CALCIUM CARBONATE 500 MG TABLET PO SCH ×2 (08:41→17:18)
[2019-01-28] MEDS: SERTRALINE 50 MG TABLET. PO SCH (08:41)
[2019-01-28] MEDS: PANTOPRAZOLE 40 MG TABLET. PO SCH (08:41)
[2019-01-28] MEDS: busPIRone 15 MG TABLET. PO SCH ×2 (08:41→17:18)
[2019-01-28] MEDS: LACTOBACILLUS RHAMNOSUS GG 1 CAPSULE. PO SCH ×2 (08:42→20:53)
[2019-01-28] MEDS: LIDOCAINE (700MG/PATCH) PATCH. TD SCH (08:42)
[2019-01-28] MEDS: levETIRAcetam 500 MG TABLET PO SCH ×2 (08:42→20:53)
[2019-01-28] MEDS: CHOLECALCIFEROL (VITAMIN D3) 1,000 UNIT TABLET PO SCH (08:42)
[2019-01-28] MEDS: MAGNESIUM OXIDE 400 MG TABLET PO SCH ×3 (08:45→20:53)
[2019-01-28] MEDS: traMADol 50 MG TABLET PO SCH ×2 (08:45→20:53)
[2019-01-28] MEDS: PHENobarbital 32.4 MG TABLET. PO SCH ×2 (08:46→20:51)
[2019-01-28] MEDS: LACOSAMIDE 50 MG TABLET PO SCH ×2 (08:46→20:51)
[2019-01-28 13:17] LABS: BILIRUBIN,URINE NEG (NEG); CLARITY,URINE CLOUDY; COLOR,URINE YELLOW; GLUCOSE,URINE NEG (NEG)
[2019-01-28 13:18] LABS: BACTERIA,URINE MANY /HPF (0-FEW); NITRITE,URINE POS (NEG); SQUAMOUS EPITHELIAL CELL,UR MOD /LPF; UROBILINOGEN,URINE 0.2 mg/dL (0.2 mg/dL); WBC,URINE >40 /HPF (0-4)
[2019-01-28 16:12] VITALS: BP 90/61
[2019-01-28 20:39] VITALS: BP 117/67
[2019-01-28] MEDS: MIRTAZAPINE 15 MG TABLET PO SCH (20:52)
[2019-01-28] MEDS: CETIRIZINE HCL 10 MG TABLET PO SCH (20:52)
[2019-01-28] MEDS: DIVALPROEX ER 250 MG TAB.ER.24H. PO SCH (20:53)
[2019-01-28] MEDS: ATORVASTATIN CALCIUM 10 MG TABLET. PO SCH (20:53)
[2019-01-28] MEDS: PATCH REMOVAL. MC SCH (20:53)
[2019-01-28] MEDS: IBUPROFEN 400 MG TABLET. PO PRN (23:56)
[2019-01-28] MEDS: traZODone 50 MG TABLET. PO PRN (23:56)
[2019-01-29] MEDS: LEVOTHYROXINE 75 MCG TABLET PO SCH (06:15)
[2019-01-29 06:30] VITALS: BP 93/60
[2019-01-29] MEDS: LACTOBACILLUS RHAMNOSUS GG 1 CAPSULE. PO SCH ×2 (09:43→19:28)
[2019-01-29] MEDS: CHOLECALCIFEROL (VITAMIN D3) 1,000 UNIT TABLET PO SCH (09:43)
[2019-01-29] MEDS: FELBAMATE 400 MG TABLET PO SCH ×3 (09:44→19:29)
[2019-01-29] MEDS: traMADol 50 MG TABLET PO SCH ×2 (09:44→19:33)
[2019-01-29] MEDS: MAGNESIUM OXIDE 400 MG TABLET PO SCH ×3 (09:44→19:29)
[2019-01-29] MEDS: CALCIUM CARBONATE 500 MG TABLET PO SCH ×2 (09:44→17:14)
[2019-01-29] MEDS: FERROUS SULFATE 325 MG TABLET. PO SCH ×2 (09:44→17:14)
[2019-01-29] MEDS: LACOSAMIDE 50 MG TABLET PO SCH ×2 (09:44→19:32)
[2019-01-29] MEDS: PHENobarbital 32.4 MG TABLET. PO SCH ×2 (09:44→19:32)
[2019-01-29] MEDS: SERTRALINE 50 MG TABLET. PO SCH (09:45)
[2019-01-29] MEDS: PANTOPRAZOLE 40 MG TABLET. PO SCH (09:45)
[2019-01-29] MEDS: busPIRone 15 MG TABLET. PO SCH ×2 (09:45→17:14)
[2019-01-29] MEDS: QUEtiapine 25 MG TABLET. PO SCH ×2 (09:45→19:30)
[2019-01-29] MEDS: levETIRAcetam 500 MG TABLET PO SCH ×2 (09:48→19:29)
[2019-01-29] MEDS: LIDOCAINE (700MG/PATCH) PATCH. TD SCH (09:56)
[2019-01-29 16:16] VITALS: BP 95/62
[2019-01-29] MEDS: traMADol 50 MG TABLET PO PRN (17:13)
[2019-01-29] MEDS: PATCH REMOVAL. MC SCH (17:14)
--- NOTE | 2019-01-29 17:19 | PN ---
DATE: 01/28/2019 SUBJECTIVE: The patient was seen today, met with the staff, chart reviewed. The patient's behavior has improved slightly. She tends to stay in bed most of the time. The patient had a UA and sent for culture and sensitivity, will be started on antibiotics for UTI. The patient has been followed by Dr. Ackerman. OBJECTIVE: VITAL SIGNS: Temperature 97.0, blood pressure 128/85, pulse 66, respirations 18, O2 sat 92%. GENERAL: Slept about 8 hours last night. The patient's appetite fair. The patient is not having any side effects to the medications. LABORATORY DATA: The patient's lab reviewed. Hemoglobin is 11.4. No changes from the previous levels. The patient's Depakote level was 58. ASSESSMENT: 1. Bipolar disorder, mixed, with psychotic features. 2. Major neurocognitive disorder, most likely multifactorial with delusions, depression and behavioral disturbances. 3. Anxiety disorder, unspecified. PLAN: To continue with the treatment. Seroquel was changed to 25 mg b.i.d. p.o. YA MARX MD DR: LOVE/eboni JOB#: [id number] / [id number]
[2019-01-29] MEDS: DIVALPROEX ER 250 MG TAB.ER.24H. PO SCH (19:28)
[2019-01-29] MEDS: ATORVASTATIN CALCIUM 10 MG TABLET. PO SCH (19:29)
[2019-01-29] MEDS: MIRTAZAPINE 15 MG TABLET PO SCH (19:29)
[2019-01-29] MEDS: CETIRIZINE HCL 10 MG TABLET PO SCH (19:30)
[2019-01-30] MEDS: LEVOTHYROXINE 75 MCG TABLET PO SCH (05:55)
[2019-01-30 06:01] VITALS: BP 97/65
--- NOTE | 2019-01-30 06:20 | PN ---
DATE: 01/29/2019 SUBJECTIVE: The patient was seen today, met with the staff, chart reviewed. The patient continues to show fluctuating symptoms, much calmer today and also the patient constantly repetitive with her statements, mostly monosyllabic. The patient is difficult to redirect. The patient is also exhibiting impulse control, low frustration tolerance. OBSERVATION: VITAL SIGNS: Temperature 97.0, blood pressure 93/60, pulse 65, respirations 16, O2 sat 95%. GENERAL: Slept about 6 hours last night. The patient's appetite is fair. LABORATORY DATA: The patient's lab reviewed. The patient's Depakote level was 58. CURRENT MEDICATIONS: Include BuSpar 15 mg b.i.d., Remeron 22.5 mg at night that was increased yesterday, Zyprexa 5 mg b.i.d., Zyprexa Zydis 2.5 mg q. 2 hours p.r.n. The patient is also on Seroquel 25 mg b.i.d. p.o., Depakote ER 750 mg at night, Keppra 500 mg b.i.d., phenobarbital 64.8 mg b.i.d., Vimpat 200 mg b.i.d. and Zoloft 50 mg daily. ASSESSMENT: 1. Bipolar disorder, mixed with psychotic features. 2. Major neurocognitive disorder, most likely multifactorial with delusions, depression and behavioral disturbances. 3. Anxiety disorder, unspecified. PLAN: To continue with the treatment. YA MARX MD DR: LOVE/eboni JOB#: [id number] / [id number]
[2019-01-30] MEDS: PANTOPRAZOLE 40 MG TABLET. PO SCH (07:30)
[2019-01-30] MEDS: CALCIUM CARBONATE 500 MG TABLET PO SCH ×2 (08:00→17:00)
[2019-01-30] MEDS: MAGNESIUM OXIDE 400 MG TABLET PO SCH ×3 (09:00→20:08)
[2019-01-30] MEDS: FERROUS SULFATE 325 MG TABLET. PO SCH ×2 (09:00→17:19)
[2019-01-30] MEDS: CHOLECALCIFEROL (VITAMIN D3) 1,000 UNIT TABLET PO SCH (09:00)
[2019-01-30] MEDS: LIDOCAINE (700MG/PATCH) PATCH. TD SCH (09:00)
[2019-01-30] MEDS: LACTOBACILLUS RHAMNOSUS GG 1 CAPSULE. PO SCH ×2 (09:00→20:07)
[2019-01-30 09:45] LABS: BASO % 1 % (0-3); EOS # 0.5 x10^3/uL (0.0-0.7); EOS % 8 % (0-3); HEMATOCRIT 33.6 % (36.0-47.0); HEMOGLOBIN 11.2 g/dL (12.0-15.5); LYMPH # 1.7 x10^3/uL (1.0-4.8); LYMPH % 25 % (24-48); MEAN CORPUSCULAR HEMOGLOBIN 32 pg (25-35); MEAN CORPUSCULAR HGB CONC 33 g/dL (31-37); MEAN CORPUSCULAR VOLUME 96 fL (79-100); MONO # 0.8 x10^3/uL (0.0-1.1); MONO % 11 % (0-9); NEUT # 3.9 x10^3uL (1.8-7.7); NEUT % 56 % (31-73); PLATELET COUNT 184 x10^3/uL (140-400); RED BLOOD COUNT 3.52 x10^6/uL (3.50-5.40); RED CELL DISTRIBUTION WIDTH 13.4 % (11.5-14.5)
[2019-01-30 09:46] LABS: ALBUMIN 2.7 g/dL (3.4-5.0); ALBUMIN/GLOBULIN RATIO 0.8 (1.0-1.7); CALCIUM 8.5 mg/dL (8.5-10.1); CREATININE 0.6 mg/dL (0.6-1.0); POTASSIUM 3.4 mmol/L (3.5-5.1); TOTAL BILIRUBIN 0.2 mg/dL (0.2-1.0); TOTAL PROTEIN 6.2 g/dL (6.4-8.2)
[2019-01-30] MEDS: LACOSAMIDE 50 MG TABLET PO SCH ×2 (11:53→20:10)
[2019-01-30] MEDS: busPIRone 15 MG TABLET. PO SCH ×3 (11:53→17:48)
[2019-01-30] MEDS: PHENobarbital 32.4 MG TABLET. PO SCH ×2 (11:54→20:08)
[2019-01-30] MEDS: SERTRALINE 50 MG TABLET. PO SCH (11:54)
[2019-01-30] MEDS: levETIRAcetam 500 MG TABLET PO SCH ×2 (11:54→20:08)
[2019-01-30] MEDS: FELBAMATE 400 MG TABLET PO SCH ×4 (11:54→20:08)
[2019-01-30] MEDS: traMADol 50 MG TABLET PO SCH ×2 (11:55→20:10)
[2019-01-30] MEDS: QUEtiapine 25 MG TABLET. PO SCH ×2 (11:55→20:09)
[2019-01-30 17:00] VITALS: BP 118/73
[2019-01-30] MEDS: PATCH REMOVAL. MC SCH (19:17)
[2019-01-30] MEDS: MIRTAZAPINE 15 MG TABLET PO SCH (20:08)
[2019-01-30] MEDS: DIVALPROEX ER 250 MG TAB.ER.24H. PO SCH (20:08)
[2019-01-30] MEDS: CETIRIZINE HCL 10 MG TABLET PO SCH (20:10)
[2019-01-30] MEDS: ATORVASTATIN CALCIUM 10 MG TABLET. PO SCH (20:10)
--- NOTE | 2019-01-31 04:41 | PN ---
DATE: 01/30/2019 SUBJECTIVE: The patient was seen today, met with the staff, chart reviewed. The patient continues to exhibit behavior problems, increased agitation, fluctuating symptoms, combative behaviors and increased confusion. OBSERVATION: VITAL SIGNS: Temperature 97.8, blood pressure 97/65, pulse 75, respirations 18, O2 sat 95%. GENERAL: Slept only about 4 hours last night. CURRENT MEDICATIONS: The patient's current medications include BuSpar 15 mg b.i.d., Remeron 22.5 mg at night, Zyprexa 5 mg b.i.d. and 2.5 mg q. 2 hours p.r.n., Keppra 500 mg b.i.d., phenobarbital 64.8 mg b.i.d., Vimpat 200 mg b.i.d. and Zoloft 50 mg daily. ASSESSMENT: 1. Bipolar disorder, mixed, with psychotic features. 2. Major neurocognitive disorder, most likely multifactorial with the delusions, depression, and behavioral disturbances. 3. Anxiety disorder, unspecified. PLAN: To continue with the treatment. YA MARX MD DR: LOVE/eboni JOB#: [id number] / [id number]
[2019-01-31] MEDS: LEVOTHYROXINE 75 MCG TABLET PO SCH (05:32)
[2019-01-31] MEDS: PANTOPRAZOLE 40 MG TABLET. PO SCH (07:30)
[2019-01-31 07:45] VITALS: BP 105/77
[2019-01-31] MEDS: busPIRone 15 MG TABLET. PO SCH ×2 (07:49→17:00)
[2019-01-31] MEDS: LACOSAMIDE 50 MG TABLET PO SCH ×2 (07:50→20:13)
[2019-01-31] MEDS: FELBAMATE 400 MG TABLET PO SCH ×3 (07:50→20:10)
[2019-01-31] MEDS: PHENobarbital 32.4 MG TABLET. PO SCH ×2 (07:50→20:11)
[2019-01-31] MEDS: traMADol 50 MG TABLET PO SCH ×2 (07:50→20:12)
[2019-01-31] MEDS: SERTRALINE 50 MG TABLET. PO SCH (07:50)
[2019-01-31] MEDS: levETIRAcetam 500 MG TABLET PO SCH ×2 (07:50→20:10)
[2019-01-31] MEDS: QUEtiapine 25 MG TABLET. PO SCH ×2 (07:51→20:12)
[2019-01-31] MEDS: CALCIUM CARBONATE 500 MG TABLET PO SCH ×2 (08:00→17:00)
[2019-01-31] MEDS: LACTOBACILLUS RHAMNOSUS GG 1 CAPSULE. PO SCH ×2 (08:14→20:09)
[2019-01-31] MEDS: LIDOCAINE (700MG/PATCH) PATCH. TD SCH (08:14)
[2019-01-31] MEDS: CHOLECALCIFEROL (VITAMIN D3) 1,000 UNIT TABLET PO SCH (08:14)
[2019-01-31] MEDS: FERROUS SULFATE 325 MG TABLET. PO SCH ×2 (08:14→17:24)
[2019-01-31] MEDS: MAGNESIUM OXIDE 400 MG TABLET PO SCH ×3 (08:14→20:11)
[2019-01-31 15:46] VITALS: BP 93/53
[2019-01-31] MEDS ORDERED: NYSTATIN TOPICAL POWDER 15GM BOTTLE. TP PRN (17:15)
[2019-01-31] MEDS: PATCH REMOVAL. MC SCH (19:07)
[2019-01-31] MEDS: DIVALPROEX ER 250 MG TAB.ER.24H. PO SCH (20:10)
[2019-01-31] MEDS: ATORVASTATIN CALCIUM 10 MG TABLET. PO SCH (20:11)
[2019-01-31] MEDS: POTASSIUM CHLORIDE 20 MEQ TABLET.ER. PO SCH (20:11)
[2019-01-31] MEDS: CEFDINIR 300 MG CAPSULE PO SCH (20:11)
[2019-01-31] MEDS: MIRTAZAPINE 15 MG TABLET PO SCH (20:12)
[2019-01-31] MEDS: CETIRIZINE HCL 10 MG TABLET PO SCH (20:13)
[2019-02-01] MEDS: LEVOTHYROXINE 75 MCG TABLET PO SCH (05:30)
[2019-02-01 07:15] VITALS: BP 96/62
[2019-02-01] MEDS: busPIRone 15 MG TABLET. PO SCH (08:16)
[2019-02-01] MEDS: PANTOPRAZOLE 40 MG TABLET. PO SCH (08:16)
[2019-02-01] MEDS: CALCIUM CARBONATE 500 MG TABLET PO SCH (08:17)
[2019-02-01] MEDS: LACTOBACILLUS RHAMNOSUS GG 1 CAPSULE. PO SCH (08:17)
[2019-02-01] MEDS: levETIRAcetam 500 MG TABLET PO SCH (08:19)
[2019-02-01] MEDS: FELBAMATE 400 MG TABLET PO SCH ×2 (08:19→13:50)
[2019-02-01] MEDS: FERROUS SULFATE 325 MG TABLET. PO SCH (08:19)
[2019-02-01] MEDS: CEFDINIR 300 MG CAPSULE PO SCH (08:20)
[2019-02-01] MEDS: MAGNESIUM OXIDE 400 MG TABLET PO SCH ×2 (08:20→13:50)
[2019-02-01] MEDS: PHENobarbital 32.4 MG TABLET. PO SCH (08:20)
[2019-02-01] MEDS: POTASSIUM CHLORIDE 20 MEQ TABLET.ER. PO SCH (08:20)
[2019-02-01] MEDS: CHOLECALCIFEROL (VITAMIN D3) 1,000 UNIT TABLET PO SCH (08:21)
[2019-02-01] MEDS: SERTRALINE 50 MG TABLET. PO SCH (08:21)
[2019-02-01] MEDS: traMADol 50 MG TABLET PO SCH (08:21)
[2019-02-01] MEDS: QUEtiapine 25 MG TABLET. PO SCH (08:21)
[2019-02-01] MEDS: LACOSAMIDE 50 MG TABLET PO SCH (08:21)
[2019-02-01] MEDS: LIDOCAINE (700MG/PATCH) PATCH. TD SCH (09:00)
[2019-02-01] MEDS ORDERED: ONDANSETRON ODT 4 MG TAB.RAPDIS PO PRN (12:15)
[2019-02-01 13:05] VITALS: BP 109/71
[2019-02-01 13:16] VITALS: BP 108/58
[2019-02-01 13:47] LABS: BASO % 1 % (0-3); EOS # 0.2 x10^3/uL (0.0-0.7); EOS % 4 % (0-3); HEMATOCRIT 36.6 % (36.0-47.0); HEMOGLOBIN 11.9 g/dL (12.0-15.5); LYMPH # 0.7 x10^3/uL (1.0-4.8); LYMPH % 16 % (24-48); MEAN CORPUSCULAR HEMOGLOBIN 32 pg (25-35); MEAN CORPUSCULAR HGB CONC 33 g/dL (31-37); MEAN CORPUSCULAR VOLUME 99 fL (79-100); MONO # 0.4 x10^3/uL (0.0-1.1); MONO % 10 % (0-9); NEUT # 2.8 x10^3uL (1.8-7.7); NEUT % 69 % (31-73); PLATELET COUNT 124 x10^3/uL (140-400); RED CELL DISTRIBUTION WIDTH 14.5 % (11.5-14.5); WHITE BLOOD COUNT 4.1 x10^3/uL (4.0-11.0)
[2019-02-01 14:04] LABS: ALBUMIN 2.8 g/dL (3.4-5.0); ALBUMIN/GLOBULIN RATIO 0.8 (1.0-1.7); CALCIUM 8.5 mg/dL (8.5-10.1); CREATININE 0.8 mg/dL (0.6-1.0); GFR 71.8; POTASSIUM 4.1 mmol/L (3.5-5.1); TOTAL BILIRUBIN 0.2 mg/dL (0.2-1.0); TOTAL PROTEIN 6.3 g/dL (6.4-8.2)
[2019-02-01] MEDS ORDERED: IOHEXOL 300 MG/ML 75 ML VIAL. IV ONE (15:15)
[2019-02-01 15:54] VITALS: BP 105/63
[2019-02-01] MEDS ORDERED: CEFD300C PO (16:08)
[2019-02-01] MEDS ORDERED: DIVA250T PO (16:10)
[2019-02-01] MEDS ORDERED: L. R1CAP2 PO (16:11)
[2019-02-01] MEDS ORDERED: LIDO1ADH63 TP (16:12)
[2019-02-01] MEDS ORDERED: NYST15PO9 TP (16:14)
[2019-02-01] MEDS ORDERED: OLAN5TAB5 PO (16:15)
[2019-02-01] MEDS ORDERED: ONDA4TAB7 PO (16:16)
[2019-02-01] MEDS ORDERED: POTA20TA4 PO (16:17)
[2019-02-01] MEDS ORDERED: QUET25TA5 PO ×2 (16:18→16:20)
[2019-02-01] MEDS ORDERED: SERT50TA PO (16:20)
--- NOTE | 2019-02-01 16:58 | PN ---
DATE: 02/01/2019 SUBJECTIVE: The patient was seen today, met with the staff, chart reviewed. Staff reports some improvement since she has been started on IV antibiotics for UTI. The patient is less confused. OBSERVATION: VITAL SIGNS: Temperature 97.9, blood pressure 96/62, pulse 91, respirations 21, O2 sat 99%. GENERAL: Slept about 8 hours last night. The patient's appetite improved. The patient is not having any side effects to the medications. CURRENT MEDICATIONS: Include BuSpar 15 mg b.i.d., Remeron 22.5 mg at night, Zyprexa 5 mg b.i.d. and 2.5 mg q. 2 hours p.r.n., Keppra 500 mg b.i.d., phenobarbital 64.8 mg b.i.d., Vimpat 200 mg b.i.d. and Zoloft 50 mg daily. ASSESSMENT: 1. Bipolar disorder, mixed, with psychotic features. 2. Major neurocognitive disorder, most likely multifactorial with delusions, depression, behavioral disturbances. 3. Anxiety disorder, unspecified. PLAN: To continue with the treatment. YA MARX MD DR: LOVE/eboni JOB#: [id number] / [id number]
== END 2019-02-01 16:38 | disposition short-term general hospital (02) | DRG 885 ==
LOC: ER 05:52 → GEROPSY 11:03
PROVIDERS: ADMIT Psychiatry & Neurology Psychiatry; ATTEND Psychiatry & Neurology Psychiatry
DX: F31.64 Bipolar disorder, current episode mixed, severe, with psychotic features (principal); N39.0 Urinary tract infection, site not specified; F01.51 Vascular dementia, unspecified severity, with behavioral disturbance; F63.9 Impulse disorder, unspecified; F41.9 Anxiety disorder, unspecified; F43.21 Adjustment disorder with depressed mood; E03.9 Hypothyroidism, unspecified; E78.00 Pure hypercholesterolemia, unspecified; E78.5 Hyperlipidemia, unspecified; G40.909 Epilepsy, unspecified, not intractable, without status epilepticus; K21.9 Gastro-esophageal reflux disease without esophagitis; W22.8XXA Striking against or struck by other objects, initial encounter; Z79.899 Other long term (current) drug therapy; Z87.440 Personal history of urinary (tract) infections; Z87.891 Personal history of nicotine dependence; Z96.642 Presence of left artificial hip joint; M19.90 Unspecified osteoarthritis, unspecified site; Z88.8 Allergy status to other drugs, medicaments and biological substances
CPT/HCPCS: 36415; 80053; 80061; 80164; 80184; 80185; 81001; 82140; 82306; 83036; 83540; 83550; 83605; 83615; 83690; 83735; 84436; 84443; 84480; 85025; 86592; 87086; 87186; 90471; 90686; 93005; J3490; P9612; Q0162; 99285-25

== ENCOUNTER 2019-02-01 17:03 | Inpatient (IN) | payer MEDICARE, OTHER ==
[~2019-02-01] VITALS: Ht 172.7 cm; Wt 77.1 kg
[~2019-02-01 17:03] MED LIST changes: +CEFD300C PO; +DIVA250T PO; +L. R1CAP2 PO; +LIDO1ADH63 TP; +NYST15PO9 TP; +OLAN5TAB5 PO; +ONDA4TAB7 PO; +POTA20TA4 PO; +SERT50TA PO
[2019-02-01 18:00] VITALS: BP 115/74
[2019-02-01] MEDS ORDERED: IV NORMAL SALINE 1,000ML 1,000 ML IV ONE (18:00)
[2019-02-01 19:00] VITALS: BP 98/64
--- NOTE | 2019-02-01 19:03 | RAD ---
PQRS Compliance Statement: One or more of the following individualized dose reduction techniques were utilized for this examination: 1. Automated exposure control 2. Adjustment of the mA and/or kV according to patient size 3. Use of iterative reconstruction technique CT CHEST ABDOMEN PELVIS WO 02/01/2019 5:29 PM INDICATION: Sepsis COMPARISON: None available TECHNIQUE: Multiple axial CT images of the chest, abdomen and pelvis were obtained without intravenous contrast. Coronal and sagittal reformats are provided. FINDINGS: There is medial deviation of the left true cord which could be associated with vocal cord palsy. Thyroid gland is normal in appearance. Precarinal lymph node measures 7 mm by short axis. Heart size is within normal limits. Small hiatal hernia. Left chest wall battery pack is noted at the single lead extending cranially. Evaluation of right hilar lymphadenopathy is limited by lack of intravenous contrast. Suspect an infrarenal right hilar lymph node measuring 14 mm by short axis. Patchy groundglass opacities are noted throughout the right upper and lower lobes. There is nodular consolidative change at the right lung base measuring 2.9 x 2.8 cm. Evaluation of solid abdominal viscera is limited by lack of intravenous contrast. Evaluation is limited by positioning with arms down. Liver, spleen, bilateral adrenal glands and pancreas are normal in appearance. Abdominal aorta is normal in course and caliber. There are no pathologically enlarged lymph nodes in abdomen and pelvis. There is no free fluid or free intraperitoneal air. Small large bowel are normal in caliber. No evidence for bowel obstruction or inflammation. Appendix is normal in appearance. No pericecal inflammatory changes are identified. The kidneys are relatively symmetric in appearance. There is no suspicious renal mass within the limitations of a noncontrast examination. There is no hydronephrosis. There are no calculi within the kidneys, ureters or urinary bladder. Licona catheter decompresses the urinary bladder. Small amount of gas within urinary bladder is likely iatrogenic. Left total hip arthroplasty is identified with streak artifact limiting evaluation of the lower pelvis. No suspicious osseous abnormality is identified. Remote healed right lateral eighth rib fracture is identified. IMPRESSION: 1. 2.9 x 2.8 cm nodular mass in the right lower lobe may represent rounded pneumonia versus primary lung malignancy. Additional areas of scattered groundglass opacities are noted throughout the right lung which may represent pneumonitis of infectious/inflammatory etiology. Right infrahilar lymph node is enlarged and may be metastatic or reactive. Further evaluation with PET/CT may be of benefit. 2. No suspicious abnormality identified within the abdomen and pelvis. Electronically signed by: Lashawn Gilbert MD (02/01/2019 7:00 PM) [facility] [place]
[2019-02-01 19:12] LABS: BGAS PH 7.42 (7.35-7.45)
[2019-02-01] MEDS: ACETAMINOPHEN 650 MG SUPP.RECT. PR PRN (19:16)
[2019-02-01] MEDS: PIPERACILLIN/TAZOBACTAM 3.375 GM in IV NORMAL SALINE 50ML 50 ML IV SCH (19:30)
[2019-02-01 19:31] LABS: BILIRUBIN,URINE NEG (NEG); CLARITY,URINE CLEAR; COLOR,URINE YELLOW; GLUCOSE,URINE NEG (NEG); NITRITE,URINE NEG (NEG); UROBILINOGEN,URINE 1 mg/dL (0.2 mg/dL)
[2019-02-01 19:32] LABS: BACTERIA,URINE FEW /HPF (0-FEW); SQUAMOUS EPITHELIAL CELL,UR MOD /LPF
[2019-02-01 20:00] VITALS: BP 103/64
[2019-02-01] MEDS: IV NORMAL SALINE 1,000ML 1,000 ML IV SCH (20:01)
[2019-02-01] MEDS: DIVALPROEX ER 250 MG TAB.ER.24H. PO SCH ×2 (20:52→21:00)
[2019-02-01 21:00] VITALS: BP 97/59
[2019-02-01] MEDS ORDERED: levETIRAcetam 500 MG TABLET PO SCH (21:00)
[2019-02-01 22:00] VITALS: BP 100/54
[2019-02-01 23:00] VITALS: BP 90/52
[2019-02-02] VITALS (23 sets, daily range): BP systolic 87–126; BP diastolic 41–75
[2019-02-02] MEDS: IV NORMAL SALINE 1,000ML 1,000 ML IV SCH ×2 (04:41→11:21)
[2019-02-02] MEDS: PIPERACILLIN/TAZOBACTAM 3.375 GM in IV NORMAL SALINE 50ML 50 ML IV SCH ×3 (06:14→23:10)
[2019-02-02] MEDS: ACETAMINOPHEN 650 MG SUPP.RECT. PR PRN (17:04)
[2019-02-02] MEDS ORDERED: guaiFENesin 300 MG/15 ML LIQUID PO PRN (17:30)
[2019-02-02] MEDS ORDERED: IBUPROFEN 400 MG TABLET. PO PRN (17:30)
[2019-02-02] MEDS ORDERED: MAG HYDROX/AL HYDROX/SIMETH 30 ML ORAL.SUSP PO PRN (17:30)
[2019-02-02] MEDS ORDERED: BISACODYL 10 MG SUPP.RECT RC PRN (17:30)
[2019-02-02] MEDS ORDERED: traMADol 50 MG TABLET PO PRN (17:30)
[2019-02-02] MEDS ORDERED: QUEtiapine 25 MG TABLET. PO PRN (17:30)
[2019-02-02] MEDS ORDERED: MINERAL OIL/PETROLATUM TOPICAL CREAM 113GM JAR. TP PRN (17:30)
[2019-02-02] MEDS: FERROUS SULFATE 325 MG TABLET. PO SCH (18:00)
[2019-02-02] MEDS: QUEtiapine 25 MG TABLET. PO SCH (19:45)
[2019-02-02] MEDS: ATORVASTATIN CALCIUM 10 MG TABLET. PO SCH (19:45)
[2019-02-02] MEDS: POTASSIUM CHLORIDE 20 MEQ TABLET.ER. PO SCH (19:46)
[2019-02-02] MEDS: traZODone 50 MG TABLET. PO PRN (19:46)
[2019-02-02] MEDS: FELBAMATE 400 MG TABLET PO SCH (19:46)
[2019-02-02] MEDS: MAGNESIUM OXIDE 400 MG TABLET PO SCH (19:46)
[2019-02-02] MEDS: CETIRIZINE HCL 10 MG TABLET PO SCH (19:47)
[2019-02-02] MEDS: DIVALPROEX ER 250 MG TAB.ER.24H. PO SCH (19:48)
--- NOTE | 2019-02-02 20:49 | HP ---
ADMIT DATE: 02/01/2019 HISTORY OF PRESENT ILLNESS: The patient was transferred from ____ yesterday on an account of altered mental status, sepsis and lactic acidosis who was hypoxic, hypotensive. Her oxygen saturation was only 84% on 2 liters; titrated up to 4 liters, only about 90%. Her temperature was also up at 100.8 and tachypneic and tachycardic. We did some lab work, which showed that she is dehydrated and has lactic acidosis. She apparently has marked leukocyturia and positive nitrite in her urine and her urine culture has grown more than 100,000 colony forming units per mL of Escherichia coli, sensitive to CEFEPIME, CEFTRIAXONE, CEFUROXIME, ERTAPENEM, MEROPENEM, PIPERACILLIN and TAZOBACTAM. We did actually arrange for a CT scan of the chest, abdomen, and pelvis, which showed that the patient has 2.9 x 2.8 cm nodular mass in the right lower lobe that represent a rounded pneumonia versus primary lung malignancy. Additional areas of scattered ground glass opacities are noted throughout the right lung, which may represent pneumonitis with infectious inflammatory etiology, right infrahilar lymph node is enlarged and may be metastatic or reactive. Further evaluation by PET CT scan can be beneficial. No suspicious abnormality identified within the abdomen or pelvis. So, therefore, the patient was transferred to ICU with possible healthcare-associated pneumonia as well as urinary tract infection with sepsis and lactic acidosis. PAST MEDICAL HISTORY: Significant for hyperlipidemia, hypothyroidism, urinary incontinence, and seizure disorder. PAST SURGICAL HISTORY: Unremarkable. PAST PSYCHIATRIC HISTORY: Significant for multiple psychiatric hospitalizations for bipolar disorder mixed with psychotic features. CODE STATUS: Full. ALLERGIES: She is allergic to CLOBAZAM, HYDROCODONE, and VANCOMYCIN. FAMILY HISTORY: Noncontributory. SOCIAL HISTORY: She is a resident at [facility]. She does not smoke, drink alcohol, or use any recreational drugs. REVIEW OF SYSTEMS: As per history of present illness. MEDICATIONS: She is currently on following medications: She is normally on cetirizine 10 mg at bedtime, cefdinir 300 mg twice a day, ferrous sulfate 325 mg twice a day, atorvastatin calcium 10 mg at bedtime, ibuprofen 400 mg every 4 hours, analgesic balm 1 application topically q.i.d., tramadol 50 mg twice a day, acetaminophen 650 mg every 6 hours, Depakote 250 mg extended release she takes 750 mg at bedtime, felbamate 400 mg 3 times a day, lacosamide 200 mg twice a day, levetiracetam 500 mg twice a day, mirtazapine 22.5 mg at bedtime, sertraline 50 mg at bedtime, trazodone 50 mg at bedtime as needed for insomnia, olanzapine for Zyprexa Zydis 2.5 mg every 2 hours as needed for anxiety and agitation, Seroquel 25 mg twice a day, phenobarbital 64.8 mg twice a day, buspirone 15 mg twice a day with meals, calcium carbonate 500 mg twice a day, potassium chloride 20 mEq twice a day, guaifenesin 100 mg/5 mL and she takes 5 mL every 4 hours, Maalox 15 mL after meals and as needed, magnesium oxide 400 mg 3 times a day, bisacodyl 10 mg suppository rectally daily p.r.n. for constipation, milk of magnesia 30 mL p.o. daily p.r.n. for constipation, ondansetron 4 mg every 4 hours, Protonix 40 mg daily, Lactobacillus rhamnosus 1 capsule twice a day, levothyroxine sodium 75 mcg once a day, nystatin powder applied topically 3 times a day, Lidoderm patch applied topically to both shoulders on for 12 hours and off for 12 hours, Eucerin cream apply topically twice a day for dry skin, cholecalciferol 4000 international unit once a day. PHYSICAL EXAMINATION: GENERAL: On arrival to the ICU, she was pale. No jaundice, cyanosis, or thyromegaly. No jugular venous distention. No limb edema. VITAL SIGNS: Her heart rate was 125, blood pressure 115/74, temperature was 102.9, respiratory rate was 27, and oxygen saturation was 93% on room air. HEAD, EYES, EARS, NOSE, AND THROAT: Showed normocephalic and atraumatic. NECK: Supple. HEART: Showed normal first and second heart sounds. No gallop or murmur. CHEST: Clear to auscultation. No crepitation or rhonchi. ABDOMEN: Distended, soft, and nontender. NEUROLOGIC: She was sleepy, but arousable. All her cranial nerves intact. She moves her extremities without difficulty, although she is mostly bed bound. LABORATORY AND DIAGNOSTIC DATA: Her lab work prior to admission to the ICU showed that her white cell count was 4100, hemoglobin 11.9, hematocrit 36.6, MCV 99, and platelet count of 124,000 with normal manual differential. Her chemistry showed a serum sodium of 143, potassium is 4.1, chloride 107, bicarbonate 26, anion gap of 10, BUN 38, creatinine 0.8, and estimated GFR was 72 mL per minute. Her glucose was 202 and calcium was 9.5. Lactic acid was 3.3. Her total bilirubin, AST, ALT, and alkaline phosphatase were normal. Lactate dehydrogenase was 149. Total protein was 6.3 and albumin 2.8. Serum lipase was 36. Her urinalysis showed the urine was yellow and clear with a pH of 8.5 and specific gravity of 1.020. There was large amount of protein. The urine was negative for glucose, trace of ketones, trace of blood, and negative for nitrite. There were 11-20 wbc's, moderate amount, and few bacteria. Her toxic screen was unremarkable and her CT scan of the chest, abdomen, and pelvis showed that the patient has a medial deviation of the left true cord, which could be associated with vocal cord palsy. Thyroid gland is normal in appearance. Precarinal lymph node measures 7 mm by short axis. Heart size within normal limits. Small hiatal hernia. Left chest wall ____ is noted as the single lead extending cranially. Evaluation of the hilar lymphadenopathy is limited by lack of intravenous contrast ____ and infrahilar lymph node, measuring 14 cm by short axis. Patchy ground glass opacities are noted throughout the right upper lobe and lower lobe. There is nodular consolidative change at the right lung base, measuring 2.9 x 2.8 cm. Evaluation of the abdominal solid organs is limited by lack of intravenous contrast. Evaluation is limited by positioning, the arm down. Liver, spleen, bilateral adrenal glands, and pancreas are normal in appearance. Abdominal aorta is normal in course and caliber. There are no pathologically enlarged lymph nodes in the abdomen or pelvis. There is no free fluid or free intraperitoneal air. Small and large bowel are normal in caliber. No evidence of a bowel obstruction or inflammation. Appendix is normal in appearance. No pericecal inflammatory change is identified. The kidneys are relatively symmetric in appearance. There is no suspicious renal mass within the limitation of the noncontrast examination. There is no hydronephrosis. There are no calculi within the kidneys, ureters, or the urinary bladder. Licona catheter decompresses the urinary bladder, a small amount of gas within the urinary bladder is likely iatrogenic. Left total hip arthroplasty identified with streak artifact. No suspicious osseous abnormalities identified. Remote healed right lateral 8th rib fracture identified. Therefore, the patient was admitted with sepsis, right lower lobe pneumonia, urinary tract infection, and lactic acidosis. She was started on IV fluid and IV antibiotic in the form of linezolid as well as piperacillin and tazobactam. As she is allergic to VANCOMYCIN, we will start her also on Keppra IV. We will continue all other medication once her altered mental status improves. JOHNIE LANDERS MD DR: DORIAN/eboni JOB#: [id number] / [id number]
[2019-02-02] MEDS ORDERED: CEFDINIR 300 MG CAPSULE PO SCH (21:00)
[2019-02-02] MEDS ORDERED: MIRTAZAPINE 15 MG TABLET PO SCH (21:00)
[2019-02-02] MEDS: NYSTATIN TOPICAL POWDER 15GM BOTTLE. TP SCH (21:00)
[2019-02-02] MEDS: DIVALPROEX 125 MG CAP.SPRINK PO SCH (21:00)
[2019-02-02] MEDS ORDERED: DIVALPROEX ER 250 MG TAB.ER.24H. PO SCH (21:00)
[2019-02-02] MEDS ORDERED: traMADol 50 MG TABLET PO SCH (21:00)
--- NOTE | 2019-02-02 21:57 | PDOC ---
Exam Note: David Note: Please also refer to the separate dictated note~for this date of service dictated separately.~Patient seen individually. Discussed the patient with Nursing staff reviewed the chart.~Reviewed interim history and current functioning. Reviewed vital signs,~Labs/ Radiology~and current medications noted below. Continue current treatment with the changes noted in the dictated addendum note Assessment: Vital Signs/I&O: Vital Signs Date Time Temp Pulse Resp B/P (MAP) Pulse Ox O2 Delivery O2 Flow Rate FiO2 02/02/19 20:00 72 20 96/41 (59) 92 Room Air 02/02/19 20:00 3.0 02/02/19 17:30 99.9 I & O 02/01/19 02/01/19 02/02/19 15:00 23:00 07:00 Intake Total 50 ml Balance 50 ml Current Medications: Meds: Current Medications Medications (Trade) Dose Ordered Sig/Antoni Route PRN Reason Start Time Stop Time Status Last Admin Dose Admin Olanzapine (ZyPREXA ZYDIS) 2.5 mg PRN Q2HR PRN PO ANXIETY / AGITATION 02/01/19 22:00 02/02/19 19:45 Levetiracetam 500 mg/Sodium Chloride 100 ml @ 400 mls/hr Q12HR IV 02/01/19 22:30 02/02/19 21:19 Atorvastatin Calcium (Lipitor) 10 mg QHS PO 02/02/19 21:00 02/02/19 19:45 Cetirizine HCl (ZyrTEC) 10 mg QHS PO 02/02/19 21:00 02/02/19 19:47 Felbamate (Felbatol) 400 mg BID PO 02/02/19 21:00 02/02/19 19:46 Magnesium Oxide (Magnesium Oxide) 400 mg BID PO 02/02/19 21:00 02/02/19 19:46 Potassium Chloride (Klor-Con) 20 meq BID PO 02/02/19 21:00 02/02/19 19:46 Quetiapine Fumarate (SEROquel) 25 mg BID PO 02/02/19 21:00 02/02/19 19:45 Trazodone HCl (Desyrel) 50 mg PRN QHS PRN PO INSOMNIA, MAY REPEAT X1 02/02/19 17:30 02/02/19 19:46 I have reviewed the current psychotropics carefully including drug interactions. Risk benefit ratio favors no change other than as noted in my dictated progress note. Diagnosis: Problems: (1) Severe major depression with psychotic features (2) Adjustment disorder with depressed mood (3) Bipolar affective, mixed (4) Impulse control disorder (5) Dementia, vascular, with delusions (6) Dementia, vascular, with depression (7) Bipolar affective, mixed, sev w/ psych HARVEY QUIJANO MD Feb 02, 2019 21:57
--- NOTE | 2019-02-02 23:36 | PN ---
DATE: 02/02/2019 SUBJECTIVE: The patient is lying flat in bed, in no apparent distress. She is uncooperative, refusing to give her oxygen saturation, although desaturates down to 82% without oxygen, refusing to eat or drink, yelling, stating that she wants to get better; however, she is uncooperative. PHYSICAL EXAMINATION: GENERAL: When I saw her this afternoon, she looked pale, but no jaundice, cyanosis or thyromegaly. No jugular venous distention. No limb edema. VITAL SIGNS: Her heart rate was 74, blood pressure was 113/68, temperature was 98, respiratory rate 20, and oxygen saturation was 98% on 3 liters of oxygen. HEAD, EYES, EARS, NOSE AND THROAT: Showed normocephalic, atraumatic. NECK: Supple. HEART: Showed normal first and second heart sounds. No gallop, rub or murmur. CHEST: Clear to auscultation. No crepitation or rhonchi. ABDOMEN: Distended, soft, nontender. NEUROLOGIC: She was awake, alert, responding appropriately. All cranial nerves intact. She moves extremities without difficulty, although she is mostly bed bound. Her intake over the last 24 and output are incompletely recorded. LABORATORY DATA: Her blood gases showed a pH of 7.42, pCO2 of 40, pO2 of 89, bicarbonate 25, oxygen saturation was 95% on FiO2 of 32%. Her lactic acid is down to 1.6. ASSESSMENT: 1. Altered mental status, improving. 2. Right lower lobe pneumonia. 3. Urinary tract infection. 4. Sepsis with lactic acidosis. She has multiple other medical problems, including hypertension, hyperlipidemia, gastroesophageal reflux disease, and dementia together with seizure disorder. JOHNIE LANDERS MD DR: DORIAN/eboni JOB#: [id number] / [id number]
[2019-02-02] MEDS: ACETAMINOPHEN 325 MG TABLET PO PRN (23:55)
[2019-02-03] VITALS (16 sets, daily range): BP systolic 92–155; BP diastolic 46–98
[2019-02-03] MEDS: IV NORMAL SALINE 1,000ML 1,000 ML IV SCH ×2 (04:30→11:48)
[2019-02-03] MEDS: PIPERACILLIN/TAZOBACTAM 3.375 GM in IV NORMAL SALINE 50ML 50 ML IV SCH ×3 (06:29→22:00)
[2019-02-03] MEDS: LEVOTHYROXINE 75 MCG TABLET PO SCH ×2 (06:29→08:08)
[2019-02-03] MEDS ORDERED: busPIRone 15 MG TABLET. PO SCH (08:00)
[2019-02-03] MEDS: LIDOCAINE (700MG/PATCH) PATCH. TP SCH (08:05)
[2019-02-03] MEDS: FELBAMATE 400 MG TABLET PO SCH ×2 (08:05→21:31)
[2019-02-03] MEDS: QUEtiapine 25 MG TABLET. PO SCH ×2 (08:05→21:26)
[2019-02-03] MEDS: PANTOPRAZOLE 40 MG TABLET. PO SCH (08:05)
[2019-02-03] MEDS: DIVALPROEX 125 MG CAP.SPRINK PO SCH ×2 (08:06→21:26)
[2019-02-03] MEDS: POTASSIUM CHLORIDE 20 MEQ TABLET.ER. PO SCH ×2 (08:06→21:30)
[2019-02-03] MEDS: MAGNESIUM OXIDE 400 MG TABLET PO SCH ×3 (08:06→21:26)
[2019-02-03] MEDS: CHOLECALCIFEROL (VITAMIN D3) 1,000 UNIT TABLET PO SCH (08:06)
[2019-02-03] MEDS: CALCIUM CARBONATE 500 MG TABLET PO SCH ×2 (08:06→15:26)
[2019-02-03] MEDS: FERROUS SULFATE 325 MG TABLET. PO SCH ×2 (08:06→15:27)
[2019-02-03] MEDS ORDERED: SERTRALINE 50 MG TABLET. PO SCH (09:00)
[2019-02-03] MEDS: NYSTATIN TOPICAL POWDER 15GM BOTTLE. TP SCH ×2 (09:00→21:00)
[2019-02-03 11:24] LABS: HEMATOCRIT 28.8 % (36.0-47.0); HEMOGLOBIN 9.6 g/dL (12.0-15.5); RED BLOOD COUNT 2.99 x10^6/uL (3.50-5.40); RED CELL DISTRIBUTION WIDTH 13.5 % (11.5-14.5); WHITE BLOOD COUNT 3.5 x10^3/uL (4.0-11.0)
[2019-02-03 11:50] LABS: ALBUMIN 1.8 g/dL (3.4-5.0); ALBUMIN/GLOBULIN RATIO 0.5 (1.0-1.7); CALCIUM 7.8 mg/dL (8.5-10.1); CREATININE 0.5 mg/dL (0.6-1.0); GFR 123.4; POTASSIUM 3.4 mmol/L (3.5-5.1); TOTAL BILIRUBIN 0.1 mg/dL (0.2-1.0); TOTAL PROTEIN 5.2 g/dL (6.4-8.2)
--- NOTE | 2019-02-03 12:58 | PN ---
DATE: 02/03/2019 SUBJECTIVE: The patient is resting flat, sleeping comfortably. She is very uncooperative, does not eat or drink, does not even answer questions, covering her head; however, hemodynamically she is afebrile. Her white cell count is normal, so far her blood cultures are negative. Her urine culture showed growth of Escherichia coli from her urine on the 01/28/2019 and showed the growth of more than 100,000 colony forming units per mL of gram-negative rods identified as Escherichia coli sensitive to piperacillin and tazobactam. PHYSICAL EXAMINATION: GENERAL: When I examined her this morning, she was resting slightly propped up in bed, in no apparent respiratory distress, pale, but no jaundice, cyanosis or thyromegaly. No jugular venous distension. No lower limb edema. VITAL SIGNS: Her heart rate was 73, blood pressure was 112/59, temperature was 97.8, respiratory rate was 16 and oxygen saturation was 94% on 3 liters of oxygen. HEAD, EYES, EARS, NOSE AND THROAT: Showed normocephalic, atraumatic. NECK: Supple. HEART: Showed normal first and second heart sounds. No gallop or murmur. CHEST: Clear to auscultation. No crepitation or rhonchi. ABDOMEN: Distended, soft, nontender. NEUROLOGIC: She is sleepy, but arousable. All cranial nerves intact. She moves extremities without difficulty, although she is mostly bed bound. Her intake over the last 24 hours was 3430, output was 900. LABORATORY DATA: As of this morning, her white cell count was 3500, hemoglobin 9.6, hematocrit 28.8, MCV 96 and platelet count of 135,000. Her chemistry showed a serum sodium 147, potassium 3.4, chloride 115, bicarbonate 25, anion gap of 7, BUN 13, creatinine 0.5, estimated GFR was 123 mL per minute. Her glucose was 93. Lactic acid was 1.6, calcium was 7.8. Total bilirubin, AST, ALT, alkaline phosphatase were normal. Total protein was 5.2, albumin was 1.8. ASSESSMENT: 1. Sepsis, multifactorial closed by; A. Right lower lobe pneumonia. B. Urinary tract infection. 3. Lactic acidosis due to sepsis. 4. Altered mental status, improving. 5. Hypertension. 6. Hyperlipidemia. 7. Gastroesophageal reflux disease. 8. Seizure disorder. 9. Dementia. 10. She has hypernatremia and hypokalemia. PLAN: My plan is to continue with IV antibiotic. I will change her IV fluid to D5 with 20 mEq of potassium chloride. JOHNIE LANDERS MD DR: DORIAN/eboni JOB#: [id number] / [id number]
[2019-02-03] MEDS: POTASSIUM CL 20MEQ IN D5W 1,000 ML IV SCH (15:32)
--- NOTE | 2019-02-03 18:15 | PN ---
DATE: 02/02/2019 PSYCHIATRIC PROGRESS NOTE This late entry 02/02/2019 covers elements not covered in my initial note. SUBJECTIVE: I met with the patient in ICU, bed 6 evening of 02/02/2019. Discussed with nursing staff, reviewed the chart. I have been asked to consult the patient from a psychiatric standpoint after she was transferred to the ICU from our unit on account of her urosepsis, worsening confusion, agitation. She was placed on Zyvox and multiple psychotropics discontinued as a consequence of drug interactions. She is more agitated with marked mood lability, psychotic, paranoid, anxious, despite gradual improvement in her urosepsis. I have been asked to follow her for psychiatric recommendations. REVIEW OF SYSTEMS: Ambulation impaired. She is lying in bed, wanting to be put flat in her bed. Nursing staff intervening. No CV, , pulmonary, eye system symptoms on review. She has vague somatic symptoms. MENTAL STATUS EXAM: Oriented to herself and situation. Speech coherent, rapid, loud, yelling at times as I was in the ICU. Abstraction fair, computation impaired, language function intact. Mood and affect remains labile. LABORATORY DATA: Reviewed. IMPRESSION: Schizoaffective disorder, bipolar type, mixed with psychotic features, mild cognitive impairment; anxiety disorder, unspecified; impulse control disorder, unspecified. PLAN: We will continue Zyprexa p.r.nJade Burgos has been held Tyron. Change Depakote ER 750 mg at bedtime to Depakote 250 a.m., 500 at bedtime. Check CBC, CMP, valproic acid level in 3 days. Rest unchanged for now. I will follow the patient from a psychiatric standpoint. Dr. Acekrman, thank you for the opportunity to participate in your patient's care. MAN Luis QUIJANO MD DR: LOYD/eboni JOB#: [id number] / [id number]
[2019-02-03] MEDS: OLANZapine IM 10 MG VIAL. IM PRN ×2 (19:46→23:56)
[2019-02-03] MEDS: CETIRIZINE HCL 10 MG TABLET PO SCH (21:00)
[2019-02-03] MEDS: ATORVASTATIN CALCIUM 10 MG TABLET. PO SCH ×2 (21:00→21:26)
[2019-02-03] MEDS: LACTOBACILLUS RHAMNOSUS GG 1 CAPSULE. PO SCH (21:00)
[2019-02-03] MEDS: traZODone 50 MG TABLET. PO PRN ×2 (21:26→23:55)
--- NOTE | 2019-02-03 21:32 | PDOC ---
Exam Note: David Note: Please also refer to the separate dictated note~for this date of service dictated separately.~Patient seen individually. Discussed the patient with Nursing staff reviewed the chart.~Reviewed interim history and current functioning. Reviewed vital signs,~Labs/ Radiology~and current medications noted below. Continue current treatment with the changes noted in the dictated addendum note Assessment: Vital Signs/I&O: Vital Signs Date Time Temp Pulse Resp B/P (MAP) Pulse Ox O2 Delivery O2 Flow Rate FiO2 02/03/19 20:04 Nasal Cannula 3.0 02/03/19 20:00 97.8 85 154/75 (101) 96 02/03/19 18:02 22 I & O 02/02/19 02/02/19 02/03/19 15:00 23:00 07:00 Intake Total 1400 ml 600 ml 1380 ml Output Total 300 ml 600 ml Balance 1100 ml 600 ml 780 ml Labs: Laboratory Tests Test 02/03/19 11:16 White Blood Count 3.5 x10^3/uL (4.0-11.0) L Red Blood Count 2.99 x10^6/uL (3.50-5.40) L Hemoglobin 9.6 g/dL (12.0-15.5) L Hematocrit 28.8 % (36.0-47.0) L Mean Corpuscular Volume 96 fL (79-100) Mean Corpuscular Hemoglobin 32 pg (25-35) Mean Corpuscular Hemoglobin Concent 33 g/dL (31-37) Red Cell Distribution Width 13.5 % (11.5-14.5) Platelet Count 135 x10^3/uL (140-400) L Sodium Level 147 mmol/L (136-145) H Potassium Level 3.4 mmol/L (3.5-5.1) L Chloride Level 115 mmol/L (98-107) H Carbon Dioxide Level 25 mmol/L (21-32) Anion Gap 7 (6-14) Blood Urea Nitrogen 13 mg/dL (7-20) Creatinine 0.5 mg/dL (0.6-1.0) L Estimated GFR (Cockcroft-Gault) 123.4 BUN/Creatinine Ratio 26 (6-20) H Glucose Level 93 mg/dL (70-99) Calcium Level 7.8 mg/dL (8.5-10.1) L Total Bilirubin 0.1 mg/dL (0.2-1.0) L Aspartate Amino Transferase (AST) 30 U/L (15-37) Alanine Aminotransferase (ALT) 25 U/L (14-59) Alkaline Phosphatase 62 U/L (46-116) Total Protein 5.2 g/dL (6.4-8.2) L Albumin 1.8 g/dL (3.4-5.0) L Albumin/Globulin Ratio 0.5 (1.0-1.7) L Current Medications: Meds: Current Medications Medications (Trade) Dose Ordered Sig/Antoni Route PRN Reason Start Time Stop Time Status Last Admin Dose Admin Calcium Carbonate/ Glycine (Oscal) 500 mg BIDWMEALS PO 02/03/19 08:00 02/03/19 08:06 Vitamin D (Vitamin D3) 1,000 unit DAILY PO 02/03/19 09:00 02/03/19 08:06 Levothyroxine Sodium (Synthroid) 75 mcg DAILY06 PO 02/03/19 06:00 02/03/19 08:08 Lidocaine (Lidoderm) 1 patch DAILY TP 02/03/19 09:00 02/03/19 08:05 Pantoprazole Sodium (Protonix) 40 mg DAILYAC PO 02/03/19 07:30 02/03/19 08:05 Divalproex Sodium (Depakote Sprinkles) 250 mg DAILY PO 02/03/19 09:00 02/03/19 08:06 Potassium Chloride/Dextrose 1,000 ml @ 100 mls/hr Q10H IV 02/03/19 12:30 02/03/19 15:32 Levetiracetam (Keppra Oral Soln) 500 mg BID PO 02/03/19 21:00 02/03/19 21:00 I have reviewed the current psychotropics carefully including drug interactions. Risk benefit ratio favors no change other than as noted in my dictated progress note. Diagnosis: Problems: (1) Severe major depression with psychotic features (2) Adjustment disorder with depressed mood (3) Bipolar affective, mixed (4) Impulse control disorder (5) Dementia, vascular, with delusions (6) Dementia, vascular, with depression HARVEY QUIJANO MD Feb 03, 2019 21:32
[2019-02-04] VITALS (7 sets, daily range): BP systolic 118–146; BP diastolic 60–94
[2019-02-04] MEDS: PIPERACILLIN/TAZOBACTAM 3.375 GM in IV NORMAL SALINE 50ML 50 ML IV SCH ×3 (02:30→14:34)
[2019-02-04] MEDS: ACETAMINOPHEN 325 MG TABLET PO PRN (05:23)
[2019-02-04] MEDS: LEVOTHYROXINE 75 MCG TABLET PO SCH (05:23)
[2019-02-04 06:32] LABS: CALCIUM 8.5 mg/dL (8.5-10.1); CREATININE 0.7 mg/dL (0.6-1.0); GFR 83.7; POTASSIUM 3.3 mmol/L (3.5-5.1)
[2019-02-04] MEDS: MAGNESIUM OXIDE 400 MG TABLET PO SCH (07:58)
[2019-02-04] MEDS: FERROUS SULFATE 325 MG TABLET. PO SCH ×2 (07:58→17:51)
[2019-02-04] MEDS: LACTOBACILLUS RHAMNOSUS GG 1 CAPSULE. PO SCH (07:58)
[2019-02-04] MEDS: QUEtiapine 25 MG TABLET. PO SCH (07:59)
[2019-02-04] MEDS: CALCIUM CARBONATE 500 MG TABLET PO SCH ×2 (07:59→17:00)
[2019-02-04] MEDS: PANTOPRAZOLE 40 MG TABLET. PO SCH (07:59)
[2019-02-04] MEDS: POTASSIUM CHLORIDE 20 MEQ TABLET.ER. PO SCH (07:59)
[2019-02-04] MEDS: CHOLECALCIFEROL (VITAMIN D3) 1,000 UNIT TABLET PO SCH (07:59)
[2019-02-04] MEDS: FELBAMATE 400 MG TABLET PO SCH (07:59)
[2019-02-04] MEDS: DIVALPROEX 125 MG CAP.SPRINK PO SCH (07:59)
[2019-02-04] MEDS: LIDOCAINE (700MG/PATCH) PATCH. TP SCH (08:00)
[2019-02-04] MEDS: POTASSIUM CL 20MEQ IN D5W 1,000 ML IV SCH ×3 (08:07→17:08)
[2019-02-04] MEDS: NYSTATIN TOPICAL POWDER 15GM BOTTLE. TP SCH (09:00)
[2019-02-04] MEDS ORDERED: AMOX1TAB61 PO (17:58)
--- NOTE | 2019-02-05 00:02 | PN ---
DATE: 02/03/2019 PSYCHIATRIC PROGRESS NOTE This late entry 02/03/2019 covers elements not covered in my initial note. SUBJECTIVE: I met with the patient evening of 02/03/2019 in ICU bed 6. Per nursing report, the patient remains somewhat anxious, restless, pulled off her oxygen can be loud, disruptive at times. Some of her psychotropics have been discontinued and once she is medically stable from the urosepsis, we may have to have her back on the [facility] for psychiatric stabilization. REVIEW OF SYSTEMS: Impaired ambulation, shortness of breath. No CV, GI, system symptoms on review. Reliability poor. MENTAL STATUS EXAM: Oriented to herself and situation. Speech can be high pitched, abstraction fair, computation impaired, language function intact. Mood and affect remains anxious, labile. LABORATORY DATA: Reviewed. IMPRESSION: Bipolar disorder, mixed with psychotic features; anxiety disorder, unspecified; mild cognitive impairment. PLAN: No change from initial note. HARVEY QUIJANO MD DR: LOYD/eboni JOB#: [id number] / [id number]
--- NOTE | 2019-02-05 02:46 | PN ---
DATE: SUBJECTIVE: The patient is resting slightly propped up in bed, sleeping comfortably. Apparently, she had been extremely agitated, restless, and combative last night; however, she has been asleep throughout the day. According to the nursing staff, she was able to stand and use the bedside commode. She apparently drank Ensure and has had multiple bowel movements. PHYSICAL EXAMINATION: GENERAL: When I examined her, she continued to be uncooperative, mostly angry. She was pale. No jaundice, cyanosis, or thyromegaly. No jugular venous distension. No limb edema. VITAL SIGNS: Her heart rate was 84, blood pressure was 124/60, temperature was 97.6, respiratory rate was 18, and oxygen saturation was 90% on room air. HEAD, EYES, EARS, NOSE, AND THROAT: Showed normocephalic and atraumatic. NECK: Supple. HEART: Showed normal first and second heart sounds. No gallop or murmur. CHEST: Clear to auscultation. No crepitation or rhonchi. ABDOMEN: Nondistended, soft, nontender. NEUROLOGIC: She was sleepy, but arousable. All the cranial nerves are intact. She moves extremities without difficulty. She is able even to stand and use the bedside commode. Her intake over the last 24 hours was 3430 and output was 900. LABORATORY DATA: Her lab work this morning showed a serum sodium 141, potassium 3.3, chloride 106, bicarbonate 25, anion gap of 10, BUN 5, and creatinine 0.7. Estimated GFR was 83 mL per minute. Her glucose is 130. Calcium was 8.5. The white cell count was 3500, hemoglobin 9.6, hematocrit 28.8, MCV 96, and platelet count of 135,000. Her urinalysis showed the urine was yellow and clear with a pH of 8.5. There was a trace of leukocyte esterase with 11-20 wbc's and a few bacteria. Her chest x-ray showed that she has 2.9 x 2.8 cm nodular mass in the right lower lobe represents surrounded pneumonia versus primary lung malignancy. Her urine culture so far showed no growth and her blood culture so far showed no growth after 2 days. The patient is stable and afebrile and her white cell count is normal. PLAN: Probably, we will screen her to see if she qualifies to go [facility]. JOHNIE LANDERS MD DR: Daxa JOB#: [id number] / [id number]
== END 2019-02-04 18:25 | DRG 871 ==
LOC: ICU 17:03
PROVIDERS: ADMIT Internal Medicine; ATTEND Internal Medicine
DX: A41.9 Sepsis, unspecified organism (principal); J18.9 Pneumonia, unspecified organism; N39.0 Urinary tract infection, site not specified; F31.64 Bipolar disorder, current episode mixed, severe, with psychotic features; E87.0 Hyperosmolality and hypernatremia; E87.2 Acidosis; E86.0 Dehydration; F63.9 Impulse disorder, unspecified; E78.5 Hyperlipidemia, unspecified; E03.9 Hypothyroidism, unspecified; G40.909 Epilepsy, unspecified, not intractable, without status epilepticus; Z88.1 Allergy status to other antibiotic agents; Z88.5 Allergy status to narcotic agent; F01.50 Vascular dementia, unspecified severity, without behavioral disturbance, psychotic disturbance, mood disturbance, and anxiety; K21.9 Gastro-esophageal reflux disease without esophagitis; I10 Essential (primary) hypertension; E87.6 Hypokalemia; F41.9 Anxiety disorder, unspecified; F43.21 Adjustment disorder with depressed mood
CPT/HCPCS: 36415; 71250; 74176; 80048; 80053; 80177; 81001; 82803; 83605; 85027; 87040; 87086; J1953; J2020; J2543; J3490; J7042; J7030

== ENCOUNTER 2019-02-04 18:20 | Inpatient (IN) | payer MEDICARE, OTHER ==
[~2019-02-04] VITALS: Ht 160 cm; Wt 75.5 kg
[~2019-02-04 18:20] MED LIST changes: +AMOX1TAB61 PO
--- NOTE | 2019-02-04 18:26 | NUR ---
Admission Note with Justification for Admission to [facility] Patient admitted to [facility] for protective oversight for emergency stabilization of acute psychiatric crisis. Pt admitted from: [place] ICU where she had been for urinary sepsis since 02/01 Mode of arrival: wheel chair to [facility] from ICU Accompanied By: [facility] Staff-LION Jhaveri Precipitating behaviors that initiated intake and admission: yelling, name calling, refusing medications, uncooperative, rude to staff at [facility] and continued to be rude while inpatient in ICU. Description of failure of out patient attempts at stabilization in previous setting list behavior and medication trials: Medication changes, on [facility] since 01/13/19. Behaviors and assessment findings upon admission: Patient medically cleared by Dr. Ackerman to return to [facility]. Patient yelling "you're dumb" every time nurse asked her an assessment question. She is uncooperative and agitated. She is yelling in day room during vital signs and ramming the door with her wheelchair. Vital signs WNL to include 93% oxygen saturation. Patient has bandage on L. FA where IV was removed. Patient on Augmentin BID for 7 days for UTI/Pneumonia. Patient put into the quiet hallway for agitating peers in day room within 15 minutes of arrival. Plan: Admit for protective oversight for adjustment and stabilization of medications, behaviors and mood. Intense treatment regimen including groups, medication adjustments, therapy, consistent regimen for ADL's, self care, and sleep hygiene. Daily monitoring by Inpatient staff, Psychiatry, and Medical Physician.
--- NOTE | 2019-02-04 18:33 | NUR ---
Patient yelling and screaming in day room. Calling staff and peers "dumb" and "stupid". Patient refused verbal redirection and was assisted into the west hallway. Patient stating she must lay down in bed, nurse told patient she must stay up until she is compliant with night medications. Patient continues to yell and dali door with her wheelchair while in [facility].
[2019-02-04] MEDS ORDERED: MINERAL OIL/PETROLATUM TOPICAL CREAM 113GM JAR. TP PRN (18:45)
[2019-02-04] MEDS ORDERED: MAG HYDROX/AL HYDROX/SIMETH 30 ML ORAL.SUSP PO PRN (18:45)
[2019-02-04] MEDS ORDERED: traZODone 50 MG TABLET. PO PRN (18:45)
[2019-02-04] MEDS ORDERED: BISACODYL 10 MG SUPP.RECT RC PRN (18:45)
[2019-02-04] MEDS ORDERED: guaiFENesin 300 MG/15 ML LIQUID PO PRN (18:45)
[2019-02-04] MEDS ORDERED: IBUPROFEN 400 MG TABLET. PO PRN (18:45)
[2019-02-04 18:47] VITALS: BP 95/66
[2019-02-04] MEDS ORDERED: METHYL SALICYLATE/MENTHOL TOPICAL OINTMENT 57GM TUBE. TP PRN (19:15)
[2019-02-04] MEDS ORDERED: MAGNESIUM HYDROXIDE 2,400 MG/30 ML ORAL.SUSP. PO PRN (19:15)
[2019-02-04] MEDS ORDERED: ONDANSETRON ODT 4 MG TAB.RAPDIS PO PRN (19:15)
[2019-02-04] MEDS: traMADol 50 MG TABLET PO SCH (19:53)
[2019-02-04] MEDS: POTASSIUM CHLORIDE 20 MEQ TABLET.ER. PO SCH (21:40)
[2019-02-04] MEDS: CETIRIZINE HCL 10 MG TABLET PO SCH (21:42)
[2019-02-04] MEDS: LACTOBACILLUS RHAMNOSUS GG 1 CAPSULE. PO SCH (21:42)
[2019-02-04] MEDS: MIRTAZAPINE 15 MG TABLET PO SCH (21:42)
[2019-02-04] MEDS: DIVALPROEX ER 250 MG TAB.ER.24H. PO SCH (21:42)
[2019-02-04] MEDS: LACOSAMIDE 50 MG TABLET PO SCH (21:42)
[2019-02-04] MEDS: levETIRAcetam 500 MG TABLET PO SCH (21:43)
[2019-02-04] MEDS: AMOXICILLIN/K CLAV 875/125MG TABLET. PO SCH (21:43)
[2019-02-04] MEDS: PHENobarbital 32.4 MG TABLET. PO SCH (21:43)
[2019-02-04] MEDS: ATORVASTATIN CALCIUM 10 MG TABLET. PO SCH (21:43)
[2019-02-04] MEDS: QUEtiapine 25 MG TABLET. PO SCH (21:43)
[2019-02-04] MEDS: MAGNESIUM OXIDE 400 MG TABLET PO SCH (21:45)
[2019-02-04] MEDS: FELBAMATE 400 MG TABLET PO SCH (21:47)
[2019-02-04] MEDS: NYSTATIN TOPICAL POWDER 15GM BOTTLE. TP SCH (21:47)
--- NOTE | 2019-02-04 21:47 | PDOC ---
Exam Note: David Note: Please also refer to the separate dictated note~for this date of service dictated separately. Discussed the patient with Nursing staff reviewed the chart.~Reviewed interim history and current functioning. Reviewed vital signs,~Labs/ Radiology~and current medications noted below. Continue current treatment with the changes noted in the dictated addendum note Assessment: Vital Signs/I&O: Vital Signs Date Time Temp Pulse Resp B/P (MAP) Pulse Ox O2 Delivery O2 Flow Rate FiO2 02/04/19 21:39 93 02/04/19 19:53 18 Room Air 02/04/19 18:47 97.2 77 95/66 (76) Current Medications: Meds: Current Medications Medications (Trade) Dose Ordered Sig/Antoni Route PRN Reason Start Time Stop Time Status Last Admin Dose Admin Tramadol HCl (Ultram) 50 mg BID PO 02/04/19 21:00 02/04/19 19:53 Olanzapine (ZyPREXA ZYDIS) 2.5 mg PRN Q2HR PRN PO ANXIETY / AGITATION 02/04/19 18:45 02/04/19 19:54 I have reviewed the current psychotropics carefully including drug interactions. Risk benefit ratio favors no change other than as noted in my dictated progress note. Diagnosis: Problems: (1) Severe major depression with psychotic features (2) Adjustment disorder with depressed mood (3) Bipolar affective, mixed (4) Impulse control disorder (5) Dementia, vascular, with delusions (6) Dementia, vascular, with depression (7) Bipolar affective, mixed, sev w/ psych HARVEY QUIJANO MD Feb 04, 2019 21:47
--- NOTE | 2019-02-05 01:43 | NUR ---
Nursing Note Pt yelling in hallway, "You are stupid, and I don't have any pajamas." Took her meds willingly to go to bed, was angry about being from the rest of the patients. Cooperative with assessment but angry and difficult with all interactions, and demanding.
[2019-02-05 06:24] VITALS: BP 116/73
[2019-02-05] MEDS: LEVOTHYROXINE 50 MCG TABLET PO SCH (06:30)
[2019-02-05 06:51] LABS: BASO % 1 % (0-3); EOS # 0.5 x10^3/uL (0.0-0.7); EOS % 9 % (0-3); HEMATOCRIT 31.4 % (36.0-47.0); HEMOGLOBIN 10.6 g/dL (12.0-15.5); LYMPH # 1.8 x10^3/uL (1.0-4.8); LYMPH % 31 % (24-48); MEAN CORPUSCULAR HEMOGLOBIN 32 pg (25-35); MEAN CORPUSCULAR HGB CONC 34 g/dL (31-37); MEAN CORPUSCULAR VOLUME 95 fL (79-100); MONO % 17 % (0-9); NEUT # 2.5 x10^3uL (1.8-7.7); NEUT % 43 % (31-73); PLATELET COUNT 214 x10^3/uL (140-400); RED CELL DISTRIBUTION WIDTH 13.5 % (11.5-14.5); WHITE BLOOD COUNT 5.8 x10^3/uL (4.0-11.0)
[2019-02-05 07:01] LABS: ALBUMIN 2.1 g/dL (3.4-5.0); ALBUMIN/GLOBULIN RATIO 0.6 (1.0-1.7); CALCIUM 8.3 mg/dL (8.5-10.1); CREATININE 0.6 mg/dL (0.6-1.0); POTASSIUM 3.7 mmol/L (3.5-5.1); TOTAL BILIRUBIN 0.2 mg/dL (0.2-1.0); TOTAL PROTEIN 5.8 g/dL (6.4-8.2)
[2019-02-05 07:06] LABS: PHENY < 0.5 mcg/mL (10.0-20.0); VAL ACID 39 mcg/mL (50-100)
[2019-02-05 07:27] LABS: % ATYL 1 % (0-0); % BANDS 6 % (0-9); % BASOS 2 % (0-3); % EOS 10 % (0-5); % LYMPHS 35 % (24-48); % MONOS 11 % (0-10); % SEGS 35 % (35-66); PLT ESTIMATE ADEQUATE (ADEQUATE)
[2019-02-05] MEDS ORDERED: SERTRALINE 50 MG TABLET. PO SCH (09:00)
[2019-02-05] MEDS: LACOSAMIDE 50 MG TABLET PO SCH ×2 (09:01→20:30)
[2019-02-05] MEDS: QUEtiapine 25 MG TABLET. PO SCH ×2 (09:01→20:31)
[2019-02-05] MEDS: LACTOBACILLUS RHAMNOSUS GG 1 CAPSULE. PO SCH ×2 (09:01→20:29)
[2019-02-05] MEDS: busPIRone 15 MG TABLET. PO SCH ×2 (09:01→17:19)
[2019-02-05] MEDS: NYSTATIN TOPICAL POWDER 15GM BOTTLE. TP SCH ×2 (09:01→20:32)
[2019-02-05] MEDS: AMOXICILLIN/K CLAV 875/125MG TABLET. PO SCH ×2 (09:01→20:29)
[2019-02-05] MEDS: CHOLECALCIFEROL (VITAMIN D3) 1,000 UNIT TABLET PO SCH (09:02)
[2019-02-05] MEDS: FERROUS SULFATE 325 MG TABLET. PO SCH ×2 (09:02→17:20)
[2019-02-05] MEDS: POTASSIUM CHLORIDE 20 MEQ TABLET.ER. PO SCH ×2 (09:02→20:29)
[2019-02-05] MEDS: traMADol 50 MG TABLET PO SCH ×2 (09:02→20:30)
[2019-02-05] MEDS: PHENobarbital 32.4 MG TABLET. PO SCH ×2 (09:03→20:29)
[2019-02-05] MEDS: MAGNESIUM OXIDE 400 MG TABLET PO SCH ×3 (09:03→20:30)
[2019-02-05] MEDS: CALCIUM CARBONATE 500 MG TABLET PO SCH ×2 (09:03→17:19)
[2019-02-05] MEDS: levETIRAcetam 500 MG TABLET PO SCH ×2 (09:03→20:30)
[2019-02-05] MEDS: LIDOCAINE (700MG/PATCH) PATCH. TP SCH (09:13)
--- NOTE | 2019-02-05 09:16 | NUR ---
Activity Therapy Assessment Pt. discharged to ICU on 02/01 and has now returned to [facility]. Pt. presents similar behaviors as before discharge: yelling out, insulting other patients and staff, resistant to redirection, and generally irritable. See below for assessment. Repeat goal from initial assessment. ACTIVITY THERAPY ASSESSMENT: Pt was sitting down in her wheelchair during the Assessment. Pt wore clean clothes, glasses, and had long caro hair. Pt was able to verbally express herself, remember her past however she did not know her current location. Pt uses a wheelchair to ambulate and can will need help with a few ADLS. Pt has a brief history of and interest in drawing, movies, and making things. Pt also claims that she is not used to dealing with stress and participates at her will but she must be invited to activity therapy groups. Initial Treatment Goal: Pt will increase Recreation engagement and Socialization by engaging in at least two activity therapy groups per week. Addendum: 02/19/19 at 1015 by ANDREW ABARCA ACT Goal changed 02/19/2019: Pt. will participate in at least three individual Activity Therapy sessions before discharge.
[2019-02-05] MEDS: PANTOPRAZOLE 40 MG TABLET. PO SCH (09:31)
--- NOTE | 2019-02-05 09:58 | NUR ---
Patient was in her room, calm and compliant with assessments and medications. No agitation and aggression at the moment.
[2019-02-05] MEDS: FELBAMATE 400 MG TABLET PO SCH ×3 (10:45→20:29)
--- NOTE | 2019-02-05 13:50 | NUR ---
Patient yelling and screaming in day room distracting group. Patient refused verbal redirection and was assisted into the west hallway.
--- NOTE | 2019-02-05 15:18 | NUR ---
WEEKLY NOTE: Pt returned to the unit last night from ICU for getting treated for Sepsis. Pt continues to have behaviors (e.g. combative towards staff, refusing medications, yelling, disruptive). Pt will receive a neurology consult and have her Zoloft changed to Luvox 25mg with an increased to 50mg after 3 days. SW will contact pt son to go over these changes with her.
[2019-02-05 16:24] VITALS: BP 108/68
--- NOTE | 2019-02-05 16:30 | NUR ---
Patients ammonia level is 50. Dr. Ackerman prescribed Lactulose to lower the ammonia.
--- NOTE | 2019-02-05 17:09 | HP ---
ADMIT DATE: 02/04/2019 The patient was seen individually evening of 02/04/2019 for this evaluation. IDENTIFYING DATA: The patient is a 64-year-old female who returns back to us from [address] [place] [address]/ICU after she was medically stabilized for her urosepsis per Dr. Ackerman. She continued to have marked mood vacillation, agitation, aggressive behavior, yelling out in high pitched manner, worsening paranoia, aggression. It was felt she could not return to the [facility]. She was further stabilized from a psychiatric standpoint and she was readmitted on the unit. CHIEF COMPLAINT: "I need out of here." The patient was in the day room, wanting to get out back into her room. HISTORY OF PRESENT ILLNESS: The patient has a history of schizoaffective disorder, bipolar type, with periods of elation, racing thoughts, paranoia, psychosis, alternating with depression, sleep and appetite changes and psychotic symptoms. She is also extremely obsessive, repetitive, loud and abrasive. This is what prompted her initial admission to us on 01/13/2019. She was stabilized from a psychiatric standpoint, then developed urosepsis and transferred to the ICU and her psychotropics discontinued resulting in worsening of her agitation. The psychotropics had to be stopped due to drug interactions with the Zyvox that she was started on for the UTI. No active suicidal or homicidal ideation. She also had short-term memory deficits. PAST PSYCHIATRIC HISTORY: As above. MEDICAL HISTORY: Positive for status post urosepsis, seizure disorder, dysphagia. CODE STATUS: Full code. ALLERGIES: VANCOMYCIN, CLOBAZAM, HYDROCODONE. DIET: Dysphagia to ground meat. ACCU-CHEKS: None. Ambulates wheelchair with assist x 1. Meds, takes them whole, crushed if unable to swallow. FAMILY HISTORY: Noncontributory. SOCIAL HISTORY: No alcohol, drug abuse, physical, sexual or elder abuse. She is not known to be a perpetrator. MENTAL STATUS EXAMINATION: The patient was seen individually evening of 02/04/2019. She is in a wheelchair, anxious, restless, loud, repetitive in a pitched manner, quite disruptive on the unit. Abstraction fair, computation impaired, language function intact, attention span short. Mood and affect remains labile, quite paranoid. LABORATORY DATA: Reviewed. IMPRESSION: Schizoaffective disorder, bipolar type, mixed with psychotic features; bipolar 1 disorder, mixed with psychotic features; anxiety disorder, unspecified; impulse control disorder, unspecified; status post urosepsis. Rest as above. Symptoms of obsessive compulsive disorder. PLAN: Admit to geropsychiatry unit at [facility]. I will see the patient daily individually from a psychiatric standpoint. Medical followup with Dr. Ackerman. May consider changing Zoloft to Luvox for her OCD symptoms. May consult Dr. York from a neurological standpoint to monitor the medications for seizure disorder. Continue rest of psychotropics unchanged including BuSpar, Seroquel, Depakote, Remeron, trazodone p.r.n., and Zyprexa p.r.n. ESTIMATED LENGTH OF STAY: 7-10 days. Discharge plans back to [facility] when stable. HARVEY QUIJANO MD DR: LOYD/nts JOB#: [id number] / [id number]
[2019-02-05] MEDS: LACTULOSE 20 GM/30 ML SOLUTION. PO SCH (20:28)
[2019-02-05] MEDS: DIVALPROEX ER 250 MG TAB.ER.24H. PO SCH (20:28)
[2019-02-05] MEDS: ATORVASTATIN CALCIUM 10 MG TABLET. PO SCH (20:30)
[2019-02-05] MEDS: CETIRIZINE HCL 10 MG TABLET PO SCH (20:30)
[2019-02-05] MEDS: MIRTAZAPINE 15 MG TABLET PO SCH (20:31)
--- NOTE | 2019-02-05 21:11 | PDOC ---
Exam Note: David Note: Please also refer to the separate dictated note~for this date of service dictated separately.~Patient seen individually. Discussed the patient with Nursing staff reviewed the chart.~Reviewed interim history and current functioning. Reviewed vital signs,~Labs/ Radiology~and current medications noted below. Continue current treatment with the changes noted in the dictated addendum note Assessment: Vital Signs/I&O: Vital Signs Date Time Temp Pulse Resp B/P (MAP) Pulse Ox O2 Delivery O2 Flow Rate FiO2 02/05/19 20:30 95 02/05/19 16:24 97.4 75 16 108/68 (81) Room Air I & O 02/04/19 02/04/19 02/05/19 15:00 23:00 07:00 Intake Total 100 ml Balance 100 ml Labs: Laboratory Tests Test 02/05/19 06:22 White Blood Count 5.8 x10^3/uL (4.0-11.0) Red Blood Count 3.30 x10^6/uL (3.50-5.40) L Hemoglobin 10.6 g/dL (12.0-15.5) L Hematocrit 31.4 % (36.0-47.0) L Mean Corpuscular Volume 95 fL (79-100) Mean Corpuscular Hemoglobin 32 pg (25-35) Mean Corpuscular Hemoglobin Concent 34 g/dL (31-37) Red Cell Distribution Width 13.5 % (11.5-14.5) Platelet Count 214 x10^3/uL (140-400) Neutrophils (%) (Auto) 43 % (31-73) Lymphocytes (%) (Auto) 31 % (24-48) Monocytes (%) (Auto) 17 % (0-9) H Eosinophils (%) (Auto) 9 % (0-3) H Basophils (%) (Auto) 1 % (0-3) Neutrophils # (Auto) 2.5 x10^3uL (1.8-7.7) Lymphocytes # (Auto) 1.8 x10^3/uL (1.0-4.8) Monocytes # (Auto) 1.0 x10^3/uL (0.0-1.1) Eosinophils # (Auto) 0.5 x10^3/uL (0.0-0.7) Basophils # (Auto) 0.0 x10^3/uL (0.0-0.2) Segmented Neutrophils % 35 % (35-66) Band Neutrophils % 6 % (0-9) Lymphocytes % 35 % (24-48) Atypical Lymphocytes % (Manual) 1 % (0-0) H Monocytes % 11 % (0-10) H Eosinophils % 10 % (0-5) H Basophils % 2 % (0-3) Platelet Estimate Adequate (ADEQUATE) Sodium Level 142 mmol/L (136-145) Potassium Level 3.7 mmol/L (3.5-5.1) Chloride Level 108 mmol/L (98-107) H Carbon Dioxide Level 28 mmol/L (21-32) Anion Gap 6 (6-14) Blood Urea Nitrogen 3 mg/dL (7-20) L Creatinine 0.6 mg/dL (0.6-1.0) Estimated GFR (Cockcroft-Gault) 100.0 BUN/Creatinine Ratio 5 (6-20) L Glucose Level 94 mg/dL (70-99) Calcium Level 8.3 mg/dL (8.5-10.1) L Total Bilirubin 0.2 mg/dL (0.2-1.0) Aspartate Amino Transferase (AST) 32 U/L (15-37) Alanine Aminotransferase (ALT) 40 U/L (14-59) Alkaline Phosphatase 75 U/L (46-116) Ammonia 50 mcmol/L (11-34) H Total Protein 5.8 g/dL (6.4-8.2) L Albumin 2.1 g/dL (3.4-5.0) L Albumin/Globulin Ratio 0.6 (1.0-1.7) L Phenytoin (Dilantin) Level < 0.5 mcg/mL (10.0-20.0) L Phenytoin Last Dose Date Unk Phenytoin Last Dose Time Unk Valproic Acid Level 39 mcg/mL (50-100) L Valproic Acid Last Dose Date 02/04/19 Valproic Acid Last Dose Time 2100 Current Medications: Meds: Current Medications Medications (Trade) Dose Ordered Sig/Antoni Route PRN Reason Start Time Stop Time Status Last Admin Dose Admin Calcium Carbonate/ Glycine (Oscal) 500 mg BIDWMEALS PO 02/05/19 08:00 02/05/19 17:19 Vitamin D (Vitamin D3) 1,000 unit DAILY PO 02/05/19 09:00 02/05/19 09:02 Ferrous Sulfate (Feosol) 325 mg BIDAFTMEAL PO 02/05/19 09:00 02/05/19 17:20 Levothyroxine Sodium (Synthroid) 75 mcg DAILY06 PO 02/05/19 06:00 02/05/19 06:30 Lidocaine (Lidoderm) 1 patch DAILY TP 02/05/19 09:00 02/05/19 09:13 Pantoprazole Sodium (Protonix) 40 mg DAILYAC PO 02/05/19 07:30 02/05/19 09:31 Buspirone HCl (Buspar) 15 mg BIDWMEALS PO 02/05/19 08:00 02/05/19 17:19 Sertraline HCl (Zoloft) 50 mg DAILY PO 02/05/19 09:00 02/05/19 11:39 DC 02/05/19 09:02 Lactulose (Lactulose) 20 gm BID PO 02/05/19 21:00 02/05/19 20:28 I have reviewed the current psychotropics carefully including drug interactions. Risk benefit ratio favors no change other than as noted in my dictated progress note. Diagnosis: Problems: (1) Functional diarrhea (2) Severe major depression with psychotic features (3) Adjustment disorder with depressed mood (4) Bipolar affective, mixed (5) Impulse control disorder (6) Dementia, vascular, with delusions (7) Dementia, vascular, with depression (8) Bipolar affective, mixed, sev w/ psych HARVEY QUIJANO MD Feb 05, 2019 21:11
--- NOTE | 2019-02-06 00:20 | NUR ---
Nursing Note Pt much more pleasant and cooperative this PM. No yelling not demanding a all. Much different than she was last night. Asks for warm clothes and wants to go to bed.
[2019-02-06] MEDS: LEVOTHYROXINE 50 MCG TABLET PO SCH (06:03)
--- NOTE | 2019-02-06 06:15 | CONS ---
DATE OF CONSULTATION: 02/05/2019 ADDENDUM HISTORY OF PRESENT ILLNESS: The patient is a 64-year-old female patient who was transferred down to [address] [place] [address] on account of sepsis and lactic acidosis. She was evaluated and was found to have pneumonia as well as urinary tract infection and was transferred to [address] [place] [address], started on IV antibiotic in the form of Zyvox and Zosyn. Her urine culture was negative and her blood cultures were also negative after 3 days and therefore she was switched to oral Augmentin and was transferred to [facility] for inpatient psychiatric stabilization. She continued to be very agitated, restless, and yelling. PHYSICAL EXAMINATION: GENERAL: When I examined her today, she looked well and was clearly in no apparent respiratory distress. No pallor, jaundice, cyanosis or thyromegaly. No jugular venous distension. No limb edema. VITAL SIGNS: Her heart rate was 81, blood pressure was 116/73, temperature was 97.7, respiratory rate 16, and oxygen saturation was 93%. The rest of clinical exam is stable. LABORATORY DATA: Showed a white cell count 5100, hemoglobin 10.6, hematocrit 31, MCV 95, and platelet count 214,000. Her chemistry showed a serum sodium 142, potassium 3.7, chloride 108, bicarbonate 28, anion gap of 6, BUN 3, creatinine 0.6, estimated GFR was 100 mL per minute. Her glucose was 94. Calcium was 8.3. Total bilirubin, AST, ALT, alkaline phosphatase were normal. Her ammonia was slightly high at 50. Total protein was 5.8, albumin was 2.1. ASSESSMENT: 1. Sepsis, multifactorial, resolved. 2. Right lower lobe pneumonia. 3. Urinary tract infection. She is now on Augmentin 875 mg twice a day. 4. Lactic acidosis due to sepsis, resolved. 5. Altered mental status, improved. 6. Hypertension. 7. Hyperlipidemia. 8. Gastroesophageal reflux disease. 9. Seizure disorder. 10. Dementia. 11. Hypernatremia and hypokalemia resolved. JOHNIE LANDERS MD DR: DORIAN/eboni JOB#: [id number] / [id number]
[2019-02-06 06:29] VITALS: BP 109/71
[2019-02-06] MEDS: LACOSAMIDE 50 MG TABLET PO SCH ×2 (09:00→20:07)
[2019-02-06] MEDS: NYSTATIN TOPICAL POWDER 15GM BOTTLE. TP SCH ×2 (09:03→20:16)
[2019-02-06] MEDS: AMOXICILLIN/K CLAV 875/125MG TABLET. PO SCH ×2 (09:03→20:07)
[2019-02-06] MEDS: LIDOCAINE (700MG/PATCH) PATCH. TP SCH (09:03)
[2019-02-06] MEDS: busPIRone 15 MG TABLET. PO SCH ×2 (09:03→17:25)
[2019-02-06] MEDS: LACTULOSE 20 GM/30 ML SOLUTION. PO SCH ×2 (09:03→20:08)
[2019-02-06] MEDS: levETIRAcetam 500 MG TABLET PO SCH ×2 (09:03→20:07)
[2019-02-06] MEDS: PANTOPRAZOLE 40 MG TABLET. PO SCH (09:04)
[2019-02-06] MEDS: traMADol 50 MG TABLET PO SCH ×3 (09:04→20:07)
[2019-02-06] MEDS: FERROUS SULFATE 325 MG TABLET. PO SCH ×2 (09:04→17:25)
[2019-02-06] MEDS: CHOLECALCIFEROL (VITAMIN D3) 1,000 UNIT TABLET PO SCH (09:04)
[2019-02-06] MEDS: CALCIUM CARBONATE 500 MG TABLET PO SCH ×2 (09:04→17:25)
[2019-02-06] MEDS: MAGNESIUM OXIDE 400 MG TABLET PO SCH ×3 (09:04→20:07)
[2019-02-06] MEDS: PHENobarbital 32.4 MG TABLET. PO SCH ×2 (09:04→20:07)
[2019-02-06] MEDS: FELBAMATE 400 MG TABLET PO SCH ×3 (09:04→20:07)
[2019-02-06] MEDS: POTASSIUM CHLORIDE 20 MEQ TABLET.ER. PO SCH ×2 (09:04→20:06)
[2019-02-06] MEDS: LACTOBACILLUS RHAMNOSUS GG 1 CAPSULE. PO SCH ×2 (09:05→20:07)
[2019-02-06] MEDS: QUEtiapine 25 MG TABLET. PO SCH ×2 (09:05→20:07)
[2019-02-06] MEDS: QUEtiapine 25 MG TABLET. PO PRN (09:52)
[2019-02-06 15:53] VITALS: BP 101/61
--- NOTE | 2019-02-06 18:25 | NUR ---
Per aides, pt attempted to throw dinner tray in dining room. Pt moved to quiet area. Evening medications were given in quiet area. Pt then stated she was hungry and agreed to act appropriately and returned to dining room. Pt ate meal without incident.
--- NOTE | 2019-02-06 19:45 | PN ---
DATE: 02/05/2019 PSYCHIATRIC PROGRESS NOTE This late entry of 02/05/2019 covers elements not covered in my initial note. SUBJECTIVE: I met with the patient in the evening of 02/05/2019, staffed at a treatment team meeting with the entire team in the morning. The patient slept 5 hours previous night. Appetite is fair. She continues to have marked mood lability, anxious, obsessive, loud, and repetitive. REVIEW OF SYSTEMS: Ambulation impaired, in wheelchair. No CV, , pulmonary, eye, ENT system symptoms on review. Reliability varies. MENTAL STATUS EXAM: Oriented to herself and situation. Speech coherent, rapid, loud at times. Abstraction fair, computation impaired, language function intact. Mood and affect labile. LABORATORY DATA: Reviewed. IMPRESSION: Bipolar 1 disorder, mixed with psychotic features; mild cognitive impairment disorder; obsessive-compulsive disorder. PLAN: Change the Zoloft to Luvox 25 mg a day for 2 days, then [address] York for managing anti-seizure meds. Valproic acid level 39 on 02/05/2019. We will make further adjustments as clinically indicated. Continue rest unchanged. MAN Luis QUIJANO MD DR: LOYD/eboni JOB#: [id number] / [id number]
[2019-02-06] MEDS: CETIRIZINE HCL 10 MG TABLET PO SCH (20:07)
[2019-02-06] MEDS: ATORVASTATIN CALCIUM 10 MG TABLET. PO SCH (20:07)
[2019-02-06] MEDS: DIVALPROEX ER 250 MG TAB.ER.24H. PO SCH (20:08)
[2019-02-06] MEDS: MIRTAZAPINE 15 MG TABLET PO SCH (20:08)
--- NOTE | 2019-02-06 21:37 | PDOC ---
Exam Note: David Note: Please also refer to the separate dictated note~for this date of service dictated separately.~Patient seen individually. Discussed the patient with Nursing staff reviewed the chart.~Reviewed interim history and current functioning. Reviewed vital signs,~Labs/ Radiology~and current medications noted below. Continue current treatment with the changes noted in the dictated addendum note Assessment: Vital Signs/I&O: Vital Signs Date Time Temp Pulse Resp B/P (MAP) Pulse Ox O2 Delivery O2 Flow Rate FiO2 02/06/19 21:07 95 02/06/19 15:53 98.1 77 16 101/61 (74) 02/06/19 10:53 Nasal Cannula 3.0 I & O 02/05/19 02/05/19 02/06/19 15:00 23:00 07:00 Intake Total 240 ml 200 ml 240 ml Balance 240 ml 200 ml 240 ml Current Medications: Meds: Current Medications Medications (Trade) Dose Ordered Sig/Antoni Route PRN Reason Start Time Stop Time Status Last Admin Dose Admin Fluvoxamine Maleate (Luvox) 25 mg DAILY PO 02/06/19 09:00 02/07/19 09:01 02/06/19 09:26 I have reviewed the current psychotropics carefully including drug interactions. Risk benefit ratio favors no change other than as noted in my dictated progress note. Diagnosis: Problems: (1) Adjustment disorder with depressed mood (2) Bipolar affective, mixed (3) Impulse control disorder (4) Dementia, vascular, with delusions (5) Dementia, vascular, with depression (6) Bipolar affective, mixed, sev w/ psych HARVEY QUIJANO MD Feb 06, 2019 21:37
--- NOTE | 2019-02-07 00:27 | NUR ---
Pt sitting up in w/c in the [facility] at shift change. Pt yelling, disorganized, and agitated. Pt calling staff "dumb" and saying "this is stupid". [facility], this nurse told pt that she could go into the day room at any time, reminding her that the door to the day room is open and she can go in if she wants. Pt then demanding to go to her room. Pt told that after medications and assessment, she could go to her room. Pt resistive with assessment and compliant with HS medications administered whole, although stated many times "I take too many. This is too much". Pt was offered continued support and encouragement and was able to take her medications without difficulty. When lying down for bed, pt was noted to have a severely excoriated jessica area, picture taken and calazime cream applied.
[2019-02-07] MEDS: LEVOTHYROXINE 50 MCG TABLET PO SCH (05:36)
[2019-02-07 06:20] VITALS: BP 95/64
[2019-02-07] MEDS: FELBAMATE 400 MG TABLET PO SCH ×3 (10:11→20:06)
[2019-02-07] MEDS: busPIRone 15 MG TABLET. PO SCH ×2 (10:13→18:10)
[2019-02-07] MEDS: LACTOBACILLUS RHAMNOSUS GG 1 CAPSULE. PO SCH ×2 (10:13→20:06)
[2019-02-07] MEDS: QUEtiapine 25 MG TABLET. PO SCH ×2 (10:14→20:06)
[2019-02-07] MEDS: CALCIUM CARBONATE 500 MG TABLET PO SCH ×2 (10:14→18:10)
[2019-02-07] MEDS: POTASSIUM CHLORIDE 20 MEQ TABLET.ER. PO SCH ×2 (10:15→20:06)
[2019-02-07] MEDS: traMADol 50 MG TABLET PO SCH ×2 (10:15→20:07)
[2019-02-07] MEDS: PHENobarbital 32.4 MG TABLET. PO SCH ×2 (10:16→20:07)
[2019-02-07] MEDS: NYSTATIN TOPICAL POWDER 15GM BOTTLE. TP SCH ×2 (10:16→20:08)
[2019-02-07] MEDS: levETIRAcetam 500 MG TABLET PO SCH ×2 (10:16→20:06)
[2019-02-07] MEDS: CHOLECALCIFEROL (VITAMIN D3) 1,000 UNIT TABLET PO SCH (10:16)
[2019-02-07] MEDS: PANTOPRAZOLE 40 MG TABLET. PO SCH (10:16)
[2019-02-07] MEDS: MAGNESIUM OXIDE 400 MG TABLET PO SCH ×3 (10:16→20:07)
[2019-02-07] MEDS: FERROUS SULFATE 325 MG TABLET. PO SCH ×2 (10:16→18:14)
[2019-02-07] MEDS: LACTULOSE 20 GM/30 ML SOLUTION. PO SCH ×2 (10:17→20:12)
[2019-02-07] MEDS: AMOXICILLIN/K CLAV 875/125MG TABLET. PO SCH ×2 (10:19→20:07)
[2019-02-07] MEDS: LIDOCAINE (700MG/PATCH) PATCH. TP SCH ×2 (10:21→15:00)
[2019-02-07] MEDS: LACOSAMIDE 50 MG TABLET PO SCH ×2 (14:59→20:07)
[2019-02-07 16:43] VITALS: BP 88/54
[2019-02-07 19:33] VITALS: BP 99/67
[2019-02-07] MEDS: ATORVASTATIN CALCIUM 10 MG TABLET. PO SCH (20:05)
[2019-02-07] MEDS: CETIRIZINE HCL 10 MG TABLET PO SCH (20:06)
[2019-02-07] MEDS: DIVALPROEX ER 250 MG TAB.ER.24H. PO SCH (20:06)
[2019-02-07] MEDS: MIRTAZAPINE 15 MG TABLET PO SCH (20:07)
--- NOTE | 2019-02-07 23:04 | NUR ---
Pt quietly sitting up in w/c in the day room at shift change. Pt calm, no yelling or demanding behaviors noted thus far this evening. Pt cooperative with assessment and compliant with medications. Some of pt's HS medications administered crushed as requested. Pt c/o back pain, scheduled Tramadol administered as ordered. Lactulose held this evening due to having multiple loose stools in the last [address] Lopes on the unit making rounds and new orders received and processed.
--- NOTE | 2019-02-07 23:25 | PDOC ---
Exam Note: David Note: Please also refer to the separate dictated note~for this date of service dictated separately.~Patient seen individually. Discussed the patient with Nursing staff reviewed the chart.~Reviewed interim history and current functioning. Reviewed vital signs,~Labs/ Radiology~and current medications noted below. Continue current treatment with the changes noted in the dictated addendum note Assessment: Vital Signs/I&O: Vital Signs Date Time Temp Pulse Resp B/P (MAP) Pulse Ox O2 Delivery O2 Flow Rate FiO2 02/07/19 21:07 95 02/07/19 19:33 97.1 81 17 99/67 (78) Room Air 02/06/19 10:53 3.0 I & O 02/06/19 02/06/19 02/07/19 15:00 23:00 07:00 Intake Total 240 ml 240 ml 240 ml Balance 240 ml 240 ml 240 ml Current Medications: I have reviewed the current psychotropics carefully including drug interactions. Risk benefit ratio favors no change other than as noted in my dictated progress note. Diagnosis: Problems: (1) Adjustment disorder with depressed mood (2) Bipolar affective, mixed (3) Impulse control disorder (4) Dementia, vascular, with delusions (5) Dementia, vascular, with depression (6) Bipolar affective, mixed, sev w/ psych HARVEY QUIJANO MD Feb 07, 2019 23:25
[2019-02-08] MEDS: LEVOTHYROXINE 50 MCG TABLET PO SCH (05:34)
[2019-02-08 05:46] VITALS: BP 98/62
[2019-02-08] MEDS: PANTOPRAZOLE 40 MG TABLET. PO SCH (07:30)
[2019-02-08] MEDS: CALCIUM CARBONATE 500 MG TABLET PO SCH ×2 (08:00→17:52)
[2019-02-08] MEDS: busPIRone 15 MG TABLET. PO SCH ×2 (08:00→17:52)
[2019-02-08] MEDS: FERROUS SULFATE 325 MG TABLET. PO SCH ×2 (09:00→17:53)
[2019-02-08] MEDS: LACTOBACILLUS RHAMNOSUS GG 1 CAPSULE. PO SCH ×2 (09:00→20:47)
[2019-02-08] MEDS: POTASSIUM CHLORIDE 20 MEQ TABLET.ER. PO SCH ×2 (09:00→20:46)
[2019-02-08] MEDS: MAGNESIUM OXIDE 400 MG TABLET PO SCH ×3 (09:00→20:47)
[2019-02-08] MEDS: CHOLECALCIFEROL (VITAMIN D3) 1,000 UNIT TABLET PO SCH (09:00)
[2019-02-08] MEDS: LACTULOSE 20 GM/30 ML SOLUTION. PO SCH ×2 (09:00→17:53)
[2019-02-08] MEDS: levETIRAcetam 500 MG TABLET PO SCH ×2 (09:00→20:47)
[2019-02-08] MEDS: PHENobarbital 32.4 MG TABLET. PO SCH ×2 (09:00→20:48)
[2019-02-08] MEDS: FELBAMATE 400 MG TABLET PO SCH ×3 (09:00→20:46)
[2019-02-08] MEDS: QUEtiapine 25 MG TABLET. PO SCH ×2 (09:00→20:49)
[2019-02-08] MEDS: LACOSAMIDE 50 MG TABLET PO SCH ×2 (09:00→20:49)
[2019-02-08] MEDS: NYSTATIN TOPICAL POWDER 15GM BOTTLE. TP SCH ×2 (09:00→20:46)
[2019-02-08] MEDS: AMOXICILLIN/K CLAV 875/125MG TABLET. PO SCH ×2 (09:00→20:47)
[2019-02-08] MEDS: traMADol 50 MG TABLET PO SCH ×2 (09:00→20:49)
--- NOTE | 2019-02-08 12:07 | NUR ---
Has been sleeping all morning, difficult to arouse for lunch, when jessica care started, she started yelling "that hurts!" Gluteal fold continues reddened and rash around perimeter. Refused to get up, B/P 83/54 and O2 at 2L with 97% sat. Unable to administer any medications because she will not open her mouth or allow oral temp to be taken. Dependent edema noted on R side as she lies on R side often. Hands and face, fingers.
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
[2019-02-08 16:19] VITALS: BP 96/72
[2019-02-08] MEDS: traMADol 50 MG TABLET PO PRN (17:53)
[2019-02-08 19:54] VITALS: BP 112/21
[2019-02-08] MEDS: ATORVASTATIN CALCIUM 10 MG TABLET. PO SCH (20:47)
[2019-02-08] MEDS: MIRTAZAPINE 15 MG TABLET PO SCH (20:48)
[2019-02-08] MEDS: CETIRIZINE HCL 10 MG TABLET PO SCH (20:49)
--- NOTE | 2019-02-08 21:53 | PDOC ---
Exam Note: David Note: Please also refer to the separate dictated note~for this date of service dictated separately.~Patient seen individually. Discussed the patient with Nursing staff reviewed the chart.~Reviewed interim history and current functioning. Reviewed vital signs,~Labs/ Radiology~and current medications noted below. Continue current treatment with the changes noted in the dictated addendum note Assessment: Vital Signs/I&O: Vital Signs Date Time Temp Pulse Resp B/P (MAP) Pulse Ox O2 Delivery O2 Flow Rate FiO2 02/08/19 20:49 92 02/08/19 19:54 98.8 75 19 112/21 (51) Room Air 02/06/19 10:53 3.0 I & O 0 02/07/19 02/07/19 02/08/19 15:00 23:00 07:00 Intake Total 120 ml 120 ml Balance 120 ml 120 ml Current Medications: Meds: Current Medications Medications (Trade) Dose Ordered Sig/Antoni Route PRN Reason Start Time Stop Time Status Last Admin Dose Admin Oxcarbazepine (Trileptal) 300 mg HS PO 02/08/19 21:00 02/09/19 22:00 02/08/19 20:48 I have reviewed the current psychotropics carefully including drug interactions. Risk benefit ratio favors no change other than as noted in my dictated progress note. Diagnosis: Problems: (1) Severe major depression with psychotic features (2) Adjustment disorder with depressed mood (3) Bipolar affective, mixed (4) Impulse control disorder (5) Dementia, vascular, with delusions (6) Dementia, vascular, with depression (7) Bipolar affective, mixed, sev w/ psych (8) Sepsis HARVEY QUIJANO MD Feb 08, 2019 21:53
--- NOTE | 2019-02-09 00:48 | NUR ---
Pt lying in bed at shift change. Pt yelling out, demanding, argumentative with staff during re-direction. Pt combative and aggressive with cares, attempting to hit staff while helping her to her w/c. Pt yelling and combative in the shower, calling staff "dummy" and "stupid", "you're ugly". This nurse assisted in trying to calm pt but she continued to yell, demanding to be put back to bed. Pt had agreed to take her HS medications whole in pudding but after her shower was completed, she was resistive and continued to yell. Pt was placed in the [facility] for de-escalation where she continued to yell, dali the doors with her w/c, and demand to go back to her room. This nurse explained to pt that she would need to calm down and take her medications before returning to her room because she is only being disruptive to her roommate and other pt's around her. Pt finally agreeable to take her medications whole in pudding but continued to yell afterwards. Pt was again reminded that she would need to calm down and stop yelling before she would be taken back to her room. After approximately 30 minutes, pt calmed and was assisted to bed by this nurse. Pt was calmer and was not combative during HS cares. Pt however, was still irritable and resistive with wearing her O2 but did eventually comply.
[2019-02-09 05:35] VITALS: BP 90/59
[2019-02-09] MEDS: LEVOTHYROXINE 50 MCG TABLET PO SCH (05:45)
[2019-02-09] MEDS: PANTOPRAZOLE 40 MG TABLET. PO SCH ×2 (07:30→08:42)
[2019-02-09] MEDS: busPIRone 15 MG TABLET. PO SCH ×3 (08:00→17:00)
[2019-02-09] MEDS: CALCIUM CARBONATE 500 MG TABLET PO SCH ×3 (08:00→17:00)
[2019-02-09] MEDS: FERROUS SULFATE 325 MG TABLET. PO SCH ×3 (08:40→17:22)
[2019-02-09] MEDS: AMOXICILLIN/K CLAV 875/125MG TABLET. PO SCH ×3 (08:40→14:55)
[2019-02-09] MEDS: CHOLECALCIFEROL (VITAMIN D3) 1,000 UNIT TABLET PO SCH ×2 (08:40→09:00)
[2019-02-09] MEDS: POTASSIUM CHLORIDE 20 MEQ TABLET.ER. PO SCH ×3 (08:40→21:00)
[2019-02-09] MEDS: NYSTATIN TOPICAL POWDER 15GM BOTTLE. TP SCH ×3 (08:41→21:00)
[2019-02-09] MEDS: MAGNESIUM OXIDE 400 MG TABLET PO SCH ×4 (08:41→21:00)
[2019-02-09] MEDS: LACTULOSE 20 GM/30 ML SOLUTION. PO SCH ×3 (08:41→20:33)
[2019-02-09] MEDS: QUEtiapine 25 MG TABLET. PO SCH ×3 (08:41→21:00)
[2019-02-09] MEDS: traMADol 50 MG TABLET PO SCH ×2 (08:42→14:50)
[2019-02-09] MEDS: levETIRAcetam 500 MG TABLET PO SCH ×3 (08:42→21:00)
[2019-02-09] MEDS: PHENobarbital 32.4 MG TABLET. PO SCH ×3 (08:42→21:00)
[2019-02-09] MEDS: LACTOBACILLUS RHAMNOSUS GG 1 CAPSULE. PO SCH ×3 (08:42→21:00)
[2019-02-09] MEDS: LACOSAMIDE 50 MG TABLET PO SCH ×3 (08:42→21:00)
[2019-02-09] MEDS: FELBAMATE 400 MG TABLET PO SCH ×4 (08:42→21:00)
[2019-02-09] MEDS: LIDOCAINE (700MG/PATCH) PATCH. TP SCH ×2 (08:43→09:00)
--- NOTE | 2019-02-09 13:36 | NUR ---
Patient woken up after breakfast. She is agitated, resistive. Put into wheelchair and attempted to bring to the day room. Patient would not stop yelling and disrupting the other patients in the day room, so she was moved to the [facility]. Refused lidoderm patch and all medications. Meds crushed and mixed with strawberry boost and ice cream, patient still refused despite multiple attempts by several different staff members. Ramming into doors and gusman with her wheelchair, yelling loudly. Brought patient to the dining room to see if she would calm down and eat her lunch. She pushed her tray across the table and threw her shake on the floor. Assisted back into the [facility]. She then took her shake and whipped it at the wall, breaking it open. paged by charge nurse, new orders for Haldol 2.5mg IM daily.
[2019-02-09] MEDS: HALOPERIDOL LACT 5 MG/ML VIAL. IM SCH (13:50)
--- NOTE | 2019-02-09 13:50 | NUR ---
Pt refused to have her armband scanned d/t agitation and aggression.
--- NOTE | 2019-02-09 13:55 | NUR ---
When nurse spoke with Dr. Lopes, received orders for Haldol 2.5mg IM daily and ativan 1mg IM daily. Verified with pharmacy pt has had ativan since admission with no adverse effects.
[2019-02-09] MEDS: QUEtiapine 25 MG TABLET. PO PRN (14:55)
[2019-02-09] MEDS: traMADol 50 MG TABLET PO PRN (15:18)
--- NOTE | 2019-02-09 16:04 | NUR ---
Patient received IM Haldol at 1345. Calmed for a very short time and then began ramming the door and yelling "I wanna go to my room you dumb lady." This radio news writer asked her if she would like a snack since she hadn't eaten her breakfast or lunch. Patient said yes. When this radio news writer asked which flavor of ice cream the patient would like, she yelled "None flavor, stupid!". This radio news writer pulled PRN Zydis, Seroquel and missed dose of ABX, crushed it and put it in first scoop of vanilla ice cream. Patient continued to refuse, repeatedly yelling "I want to go to my room and lay down!" This radio news writer told her if she would eat her snack she could go. Patient reluctantly ate the first bite, then she was taken down to her room, where she finished the ice cream. She then began yelling to be put to bed, and said her arms were hurting. PRN Tramadol given whole at 1515. This radio news writer told the patient she could lay down for a little bit but that she had to get up when it was dinner time. This radio news writer and another staff member began assisting patient back into bed when it was noticed that she had been incontinent of an XL amount of loose stool. Very resistive and combative while being cleaned up, attempting to scratch staff. She was too soiled to be cleaned up successfully in her room, and needed to be showered. She was resistive and angrily yelling the whole time, but did not attempt to strike staff again. Brought back to the [facility] at that time to wait for dinner. Will continue to monitor.
--- NOTE | 2019-02-09 17:43 | NUR ---
After patient shower, she was brought to the [facility] to wait for dinner. She continued to yell loudly and dali her wheelchair against gusman and doors, unable to be redirected. Medicated with IM Ativan 1mg at 1630, with moderate effect. Dinner tray brought to [facility]. Patient declined to eat any of her dinner, but did eat 2 ice creams. One of which had 1400, 1700, and 1800 medications crushed inside. [facility], quiet at this time. Will continue to monitor.
[2019-02-09 19:17] VITALS: BP 103/60
[2019-02-09 20:34] VITALS: BP 138/72
[2019-02-09] MEDS: MIRTAZAPINE 15 MG TABLET PO SCH (21:00)
[2019-02-09] MEDS: CETIRIZINE HCL 10 MG TABLET PO SCH (21:00)
[2019-02-09] MEDS: ATORVASTATIN CALCIUM 10 MG TABLET. PO SCH (21:00)
--- NOTE | 2019-02-09 21:15 | PDOC ---
Exam Note: David Note: Please also refer to the separate dictated note~for this date of service dictated separately.~Patient seen individually. Discussed the patient with Nursing staff reviewed the chart.~Reviewed interim history and current functioning. Reviewed vital signs,~Labs/ Radiology~and current medications noted below. Continue current treatment with the changes noted in the dictated addendum note Assessment: Vital Signs/I&O: Vital Signs Date Time Temp Pulse Resp B/P (MAP) Pulse Ox O2 Delivery O2 Flow Rate FiO2 02/09/19 20:34 98.4 70 20 138/72 (94) 97 Nasal Cannula 3.0 I & O 02/08/19 02/08/19 02/09/19 15:00 23:00 07:00 Intake Total 0 ml 240 ml 0 ml Balance 0 ml 240 ml 0 ml Labs: Laboratory Tests Test 02/09/19 07:01 Ammonia 32 mcmol/L (11-34) Current Medications: Meds: Current Medications Medications (Trade) Dose Ordered Sig/Antoni Route PRN Reason Start Time Stop Time Status Last Admin Dose Admin Haloperidol Lactate (Haldol) 2.5 mg DAILY IM 02/09/19 13:45 02/09/19 13:50 Lorazepam (Ativan Inj) 1 mg DAILY IM 02/09/19 16:30 02/09/19 16:30 I have reviewed the current psychotropics carefully including drug interactions. Risk benefit ratio favors no change other than as noted in my dictated progress note. Diagnosis: Problems: (1) Adjustment disorder with depressed mood (2) Bipolar affective, mixed (3) Impulse control disorder (4) Dementia, vascular, with delusions (5) Dementia, vascular, with depression (6) Bipolar affective, mixed, sev w/ psych HARVEY UQIJANO MD Feb 09, 2019 21:15
--- NOTE | 2019-02-09 21:48 | PN ---
DATE: 02/07/2019 PSYCHIATRIC PROGRESS NOTE This late entry 02/07/2019 covers elements not covered in my initial note. SUBJECTIVE: I met with the patient in the evening. The patient slept 5 hours previous night. Per nursing staff report, she had a good day, no yelling. She has had some loose stools and we will monitor this. REVIEW OF SYSTEMS: Ambulation impaired, in wheelchair. No CV, , pulmonary, eye, ENT system symptoms on review. Reliability poor. MENTAL STATUS EXAM: Oriented to herself and situation. Speech coherent, often responses monosyllabic, has some latency, low in volume. Abstraction fair, computation impaired, language function intact, attention span short. Mood and affect remain somewhat withdrawn, anxious, at times labile. LABORATORY DATA: Reviewed. IMPRESSION: Bipolar disorder, mixed with psychotic features; major neurocognitive disorder, early Alzheimer, vascular with delusion, depression. Rest unchanged. PLAN: The patient has had some elevation of her serum ammonia level. In view of this, we will change the Depakote to Trileptal 300 mg daily for 2 days, then 300 mg b.i.d. as a mood stabilizer, increase the Luvox from 25 mg a day to 50 mg a day on 02/08/2019. Maintain BuSpar, Remeron, trazodone, along with Seroquel p.r.n. She is on Vimpat and phenobarbital for seizures along with Keppra and felbamate. Adjust further as clinically indicated. HARVEY QUIJANO MD DR: LOYD/eboni JOB#: [id number] / [id number]
--- NOTE | 2019-02-09 22:00 | PN ---
DATE: 02/08/2019 PSYCHIATRIC PROGRESS NOTE This late entry 02/08/2019 covers the elements not covered in my initial note. SUBJECTIVE: I met with the patient in the evening. The patient slept 7-1/4 hours previous night. She refused a.m. medications, took them later in ice cream. Slept through lunch, somewhat drowsy. Blood pressure was slightly low, agitated, yelling at times in the afternoon, up for supper and p.m. meds in hot chocolate. REVIEW OF SYSTEMS: Ambulation impaired, in wheelchair. No CV, , pulmonary, eye, ENT system symptoms on review. MENTAL STATUS EXAM: Oriented to herself and situation. Speech is coherent, has some latency, low in volume. Abstraction fair, computation impaired, language function intact, attention span short. Mood and affect, somewhat anxious, at times labile, but improved. LABORATORY DATA: Reviewed. IMPRESSION: Bipolar disorder, mixed with psychotic features; major neurocognitive disorder, early Alzheimer, vascular with delusion, depression, seizure disorder. Rest unchanged. PLAN: Continue psychotropics from initial note. Adjust the Trileptal, make further adjustments as clinically indicated. MAN Luis QUIJANO MD DR: LOYD/eboni JOB#: [id number] / [id number]
--- NOTE | 2019-02-09 22:54 | NUR ---
Pt lying in bed at shift change. Pt was irritable and resistive at beginning of shift while staff attempting to obtain her vitals but did calm. Pt has been sleeping but arousable most of the shift, drowsy. Pt cooperative with assessment, HS medications have been held at this time due to pt level of drowsiness. Pt much more compliant and cooperative when staff re-assessed her vitals the second time.
[2019-02-10 02:34] VITALS: BP 92/60
[2019-02-10 05:52] VITALS: BP 96/60
[2019-02-10] MEDS: LEVOTHYROXINE 50 MCG TABLET PO SCH (06:00)
[2019-02-10] MEDS: PANTOPRAZOLE 40 MG TABLET. PO SCH ×2 (07:30→09:12)
[2019-02-10] MEDS: CALCIUM CARBONATE 500 MG TABLET PO SCH ×3 (08:00→17:00)
[2019-02-10] MEDS: busPIRone 15 MG TABLET. PO SCH ×3 (08:00→17:00)
[2019-02-10] MEDS: MAGNESIUM OXIDE 400 MG TABLET PO SCH ×4 (09:00→20:06)
[2019-02-10] MEDS: CHOLECALCIFEROL (VITAMIN D3) 1,000 UNIT TABLET PO SCH ×2 (09:00→09:12)
[2019-02-10] MEDS: LIDOCAINE (700MG/PATCH) PATCH. TP SCH ×2 (09:00→09:13)
[2019-02-10] MEDS: LACTULOSE 20 GM/30 ML SOLUTION. PO SCH ×2 (09:00→19:34)
[2019-02-10] MEDS: FERROUS SULFATE 325 MG TABLET. PO SCH ×3 (09:00→18:00)
[2019-02-10] MEDS: HALOPERIDOL LACT 5 MG/ML VIAL. IM SCH (09:00)
[2019-02-10] MEDS: POTASSIUM CHLORIDE 20 MEQ TABLET.ER. PO SCH ×3 (09:00→20:08)
[2019-02-10] MEDS: LACTOBACILLUS RHAMNOSUS GG 1 CAPSULE. PO SCH ×3 (09:00→20:06)
[2019-02-10] MEDS: QUEtiapine 25 MG TABLET. PO SCH ×3 (09:00→20:06)
[2019-02-10] MEDS: traMADol 50 MG TABLET PO SCH ×3 (09:06→21:00)
[2019-02-10] MEDS: AMOXICILLIN/K CLAV 875/125MG TABLET. PO SCH ×3 (09:06→20:06)
[2019-02-10] MEDS: levETIRAcetam 500 MG TABLET PO SCH ×3 (09:07→20:06)
[2019-02-10] MEDS: LACOSAMIDE 50 MG TABLET PO SCH ×3 (09:07→20:10)
[2019-02-10] MEDS: PHENobarbital 32.4 MG TABLET. PO SCH ×3 (09:11→20:10)
[2019-02-10] MEDS: FELBAMATE 400 MG TABLET PO SCH ×4 (09:11→20:05)
[2019-02-10] MEDS: NYSTATIN TOPICAL POWDER 15GM BOTTLE. TP SCH ×2 (09:13→21:00)
[2019-02-10] MEDS: VITS A & D/LANOLIN TOPICAL OINTMENT 42GM TUBE. TP PRN (09:14)
--- NOTE | 2019-02-10 13:11 | NUR ---
Patient has been refusing her medications. First set of medications were wasted with primary nurse after patient refused to take them multiple times. Another set of medications were pulled, patient was very resistive to taking them, but eventually took the majority of pills. She dropped a buspar, seroquel, and one vimpat tablet, these were non-administered in [facility] Primary nurse informed of patient's actions.
--- NOTE | 2019-02-10 15:18 | NUR ---
Patient woken up by staff at 1030. She was agitated, resistive and combative. Incontinent of small stool. Changed, dressed and brought out to the [facility]. This repairer typewriter attempted to medicate patient several times with no success. Patient was able to elope from the [facility] and made her way back to her room. She was incontinent of XL amount of stool and transferred herself into her bed. This repairer typewriter and two other staff went in to clean her up and return her to the [facility]. She was again resistive, agitated and combative. This repairer typewriter and the charge nurse wasted the original batch of medications that were pulled and re-pulled all the psych meds, seizure meds, pain med and antibiotic. Charge nurse was able to get patient to take most of those medications whole. She threw her Buspar, Seroquel and one of her Vimpats. Returned the patient to her bedroom after she took her medications. Patient refused her 1400 meds. Will attempt to get patient up for dinner.
[2019-02-10 17:15] VITALS: BP 109/70
[2019-02-10] MEDS: traMADol 50 MG TABLET PO PRN ×3 (18:01→20:14)
[2019-02-10 19:59] LABS: BASO % 1 % (0-3); EOS # 0.3 x10^3/uL (0.0-0.7); EOS % 4 % (0-3); HEMATOCRIT 35.8 % (36.0-47.0); LYMPH # 2.2 x10^3/uL (1.0-4.8); LYMPH % 25 % (24-48); MEAN CORPUSCULAR HEMOGLOBIN 32 pg (25-35); MEAN CORPUSCULAR HGB CONC 33 g/dL (31-37); MEAN CORPUSCULAR VOLUME 95 fL (79-100); MONO # 0.9 x10^3/uL (0.0-1.1); MONO % 11 % (0-9); NEUT # 5.3 x10^3uL (1.8-7.7); NEUT % 60 % (31-73); PLATELET COUNT 400 x10^3/uL (140-400); RED BLOOD COUNT 3.76 x10^6/uL (3.50-5.40); RED CELL DISTRIBUTION WIDTH 13.6 % (11.5-14.5); WHITE BLOOD COUNT 8.8 x10^3/uL (4.0-11.0)
[2019-02-10] MEDS: DIVALPROEX 125 MG CAP.SPRINK PO SCH (20:05)
[2019-02-10] MEDS: CETIRIZINE HCL 10 MG TABLET PO SCH (20:07)
[2019-02-10] MEDS: ATORVASTATIN CALCIUM 10 MG TABLET. PO SCH (20:07)
[2019-02-10] MEDS: MIRTAZAPINE 15 MG TABLET PO SCH (20:07)
[2019-02-10 20:14] LABS: ALBUMIN 2.9 g/dL (3.4-5.0); ALBUMIN/GLOBULIN RATIO 0.6 (1.0-1.7); CALCIUM 8.9 mg/dL (8.5-10.1); CREATININE 0.7 mg/dL (0.6-1.0); GFR 83.7; TOTAL BILIRUBIN 0.1 mg/dL (0.2-1.0); TOTAL PROTEIN 7.5 g/dL (6.4-8.2)
--- NOTE | 2019-02-10 21:10 | PDOC ---
Exam Note: David Note: Please also refer to the separate dictated note~for this date of service dictated separately.~Patient seen individually. Discussed the patient with Nursing staff reviewed the chart.~Reviewed interim history and current functioning. Reviewed vital signs,~Labs/ Radiology~and current medications noted below. Continue current treatment with the changes noted in the dictated addendum note Assessment: Vital Signs/I&O: Vital Signs Date Time Temp Pulse Resp B/P (MAP) Pulse Ox O2 Delivery O2 Flow Rate FiO2 02/10/19 20:14 95 02/10/19 17:15 98.6 82 16 109/70 (83) 02/10/19 05:52 3.0 02/10/19 02:34 Nasal Cannula I & O 02/09/19 02/09/19 02/10/19 15:00 23:00 07:00 Intake Total 0 ml 120 ml Balance 0 ml 120 ml Labs: Laboratory Tests Test 02/10/19 19:56 White Blood Count 8.8 x10^3/uL (4.0-11.0) Red Blood Count 3.76 x10^6/uL (3.50-5.40) Hemoglobin 12.0 g/dL (12.0-15.5) Hematocrit 35.8 % (36.0-47.0) L Mean Corpuscular Volume 95 fL (79-100) Mean Corpuscular Hemoglobin 32 pg (25-35) Mean Corpuscular Hemoglobin Concent 33 g/dL (31-37) Red Cell Distribution Width 13.6 % (11.5-14.5) Platelet Count 400 x10^3/uL (140-400) Neutrophils (%) (Auto) 60 % (31-73) Lymphocytes (%) (Auto) 25 % (24-48) Monocytes (%) (Auto) 11 % (0-9) H Eosinophils (%) (Auto) 4 % (0-3) H Basophils (%) (Auto) 1 % (0-3) Neutrophils # (Auto) 5.3 x10^3uL (1.8-7.7) Lymphocytes # (Auto) 2.2 x10^3/uL (1.0-4.8) Monocytes # (Auto) 0.9 x10^3/uL (0.0-1.1) Eosinophils # (Auto) 0.3 x10^3/uL (0.0-0.7) Basophils # (Auto) 0.0 x10^3/uL (0.0-0.2) Sodium Level 140 mmol/L (136-145) Potassium Level 4.0 mmol/L (3.5-5.1) Chloride Level 104 mmol/L (98-107) Carbon Dioxide Level 28 mmol/L (21-32) Anion Gap 8 (6-14) Blood Urea Nitrogen 23 mg/dL (7-20) H Creatinine 0.7 mg/dL (0.6-1.0) Estimated GFR (Cockcroft-Gault) 83.7 BUN/Creatinine Ratio 33 (6-20) H Glucose Level 116 mg/dL (70-99) H Calcium Level 8.9 mg/dL (8.5-10.1) Total Bilirubin 0.1 mg/dL (0.2-1.0) L Aspartate Amino Transferase (AST) 18 U/L (15-37) Alanine Aminotransferase (ALT) 22 U/L (14-59) Alkaline Phosphatase 102 U/L (46-116) Total Protein 7.5 g/dL (6.4-8.2) Albumin 2.9 g/dL (3.4-5.0) L Albumin/Globulin Ratio 0.6 (1.0-1.7) L Current Medications: Meds: Current Medications Medications (Trade) Dose Ordered Sig/Antoni Route PRN Reason Start Time Stop Time Status Last Admin Dose Admin Oxcarbazepine (Trileptal) 300 mg BID PO 02/10/19 09:00 02/10/19 17:31 DC 02/10/19 13:00 Divalproex Sodium (Depakote Sprinkles) 250 mg BID PO 02/10/19 21:00 02/10/19 20:05 I have reviewed the current psychotropics carefully including drug interactions. Risk benefit ratio favors no change other than as noted in my dictated progress note. Diagnosis: Problems: (1) Adjustment disorder with depressed mood (2) Bipolar affective, mixed (3) Impulse control disorder (4) Dementia, vascular, with delusions (5) Dementia, vascular, with depression (6) Bipolar affective, mixed, sev w/ psych HARVEY QUIJANO MD Feb 10, 2019 21:09
--- NOTE | 2019-02-10 22:17 | NUR ---
Nursing Note Pt yelling constantly, wants to go to bed, wants to open the door. Angry driving her chair into staff and peers, hits at staff, states she won't take her meds, is just argumentative in general. Finally med compliant and cooperative.
--- NOTE | 2019-02-10 22:27 | PN ---
DATE: 02/09/2019 PSYCHIATRIC PROGRESS NOTE This late entry 02/09/2019 covers elements not covered in my initial note. SUBJECTIVE: I met with the patient evening of 02/09/2019 and I have been called by the nursing staff as an emergency on 2 or 3 occasions morning of 02/09/2019 on account of the patient's marked agitation, yelling, screaming, physically attacking staff, ramming her wheelchair into others, banging on the doors and refusing all her psychotropics. She threw her meds at the wall, refusing all her meals. We started scheduled Haldol and Ativan. She just received the Haldol since there was a question of allergy to Ativan due to allergy to CLOBAZAM. However, she has received several dosages of Ativan during her last admission with no adverse effect and we finally started her on the IM Ativan 0.5 mg daily as well. First, injection was given in the evening. REVIEW OF SYSTEMS: Ambulation impaired, in wheelchair. No CV, , pulmonary, eye, ENT system symptoms on review. Reliability varies. MENTAL STATUS EXAMINATION: Oriented to herself, at times situation. Speech coherent, rapid, loud at times. Abstraction fair, computation impaired, language function intact, attention span short. Mood and affect extremely labile, anxious, disruptive. LABORATORY DATA: Reviewed. IMPRESSION: Unchanged from initial note. Schizoaffective disorder, bipolar type, mixed with psychotic features; bipolar disorder, mixed with psychotic features, mild cognitive impairment; obsessive-compulsive disorder. PLAN: Continue psychotropics from initial note including BuSpar, Remeron, trazodone, Seroquel. She remains on phenobarbital, Vimpat, Keppra, felbamate for her seizures and Luvox 50 mg a day, Trileptal, increasing for her bipolar symptoms. We will consult Dr. York for recommendations on her anti-seizure meds since Keppra could be worsening agitation. Given her elevated ammonia level, we changed the Depakote to Trileptal, but this has not been as effective as Depakote. In the meantime, ammonia level is back to normal. We may need to restart Depakote. We will decide in the next day or so. MAN M. MACIE, MD DR: LOYD/eboni JOB#: [id number] / [id number]
[2019-02-11 04:45] VITALS: BP 86/57
[2019-02-11] MEDS: LEVOTHYROXINE 50 MCG TABLET PO SCH (06:00)
[2019-02-11] MEDS: PANTOPRAZOLE 40 MG TABLET. PO SCH ×2 (07:30→08:57)
[2019-02-11] MEDS: CALCIUM CARBONATE 500 MG TABLET PO SCH ×3 (08:00→17:00)
[2019-02-11] MEDS: LIDOCAINE (700MG/PATCH) PATCH. TP SCH ×2 (08:54→09:00)
[2019-02-11] MEDS: NYSTATIN TOPICAL POWDER 15GM BOTTLE. TP SCH ×2 (08:55→20:58)
[2019-02-11] MEDS: FELBAMATE 400 MG TABLET PO SCH ×3 (08:55→20:59)
[2019-02-11] MEDS: AMOXICILLIN/K CLAV 875/125MG TABLET. PO SCH ×2 (08:55→20:58)
[2019-02-11] MEDS: QUEtiapine 25 MG TABLET. PO SCH ×2 (08:55→20:59)
[2019-02-11] MEDS: MAGNESIUM OXIDE 400 MG TABLET PO SCH ×4 (08:55→21:01)
[2019-02-11] MEDS: LACTOBACILLUS RHAMNOSUS GG 1 CAPSULE. PO SCH ×3 (08:55→21:00)
[2019-02-11] MEDS: LACOSAMIDE 50 MG TABLET PO SCH ×2 (08:58→21:00)
[2019-02-11] MEDS: PHENobarbital 32.4 MG TABLET. PO SCH ×2 (08:58→20:59)
[2019-02-11] MEDS: FERROUS SULFATE 325 MG TABLET. PO SCH ×2 (08:58→09:00)
[2019-02-11] MEDS: DIVALPROEX 125 MG CAP.SPRINK PO SCH ×2 (08:59→20:59)
[2019-02-11] MEDS: CHOLECALCIFEROL (VITAMIN D3) 1,000 UNIT TABLET PO SCH (08:59)
[2019-02-11] MEDS: traMADol 50 MG TABLET PO SCH ×2 (08:59→20:59)
[2019-02-11] MEDS: busPIRone 15 MG TABLET. PO SCH ×2 (08:59→17:00)
[2019-02-11] MEDS: LACTULOSE 20 GM/30 ML SOLUTION. PO SCH ×2 (09:00→20:58)
[2019-02-11] MEDS: POTASSIUM CHLORIDE 20 MEQ TABLET.ER. PO SCH ×2 (09:00→21:00)
[2019-02-11] MEDS: levETIRAcetam 500 MG TABLET PO SCH ×2 (09:00→21:00)
--- NOTE | 2019-02-11 10:00 | NUR ---
Patient gotten up by staff. She was more cooperative than usual with getting out of bed and getting showered. Once she was out of the shower, she began to yell, calling staff "dummies", insisting on returning to bed. She was brought to the [facility] while this board writer prepared Addendum: 02/11/19 at 1707 by ARIE MONAHAN RN RN .....while this board writer prepared her medications. During that time, another patient became agitated and needed to be placed in the [facility] as well. Patient began to yell at the other patient and began trying to punch this board writer. Decision was made to attempt to put the patient in the day room while this board writer finished preparing meds. She began to agitate the other patients in the day room, attempting to pinch and hit them and other staff members. Brought out to the [facility] to attempt to give meds. Offered patient her psych meds, ABX, pain pill and anti-seizure meds offered to patient whole. She yelled "That's too much, that's dumb, I wanna go to my room!" This board writer told the patient that she could return to her room when she finished taking her pills. She took the first half of the cup of pills, then took the second. Encouraged to finish her cranberry juice. Saw a staff member walking down the xiong towards this board writer and her, and yelled "She's dumb, that dumb pink one!" and then flung her cranberry juice at that staff member. Patient brought to her room at that time.
--- NOTE | 2019-02-11 11:45 | NUR ---
This freelance writer went to patients room and found her sitting awake, quietly. Asked patient if she was hungry, and she said yes. This freelance writer asked if she would like to go to the dining room for lunch, and she also agreed to that. Got out of her bed and into the wheelchair with minimal assistance, followed directions to lift her feet off the floor. Brought into the dining room. Patient ate her lunch and was appropriately behaved until the end of lunch. She wheeled herself to the group room where another patient had visitors, and started yelling "Shut up dummies!! Shut up!!" Received TALIA Seroquel and returned to her room at that time.
[2019-02-11] MEDS: QUEtiapine 25 MG TABLET. PO PRN (13:16)
--- NOTE | 2019-02-11 13:21 | NUR ---
She is yelling non stop in the day room and irritating peers, demanding to go to bed. Verbal redirection is not effective, patient given PRN seroquel per order for agitation. Patient initially resistive with medications and threw med cup onto the floor. Staff assisted patient to room to lay down after she was compliant with medications.
[2019-02-11 15:57] VITALS: BP 96/71
--- NOTE | 2019-02-11 18:04 | NUR ---
Patient transferred herself out of bed and into her wheelchair. Wheeled herself down to the nurses station and stopped just outside the door, quietly looking in. This specifications writer asked if she was hungry and if she wanted to go to the dining room. She said yes. Wheeled herself to the dining room and ate 75% of her meal. No behaviors. She is currently wheeling herself around the unit.
[2019-02-11] MEDS: CETIRIZINE HCL 10 MG TABLET PO SCH (21:00)
[2019-02-11] MEDS: ATORVASTATIN CALCIUM 10 MG TABLET. PO SCH (21:00)
[2019-02-11] MEDS: MIRTAZAPINE 15 MG TABLET PO SCH (21:00)
--- NOTE | 2019-02-11 21:43 | PDOC ---
Exam Note: David Note: Please also refer to the separate dictated note~for this date of service dictated separately.~Patient seen individually. Discussed the patient with Nursing staff reviewed the chart.~Reviewed interim history and current functioning. Reviewed vital signs,~Labs/ Radiology~and current medications noted below. Continue current treatment with the changes noted in the dictated addendum note Assessment: Vital Signs/I&O: Vital Signs Date Time Temp Pulse Resp B/P (MAP) Pulse Ox O2 Delivery O2 Flow Rate FiO2 02/11/19 20:59 16 98 Room Air 02/11/19 15:57 98.4 67 96/71 (79) 02/10/19 05:52 3.0 I & O 02/10/19 02/10/19 02/11/19 15:00 23:00 07:00 Intake Total 0 ml 120 ml Balance 0 ml 120 ml Current Medications: I have reviewed the current psychotropics carefully including drug interactions. Risk benefit ratio favors no change other than as noted in my dictated progress note. Diagnosis: Problems: (1) Severe major depression with psychotic features (2) Adjustment disorder with depressed mood (3) Bipolar affective, mixed (4) Impulse control disorder (5) Dementia, vascular, with delusions (6) Dementia, vascular, with depression (7) Left hip arthroplasty (8) Bipolar affective, mixed, sev w/ psych HARVEY QUIJANO MD Feb 11, 2019 21:43
--- NOTE | 2019-02-11 22:48 | NUR ---
pt was quiet,calm and compliant this evening. during med pass today she took all her meds whole except for the potassium. I crushed the potassium and put it in vanilla pudding. Pt was quiet all evening currently sleeping in her room.
[2019-02-12] MEDS: LEVOTHYROXINE 50 MCG TABLET PO SCH (04:50)
[2019-02-12 05:18] VITALS: BP 90/56
--- NOTE | 2019-02-12 08:57 | NUR ---
WEEKLY ACTIVITY THERAPY NOTE Date of Admission: 02/05/2019; DC to ICU 02/01/2019 Date of AT Assessment: 02/05/2019 Goal aimed: to increase engagement and socialization Initial Goal: Pt. will participate in at least two activity therapy groups per week. Weekly progress towards goal: did not achieve Group participation level: zero Weekly highlights: Behaviors observed: secured hallway often, yelling out, difficult to redirect Plan: no change to goal Beneficial adaptations: TBD
[2019-02-12] MEDS: FERROUS SULFATE 325 MG TABLET. PO SCH ×4 (09:00→17:38)
[2019-02-12] MEDS: NYSTATIN TOPICAL POWDER 15GM BOTTLE. TP SCH ×2 (09:00→20:32)
[2019-02-12] MEDS: LACTULOSE 20 GM/30 ML SOLUTION. PO SCH ×2 (09:00→20:30)
--- NOTE | 2019-02-12 09:10 | PN ---
DATE: 02/10/2019 PSYCHIATRIC PROGRESS NOTE This late entry, 02/10, covers the elements not covered in my initial note. SUBJECTIVE: I met with the patient in the evening. Per LION Schulte, the patient has continued to have some diarrhea. Lactulose was being held. Ammonia is 32, unremarkable. She woke up at 10:30 a.m., noncompliant with medications, had no breakfast or lunch and no intramuscular medication was given. We will check her labs to make sure she is not dehydrated. REVIEW OF SYSTEMS: Ambulation impaired, in wheelchair. No CV, , pulmonary, eye systems symptoms on review. She has vague somatic symptoms. MENTAL STATUS EXAM: Oriented to herself and situation. Speech has some latency, coherent, can be rapid, loud at times. Abstraction fair, computation impaired, language function intact. Mood and affect still remains depressed, anxious, labile at times. LABORATORY DATA: Reviewed. IMPRESSION: Unchanged from initial note. PLAN: We will change the patient's Trileptal to Depakote Sprinkles 250 mg twice a day. Check CBC, CMP, valproic acid level, ammonia level in 3 days. I do feel she would respond better to Depakote as a mood stabilizer than the Trileptal. We will adjust as clinically indicated. Rest unchanged for now. HARVEY QUIJANO MD DR: LOYD/eboni JOB#: [id number] / [id number]
--- NOTE | 2019-02-12 10:57 | NUR ---
WEEKLY NOTE: Pt son, Kaushik, participated in tx team via telephone. Pt had her Depakote stopped as her Ammonia level was elevated and had to start lactulose to decrease that level; pt labs and level has gotten better. Depakote was now restarted to 250mg BID and pt Ammonia will have to be closely watched. Pt is eating roughly 50% for meals and sleeping roughly 6 hours per night. Pt son is concerned about her compliance at [facility] and other precipitating events. ELOS is scheduled for next week either Saturday or . SW will continue to work with pt.
[2019-02-12] MEDS: LIDOCAINE (700MG/PATCH) PATCH. TP SCH ×2 (11:06→11:50)
[2019-02-12] MEDS: AMOXICILLIN/K CLAV 875/125MG TABLET. PO SCH ×2 (11:07→20:28)
[2019-02-12] MEDS: busPIRone 15 MG TABLET. PO SCH ×3 (11:07→17:38)
[2019-02-12] MEDS: POTASSIUM CHLORIDE 20 MEQ TABLET.ER. PO SCH ×2 (11:07→20:27)
[2019-02-12] MEDS: DIVALPROEX 125 MG CAP.SPRINK PO SCH ×2 (11:07→20:26)
[2019-02-12] MEDS: CALCIUM CARBONATE 500 MG TABLET PO SCH ×3 (11:07→17:38)
[2019-02-12] MEDS: PANTOPRAZOLE 40 MG TABLET. PO SCH (11:08)
[2019-02-12] MEDS: MAGNESIUM OXIDE 400 MG TABLET PO SCH ×3 (11:08→20:28)
[2019-02-12] MEDS: LACOSAMIDE 50 MG TABLET PO SCH ×2 (11:08→20:28)
[2019-02-12] MEDS: PHENobarbital 32.4 MG TABLET. PO SCH ×2 (11:08→20:27)
[2019-02-12] MEDS: levETIRAcetam 500 MG TABLET PO SCH ×2 (11:08→20:27)
[2019-02-12] MEDS: QUEtiapine 25 MG TABLET. PO SCH ×2 (11:09→20:26)
[2019-02-12] MEDS: LACTOBACILLUS RHAMNOSUS GG 1 CAPSULE. PO SCH ×2 (11:09→20:28)
[2019-02-12] MEDS: HALOPERIDOL LACT 5 MG/ML VIAL. IM SCH ×2 (11:09→11:28)
[2019-02-12] MEDS: CHOLECALCIFEROL (VITAMIN D3) 1,000 UNIT TABLET PO SCH (11:10)
[2019-02-12] MEDS: FELBAMATE 400 MG TABLET PO SCH ×3 (11:10→20:31)
[2019-02-12] MEDS: traMADol 50 MG TABLET PO SCH ×2 (11:10→20:28)
--- NOTE | 2019-02-12 13:06 | NUR ---
Patient was allowed to sleep in until about 11:00 then woken up and assisted into the day room. Patient was sarcastic, telling staff and patients that they are dumb or stupid. When staff and patients were saying goodbye to a discharging patient, she called out 'we all hate you'. She made repeated attempts to leave the day room, hitting staff and attempting to hit other patients when restricted from leaving. Patient placed in [place] where she continued to yell out and banged on the gusman and doors. She refused multiple attempts to provide morning medications. Scheduled IMs provided per eMAR, patient refused to let me scan her bracelet for those. Depakote and tramadol hidden in ice cream and provided to patient. After waiting about 20 minutes, then again attempted to provide morning medications, patient accepted after several minutes of back and forth. Patient provided lunch, then assisted back to bed. Will continue to monitor.
[2019-02-12 15:41] VITALS: BP 98/66
--- NOTE | 2019-02-12 17:39 | NUR ---
Patient refused dinnertime medications. Non-administered in eMAR. Will continue to monitor.
[2019-02-12] MEDS: MIRTAZAPINE 15 MG TABLET PO SCH (20:26)
[2019-02-12] MEDS: CETIRIZINE HCL 10 MG TABLET PO SCH (20:26)
[2019-02-12] MEDS: ATORVASTATIN CALCIUM 10 MG TABLET. PO SCH (20:28)
--- NOTE | 2019-02-12 21:39 | PDOC ---
Exam Note: Dvaid Note: Please also refer to the separate dictated note~for this date of service dictated separately.~Patient seen individually. Discussed the patient with Nursing staff reviewed the chart.~Reviewed interim history and current functioning. Reviewed vital signs,~Labs/ Radiology~and current medications noted below. Continue current treatment with the changes noted in the dictated addendum note Assessment: Vital Signs/I&O: Vital Signs Date Time Temp Pulse Resp B/P (MAP) Pulse Ox O2 Delivery O2 Flow Rate FiO2 02/12/19 20:28 18 02/12/19 15:41 98.5 78 98/66 (77) 82 02/12/19 12:32 Room Air 02/10/19 05:52 3.0 I & O 02/11/19 02/11/19 02/12/19 15:00 23:00 07:00 Intake Total 240 ml 240 ml 240 ml Balance 240 ml 240 ml 240 ml Current Medications: I have reviewed the current psychotropics carefully including drug interactions. Risk benefit ratio favors no change other than as noted in my dictated progress note. Diagnosis: Problems: (1) Adjustment disorder with depressed mood (2) Bipolar affective, mixed (3) Impulse control disorder (4) Dementia, vascular, with delusions (5) Dementia, vascular, with depression (6) Bipolar affective, mixed, sev w/ psych HARVEY QUIJANO MD Feb 12, 2019 21:39
--- NOTE | 2019-02-13 00:31 | NUR ---
Patient wandered into another patients room at time of medication administration and assessment. Patient resisted going back to her room but eventually went and was being very resistive trying to knock cups off of the WOW and did not want to allow her wristband to be scanned. Patients medications were crushed in apple sauce. Patient complaining and somewhat resistive then entire time, but eventually took all her medications. Patient was then yelling in the bed for about an hour and eventually, yelled herself to sleep. No other notable behaviors at this time.
[2019-02-13 05:38] VITALS: BP 103/69
[2019-02-13] MEDS: LEVOTHYROXINE 50 MCG TABLET PO SCH (05:44)
[2019-02-13] MEDS: VITS A & D/LANOLIN TOPICAL OINTMENT 42GM TUBE. TP PRN (11:50)
[2019-02-13] MEDS: AMOXICILLIN/K CLAV 875/125MG TABLET. PO SCH ×2 (11:59→19:38)
[2019-02-13] MEDS: levETIRAcetam 500 MG TABLET PO SCH ×2 (11:59→19:39)
[2019-02-13] MEDS: busPIRone 15 MG TABLET. PO SCH ×2 (12:00→17:30)
[2019-02-13] MEDS: LACTULOSE 20 GM/30 ML SOLUTION. PO SCH ×2 (12:00→21:00)
[2019-02-13] MEDS: LACOSAMIDE 50 MG TABLET PO SCH ×2 (12:00→19:39)
[2019-02-13] MEDS: DIVALPROEX 125 MG CAP.SPRINK PO SCH ×2 (12:00→19:36)
[2019-02-13] MEDS: traMADol 50 MG TABLET PO SCH ×2 (12:01→19:37)
[2019-02-13] MEDS: PHENobarbital 32.4 MG TABLET. PO SCH ×2 (12:01→19:38)
[2019-02-13] MEDS: PANTOPRAZOLE 40 MG TABLET. PO SCH (12:01)
[2019-02-13] MEDS: FELBAMATE 400 MG TABLET PO SCH ×3 (12:02→19:39)
[2019-02-13] MEDS: QUEtiapine 25 MG TABLET. PO SCH ×2 (12:02→19:36)
[2019-02-13] MEDS: LIDOCAINE (700MG/PATCH) PATCH. TP SCH (12:03)
[2019-02-13] MEDS: CHOLECALCIFEROL (VITAMIN D3) 1,000 UNIT TABLET PO SCH (12:20)
[2019-02-13] MEDS: CALCIUM CARBONATE 500 MG TABLET PO SCH ×2 (12:20→17:29)
[2019-02-13] MEDS: NYSTATIN TOPICAL POWDER 15GM BOTTLE. TP SCH ×2 (12:20→19:39)
[2019-02-13] MEDS: POTASSIUM CHLORIDE 20 MEQ TABLET.ER. PO SCH ×2 (12:20→19:37)
[2019-02-13] MEDS: FERROUS SULFATE 325 MG TABLET. PO SCH ×2 (12:20→17:29)
[2019-02-13] MEDS: LACTOBACILLUS RHAMNOSUS GG 1 CAPSULE. PO SCH ×2 (12:20→19:36)
[2019-02-13] MEDS: MAGNESIUM OXIDE 400 MG TABLET PO SCH ×3 (12:20→19:37)
--- NOTE | 2019-02-13 13:51 | NUR ---
Patient was allowed to sleep in until about 12:00 then woken up and assisted into the day room. Patient was sarcastic, telling staff and patients that they are dumb or stupid. She complained that her bottom hurt and that it hurt when staff cleaned her up before she got out of bed. She took her morning medications after almost thirty minutes of back and forth; with her calling me stupid, dumb, and ugly; she agreed to take the medications multiple times and then refused them. Redirection and education not effective, she only agreed to take the medications when staff started to escort her to the [facility], and she still wanted to argue over every pill. Patient provided lunch, then assisted back to bed. Will continue to monitor.
[2019-02-13] MEDS: HALOPERIDOL LACT 5 MG/ML VIAL. IM SCH (15:00)
[2019-02-13 16:07] VITALS: BP 104/69
[2019-02-13] MEDS: CETIRIZINE HCL 10 MG TABLET PO SCH (19:36)
[2019-02-13] MEDS: ATORVASTATIN CALCIUM 10 MG TABLET. PO SCH (19:37)
[2019-02-13] MEDS: MIRTAZAPINE 15 MG TABLET PO SCH (19:38)
--- NOTE | 2019-02-13 21:33 | PDOC ---
Exam Note: David Note: Please also refer to the separate dictated note~for this date of service dictated separately.~Patient seen individually. Discussed the patient with Nursing staff reviewed the chart.~Reviewed interim history and current functioning. Reviewed vital signs,~Labs/ Radiology~and current medications noted below. Continue current treatment with the changes noted in the dictated addendum note Assessment: Vital Signs/I&O: Vital Signs Date Time Temp Pulse Resp B/P (MAP) Pulse Ox O2 Delivery O2 Flow Rate FiO2 02/13/19 16:07 97.5 64 16 104/69 (81) 94 02/13/19 13:20 Room Air 02/10/19 05:52 3.0 I & O 02/12/19 02/12/19 02/13/19 15:00 23:00 07:00 Intake Total 60 ml 240 ml 240 ml Balance 60 ml 240 ml 240 ml Current Medications: I have reviewed the current psychotropics carefully including drug interactions. Risk benefit ratio favors no change other than as noted in my dictated progress note. Diagnosis: Problems: (1) Severe major depression with psychotic features (2) Adjustment disorder with depressed mood (3) Bipolar affective, mixed (4) Impulse control disorder (5) Dementia, vascular, with delusions (6) Dementia, vascular, with depression (7) Bipolar affective, mixed, sev w/ psych HARVEY QUIJANO MD Feb 13, 2019 21:33
--- NOTE | 2019-02-14 00:41 | PN ---
DATE: 02/11/2019 PSYCHIATRIC PROGRESS NOTE This late entry 02/11/2019 covers the elements not covered in my initial note. SUBJECTIVE: I met with the patient in the evening of 02/11/2019. Per Lynne SEYMOUR, the patient slept 7-1/2 hours previous night. She was quite agitated after the shower in the morning, threw cranberry juice at staff, and on the floor, did eat her lunch. Once again after lunch, she was agitated, anxious, restless, and received Seroquel p.r.n. at 1:00 p.m., then did better. REVIEW OF SYSTEMS: Ambulation impaired, in wheelchair, complains of tiredness. No CV, , pulmonary, eye, ENT system symptoms on review. MENTAL STATUS EXAM: Oriented to herself and situation. Speech moderate latency, often responses monosyllabic. Abstraction fair, computation impaired, language function intact, attention span short. Mood and affect remains anxious and labile. LABORATORY DATA: Reviewed. IMPRESSION: Bipolar disorder, mixed with psychotic features, mild cognitive impairment; anxiety disorder, unspecified; impulse control disorder, unspecified. PLAN: No change from initial note. Continue psychotropics mentioned in initial note. Depakote was restarted. Follow labs level, ammonia level, adjust to reach therapeutic level. MAN Luis QUIJANO MD DR: LOYD/eboni JOB#: [id number] / [id number]
--- NOTE | 2019-02-14 01:37 | NUR ---
Last evening pt was uncooperative with cares, after shower she was placed in [place] and continually yelled calling staff blaire holcomb mean. She initially refused her meds then said she would take them then refused to take them again. Explained to pt she needs her seizure meds and eventually did take them but complained that there were to many pills..... After meds she went quietly to bed and has been sleeping well.
--- NOTE | 2019-02-14 02:24 | PN ---
DATE: 02/12/2019 PSYCHIATRIC PROGRESS NOTE This late entry 02/12/2019 covers elements not covered in my initial note. SUBJECTIVE: I met with the patient in the evening of 02/12/2019 and staffed at a treatment team meeting with the entire team in the morning and the patient's son, Kaushik attended this conference. We had a lengthy discussion about the patient's diagnosis, progress, medications. She is eating about 50%, which is some improvement from before. Sleeping average of 6 hours, quite cooperative for the last day or so, but prior to that quite agitated, disruptive, anxious, labile. She had some occasional yelling resistive to medications. Son shared how all her symptoms had worsened significantly post the of her . REVIEW OF SYSTEMS: Ambulation impaired, in wheelchair. No CV, , pulmonary, eye, ENT system symptoms on review. MENTAL STATUS EXAM: Oriented to herself and situation. Speech moderate latency, often responses monosyllabic. Abstraction fair, computation impaired, language function intact, attention span short. She is somewhat paranoid, anxious, labile, depressed at times, but less so than before. No suicidal or homicidal ideation. LABORATORY DATA: Reviewed. IMPRESSION: Bipolar disorder, mixed with psychotic features, mild cognitive impairment; anxiety disorder, unspecified; status post urosepsis. PLAN: Continue current psychotropics. We have restarted the Depakote. We will repeat labs, ammonia level achieved therapeutic level. Rest unchanged for now. MAN Luis QUIJANO MD DR: LOYD/eboni JOB#: [id number] / [id number]
[2019-02-14] MEDS: LEVOTHYROXINE 50 MCG TABLET PO SCH (05:34)
[2019-02-14 05:46] VITALS: BP 94/61
[2019-02-14] MEDS: LIDOCAINE (700MG/PATCH) PATCH. TP SCH (08:30)
[2019-02-14] MEDS: NYSTATIN TOPICAL POWDER 15GM BOTTLE. TP SCH ×2 (08:30→20:59)
[2019-02-14] MEDS: LACTULOSE 20 GM/30 ML SOLUTION. PO SCH (08:30)
[2019-02-14] MEDS: FERROUS SULFATE 325 MG TABLET. PO SCH ×2 (08:31→17:45)
[2019-02-14] MEDS: DIVALPROEX 125 MG CAP.SPRINK PO SCH ×2 (08:31→20:58)
[2019-02-14] MEDS: traMADol 50 MG TABLET PO SCH ×2 (08:32→20:58)
[2019-02-14] MEDS: CALCIUM CARBONATE 500 MG TABLET PO SCH ×2 (08:32→17:44)
[2019-02-14] MEDS: busPIRone 15 MG TABLET. PO SCH ×2 (08:32→17:45)
[2019-02-14] MEDS: MAGNESIUM OXIDE 400 MG TABLET PO SCH ×3 (08:32→20:57)
[2019-02-14] MEDS: POTASSIUM CHLORIDE 20 MEQ TABLET.ER. PO SCH ×2 (08:33→20:57)
[2019-02-14] MEDS: PHENobarbital 32.4 MG TABLET. PO SCH ×2 (08:33→20:58)
[2019-02-14] MEDS: PANTOPRAZOLE 40 MG TABLET. PO SCH (08:33)
[2019-02-14] MEDS: QUEtiapine 25 MG TABLET. PO SCH ×2 (08:33→20:59)
[2019-02-14] MEDS: CHOLECALCIFEROL (VITAMIN D3) 1,000 UNIT TABLET PO SCH (08:33)
[2019-02-14] MEDS: levETIRAcetam 500 MG TABLET PO SCH ×2 (08:33→20:59)
[2019-02-14] MEDS: FELBAMATE 400 MG TABLET PO SCH ×3 (08:33→20:58)
[2019-02-14] MEDS: AMOXICILLIN/K CLAV 875/125MG TABLET. PO SCH (08:33)
[2019-02-14] MEDS: LACTOBACILLUS RHAMNOSUS GG 1 CAPSULE. PO SCH ×2 (08:34→20:57)
[2019-02-14] MEDS: LACOSAMIDE 50 MG TABLET PO SCH ×2 (08:34→20:59)
[2019-02-14] MEDS: HALOPERIDOL LACT 5 MG/ML VIAL. IM SCH (09:00)
[2019-02-14] MEDS: VITS A & D/LANOLIN TOPICAL OINTMENT 42GM TUBE. TP PRN (09:00)
[2019-02-14 15:44] VITALS: BP 100/65
--- NOTE | 2019-02-14 18:00 | NUR ---
Patient was extremely resistive to medications at breakfast, taking multiple attempts before she would take her medications. After breakfast she was assisted to bed. She was up for lunch, and then again laid down after the meal, she stayed in bed all afternoon. Aides reported that patient continued to have loose stools, sample sent to lab per C. dif protocol. Aides also reported that patient's buttocks were looking much worse than previous with extensive excoriation. Will consult wound care as current regimen of applying A&D ointment at brief changes is not satisfactory. Will also discuss with MD at rounds. Patient was compliant with medications at dinnertime, then was agitated and calling out at staff afterwards. Will continue to monitor and report to oncoming shift.
[2019-02-14] MEDS: MIRTAZAPINE 15 MG TABLET PO SCH (20:57)
[2019-02-14] MEDS: ATORVASTATIN CALCIUM 10 MG TABLET. PO SCH (20:58)
[2019-02-14] MEDS: CETIRIZINE HCL 10 MG TABLET PO SCH (20:58)
--- NOTE | 2019-02-14 23:20 | PDOC ---
Exam Note: David Note: Please also refer to the separate dictated note~for this date of service dictated separately.~Patient seen individually. Discussed the patient with Nursing staff reviewed the chart.~Reviewed interim history and current functioning. Reviewed vital signs,~Labs/ Radiology~and current medications noted below. Continue current treatment with the changes noted in the dictated addendum note Assessment: Vital Signs/I&O: Vital Signs Date Time Temp Pulse Resp B/P (MAP) Pulse Ox O2 Delivery O2 Flow Rate FiO2 02/14/19 22:03 16 97 Room Air 02/14/19 15:44 97.4 68 100/65 (77) 02/10/19 05:52 3.0 I & O 02/13/19 02/13/19 02/14/19 15:00 23:00 07:00 Intake Total 240 ml 300 ml Balance 240 ml 300 ml Current Medications: Meds: Current Medications Medications (Trade) Dose Ordered Sig/Antoni Route PRN Reason Start Time Stop Time Status Last Admin Dose Admin Fluvoxamine Maleate (Luvox) 75 mg DAILY PO 02/14/19 09:00 02/14/19 08:33 I have reviewed the current psychotropics carefully including drug interactions. Risk benefit ratio favors no change other than as noted in my dictated progress note. Diagnosis: Problems: (1) Adjustment disorder with depressed mood (2) Bipolar affective, mixed (3) Impulse control disorder (4) Dementia, vascular, with delusions (5) Dementia, vascular, with depression (6) Bipolar affective, mixed, sev w/ psych HARVEY QUIJANO MD Feb 14, 2019 23:20
--- NOTE | 2019-02-15 01:26 | NUR ---
Nsg note: Patient was in her room at time of medication administration and assessments. Patient was very calm, cooperative and compliant. She took all her medications whole with some juice and said please and thank you. Patient talked about her son and grand kids. When getting ready for bed, buttock area was assessed and photos were taken. The area is much more excoriated, bleeding, raw, and beginning to open up. Wound consult scheduled tomorrow. A&D applied. No other notable behaviors at this time.
[2019-02-15] MEDS: LEVOTHYROXINE 50 MCG TABLET PO SCH (05:49)
[2019-02-15 06:01] VITALS: BP 102/72
[2019-02-15] MEDS: CALCIUM CARBONATE 500 MG TABLET PO SCH ×3 (08:00→14:31)
[2019-02-15] MEDS: NYSTATIN TOPICAL POWDER 15GM BOTTLE. TP SCH ×2 (08:36→20:01)
[2019-02-15] MEDS: LACTOBACILLUS RHAMNOSUS GG 1 CAPSULE. PO SCH ×3 (08:36→20:00)
[2019-02-15] MEDS: FERROUS SULFATE 325 MG TABLET. PO SCH ×3 (08:36→14:31)
[2019-02-15] MEDS: PANTOPRAZOLE 40 MG TABLET. PO SCH (08:37)
[2019-02-15] MEDS: QUEtiapine 25 MG TABLET. PO SCH ×2 (08:37→19:59)
[2019-02-15] MEDS: POTASSIUM CHLORIDE 20 MEQ TABLET.ER. PO SCH ×3 (08:37→19:59)
[2019-02-15] MEDS: levETIRAcetam 500 MG TABLET PO SCH ×2 (08:37→20:00)
[2019-02-15] MEDS: DIVALPROEX 125 MG CAP.SPRINK PO SCH ×2 (08:37→20:01)
[2019-02-15] MEDS: FELBAMATE 400 MG TABLET PO SCH ×3 (08:37→20:01)
[2019-02-15] MEDS: busPIRone 15 MG TABLET. PO SCH ×2 (08:37→14:31)
[2019-02-15] MEDS: CHOLECALCIFEROL (VITAMIN D3) 1,000 UNIT TABLET PO SCH (08:38)
[2019-02-15] MEDS: MAGNESIUM OXIDE 400 MG TABLET PO SCH ×4 (08:38→19:58)
[2019-02-15] MEDS: LIDOCAINE (700MG/PATCH) PATCH. TP SCH (08:38)
[2019-02-15] MEDS: PHENobarbital 32.4 MG TABLET. PO SCH ×2 (08:38→20:00)
[2019-02-15] MEDS: traMADol 50 MG TABLET PO SCH ×2 (08:38→19:59)
[2019-02-15] MEDS: LACOSAMIDE 50 MG TABLET PO SCH ×2 (08:38→20:00)
[2019-02-15] MEDS: HALOPERIDOL LACT 5 MG/ML VIAL. IM SCH (09:00)
[2019-02-15] MEDS: VITS A & D/LANOLIN TOPICAL OINTMENT 42GM TUBE. TP PRN ×4 (09:00→15:00)
[2019-02-15] MEDS: ZINC OXIDE 20% TOPICAL OINTMENT 28GM TUBE. TP PRN ×4 (09:00→15:00)
[2019-02-15 09:03] LABS: ALBUMIN 2.7 g/dL (3.4-5.0); ALBUMIN/GLOBULIN RATIO 0.7 (1.0-1.7); ALK PHOS 90 U/L (46-116); ALT (SGPT) 15 U/L (14-59); ANION GAP 8 (6-14); AST (SGOT) 13 U/L (15-37); BLOOD UREA NITROGEN 33 mg/dL (7-20); BUN/CREATININE RATIO 55 (6-20); CARBON DIOXIDE 28 mmol/L (21-32); CHLORIDE 108 mmol/L (98-107); CREATININE 0.6 mg/dL (0.6-1.0); GLUCOSE 92 mg/dL (70-99); POTASSIUM 4.2 mmol/L (3.5-5.1); SODIUM 144 mmol/L (136-145); TOTAL BILIRUBIN 0.1 mg/dL (0.2-1.0); TOTAL PROTEIN 6.8 g/dL (6.4-8.2)
[2019-02-15 09:11] LABS: VAL ACID 30 mcg/mL (50-100)
[2019-02-15 09:31] LABS: BASO # 0.1 x10^3/uL (0.0-0.2); BASO % 2 % (0-3); EOS # 0.6 x10^3/uL (0.0-0.7); EOS % 9 % (0-3); HEMATOCRIT 36.8 % (36.0-47.0); LYMPH # 2.5 x10^3/uL (1.0-4.8); LYMPH % 38 % (24-48); MEAN CORPUSCULAR HEMOGLOBIN 31 pg (25-35); MEAN CORPUSCULAR HGB CONC 33 g/dL (31-37); MEAN CORPUSCULAR VOLUME 96 fL (79-100); MONO # 0.6 x10^3/uL (0.0-1.1); MONO % 10 % (0-9); NEUT # 2.7 x10^3uL (1.8-7.7); NEUT % 42 % (31-73); PLATELET COUNT 314 x10^3/uL (140-400); RED BLOOD COUNT 3.84 x10^6/uL (3.50-5.40); RED CELL DISTRIBUTION WIDTH 14.1 % (11.5-14.5); WHITE BLOOD COUNT 6.5 x10^3/uL (4.0-11.0)
[2019-02-15 15:47] VITALS: BP 105/70
[2019-02-15] MEDS: ACETAMINOPHEN 325 MG TABLET PO PRN (15:52)
[2019-02-15] MEDS: traMADol 50 MG TABLET PO PRN (16:13)
--- NOTE | 2019-02-15 17:31 | NUR ---
Patient is in her room for medication and assessment. She is agitated, yelling loudly. After much encouragement, patient took her psych, anti-seizure and pain medications whole. She also took her afternoon meds whole after much encouragement. Did not eat any of her meals today. Was offered a PB&J with lunch and dinner. Initially refused, yelling "Get out of my room you ugly lady!". This resume writer informed patient that if she wanted to be left alone, she had to eat first. Finally finished the PB&J offered for both lunch and dinner. New order for Zinc oxide to applied to perianal area with each change. Patient has been left in bed to ease pressure on the area, left open to air with frequent cleaning.
[2019-02-15] MEDS: CETIRIZINE HCL 10 MG TABLET PO SCH (19:58)
[2019-02-15] MEDS: ATORVASTATIN CALCIUM 10 MG TABLET. PO SCH (19:59)
[2019-02-15] MEDS: MIRTAZAPINE 15 MG TABLET PO SCH (20:00)
--- NOTE | 2019-02-15 20:38 | PDOC ---
Exam Note: David Note: Please also refer to the separate dictated note~for this date of service dictated separately.~Patient seen individually. Discussed the patient with Nursing staff reviewed the chart.~Reviewed interim history and current functioning. Reviewed vital signs,~Labs/ Radiology~and current medications noted below. Continue current treatment with the changes noted in the dictated addendum note Assessment: Vital Signs/I&O: Vital Signs Date Time Temp Pulse Resp B/P (MAP) Pulse Ox O2 Delivery O2 Flow Rate FiO2 02/15/19 20:34 99 02/15/19 15:47 98.2 61 20 105/70 (82) 02/15/19 06:01 Room Air 02/10/19 05:52 3.0 I & O 02/14/19 02/14/19 02/15/19 15:00 23:00 07:00 Intake Total 720 ml 240 ml 240 ml Balance 720 ml 240 ml 240 ml Labs: Laboratory Tests Test 02/15/19 08:00 02/15/19 08:15 02/15/19 09:24 Sodium Level 144 mmol/L (136-145) Potassium Level 4.2 mmol/L (3.5-5.1) Chloride Level 108 mmol/L (98-107) H Carbon Dioxide Level 28 mmol/L (21-32) Anion Gap 8 (6-14) Blood Urea Nitrogen 33 mg/dL (7-20) H Creatinine 0.6 mg/dL (0.6-1.0) Estimated GFR (Cockcroft-Gault) 100.0 BUN/Creatinine Ratio 55 (6-20) H Glucose Level 92 mg/dL (70-99) Calcium Level 9.0 mg/dL (8.5-10.1) Total Bilirubin 0.1 mg/dL (0.2-1.0) L Aspartate Amino Transferase (AST) 13 U/L (15-37) L Alanine Aminotransferase (ALT) 15 U/L (14-59) Alkaline Phosphatase 90 U/L (46-116) Total Protein 6.8 g/dL (6.4-8.2) Albumin 2.7 g/dL (3.4-5.0) L Albumin/Globulin Ratio 0.7 (1.0-1.7) L Valproic Acid Level 30 mcg/mL (50-100) L Valproic Acid Last Dose Date 02/14/19 Valproic Acid Last Dose Time 2100 Ammonia 17 mcmol/L (11-34) White Blood Count 6.5 x10^3/uL (4.0-11.0) Red Blood Count 3.84 x10^6/uL (3.50-5.40) Hemoglobin 12.0 g/dL (12.0-15.5) Hematocrit 36.8 % (36.0-47.0) Mean Corpuscular Volume 96 fL (79-100) Mean Corpuscular Hemoglobin 31 pg (25-35) Mean Corpuscular Hemoglobin Concent 33 g/dL (31-37) Red Cell Distribution Width 14.1 % (11.5-14.5) Platelet Count 314 x10^3/uL (140-400) Neutrophils (%) (Auto) 42 % (31-73) Lymphocytes (%) (Auto) 38 % (24-48) Monocytes (%) (Auto) 10 % (0-9) H Eosinophils (%) (Auto) 9 % (0-3) H Basophils (%) (Auto) 2 % (0-3) Neutrophils # (Auto) 2.7 x10^3uL (1.8-7.7) Lymphocytes # (Auto) 2.5 x10^3/uL (1.0-4.8) Monocytes # (Auto) 0.6 x10^3/uL (0.0-1.1) Eosinophils # (Auto) 0.6 x10^3/uL (0.0-0.7) Basophils # (Auto) 0.1 x10^3/uL (0.0-0.2) Current Medications: Meds: Current Medications Medications (Trade) Dose Ordered Sig/Antoni Route PRN Reason Start Time Stop Time Status Last Admin Dose Admin Zinc Oxide (Zinc Oxide 20% Topical) 1 vale PRN Q4HRS PRN TP SKIN PROTECTION 02/15/19 07:00 02/15/19 15:00 Divalproex Sodium (Depakote Sprinkles) 375 mg BID PO 02/15/19 21:00 02/15/19 20:01 I have reviewed the current psychotropics carefully including drug interactions. Risk benefit ratio favors no change other than as noted in my dictated progress note. Diagnosis: Problems: (1) Severe major depression with psychotic features (2) Adjustment disorder with depressed mood (3) Bipolar affective, mixed (4) Impulse control disorder (5) Dementia, vascular, with delusions (6) Dementia, vascular, with depression (7) Bipolar affective, mixed, sev w/ psych HARVEY QUIJANO MD Feb 15, 2019 20:37
--- NOTE | 2019-02-15 23:22 | NUR ---
Pt located in her room all evening. Pt calm, pleasant and interactive with this nurse. Compliant with whole medications and HS snack. Very minimal yelling this evening.
[2019-02-16 05:20] VITALS: BP 99/63
[2019-02-16] MEDS: LEVOTHYROXINE 50 MCG TABLET PO SCH (05:54)
[2019-02-16] MEDS: PHENobarbital 32.4 MG TABLET. PO SCH ×2 (08:26→20:15)
[2019-02-16] MEDS: LACOSAMIDE 50 MG TABLET PO SCH ×2 (08:27→20:13)
[2019-02-16] MEDS: NYSTATIN TOPICAL POWDER 15GM BOTTLE. TP SCH ×2 (08:27→21:00)
[2019-02-16] MEDS: DIVALPROEX 125 MG CAP.SPRINK PO SCH ×2 (08:27→20:14)
[2019-02-16] MEDS: FELBAMATE 400 MG TABLET PO SCH ×3 (08:28→20:16)
[2019-02-16] MEDS: CHOLECALCIFEROL (VITAMIN D3) 1,000 UNIT TABLET PO SCH (08:28)
[2019-02-16] MEDS: QUEtiapine 25 MG TABLET. PO SCH ×2 (08:28→20:15)
[2019-02-16] MEDS: POTASSIUM CHLORIDE 20 MEQ TABLET.ER. PO SCH ×2 (08:28→20:15)
[2019-02-16] MEDS: levETIRAcetam 500 MG TABLET PO SCH ×2 (08:29→20:15)
[2019-02-16] MEDS: MAGNESIUM OXIDE 400 MG TABLET PO SCH ×3 (08:29→20:15)
[2019-02-16] MEDS: FERROUS SULFATE 325 MG TABLET. PO SCH ×2 (08:29→18:00)
[2019-02-16] MEDS: busPIRone 15 MG TABLET. PO SCH ×2 (08:29→17:00)
[2019-02-16] MEDS: LACTOBACILLUS RHAMNOSUS GG 1 CAPSULE. PO SCH ×2 (08:29→20:13)
[2019-02-16] MEDS: CALCIUM CARBONATE 500 MG TABLET PO SCH ×2 (08:29→17:00)
[2019-02-16] MEDS: traMADol 50 MG TABLET PO SCH ×2 (08:30→20:14)
[2019-02-16] MEDS: PANTOPRAZOLE 40 MG TABLET. PO SCH (08:30)
[2019-02-16] MEDS: LIDOCAINE (700MG/PATCH) PATCH. TP SCH (08:31)
[2019-02-16] MEDS: HALOPERIDOL LACT 5 MG/ML VIAL. IM SCH (09:00)
--- NOTE | 2019-02-16 11:11 | NUR ---
Nursing note: Pt in dining room for morning meds and assessment. She was compliant with taking her meds whole with a little bit of encouragement. Pt was calm and cooperative with assessment and has not yelled at staff. After breakfast, pt went back to lay in bed to help minimize pressure on perianal area. Will continue to monitor.
--- NOTE | 2019-02-16 16:00 | NUR ---
Nursing note: Pt's BP was 83/60 and has only had 200 ml of output today. Dr. Ackerman was notified. IV was started in L forearm. Labs were collected and 1 L NS was administered per Dr. Ackerman's order. Will continue to monitor.
[2019-02-16 16:25] VITALS: BP 83/60
[2019-02-16] MEDS ORDERED: IV NORMAL SALINE 1,000ML 1,000 ML IV ONE (17:00)
[2019-02-16 17:14] LABS: BASO # 0.1 x10^3/uL (0.0-0.2); BASO % 2 % (0-3); EOS # 0.5 x10^3/uL (0.0-0.7); EOS % 8 % (0-3); HEMATOCRIT 36.6 % (36.0-47.0); LYMPH # 2.6 x10^3/uL (1.0-4.8); LYMPH % 42 % (24-48); MEAN CORPUSCULAR HEMOGLOBIN 31 pg (25-35); MEAN CORPUSCULAR HGB CONC 33 g/dL (31-37); MEAN CORPUSCULAR VOLUME 96 fL (79-100); MONO # 0.7 x10^3/uL (0.0-1.1); MONO % 11 % (0-9); NEUT # 2.4 x10^3uL (1.8-7.7); NEUT % 38 % (31-73); PLATELET COUNT 349 x10^3/uL (140-400); RED BLOOD COUNT 3.83 x10^6/uL (3.50-5.40); RED CELL DISTRIBUTION WIDTH 14.4 % (11.5-14.5); WHITE BLOOD COUNT 6.3 x10^3/uL (4.0-11.0)
[2019-02-16 18:04] VITALS: BP 103/70
[2019-02-16 18:18] LABS: ALBUMIN 2.7 g/dL (3.4-5.0); ALBUMIN/GLOBULIN RATIO 0.7 (1.0-1.7); CALCIUM 8.6 mg/dL (8.5-10.1); CREATININE 0.6 mg/dL (0.6-1.0); POTASSIUM 4.2 mmol/L (3.5-5.1); TOTAL BILIRUBIN 0.2 mg/dL (0.2-1.0); TOTAL PROTEIN 6.6 g/dL (6.4-8.2)
[2019-02-16] MEDS: MIRTAZAPINE 15 MG TABLET PO SCH (20:14)
[2019-02-16] MEDS: CETIRIZINE HCL 10 MG TABLET PO SCH (20:15)
[2019-02-16] MEDS: ATORVASTATIN CALCIUM 10 MG TABLET. PO SCH (20:16)
--- NOTE | 2019-02-16 20:37 | PDOC ---
Exam Note: David Note: Please also refer to the separate dictated note~for this date of service dictated separately.~Patient seen individually. Discussed the patient with Nursing staff reviewed the chart.~Reviewed interim history and current functioning. Reviewed vital signs,~Labs/ Radiology~and current medications noted below. Continue current treatment with the changes noted in the dictated addendum note Assessment: Vital Signs/I&O: Vital Signs Date Time Temp Pulse Resp B/P (MAP) Pulse Ox O2 Delivery O2 Flow Rate FiO2 02/16/19 20:14 93 02/16/19 18:04 59 103/70 (81) 02/16/19 16:25 98.4 16 02/15/19 06:01 Room Air I & O 02/15/19 02/15/19 02/16/19 15:00 23:00 07:00 Intake Total 0 ml 120 ml Output Total 150 ml Balance 0 ml 120 ml -150 ml Labs: Laboratory Tests Test 02/16/19 16:50 02/16/19 17:43 White Blood Count 6.3 x10^3/uL (4.0-11.0) Red Blood Count 3.83 x10^6/uL (3.50-5.40) Hemoglobin 12.0 g/dL (12.0-15.5) Hematocrit 36.6 % (36.0-47.0) Mean Corpuscular Volume 96 fL (79-100) Mean Corpuscular Hemoglobin 31 pg (25-35) Mean Corpuscular Hemoglobin Concent 33 g/dL (31-37) Red Cell Distribution Width 14.4 % (11.5-14.5) Platelet Count 349 x10^3/uL (140-400) Neutrophils (%) (Auto) 38 % (31-73) Lymphocytes (%) (Auto) 42 % (24-48) Monocytes (%) (Auto) 11 % (0-9) H Eosinophils (%) (Auto) 8 % (0-3) H Basophils (%) (Auto) 2 % (0-3) Neutrophils # (Auto) 2.4 x10^3uL (1.8-7.7) Lymphocytes # (Auto) 2.6 x10^3/uL (1.0-4.8) Monocytes # (Auto) 0.7 x10^3/uL (0.0-1.1) Eosinophils # (Auto) 0.5 x10^3/uL (0.0-0.7) Basophils # (Auto) 0.1 x10^3/uL (0.0-0.2) Sodium Level 143 mmol/L (136-145) Potassium Level 4.2 mmol/L (3.5-5.1) Chloride Level 108 mmol/L (98-107) H Carbon Dioxide Level 29 mmol/L (21-32) Anion Gap 6 (6-14) Blood Urea Nitrogen 31 mg/dL (7-20) H Creatinine 0.6 mg/dL (0.6-1.0) Estimated GFR (Cockcroft-Gault) 100.0 BUN/Creatinine Ratio 52 (6-20) H Glucose Level 93 mg/dL (70-99) Lactic Acid Level 1.2 mmol/L (0.4-2.0) Calcium Level 8.6 mg/dL (8.5-10.1) Total Bilirubin 0.2 mg/dL (0.2-1.0) Aspartate Amino Transferase (AST) 13 U/L (15-37) L Alanine Aminotransferase (ALT) 17 U/L (14-59) Alkaline Phosphatase 89 U/L (46-116) Total Protein 6.6 g/dL (6.4-8.2) Albumin 2.7 g/dL (3.4-5.0) L Albumin/Globulin Ratio 0.7 (1.0-1.7) L Current Medications: Meds: Current Medications Medications (Trade) Dose Ordered Sig/Antoni Route PRN Reason Start Time Stop Time Status Last Admin Dose Admin Divalproex Sodium (Depakote Sprinkles) 375 mg BID PO 02/15/19 21:00 02/16/19 20:14 Sodium Chloride 1,000 ml @ 1,000 mls/hr 1X ONCE IV 02/16/19 17:00 02/16/19 17:59 DC 02/16/19 15:32 I have reviewed the current psychotropics carefully including drug interactions. Risk benefit ratio favors no change other than as noted in my dictated progress note. Diagnosis: Problems: (1) Severe major depression with psychotic features (2) Adjustment disorder with depressed mood (3) Bipolar affective, mixed (4) Impulse control disorder (5) Dementia, vascular, with delusions (6) Dementia, vascular, with depression (7) Bipolar affective, mixed, sev w/ psych HARVEY QUIJANO MD Feb 16, 2019 20:36
--- NOTE | 2019-02-16 22:44 | PN ---
DATE: 02/13/2019 PSYCHIATRIC PROGRESS NOTE This late entry 02/13/2019 covers the elements not covered in my initial note. SUBJECTIVE: Per Aaron RN, the patient slept 6 hours previous night. She has been yelling at staff and other patients "mean, hateful at night" per nursing report. She slept until noon, hateful in the evening, resistive to medications, ate 25% of lunch and then went back to bed. REVIEW OF SYSTEMS: Ambulation impaired, in wheelchair. No CV, , pulmonary, eye system symptoms on review. MENTAL STATUS EXAM: Oriented to herself and situation. Speech has some latency, coherent. Abstraction fair, computation impaired, language function intact, attention span short. Mood and affect remains labile. LABORATORY DATA: Reviewed. IMPRESSION: Unchanged from initial note. PLAN: Gradually increase the Luvox from 50 mg a day in 3 days to 75 mg a day. Rest unchanged for now. HARVEY QUIJANO MD DR: LOYD/eboni JOB#: [id number] / [id number]
--- NOTE | 2019-02-16 23:15 | PN ---
DATE: 02/14/2019 PSYCHIATRIC PROGRESS NOTE This late entry 02/14/2019 covers elements not covered in my initial note. SUBJECTIVE: I met with the patient in the evening. The patient slept 7-1/4 hours previous night. She was having diarrhea and lactulose has been held because she has some excoriations on the bottom. Overall, less agitated. REVIEW OF SYSTEMS: Ambulation impaired, in wheelchair. No CV, , pulmonary, eye system symptoms on review. MENTAL STATUS EXAM: Oriented to herself and situation. Speech is coherent, has some latency. Abstraction fair, computation impaired, language function intact. She was getting agitated, calling out for the nursing staff to make her bed and she was seated in her wheelchair outside her room. I took her back in her room, made her bed for her. She was very appreciative. No active suicidal or homicidal ideation. LABORATORY DATA: Reviewed. IMPRESSION: Bipolar 1 disorder, mixed with psychotic features; mild cognitive impairment; anxiety disorder, unspecified. Rest unchanged for now. PLAN: No change from initial note. Check labs morning of 02/15/2018. MAN Luis QUIJANO MD DR: LOYD/eboni JOB#: [id number] / [id number]
--- NOTE | 2019-02-16 23:34 | PN ---
DATE: 02/15/2019 PSYCHIATRIC PROGRESS NOTE This late entry 02/15/2019 covers elements not covered in my initial note. SUBJECTIVE: I met with the patient in the evening. Lactulose has been stopped consequent to diarrhea. Valproic acid level is 30, subtherapeutic. Oral intake is poor, takes medications with a lot of cajoling per nursing staff. She was yelling in the evening for her medications. We would be getting a Licona placed in the evening per Dr. Ackerman. REVIEW OF SYSTEMS: Ambulation impaired, in wheelchair. No CV, , pulmonary, eye system symptoms on review. MENTAL STATUS EXAM: Oriented to herself and situation. Speech coherent, has some latency. Abstraction fair, computation impaired, language function intact, attention span short. Mood and affect somewhat anxious and labile. LABORATORY DATA: Reviewed. IMPRESSION: Unchanged from initial note. PLAN: Increase Depakote from 250 b.i.d. to 375 b.i.d. Check CBC, CMP, valproic acid level, ammonia level in 3 days. Rest unchanged for now. MAN Luis QUIJANO MD DR: LOYD/eboni JOB#: [id number] / [id number]
[2019-02-17 05:40] VITALS: BP 95/69
[2019-02-17] MEDS: LEVOTHYROXINE 50 MCG TABLET PO SCH (06:05)
--- NOTE | 2019-02-17 06:24 | NUR ---
Nursing Note Skin to anal area seems to be red from incontinence issues, red and blotchy surface looking, A&D applied.
[2019-02-17] MEDS: PHENobarbital 32.4 MG TABLET. PO SCH ×2 (08:41→20:16)
[2019-02-17] MEDS: QUEtiapine 25 MG TABLET. PO SCH ×2 (08:41→20:17)
[2019-02-17] MEDS: DIVALPROEX 125 MG CAP.SPRINK PO SCH ×2 (08:41→20:16)
[2019-02-17] MEDS: LACTOBACILLUS RHAMNOSUS GG 1 CAPSULE. PO SCH ×2 (08:42→20:15)
[2019-02-17] MEDS: FERROUS SULFATE 325 MG TABLET. PO SCH ×3 (08:42→18:00)
[2019-02-17] MEDS: traMADol 50 MG TABLET PO SCH ×2 (08:42→20:17)
[2019-02-17] MEDS: LACOSAMIDE 50 MG TABLET PO SCH ×2 (08:42→20:17)
[2019-02-17] MEDS: levETIRAcetam 500 MG TABLET PO SCH ×2 (08:42→20:17)
[2019-02-17] MEDS: PANTOPRAZOLE 40 MG TABLET. PO SCH (08:43)
[2019-02-17] MEDS: busPIRone 15 MG TABLET. PO SCH ×2 (08:43→17:24)
[2019-02-17] MEDS: FELBAMATE 400 MG TABLET PO SCH ×3 (08:43→20:15)
[2019-02-17] MEDS: CHOLECALCIFEROL (VITAMIN D3) 1,000 UNIT TABLET PO SCH (08:43)
[2019-02-17] MEDS: MAGNESIUM OXIDE 400 MG TABLET PO SCH ×3 (08:43→20:15)
[2019-02-17] MEDS: POTASSIUM CHLORIDE 20 MEQ TABLET.ER. PO SCH ×2 (08:43→20:16)
[2019-02-17] MEDS: CALCIUM CARBONATE 500 MG TABLET PO SCH ×3 (08:43→17:23)
[2019-02-17] MEDS: NYSTATIN TOPICAL POWDER 15GM BOTTLE. TP SCH ×2 (08:44→20:18)
[2019-02-17] MEDS: LIDOCAINE (700MG/PATCH) PATCH. TP SCH (09:00)
[2019-02-17] MEDS: ZINC OXIDE 20% TOPICAL OINTMENT 28GM TUBE. TP PRN ×2 (09:44→14:08)
[2019-02-17] MEDS: VITS A & D/LANOLIN TOPICAL OINTMENT 42GM TUBE. TP PRN ×2 (09:45→14:08)
--- NOTE | 2019-02-17 11:01 | NUR ---
Nursing note: Pt in dining room for morning meds and assessment. She was compliant with taking them whole and cooperative with her assessment. She was preoccupied with wanting to go back to her room, but able to be redirected at that time. Pt was encouraged to go down to the day room this morning, but became angry and demanded to go to her room to lay down. Pt is currently in the secured hallway. Will continue to monitor.
[2019-02-17 16:19] VITALS: BP 88/59
[2019-02-17] MEDS: HALOPERIDOL LACT 5 MG/ML VIAL. IM SCH (18:01)
--- NOTE | 2019-02-17 18:32 | NUR ---
Nursing note: Pt became disruptive in dining room and was refusing to eat and to take her meds. Pt was beginning to agitate other pts in dining room so she was moved to the [facility]. Scheduled haldol and ativan injections were given at this time. Will continue to monitor.
[2019-02-17] MEDS: CETIRIZINE HCL 10 MG TABLET PO SCH (20:15)
[2019-02-17] MEDS: ATORVASTATIN CALCIUM 10 MG TABLET. PO SCH (20:17)
[2019-02-17] MEDS: MIRTAZAPINE 15 MG TABLET PO SCH (20:17)
--- NOTE | 2019-02-17 20:41 | PDOC ---
Exam Note: David Note: Please also refer to the separate dictated note~for this date of service dictated separately.~Patient seen individually. Discussed the patient with Nursing staff reviewed the chart.~Reviewed interim history and current functioning. Reviewed vital signs,~Labs/ Radiology~and current medications noted below. Continue current treatment with the changes noted in the dictated addendum note Assessment: Vital Signs/I&O: Vital Signs Date Time Temp Pulse Resp B/P (MAP) Pulse Ox O2 Delivery O2 Flow Rate FiO2 02/17/19 20:17 16 94 Room Air 02/17/19 16:19 98.2 64 88/59 (69) I & O 02/16/19 02/16/19 02/17/19 15:00 23:00 07:00 Intake Total 200 ml 60 ml Output Total 600 ml Balance 200 ml 60 ml -600 ml Current Medications: I have reviewed the current psychotropics carefully including drug interactions. Risk benefit ratio favors no change other than as noted in my dictated progress note. Diagnosis: Problems: (1) Severe major depression with psychotic features (2) Adjustment disorder with depressed mood (3) Bipolar affective, mixed (4) Impulse control disorder (5) Dementia, vascular, with delusions (6) Dementia, vascular, with depression (7) Bipolar affective, mixed, sev w/ psych HARVEY QUIJANO MD Feb 17, 2019 20:40
--- NOTE | 2019-02-17 22:05 | NUR ---
Nsg Note: Patient was in day room at time of assessment. Patient was yelling, being combative and trying to block the door. Patient was moved to the hallway where she continued to yell. Patient agreed to take medications whole if she could go to bed afterwards. Patient was calm, compliant and cooperative at that point. No other notable behaviors at this time.
[2019-02-18 05:27] VITALS: BP 102/70
[2019-02-18] MEDS: LEVOTHYROXINE 50 MCG TABLET PO SCH (05:35)
[2019-02-18] MEDS: HALOPERIDOL LACT 5 MG/ML VIAL. IM SCH (09:00)
[2019-02-18] MEDS: LIDOCAINE (700MG/PATCH) PATCH. TP SCH (09:06)
[2019-02-18] MEDS: NYSTATIN TOPICAL POWDER 15GM BOTTLE. TP SCH ×2 (09:06→20:51)
[2019-02-18] MEDS: LACTOBACILLUS RHAMNOSUS GG 1 CAPSULE. PO SCH ×2 (09:07→20:50)
[2019-02-18] MEDS: traMADol 50 MG TABLET PO SCH ×2 (09:07→20:50)
[2019-02-18] MEDS: POTASSIUM CHLORIDE 20 MEQ TABLET.ER. PO SCH ×2 (09:07→20:50)
[2019-02-18] MEDS: DIVALPROEX 125 MG CAP.SPRINK PO SCH ×2 (09:07→20:51)
[2019-02-18] MEDS: PANTOPRAZOLE 40 MG TABLET. PO SCH (09:07)
[2019-02-18] MEDS: CALCIUM CARBONATE 500 MG TABLET PO SCH ×2 (09:08→17:06)
[2019-02-18] MEDS: levETIRAcetam 500 MG TABLET PO SCH ×2 (09:08→20:50)
[2019-02-18] MEDS: MAGNESIUM OXIDE 400 MG TABLET PO SCH ×3 (09:08→20:50)
[2019-02-18] MEDS: CHOLECALCIFEROL (VITAMIN D3) 1,000 UNIT TABLET PO SCH (09:08)
[2019-02-18] MEDS: QUEtiapine 25 MG TABLET. PO SCH ×2 (09:08→20:50)
[2019-02-18] MEDS: FERROUS SULFATE 325 MG TABLET. PO SCH ×2 (09:17→17:06)
[2019-02-18] MEDS: busPIRone 15 MG TABLET. PO SCH ×2 (09:17→17:06)
[2019-02-18] MEDS: FELBAMATE 400 MG TABLET PO SCH ×3 (09:17→20:50)
[2019-02-18] MEDS: LACOSAMIDE 50 MG TABLET PO SCH ×2 (09:17→20:50)
[2019-02-18] MEDS: PHENobarbital 32.4 MG TABLET. PO SCH ×2 (09:17→20:50)
--- NOTE | 2019-02-18 12:06 | NUR ---
Patient in day room for morning medications and assessment. Patient was compliant with medications crushed in one bite of vanilla ice cream. Patient was angry during the time of assessment and wanting to go back to her room, but able to be redirected at that time. Will continue to monitor.
[2019-02-18 15:55] VITALS: BP 102/65
--- NOTE | 2019-02-18 20:45 | PDOC ---
Exam Note: David Note: Please also refer to the separate dictated note~for this date of service dictated separately.~Patient seen individually. Discussed the patient with Nursing staff reviewed the chart.~Reviewed interim history and current functioning. Reviewed vital signs,~Labs/ Radiology~and current medications noted below. Continue current treatment with the changes noted in the dictated addendum note Assessment: Vital Signs/I&O: Vital Signs Date Time Temp Pulse Resp B/P (MAP) Pulse Ox O2 Delivery O2 Flow Rate FiO2 02/18/19 15:55 98.3 63 16 102/65 (77) 95 02/17/19 21:25 Room Air I & O 02/17/19 02/17/19 02/18/19 15:00 23:00 07:00 Intake Total 720 ml 240 ml 100 ml Output Total 800 ml Balance 720 ml 240 ml -700 ml Current Medications: I have reviewed the current psychotropics carefully including drug interactions. Risk benefit ratio favors no change other than as noted in my dictated progress note. Diagnosis: Problems: (1) Severe major depression with psychotic features (2) Adjustment disorder with depressed mood (3) Bipolar affective, mixed (4) Impulse control disorder (5) Dementia, vascular, with delusions (6) Dementia, vascular, with depression (7) Bipolar affective, mixed, sev w/ psych HARVEY QUIJANO MD Feb 18, 2019 20:45
[2019-02-18] MEDS: ATORVASTATIN CALCIUM 10 MG TABLET. PO SCH (20:50)
[2019-02-18] MEDS: CETIRIZINE HCL 10 MG TABLET PO SCH (20:50)
[2019-02-18] MEDS: MIRTAZAPINE 15 MG TABLET PO SCH (21:00)
--- NOTE | 2019-02-19 04:02 | NUR ---
Kai Note: Patient was in her room at time of medication administration and assessments. Patient was calm, cooperative and compliant. Patient went to sleep shortly after this interaction. No other notable behaviors at this time. Addendum: 02/19/19 at 0553 by AURELIO SKAGGS RN Patient in day room this morning and very cranky, yelling, combative towards staff. Refusing to open her mouth for any medications.
[2019-02-19] MEDS: LEVOTHYROXINE 50 MCG TABLET PO SCH (05:52)
[2019-02-19 06:04] VITALS: BP 102/78
[2019-02-19] MEDS: ACETAMINOPHEN 325 MG TABLET PO PRN (06:22)
[2019-02-19 07:59] LABS: BASO # 0.1 x10^3/uL (0.0-0.2); BASO % 1 % (0-3); EOS # 0.6 x10^3/uL (0.0-0.7); EOS % 8 % (0-3); HEMATOCRIT 36.4 % (36.0-47.0); LYMPH # 1.4 x10^3/uL (1.0-4.8); LYMPH % 20 % (24-48); MEAN CORPUSCULAR HEMOGLOBIN 32 pg (25-35); MEAN CORPUSCULAR HGB CONC 33 g/dL (31-37); MEAN CORPUSCULAR VOLUME 96 fL (79-100); MONO # 0.8 x10^3/uL (0.0-1.1); MONO % 12 % (0-9); NEUT # 4.1 x10^3uL (1.8-7.7); NEUT % 59 % (31-73); PLATELET COUNT 280 x10^3/uL (140-400); RED CELL DISTRIBUTION WIDTH 14.2 % (11.5-14.5)
[2019-02-19 08:02] LABS: ALBUMIN 2.9 g/dL (3.4-5.0); ALBUMIN/GLOBULIN RATIO 0.7 (1.0-1.7); ALK PHOS 95 U/L (46-116); ALT (SGPT) 14 U/L (14-59); ANION GAP 9 (6-14); AST (SGOT) 12 U/L (15-37); BLOOD UREA NITROGEN 26 mg/dL (7-20); BUN/CREATININE RATIO 37 (6-20); CARBON DIOXIDE 28 mmol/L (21-32); CHLORIDE 105 mmol/L (98-107); CREATININE 0.7 mg/dL (0.6-1.0); GFR 83.7; GLUCOSE 100 mg/dL (70-99); POTASSIUM 4.2 mmol/L (3.5-5.1); SODIUM 142 mmol/L (136-145); TOTAL BILIRUBIN 0.2 mg/dL (0.2-1.0); TOTAL PROTEIN 7.1 g/dL (6.4-8.2)
[2019-02-19 08:08] LABS: VAL ACID 50 mcg/mL (50-100)
[2019-02-19] MEDS: NYSTATIN TOPICAL POWDER 15GM BOTTLE. TP SCH ×2 (08:22→19:49)
[2019-02-19] MEDS: LACOSAMIDE 50 MG TABLET PO SCH ×2 (08:22→19:47)
[2019-02-19] MEDS: PHENobarbital 32.4 MG TABLET. PO SCH ×2 (08:23→19:47)
[2019-02-19] MEDS: FELBAMATE 400 MG TABLET PO SCH ×3 (08:23→19:47)
[2019-02-19] MEDS: levETIRAcetam 500 MG TABLET PO SCH ×2 (08:23→19:48)
[2019-02-19] MEDS: LIDOCAINE (700MG/PATCH) PATCH. TP SCH (08:24)
[2019-02-19] MEDS: traMADol 50 MG TABLET PO SCH ×2 (08:24→19:47)
[2019-02-19] MEDS: DIVALPROEX 125 MG CAP.SPRINK PO SCH ×2 (08:24→19:48)
[2019-02-19] MEDS: CHOLECALCIFEROL (VITAMIN D3) 1,000 UNIT TABLET PO SCH (08:24)
[2019-02-19] MEDS: CALCIUM CARBONATE 500 MG TABLET PO SCH ×2 (08:25→17:21)
[2019-02-19] MEDS: POTASSIUM CHLORIDE 20 MEQ TABLET.ER. PO SCH ×2 (08:25→19:48)
[2019-02-19] MEDS: QUEtiapine 25 MG TABLET. PO SCH ×2 (08:25→19:47)
[2019-02-19] MEDS: PANTOPRAZOLE 40 MG TABLET. PO SCH (08:25)
[2019-02-19] MEDS: busPIRone 15 MG TABLET. PO SCH ×2 (08:25→17:21)
[2019-02-19] MEDS: MAGNESIUM OXIDE 400 MG TABLET PO SCH ×3 (08:26→19:48)
[2019-02-19] MEDS: LACTOBACILLUS RHAMNOSUS GG 1 CAPSULE. PO SCH ×2 (08:26→19:48)
[2019-02-19] MEDS: FERROUS SULFATE 325 MG TABLET. PO SCH ×2 (08:26→17:21)
--- NOTE | 2019-02-19 10:14 | NUR ---
WEEKLY ACTIVITY THERAPY NOTE Date of Admission: 02/05/2019; DC to ICU 02/01/2019 Date of AT Assessment: 02/05/2019 Goal aimed: to increase engagement and socialization Initial Goal: Pt. will participate in at least two activity therapy groups per week. Weekly progress towards goal: did not achieve, 0/2 Group participation level: zero Weekly highlights: Behaviors observed: not around day room at all this week, often in secured hallway yelling out or sleeping Plan: change goal to: Pt. will participate in at least three individual Activity Therapy sessions before discharge. Beneficial adaptations: individual engagement, possibly word searches
[2019-02-19 13:12] LABS: % ATYL 7 % (0-0); % BANDS 8 % (0-9); % EOS 8 % (0-5); % LYMPHS 12 % (24-48); % MONOS 12 % (0-10); % SEGS 53 % (35-66)
[2019-02-19 13:17] LABS: PLT ESTIMATE ADEQUATE (ADEQUATE)
--- NOTE | 2019-02-19 13:27 | PN ---
DATE: 02/16/2019 PSYCHIATRIC PROGRESS NOTE This late entry 02/16/2019 covers the elements not covered in my initial note. SUBJECTIVE: I met with the patient in the evening of 02/16/2019. Per LION Chau, the patient has been up all day, compliant with medications, but somewhat sleepy rest of the day. At 4:00 p.m., BP was low at 80/50. She was fighting getting an IV. She ate half of her breakfast, nothing for lunch, slept 6 hours previous night, had 200 mL of urine. We will defer to Dr. Ackerman. REVIEW OF SYSTEMS: Ambulation impaired, in wheelchair. No CV, , pulmonary, eye system symptoms on review. MENTAL STATUS EXAM: Oriented to herself and situation. Speech can be loud, repetitive at times. Abstraction fair, computation impaired, language function intact. Mood and affect remain somewhat depressed, anxious, paranoid type. The patient heard voice. LABORATORY DATA: Reviewed. IMPRESSION: Unchanged from initial note. PLAN: No change from initial note. Encourage p.o. intake food, fluids. Rest defer to Dr. Ackerman from medical standpoint. MAN Luis QUIJANO MD DR: LOYD/eboni JOB#: [id number] / [id number]
--- NOTE | 2019-02-19 13:39 | PN ---
DATE: 02/17/2019 PSYCHIATRIC PROGRESS NOTE This late entry, 02/17, covers elements not covered in my initial note. SUBJECTIVE: The patient slept 8 hours previous night. Per nursing report, she did alright most of the day, took her a.m. meds and p.m. meds, wanted out of bed, demanding wanting getting back to bed, refused supper. BuSpar was given, crushed. She did receive her Haldol, Ativan IM in the morning. Labs due on the . REVIEW OF SYSTEMS: Ambulation impaired, in wheelchair. No CV, , pulmonary, eye, ENT system symptoms on review. Reliability poor. MENTAL STATUS EXAMINATION: Oriented to herself and situation. Speech coherent, rapid, loud at times. Abstraction fair, computation impaired, language function intact, attention span short. Mood and affect somewhat labile. LABORATORY DATA: Reviewed. IMPRESSION: Unchanged from initial note. PLAN: No change from initial note. HARVEY QUIJANO MD DR: LOYD/eboni JOB#: [id number] / [id number]
[2019-02-19] MEDS: VITS A & D/LANOLIN TOPICAL OINTMENT 42GM TUBE. TP PRN (15:40)
[2019-02-19] MEDS: ZINC OXIDE 20% TOPICAL OINTMENT 28GM TUBE. TP PRN (15:40)
[2019-02-19 16:21] VITALS: BP 93/66
--- NOTE | 2019-02-19 16:24 | NUR ---
Nursing note: Pt in dining room this morning for meds and assessment. Pt was compliant with taking her meds whole. She was pleasant and cooperative with her assessment. Pt was in the day room all morning. She is currently sleeping in her room. Pt has not been agitated or yelled at staff this shift. Will continue to monitor.
--- NOTE | 2019-02-19 16:29 | NUR ---
patient still has substantial skin excoriation and redness in her groin area, below coccyx and around rectum Livan is to be continued at this time. Addendum: 02/19/19 at 1631 by OZZY REYES RN Per Dr. Tyron martin.
--- NOTE | 2019-02-19 17:37 | NUR ---
WEEKLY NOTE: Pt is eating roughly 50% of meals and sleeping on average 6 hours per night. Pt is mostly medication compliant but does have disruptive and at times combative behaviors towards staff. Pt likes to all people names and insists on laying in bed all day. Pt will have her IM Ativan decreased to .25mg and potentially have her Haldol looked at as well. At this time, ELOS is for the end of next week.
[2019-02-19] MEDS: ATORVASTATIN CALCIUM 10 MG TABLET. PO SCH (19:47)
[2019-02-19] MEDS: MIRTAZAPINE 15 MG TABLET PO SCH (19:48)
[2019-02-19] MEDS: CETIRIZINE HCL 10 MG TABLET PO SCH (19:48)
--- NOTE | 2019-02-19 20:58 | PDOC ---
Exam Note: Advid Note: Please also refer to the separate dictated note~for this date of service dictated separately.~Patient seen individually. Discussed the patient with Nursing staff reviewed the chart.~Reviewed interim history and current functioning. Reviewed vital signs,~Labs/ Radiology~and current medications noted below. Continue current treatment with the changes noted in the dictated addendum note Assessment: Vital Signs/I&O: Vital Signs Date Time Temp Pulse Resp B/P (MAP) Pulse Ox O2 Delivery O2 Flow Rate FiO2 02/19/19 19:47 95 02/19/19 16:21 97.4 64 14 93/66 (75) 02/18/19 21:55 Room Air I & O 02/18/19 02/18/19 02/19/19 15:00 23:00 07:00 Intake Total 120 ml 300 ml Balance 120 ml 300 ml Labs: Laboratory Tests Test 02/19/19 07:36 White Blood Count 7.0 x10^3/uL (4.0-11.0) Red Blood Count 3.80 x10^6/uL (3.50-5.40) Hemoglobin 12.0 g/dL (12.0-15.5) Hematocrit 36.4 % (36.0-47.0) Mean Corpuscular Volume 96 fL (79-100) Mean Corpuscular Hemoglobin 32 pg (25-35) Mean Corpuscular Hemoglobin Concent 33 g/dL (31-37) Red Cell Distribution Width 14.2 % (11.5-14.5) Platelet Count 280 x10^3/uL (140-400) Neutrophils (%) (Auto) 59 % (31-73) Lymphocytes (%) (Auto) 20 % (24-48) L Monocytes (%) (Auto) 12 % (0-9) H Eosinophils (%) (Auto) 8 % (0-3) H Basophils (%) (Auto) 1 % (0-3) Neutrophils # (Auto) 4.1 x10^3uL (1.8-7.7) Lymphocytes # (Auto) 1.4 x10^3/uL (1.0-4.8) Monocytes # (Auto) 0.8 x10^3/uL (0.0-1.1) Eosinophils # (Auto) 0.6 x10^3/uL (0.0-0.7) Basophils # (Auto) 0.1 x10^3/uL (0.0-0.2) Segmented Neutrophils % 53 % (35-66) Band Neutrophils % 8 % (0-9) Lymphocytes % 12 % (24-48) L Atypical Lymphocytes % (Manual) 7 % (0-0) H Monocytes % 12 % (0-10) H Eosinophils % 8 % (0-5) H Platelet Estimate Adequate (ADEQUATE) Sodium Level 142 mmol/L (136-145) Potassium Level 4.2 mmol/L (3.5-5.1) Chloride Level 105 mmol/L (98-107) Carbon Dioxide Level 28 mmol/L (21-32) Anion Gap 9 (6-14) Blood Urea Nitrogen 26 mg/dL (7-20) H Creatinine 0.7 mg/dL (0.6-1.0) Estimated GFR (Cockcroft-Gault) 83.7 BUN/Creatinine Ratio 37 (6-20) H Glucose Level 100 mg/dL (70-99) H Calcium Level 9.0 mg/dL (8.5-10.1) Total Bilirubin 0.2 mg/dL (0.2-1.0) Aspartate Amino Transferase (AST) 12 U/L (15-37) L Alanine Aminotransferase (ALT) 14 U/L (14-59) Alkaline Phosphatase 95 U/L (46-116) Ammonia 23 mcmol/L (11-34) Total Protein 7.1 g/dL (6.4-8.2) Albumin 2.9 g/dL (3.4-5.0) L Albumin/Globulin Ratio 0.7 (1.0-1.7) L Valproic Acid Level 50 mcg/mL (50-100) Valproic Acid Last Dose Date 02/18/19 Valproic Acid Last Dose Time 2100 Current Medications: I have reviewed the current psychotropics carefully including drug interactions. Risk benefit ratio favors no change other than as noted in my dictated progress note. Diagnosis: Problems: (1) Severe major depression with psychotic features (2) Adjustment disorder with depressed mood (3) Bipolar affective, mixed (4) Impulse control disorder (5) Dementia, vascular, with delusions (6) Dementia, vascular, with depression (7) Bipolar affective, mixed, sev w/ psych HARVEY QUIJANO MD Feb 19, 2019 20:58
--- NOTE | 2019-02-20 01:30 | NUR ---
Nursing Note Pt states "Get outta my face, Im not taking meds you are stupid, meds are stupid, I want to go to bed, and Im not taking meds, I don't want to go to bed, go away." Firmly encouraged her to take her meds or she could stay up in her chair indefinitely. She was compliant after this.
[2019-02-20 06:06] VITALS: BP 103/69
[2019-02-20] MEDS: LEVOTHYROXINE 50 MCG TABLET PO SCH (06:12)
[2019-02-20] MEDS: LIDOCAINE (700MG/PATCH) PATCH. TP SCH (08:31)
[2019-02-20] MEDS: FELBAMATE 400 MG TABLET PO SCH ×3 (08:31→20:49)
[2019-02-20] MEDS: LACOSAMIDE 50 MG TABLET PO SCH ×2 (08:33→20:49)
[2019-02-20] MEDS: MAGNESIUM OXIDE 400 MG TABLET PO SCH ×3 (08:33→20:49)
[2019-02-20] MEDS: PANTOPRAZOLE 40 MG TABLET. PO SCH (08:33)
[2019-02-20] MEDS: busPIRone 15 MG TABLET. PO SCH ×2 (08:33→16:05)
[2019-02-20] MEDS: POTASSIUM CHLORIDE 20 MEQ TABLET.ER. PO SCH ×2 (08:33→20:49)
[2019-02-20] MEDS: LACTOBACILLUS RHAMNOSUS GG 1 CAPSULE. PO SCH ×2 (08:34→20:48)
[2019-02-20] MEDS: PHENobarbital 32.4 MG TABLET. PO SCH ×2 (08:34→20:48)
[2019-02-20] MEDS: DIVALPROEX 125 MG CAP.SPRINK PO SCH ×2 (08:34→20:50)
[2019-02-20] MEDS: CHOLECALCIFEROL (VITAMIN D3) 1,000 UNIT TABLET PO SCH (08:34)
[2019-02-20] MEDS: CALCIUM CARBONATE 500 MG TABLET PO SCH ×2 (08:34→16:06)
[2019-02-20] MEDS: FERROUS SULFATE 325 MG TABLET. PO SCH ×2 (08:34→16:05)
[2019-02-20] MEDS: levETIRAcetam 500 MG TABLET PO SCH ×2 (08:34→20:49)
[2019-02-20] MEDS: QUEtiapine 25 MG TABLET. PO SCH ×2 (08:35→20:50)
[2019-02-20] MEDS: traMADol 50 MG TABLET PO SCH ×2 (08:35→20:48)
[2019-02-20] MEDS: NYSTATIN TOPICAL POWDER 15GM BOTTLE. TP SCH ×2 (08:35→20:49)
[2019-02-20 16:08] VITALS: BP 95/66
--- NOTE | 2019-02-20 16:57 | NUR ---
Patient is alert and oriented to self, cooperated with medication administration in AM and after lunch, refused meds and spit meds back out at this nurse during 1400 med pass stating " you are stupid! i don't have to take this , You are dumb and i hate you!" Patient is able to make wants and needs known at times, patient is now laying bed refusing to get up for dinner this shift.
--- NOTE | 2019-02-20 20:33 | PDOC ---
Exam Note: David Note: Please also refer to the separate dictated note~for this date of service dictated separately.~Patient seen individually. Discussed the patient with Nursing staff reviewed the chart.~Reviewed interim history and current functioning. Reviewed vital signs,~Labs/ Radiology~and current medications noted below. Continue current treatment with the changes noted in the dictated addendum note Assessment: Vital Signs/I&O: Vital Signs Date Time Temp Pulse Resp B/P (MAP) Pulse Ox O2 Delivery O2 Flow Rate FiO2 02/20/19 16:08 98.2 89 16 95/66 (76) 95 02/18/19 21:55 Room Air I & O 02/19/19 02/19/19 02/20/19 15:00 23:00 07:00 Intake Total 720 ml 240 ml 240 ml Balance 720 ml 240 ml 240 ml Current Medications: I have reviewed the current psychotropics carefully including drug interactions. Risk benefit ratio favors no change other than as noted in my dictated progress note. Diagnosis: Problems: (1) Severe major depression with psychotic features (2) Adjustment disorder with depressed mood (3) Bipolar affective, mixed (4) Impulse control disorder (5) Dementia, vascular, with delusions (6) Dementia, vascular, with depression (7) Bipolar affective, mixed, sev w/ psych HARVEY QUIJANO MD Feb 20, 2019 20:33
[2019-02-20] MEDS: ATORVASTATIN CALCIUM 10 MG TABLET. PO SCH (20:48)
[2019-02-20] MEDS: MIRTAZAPINE 15 MG TABLET PO SCH (20:48)
[2019-02-20] MEDS: CETIRIZINE HCL 10 MG TABLET PO SCH (20:49)
--- NOTE | 2019-02-21 04:26 | PN ---
DATE: 02/18/2019 PSYCHIATRIC PROGRESS NOTE This late entry 02/18/2019 covers elements not covered in my initial note. SUBJECTIVE: I met with the patient in the evening. Per LION Zeng, the patient slept 7-1/2 hours previous night, appetite is 50%. She is always wanting to be back in her room and did go back at 2:00 p.m., then did better, not combative, resistive in the morning with meds. REVIEW OF SYSTEMS: Ambulation impaired, in wheelchair. No CV, , pulmonary, eye system symptoms on review. MENTAL STATUS EXAM: Oriented to herself and situation. Speech can be loud, repetitive at times, yelling at times, the rest of the time better. Abstraction fair, computation impaired, language function intact, attention span short. Mood and affect remains labile. LABORATORY DATA: Reviewed. IMPRESSION: Unchanged from initial note. PLAN: No change from initial note, but we will see if we can discontinue or at least reduce the Ativan IM given her sedation and tendency to want to go back to room repeatedly which is a source of conflict with her attending activities and with staff. MAN Luis QUIJANO MD DR: LOYD/eboni JOB#: [id number] / [id number]
--- NOTE | 2019-02-21 04:46 | PN ---
DATE: 02/19/2019 PSYCHIATRIC PROGRESS NOTE This late entry 02/19/2019 covers elements not covered in my initial note. SUBJECTIVE: I met with the patient evening of 02/19/2019. Discussed at treatment team meeting with the entire team in the morning. She is spending much time in bed, sleeping about 7-1/4 hours at night. Appetite 30%, calm and cooperative, takes meds whole. Does complain of pain, received Ultram. REVIEW OF SYSTEMS: Ambulation impaired, in wheelchair. No CV, , pulmonary, eye system symptoms on review. MENTAL STATUS EXAM: Oriented to herself and situation. Speech has some latency, can be loud, repetitive at times, yelling, other times better. Abstraction fair, computation impaired, language function intact, attention span short. Mood and affect somewhat anxious, labile, but improved. LABORATORY DATA: Reviewed. IMPRESSION: Unchanged from initial note. PLAN: Reduce the IM Ativan 1 mg down to 0.5 mg, stopped the Haldol IM daily. Continue rest of the psychotropics, BuSpar, Remeron, trazodone, Seroquel. She is on phenobarbital, Vimpat, Keppra for seizures along with felbamate, Luvox 75 mg a day, Depakote 375 b.i.d. Repeat labs level on Depakote. Adjust further as clinically indicated. MAN Luis QUIJANO MD DR: LOYD/eboni JOB#: [id number] / [id number]
[2019-02-21 05:40] VITALS: BP 97/69
[2019-02-21] MEDS: LEVOTHYROXINE 50 MCG TABLET PO SCH (06:07)
[2019-02-21] MEDS: POTASSIUM CHLORIDE 20 MEQ TABLET.ER. PO SCH ×2 (11:03→20:37)
[2019-02-21] MEDS: CALCIUM CARBONATE 500 MG TABLET PO SCH ×2 (11:03→17:11)
[2019-02-21] MEDS: FERROUS SULFATE 325 MG TABLET. PO SCH ×2 (11:03→17:11)
[2019-02-21] MEDS: CHOLECALCIFEROL (VITAMIN D3) 1,000 UNIT TABLET PO SCH (11:03)
[2019-02-21] MEDS: NYSTATIN TOPICAL POWDER 15GM BOTTLE. TP SCH ×2 (11:03→20:39)
[2019-02-21] MEDS: traMADol 50 MG TABLET PO SCH ×2 (11:04→20:38)
[2019-02-21] MEDS: QUEtiapine 25 MG TABLET. PO SCH ×2 (11:04→20:38)
[2019-02-21] MEDS: busPIRone 15 MG TABLET. PO SCH ×2 (11:05→17:11)
[2019-02-21] MEDS: levETIRAcetam 500 MG TABLET PO SCH ×2 (11:05→20:38)
[2019-02-21] MEDS: MAGNESIUM OXIDE 400 MG TABLET PO SCH ×3 (11:05→20:37)
[2019-02-21] MEDS: PHENobarbital 32.4 MG TABLET. PO SCH ×2 (11:05→20:38)
[2019-02-21] MEDS: FELBAMATE 400 MG TABLET PO SCH ×3 (11:05→20:37)
[2019-02-21] MEDS: LACTOBACILLUS RHAMNOSUS GG 1 CAPSULE. PO SCH ×3 (11:05→20:37)
[2019-02-21] MEDS: LACOSAMIDE 50 MG TABLET PO SCH ×2 (11:05→20:39)
[2019-02-21] MEDS: LIDOCAINE (700MG/PATCH) PATCH. TP SCH (11:06)
[2019-02-21] MEDS: PANTOPRAZOLE 40 MG TABLET. PO SCH (11:06)
[2019-02-21] MEDS: DIVALPROEX 125 MG CAP.SPRINK PO SCH ×2 (11:06→20:38)
[2019-02-21 15:52] VITALS: BP 100/65
--- NOTE | 2019-02-21 18:30 | NUR ---
Patient was allowed to sleep in until about 11:00 then woken up and provided morning medications. Patient was resistive to morning medications. Patient was resistive with getting up and was sullen and sarcastic throughout lunch. After lunch patient was told she could not lay down until she took her 14:00 medications, which she refused. Redirection and education not effective, she only agreed to take the medications when staff escorted her to the [facility]. Patient escorted to bed, and was up for supper. Will continue to monitor.
[2019-02-21] MEDS: MIRTAZAPINE 15 MG TABLET PO SCH (20:38)
[2019-02-21] MEDS: ATORVASTATIN CALCIUM 10 MG TABLET. PO SCH (20:38)
[2019-02-21] MEDS: CETIRIZINE HCL 10 MG TABLET PO SCH (20:38)
--- NOTE | 2019-02-21 23:00 | NUR ---
Pt sitting in the dayroom this evening. Yelling out on/off throughout the night, stating that she wants to go to bed. Compliant with whole medications and shower.
[2019-02-22] MEDS: LEVOTHYROXINE 50 MCG TABLET PO SCH (06:01)
[2019-02-22 06:14] VITALS: BP 99/66
[2019-02-22] MEDS: busPIRone 15 MG TABLET. PO SCH ×2 (08:45→17:55)
[2019-02-22] MEDS: LACTOBACILLUS RHAMNOSUS GG 1 CAPSULE. PO SCH ×2 (08:45→21:12)
[2019-02-22] MEDS: QUEtiapine 25 MG TABLET. PO SCH ×2 (08:45→21:12)
[2019-02-22] MEDS: traMADol 50 MG TABLET PO SCH ×2 (08:46→21:12)
[2019-02-22] MEDS: levETIRAcetam 500 MG TABLET PO SCH ×2 (08:46→21:12)
[2019-02-22] MEDS: DIVALPROEX 125 MG CAP.SPRINK PO SCH ×2 (08:46→21:12)
[2019-02-22] MEDS: CALCIUM CARBONATE 500 MG TABLET PO SCH ×2 (08:46→17:55)
[2019-02-22] MEDS: CHOLECALCIFEROL (VITAMIN D3) 1,000 UNIT TABLET PO SCH (08:46)
[2019-02-22] MEDS: FELBAMATE 400 MG TABLET PO SCH ×3 (08:46→21:11)
[2019-02-22] MEDS: MAGNESIUM OXIDE 400 MG TABLET PO SCH ×3 (08:46→21:12)
[2019-02-22] MEDS: PANTOPRAZOLE 40 MG TABLET. PO SCH (08:46)
[2019-02-22] MEDS: FERROUS SULFATE 325 MG TABLET. PO SCH ×2 (08:46→17:55)
[2019-02-22] MEDS: LIDOCAINE (700MG/PATCH) PATCH. TP SCH (08:47)
[2019-02-22] MEDS: NYSTATIN TOPICAL POWDER 15GM BOTTLE. TP SCH ×2 (08:47→21:13)
[2019-02-22] MEDS: POTASSIUM CHLORIDE 20 MEQ TABLET.ER. PO SCH ×2 (08:51→21:12)
[2019-02-22] MEDS: PHENobarbital 32.4 MG TABLET. PO SCH ×2 (08:53→21:12)
[2019-02-22] MEDS: LACOSAMIDE 50 MG TABLET PO SCH ×2 (08:54→21:13)
--- NOTE | 2019-02-22 13:13 | NUR ---
Patient is irritable and flat when approached by this nurse. Patient is not eating and drinking according to [employer] staff. When this nurse asked patient why she was not eating she stated "I wasn't supposed to get up". Patient wants to be in bed at all times and is resistive to cares and medications when she is gotten out of bed by staff. Will continue to monitor.
--- NOTE | 2019-02-22 16:10 | NUR ---
SATURDAY PHOTO TAKEN OF BUTTOCKS
[2019-02-22 16:18] VITALS: BP 95/63
[2019-02-22] MEDS ORDERED: NYSTATIN TOPICAL POWDER 15GM BOTTLE. TP SCH (21:00)
[2019-02-22] MEDS: ATORVASTATIN CALCIUM 10 MG TABLET. PO SCH (21:12)
[2019-02-22] MEDS: CETIRIZINE HCL 10 MG TABLET PO SCH (21:13)
[2019-02-22] MEDS: MIRTAZAPINE 15 MG TABLET PO SCH (21:13)
--- NOTE | 2019-02-22 22:03 | PDOC ---
Exam Note: David Note: This is a late entry for DOS 02/21/2019. Please also refer to the separate dictated note~for this date of service dictated separately.~Patient seen individually. Discussed the patient with Nursing staff reviewed the chart.~Reviewed interim history and current functioning. Reviewed vital signs,~Labs/ Radiology~and current medications noted below. Continue current treatment with the changes noted in the dictated addendum note Assessment: Vital Signs/I&O: Vital Signs Date Time Temp Pulse Resp B/P (MAP) Pulse Ox O2 Delivery O2 Flow Rate FiO2 02/22/19 21:12 96 02/22/19 16:18 97.5 68 16 95/63 (74) 02/21/19 15:00 Room Air I & O 02/21/19 02/21/19 02/22/19 15:00 23:00 07:00 Intake Total 240 ml 240 ml 240 ml Output Total 225 ml Balance 240 ml 240 ml 15 ml Current Medications: I have reviewed the current psychotropics carefully including drug interactions. Risk benefit ratio favors no change other than as noted in my dictated progress note. Diagnosis: Problems: (1) Severe major depression with psychotic features (2) Adjustment disorder with depressed mood (3) Bipolar affective, mixed (4) Impulse control disorder (5) Dementia, vascular, with delusions (6) Dementia, vascular, with depression (7) Bipolar affective, mixed, sev w/ psych HARVEY QUIJANO MD Feb 22, 2019 22:03
--- NOTE | 2019-02-22 23:47 | NUR ---
Pt continues to be labile; wanting to stay in bed all evening, calling staff names and resisting medication. Pt eventually compliant with whole medications after much coaxing. Pt removed her lin this evening. Pt is currently laying in bed STEPHEN to allow her buttocks to heal.
[2019-02-22] MEDS: traMADol 50 MG TABLET PO PRN (23:56)
[2019-02-23] MEDS: LEVOTHYROXINE 50 MCG TABLET PO SCH (05:43)
[2019-02-23 05:59] VITALS: BP 90/57
[2019-02-23] MEDS: LIDOCAINE (700MG/PATCH) PATCH. TP SCH (09:00)
[2019-02-23] MEDS: PANTOPRAZOLE 40 MG TABLET. PO SCH (11:44)
[2019-02-23] MEDS: PHENobarbital 32.4 MG TABLET. PO SCH ×2 (11:44→20:00)
[2019-02-23] MEDS: DIVALPROEX 125 MG CAP.SPRINK PO SCH ×2 (11:44→20:01)
[2019-02-23] MEDS: FELBAMATE 400 MG TABLET PO SCH ×3 (11:45→19:59)
[2019-02-23] MEDS: CHOLECALCIFEROL (VITAMIN D3) 1,000 UNIT TABLET PO SCH (11:45)
[2019-02-23] MEDS: busPIRone 15 MG TABLET. PO SCH ×2 (11:45→17:24)
[2019-02-23] MEDS: MAGNESIUM OXIDE 400 MG TABLET PO SCH ×3 (11:45→20:01)
[2019-02-23] MEDS: LACOSAMIDE 50 MG TABLET PO SCH ×2 (11:45→20:02)
[2019-02-23] MEDS: QUEtiapine 25 MG TABLET. PO SCH ×2 (11:45→19:59)
[2019-02-23] MEDS: LACTOBACILLUS RHAMNOSUS GG 1 CAPSULE. PO SCH ×2 (11:45→20:01)
[2019-02-23] MEDS: levETIRAcetam 500 MG TABLET PO SCH ×2 (11:45→20:01)
[2019-02-23] MEDS: POTASSIUM CHLORIDE 20 MEQ TABLET.ER. PO SCH ×2 (11:46→20:01)
[2019-02-23] MEDS: FERROUS SULFATE 325 MG TABLET. PO SCH ×2 (11:46→17:24)
[2019-02-23] MEDS: CALCIUM CARBONATE 500 MG TABLET PO SCH ×2 (11:46→17:24)
[2019-02-23] MEDS: traMADol 50 MG TABLET PO SCH ×2 (11:46→19:59)
[2019-02-23] MEDS: NYSTATIN TOPICAL POWDER 15GM BOTTLE. TP SCH ×2 (11:47→20:02)
[2019-02-23 16:07] VITALS: BP 102/68
--- NOTE | 2019-02-23 18:00 | NUR ---
Patient was allowed to sleep in until about 11:00 then woken up and provided morning medications. Patient was resistive to morning medications and getting up; she was sullen and sarcastic throughout lunch. After lunch patient was told she could not lay down until she took her 14:00 medications, which she was compliant with. Patient was resistive with her dinnertime medications, but eventually took them after a lot of coaxing. Will continue to monitor.
[2019-02-23] MEDS: CETIRIZINE HCL 10 MG TABLET PO SCH (20:00)
[2019-02-23] MEDS: MIRTAZAPINE 15 MG TABLET PO SCH (20:00)
[2019-02-23] MEDS: CYPROHEPTADINE 4 MG TABLET. PO SCH (20:00)
[2019-02-23] MEDS: ATORVASTATIN CALCIUM 10 MG TABLET. PO SCH (20:01)
--- NOTE | 2019-02-23 20:30 | PDOC ---
Exam Note: David Note: Please also refer to the separate dictated note~for this date of service dictated separately.~Patient seen individually. Discussed the patient with Nursing staff reviewed the chart.~Reviewed interim history and current functioning. Reviewed vital signs,~Labs/ Radiology~and current medications noted below. Continue current treatment with the changes noted in the dictated addendum note Assessment: Vital Signs/I&O: Vital Signs Date Time Temp Pulse Resp B/P (MAP) Pulse Ox O2 Delivery O2 Flow Rate FiO2 02/23/19 19:59 18 Room Air 02/23/19 16:07 98.1 70 102/68 (79) 96 I & O 02/22/19 02/22/19 02/23/19 15:00 23:00 07:00 Intake Total 0 ml 100 ml Balance 0 ml 100 ml Current Medications: Meds: Current Medications Medications (Trade) Dose Ordered Sig/Antoni Route PRN Reason Start Time Stop Time Status Last Admin Dose Admin Cyproheptadine HCl (Periactin) 4 mg QHS PO 02/23/19 21:00 02/23/19 20:00 I have reviewed the current psychotropics carefully including drug interactions. Risk benefit ratio favors no change other than as noted in my dictated progress note. Diagnosis: Problems: (1) Severe major depression with psychotic features (2) Adjustment disorder with depressed mood (3) Bipolar affective, mixed (4) Impulse control disorder (5) Dementia, vascular, with delusions (6) Dementia, vascular, with depression (7) Bipolar affective, mixed, sev w/ psych HARVEY QUIJANO MD Feb 23, 2019 20:30
[2019-02-23] MEDS: CLOTRIMAZOLE 1% VAGINAL CREAM 45GM TUBE. VG SCH (22:38)
--- NOTE | 2019-02-23 23:10 | NUR ---
Nursing Note The patient was located in the day room for her medication and assessment. The patient was resistive with her medication but did eventually take them whole. The patient was argumentative during her assessment. The patient is currently sleeping in her room.
--- NOTE | 2019-02-24 00:15 | PN ---
DATE: 02/20/2019 PSYCHIATRIC PROGRESS NOTE This late entry, 02/20, covers the elements not covered in my initial note. SUBJECTIVE: I met with the patient on the evening of 02/20. Per Arianna SEYMOUR, the patient slept 7-1/4 hours previous night and then few hours early in the morning, 02/20. She did alright until about 3 p.m. and then was agitated, yelling, calling nursing staff dumb, wanting to be put in bed and then up again. REVIEW OF SYSTEMS: Ambulation impaired, in wheelchair. No CV, , pulmonary, eye systems symptoms on review. MENTAL STATUS EXAM: Oriented to herself, at times situation. Insight, judgment, recent and remote memory, attention, concentration, fund of knowledge poor, consistent with her diagnosis. Some of her agitation worsens her orientation, though at other times, she seems much more oriented. LABORATORY DATA: Reviewed. IMPRESSION: Bipolar disorder, mixed with psychotic features, mild cognitive impairment; anxiety disorder, unspecified; impulse control disorder, unspecified. PLAN: Continue current psychotropics. Valproic acid level therapeutic at 50. MAN Luis QUIJANO MD DR: LOYD/eboni JOB#: [id number] / [id number]
--- NOTE | 2019-02-24 03:55 | PN ---
DATE: 02/21/2019 PSYCHIATRIC PROGRESS NOTE This late entry 02/21/2019 covers the elements not covered in my initial note. SUBJECTIVE: I met with the patient in the evening of 02/21/2019. The patient slept 9 hours previous night. She slept 10 in the morning, took her meds only when persistently requested by nursing staff, anxious, restless, paranoid. REVIEW OF SYSTEMS: Impaired ambulation, in wheelchair. No CV, , pulmonary, eye system symptoms on review. MENTAL STATUS EXAM: Oriented to herself and situation. Speech coherent, has some latency. Abstraction fair, computation impaired, language function intact. Mood and affect is labile. LABORATORY DATA: Reviewed. IMPRESSION: Unchanged from initial note. PLAN: No change from initial note. MAN Luis QUIJANO MD DR: LOYD/eboni JOB#: [id number] / [id number]
--- NOTE | 2019-02-24 04:00 | PN ---
DATE: 02/22/2019 PSYCHIATRIC PROGRESS NOTE This late entry 02/22/2019 covers the elements not covered in my initial note. SUBJECTIVE: I met with the patient in the evening of 02/22/2019. The patient continues to have poor appetite. Slept 6-3/4 hours previous night, constantly wanting out of bed and then back in bed, took her medications whole. REVIEW OF SYSTEMS: Ambulation impaired, in wheelchair. No CV, , pulmonary, eye system symptoms on review. MENTAL STATUS EXAM: Oriented to herself and situation. Speech has some latency, coherent, can be rapid, loud, yelling at times. Abstraction fair, computation impaired, language function intact, attention span short. Mood and affect labile. LABORATORY DATA: Reviewed. IMPRESSION: Unchanged from initial note. PLAN: Start Periactin 4 mg at bedtime to help stimulate her appetite. Continue rest of the psychotropics including Luvox for OCD, BuSpar for anxiety, Remeron for sleep, trazodone for sleep and Seroquel as a mood stabilizer. Phenobarbital, Vimpat, Keppra, felbamate for her seizure disorder. Depakote as a mood stabilizer. HARVEY QUIJANO MD DR: LOYD/eboni JOB#: [id number] / [id number]
[2019-02-24] MEDS: LEVOTHYROXINE 50 MCG TABLET PO SCH (06:12)
[2019-02-24 06:28] VITALS: BP 100/65
[2019-02-24] MEDS: LIDOCAINE (700MG/PATCH) PATCH. TP SCH (11:20)
[2019-02-24] MEDS: PANTOPRAZOLE 40 MG TABLET. PO SCH (11:21)
[2019-02-24] MEDS: PHENobarbital 32.4 MG TABLET. PO SCH ×2 (11:21→19:30)
[2019-02-24] MEDS: busPIRone 15 MG TABLET. PO SCH ×2 (11:22→17:24)
[2019-02-24] MEDS: LACOSAMIDE 50 MG TABLET PO SCH ×2 (11:22→19:31)
[2019-02-24] MEDS: FELBAMATE 400 MG TABLET PO SCH ×3 (11:22→19:29)
[2019-02-24] MEDS: CHOLECALCIFEROL (VITAMIN D3) 1,000 UNIT TABLET PO SCH (11:22)
[2019-02-24] MEDS: FERROUS SULFATE 325 MG TABLET. PO SCH ×2 (11:22→17:24)
[2019-02-24] MEDS: NYSTATIN TOPICAL POWDER 15GM BOTTLE. TP SCH ×2 (11:22→19:28)
[2019-02-24] MEDS: DIVALPROEX 125 MG CAP.SPRINK PO SCH ×2 (11:22→19:29)
[2019-02-24] MEDS: QUEtiapine 25 MG TABLET. PO SCH ×2 (11:23→19:32)
[2019-02-24] MEDS: traMADol 50 MG TABLET PO SCH ×2 (11:23→19:31)
[2019-02-24] MEDS: CALCIUM CARBONATE 500 MG TABLET PO SCH ×2 (11:23→17:24)
[2019-02-24] MEDS: MAGNESIUM OXIDE 400 MG TABLET PO SCH ×3 (11:23→19:30)
[2019-02-24] MEDS: LACTOBACILLUS RHAMNOSUS GG 1 CAPSULE. PO SCH ×2 (11:23→19:29)
[2019-02-24] MEDS: levETIRAcetam 500 MG TABLET PO SCH ×2 (11:23→19:29)
[2019-02-24] MEDS: POTASSIUM CHLORIDE 20 MEQ TABLET.ER. PO SCH ×2 (11:24→19:29)
[2019-02-24 15:55] VITALS: BP 104/71
--- NOTE | 2019-02-24 16:42 | NUR ---
Patient was allowed to sleep in until about 11:00 then woken up and provided morning medications. Patient was resistive to morning medications and getting up; she only ate green beans and a peanut butter and jelly sandwich, but drank most of 2 ensures. After lunch patient was told she could not lay down until she took her 14:00 medications, which she was compliant with. Will continue to monitor.
[2019-02-24] MEDS: CLOTRIMAZOLE 1% VAGINAL CREAM 45GM TUBE. VG SCH (19:28)
[2019-02-24] MEDS: CYPROHEPTADINE 4 MG TABLET. PO SCH (19:29)
[2019-02-24] MEDS: ATORVASTATIN CALCIUM 10 MG TABLET. PO SCH (19:29)
[2019-02-24] MEDS: MIRTAZAPINE 15 MG TABLET PO SCH (19:30)
[2019-02-24] MEDS: CETIRIZINE HCL 10 MG TABLET PO SCH (19:30)
--- NOTE | 2019-02-24 20:54 | PDOC ---
Exam Note: David Note: Please also refer to the separate dictated note~for this date of service dictated separately.~Patient seen individually. Discussed the patient with Nursing staff reviewed the chart.~Reviewed interim history and current functioning. Reviewed vital signs,~Labs/ Radiology~and current medications noted below. Continue current treatment with the changes noted in the dictated addendum note Assessment: Vital Signs/I&O: Vital Signs Date Time Temp Pulse Resp B/P (MAP) Pulse Ox O2 Delivery O2 Flow Rate FiO2 02/24/19 19:31 18 Room Air 02/24/19 15:55 97.0 78 104/71 (82) 92 I & O 02/23/19 02/23/19 02/24/19 15:00 23:00 07:00 Intake Total 0 ml 0 ml 80 ml Balance 0 ml 0 ml 80 ml Current Medications: Meds: Current Medications Medications (Trade) Dose Ordered Sig/Antoni Route PRN Reason Start Time Stop Time Status Last Admin Dose Admin Cyproheptadine HCl (Periactin) 4 mg QHS PO 02/23/19 21:00 02/24/19 19:29 Clotrimazole (Mycelex-7) 1 vale HS VG 02/23/19 21:00 03/02/19 10:00 02/24/19 19:28 I have reviewed the current psychotropics carefully including drug interactions. Risk benefit ratio favors no change other than as noted in my dictated progress note. Diagnosis: Problems: (1) Adjustment disorder with depressed mood (2) Severe major depression with psychotic features (3) Dementia, vascular, with delusions (4) Bipolar affective, mixed, sev w/ psych (5) Impulse control disorder (6) Bipolar affective, mixed (7) Dementia, vascular, with depression HARVEY QUIJANO MD Feb 24, 2019 20:54
--- NOTE | 2019-02-25 01:43 | NUR ---
Nursing Note The patient was located in the day room for her medication and assessment. The patient was calm and cooperative with her medication and assessment. The patient took her medication whole. The patient received PRN MOM for R/T last documented BM of 02/21/19 The patient is currently sleeping in her room.
[2019-02-25 06:00] VITALS: BP 110/77
[2019-02-25] MEDS: LEVOTHYROXINE 50 MCG TABLET PO SCH (06:38)
[2019-02-25] MEDS: NYSTATIN TOPICAL POWDER 15GM BOTTLE. TP SCH ×2 (09:00→21:16)
[2019-02-25] MEDS: LACOSAMIDE 50 MG TABLET PO SCH ×2 (11:25→21:11)
[2019-02-25] MEDS: PANTOPRAZOLE 40 MG TABLET. PO SCH (11:26)
[2019-02-25] MEDS: DIVALPROEX 125 MG CAP.SPRINK PO SCH ×2 (11:26→21:11)
[2019-02-25] MEDS: FELBAMATE 400 MG TABLET PO SCH ×3 (11:27→21:11)
[2019-02-25] MEDS: MAGNESIUM OXIDE 400 MG TABLET PO SCH ×2 (11:27→17:36)
[2019-02-25] MEDS: PHENobarbital 32.4 MG TABLET. PO SCH ×2 (11:27→21:10)
[2019-02-25] MEDS: levETIRAcetam 500 MG TABLET PO SCH ×2 (11:27→21:11)
[2019-02-25] MEDS: FERROUS SULFATE 325 MG TABLET. PO SCH ×2 (11:27→17:36)
[2019-02-25] MEDS: LACTOBACILLUS RHAMNOSUS GG 1 CAPSULE. PO SCH ×2 (11:28→21:10)
[2019-02-25] MEDS: traMADol 50 MG TABLET PO SCH ×2 (11:28→21:00)
[2019-02-25] MEDS: busPIRone 15 MG TABLET. PO SCH ×2 (11:28→17:36)
[2019-02-25] MEDS: POTASSIUM CHLORIDE 20 MEQ TABLET.ER. PO SCH ×2 (11:28→21:12)
[2019-02-25] MEDS: QUEtiapine 25 MG TABLET. PO SCH ×2 (11:28→21:11)
[2019-02-25] MEDS: CHOLECALCIFEROL (VITAMIN D3) 1,000 UNIT TABLET PO SCH (11:29)
[2019-02-25] MEDS: CALCIUM CARBONATE 500 MG TABLET PO SCH ×2 (11:29→17:36)
[2019-02-25] MEDS: LIDOCAINE (700MG/PATCH) PATCH. TP SCH (11:32)
--- NOTE | 2019-02-25 11:53 | NUR ---
Nursing Note Irritable, angry, verbally abusive, resistant to meds multiple tries, finally takes meds with max encouragement.
[2019-02-25] MEDS: traMADol 50 MG TABLET PO PRN ×2 (13:13→21:13)
[2019-02-25] MEDS: QUEtiapine 25 MG TABLET. PO PRN (13:13)
--- NOTE | 2019-02-25 13:35 | NUR ---
Patient did not take all morning medications. She knocked the cup of pills out of my hand. Pulled replacement medications, and attempted to provide, she refused to take the medications. She has been repeatedly calling out 'I want in my room' while calling staff and other patients stupid and/or dumb. She has been striking out at staff. PRN medication provided at lunch per eMAR, patient continued to be agitated, more prn medications provided per eMAR. Will continue to monitor.
[2019-02-25 16:12] VITALS: BP 116/80
--- NOTE | 2019-02-25 20:20 | PN ---
DATE: 02/23/2019 PSYCHIATRIC PROGRESS NOTE. This late entry of 02/23/2019 covers the elements not covered in my initial note. SUBJECTIVE: I met with the patient in the evening of 02/23/2019. The patient has been intermittently agitated, removed her catheter herself, has significant vaginal infection. We will defer to Dr. Ackerman, started on antibiotics. The patient was arguing, anxious, restless, demanding. REVIEW OF SYSTEMS: Ambulation impaired, in wheelchair. No CV, , pulmonary, eye system symptoms on review. MENTAL STATUS EXAM: Oriented to herself and situation. Speech is coherent, rapid at times, loud. Abstraction fair, computation impaired, language function intact, attention span short. Mood and affect, lability is improved. LABORATORY DATA: Reviewed. IMPRESSION: Unchanged from initial note. PLAN: No change from initial note. MAN Luis QUIJANO MD DR: LOYD/eboni JOB#: [id number] / [id number]
--- NOTE | 2019-02-25 20:23 | PN ---
DATE: 02/24/2019 PSYCHIATRIC PROGRESS NOTE. This late entry of 02/24/2019 covers the elements not covered in my initial note. SUBJECTIVE: I met with the patient in the evening. We have gone ahead and stopped the scheduled IM Ativan. Per LION Walker, the patient slept 6-3/4 hours, slept 10 in the morning until 11 a.m., resistive to a.m. medications. Oral intake is poor, but she had 2 Ensures for lunch, took her meds at 2:00 p.m., then has been in bed since then. REVIEW OF SYSTEMS: Ambulation impaired, in wheelchair. No CV, , pulmonary, eye system symptoms on review. MENTAL STATUS EXAM: Oriented to herself and situation. Speech coherent, rapid, loud at times. Abstraction fair, computation impaired, language function intact. Mood and affect somewhat labile, anxious. LABORATORY DATA: Reviewed. IMPRESSION: Unchanged from initial note. PLAN: No change from initial note. Encouraged, increased appetite. Periactin has been added for this as well. Continued Luvox, Depakote. She remains on phenobarbital, Vimpat, Keppra, felbamate for her seizures, BuSpar for anxiety, Seroquel as a mood stabilizer, Depakote. Valproic acid level therapeutic at 50. Adjust further as clinically indicated. MAN Luis QUIJANO MD DR: LOYD/eboni JOB#: [id number] / [id number]
--- NOTE | 2019-02-25 20:43 | PDOC ---
Exam Note: David Note: Please also refer to the separate dictated note~for this date of service dictated separately.~Patient seen individually. Discussed the patient with Nursing staff reviewed the chart.~Reviewed interim history and current functioning. Reviewed vital signs,~Labs/ Radiology~and current medications noted below. Continue current treatment with the changes noted in the dictated addendum note Assessment: Vital Signs/I&O: Vital Signs Date Time Temp Pulse Resp B/P (MAP) Pulse Ox O2 Delivery O2 Flow Rate FiO2 02/25/19 16:12 97.2 69 14 116/80 (92) 94 02/25/19 15:00 Room Air I & O 02/24/19 02/24/19 02/25/19 15:00 23:00 07:00 Intake Total 240 ml 240 ml 100 ml Balance 240 ml 240 ml 100 ml Current Medications: I have reviewed the current psychotropics carefully including drug interactions. Risk benefit ratio favors no change other than as noted in my dictated progress note. Diagnosis: Problems: (1) Severe major depression with psychotic features (2) Adjustment disorder with depressed mood (3) Bipolar affective, mixed (4) Impulse control disorder (5) Dementia, vascular, with delusions (6) Dementia, vascular, with depression (7) Bipolar affective, mixed, sev w/ psych HARVEY QUIJANO MD Feb 25, 2019 20:43
[2019-02-25] MEDS: CLOTRIMAZOLE 1% VAGINAL CREAM 45GM TUBE. VG SCH (21:10)
[2019-02-25] MEDS: CYPROHEPTADINE 4 MG TABLET. PO SCH (21:11)
[2019-02-25] MEDS: ATORVASTATIN CALCIUM 10 MG TABLET. PO SCH (21:11)
[2019-02-25] MEDS: CETIRIZINE HCL 10 MG TABLET PO SCH (21:12)
[2019-02-25] MEDS: MIRTAZAPINE 15 MG TABLET PO SCH (21:12)
--- NOTE | 2019-02-26 03:15 | NUR ---
Last evening pt was awake in bed and refusing meds, she was brought to day room then only yelled at staff calling them stupid, dumb and continually exit seeking and yelling to go back to bed. eventually she took meds whole and went back to bed and has been sleeping well.
[2019-02-26] MEDS: LEVOTHYROXINE 50 MCG TABLET PO SCH (05:24)
[2019-02-26 06:12] VITALS: BP 108/76
[2019-02-26 09:31] LABS: BASO % 1 % (0-3); EOS # 0.9 x10^3/uL (0.0-0.7); EOS % 21 % (0-3); HEMOGLOBIN 12.1 g/dL (12.0-15.5); LYMPH # 1.7 x10^3/uL (1.0-4.8); LYMPH % 38 % (24-48); MEAN CORPUSCULAR HEMOGLOBIN 32 pg (25-35); MEAN CORPUSCULAR HGB CONC 33 g/dL (31-37); MEAN CORPUSCULAR VOLUME 96 fL (79-100); MONO # 0.5 x10^3/uL (0.0-1.1); MONO % 11 % (0-9); NEUT # 1.3 x10^3uL (1.8-7.7); NEUT % 29 % (31-73); PLATELET COUNT 190 x10^3/uL (140-400); RED BLOOD COUNT 3.84 x10^6/uL (3.50-5.40); RED CELL DISTRIBUTION WIDTH 14.5 % (11.5-14.5); WHITE BLOOD COUNT 4.3 x10^3/uL (4.0-11.0)
[2019-02-26 09:45] LABS: ALBUMIN 2.9 g/dL (3.4-5.0); ALBUMIN/GLOBULIN RATIO 0.7 (1.0-1.7); CALCIUM 9.2 mg/dL (8.5-10.1); CREATININE 0.7 mg/dL (0.6-1.0); GFR 83.7; POTASSIUM 4.2 mmol/L (3.5-5.1); TOTAL BILIRUBIN 0.2 mg/dL (0.2-1.0); TOTAL PROTEIN 6.9 g/dL (6.4-8.2)
[2019-02-26 10:14] LABS: % ATYL 4 % (0-0); % BASOS 1 % (0-3); % EOS 19 % (0-5); % LYMPHS 39 % (24-48); % MONOS 6 % (0-10); % SEGS 31 % (35-66); PLT ESTIMATE ADEQUATE (ADEQUATE)
--- NOTE | 2019-02-26 10:36 | NUR ---
WEEKLY ACTIVITY THERAPY NOTE Date of Admission: 02/05/2019; DC to ICU 02/01/2019 Date of AT Assessment: 02/05/2019 Goal aimed: to increase engagement and socialization Initial Goal: Pt. will participate in at least two activity therapy groups per week. Goal changed 02/19: Pt. will participate in at least three individual Activity Therapy sessions before discharge. Weekly progress towards goal: on track 04/17 (02/23) Group participation level: Zero, one minimal individual Weekly highlights: individual session completed this week: walked halls with staff, answering a few questions Behaviors observed: withdrawn, wanting to go back to her room Plan: no change to goal Beneficial adaptations: individual engagement, possibly wordsearches
--- NOTE | 2019-02-26 11:20 | NUR ---
WEEKLY NOTE: Pt is eating roughly 50% and sleeping on average 6 hours per night. Pt is very irritable and does not wish to go out of her room. Pt prefers to be left in bed and attempts to be non-compliant with medications; however, is compliant with redirection. Pt was assessed by hospice and does not meet Medicaid requirements for Hospice. Pt may meet requirements for Palliative care and they will assess pt again on Saturday. Pt will plan to discharge back to [facility] in the beginning of next week.
--- NOTE | 2019-02-26 11:22 | NUR ---
Patient was sleeping this morning for medications. Patient was irritable but able to assess patient. Patient is still sleeping, will give her medications once patient is awake. Will continue to monitor.
[2019-02-26] MEDS: busPIRone 15 MG TABLET. PO SCH ×2 (12:19→17:08)
[2019-02-26] MEDS: LACTOBACILLUS RHAMNOSUS GG 1 CAPSULE. PO SCH ×2 (12:19→20:07)
[2019-02-26] MEDS: LACOSAMIDE 50 MG TABLET PO SCH ×2 (12:19→20:19)
[2019-02-26] MEDS: levETIRAcetam 500 MG TABLET PO SCH ×2 (12:20→20:08)
[2019-02-26] MEDS: DIVALPROEX 125 MG CAP.SPRINK PO SCH ×2 (12:20→20:09)
[2019-02-26] MEDS: PHENobarbital 32.4 MG TABLET. PO SCH ×2 (12:20→20:19)
[2019-02-26] MEDS: traMADol 50 MG TABLET PO SCH ×2 (12:20→20:18)
[2019-02-26] MEDS: PANTOPRAZOLE 40 MG TABLET. PO SCH (12:20)
[2019-02-26] MEDS: QUEtiapine 25 MG TABLET. PO SCH ×2 (12:21→20:09)
[2019-02-26] MEDS: CHOLECALCIFEROL (VITAMIN D3) 1,000 UNIT TABLET PO SCH (12:21)
[2019-02-26] MEDS: FELBAMATE 400 MG TABLET PO SCH ×3 (12:21→20:11)
[2019-02-26] MEDS: POTASSIUM CHLORIDE 20 MEQ TABLET.ER. PO SCH ×2 (12:21→20:08)
[2019-02-26] MEDS: NYSTATIN TOPICAL POWDER 15GM BOTTLE. TP SCH ×2 (12:22→20:10)
[2019-02-26 16:47] VITALS: BP 100/58
--- NOTE | 2019-02-26 18:17 | NUR ---
Nursing Note Patient continues to be labile; wanting to stay in bed, calling staff names and resisting medication. 02 sat was low, attempted to put on nasal cannula at 2L and patient was resistive. PRN Zyprexa given @1710. Patient eventually allowed 02 to be on.
[2019-02-26] MEDS: MIRTAZAPINE 15 MG TABLET PO SCH (20:08)
[2019-02-26] MEDS: CYPROHEPTADINE 4 MG TABLET. PO SCH (20:08)
[2019-02-26] MEDS: ATORVASTATIN CALCIUM 10 MG TABLET. PO SCH (20:09)
[2019-02-26] MEDS: CETIRIZINE HCL 10 MG TABLET PO SCH (20:09)
[2019-02-26] MEDS: CLOTRIMAZOLE 1% VAGINAL CREAM 45GM TUBE. VG SCH (20:20)
--- NOTE | 2019-02-26 20:43 | PDOC ---
Exam Note: David Note: Please also refer to the separate dictated note~for this date of service dictated separately.~Patient seen individually. Discussed the patient with Nursing staff reviewed the chart.~Reviewed interim history and current functioning. Reviewed vital signs,~Labs/ Radiology~and current medications noted below. Continue current treatment with the changes noted in the dictated addendum note Assessment: Vital Signs/I&O: Vital Signs Date Time Temp Pulse Resp B/P (MAP) Pulse Ox O2 Delivery O2 Flow Rate FiO2 02/26/19 20:18 Room Air 02/26/19 16:47 97.4 75 16 100/58 (72) 97 I & O 02/25/19 02/25/19 02/26/19 15:00 23:00 07:00 Intake Total 480 ml 240 ml Balance 480 ml 240 ml Labs: Laboratory Tests Test 02/26/19 09:24 White Blood Count 4.3 x10^3/uL (4.0-11.0) Red Blood Count 3.84 x10^6/uL (3.50-5.40) Hemoglobin 12.1 g/dL (12.0-15.5) Hematocrit 37.0 % (36.0-47.0) Mean Corpuscular Volume 96 fL (79-100) Mean Corpuscular Hemoglobin 32 pg (25-35) Mean Corpuscular Hemoglobin Concent 33 g/dL (31-37) Red Cell Distribution Width 14.5 % (11.5-14.5) Platelet Count 190 x10^3/uL (140-400) Neutrophils (%) (Auto) 29 % (31-73) L Lymphocytes (%) (Auto) 38 % (24-48) Monocytes (%) (Auto) 11 % (0-9) H Eosinophils (%) (Auto) 21 % (0-3) H Basophils (%) (Auto) 1 % (0-3) Neutrophils # (Auto) 1.3 x10^3uL (1.8-7.7) L Lymphocytes # (Auto) 1.7 x10^3/uL (1.0-4.8) Monocytes # (Auto) 0.5 x10^3/uL (0.0-1.1) Eosinophils # (Auto) 0.9 x10^3/uL (0.0-0.7) H Basophils # (Auto) 0.0 x10^3/uL (0.0-0.2) Segmented Neutrophils % 31 % (35-66) L Lymphocytes % 39 % (24-48) Atypical Lymphocytes % (Manual) 4 % (0-0) H Monocytes % 6 % (0-10) Eosinophils % 19 % (0-5) H Basophils % 1 % (0-3) Platelet Estimate Adequate (ADEQUATE) Large Platelets Occ Sodium Level 148 mmol/L (136-145) H Potassium Level 4.2 mmol/L (3.5-5.1) Chloride Level 109 mmol/L (98-107) H Carbon Dioxide Level 30 mmol/L (21-32) Anion Gap 9 (6-14) Blood Urea Nitrogen 48 mg/dL (7-20) H Creatinine 0.7 mg/dL (0.6-1.0) Estimated GFR (Cockcroft-Gault) 83.7 BUN/Creatinine Ratio 69 (6-20) H Glucose Level 87 mg/dL (70-99) Calcium Level 9.2 mg/dL (8.5-10.1) Total Bilirubin 0.2 mg/dL (0.2-1.0) Aspartate Amino Transferase (AST) 13 U/L (15-37) L Alanine Aminotransferase (ALT) 10 U/L (14-59) L Alkaline Phosphatase 91 U/L (46-116) Total Protein 6.9 g/dL (6.4-8.2) Albumin 2.9 g/dL (3.4-5.0) L Albumin/Globulin Ratio 0.7 (1.0-1.7) L Current Medications: Meds: Current Medications Medications (Trade) Dose Ordered Sig/Antoni Route PRN Reason Start Time Stop Time Status Last Admin Dose Admin Fluvoxamine Maleate (Luvox) 100 mg DAILY PO 02/26/19 09:00 02/26/19 12:20 I have reviewed the current psychotropics carefully including drug interactions. Risk benefit ratio favors no change other than as noted in my dictated progress note. Diagnosis: Problems: (1) Severe major depression with psychotic features (2) Adjustment disorder with depressed mood (3) Bipolar affective, mixed (4) Impulse control disorder (5) Dementia, vascular, with delusions (6) Dementia, vascular, with depression (7) Bipolar affective, mixed, sev w/ psych HARVEY QUIJANO MD Feb 26, 2019 20:43
--- NOTE | 2019-02-27 03:44 | NUR ---
Last evening pt in day room shouting to go to bed and calling staff names. After she took meds she went to bed then lay awake yelling and restless for several hours. PRN Trazodone given and she quieted down but has remained awake.
[2019-02-27] MEDS: LEVOTHYROXINE 50 MCG TABLET PO SCH (06:13)
[2019-02-27 06:28] VITALS: BP 90/55
[2019-02-27] MEDS: QUEtiapine 25 MG TABLET. PO SCH ×4 (09:00→20:58)
[2019-02-27] MEDS: POTASSIUM CHLORIDE 20 MEQ TABLET.ER. PO SCH ×2 (09:00→20:58)
--- NOTE | 2019-02-27 11:40 | NUR ---
Patient was in her room sleeping, able to assess her. Patient didn't sleep well last night. Will give medications once she is awake. No agitation noted, will continue to monitor.
[2019-02-27] MEDS: LACTOBACILLUS RHAMNOSUS GG 1 CAPSULE. PO SCH ×2 (12:13→20:56)
[2019-02-27] MEDS: DIVALPROEX 125 MG CAP.SPRINK PO SCH ×2 (12:13→20:56)
[2019-02-27] MEDS: PANTOPRAZOLE 40 MG TABLET. PO SCH (12:13)
[2019-02-27] MEDS: busPIRone 15 MG TABLET. PO SCH ×2 (12:13→17:00)
[2019-02-27] MEDS: levETIRAcetam 500 MG TABLET PO SCH ×2 (12:14→20:56)
[2019-02-27] MEDS: FELBAMATE 400 MG TABLET PO SCH ×3 (12:14→20:57)
[2019-02-27] MEDS: PHENobarbital 32.4 MG TABLET. PO SCH ×2 (12:15→20:57)
[2019-02-27] MEDS: traMADol 50 MG TABLET PO SCH ×2 (12:16→20:57)
[2019-02-27] MEDS: LACOSAMIDE 50 MG TABLET PO SCH ×2 (12:16→20:57)
[2019-02-27] MEDS: NYSTATIN TOPICAL POWDER 15GM BOTTLE. TP SCH (12:16)
[2019-02-27] MEDS: CHOLECALCIFEROL (VITAMIN D3) 1,000 UNIT TABLET PO SCH (12:17)
[2019-02-27] MEDS: QUEtiapine 25 MG TABLET. PO PRN ×2 (12:38→13:49)
--- NOTE | 2019-02-27 12:38 | NUR ---
Attempted to give patient PRN zyprexa and and scheduled seroquel. Patient dumped medications onto her try. PRN zyprexa @1217 given in boost as well as PRN seroquel @1238. Patient is arguing with staff and is being resistive. Is currently drinking the boost. Will continue to monitor. Addendum: 02/27/19 at 1435 by FRANCESCO BOWMAN LPN Re-pulled another seroquel since patient dumped the first one onto her tray. Gave scheduled seroquel @1238 along with PRN zyprexa @1217. Patient was resistive with staff, yelling, calling names. Patient was then moved to the quiet hallway. PRN seroquel given @4161.
--- NOTE | 2019-02-27 12:51 | PN ---
DATE: 02/25/2019 This late entry 02/25 covers elements not covered in my initial note. SUBJECTIVE: I met with the patient evening of 02/25. Per Aaron RN, the patient slept 5-1/4 hours previous night. She slept 10:00 in the morning, woke up at 10:30 a.m., got a.m. meds. Rest of the meds, she hit out of the hand of the nursing staff, resistive. Ativan 0.5 mg IM daily has been stopped. She was denied by hospice care. Receiving Zyprexa p.r.n. Did receive Seroquel and was then calmer after that. REVIEW OF SYSTEMS: Ambulation impaired, in wheelchair. No CV, , pulmonary, eye system symptoms on review. MENTAL STATUS EXAMINATION: The patient is oriented to herself and situation. Speech has some latency, can be rapid, loud at times. Abstraction fair, computation impaired, language function intact, attention span short. Memory is impaired. LABORATORY DATA: Reviewed. IMPRESSION: Unchanged from initial note. PLAN: Increase Luvox from 75 mg a day to 100 when she has been on 75 for 3 days. Continue rest of the psychotropics unchanged per initial note. HARVEY QUIJANO MD DR: LOYD/eboni JOB#: [id number] / [id number]
[2019-02-27 16:04] VITALS: BP 96/68
[2019-02-27 18:39] LABS: BILIRUBIN,URINE NEG (NEG); CLARITY,URINE CLOUDY; COLOR,URINE YELLOW; GLUCOSE,URINE NEG (NEG)
[2019-02-27 18:40] LABS: BACTERIA,URINE MOD /HPF (0-FEW); NITRITE,URINE NEG (NEG); RBC,URINE RARE /HPF (0-2); SQUAMOUS EPITHELIAL CELL,UR OCC /LPF; UROBILINOGEN,URINE 0.2 mg/dL (0.2 mg/dL)
--- NOTE | 2019-02-27 19:45 | PN ---
DATE: 02/26/2019 This late entry 02/26/2019 covers elements not covered in my initial note. SUBJECTIVE: I met with the patient in the evening and staffed at a treatment team meeting with the entire team in the morning. The patient is sleeping 7 hours, anxious, restless. She has not been accepted for hospice care. She gets irritable, labile, loud and screaming at times. REVIEW OF SYSTEMS: Ambulation impaired, in wheelchair. No CV, , pulmonary, eye, ENT system symptoms on review. Reliability varies. MENTAL STATUS EXAM: Oriented to herself and situation. Speech is coherent, can be rapid, loud at times. Abstraction fair, computation impaired, language function intact, attention span short. Mood and affect remains anxious, labile. LABORATORY DATA: Reviewed. IMPRESSION: Unchanged from initial note. PLAN: No change from initial note. MAN Luis QUIJANO MD DR: LOYD/eboni JOB#: [id number] / [id number]
[2019-02-27] MEDS: ATORVASTATIN CALCIUM 10 MG TABLET. PO SCH (20:56)
[2019-02-27] MEDS: CYPROHEPTADINE 4 MG TABLET. PO SCH (20:56)
[2019-02-27] MEDS: CETIRIZINE HCL 10 MG TABLET PO SCH (20:57)
[2019-02-27] MEDS: MIRTAZAPINE 15 MG TABLET PO SCH (20:57)
--- NOTE | 2019-02-27 20:57 | PDOC ---
Exam Note: David Note: Please also refer to the separate dictated note~for this date of service dictated separately.~Patient seen individually. Discussed the patient with Nursing staff reviewed the chart.~Reviewed interim history and current functioning. Reviewed vital signs,~Labs/ Radiology~and current medications noted below. Continue current treatment with the changes noted in the dictated addendum note Assessment: Vital Signs/I&O: Vital Signs Date Time Temp Pulse Resp B/P (MAP) Pulse Ox O2 Delivery O2 Flow Rate FiO2 02/27/19 16:04 97.4 84 18 96/68 (77) 92 02/27/19 06:28 Nasal Cannula 2.0 I & O 02/26/19 02/26/19 02/27/19 15:00 23:00 07:00 Intake Total 960 ml 240 ml 240 ml Balance 960 ml 240 ml 240 ml Labs: Laboratory Tests Test 02/27/19 18:12 Urine Collection Type U cath Urine Color Yellow Urine Clarity Cloudy Urine pH 7.5 Urine Specific [place] 1.025 Urine Protein Trace (NEG-TRACE) Urine Glucose (UA) Neg mg/dL (NEG) Urine Ketones (Stick) Neg mg/dL (NEG) Urine Blood Neg (NEG) Urine Nitrite Neg (NEG) Urine Bilirubin Neg (NEG) Urine Urobilinogen Dipstick 0.2 mg/dL (0.2 mg/dL) Urine Leukocyte Esterase Trace (NEG) Urine RBC Rare /HPF (0-2) Urine WBC 11-20 /HPF (0-4) Urine Squamous Epithelial Cells Occ /LPF Urine Bacteria Mod /HPF (0-FEW) Urine Mucus Mod /LPF Current Medications: I have reviewed the current psychotropics carefully including drug interactions. Risk benefit ratio favors no change other than as noted in my dictated progress note. Diagnosis: Problems: (1) Severe major depression with psychotic features (2) Adjustment disorder with depressed mood (3) Bipolar affective, mixed (4) Impulse control disorder (5) Dementia, vascular, with delusions (6) Dementia, vascular, with depression (7) Bipolar affective, mixed, sev w/ psych HARVEY QUIJANO MD Feb 27, 2019 20:57
[2019-02-28] MEDS: CLOTRIMAZOLE 1% VAGINAL CREAM 45GM TUBE. VG SCH ×2 (00:11→21:00)
[2019-02-28] MEDS: NYSTATIN TOPICAL POWDER 15GM BOTTLE. TP SCH ×3 (00:12→21:00)
--- NOTE | 2019-02-28 01:45 | NUR ---
Last evening pt was in bed at shift change. She was only mildly resistive to meds and did not call staff names as she has been on previous shifts. Meds taken whole. VSS pt said she is just tired tonight. O2 on at 2l with HOB elevated, lungs CTA. Note that UA sent 02/27 has gone to culture.
[2019-02-28 03:55] VITALS: BP 96/65
[2019-02-28 03:57] LABS: BASO # 0.1 x10^3/uL (0.0-0.2); BASO % 1 % (0-3); EOS % 11 % (0-3); HEMATOCRIT 35.4 % (36.0-47.0); HEMOGLOBIN 11.6 g/dL (12.0-15.5); LYMPH # 2.4 x10^3/uL (1.0-4.8); LYMPH % 25 % (24-48); MEAN CORPUSCULAR HEMOGLOBIN 31 pg (25-35); MEAN CORPUSCULAR HGB CONC 33 g/dL (31-37); MEAN CORPUSCULAR VOLUME 96 fL (79-100); MONO # 0.8 x10^3/uL (0.0-1.1); MONO % 8 % (0-9); NEUT # 5.4 x10^3uL (1.8-7.7); NEUT % 56 % (31-73); PLATELET COUNT 175 x10^3/uL (140-400); RED BLOOD COUNT 3.69 x10^6/uL (3.50-5.40); RED CELL DISTRIBUTION WIDTH 14.4 % (11.5-14.5); WHITE BLOOD COUNT 9.8 x10^3/uL (4.0-11.0)
[2019-02-28 04:09] LABS: ALBUMIN 2.8 g/dL (3.4-5.0); ALBUMIN/GLOBULIN RATIO 0.7 (1.0-1.7); CALCIUM 9.1 mg/dL (8.5-10.1); CREATININE 0.7 mg/dL (0.6-1.0); GFR 83.7; POTASSIUM 4.3 mmol/L (3.5-5.1); TOTAL BILIRUBIN 0.2 mg/dL (0.2-1.0); TOTAL PROTEIN 6.9 g/dL (6.4-8.2)
[2019-02-28] MEDS: LEVOTHYROXINE 50 MCG TABLET PO SCH (06:16)
[2019-02-28] MEDS: PANTOPRAZOLE 40 MG TABLET. PO SCH (07:30)
[2019-02-28] MEDS: busPIRone 15 MG TABLET. PO SCH ×2 (08:00→17:38)
[2019-02-28] MEDS: FELBAMATE 400 MG TABLET PO SCH ×3 (09:00→20:58)
[2019-02-28] MEDS: LACOSAMIDE 50 MG TABLET PO SCH ×2 (09:00→20:58)
[2019-02-28] MEDS: CHOLECALCIFEROL (VITAMIN D3) 1,000 UNIT TABLET PO SCH (09:00)
[2019-02-28] MEDS: levETIRAcetam 500 MG TABLET PO SCH ×2 (09:00→20:59)
[2019-02-28] MEDS: DIVALPROEX 125 MG CAP.SPRINK PO SCH ×2 (09:00→20:58)
[2019-02-28] MEDS: PHENobarbital 32.4 MG TABLET. PO SCH ×2 (09:00→20:59)
[2019-02-28] MEDS: LACTOBACILLUS RHAMNOSUS GG 1 CAPSULE. PO SCH ×2 (09:00→20:59)
[2019-02-28] MEDS: QUEtiapine 25 MG TABLET. PO SCH ×2 (09:00→20:59)
[2019-02-28] MEDS: traMADol 50 MG TABLET PO SCH ×2 (09:00→20:59)
--- NOTE | 2019-02-28 09:42 | NUR ---
Pt. sleeping in bed, resps = 18, non labored, wearing O2 per n/c at 2L. Report given that she did not urinate all night. Will continue to monitor closely. Did not awaken for a.m. meds.
[2019-02-28] MEDS: POTASSIUM CHLORIDE 20 MEQ TABLET.ER. PO SCH ×2 (12:40→20:59)
--- NOTE | 2019-02-28 12:44 | NUR ---
Pt. awoke for lunch, resistant to all cares and interventions. Yelling "I don't want that", "I don't want to eat, eating is dumb". Refuses all offers of drinks or food. Jesusita gave her medications crushed and hidden in strawberry ensure, with a straw poked through the lid, as she will throw all things given to her in open containers. When I attemtped to scan her arm band, she tried to scratch my hand each time. Was able to scan her ID band after I had prepared all of her meds while she was distracted by armed security professional. In quiet room presently, until she can eat lunch without yelling. Addendum: 02/28/19 at 1249 by FISH NEAL RN RN She is in the quiet hallway, not room, in her w/c. Freeling wheeling herself and yelling open up the door right now.
--- NOTE | 2019-02-28 14:15 | NUR ---
Pt. had drank most of her ensure after lunch, which contained a.m. meds. Then she went back to bed. Now at 14:15 she took her scheduled 14:00 felbamate, whole with apple juice. HOB raised and she drank and swallowed pill without difficulty. Awake and alert, but not yelling.
[2019-02-28 16:01] VITALS: BP 108/75
--- NOTE | 2019-02-28 20:48 | PDOC ---
Exam Note: David Note: Please also refer to the separate dictated note~for this date of service dictated separately.~Patient seen individually. Discussed the patient with Nursing staff reviewed the chart.~Reviewed interim history and current functioning. Reviewed vital signs,~Labs/ Radiology~and current medications noted below. Continue current treatment with the changes noted in the dictated addendum note Assessment: Vital Signs/I&O: Vital Signs Date Time Temp Pulse Resp B/P (MAP) Pulse Ox O2 Delivery O2 Flow Rate FiO2 02/28/19 16:01 98.5 74 16 108/75 (86) 94 1.5 02/28/19 14:05 Room Air I & O 02/27/19 02/27/19 02/28/19 15:00 23:00 07:00 Intake Total 240 ml 240 ml Balance 240 ml 240 ml Labs: Laboratory Tests Test 02/28/19 03:40 White Blood Count 9.8 x10^3/uL (4.0-11.0) Red Blood Count 3.69 x10^6/uL (3.50-5.40) Hemoglobin 11.6 g/dL (12.0-15.5) L Hematocrit 35.4 % (36.0-47.0) L Mean Corpuscular Volume 96 fL (79-100) Mean Corpuscular Hemoglobin 31 pg (25-35) Mean Corpuscular Hemoglobin Concent 33 g/dL (31-37) Red Cell Distribution Width 14.4 % (11.5-14.5) Platelet Count 175 x10^3/uL (140-400) Neutrophils (%) (Auto) 56 % (31-73) Lymphocytes (%) (Auto) 25 % (24-48) Monocytes (%) (Auto) 8 % (0-9) Eosinophils (%) (Auto) 11 % (0-3) H Basophils (%) (Auto) 1 % (0-3) Neutrophils # (Auto) 5.4 x10^3uL (1.8-7.7) Lymphocytes # (Auto) 2.4 x10^3/uL (1.0-4.8) Monocytes # (Auto) 0.8 x10^3/uL (0.0-1.1) Eosinophils # (Auto) 1.0 x10^3/uL (0.0-0.7) H Basophils # (Auto) 0.1 x10^3/uL (0.0-0.2) Sodium Level 149 mmol/L (136-145) H Potassium Level 4.3 mmol/L (3.5-5.1) Chloride Level 112 mmol/L (98-107) H Carbon Dioxide Level 30 mmol/L (21-32) Anion Gap 7 (6-14) Blood Urea Nitrogen 59 mg/dL (7-20) H Creatinine 0.7 mg/dL (0.6-1.0) Estimated GFR (Cockcroft-Gault) 83.7 BUN/Creatinine Ratio 84 (6-20) H Glucose Level 100 mg/dL (70-99) H Calcium Level 9.1 mg/dL (8.5-10.1) Total Bilirubin 0.2 mg/dL (0.2-1.0) Aspartate Amino Transferase (AST) 15 U/L (15-37) Alanine Aminotransferase (ALT) 18 U/L (14-59) Alkaline Phosphatase 84 U/L (46-116) Total Protein 6.9 g/dL (6.4-8.2) Albumin 2.8 g/dL (3.4-5.0) L Albumin/Globulin Ratio 0.7 (1.0-1.7) L Current Medications: I have reviewed the current psychotropics carefully including drug interactions. Risk benefit ratio favors no change other than as noted in my dictated progress note. Diagnosis: Problems: (1) Severe major depression with psychotic features (2) Adjustment disorder with depressed mood (3) Bipolar affective, mixed (4) Impulse control disorder (5) Dementia, vascular, with delusions (6) Dementia, vascular, with depression (7) Bipolar affective, mixed, sev w/ psych HARVEY QUIJANO MD Feb 28, 2019 20:48
[2019-02-28] MEDS: CYPROHEPTADINE 4 MG TABLET. PO SCH (20:58)
[2019-02-28] MEDS: CETIRIZINE HCL 10 MG TABLET PO SCH (20:59)
[2019-02-28] MEDS: ATORVASTATIN CALCIUM 10 MG TABLET. PO SCH (20:59)
[2019-02-28] MEDS: MIRTAZAPINE 15 MG TABLET PO SCH (20:59)
--- NOTE | 2019-02-28 23:30 | NUR ---
Nursing Note Irritable, angry, verbally abusive, resistant to meds multiple tries, finally takes meds with max encouragement.
[2019-03-01] MEDS ORDERED: CYPR4TAB31 PO (02:41)
[2019-03-01] MEDS ORDERED: DIVA125C2 PO (03:02)
[2019-03-01] MEDS ORDERED: ZINC113C8 TP (03:06)
[2019-03-01] MEDS ORDERED: VITS56.72 TP (03:10)
[2019-03-01] MEDS ORDERED: CLOT15CR4 TP (03:13)
[2019-03-01] MEDS ORDERED: FLUV100C PO (03:24)
[2019-03-01] MEDS: LEVOTHYROXINE 50 MCG TABLET PO SCH (06:00)
[2019-03-01 06:32] VITALS: BP 97/63
[2019-03-01] MEDS: PANTOPRAZOLE 40 MG TABLET. PO SCH (07:30)
[2019-03-01] MEDS: levETIRAcetam 500 MG TABLET PO SCH ×2 (12:50→20:59)
[2019-03-01] MEDS: CHOLECALCIFEROL (VITAMIN D3) 1,000 UNIT TABLET PO SCH (12:51)
[2019-03-01] MEDS: QUEtiapine 25 MG TABLET. PO SCH ×2 (12:51→20:59)
[2019-03-01] MEDS: PHENobarbital 32.4 MG TABLET. PO SCH ×2 (12:51→20:57)
[2019-03-01] MEDS: LACOSAMIDE 50 MG TABLET PO SCH ×2 (12:52→20:57)
[2019-03-01] MEDS: FELBAMATE 400 MG TABLET PO SCH ×3 (12:52→20:57)
[2019-03-01] MEDS: traMADol 50 MG TABLET PO SCH ×2 (12:52→20:59)
[2019-03-01] MEDS: LACTOBACILLUS RHAMNOSUS GG 1 CAPSULE. PO SCH ×2 (12:52→20:57)
[2019-03-01] MEDS: busPIRone 15 MG TABLET. PO SCH ×2 (12:52→17:00)
[2019-03-01] MEDS: POTASSIUM CHLORIDE 20 MEQ TABLET.ER. PO SCH ×2 (12:53→20:58)
[2019-03-01] MEDS: DIVALPROEX 125 MG CAP.SPRINK PO SCH ×2 (12:53→20:57)
[2019-03-01] MEDS: NYSTATIN TOPICAL POWDER 15GM BOTTLE. TP SCH ×2 (12:54→21:00)
[2019-03-01 16:10] VITALS: BP 102/63
--- NOTE | 2019-03-01 17:16 | NUR ---
Slept in bed til noon. When awoke and taken to lunch, would not stop yelling, non compliant with meds. After moving to quiet xiong, continued to refuse all cares, meds crushed and put in ensure milk shake, Perhaps drank 50% of them. Demanding to go back to bed. 14:00 meds scheduled were not given r/t refusal and sleep.
--- NOTE | 2019-03-01 18:02 | NUR ---
1700 scheduled med not given r/t pt's refusal and sleep. Resting with no observed distress in bed, HOB elevated 20 degrees.
--- NOTE | 2019-03-01 20:34 | PDOC ---
Exam Note: David Note: Please also refer to the separate dictated note~for this date of service dictated separately.~Patient seen individually. Discussed the patient with Nursing staff reviewed the chart.~Reviewed interim history and current functioning. Reviewed vital signs,~Labs/ Radiology~and current medications noted below. Continue current treatment with the changes noted in the dictated addendum note Assessment: Vital Signs/I&O: Vital Signs Date Time Temp Pulse Resp B/P (MAP) Pulse Ox O2 Delivery O2 Flow Rate FiO2 03/01/19 16:33 16 93 03/01/19 16:10 97.5 88 102/63 (76) 03/01/19 06:32 2.0 02/28/19 14:05 Room Air I & O 02/28/19 02/28/19 03/01/19 15:00 23:00 07:00 Intake Total 240 ml 720 ml Balance 240 ml 720 ml Current Medications: I have reviewed the current psychotropics carefully including drug interactions. Risk benefit ratio favors no change other than as noted in my dictated progress note. Diagnosis: Problems: (1) Severe major depression with psychotic features (2) Adjustment disorder with depressed mood (3) Bipolar affective, mixed (4) Impulse control disorder (5) Dementia, vascular, with delusions (6) Dementia, vascular, with depression (7) Sepsis (8) Bipolar affective, mixed, sev w/ psych (9) UTI (urinary tract infection) HARVEY QUIJANO MD Mar 01, 2019 20:34
[2019-03-01] MEDS: ATORVASTATIN CALCIUM 10 MG TABLET. PO SCH (20:56)
[2019-03-01] MEDS: CETIRIZINE HCL 10 MG TABLET PO SCH (20:58)
[2019-03-01] MEDS: MIRTAZAPINE 15 MG TABLET PO SCH (20:58)
[2019-03-01] MEDS: CYPROHEPTADINE 4 MG TABLET. PO SCH (20:59)
[2019-03-01] MEDS: CLOTRIMAZOLE 1% VAGINAL CREAM 45GM TUBE. VG SCH (21:00)
--- NOTE | 2019-03-01 23:03 | PN ---
DATE: 02/27/2019 PSYCHIATRIC PROGRESS NOTE This late entry of 02/27 covers elements not covered in my initial note. SUBJECTIVE: I met with the patient in the evening. The patient slept just 1 hour the previous evening. Per LION Hsu, she had a difficult day. Slept in, in the morning, calling nursing staff "stupid" and "ugly." When she was administered her medications, she dumped her Seroquel and Zyprexa, and the tray. Meds had to be given syringed. We will check a UA, make sure she does not have a UTI worsening her agitation. REVIEW OF SYSTEMS: Ambulation impaired, in wheelchair. No CV, , pulmonary, eye system symptoms on review. MENTAL STATUS EXAMINATION: Oriented to herself and situation. Speech has some latency, coherent; can be rapid, loud, shrill at times. Abstraction fair, computation impaired, language function intact, attention span short. Mood and affect remains labile. LABORATORY DATA: Reviewed. IMPRESSION: Unchanged from initial note. PLAN: No change from initial note. We will check UA, rule out UTI, encourage compliance and consider IM scheduled for psychotropics if needed. MAN Luis QUIJANO MD DR: LOYD/eboni JOB#: [id number] / [id number]
--- NOTE | 2019-03-01 23:45 | NUR ---
Pt quite in bed with eyes closed, appears to sleep.
--- NOTE | 2019-03-01 23:50 | PN ---
DATE: 02/28/2019 PSYCHIATRIC PROGRESS NOTE This late entry 02/28/2019 covers elements not covered in my initial note. SUBJECTIVE: I met with the patient in the evening. The patient slept 8-1/2 hours previous night. BUN 59. She is angry at lunchtime, had to be in the quiet hallway, meds given in Boost. REVIEW OF SYSTEMS: Ambulation impaired, in wheelchair. No CV, , PULMONARY, EYE system symptoms on review. Reliability poor. MENTAL STATUS EXAM: Oriented to herself and situation. Speech coherent, can be rapid, loud at times. Abstraction fair, computation impaired, language function intact, attention span short. Mood and affect remain somewhat labile. LABORATORY DATA: Reviewed. IMPRESSION: Unchanged from initial note. PLAN: No change from initial note. MAN Luis QUIJANO MD DR: LOYD/eboni JOB#: [id number] / [id number]
[2019-03-02] MEDS: LEVOTHYROXINE 50 MCG TABLET PO SCH (04:40)
[2019-03-02 05:49] VITALS: BP 96/57
[2019-03-02] MEDS: LEVOTHYROXINE 75 MCG TABLET PO SCH (06:00)
[2019-03-02] MEDS: PHENobarbital 32.4 MG TABLET. PO SCH ×2 (09:00→20:14)
[2019-03-02] MEDS: levETIRAcetam 500 MG TABLET PO SCH ×2 (09:00→20:15)
[2019-03-02] MEDS: CHOLECALCIFEROL (VITAMIN D3) 1,000 UNIT TABLET PO SCH (09:00)
[2019-03-02] MEDS: LACOSAMIDE 50 MG TABLET PO SCH ×2 (09:00→20:14)
[2019-03-02] MEDS: busPIRone 15 MG TABLET. PO SCH ×2 (09:00→17:18)
[2019-03-02] MEDS: NYSTATIN TOPICAL POWDER 15GM BOTTLE. TP SCH ×2 (09:00→20:15)
[2019-03-02] MEDS: DIVALPROEX 125 MG CAP.SPRINK PO SCH ×2 (09:00→20:12)
[2019-03-02] MEDS: FELBAMATE 400 MG TABLET PO SCH ×3 (09:00→20:13)
[2019-03-02] MEDS: traMADol 50 MG TABLET PO SCH ×2 (09:01→20:12)
[2019-03-02] MEDS: POTASSIUM CHLORIDE 20 MEQ TABLET.ER. PO SCH ×2 (09:01→20:13)
[2019-03-02] MEDS: LACTOBACILLUS RHAMNOSUS GG 1 CAPSULE. PO SCH ×2 (09:01→20:12)
[2019-03-02] MEDS: QUEtiapine 25 MG TABLET. PO SCH ×2 (09:01→20:13)
[2019-03-02] MEDS: PANTOPRAZOLE 40 MG TABLET. PO SCH (09:01)
--- NOTE | 2019-03-02 10:36 | NUR ---
Nursing note: Pt in her room for morning meds and assessment. Pt was sleeping and became irritable when woken up, demanding to be left alone so she could continue sleeping. She was compliant with taking her meds whole and was cooperative with her assessment. Pt is currently laying in bed sleeping.
[2019-03-02] MEDS: traMADol 50 MG TABLET PO PRN (13:25)
--- NOTE | 2019-03-02 14:00 | NUR ---
Nursing note: Pt complained of back pain. PRN tramadol was given at 1325. Will continue to monitor.
[2019-03-02 15:40] VITALS: BP 109/75
--- NOTE | 2019-03-02 15:59 | NUR ---
[facility] Social Work Discharge Planning Form Patient Name LUZMA BALDERAS Admit Date: 02/04/19 DISCHARGE PLAN Discharge Destination: Back to [facility] Assessment: Completed Level II Assessment: N/A Transportation: Facility scheduled transport for pt around 10:30 Special Instructions/Notes: Please fax over all discharge orders and the medication list to the fax number listed below. DISCHARGE TO FACILITY Facility: [facility] Fax: [phone] Address: [address] [place] [id number] Contact Name: Alice Uribe SW: Contact Name: Please call and speak to the nurse caring for pt upon admission. PCP: Dalton Jara
[2019-03-02] MEDS: MIRTAZAPINE 15 MG TABLET PO SCH (20:11)
[2019-03-02] MEDS: CYPROHEPTADINE 4 MG TABLET. PO SCH (20:12)
[2019-03-02] MEDS: ATORVASTATIN CALCIUM 10 MG TABLET. PO SCH (20:13)
--- NOTE | 2019-03-02 20:13 | PDOC ---
Exam Note: David Note: Please also refer to the separate dictated note~for this date of service dictated separately.~Patient seen individually. Discussed the patient with Nursing staff reviewed the chart.~Reviewed interim history and current functioning. Reviewed vital signs,~Labs/ Radiology~and current medications noted below. Continue current treatment with the changes noted in the dictated addendum note Assessment: Vital Signs/I&O: Vital Signs Date Time Temp Pulse Resp B/P (MAP) Pulse Ox O2 Delivery O2 Flow Rate FiO2 03/02/19 15:40 97.5 88 18 109/75 (86) 93 03/02/19 05:49 Room Air 03/01/19 06:32 2.0 I & O 0 03/01/19 03/01/19 03/02/19 15:00 23:00 07:00 Intake Total 480 ml 0 ml 100 ml Balance 480 ml 0 ml 100 ml Current Medications: I have reviewed the current psychotropics carefully including drug interactions. Risk benefit ratio favors no change other than as noted in my dictated progress note. Diagnosis: Problems: (1) Severe major depression with psychotic features (2) Adjustment disorder with depressed mood (3) Bipolar affective, mixed (4) Impulse control disorder (5) Dementia, vascular, with delusions (6) Dementia, vascular, with depression (7) Bipolar affective, mixed, sev w/ psych HARVEY QUIJANO MD Mar 02, 2019 20:13
[2019-03-02] MEDS: CETIRIZINE HCL 10 MG TABLET PO SCH (20:14)
--- NOTE | 2019-03-03 00:55 | PN ---
DATE: 03/01/2019 PSYCHIATRIC PROGRESS NOTE This late entry of 03/01 covers elements not covered in my initial note. SUBJECTIVE: I met with the patient on the evening of 03/01. The patient remains withdrawn to her room. BUN and creatinine is elevated. We will defer to Dr. Ackerman. The patient is refusing medications; can be little loud, verbally abrasive, irritable. The urine culture is pending. REVIEW OF SYSTEMS: Ambulation impaired, in wheelchair. No CV, , pulmonary, eye system symptoms on review. MENTAL STATUS EXAMINATON: Oriented to herself and situation. Speech as noted, abstraction fair, computation impaired, language function intact, attention span short. Mood and affect remains withdrawn. LABORATORY DATA: Reviewed. IMPRESSION: Unchanged from initial note. PLAN: No change from initial note. MAN Luis QUIJANO MD DR: LOYD/eboni JOB#: [id number] / [id number]
--- NOTE | 2019-03-03 01:13 | NUR ---
Nursing Note the patient was located in the day room for her medication and assessment. The patient took her medication whole. The patient began yelling after she received her medication. The patient continued yelling until she was taken to bed. The patient is currently sleeping in her room.
[2019-03-03 06:24] VITALS: BP 95/60
[2019-03-03] MEDS: LEVOTHYROXINE 75 MCG TABLET PO SCH (06:26)
[2019-03-03] MEDS: DIVALPROEX 125 MG CAP.SPRINK PO SCH (09:45)
[2019-03-03] MEDS: QUEtiapine 25 MG TABLET. PO SCH (09:45)
[2019-03-03] MEDS: PHENobarbital 32.4 MG TABLET. PO SCH (09:45)
[2019-03-03] MEDS: NYSTATIN TOPICAL POWDER 15GM BOTTLE. TP SCH (09:45)
[2019-03-03] MEDS: busPIRone 15 MG TABLET. PO SCH (09:46)
[2019-03-03] MEDS: FELBAMATE 400 MG TABLET PO SCH (09:46)
[2019-03-03] MEDS: traMADol 50 MG TABLET PO SCH (09:46)
[2019-03-03] MEDS: LACOSAMIDE 50 MG TABLET PO SCH (09:46)
[2019-03-03] MEDS: CHOLECALCIFEROL (VITAMIN D3) 1,000 UNIT TABLET PO SCH (09:46)
[2019-03-03] MEDS: PANTOPRAZOLE 40 MG TABLET. PO SCH (09:47)
[2019-03-03] MEDS: POTASSIUM CHLORIDE 20 MEQ TABLET.ER. PO SCH (09:47)
[2019-03-03] MEDS: LACTOBACILLUS RHAMNOSUS GG 1 CAPSULE. PO SCH (09:47)
[2019-03-03] MEDS: levETIRAcetam 500 MG TABLET PO SCH (09:47)
[2019-03-03] MEDS: QUEtiapine 25 MG TABLET. PO PRN (10:38)
--- NOTE | 2019-03-03 11:04 | NUR ---
Nursing note: Pt was in her room for morning meds and assessment. She was compliant with taking her meds whole and was calm throughout her assessment. Pt remained pleasant throughout interaction and was not demanding or yelling.
--- NOTE | 2019-03-03 12:30 | NUR ---
Transition Record was faxed to follow-up provider with the following elements: Reason for admission, procedures, tests, principal diagnosis, pending studies, patient instructions, 05/11 contact information for unit, phone number to obtain pending test results, plan for follow-up care, physician follow-up, advanced directive information, and medication list with dose, duration and instructions. This information was included in the following documents: History and physical, lab results, study results, progress notes, social work planning form, DC instruction form, patient visit summary, and medication reconciliation form. Date & time record faxed: 03/03/19 @ 0926 Record faxed to: [facility] rafael Hinds [phone] Record discussed with/ report given to: This nurse called twice to give report and left a message. Facility has not called back to receive report.
--- NOTE | 2019-03-03 15:10 | NUR ---
Attempted to call and give report to [facility] twice. This nurse left a message for them to return my call. The facility has not called back to receive report.
--- NOTE | 2019-03-03 19:49 | PDOC ---
Exam Note: David Note: Please also refer to the separate dictated note~for this date of service dictated separately.~Patient seen individually. Discussed the patient with Nursing staff reviewed the chart.~Reviewed interim history and current functioning. Reviewed vital signs,~Labs/ Radiology~and current medications noted below. Continue current treatment with the changes noted in the dictated addendum note Assessment: Vital Signs/I&O: Vital Signs Date Time Temp Pulse Resp B/P (MAP) Pulse Ox O2 Delivery O2 Flow Rate FiO2 03/03/19 10:59 92 03/03/19 06:24 96.8 70 14 95/60 (72) 03/02/19 21:12 Room Air 03/01/19 06:32 2.0 I & O 03/02/19 03/02/19 03/03/19 14:59 22:59 06:59 Intake Total 480 ml 240 ml 100 ml Balance 480 ml 240 ml 100 ml Current Medications: I have reviewed the current psychotropics carefully including drug interactions. Risk benefit ratio favors no change other than as noted in my dictated progress note. Diagnosis: Problems: (1) Severe major depression with psychotic features (2) Adjustment disorder with depressed mood (3) Bipolar affective, mixed (4) Impulse control disorder (5) Dementia, vascular, with delusions (6) Dementia, vascular, with depression (7) Bipolar affective, mixed, sev w/ psych (8) UTI (urinary tract infection) HARVEY QUIJANO MD Mar 03, 2019 19:49
--- NOTE | 2019-03-03 20:36 | PN ---
DATE: 03/02/2019 This late entry, 03/02/2019, covers the elements not covered in my initial note. SUBJECTIVE: I met with the patient in the evening. The patient slept 9-3/4 hours previous night per LION Chau. The patient is compliant with her medications, spending much time in bed, stayed in bed for breakfast and lunch, later came to the day room, irritable at times, took her meds later. Urine C and S is awaited, we will defer to Dr. Ackerman. REVIEW OF SYSTEMS: Ambulation impaired, in wheelchair. No CV, , pulmonary, or eye system symptoms on review. MENTAL STATUS EXAM: The patient is oriented to herself and situation. Speech has some latency, can be loud at times. Abstraction fair, computation impaired, language function intact, and attention span short. Mood and affect somewhat anxious, labile. LABORATORY DATA: Reviewed. IMPRESSION: Unchanged from initial note. PLAN: No change from initial note. HARVEY QUIJANO MD DR: LOYD/eboni JOB#: [id number] / [id number]
--- NOTE | 2019-03-04 09:37 | DS ---
DATE OF DISCHARGE: 03/03/2019 DISCHARGE SUMMARY/PSYCHIATRIC PROGRESS NOTE This late entry 03/03/2019 covers the elements not covered in my initial note. REASON FOR ADMISSION: Please refer to the admission history for details. Briefly, the patient is a 64-year-old female readmitted to us from the ICU after she was initially presented from [facility] on account of marked mood vacillation, agitation, aggression, delusions, worsening confusion within the context of multiple medical issues. She was stabilized in the ICU. Behaviors persisted with marked mood lability, delusion, paranoia, anger, aggression and she was readmitted to our unit for stabilization. SIGNIFICANT FINDINGS AND CLINICAL COURSE: Following admission, the patient was seen daily individually by myself from a psychiatric standpoint, medical followup with Dr. Ackerman. The patient had a very difficult course during this hospitalization. Despite multiple changes in her psychotropics, she continued to have marked mood lability, agitation, paranoia. At one time, she was evaluated for hospice care, but declined by them. She did have a UTI even at the time of discharge, which was worsening her irritability. Nevertheless, despite all this, she did seem to finally do a little better on a combination of BuSpar 15 mg twice a day, Remeron 22.5 mg at bedtime, trazodone 50 mg at bedtime p.r.n., may repeat x 1, Seroquel 25 mg b.i.d. plus p.r.n. q. 4 hours together with Zyprexa p.r.n. and she was on phenobarbital 64.8 mg b.i.d. for seizures along with Vimpat 200 b.i.d., Keppra 500 b.i.d., Felbamate 400 t.i.d. and Luvox was initiated and adjusted to 100 mg a day for her obsessiveness, anxiety, irritability. She is also on Depakote Sprinkles 375 mg b.i.d. with a therapeutic level at 50 and Periactin 4 mg at bedtime to help stimulate her appetite. REVIEW OF SYSTEMS: Prior to discharge on 03/03/2019, ambulation impaired, in wheelchair. No CV, , pulmonary, eye, ENT system symptoms on review. She has vague somatic symptoms. Reliability poor. MENTAL STATUS EXAM: Oriented to herself and situation. Speech coherent, can be loud at times. Abstraction fair, computation impaired, language function intact, attention span short. Mood and affect remains labile, but improved. LABORATORY DATA: Reviewed. FINAL DIAGNOSES: Bipolar 1 disorder, mixed with psychotic features; major neurocognitive disorder, Alzheimer, vascular with delusion, depression; anxiety disorder, unspecified; obsessive-compulsive disorder, urinary tract infection. Rest unchanged from admission. DISCHARGE MEDICATIONS: Please refer to the [facility]. DISCHARGE INSTRUCTIONS: Outpatient psychiatric and medical followup at the long term. MAN Luis QUIJANO MD DR: LOYD/eboni JOB#: [id number] / [id number]
== END 2019-03-03 12:30 | DRG 885 ==
LOC: GEROPSY 18:20
PROVIDERS: ADMIT Psychiatry & Neurology Psychiatry; ATTEND Psychiatry & Neurology Psychiatry
DX: F31.64 Bipolar disorder, current episode mixed, severe, with psychotic features (principal); E43 Unspecified severe protein-calorie malnutrition; N39.0 Urinary tract infection, site not specified; E87.0 Hyperosmolality and hypernatremia; G40.909 Epilepsy, unspecified, not intractable, without status epilepticus; F63.9 Impulse disorder, unspecified; F42.9 Obsessive-compulsive disorder, unspecified; E78.5 Hyperlipidemia, unspecified; F41.9 Anxiety disorder, unspecified; K21.9 Gastro-esophageal reflux disease without esophagitis; E87.6 Hypokalemia; I10 Essential (primary) hypertension; F01.50 Vascular dementia, unspecified severity, without behavioral disturbance, psychotic disturbance, mood disturbance, and anxiety; G30.9 Alzheimer's disease, unspecified; F02.80 Dementia in other diseases classified elsewhere, unspecified severity, without behavioral disturbance, psychotic disturbance, mood disturbance, and anxiety; F43.21 Adjustment disorder with depressed mood; Z91.14 Patient's other noncompliance with medication regimen; Z88.8 Allergy status to other drugs, medicaments and biological substances; Z68.29 Body mass index [BMI] 29.0-29.9, adult
CPT/HCPCS: 36415; 80053; 80164; 80185; 81001; 82140; 83605; 85007; 85025; 87086; 87186; 87493; J1630; J2060; J7030

== ENCOUNTER 2019-06-08 17:41 | Inpatient (IN) | payer MEDICARE, OTHER ==
[~2019-06-08] VITALS: Ht 160 cm; Wt 62.7 kg
[~2019-06-08 17:41] MED LIST changes: +CLOT15CR4 TP; +CYPR4TAB31 PO; +FLUV100C PO; -MAGN2400 PO; +MAGN24003 PO; +VITS56.72 TP; +ZINC113C8 TP
--- NOTE | 2019-06-08 19:04 | PHYS DOC ---
Past History Past Medical History: Anemia, Bipolar, Constipation, Dementia, GERD, Hypothyroid, Pneumonia, Seizure, UTI Past Surgical History: No Surgical History Smoking: Non-smoker Alcohol Use: None Drug Use: None Adult General Chief Complaint Chief Complaint: MEDICAL CLEARANCE [facility] HPI 64 year old female presents for medical clearance and then behavioral health admission. The patient was not preset at the scene behavioral floor. She has been admitted here before. She comes from her care facility because she has not been eating, drinking, taking her meds. She is also been hitting other people. She had been repeating things over and over time. Telling people to "leave her alone" and similar statements. Review of Systems Review of Systems Limited due to dementia. Constitutional: Denies fever or chills [] Eyes: Denies change in visual acuity, redness, or eye pain [] HENT: Denies nasal congestion or sore throat [] Respiratory: Denies cough or shortness of breath [] Cardiovascular: No additional information not addressed in HPI [] GI: Denies abdominal pain, nausea, vomiting, bloody stools or diarrhea [] : Denies dysuria or hematuria [] Musculoskeletal: Denies back pain or joint pain [] Integument: Denies rash or skin lesions [] Neurologic: Denies headache, focal weakness or sensory changes [] Endocrine: Denies polyuria or polydipsia [] All other systems were reviewed and found to be within normal limits, except as documented in this note. Allergies Allergies Allergies Coded Allergies Type Severity Reaction Last Updated Verified clobazam Allergy Intermediate 02/09/19 Yes hydrocodone Allergy Intermediate 10/10/17 Yes vancomycin Allergy Intermediate 10/10/17 Yes Physical Exam Physical Exam Constitutional: Well developed, well nourished, no acute distress, non-toxic appearance. [] HENT: Normocephalic, atraumatic, bilateral external ears normal, oropharynx moist, no oral exudates, nose normal. [] Eyes: PERRLA, EOMI, conjunctiva normal, no discharge. [] Neck: Normal range of motion, no tenderness, supple, no stridor. [] Cardiovascular: Heart rate regular rhythm, no murmur [] Lungs & Thorax: Bilateral breath sounds clear to auscultation [] Abdomen: Bowel sounds normal, soft, no tenderness, no masses, no pulsatile masses. [] Skin: Warm, dry, no erythema, no rash. [] Back: No tenderness, no CVA tenderness. [] Extremities: No tenderness, no cyanosis, no clubbing, ROM intact, no edema. [] Neurologic: Alert and oriented to self, normal motor function, normal sensory function, no focal deficits noted. [] Psychologic: Affect belligerent, judgement compromised, mood angry. [] Current Patient Data Vital Signs Vital Signs Date Time Temp Pulse Resp B/P (MAP) Pulse Ox O2 Delivery O2 Flow Rate FiO2 06/08/19 18:29 88 18 114/55 (74) 98 EKG EKG [] Radiology/Procedures Radiology/Procedures [] Course & Med Decision Making Course & Med Decision Making Pertinent Labs and Imaging studies reviewed. (See chart for details) Patient's labs are unremarkable. Her urinalysis is significant for a UTI. The patient's current state, I don't believe she can be adequately screened for psychiatric admission. I ordered 2 mg of Ativan IM and give her Rocephin for her urinary tract infection. I spoke with the psychiatrist during the screening and he believes the patient can be admitted to behavioral health and treated for the UTI on the floor. It sounds as though the patient is having behavioral issues prior to the acute worsening delirium with a UTI. She will be admitted to the medical floor for acute treatment and then likely transfer to the behavioral health floor. I spoke with Dr. Ackerman and he has accepted the patient for admission. Dragon Disclaimer Dragon Disclaimer This electronic medical record was generated, in whole or in part, using a voice recognition dictation system. Departure Departure: Impression: Primary Impression: urinary tract infection Additional Impression: Medical clearance for psychiatric admission Disposition: ADMITTED INPATIENT Admitting Physician: Domitila Ackerman Condition: STABLE Referrals: NELLY GONZALEZ MD (PCP) Problem Qualifiers SABAS LARA DO Jun 08, 2019 19:03
[2019-06-08 19:19] LABS: CALCIUM 9.1 mg/dL (8.5-10.1); CREATININE 0.8 mg/dL (0.6-1.0); GFR 71.8
[2019-06-08 19:24] LABS: BASO # 0.1 x10^3/uL (0.0-0.2); BASO % 1 % (0-3); EOS # 0.3 x10^3/uL (0.0-0.7); EOS % 4 % (0-3); HEMATOCRIT 44.1 % (36.0-47.0); HEMOGLOBIN 14.6 g/dL (12.0-15.5); LYMPH # 2.9 x10^3/uL (1.0-4.8); LYMPH % 34 % (24-48); MEAN CORPUSCULAR HEMOGLOBIN 32 pg (25-35); MEAN CORPUSCULAR HGB CONC 33 g/dL (31-37); MEAN CORPUSCULAR VOLUME 97 fL (79-100); MONO % 11 % (0-9); NEUT # 4.3 x10^3uL (1.8-7.7); NEUT % 50 % (31-73); PLATELET COUNT 209 x10^3/uL (140-400); RED BLOOD COUNT 4.57 x10^6/uL (3.50-5.40); RED CELL DISTRIBUTION WIDTH 13.9 % (11.5-14.5); WHITE BLOOD COUNT 8.7 x10^3/uL (4.0-11.0)
[2019-06-08 19:26] LABS: ALBUMIN 3.4 g/dL (3.4-5.0); ALBUMIN/GLOBULIN RATIO 0.8 (1.0-1.7); TOTAL BILIRUBIN 0.3 mg/dL (0.2-1.0); TOTAL PROTEIN 7.5 g/dL (6.4-8.2)
[2019-06-08 19:42] LABS: BACTERIA,URINE MANY /HPF (0-FEW); BILIRUBIN,URINE SMALL (NEG); CLARITY,URINE TURBID; COLOR,URINE AMBER; GLUCOSE,URINE NEG (NEG); NITRITE,URINE POS (NEG); SQUAMOUS EPITHELIAL CELL,UR OCC /LPF
[2019-06-08 20:23] LABS: PLT ESTIMATE ADEQUATE (ADEQUATE)
[2019-06-08] MEDS ORDERED: IV NORMAL SALINE 50ML 50 ML ONE (20:43)
[2019-06-08] MEDS ORDERED: cefTRIAXone SODIUM 1 GM VIAL ONE (20:43)
[2019-06-08] MEDS ORDERED: risperiDONE ODT 1 MG TAB.RAPDIS. PO PRN (23:45)
[2019-06-08 23:58] VITALS: BP 93/65
[2019-06-09] MEDS ORDERED: IBUP200T44 PO (04:35)
[2019-06-09] MEDS ORDERED: QUET100T4 PO (04:35)
[2019-06-09] MEDS ORDERED: POLY17PO5 PO (04:35)
[2019-06-09] MEDS ORDERED: MINE50OI TP (04:35)
[2019-06-09] MEDS ORDERED: LEVO75TA5 PO (04:35)
[2019-06-09] MEDS ORDERED: LORA10TA3 PO (04:35)
[2019-06-09 06:04] VITALS: BP 99/74
[2019-06-09 09:00] VITALS: BP 95/65
[2019-06-09 13:00] VITALS: BP 109/71
--- NOTE | 2019-06-09 18:35 | HP ---
ADMIT DATE: 06/08/2019 HISTORY OF PRESENT ILLNESS: The patient is a 64-year-old female patient, a resident at [facility] who presented to the Emergency Room for medical clearance and then prior to admission to [facility]. She was brought to the Emergency Room as the patient has not been eating, drinking or taking her medication. She has also been hitting other people. She has been repeating things over and over time telling people to leave her alone and similar statement. She was evaluated in the Emergency Room and was investigated. Her lab works were remarkably normal. She is slightly dehydrated. The urinalysis was positive for nitrite and there was 11-20 wbc's, and many bacteria and the patient was admitted with a diagnosis of urinary tract infection, was started on IV Rocephin. PAST MEDICAL HISTORY: Significant for hyperlipidemia, hypothyroidism, urinary incontinence with seizure disorder. PAST SURGICAL HISTORY: Unremarkable. PAST PSYCHIATRIC HISTORY: Significant for multiple psychiatric hospitalizations for bipolar disorder, mixed, with psychotic features. CODE STATUS: Full. ALLERGIES: She is allergic to CLOBAZAM, HYDROCODONE AND VANCOMYCIN. FAMILY HISTORY: Noncontributory. SOCIAL HISTORY: She is a resident at [facility]. She does not smoke, drink alcohol or use any recreational drugs. REVIEW OF SYSTEMS: As per history of present illness. PHYSICAL EXAMINATION: GENERAL: On arrival to the Emergency Room, the patient looked well-developed, well-nourished, in no acute distress. VITAL SIGNS: Her heart rate was 88, blood pressure 114/55, temperature was 98, respiratory rate was 18 and oxygen saturation was 98% on room air. HEAD, EYES, EARS, NOSE AND THROAT: Normocephalic, atraumatic. NECK: Supple. CARDIAC: Normal first and second heart sounds. No gallop or murmur. CHEST: Clear to auscultation. No crepitation or rhonchi. ABDOMEN: Distended, soft, nontender. NEUROLOGIC: She is alert, oriented to self. EXTREMITIES: She moves all extremities without difficulty, although she is always bedbound. She is very combative, confrontational. LABORATORY DATA: Her lab work on arrival to the Emergency Room showed that her white cell count was 8700, hemoglobin 14.6, hematocrit 44, MCV 97 and platelet count 209,000. Her serum sodium was 145, potassium 4, chloride 105, bicarbonate 27, anion gap of 13, BUN 38, creatinine 0.8, estimated GFR was 72 mL per minute. Her glucose was 109, calcium was 9.1, magnesium 2. Total bilirubin, AST, ALT, alkaline phosphatase were normal. Total protein was 7.5, albumin was 3.4. Urinalysis showed the urine was agnieszka, turbid with a pH of 6, specific gravity of 1.030. There was small amount of protein. The urine was negative for glucose, small amount of ketones, small amount of blood, positive for nitrite and negative for leukocyte esterase, 3-5 rbc's, 11-20 wbc's, and many bacteria. ASSESSMENT AND PLAN: In summary, this is a 64-year-old female patient who was basically brought to the Emergency Room. She has not been eating or drinking. She refused to take her medication. She also has been hitting other people. She has been repeating things over and over time telling people to leave her alone. She was found to have urinary tract infection. She was admitted to [address] [place] [address] for antibiotic treatment and once stabilized, she will be transferred to [facility] for inpatient psychiatric stabilization. JOHNIE LANDERS MD DR: DORIAN/eboni JOB#: [id number] / [id number]
[2019-06-09] MEDS: AA 3%/ELECTROLYTE-TPN SOLN/GLY 1,000 ML IV SCH (20:23)
[2019-06-09 20:44] VITALS: BP 104/65
[2019-06-10 01:11] VITALS: BP 105/71
[2019-06-10 05:39] VITALS: BP 96/66
[2019-06-10] MEDS: AA 3%/ELECTROLYTE-TPN SOLN/GLY 1,000 ML IV SCH ×2 (09:41→23:21)
[2019-06-10 11:00] VITALS: BP 101/70
[2019-06-10 15:12] VITALS: BP 94/68
[2019-06-10 19:23] VITALS: BP 96/61
[2019-06-10] MEDS: LACTOBACILLUS RHAMNOSUS GG 1 CAPSULE. PO SCH (21:00)
[2019-06-10 23:17] VITALS: BP 92/65
--- NOTE | 2019-06-11 01:59 | PN ---
DATE: SUBJECTIVE: The patient is resting, slightly propped up in bed, in no apparent distress. She continued to refuse to eat and drink, refused to take her medication, noted to be very combative, resistive to care. PHYSICAL EXAMINATION: GENERAL: On examining her, she looked somewhat pale, no jaundice, cyanosis or thyromegaly. No jugular venous distention. No limb edema. VITAL SIGNS: Her heart rate was 63, blood pressure 94/68, temperature 98, respiratory rate 16 and oxygen saturation was 94%. The rest of clinical examination is stable, has not really changed. LABORATORY DATA: Showed a BUN of 38, creatinine 0.8, hemoglobin was 14, hematocrit 44 with normal white cell count and platelets. She is on IV fluid. ASSESSMENT: This is a 64-year-old female patient who has been admitted to [facility] in this facility and also on numerous occasions. She has bipolar disorder, mixed with psychotic features, has been refusing to eat, drink, refusing to take her medication, resistive to care, very combative. She is now on procalamine. We consulted our social worker school as she is a candidate for hospice care. I will repeat lab works tomorrow and will decide on further management accordingly. JOHNIE LANDERS MD DR: DORIAN/eboni JOB#: [id number] / [id number]
[2019-06-11 05:53] VITALS: BP 98/69
[2019-06-11 06:28] LABS: HEMATOCRIT 37.4 % (36.0-47.0); HEMOGLOBIN 12.3 g/dL (12.0-15.5); RED BLOOD COUNT 3.94 x10^6/uL (3.50-5.40); RED CELL DISTRIBUTION WIDTH 13.9 % (11.5-14.5); WHITE BLOOD COUNT 5.3 x10^3/uL (4.0-11.0)
[2019-06-11 06:39] LABS: ALBUMIN 2.5 g/dL (3.4-5.0); ALBUMIN/GLOBULIN RATIO 0.7 (1.0-1.7); CALCIUM 8.2 mg/dL (8.5-10.1); CREATININE 0.4 mg/dL (0.6-1.0); GFR 159.7; POTASSIUM 4.1 mmol/L (3.5-5.1); TOTAL BILIRUBIN 0.2 mg/dL (0.2-1.0)
[2019-06-11] MEDS: AA 3%/ELECTROLYTE-TPN SOLN/GLY 1,000 ML IV SCH (08:15)
[2019-06-11] MEDS: LACTOBACILLUS RHAMNOSUS GG 1 CAPSULE. PO SCH (09:00)
[2019-06-11 11:00] VITALS: BP 98/64
--- NOTE | 2019-06-11 14:53 | DISCH ---
DISCHARGE ORDERS DISCHARGE DATE: Jun 11, 2019 FINAL DIAGNOSIS bipolar disorder with psychosis severe protein calorie malnutrition CONDITION AT DISCHARGE: Stable Code Status: Full SNF STAY <30 DAYS: No HOSPICE: Yes HOSPICE EVALUATE & TREAT: Yes POST DISCHARGE ORDERS: ACTIVITY ORDERS: No restrictions, Activity as tolerated WEIGHT BEARING STATUS: As tolerated DIET AFTER DISCHARGE: Regular WOUND/INCISION CARE: Keep wound/cast CDI CHECKS AFTER DISCHARGE: CHECKS AFTER DISCHARGE: Check blood press - daily TREATMENT/EQUIPMENT ORDERS: ADAPTIVE EQUIPMENT NEEDED: Wheelchair DISCHARGE MEDICATIONS: Home Meds Reported Medications Mineral Oil/Hydrophil Petrolat (AQUAPHOR HEALING OINTMENT) 50 Gm Oint...g., 1 LYNDSEY TP TWICE WEEKLY for dry skin for 30 Days, #120 GM 0 Refills 06/09/19 Quetiapine Fumarate (SEROQUEL) 100 Mg Tablet, 100 MG PO BID for agitation, TAB for 14 days--began 06/02/19, end 06/17/19 06/09/19 Loratadine (LORATADINE) 10 Mg Tablet, 10 MG PO HS for nasal congestion, TAB 06/09/19 Ibuprofen (MOTRIN IB) 200 Mg Tablet, 400 MG PO PRN Q4HRS PRN for PAIN, TAB 06/09/19 Polyethylene Glycol 3350 (MIRALAX) 17 Gm Powd.pack, 17 GM PO DAILY for constipation, PKT 06/09/19 Levothyroxine Sodium (LEVOTHYROXINE SODIUM) 75 Mcg Tablet, 75 MCG PO DAILYAC for THYROID SUPPLEMENT, #30 TAB 0 Refills 06/09/19 Fluvoxamine Maleate (FLUVOXAMINE MALEATE) 100 Mg Cap.er.24h, 100 MG PO DAILY for ocd, CAP.SR 03/01/19 Divalproex Sodium (DEPAKOTE SPRINKLE) 125 Mg Cap.sprink, 375 MG PO BID for mood, CAP 03/01/19 Quetiapine Fumarate (SEROQUEL) 25 Mg Tablet, 1 TAB PO BID for bid 02/01/19 Potassium Chloride (KLOR-CON M20) 20 Meq Tab.er.prt, 1 TAB PO BIDWMEALS for hypokalemia, 0 Refills 02/01/19 Buspirone Hcl (BUSPIRONE HCL) 15 Mg Tablet, 15 MG PO BIDWMEALS for mood stabilizer , TAB 06/03/18 Tramadol Hcl (TRAMADOL HCL) 50 Mg Tablet, 50 MG PO BID for pain, TAB 05/15/18 Tramadol Hcl (TRAMADOL HCL) 50 Mg Tablet, 50 MG PO PRN Q8HRS PRN for PAIN, TAB 05/15/18 Mirtazapine (REMERON) 15 Mg Tablet, 22.5 MG PO QHS for MDD 05/15/18 Methyl Salicylate/Menthol (Analgesic Silex) 28 Gm Oint...g., 1 LYNDSEY TP PRN QID PRN for MUSCLE PAIN, MISC 10/14/17 Mag Hydrox/Al Hydrox/Simeth (MAG-AL PLUS XS SUSPENSION) 30 Ml Oral.susp, 15 ML PO PRN AFTMEALHC PRN for DYSPEPSIA, LIQUID 10/14/17 Lacosamide (VIMPAT) 200 Mg Tablet, 200 MG PO BID for Seizures 10/14/17 Magnesium Hydroxide (MILK OF MAGNESIA) 2,400 Mg/10 Ml Oral.susp, 2400 MG PO PRN QHS PRN for CONSTIPATION, LIQUID 09/30/17 Atorvastatin Calcium (ATORVASTATIN CALCIUM) 10 Mg Tablet, 10 MG PO QHS for FOR CHOLESTEROL 09/30/17 Pantoprazole Sodium (PANTOPRAZOLE SODIUM) 40 Mg Tablet.dr, 40 MG PO DAILYAC for GERD 09/30/17 Cholecalciferol (Vitamin D3) (VITAMIN D3) 1,000 Unit Tablet, 1000 UNIT PO DAILY for Supplement 09/30/17 Phenobarbital (PHENOBARBITAL) 64.8 Mg Tablet, 64.8 MG PO BID for Seizures 09/30/17 Acetaminophen (TYLENOL) 325 Mg Tablet, 650 MG PO PRN Q6HRS PRN for PAIN / TEMP 04/24/13 Levetiracetam (KEPPRA) 250 Mg Tablet, 500 MG PO BID for Seizures 04/24/13 Felbamate (FELBAMATE) 400 Mg Tablet, 400 MG PO TID for Seizures 04/24/13 Discontinued Reported Medications Levothyroxine Sodium (LEVOTHYROXINE SODIUM) 50 Mcg Tablet, 75 MCG PO DAILY06 for THYROID SUPPLEMENT 12/18/17 JOHNIE LANDERS MD Jun 11, 2019 14:53
[2019-06-11 15:00] VITALS: BP 102/78
--- NOTE | 2019-06-11 15:43 | DS ---
DATE OF DISCHARGE: 06/11/2019 HOSPITAL COURSE: The patient is a 64-year-old female patient who was admitted to the Emergency Room again as she continued to refuse to eat and drink or take her medication. She had been hitting other people, had been repeating things over and over time, telling be able to leave her alone. She was evaluated in the Emergency Room. Her lab work showed that she was slightly dehydrated. She had also possible urinary tract infection and therefore she was started on IV antibiotic and her urine culture showed growth of more than 100,000 colony forming units per mL of gram-negative rods and as she had been in and out of this hospital in the senior behaviour unit numerous times and she was already on hospice before, our psychotherapist social worker spoke with her son and a decision was made to discharge her back to [facility] on hospice care. PHYSICAL EXAMINATION: GENERAL: When I saw her today, she looked well and was clearly in no apparent respiratory distress, pale, but no jaundice, cyanosis or thyromegaly. No jugular venous distention or lower limb edema. VITAL SIGNS: Her heart rate was 87, blood pressure was 98/69, temperature was 97.8, respiratory rate was 18 and her oxygen saturation was 92%. HEAD, EYES, EARS, NOSE AND THROAT: Showed normocephalic, atraumatic. NECK: Supple. HEART: Showed normal first and second heart sounds. No gallop or murmur. CHEST: Clear to auscultation. No crepitation or rhonchi. ABDOMEN: Distended, soft, nontender. NEUROLOGIC: She is awake, alert, very combative, aggressive, hitting. All her cranial nerves are intact. She moves extremities without difficulty, although she is mostly bed bound. LABORATORY DATA: Showed that her white cell count was 5300, hemoglobin 12, hematocrit 37, MCV 95 and platelet count 272,000. Her chemistry showed serum sodium 137, potassium 4.1, chloride 103, bicarbonate 27, anion gap of 7, BUN 29, creatinine 0.4, estimated GFR was 59 mL per minute. Her glucose 101, calcium was 8.2. Total bilirubin, AST, ALT, alkaline phosphatase were normal. Total protein was 6, albumin was 2.5. DISCHARGE MEDICATIONS: She was discharged back to [facility] to continue all her medications with a plan to consult hospice for evaluation and treatment. FINAL DISCHARGE DIAGNOSES: Severe major depression with psychotic features, adjustment disorder, depressed mood, bipolar affective, impulse control disorder, dementia, vascular with delusion, urinary tract infection, severe protein-calorie malnutrition, seizure disorder, hypothyroidism. JOHNIE LANDERS MD DR: DORIAN/eboni JOB#: [id number] / [id number]
--- NOTE | 2019-06-11 18:14 | PDOC ---
Exam Note: David Note: Admission Date: Jun 08, 2019 at 20:57 * A recertification for continued Inpatient Psychiatric Admission must be done on Day 12, Day 18 and Day 30. Please also refer to the separate dictated note~for this date of service dictated separately.~Patient seen individually. Discussed the patient with Nursing staff reviewed the chart.~Reviewed interim history and current functioning. Reviewed vital signs,~Labs/ Radiology~and current medications noted below. Continue current treatment with the changes noted in the dictated addendum note. This is a late entry for May. Assessment: Vital Signs: VS - Last 72 Hours, by Label Date Time Temp Pulse Resp B/P (MAP) Pulse Ox O2 Delivery O2 Flow Rate FiO2 06/11/19 11:00 74 17 98/64 (75) 93 Room Air 06/11/19 08:00 Room Air 06/11/19 05:53 97.9 87 18 98/69 (79) 92 Room Air 06/10/19 23:17 67 16 92/65 (74) 92 Room Air 06/10/19 20:00 Room Air 06/10/19 19:23 98.5 87 16 96/61 (73) 96 Room Air 06/10/19 15:12 98.0 63 16 94/68 (77) 94 Room Air 06/10/19 11:00 98.0 61 18 101/70 (80) 94 Room Air 06/10/19 08:00 Room Air 06/10/19 05:39 97.7 66 16 96/66 (76) 94 Room Air 06/10/19 01:11 62 18 105/71 (82) 92 Room Air 06/09/19 20:44 98.0 69 18 104/65 (78) 95 Room Air 06/09/19 20:00 Room Air 06/09/19 13:00 72 20 109/71 (84) Room Air 06/09/19 09:00 98.0 72 20 95/65 (75) 99 Room Air 06/09/19 08:00 Room Air 06/09/19 06:04 97.8 83 18 99/74 (82) 96 Room Air 06/08/19 23:58 98.4 86 16 93/65 (74) 100 Room Air 06/08/19 23:30 Room Air 06/08/19 21:51 85 18 94/60 (71) 97 Room Air 06/08/19 18:29 88 18 114/55 (74) 98 Vital Signs Date Time Temp Pulse Resp B/P (MAP) Pulse Ox O2 Delivery O2 Flow Rate FiO2 06/11/19 11:00 74 17 98/64 (75) 93 Room Air 06/11/19 05:53 97.9 I & O 06/10/19 06/10/19 06/11/19 15:00 23:00 07:00 Intake Total 789 ml 270 ml 1474 ml Balance 789 ml 270 ml 1474 ml Labs: Laboratory Tests Test 06/11/19 05:50 White Blood Count 5.3 x10^3/uL (4.0-11.0) Red Blood Count 3.94 x10^6/uL (3.50-5.40) Hemoglobin 12.3 g/dL (12.0-15.5) Hematocrit 37.4 % (36.0-47.0) Mean Corpuscular Volume 95 fL (79-100) Mean Corpuscular Hemoglobin 31 pg (25-35) Mean Corpuscular Hemoglobin Concent 33 g/dL (31-37) Red Cell Distribution Width 13.9 % (11.5-14.5) Platelet Count 172 x10^3/uL (140-400) Sodium Level 137 mmol/L (136-145) Potassium Level 4.1 mmol/L (3.5-5.1) Chloride Level 103 mmol/L (98-107) Carbon Dioxide Level 27 mmol/L (21-32) Anion Gap 7 (6-14) Blood Urea Nitrogen 29 mg/dL (7-20) H Creatinine 0.4 mg/dL (0.6-1.0) L Estimated GFR (Cockcroft-Gault) 159.7 BUN/Creatinine Ratio 73 (6-20) H Glucose Level 101 mg/dL (70-99) H Calcium Level 8.2 mg/dL (8.5-10.1) L Total Bilirubin 0.2 mg/dL (0.2-1.0) Aspartate Amino Transferase (AST) 33 U/L (15-37) Alanine Aminotransferase (ALT) 33 U/L (14-59) Alkaline Phosphatase 93 U/L (46-116) Total Protein 6.0 g/dL (6.4-8.2) L Albumin 2.5 g/dL (3.4-5.0) L Albumin/Globulin Ratio 0.7 (1.0-1.7) L Current Medications: I have reviewed the current psychotropics carefully including drug interactions. Risk benefit ratio favors no change other than as noted in my dictated progress note. Diagnosis: Problems: (1) Bipolar affective, mixed, sev w/ psych (2) UTI (urinary tract infection) (3) Dementia, vascular, with depression (4) Impulse control disorder HARVEY QUIJANO MD Jun 11, 2019 18:14
--- NOTE | 2019-06-12 10:33 | CONS ---
DATE OF CONSULTATION: 06/10/2019 PSYCHIATRIC CONSULTATION. This late entry of 06/10/2019 covers the elements not covered in my initial note. IDENTIFYING DATA: The patient is a 64-year-old female, seen in ICU bed 2, [facility] for a psychiatric consult requested by Dr. Ackerman to monitor the patient's psychotropics for her bipolar disorder/depression/dementia after she presented from [facility] to the Emergency Room at [facility], for a psychiatric stabilization as she was getting agitated, aggressive, hitting other people. She was obsessive, repeating things over and over, telling people to leave her alone. She was seen in the ER, was dehydrated and did have a UTI, appeared somewhat delirious, started on IV Rocephin admitted to the ICU. She continues to be agitated with mood lability and I have been asked to consult to make recommendations from a psychiatric standpoint. SUBJECTIVE: I met with the patient in the evening of 06/10/2019. Discussed with nursing staff, reviewed the chart. CHIEF COMPLAINT: "I am okay." Per nursing report on all day. The patient had been withdrawn, agitated, intermittently aggressive, refusing to eat and drink, but about half an hour before I saw her, she did awake and was more cooperative. HISTORY OF PRESENT ILLNESS: The patient has a long history of bipolar disorder with recent progressive memory deficits. She has been an inpatient on the Psychiatry Service on several occasions in the past, but most recently has been residing at [facility] fairly stable until the recent worsening. No active suicidal or homicidal ideation. She does have a history of mood swings. PAST PSYCHIATRIC HISTORY: As above. MEDICAL HISTORY: UTI, hyperlipidemia, hypothyroidism, seizure disorder. PAST SURGICAL HISTORY: Negative. CODE STATUS: Full code. ALLERGIES: CLOBAZAM, HYDROCODONE, VANCOMYCIN. FAMILY HISTORY: Noncontributory. SOCIAL HISTORY: No alcohol, drug abuse history. MENTAL STATUS EXAMINATION: The patient was seen individually on the evening of 06/10/2019. She was sitting up in bed starting to have her supper, which is the 1st meal she is having. Speech moderate latency, often responses monosyllabic. Abstraction fair, computation impaired, language function intact. Mood is somewhat dysphoric, anxious, slightly paranoid. No suicidal or homicidal ideation. LABORATORY DATA: Reviewed. IMPRESSION: Bipolar disorder, mixed with psychotic features; major neurocognitive disorder, early Alzheimer, vascular with delusion; urinary tract infection; anxiety disorder, unspecified; impulse control disorder, unspecified. Rest diagnoses as above. PLAN: From a psychiatric standpoint, I would recommend that she be continued on her current psychotropics. I have reviewed the MRAD. When she is medically stable, if her psychiatric symptoms persist, we will reassess her psychotropics. Dr. Ackerman, thank you for the opportunity to participate in your patient's care. We will follow with you. MAN Luis QUIJANO MD DR: LOYD/eboni JOB#: [id number] / [id number]
== END 2019-06-11 16:30 | DRG 689 ==
LOC: ER 17:41 → ICU 20:57
PROVIDERS: ADMIT Internal Medicine; ATTEND Internal Medicine
DX: N39.0 Urinary tract infection, site not specified (principal); E43 Unspecified severe protein-calorie malnutrition; F31.64 Bipolar disorder, current episode mixed, severe, with psychotic features; E86.0 Dehydration; E03.9 Hypothyroidism, unspecified; Z68.24 Body mass index [BMI] 24.0-24.9, adult; E78.5 Hyperlipidemia, unspecified; F01.50 Vascular dementia, unspecified severity, without behavioral disturbance, psychotic disturbance, mood disturbance, and anxiety; F02.80 Dementia in other diseases classified elsewhere, unspecified severity, without behavioral disturbance, psychotic disturbance, mood disturbance, and anxiety; F41.9 Anxiety disorder, unspecified; F43.21 Adjustment disorder with depressed mood; F63.9 Impulse disorder, unspecified; G30.9 Alzheimer's disease, unspecified; G40.909 Epilepsy, unspecified, not intractable, without status epilepticus; Z87.01 Personal history of pneumonia (recurrent); K21.9 Gastro-esophageal reflux disease without esophagitis; Z88.1 Allergy status to other antibiotic agents; Z88.8 Allergy status to other drugs, medicaments and biological substances
CPT/HCPCS: 36415; 80053; 81001; 83735; 85025; 85027; 87086; 87186; 96365; 96372; 96375; J0696; J1953; J2060; J3490; P9612; 99285-25